=== PATIENT | female | born 1950 | race Caucasian/White ===

== ENCOUNTER 2022-12-24 08:56 | Outpatient (OUT) | payer MEDICARE, SELFPAY ==
--- NOTE | 2022-12-24 08:58 | US_ITS ---
[address] [address] Patient Name: MADAN COONEY MRN: [id number] date: 1950 Sex: F Assigned Patient Location: [place] Current Patient Location: [place] Accession/Order Number: [id number] Exam Date: 12/24/2022 09:15 Report Date: 12/24/2022 12:27 At the request of: FRITZ STONER Procedure: US pelvis transvaginal EXAMINATION: US pelvis transvaginal HISTORY: Adnexal mass N94.89 COMPARISON: No relevant comparison available. TECHNIQUE: Transabdominal and/or transvaginal sonographic examination was performed as indicated by examination type. FINDINGS: UTERUS: Multiple hyperechoic areas within peripheral margin of uterus, suspected to be dystrophic calcifications; largest is 0.4 cm. Uterus size: 6.2 x 3.7 x 1.9 cm ENDOMETRIUM: Trace amount of fluid within fundal endometrial cavity, 1 mm in thickness. Endometrial thickness: 2 mm RIGHT OVARY: Normal size and appearance. Duplex Doppler demonstrates normal waveform and flow; resistive index 0.6. Ovary size: 1.7 x 1.0 x 0.9 cm LEFT OVARY: Normal size and appearance. Duplex Doppler demonstrates normal waveform and flow; resistive index 0.9. Ovary size: 3.0 x 1.6 x 0.9 cm CUL-DE-SAC: Unremarkable. No significant free fluid. BLADDER: Unremarkable. OTHER: None. IMPRESSION: 1. No specific findings to account for patient's left adnexal mass. Consider CT abdomen pelvis with IV and oral contrast for further evaluation if clinically indicated. 2. Suspect dystrophic calcifications within periphery of uterus. No definable mass. Electronically authenticated by: TIFFANIE LEON Date: 12/24/2022 12:27
== END 2022-12-24 08:57 ==
LOC: US 08:56
PROVIDERS: PCP Family Medicine; Visit Provider Obstetrics & Gynecology
DX: E27.8 Other specified disorders of adrenal gland (principal); N94.89 Other specified conditions associated with female genital organs and menstrual cycle
CPT/HCPCS: 76830

== ENCOUNTER 2023-01-22 07:34 | Outpatient (OUT) | payer MEDICARE, SELFPAY ==
--- NOTE | 2023-01-22 08:10 | CA_ITS ---
Patient: MADAN COONEY Exam Date: 01/22/2023 : 1950 Gender:F Ordering : KATE BRODERICK Admission #: [id number] Family : Order #: [id number] CLICK HERE TO VIEW EXAM ECHOCARDIOGRAM REPORT PROCEDURE: CA ECHO DOPPLER COMPLETE INDICATIONS: Nonrheumatic mitral valve regurgitation, h/o atrial fibrillation, hypertension COMPARISON: None. DESCRIPTION: COMPLETE ECHOCARDIOGRAM Real-time transthoracic echocardiography with 2D, M-mode, spectral and color flow Doppler performed. QUALITY: Technical quality was good. LEFT VENTRICLE: Normal chamber size. Proximal septal hypertrophy (sigmoid septum). Normal systolic function. LV EF: Normal left ventricular ejection fraction, (>55%). DIASTOLIC: Diastolic function is indeterminate. ATRIAL SEPTUM: Visually appears intact. LEFT ATRIUM: Mildly dilated. RIGHT ATRIUM: Normal chamber size. RIGHT VENTRICLE: Mildly dilated. Normal right ventricular systolic function. TRICUSPID VALVE: Normal mobility and thickness. No stenosis with mild regurgitation. Doppler studies reveal moderately (45-60) elevated right sided pressures. RVSP 49 mmHg MITRAL VALVE: Normal mobility and thickness. No evidence of mitral valve stenosis. There is no mitral annular calcification. Trivial mitral regurgitation. AORTIC VALVE: Normal trileaflet appearance. No visible sclerosis. Normal leaflet mobility. No evidence of aortic valve stenosis. No aortic regurgitation. AORTIC ROOT: Normal diameter and appearance. PULMONIC VALVE: Normal thickness and mobility. No stenosis. Trivial regurgitation. PERICARDIUM: No evidence of pericardial effusion. IVC: Collapses with inspirations. PLEURA: CONCLUSION: 1. Normal left ventricular systolic function. LVEF is 55 to 60%. 2. Mildly dilated right ventricle with normal systolic function. 3. Mildly dilated right atrium. 4. Mild tricuspid regurgitation. 5. Moderately elevated right-sided pressures. RVSP is 49 mmHg. Adult Echocardiography Procedure Report Left Ventricle LVEDD (3.7 - 5.6 cm): 3.73 cm LVESD (2.2 - 4.0 cm): 2.45 cm LVIVS thickness (0.6 - 1.2 cm): 1.05 cm LVPW thickness (0.5 - 1.0 cm): 0.55 cm e': 0.10 m/s E - e': 5.83 LVOT Max Gradient: 3.61 mm[Hg] LVOT Area (cm2): 0.95 m/s Peak Velocity (LVOT): 0.95 m/s Mean Velocity (LVOT): 0.60 m/s LVOT Diameter 1.91 cm Left Atrium LA Volume Index (2D A2C): 26.92 ml/m2 Left Atrium Systolic Dimension: 3.59 cm Mitral Valve MV E to A Ratio: 0.80 Mitral Valve A-Wave Peak Velocity: 0.71 m/s Mitral Valve E-Wave Peak Velocity: 0.56 m/s Right Ventricle Aorta AO Root Diam: 2.84 cm Ascending Ao Diam: 2.57 cm Aortic Valve AoV Area (Peak Jimenez): 2.77 cm2, 2.77 cm2 AoV Area (VTI): 2.75 cm2, 2.75 cm2 Peak Velocity(Antegrade Flow): 0.98 m/s Peak Gradient(Antegrade Flow): 3.87 mm[Hg] Mean Velocity(Antegrade Flow): 0.70 m/s Mean Gradient(Antegrade Flow): 2.17 mm[Hg] Velocity Time Integral: 22.69 cm Tricuspid Valve Peak Velocity (Regurgitant Flow): 3.39 m/s Pulmonic Valve Mean Gradient: 1.89 mm[Hg] Mean Velocity: 0.65 m/s Peak Velocity: 0.93 m/s, 0.90 m/s Peak Gradient: 3.21 mm[Hg], 3.47 mm[Hg] Right Atrium Right Atrium Systolic Pressure: 24.71 ml, 24.71 ml Dictated by: Ryan Roberts M.D. on 01/27/2023 at 16:52 Approved by: Ryan Roberts M.D. on 01/27/2023 at 16:56
== END 2023-01-22 07:35 | disposition home or self-care (01) ==
LOC: CARD 07:34
PROVIDERS: PCP Family Medicine; Visit Provider Nurse Practitioner
DX: I34.0 Nonrheumatic mitral (valve) insufficiency (principal); I48.0 Paroxysmal atrial fibrillation
CPT/HCPCS: 93306

== ENCOUNTER 2023-02-10 10:47 | Outpatient (OUT) | payer MEDICARE, SELFPAY ==
--- NOTE | 2023-02-10 10:49 | MM_ITS ---
Patient: MADAN COONEY Exam Date: 02/10/2023 : 1950 Gender:F Ordering : DR Ron Peterson . Admission #: [id number] Family : Order #: [id number] CLICK HERE TO VIEW EXAM RADIOLOGY REPORT PROCEDURE: MM TOMOSYNTHESIS SCREENING BI COMPARISON: MG MAMM SCREEN 3D JASMEET CAD, 02/09/2022. MG MAMM SCREEN 3D JASMEET CAD, 02/03/2021. MG MAMM SCREEN JASMEET W CAD, 02/02/2020. MG MAMM SCREEN JASMEET W CAD, 01/21/2015. INDICATIONS: Screening Calculator Name NCI Breast Cancer Risk Assessment Tool 5 Year Breast Cancer Risk 1.70% Lifetime Breast Cancer Risk 4.90% Personal Breast Cancer No Personal Ovarian Cancer No Treatments None Family Cancers Father with prostate cancer at age 58. LOCATION: [facility] BREAST COMPOSITION: Heterogeneously dense,which may obscure small masses. FINDINGS: DIAGNOSTIC CATEGORY 1--NEGATIVE. RIGHT BREAST: No significant suspicious finding. No significant change has occurred. LEFT BREAST: No significant suspicious finding. No significant change has occurred. RECOMMENDATIONS: ROUTINE MAMMOGRAM AND CLINICAL EVALUATION IN 12 MONTHS. PLEASE NOTE: A NORMAL MAMMOGRAM DOES NOT EXCLUDE THE POSSIBILITY OF BREAST CANCER. A CLINICALLY SUSPICIOUS PALPABLE LUMP SHOULD BE BIOPSIED. Dictated by: Leander Donahue M.D. on 02/11/2023 at 14:12 Approved by: Leander Donahue M.D. on 02/11/2023 at 14:14
== END 2023-02-10 10:48 | disposition home or self-care (01) ==
LOC: MAMMO 10:47
PROVIDERS: PCP Family Medicine; Visit Provider Family Medicine
DX: Z12.31 Encounter for screening mammogram for malignant neoplasm of breast (principal); Z80.42 Family history of malignant neoplasm of prostate
CPT/HCPCS: 77063; 77067

== ENCOUNTER 2023-05-11 11:23 | Outpatient (REF) | payer MEDICARE, SELFPAY ==
[2023-05-11 15:41] LABS: Occult Blood Negative
== END 2023-05-11 11:24 | disposition home or self-care (01) ==
LOC: LAB 11:23
PROVIDERS: PCP Family Medicine; Visit Provider Family Medicine
DX: K92.1 Melena (principal)
CPT/HCPCS: G0328

== ENCOUNTER 2023-09-27 10:27 | Outpatient (OUT) | payer MEDICARE, SELFPAY ==
--- OUTSIDE RECORDS SUMMARY | 2023-09-27 10:32 | XMS_ITS | CCD ---
Author Organization [facility] Care Team Providers Care Pony Worker Name Role Phone DIONY ., DR DOBBS Primary Care Unavailable FREDY ., BRANDO Consulting Unavailable FREDY ., BRANDO Attending Unavailable FREDY ., BRANDO Admitting Unavailable DALI MYERS Consulting Unavailable EDWARD, DR TIFFANIE Ragland Consulting Unavailable CASSIE PERRY Attending Unavailable CASSIE PERRY Admitting Unavailable HOY ., DR DOBBS Primary Care Unavailable CASSIE PERRY Consulting Unavailable HOY ., DR DOBBS Admitting Unavailable HOY ., DR DOBBS Primary Care Unavailable HOY ., DR DOBBS Consulting Unavailable HOY ., DR DOBBS Attending Unavailable [place], DR RAFIQ Chi Consulting Unavailable LEAH SEALS Consulting Unavailable LEAH SEALS Attending Unavailable LEAH SEALS Admitting Unavailable HOY ., DR DOBBS Primary Care Unavailable LEAH SEALS Consulting Unavailable LEAH SEALS Attending Unavailable LEAH SEALS Admitting Unavailable HOY ., DR DOBBS Primary Care Unavailable HOY ., DR DOBBS Consulting Unavailable HOY ., DR DOBBS Attending Unavailable HOY ., DR RINUK Patricia Unavailable HOY ., DR DOBBS Primary Care Unavailable RAFIQ SEALS Unavailable MYRA LEUGN Attending Unavailable MYRA LEUNG Admitting Unavailable DIONY ., DR DOBBS Primary Care Unavailable MYRA LEUNG Consulting Unavailable Broderick Solomon Unavailable KATE BRODERICK Attending Unavailable KATE BRODERICK Attending Unavailable Allergies Allergy Classification Reported Allergen(s) Allergy Type Date of Onset Reaction(s) Facility (1 source) Sulfonamides (Antibiotic) Drug allergy (disorder) 09-01-19 21 [facility] Repository (1 source) Sulfamethoxazole / Trimethoprim Drug Allergy NAILS TURNED PURPLE [employer] (PTG) Other (1 source) Sulfonamides (Antibiotic); 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: [SULFA (SULFONAMIDE ANTIBIOTICS)] Propensity to adverse reactions to drug (disorder) 12-03-19 [facility] Repository Medications Current Medications Medication Drug Class(es) Dates Sig (Normalized) Sig (Original) apixaban 5 mg oral tablet (1 source) Factor Xa Inhibitor take 1 tablet by mouth every twelve hours Eliquis 5 MG 1 tablet Orally Twice a day Active azithromycin 250 mg oral tablet (1 source) Macrolide Antimicrobial Start: 04-22-2023 Azithromycin 250 MG 2 tablets on the first day, then 1 tablet daily for 4 days Orally Once a day for 5 day(s) Apr, Active biotin 10 mg oral tablet (1 source) Biotin 10 MG as directed Orally Active Calcium 600 + D 600-200 MG-UNIT (1 source) take 1 tablet by mouth twice daily at mealtime Calcium 600 + D 600-200 MG-UNIT 1 tablet with food Orally bid Active Centrum Silver Adult 50+ - (1 source) Centrum Silver Adult 50+ - as directed Orally Active cranberry preparation 250 mg oral capsule (1 source) Non-Standardized Food Allergenic Extract, Non-Standardized Plant Allergenic Extract Cranberry 250 MG as directed Orally Active hydroCHLOROthiazide / Lisinopril (1 source) Thiazide Diuretic, Angiotensin Converting Enzyme Inhibitor Lisinopril-hydro CHLOROthiazide Active Metoprolol (1 source) beta-Adrenergic Lucretia Metoprolol Succinate ER Active molnupiravir 200 MG Oral Capsule [Lagevrio] (1 source) Start: 04-22-2023 take 4 capsules by mouth every twelve hours Molnupiravir 200 MG 4 capsules Orally every 12 hrs for 5 day(s) Apr, Active potassium 99 mg extended release oral tablet (1 source) take 1 tablet by mouth once daily Potassium 99 MG 1 tablet Orally Once a day Active Simvastatin (1 source) HMG-CoA Reductase Inhibitor Simvastatin Active Vitamin D-3 1000 UNIT (1 source) take 2 tablets by mouth once daily Vitamin D-3 1000 UNIT 2 tablet Orally Once a day Active Completed/Discontinued Medications Medication Drug Class(es) Dates Sig (Normalized) Sig (Original) cyclobenzaprine hydrochloride 10 mg oral tablet (1 source) Muscle Relaxant Start: 1 take 1 tablet by mouth every eight hours Cyclobenzaprine HCl 10 MG 1 tablet as needed Orally Three times a day for 10 days Oct, Not-Taking methylPREDNISolone 4 mg oral tablet (1 source) Corticosteroid Start: 1 methylPREDNISolone 4 MG as directed Orally Once a day for 6 days Oct, Not-Taking Problems Active Problems Problem Classification Problem Date Documented Da te Episodic/Chronic Cardiac dysrhythmias (2 sources) Paroxysmal atrial fibrillation; 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: [Paroxysmal atrial fibrillation] Onset: 12-02-2022 Chronic Cardiac dysrhythmias (5 sources) Palpitations; 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: [PALPITATIONS] Onset: 08-16-2022 Episodic Essential hypertension (2 sources) Essential (primary) hypertension; 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: [Essential (primary) hypertension] Onset: 12-30-2022 Chronic Fluid and electrolyte disorders (1 source) Hypokalemia; 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: [HYPOKALEMIA] Onset: 08-18-2022 Episodic Heart valve disorders (2 sources) Nonrheumatic mitral (valve) insufficiency; 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: [Nonrheumatic mitral (valve) insufficiency] Onset: 12-30-2022 Chronic Mycoses (4 sources) Tinea unguium; 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: [TINEA UNGUIUM] Onset: 10-23-2022 Episodic Osteoporosis (4 sources) Age-related osteoporosis without current pathological fracture; 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: [AGE-REL OSTEOPOR W/O CURR PATH FX] Onset: 08-25-2022 Chronic Other aftercare (1 source) detention (current) use of anticoagulants; 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: [INTERMEDIATE CURRNT USE ANTICOAGULANTS] Onset: 08-18-2022 Episodic Other aftercare (1 source) Other roasterman (current) drug therapy; 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: [OTH TEACHER THEATER ARTS CURRENT DRUG THERAPY] Onset: 08-18-2022 Episodic Other bone disease and musculoskeletal deformities (1 source) Other specified disorders of bone density and structure, multiple sites; 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: [OTH D/O BONE DENSITY STRUCT MX SITE] Onset: 08-28-2022 Episodic Other nutritional; endocrine; and metabolic disorders (1 source) Hypomagnesemia; 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: [HYPOMAGNESEMIA] Onset: 08-18-2022 Chronic Other upper respiratory infections (4 sources) Chronic sinusitis, unspecified; 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: [CHRONIC SINUSITIS UNSPECIFIED] Onset: 03-30-2022 Chronic Other upper respiratory infections (1 source) Acute upper respiratory infection, unspecified Episodic Past or Other Problems Problem Classification Problem Date Documented Da te Episodic/Chronic Other circulatory disease (4 sources) Other specified symptoms and signs involving the circulatory and respiratory systems; 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: [OTH SPEC SX SIGNS INVLV CIRC RS] Onset: 03-12-2022 Episodic Other screening for suspected conditions (not mental disorders or infectious disease) (4 sources) Encounter for screening mammogram for malignant neoplasm of breast; 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: [ENC SCR MAMMO MALIG NEOPLASM BREAST] Onset: 02-09-2022 Episodic Residual codes; unclassified (1 source) Family history of malignant neoplasm of prostate; 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: [FAMILY HX MALIG NEOPLASM PROSTATE] Onset: 02-11-2022 Episodic Unclassified (1 source) Contact with and (suspected) exposure to covid-19 Z20.822 Viral infection (2 sources) COVID-19; 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: [COVID-19] Onset: 04-01-2022 Results Test Name Value Interpretation Reference Range Facility Office Visiton 06-04-2023 Follow-up visit [id number] Sharri Cooney 1950 F Date Provider Department Center 06/04/2023 KATE WHITTEN [facility] No family history on file Level of Service:04536 CO OFFICE/OUTPATIENT ESTABLISHED MOD MDM 30-39 MIN Normal [facility] COVID/FLU RT-PCRon 3 SARS-CoV-2 (COVID-19) RNA VERONICA+probe Ql (Unsp spec) Positive [employer] (PT[employer]) Other COVID/FLU RT-PCR Negative [employer] Other Office Visiton 12-30-2022 Follow-up visit [id number] Sharri Cooney 1950 F Date Provider Department Center [facility] No family history on file Level of Service:19793 CO OFFICE/OUTPATIENT ESTABLISHED MOD MDM 30-39 MIN Reason for Visit and Comments: Follow-up [391414] - Yearly visit- ER sodium mag and potassium low. Wasn't admitted just in ER. No issues since being out Normal [facility] SGOTon 10-23-2022 AST [Catalytic activity/Vol] 45 U/L Critically high 15-37 [facility] Comment on above: Performed By: #### A LT, AST #### [facility] Laboratory [address] [place] [address] Dr. Fred Jackson SGPTon 10-23-2022 ALT [Catalytic activity/Vol] 48 U/L Normal 14-59 [facility] Comment on above: Performed By: #### A LT, AST #### [facility] Laboratory [address] [place] [address] Dr. Fred Jackson SGOTon 09-10-2022 AST [Catalytic activity/Vol] 40 U/L Critically high 15-37 [facility] Comment on above: Performed By: #### A LT, AST #### [facility] Laboratory [address] [place] [address] Dr. Fred Jackson PTon 09-10-2022 ALT [Catalytic activity/Vol] 52 U/L Normal 14-59 [facility] Comment on above: Performed By: #### A LT, AST #### [facility] Laboratory [address] [place] [address] Dr. Fred Jackson XR DEXA BONE DENSITYon 08-25 XR DEXA BONE DENSITY DEXA Bone Density Study CLINICAL: Evaluate bone mineral density. Postmenopausal COMPARISON: FINDINGS: The bone density study was assessed by dual-energy x-ray absorptiometry with the NormOxys scanner. The test results are expressed in T-Score, which is used for diagnosis for osteoporosis, and reflects the standard deviations from the mean peak bone mineral density in young adults. Additional information regarding the Z-Score reflects the standard deviations from the mean peak bone mineral density for age- and gender- matched subject. Lumbar Spine (L1-L4): BMD (gm/cm2): 0.918 T-Score: -2.2 Left Hip: BMD (gm/cm2): 0.867 T-Score: -1.1 Left Femoral Neck: BMD (gm/cm2): O.821 T-Score: -1.6 Right Hip: BMD (gm/cm2): 0.856 T-Score: -1.2 Right Femoral Neck: BMD (gm/cm2): 0.821 T-Score: Get a 1.6 IMPRESSION: 1. Lumbar spine indicates osteopenia. 2. Both hips indicate osteopenia. REFERENCE: In children, postmenopausal women and males under age 50 not at increased risk for fractures, only Z-Scores, not T-Scores, are used to indicate fracture risk. A Z-Score above -2.0 is defined as within the expected range for age and Z-Score at or less than -2.0 is below the expected range for age. A Z-Score below the expected range for age in a patient with recent fractures and/or chronic corticosteroid treatment is consistent with a diagnosis of osteoporosis. In postmenopausal women and males over 50, comparison of the measured bone mineral density with the average value in young normal subjects (the T-Score) has been found to be useful in assessing fracture risk. Fracture risk approximately doubles for each 1.0 standard deviation (SD) that the individual's hip or spine bone mineral density is below the average value of young normal subjects. The World health Organization (WHO) has provided the following definitions: 1. Normal: T-Score within one standard deviation of young adult mean value (T-Score greater than -1.0). 2. Osteopenia (low bone mass): T-Score more than one standard deviation below the young adult mean but less than 2.5 standard deviations below the young adult mean (T-Score between -1.0 and -2.5). 3. Osteoporosis: T-Score more than 2.5 standard deviations below the young adult mean (T-Score less than -2.5). 4. Sever Osteoporosis (established osteoporosis): T-Score more than 2.5 standard deviations below young adult and one or more fragility fracture (T-Score less than -2.5 + fragility fractures). Electronically authenticated by: RAFIQ SEALS Date: 2022-08-25 09:50 Normal [facility] BNPon 08-16-2022 Natriuretic peptide B (Bld) [Mass/Vol] 87.0 pg/mL Normal <=900.0 [facility] Comment on above: Performed By: #### T SH, CMP, BNP, CMADM ####[facility] [address] [place], [place] [address]RjCaroline Fred Jackson CARDIAC JASSI ADMITon 023 CK [Catalytic activity/Vol] 152 U/L Normal 26-192 [facility] Comment on above: Performed By: #### T SH, CMP, BNP, CMADM ####[facility] [address] [place] [id number]. Fred Jackson CK.MB [Mass/Vol] 2.96 ng/mL Normal <=3.60 [facility] Comment on above: Performed By: #### T SH, CMP, BNP, CMADM ####[facility] [address] [place] [address]Dr. Fred Jackson HSTROP 6.1 pg/mL Normal 4.0-51.3 [facility] Comment on above: Result Comment: CUT- OFF POINTS HAVE BEEN ESTABLISHED BASED ON THE FOURTH UNIVERSAL DEFINITIONS OF MYOCARDIAL INFARCTION. THE UPPER REFERENCE LIMIT (URL) OF TROPONIN, DEFINED THE 99TH PERCENTILE OF cTnI DISTRIBUTION IN A REFERENCE POPULATION, HAS BEEN CONFIRMED THE DECISION THRESHOLD FOR WI DIAGNOSIS. Performed By: #### T SH, CMP, BNP, CMADM ####[facility] [address] [place] [address]Dr. Fred Jackson ANGELI 80 ng/mL Normal 9-82 [facility] Comment on above: Performed By: #### T SH, CMP, BNP, CMADM ####[facility] [address] [place] [address]Dr. Fred Jackson CBC AUTO DIFFon 08-16-2022 BASO # 0.1 103/ul Normal 0.0-0.1 [facility] Comment on above: Performed By: #### C BC #### [facility] Laboratory [address] [place] [address] Dr. Fred Jackson Basophils/100 WBC (Bld) 1.4 % Normal 0.2-2.0 [facility] Comment on above: Performed By: #### C BC #### [facility] Laboratory [address] [place] [address] [address] Fred Jackson EO # 0.3 103/ul Normal 0.0-0.7 [facility] Comment on above: Performed By: #### C BC #### [facility] Laboratory [address] [place] [address] Dr. Fred Jackson Eosinophils/100 WBC (Bld) 3.1 % Normal 0.9-7.0 [facility] Comment on above: Performed By: #### C BC #### [facility] [address] [place] [address] [address] Frde Jackson Erythrocyte distribution width (RBC) [Ratio] 12.0 % Normal 11.0-15.0 [facility] Comment on above: Performed By: #### C BC #### [facility] [address] [place] [address] [address] Fred Jackson Hematocrit (Bld) [Volume fraction] 40.5 % Normal 36.0-48.0 [facility] Comment on above: Performed By: #### C BC #### [facility] [address] [place] [address] [address] Fred Jackson Hemoglobin (Bld) [Mass/Vol] 13.8 g/dL Normal 12.0-16.0 [facility] Comment on above: Performed By: #### C BC #### [facility] [address] [place] [address] Dr. Fred Jackson IG # 0.06 10e3/ul Critically high 0.00-0.03 [facility] Comment on above: Performed By: #### C BC #### [facility] [address] [place] [address] [address] Fred Jackson IG % 0.6 % Critically high 0.0-0.5 [facility] Comment on above: Performed By: #### C BC #### [facility] [address] [place] [address] Dr. Fred Jackson LYMPH # 3.8 103/ul Normal 1.2-3.8 [facility] Comment on above: Performed By: #### C BC #### [facility] [address] [place] [address] Dr. Fred Jackson Lymphocytes/100 WBC (Bld) 36.6 % Normal 20.5-60.0 [facility] Comment on above: Performed By: #### C BC #### [facility] [address] [place] [address] [address] Fred Jackson MANUAL DIFF REQ NO Normal [facility] [place] [facility] Comment on above: Performed By: #### C BC #### [facility] [address] [place] [address] Dr. Fred Jackson MCH (RBC) [Entitic mass] 31.2 pg Normal 26.7-34.0 [facility] Comment on above: Performed By: #### C BC #### [facility] [address] [place] [address] Dr. Fred Jackson MCHC (RBC) [Mass/Vol] 34.1 g/dL Normal 29.9-35.2 [facility] Comment on above: Performed By: #### C BC #### [facility] [address] [place] [address] Dr. Fred Jackson MCV (RBC) [Entitic vol] 91.6 fL Normal 81.0-99.0 [facility] Comment on above: Performed By: #### C BC #### [facility] [address] [place] [address] Dr. Fred Jackson MONO # 1.2 103/ul Critically high 0.3-0.8 [facility] Comment on above: Performed By: #### C BC #### [facility] [address] [place] [address] Dr. Fred Jackson Monocytes/100 WBC (Bld) 11.3 % Normal 1.7-12.0 [facility] Comment on above: Performed By: #### C BC #### [facility] [address] [place] [address] Dr. Fred Jackson NEUT # 4.9 103/ul Normal 1.4-6.5 [facility] Comment on above: Performed By: #### C BC #### [facility] [address] [place] [address] Dr. Fred Jackson Neutrophils/100 WBC (Bld) 47.0 % Normal 43.0-75.0 [facility] Comment on above: Performed By: #### C BC #### [facility] [address] [place] [address] Dr. Fred Jackson Platelet mean volume (Bld) [Entitic vol] 8.9 fL Critically low 9.5-13.5 [facility] Comment on above: Performed By: #### C BC #### [facility] [address] [place] [address] [address] Fred Jackson PLT 404 103/ul Normal 150-450 [facility] Comment on above: Performed By: #### C BC #### [facility] [address] [place] [address] [address] Fred Jackson RBC 4.42 106/ul Normal 4.20-5.40 [facility] Comment on above: Performed By: #### C BC #### [facility] [address] [place] [address] [address] Fred Jackson WBC 10.3 103/ul Normal 4.0-11.0 [facility] Comment on above: Performed By: #### C BC #### [facility] [address] [place] [address] [address] Fred Jackson PROF 14(COMP METB)on 023 Albumin [Mass/Vol] 4.3 g/dL Normal 3.4-5.0 [facility] Comment on above: Performed By: #### T SH, CMP, BNP, CMADM ####[facility] [address] [place] [address]DrCaroline Jackson Albumin/Globulin [Mass ratio] 1.2 {ratio} Normal [facility] Comment on above: Performed By: #### T SH, CMP, BNP, CMADM ####[facility] [address] [place] [address]DrCaroline Jackson ALP [Catalytic activity/Vol] 96 U/L Normal 46-116 [facility] Comment on above: Performed By: #### T SH, CMP, BNP, CMADM ####[facility] [address] [place] [id number] Jackson ALT [Catalytic activity/Vol] 34 U/L Normal 14-59 [facility] Comment on above: Performed By: #### T SH, CMP, BNP, CMADM ####[facility] [address] [place] [address]DrCaroline Jackson Anion gap [Moles/Vol] 16.6 mmol/L Normal [facility] Comment on above: Performed By: #### T SH, CMP, BNP, CMADM ####[facility] [address] [place] [address]Dr. Fred Jackson AST [Catalytic activity/Vol] 39 U/L Critically high 15-37 [facility] Comment on above: Performed By: #### T SH, CMP, BNP, CMADM ####[facility] [address] [place] [address]Dr. Fred Jackson Bilirubin [Mass/Vol] 0.8 mg/dL Normal 0.2-1.0 [facility] Comment on above: Performed By: #### T SH, CMP, BNP, CMADM ####[facility] [address] [place], [place] [address]Dr. Fred Jackson Calcium [Mass/Vol] 10.1 mg/dL Normal 8.5-10.1 The [facility] Comment on above: Performed By: #### T SH, CMP, BNP, CMADM ####[facility] [address] [place], [place] [address]Dr. Fred Jackson Chloride [Moles/Vol] 91 mmol/L Critically low 98-107 [facility] Comment on above: Performed By: #### T SH, CMP, BNP, CMADM ####[facility] [address] [place], [place] [address]Dr. Fred Jackson CO2 [Moles/Vol] 25.5 mmol/L Normal 21.0-32.0 [facility] Comment on above: Performed By: #### T SH, CMP, BNP, CMADM ####[facility] [address] [place], [place] [address]Dr. Fred Jackson Creatinine [Mass/Vol] 0.95 mg/dL Normal 0.55-1.02 [facility] Comment on above: Performed By: #### T SH, CMP, BNP, CMADM ####[facility] [address] [place] [address]Dr. Fred Jackson EGFR-AF MOLDOVAN >60 Normal >=60 [facility] Comment on above: Performed By: #### T SH, CMP, BNP, CMADM ####[facility] [address] [place] [address]Dr. Fred Jackson EGFR-NON AF MOLDOVAN 58 mL/min/1.73m2 Critically low >=60 [facility] Comment on above: Performed By: #### T SH, CMP, BNP, CMADM ####[facility] [address] [place] [address]Dr. Fred Jackson Globulin (S) [Mass/Vol] 3.6 g/dL Normal [facility] Comment on above: Performed By: #### T SH, CMP, BNP, CMADM ####[facility] [address] [place] [address]Dr. Fred Jackson Glucose [Mass/Vol] 116 mg/dL Critically high 74-106 [facility] Comment on above: Performed By: #### T SH, CMP, BNP, CMADM ####[facility] [address] [place] [address]Dr. Fred Jackson Potassium [Moles/Vol] 3.1 mmol/L Critically low 3.5-5.1 [facility] Comment on above: Performed By: #### T SH, CMP, BNP, CMADM ####[facility] [address] [place] [address]Dr. Fred Jackson Protein [Mass/Vol] 7.9 g/dL Normal 6.4-8.2 [facility] Comment on above: Performed By: #### T SH, CMP, BNP, CMADM ####[facility] [address] [place] [address]Dr. Fred Jackson Sodium [Moles/Vol] 130 mmol/L Critically low 136-145 [facility] Comment on above: Performed By: #### T SH, CMP, BNP, CMADM ####[facility] [address] [place] [address]Dr. Fred Jackson Urea nitrogen [Mass/Vol] 17.0 mg/dL Normal 7.0-18.0 [facility] Comment on above: Performed By: #### T SH, CMP, BNP, CMADM ####[facility] [address] [place] [address]Dr. Fred Jackson Urea nitrogen/Creatinin e [Mass ratio] 17.9 mg/mg Normal [facility] Comment on above: Performed By: #### T SH, CMP, BNP, CMADM ####[facility] [address] [place] [id number]. Fred Jackson PROTIMEon 08-16-2022 INR Coag (PPP) [Relative time] 1.01 {INR} Normal [facility] Comment on above: Performed By: #### P TT, PT ####[facility] [address] [place] [address]Dr. Fred Jackson INR GUIDELINES SEE BELOW Normal [facility] [facility] Comment on above: Result Comment: DOTTY RED INR: 2.0 - 3.0 CONDITIONS NOT LISTED BELOW 2.5 - 3.5 FOR PROSTHETIC HEART VALVE REPLACEMENT 2.5 - 3.5 RECURRENT THROMBOSIS Performed By: #### P TT, PT ####[facility] [address] [place] [address]Dr. Fred Jackson PT Coag (PPP) [Time] 10.7 s Normal 9.0-11.6 [facility] Comment on above: Performed By: #### P TT, PT ####[facility] [address] [place] [address]Dr. Fred Jackson PTTon 08-16-2022 aPTT Coag (Bld) [Time] 33.9 s Normal 22.3-36.2 [facility] Comment on above: Performed By: #### P TT, PT ####[facility] [id number] [place] [address]Dr. Fred Jackson TROPONIN, HIGH SENSITIVITYon 08-16-2022 HSTROP 15.1 pg/mL Normal 4.0-51.3 The [facility] Comment on above: Result Comment: CUT- OFF POINTS HAVE BEEN ESTABLISHED BASED ON THE FOURTH UNIVERSAL DEFINITIONS OF MYOCARDIAL INFARCTION. THE UPPER REFERENCE LIMIT (URL) OF TROPONIN, DEFINED THE 99TH PERCENTILE OF cTnI DISTRIBUTION IN A REFERENCE POPULATION, HAS BEEN CONFIRMED THE DECISION THRESHOLD FOR WI DIAGNOSIS. Performed By: #### H STROPN #### [facility] Laboratory [address] [place], [place] [address] Dr. Fred Jackson TSHon 08-16-2022 TSH 4.364 uIU/mL Critically high 0.358-3.740 The [facility] Comment on above: Performed By: #### T SH, CMP, BNP, CMADM ####[facility] [address] [place], [place] [address]IwDr. Fred Jackson XR CHEST 1 Von 08-16-2022 XR CHEST 1 V EXAM: XR CHEST 1 V HISTORY: CHEST PAIN, UNSPECIFIED COMPARISON: 02/10/2021 TECHNIQUE: Chest single view. FINDINGS: Lines/tubes/devices: EKG leads overlie the chest. No indwelling lines are seen. Cardiomediastinum: Cardiac silhouette appears normal in size. Mildly tortuous aorta. Vasculature: No increased pulmonary vasculature. Lungs/pleura: No consolidation, sizeable effusion, or visible pneumothorax. Minimal linear scarring or subsegmental atelectasis towards the left lung base. Bones/soft tissues: Bony thorax appears grossly unchanged as seen. Mild chronic degenerative changes of the spine with slight apex right curvature. Regional soft tissues unremarkable. IMPRESSION: No acute cardiopulmonary findings. Electronically authenticated by: DALI MYERS Date: 2022-08-16 00:02 Normal [facility] Cov[facility]-19 PCR ([facility]on 03-06 SARS-CoV-2 (COVID-19) RNA VERONICA+probe Ql (Unsp spec) Detected Critically abnormal NOT DETECTED [facility] Comment on above: Result Comment: This test is not yet approved or cleared by the [place] FDA. When there are no FDA-approved or cleared tests available, and other criteria are met, FDA can make tests available under an emergency access mechanism called an Emergency Use Authorization (EUA). The EUA for this test is supported by the Strip Machine Operator of Health and Human Service's (HHS's) declaration that circumstances exist to justify the emergency use of in vitro diagnostics for the detection and/or diagnosis of the virus that causes COVID-19. This EUA will remain in effect (meaning this test can be used) for the duration of the COVID-19 declaration justifying emergency of IVDs, unless it is terminated or revoked by FDA (after which the test may no longer be used). Performed By: #### C VDTBH ####[id number] [place], [place] [address]Yf. Fred Jackson US CAROTID ART BILon 022 US CAROTID ART JASMEET EXAMINATION: US CAROTID ART JASMEET HISTORY: Cardiovascular symptoms COMPARISON: No relevant comparison available. TECHNIQUE: Duplex Doppler ultrasound analysis of carotid and vertebral arteries. . Bilateral carotid arterial duplex examination was performed using B-mode, color flow and spectral analysis. Carotid stenosis is reported according to validated velocity parameters, similar to NASCET criteria. FINDINGS: RIGHT CAROTID ARTERY: No visible stenosis or significant plaque. RIGHT VERTEBRAL: Antegrade flow. Subclavian: PSV: 127.6 cm/s EDV: 0.0 cm/s CCA: Prox: PSV: 95.0 cm/s EDV: 23.0 cm/s Mid: PSV: 90.5 cm/s EDV: 25.4 cm/s Distal: PSV: 96.4 cm/s EDV: 23.5 cm/s BULB: PSV: 54.8 cm/s EDV: 12.8 cm/s ICA: Prox: PSV: 72.5 cm/s EDV: 17.6 cm/s Mid: PSV: 75.8 cm/s EDV: 20.8 cm/s Distal: PSV: 91.9 cm/s EDV: 24.1 cm/s ECA: PSV: 91.9 cm/s EDV: 14.4 cm/s VERTEBRAL: PSV: 54.7 cm/s EDV: 12.8 cm/s ICA/CCA ratio: PSV: 1.0 EDV: 1.0 LEFT CAROTID ARTERY: No visible stenosis or significant plaque. LEFT VERTEBRAL: Antegrade flow. Subclavian: PSV: 175.3 cm/s EDV: 0.0 cm/s CCA: Prox: PSV: 90.5 cm/s EDV: 21.5 cm/s Mid: PSV: 78.6 cm/s EDV: 21.5 cm/s Distal: PSV: 78.6 cm/s EDV: 19.5 cm/s BULB: PSV: 58.9 cm/s EDV: 15.6 cm/s ICA: Prox: PSV: 66.8 cm/s EDV: 19.5 cm/s Mid: PSV: 110.1 cm/s EDV: 27.4 cm/s Distal: PSV: 80.5 cm/s EDV: 21.5 cm/s ECA: PSV: 118.3 cm/s EDV: 16.0 cm/s VERTEBRAL: PSV: 38.4 cm/s EDV: 7.6 cm/s ICA/CCA ratio: PSV: 1.4 EDV: 1.4 IMPRESSION: 1. 0-49% flow stenosis within the right and left carotid arteries. 2. No significant atherosclerotic disease. 3. Incidental note is made of several colloid cysts within thyroid gland. Electronically authenticated by: TIFFANIE LEON Date: 2022-03-12 14:51 Normal [facility] MAMM SCREEN 3D JASMEET CADon 02-09-2022 MAMM SCREEN 3D JASMEET CAD Patient: SHARRI COONEY Exam Date: 02/09/2022 : 1950 Gender:F Ordering : DR RINKU PETERSON . Admission #: [id number] Family : Order #: [id number] CLICK HERE TO VIEW EXAM RADIOLOGY REPORT PROCEDURE: MAMMOGRAM SCREENING 3D BILATERAL CAD COMPARISON: MAMM SCREEN JASMEET W CAD, 02/02/2020. MAMM SCREEN 3D JASMEET CAD, 02/03/2021. INDICATIONS: Screening mammography Calculator Name NCI Breast Cancer Risk Assessment Tool 5 Year Breast Cancer Risk 1.70% Lifetime Breast Cancer Risk 5.10% Personal Breast Cancer No Personal Ovarian Cancer No Treatments None Family Cancers Father with prostate cancer at age 58. LOCATION: [facility] BREAST COMPOSITION: Heterogeneously dense,which may obscure small masses. FINDINGS: DIAGNOSTIC CATEGORY 1--NEGATIVE. NO CHANGE FROM COMPARISON ASSESSMENT. Scattered benign-appearing calcifications are present. Scattered benign-appearing lymph nodes are present. RIGHT BREAST: No significant suspicious finding. LEFT BREAST: No significant suspicious finding. RECOMMENDATIONS: ROUTINE MAMMOGRAM AND CLINICAL EVALUATION IN 12 MONTHS. PLEASE NOTE: A NORMAL MAMMOGRAM DOES NOT EXCLUDE THE POSSIBILITY OF BREAST CANCER. A CLINICALLY SUSPICIOUS PALPABLE LUMP SHOULD BE BIOPSIED. Dictated by: Rafiq Zuñiga MD on 02/09/2022 at 09:48 Approved by: Rafiq Zuñiga MD on 02/09/2022 at 09:50 Normal [facility] Coding Summary.on 03-12-2021 Coding Summary. [id number] Gh0bWw+PGhlYWQ+PE1FV GBiR76kpHIhyD7HF0dNS O0PBJQUNCYDTQ0WEL7et AR2PWfyP0QudtJw SdjzqLWmJM91ZKm4PMF4 nAimJSjhhO4rdOHiB4a9 PpVyHM34uW55QJuzBKBb GiZ4RbFskzibbIRn X8uvQeWxuNZmFxq+PHRh YmxlIHdpZHRoPScxMDAl NaPcgVmqZV0kPe6cJJMy LWNvbGxhcHNlOiBj q4xaCCZpACtoDG4tmVqh X2BbdIE1ZXDmo2c8Xg68 dHI+NJNgUOD5uRpdAZxv h565QqRfq3kxPOV4 sEPqVTgfYDJ5S27co6X7 PLLaTEXeWDS3cVZ4cN0n vOjeiuyyC3NpiQRuSbB7 GOB4qDQrzM1jcMvf hwglyM6kXti+M55BTB3K LCRJEV0UNgz2T0CuIjud dHI+KD86TXAwAG60sPJi jCQml3konEn4RtMf LCLzJNY1vUknVVdfv6Ff ALAiA65ugRSzz7F7EDZu fYhjtWKuUeBuxDC8uD6w TIufaudkp7lovwiz Oinkl2bsso87lE56V87l TJyoSHFpXHF9FNOyUOHz kWrdzi1lxU7zKy3+IDxj p7zoc1wwuJc5EdEb BKPyfmYayZnsFAS7f2Gg Fj02T0TttUyzt4IdBux2 us22zYQhn0W6qDY6CIhc IZDtyG3dKWxrYoL0 XPGgRuJssO95gDUkZQfw Gb5jzOslbJxlYU5mQHZj ufjgTPItgK9zQHLxkVPr fAccZS2fKEFgpgas d479TaVdEBR3GNKwyEZf P4GklT6xHbMaMVHvEQPp Z7GjaXZiUFgqN600CPky PxW0AJKkycXrD5Qw COVueFprOyA9y4N8Xx4F i0DivuqjVHG5RBabUUX3 UvO8UhNwMjS0N1IrNif0 RJYxnHpoKF2zG2Ij AHVxgfydknaglGC7LHAt AXYpaF07rVFlATutAp0z d8S0s571ZQVyIHTvwG35 Bu0bdUbmMCUxdKBB mQ9kmwhzh4fnjpebCpBz HSLfGAh9EHi2YFCcpDke OiNxZLS5WfF9NJV5mULr xP5izGefoxbcvQ5d Oyc+K29luG2kYCM6CJY9 nisrUMSmpnEzVQ60AE72 Z8KxEtfahPUbqPM+PGRp jkLzzNcuUU1dNnHk w5jgq4KpLCjhI1ToDIWa OTbaFne6WGYtEHG6aLW2 uL2vUOKcDCtqi1Y2jZW8 X9PwznQwrb6og1hc LFGtRUbwS41qhKGmm7D5 OOSuwVI3SPNrfTggAtZn dB27Nid+QVWbnCiku2Yf Qsejz9jqp4jrnMd8 IjMwJSIgdmFsaWduPSJ0 w4XiTz04A52eDWqbNABo PNEfTVTpHDCqsWaalf3b eX1oKb1+PGNvbCB3 vGA7yK4dJEYiYpX6AWaj I161PtFozMEtYjygl7xr j8vpzEp8KkHfQLVhltFy fAdvNLQ3u3JsYf53 R03aCFssFJJiGPVyNZDj YVIhtSoyax4huY2eIo3+ MP7ir9pgqu80rR98fGV+ VFFfUOY7qKcjPIaq JDPaqJ0fCBgeDeR6BOLc RcBzmA51cPXuTVnmIz4d dKsohHduHY9tJBIfvuwn t539UqKdg8pbDPKt aUHwUZtzGDH5J44eg9M3 IFNyUQLnDZS4gFY6sE2x bGlnbjogbGVmdDsgdmVy jWamQTepIKvdT177 IHRvcDsnPlBhdGllbnQg HgTdWSi6G6LfAkp3QCEi yIvhVP0xgKFpNYfxXh9w hEvuzBdbNC3aKAVw lgvrg303GfTrl7lkHKIy yHYiNYohMIC1V94jw8C7 AGXsSZYnOPC5iSB9hT6n bGlnbjogbGVmdDsg ziZczMiuXTjaYMzqW506 IHRvcDsnPkJpcnRoIERh dWD3ZS86LY73ePQsl9C6 pPJ8I0NxWLIeerfw wsqdhEH9DHHfEFSvfB00 Ju9caGgpTz8yNBNsGJY5 EVHyaUFaB0SlkE0pBxEi SLWgXSSiC6WctKPo WNfzO146ZYxkNpC3ZEJu zlTzP1BbFMGpjZfvJfC3 h7E8Yi4KN6W7BG37OE88 mNQzd6E3aGE7K1Cj IUQarroccuyenNX8EGBy GMZobV40Sx0ttXkzKv2g UQVqUVH6KPDyfDJlB2Fh pI9yDcEoQOEhRAPw J5WmwFWtRHumU883YVoy BaL3FATqmuFsM4VxFEJa vWbmKvI3i9Y9Ig4GLLd2 WB85PX04yAAqe6A0 lRT1J1SlCKLmqifocccs nUX5CDPeUMRdlN28Qi0i xGfdCg3cGVZbIUB8XEEv wIFhV1QvrE5eBmCv GNEkIAWeI8HhwMAzOIxu I461NEswUkB7ZJYpuoOq D5KjJXJnnLsaRgM0u7Q1 Vv0DBCLnQD85OTL5 xQF5YM51PV72P3TlIjuo dGFibGU+PHRhYmxlIHdp ZHRoPScxMDAlJyBzdHls YT4pDo4mMLBtPGSr vLlowWAqCjMmn1rvWPCl GSdzEY7uyGfaD1FlpOV7 IAChp6w3Gc29P00zQ2Jb dXA+ZWXrqDW4mZL9 lU1jEdMqOeW8XRijN268 LkXpfFFbGhjma8mam4od uFk0GqG1CZGxawOdnEct FIX8q8SmVn92Q15h IHdpZHRoPSIxNSUiIHZh oBjxtp7btI7rEl8+PGNv hFP4uSV7nZ1mHuQnUiP9 IFrhK014JjQnmRCf Uhqff5jzj2lmpUr1SwOs RSFyeyIgoKfbUXT3r0Dx So41R6AcnTdei2JtEfy6 ie68yGRbt8Q9iMU6 P3BzCQDjnmjlcYOcrMob BA3cAGYrmyjaXBUudK5e ERNkT4h2EfLmCyO7IZas X7FlqcS8UCWvnRZs BJqgLUJ7F24ej3Z1ZQAn NKApOGQ9rGP4iY9jkBgt bjogbGVmdDsgdmVydGlj NKpxPHwsQ950APMp zNlsYWSadC9uTHZoiMOz jJyaNZ5uZWDhllnuBdEE UlJPTEwsIFNVWkFOTkU8 U5VzRyv0FROfhPul NB3yaJUpGCodSd4dlCvb oVtlKQ6oQIWduvlePSAx yK7fAPMslIEjgSadPI0i ZCBapjvxa538VpVp UQS3VXQpgJYsY7YtxX6w BnZyVCEdPYSuE0DvwJNv JUwuD268FBacPzA0PEGd gsLbU5PxNMTyqFlc VrG2j9I4Du3xPj3tJC0p SUCzXI81EO39hOXpq7T6 nBA4U7BuRRGdhrmnlmtx bCM5LUExWJGwnN09 pSYhYDdgLt6qa9V5c711 XXAkUXGczA33Rf7snGoy STShpEPXyH7scdonc6kq cjogIzAwMDAwMDt0 PXr7DUPzwMidUzGrQSL4 KsJ0FPC4uAIgwR1glYud edgjiI3tLjs+NjggWWVh uoV1X9UrHyk1MAOn iZbwUR3kwVGsSSmxOb5q gQxfiAhjAE1tXMQkowrx HWPhbR4kMUKivREquSal MD9qCMKiuxsgb048 PpOuZBK8SQQxwHAlM2Ap aR2dVzVjOUPkSGVrE7Ww oZRpRXulW436YYchIbA8 VXAtpyAkV7BsHRYt qEbaUfH9x9Q3Oy0WCE5i sSJ3T0SkBrw7QUJxoXgc TC5hmFWlXRscYt9tvUum wXpxVB7wQNVvgwdn TWMvhH2eNOBtiGDpzItj SQ5gVKQkfxfwa933VpFo YYO6RIMvjBRgX4RbpD1p EzYpCLWfQKAwT1Xz wDTeTJttB599EGuiFdO0 ONQhvlKgT6EhOMLszFbb KpO4s2W1Oj5KASWbNQBv rHAjXbJ0G9FrBoxv dHI+AQ52JPQgVH46yCYd gBGvc6lmsGq3DmAuXDGj WBM2lEkgMPemq2KjQLXb K85ixFEww2X8ICXh wItziAMjMtLodOD9rC6i DTurgxrjk0hlkhnoDihn d2zfuv76hY14Z50yQHnm ZHRoPSIzMCUiIHZh gSyadq5ehH0pMr6+PGNv cZE4vMY5wI9jNpHiXzU6 MIkpT487WgEmfXXxXlyl m9kkk8qamOb1SxBi IJCjkvLbzImuGXC5d5Xc Tb46S89nCDvzGZEaCZYn JBFlVNAfgJfpre7qpW2j Ii8+LT1qz4gyje14 hY85zFG+BIZmGEJ7vZrn CQimELFvrM3mZLnsBsP9 YYStCvIojX71uZUuPRgi Cv9ssYaaiPxwGS1o PGPgxpyvd068McVyq2qa UHFsyYFfMQnwKCC9T78w w3G5FEDrXDDuLRB7nFH3 bY3suEvydorqiUTi dDsgdmVydGljYWwtYWxp G543NXHqwPqwMcNjrPYf N3vsldGZTY9lWzpvmRS+ FUFfLFQ2kGqbHZzb MJFxeJ4gVSWkA0i6JeRg UoB2AUnxY4VekpI7JDAk gZNzICXygVROzF2stqrk c7akmzmxRiOfXYOy KLp4QYn7GWBavZsiMvFq UED6SuC9WNX1eLFrbW0f wViedsstaF5qWvj+RklO OjwvdGQ+PHRkIHN0 yAgeFNmoFHGrdO4vUEKo L2v8MlSwIcS2FMjlP5Ud qdE6ZOLqwZJaZGQihLTP kN1cyxvpc1iynfge PoJpRJEeJOp8KFb2REFl mBecUxUfEGM3QkQ5RWI1 gINszF6mhTfpoacurD0v Oyc+TVJOOjwvdGQ+ ULAnSUQ6mYpzKKnrJHMu lA3mYVLiS8i8WjFgUlU9 NEryE2NhjcK5UAEbwIBx PKNdsGVDbN5vrpkb m8jqymxwJvNhOIXfWLt8 TNt1LZUxtLvqUdZeBHY7 XqD3MQV8uAQgwL7dbGlo ohxpvJ5nMnw+UGF5 BOT0ZR26UG48F9DpZzqy dGFibGU+PHRhYmxlIHdp ZHRoPScxMDAlJyBzdHls CI4cHc2oVGTgJAUe bGxh (more content not included)... [facility] Physician Orderon 02-19-2021 Physician Order [id number]:127 [facility] Vital Signs Date Time Vital Sign Value Performing Clinician Facility 04-22-2023 12:20-0400 Body height 153.67 cm Broderick Solomon Other [facility] Other 04-22-2023 12:20-0400 Body mass index (BMI) [Ratio] 24.58 kg/m2 Broderick Solomon Other [facility] Other 04-22-2023 12:20-0400 Body temperature 98.3 [degF] Broderick Solomon Other [facility] Other 04-22-2023 12:20-0400 Body weight 58.06 kg Broderick Solomon Other [facility] [facility] Other 04-22-2023 12:20-0400 Respiratory rate 18 /min Broderick Solomon Other [facility] [facility] Other 04-22-2023 12:20-0400 SaO2% (BldA) [Mass fraction] 96 % Broderick Solomon Other [facility] [facility] Other Encounters Encounter Date Encounter Type Care Provider Facility Start: 06-04-2023 End: 06-04-2023 [facility] Start: 04-22-2023 End: 04-22-2023 ambulatory Broderick Solomon Other [facility] [facility] Other Start: 04-22-2023 Office outpatient vi sit 15 minutes Broderick Solomon [facility] Start: 12-30-2022 End: 12-30-[address] [facility] Start: 10-23-2022 End: 10-24-2022 ambulatory LEAH SEALS Facility:[facility] Start: 09-10-2022 End: 09-11-2022 ambulatory LEAH SEALS Facility:[facility] Start: 08-25-2022 End: 08-26-[address] RINKU PETERSON . Facility:[facility] Start: 08-16-2022 End: 08-16-[address] RINKU PETERSON . Facility:[facility] Start: 03-30-2022 End: 03-30-2022 ambulatory MYRA LEUNG Facility:[facility] Start: 03-12-2022 End: 03-13-[address] TIFFANIE LEON Facility:[facility] Start: 02-09-2022 End: 02-10-[address] RINKU PETERSON . Facility:[facility] Immunizations Immunization Date Immunization Notes Care Provider Henry greenberg 12-19-2016 tetanus toxoid, reduced diphtheria toxoid, and acellular pertussis vaccine, adsorbed Broderick Solomon Other [facility] [facility] Other Payers Date Payer Category Payer Medicare [id number] 1950 Unknown [id number] 2.16.84 [id number] 1950 Unknown [id number] 2.16.84 [id number] 1950 Unknown [id number] 2.16.84 [id number] 1950 Unknown [id number] 2.16.84 [id number] 1950 Unknown [id number] 2.16.84 [id number] 1950 Unknown [id number] 2.16.84 [id number] 1950 Unknown [id number] 2.16.84 [id number] Social History Date Type Detail Facility Unknown if ever smoked [facility] Other Sex Assigned At Sex Assigned At Bir th [facility] [facility] Other Progress note 06-04-2023 Note Date & Type Note Facility 06-04-2023 Note [facility] Consult Note Reason for visit: 6 month follow up, PAF/MR/HTN/HLD 06/04/23: She is here for 6-month follow-up she has been feeling well with no complaints of chest pain, shortness of breath, HERNANDEZ, LE edema she had TTE 01/2023 which showed mildly dilated LA, normal LVEF, trivial mitral regurgitation. and noted moderately elevated right-sided pressures. patient denies any symptoms of shortness of breath or HERNANDEZ. discussed with patient we will get a repeat echo on follow-up and she continues to have elevated right-sided pressures we may consider referral to pulmonary to evaluate for pulmonary hypertension 12/2022 HPI: Sharri Cooney is a 72 y.o. year old with past medical history of A-fib RVR and was on amiodarone but no longer has, hypertension, dyslipidemia, Mitral valve regurgitation was noted to be mild on echo 03/2021 Patient here for 6-month follow-up but was last seen 02/2022 She continues take metoprolol succinate 50 mg daily is not any concerns or palpitations for A-fib Loop monitor was discussed previously but patient continues to not be interested She continues to take Eliquis 5 mg twice daily and tolerating well with no concerns for bleeding symptoms or signs patient was recently seen in [place] [facility] 08/2022 for palpitations. She was found to be in sinus tach with PACs which resolved with metoprolol. Her electrolytes were off and she was dehydrated. She had a 7-day Holter monitor per Dr. Peterson which did not reveal evidence of A-fib or arrhythmia patient has not had any episodes since her ER visit she denies chest pain, shortness of breath, palpitations, lightness, dizziness, fatigue 08/[address] [facility]- appears to be sinus tach with PACs, although it is questionable 02/24/2021 shows sinus rhythm with normal intervals 02/23/2021 shows atrial fibrillation 02/24/2020 1 repeat 1 at 5:48 PM shows sinus rhythm Holter monitor that was performed from 02/24/2021 to 02/27/2021 revealed occasional PACs and PVCs but no evidence of atrial fibrillation. Past medical history: Hypertension, palpitations Social history: Drinks alcohol infrequently, no significant caffeine intake, no zvro-hds-qkrhtql decongestions Family history: Her mother of a brain aneurysm, no history of premature coronary artery disease, no history of arrhythmias Medications: Eliquis 5 mg p.o. twice daily, lisinopril 10/hydrochlorothiazide 12.5 mg daily, Toprol-XL 50 mg daily, Zocor 10 mg daily 03/03/[address] Mehdi estevez?c; Afib H?PI: 71-year-old woman with HTN was Dx with Afib with RVR in the past. She converted to SR and was placed on Amio. She has had no further palpitations since then. She was initially placed on Amio for a short while and then stopped. She is doing well and has no other issues. 02/24/2021 shows sinus rhythm with normal intervals 02/23/2021 shows atrial fibrillation 02/24/2020 1 repeat 1 at 5:48 PM shows sinus rhythm Holter monitor that was performed from 02/24/2021 to 02/27/2021 revealed occasional PACs and PVCs but no evidence of atrial fibrillation. Past medical history: Hypertension, palpitations Social history: Drinks alcohol infrequently, no significant caffeine intake, no yuwo-ayu-zskfqqq decongestions Family history: Her mother of a brain aneurysm, no history of premature coronary artery disease, no history of arrhythmias Medications: Eliquis 5 mg p.o. twice daily, lisinopril 10/hydrochlorothiazide 12.51 mg daily, Toprol-XL 50 mg daily, Zocor 10 mg daily Investigations: Pulmonary function test 06/03/2021: Normal spirometry, total lung capacity, and diffusion capacity. Clinical correlation required. Echocardiogram 03/12/2021: Global left ventricular systolic function is normal, ejection fraction 55 to 60%. Diastolic function is indeterminate. The right ventricle is normal in size and systolic function. Mild mitral regurgitation. PMH: No past medical history on file. PSH: No past surgical history on file. SH: Social Determinants of Health Tobacco Use: Low Risk (12/30/2022) Patient History Smoking Tobacco Use: Never Smokeless Tobacco Use: Never Passive Exposure: Not on file Alcohol Use: Not on file Financial Resource Strain: Not on file Food Insecurity: Not on file Transportation Needs: Not on file Physical Activity: Not on file Stress: Not on file Social Connections: Not on file Intimate Partner Violence: Not on file Depression: Not on file Housing Stability: Not on file Allergies: Allergies Allergen Reactions Sulfa (Sulfonamide Antibiotics) Weight: 58.5kg Visit Vitals Ht 1.524 m (5') Wt 58.5 kg (129 lb) BMI 25.19 kg/m??? Smoking Status Never BSA 1.57 m??? Meds: Current Outpatient Medications on File Prior to Visit Medication Sig Dispense Refill apixaban (Eliquis) 5 m (more content not included)... [facility] Progress note 06-04-2023 Note Date & Type Note Facility 06-04-2023 Note Patient here for 6 m o follow up PAF, mitral valve regurgitation, and hypertension. She had an echo in January 2023. Says her BP has been running around 150/90, as she is always high strung this time of year . Denies chest pain, SOB, palpitations, lightheadedness, and bleeding on Eliquis. Review of Systems All other systems reviewed and are negative. [facility] Evaluation note 04-22-2023 Note Date & Type Note Facility 04-22-2023 Evaluation note Encounter Date Diagnosis Assessment Notes Apr, Upper respiratory tract infection, unspecified type (ICD-10 - J06.9) Apr, COVID-19 virus infection (ICD-10 - U07.1) I feel the risk is not worth the benefit of taking the patient off her anticoagulant for paxlovid as she is well appearing, in no acute distress, not hypoxic, or tachycardic, and that she has been vaccinated 3 times for covid. Will instead prescribe molnupiravir. Dicussed the risks vs benefits of medicine, she agrees. Given return precautions. Pt has called multiple pharmacies and she states, nobody seems to have molnupiravir in stock. Will prescribe azithromycin instead. Apr, Contact with and (suspected) exposure to covid-19 (ICD-10 - Z20.822) Apr, Other Drink plenty of fluids and get plenty of rest. If symptoms worsen or do not improve in 3-5 days, return to urgent care if you can not get in to see your pcp. Take tylenol as needed. [employer] Other Progress note 12-30-2022 Note Date & Type Note Facility 12-30-2022 Note - history of mild re gurgitation from echo 2020 - we will repeat echocardiogram to assess valvular regurgitation and LA size [facility] Progress note 12-30-2022 Note Date & Type Note Facility 12-30-2022 Note - elevated today, sh e states this normally low - we will have her check her blood pressure 2-3 times a day for 1 week and send clinic the readings - continue Toprol-XL 50 mg daily, Zocor 10 mg daily, lisinopril-hydrochlorothiazide 10-12.5 mg daily [facility] Progress note 12-30-2022 Note Date & Type Note Facility 12-30-2022 Note -History of paroxysm al A-fib, recent ER visit does not look like she had A-fib - continue Eliquis 5 mg twice daily - [id number] at least 3 for age, gender, hypertension - continue metoprolol XL 50 mg daily - in the past she was on amiodarone for short-term, converted chemically and then amiodarone was discontinued - recent ER visit she had elevated TSH [facility] Progress note 12-30-2022 Note Date & Type Note Facility 12-30-2022 Note [facility] Consult Note Reason for visit: 10 month follow up HPI: Sharri Cooney is a 72 y.o. year old with past medical history of A-fib RVR and was on amiodarone but no longer has, hypertension, dyslipidemia, Mitral valve regurgitation was noted to be mild on echo 03/2021 Patient here for 6-month follow-up but was last seen 02/2022 She continues take metoprolol succinate 50 mg daily is not any concerns or palpitations for A-fib Loop monitor was discussed previously but patient continues to not be interested She continues to take Eliquis 5 mg twice daily and tolerating well with no concerns for bleeding symptoms or signs patient was recently seen in [place] [facility] 08/2022 for palpitations. She was found to be in sinus tach with PACs which resolved with metoprolol. Her electrolytes were off and she was dehydrated. She had a 7-day Holter monitor per Dr. Peterson which did not reveal evidence of A-fib or arrhythmia patient has not had any episodes since her ER visit she denies chest pain, shortness of breath, palpitations, lightness, dizziness, fatigue 08/2022 ECG by [place] [facility]- appears to be sinus tach with PACs, although it is questionable 02/24/2021 shows sinus rhythm with normal intervals 02/23/2021 shows atrial fibrillation 02/24/2020 1 repeat 1 at 5:48 PM shows sinus rhythm Holter monitor that was performed from 02/24/2021 to 02/27/2021 revealed occasional PACs and PVCs but no evidence of atrial fibrillation. Past medical history: Hypertension, palpitations Social history: Drinks alcohol infrequently, no significant caffeine intake, no [id number] decongestions Family history: Her mother of a brain aneurysm, no history of premature coronary artery disease, no history of arrhythmias Medications: Eliquis 5 mg p.o. twice daily, lisinopril 10/hydrochlorothiazide 12.5 mg daily, Toprol-XL 50 mg daily, Zocor 10 mg daily 03/03/2022 per dr. Mehdi estevez?herb; Afib H?PI: 71-year-old woman with HTN was Dx with Afib with RVR in the past. She converted to SR and was placed on Amio. She has had no further palpitations since then. She was initially placed on Amio for a short while and then stopped. She is doing well and has no other issues. 02/24/2021 shows sinus rhythm with normal intervals 02/23/2021 shows atrial fibrillation 02/24/2020 1 repeat 1 at 5:48 PM shows sinus rhythm Holter monitor that was performed from 02/24/2021 to 02/27/2021 revealed occasional PACs and PVCs but no evidence of atrial fibrillation. Past medical history: Hypertension, palpitations Social history: Drinks alcohol infrequently, no significant caffeine intake, no [id number] decongestions Family history: Her mother of a brain aneurysm, no history of premature coronary artery disease, no history of arrhythmias Medications: Eliquis 5 mg p.o. twice daily, lisinopril 10/hydrochlorothiazide 12.51 mg daily, Toprol-XL 50 mg daily, Zocor 10 mg daily Investigations: Pulmonary function test 06/03/2021: Normal spirometry, total lung capacity, and diffusion capacity. Clinical correlation required. Echocardiogram 03/12/2021: Global left ventricular systolic function is normal, ejection fraction 55 to 60%. Diastolic function is indeterminate. The right ventricle is normal in size and systolic function. Mild mitral regurgitation. PMH: History reviewed. No pertinent past medical history. PSH: History reviewed. No pertinent surgical history. SH: Social Determinants of Health Tobacco Use: Low Risk (12/30/2022) Patient History Smoking Tobacco Use: Never Smokeless Tobacco Use: Never Passive Exposure: Not on file Alcohol Use: Not on file Financial Resource Strain: Not on file Food Insecurity: Not on file Transportation Needs: Not on file Physical Activity: Not on file Stress: Not on file Social Connections: Not on file Intimate Partner Violence: Not on file Depression: Not on file Housing Stability: Not on file Allergies: Allergies Allergen Reactions Sulfa (Sulfonamide Antibiotics) Weight: 58.5kg Visit Vitals BP 141/82 (BP Location: Left arm, Patient Position: Sitting, BP Cuff Size: Adult) Pulse 71 Ht 1.524 m (5') Wt 58.5 kg (129 lb) SpO2 100% BMI 25.19 kg/m??? Smoking Status Never BSA 1.57 m??? Meds: Current Outpatient Medications on File Prior to Visit Medication Sig Dispense Refill apixaban (Eliquis) 5 mg tablet Take 1 tablet by mouth in the morning and at bedtime. calcium carbonate 600 mg calcium (1,500 mg) tablet every 12 (twelve) hours. cholecalciferol, vitamin D3, 50 mcg (2,000 unit) capsule Take 1 capsule by mouth in the morning. lisinopriL-hydrochlorothiazide 10-12.5 mg tablet Take 1 tablet by mouth once daily as directed. 90 tablet 1 metoprolol succinate XL (Toprol-XL) 50 mg 24 hr tablet Take 1 tablet by mouth in (more content not included)... [facility] Progress note 12-30-2022 Note Date & Type Note Facility 12-30-2022 Note Review of Systems All other systems reviewed and are negative. [facility] History general Narrative - Reported Note Date & Type Note Facility History general Narrative - Reported Type Medical History HTN Medical History HYPERLIPIDEMIA Medical History SHINGLES Medical History GUILLAIN-BARRE SYNDROME Medical History Afib Surgical History TUBALIGATION Surgical History EYE SURGERY Surgical History MACULAR HOLE Surgical History LUMP REMOVED FROM LEFT BREAST Surgical History bunionectomy Hospitalization History 3 CHILD BIRTHS Hospitalization History GUILLAIN-BARRE SYNDROME [employer] Other Summary Purpose Family History No Family History Records FoundNo Family History Records FoundNo Family History Records Found Advance Directives No Advanced Directives Records FoundNo Advanced Directives Records FoundNo Advanced Directives Records Found Additional Source Comments INFORMATION SOURCE (unrecogn ized section and content) DATE CREATED AUTHOR 03/13/2021 Vinny Christy [facility] DATE CREATED AUTHOR AUTHOR'S ORGANIZ ATION 10/30/2022 [facility] DATE CREATED AUTHOR AUTHOR'S ORGANIZ ATION 06/06/2023 [facility] REASON FOR VISIT (unrecogniz ed section and content) cough, throat hurts when cou gh, drainage FOR RECORDS PERTAINING TO PATIENTS WHO ARE OR HAVE BEEN ENROLLED IN A CHEMICAL DEPENDENCY/SUBSTANCEABUSE PROGRAM, SOME INFORMATION MAY BE OMITTED. This clinical summary was aggregated from multiple sources. Caution should be exercised in using it in the provision of clinical care. This summary normalizes information from multiple sources, and as a consequence, information in this document may materially change the coding, format and clinical context of patient data. In addition, data may be omitted in some cases. CLINICAL DECISIONS SHOULD BE BASED ON THE PRIMARY CLINICAL RECORDS. [facility]. provides no warranty or guarantee of the accuracy or completeness of information in this document.
[2023-09-27 13:14] LABS: Free T4 1.02 ng/dL (0.76-1.46)
[2023-09-27 13:20] LABS: Alanine Aminotransferase 35 U/L (14-59); Albumin Globulin Ratio 1.1; Alkaline Phosphatase 92 U/L (46-116); Anion Gap 14.4; Aspartate Amino Transferase 33 U/L (15-37); BUN Creatinine Ratio 16.5; Bilirubin Total 0.6 mg/dL (0.2-1.0); Calcium 9.6 mg/dL (8.5-10.1); Carbon Dioxide 29.3 mmol/L (21.0-32.0); Chloride 99 mmol/L (98-107); Chol HDL Ratio 2.4; Cholesterol 169 mg/dL (<=200); Estimated GFR (African America >60 (>=60); Estimated GFR (Non-African Ame >60 (>=60); Free T3 2.89 pg/mL (2.18-3.98); Globulin 3.8 g/dL; Glucose 87 mg/dL (74-106); HDL Cholesterol 71 mg/dL (40-60); Potassium 3.7 mmol/L (3.5-5.1); Sodium 139 mmol/L (136-145); Thyroid Stimulating Hormone 3.064 uIU/mL (0.358-3.740); Total Protein 7.8 g/dL (6.4-8.2); Triglycerides 87 mg/dL (<=150); VLDL CHOLESTEROL 17.4 mg/dL
[2023-09-27 13:22] LABS: Basophils Absolute Auto 0.1 10^3/uL (0.0-0.1); Basophils Percent Auto 1.8 % (0.2-2.0); Eosinophils Absolute Auto 0.2 10^3/uL (0.0-0.7); Eosinophils Percent Auto 3.6 % (0.9-7.0); Hematocrit 42.5 % (36.0-48.0); Hemoglobin 13.8 g/dL (12.0-16.0); Immature Granulocytes Abs Auto 0.02 10^3/uL (0.00-0.03); Immature Granulocytes Pct Auto 0.5 % (0.0-0.5); Lymphocytes Percent Auto 23.5 % (20.5-60.0); Mean Corpuscular HGB Conc 32.5 g/dL (29.9-35.2); Mean Corpuscular Hemoglobin 31.2 pg (26.7-34.0); Mean Corpuscular Volume 95.9 fL (81.0-99.0); Mean Platelet Volume 9.5 fL (9.5-13.5); Monocytes Absolute Auto 0.5 10^3/uL (0.3-0.8); Monocytes Percent Auto 10.6 % (1.7-12.0); Neutrophils Absolute Auto 2.7 10^3/uL (1.4-6.5); Platelet Count 296 10^3/uL (150-450); Red Blood Count 4.43 10^6/uL (4.20-5.40); Red Cell Distribution Width 12.2 % (11.0-15.0); White Blood Count 4.4 10^3/uL (4.0-11.0)
[2023-09-27 13:49] LABS: Estimated Average Glucose 97 mg/dL
== END 2023-09-27 10:28 | disposition home or self-care (01) ==
LOC: LAB 10:29
PROVIDERS: PCP Family Medicine; Visit Provider Family Medicine
DX: R53.83 Other fatigue (principal); E78.5 Hyperlipidemia, unspecified
CPT/HCPCS: 36415; 80053; 80061; 83036; 84439; 84443; 84481; 85025

== ENCOUNTER 2023-10-26 05:08 | Emergency (ER) | payer MEDICARE, SELFPAY ==
[2023-10-26] VITALS (21 sets, daily range): BP systolic 122–163; BP diastolic 69–93; PULSE 95–126; TEMP 37.3; O2SAT 93–98; BMI 25.4
--- NOTE | 2023-10-26 05:31 | XR_ITS ---
The [address] [address] Patient Name: MADAN COONEY MRN: [id number] date: 1950 Sex: F Assigned Patient Location: ER Current Patient Location: ER Accession/Order Number: [id number] Exam Date: 10/26/2023 05:45 Report Date: 10/26/2023 06:17 At the request of: DEAN VALENZUELA Procedure: XR chest 1V EXAM: XR chest 1V HISTORY: Palpitations COMPARISON: Chest radiograph dated 08/15/2022. TECHNIQUE: One view of the chest was obtained. FINDINGS: The cardiac silhouette is normal in size. The lungs are clear. There is no significant pneumothorax or pleural effusion. No acute osseous abnormality is seen. XR/XR chest 1V IMPRESSION: 1. No acute cardiopulmonary abnormality. Electronically authenticated by: Isael CUMMINS Date: 10/26/2023 06:17
--- NOTE | 2023-10-26 05:31 | ECG_ITS ---
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
--- NOTE | 2023-10-26 05:32 | ED.ARRPALP1 ---
HPI - Arrhythmia/Palpitations General Chief Complaint: Arrhythmia/Palpitations Stated Complaint: heart palpitations Time Seen by Provider: 10/26/23 05:27 Source: patient Mode of arrival: walk-in History of Present Illness HPI narrative: 73-year-old female presents for palpitations. She has been having this since midnight, about 5 and half hours ago. She feels like her heart is racing and irregular. She is not dizzy or lightheaded and has had no syncope. No fever or cough or shortness of breath. Related Data Home Medications ?Medication ?Instructions ?Recorded ?Confirmed apixaban 5 mg tablet (Eliquis) 5 mg PO BID 10/26/23 10/26/23 ascorbic acid (vitamin C) 500 mg 500 mg PO DAILY 10/26/23 10/26/23 tablet (Vitamin C) calcium carbonate 600 mg-vitamin 1 cap PO BID 10/26/23 10/26/23 D3 5 mcg (200 unit) capsule (Calcium 600 + D(3)) lisinopril 10 1 tab PO DAILY 10/26/23 10/26/23 mg-hydrochlorothiazide 12.5 mg tablet metoprolol succinate 50 mg 50 mg PO DAILY 10/26/23 10/26/23 tablet,extended release 24 hr potassium chloride 10 mEq 10 meq PO DAILY 10/26/23 10/26/23 tablet,extended release simvastatin 10 mg tablet 10 mg PO DAILY 10/26/23 10/26/23 Allergies Allergy/AdvReac Type Severity Reaction Status Date / Time Sulfa (Sulfonamide Allergy Flushing Verified 10/26/23 05:20 Antibiotics) Review of Systems ROS Narrative A ten point review of systems is negative except as noted above. Exam Narrative Exam Narrative: Nurses note and vital signs reviewed and patient is not hypoxic. General: The patient appears well and in no apparent distress. Patient is resting comfortably on cart. Skin: Warm, dry, no pallor noted. There is no rash noted. Head: Normocephalic, atraumatic Eye: Normal conjunctiva, no drainage Ears, Nose, Mouth, and Throat: oral mucosa is moist. Nares patent. Cardiovascular: Generally regular, occasional early beats Respiratory: Patient is in no distress, no accessory muscle use, lungs are clear to auscultation, no wheezing, rales or rhonchi Back: non-tender GI: Soft and nontender Musculoskeletal: The patient has no evidence of calf tenderness, no pitting edema, symmetrical pulses noted bilaterally Neurological: A&O, normal speech Psychiatric: Cooperative Constitutional Vital Signs, click to edit/add: Last Vital Signs Temp 99.1 F 10/26/23 05:12 Pulse 110 H 10/26/23 06:40 Resp 34 H 10/26/23 06:40 BP 122/93 H 10/26/23 06:31 Pulse Ox 96 10/26/23 06:40 O2 Del Method Room Air 10/26/23 05:12 Course Vital Signs Vital signs: Vital Signs Temperature 99.1 F 10/26/23 05:12 Pulse Rate 122 H 10/26/23 05:12 Respiratory Rate 18 10/26/23 05:12 Blood Pressure 163/83 H 10/26/23 05:12 Pulse Oximetry 97 10/26/23 05:12 Oxygen Delivery Method Room Air 10/26/23 05:12 Temperature 99.1 F 10/26/23 05:12 Pulse Rate 110 H 10/26/23 06:40 Respiratory Rate 34 H 10/26/23 06:40 Blood Pressure 122/93 H 10/26/23 06:31 Pulse Oximetry 96 10/26/23 06:40 Oxygen Delivery Method Room Air 10/26/23 05:12 MDM - Arrhythmia/Palpitations MDM Narrative Medical decision making narrative: The patient has palpitations as a symptom. She is in sinus rhythm with PACs. Initial troponin is negative. Repeat is ordered and pending and the patient is signed out to Dr. Osorio. Differential Diagnosis Differential diagnosis: Likely palpitations, artial fibrillation, artial flutter, ventricular premature beats and other (PACs) Lab Data Labs: Lab Results 10/26/23 Range/Units 05:25 WBC 8.3 (4.0-11.0) 10^3/uL RBC 4.47 (4.20-5.40) 10^6/uL Hgb 13.8 (12.0-16.0) g/dL Hct 41.5 (36.0-48.0) % MCV 92.8 (81.0-99.0) fL MCH 30.9 (26.7-34.0) pg MCHC 33.3 (29.9-35.2) g/dL RDW 12.6 (11.0-15.0) % Plt Count 302 (150-450) 10^3/uL MPV 9.1 L (9.5-13.5) fL Neut % (Auto) 69.0 (43.0-75.0) % Lymph % (Auto) 15.5 L (20.5-60.0) % [place] % (Auto) 13.3 H (1.7-12.0) % Eos % (Auto) 1.0 (0.9-7.0) % Baso % (Auto) 0.8 (0.2-2.0) % Neut # (Auto) 5.8 (1.4-6.5) 10^3/uL Lymph # (Auto) 1.3 (1.2-3.8) 10^3/uL [place] # (Auto) 1.1 H (0.3-0.8) 10^3/uL Eos # (Auto) 0.1 (0.0-0.7) 10^3/uL Baso # (Auto) 0.1 (0.0-0.1) 10^3/uL Abs Immat Gran (auto) 0.03 (0.00-0.03) 10^3/uL Imm/Tot Granulo (auto) 0.4 (0.0-0.5) % Sodium 135 L (136-145) mmol/L Potassium 3.4 L (3.5-5.1) mmol/L Chloride 97 L (98-107) mmol/L Carbon Dioxide 26.1 (21.0-32.0) mmol/L Anion Gap 15.3 BUN 13.0 (7.0-18.0) mg/dL Creatinine 0.89 (0.55-1.02) mg/dL Est GFR ( Amer) >60 (>=60) Est GFR (Non-Af Amer) >60 (>=60) BUN/Creatinine Ratio 14.6 Glucose 112 H (74-106) mg/dL Calcium 9.7 (8.5-10.1) mg/dL Magnesium 1.7 L (1.8-2.4) mg/dL Troponin I High Sens 5.2 (4.0-51.3) pg/mL ECG Data Attestation: I personally reviewed and interpreted this ECG as follows: (EKG on my interpretation shows sinus rhythm with PACs) Discharge Plan Discharge Patient Disposition: Still a Patient
--- OUTSIDE RECORDS SUMMARY | 2023-10-26 05:35 | XMS_ITS | CCD ---
Author Organization [employer] Care Team Providers Care Avionics Supervisor Name Role Phone DIONY ., DR DOBBS [...] Unavailable HOY ., DR DOBBS Attending Unavailable ROMBAUER, DR RAFIQ Chi Consulting Unavailable LEAH SEALS Consulting Unavailable LEAH SEALS Attending Unavailable LEAH SEALS Admitting Unavailable HOY ., DR DOBBS Primary Care Unavailable LEAH SEALS Consulting Unavailable LEAH SEALS Attending Unavailable LEAH SEALS Admitting Unavailable HOY ., DR DOBBS Primary Care Unavailable HOY ., DR DOBBS Consulting Unavailable HOY ., DR DOBBS Attending Unavailable HOY ., DR RINKU Patricia Unavailable HOY ., DR DOBBS Primary Care Unavailable RAFIQ SEALS Unavailable MYRA LEUNG Attending Unavailable MYRA LEUNG Admitting Unavailable DIONY ., DR DOBBS Primary Care Unavailable MYRA LEUNG Consulting Unavailable Broderick Solomon Unavailable AKTE BRODERICK Attending Unavailable KATE BRODERICK Attending Unavailable Allergies Allergy Classification Reported Allergen(s) Allergy Type Date of Onset Reaction(s) Facility (1 source) Sulfonamides (Antibiotic) Drug allergy (disorder) 09-01-19 21 [facility] Repository (1 source) Sulfamethoxazole / Trimethoprim Drug Allergy NAILS TURNED PURPLE [facility] Other (1 source) Sulfonamides (Antibiotic); 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: [SULFA (SULFONAMIDE ANTIBIOTICS)] Propensity to adverse reactions to drug (disorder) 12-03-19 [facility] Repository Medications Current Medications Medication Drug Class(es) [...] Onset: 08-25-2022 Chronic Other aftercare (1 source) senior living (current) use of anticoagulants; 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: [HALF-WAY CURRNT USE ANTICOAGULANTS] Onset: 08-18-2022 Episodic Other aftercare (1 source) 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; 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: [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 DRUG THERAPY] Onset: 08-18-2022 Episodic Other [...] Range Facility Office Visiton 06-04-2023 Follow-up visit [id number] Sharri Cooney 1950 F Date Provider Department Center 06/04/2023 KATE WHITTEN [facility] No family history on file Level of Service:29937 MD OFFICE/OUTPATIENT ESTABLISHED MOD MDM 30-39 MIN Normal [facility] COVID/FLU RT-PCRon 3 SARS-CoV-2 (COVID-19) RNA VERONICA+probe Ql (Unsp spec) Positive [facility] Other COVID/FLU RT-PCR Negative ipvive Other Office Visiton 12-30-2022 Follow-up visit [id number] Sharri Cooney 1950 F Date Provider Department Center 12/30/2022 [facility] family history on file Level of Service:83706 MD OFFICE/OUTPATIENT ESTABLISHED MOD MDM 30-39 MIN Reason for Visit and Comments: Follow-up [904050] - Yearly visit- ER sodium mag and potassium low. Wasn't admitted just in ER. No issues since being out Normal [facility] SGOTon 10-23-2022 AST [Catalytic activity/Vol] 45 U/L Critically high 15-37 [facility] Comment on above: Performed By: #### A LT, AST #### [facility] [address] [place] [address] Dr. Fred Jackson SGPTon 10-23-2022 ALT [Catalytic activity/Vol] 48 U/L Normal 14-59 [facility] Comment on above: Performed By: #### A LT, AST #### [facility] [address] [place] [address] Dr. Fred Jackson SGOTon 09-10-2022 AST [Catalytic activity/Vol] 40 U/L Critically high 15-37 [facility] Comment on above: Performed By: #### A LT, AST #### [facility] [address] [place] [address] Dr. Fred Jackson PTon 09-10-2022 ALT [Catalytic activity/Vol] 52 U/L Normal 14-59 [facility] Comment on above: Performed By: #### A LT, AST #### [facility] [address] [place] [address] Dr. Fred Jackson XR DEXA BONE DENSITYon 08-25 XR DEXA BONE DENSITY DEXA Bone Density Study CLINICAL: Evaluate bone mineral density. Postmenopausal COMPARISON: FINDINGS: The bone density study was assessed by dual-energy x-ray absorptiometry with the [employer] scanner. The test results are expressed in [...] RAFIQ SEALS Date: 2022-08-25 09:50 Normal [facility] BNPon 08-16-2022 Natriuretic peptide B (Bld) [Mass/Vol] 87.0 pg/mL Normal <=900.0 [facility] Comment on above: Performed By: #### T SH, CMP, BNP, CMADM ####[facility] [address] [place], [place] [address]MtCaroline Fred Jackson CARDIAC JASSI ADMITon 023 CK [Catalytic activity/Vol] 152 U/L Normal 26-192 [facility] Comment on above: Performed By: #### T SH, CMP, BNP, CMADM ####[facility] [address] [place] [id number]. Fred Jackson CK.MB [Mass/Vol] 2.96 ng/mL Normal <=3.60 [facility] Comment on above: Performed By: #### T SH, CMP, BNP, CMADM ####[facility] [address] [place] [address]Dr. Fred Jackson HSTROP 6.1 pg/mL Normal 4.0-51.3 [facility] Comment on above: Result Comment: CUT- OFF POINTS HAVE BEEN ESTABLISHED BASED ON THE FOURTH UNIVERSAL DEFINITIONS OF MYOCARDIAL INFARCTION. THE UPPER REFERENCE LIMIT (URL) OF TROPONIN, DEFINED THE 99TH PERCENTILE OF cTnI DISTRIBUTION IN A REFERENCE POPULATION, HAS BEEN CONFIRMED THE DECISION THRESHOLD FOR [place] DIAGNOSIS. Performed By: #### T SH, CMP, BNP, CMADM ####[facility] [address] [place] [address]Dr. Fred Jackson ANGELI 80 ng/mL Normal 9-82 [facility] Comment on above: Performed By: #### T SH, CMP, BNP, CMADM ####[facility] [address] [place] [address]Dr. Fred Jackson CBC AUTO DIFFon 08-16-2022 BASO # 0.1 103/ul Normal 0.0-0.1 [facility] Comment on above: Performed By: #### C BC #### [facility] [address] [place] [address] Dr. Fred Jackson Basophils/100 WBC (Bld) 1.4 % Normal 0.2-2.0 [facility] Comment on above: Performed By: #### C BC #### [facility] [address] [place] [address] [address] Fred Jackson EO # 0.3 103/ul Normal 0.0-0.7 [facility] Comment on above: Performed By: #### C BC #### [facility] [address] [place] [address] Dr. Fred Jackson Eosinophils/100 WBC (Bld) 3.1 % Normal 0.9-7.0 [facility] Comment on above: Performed By: #### C BC #### [facility] [address] [place] [address] [address] Fred Jackson Erythrocyte distribution width (RBC) [Ratio] 12.0 % Normal 11.0-15.0 [facility] Comment on above: Performed By: #### C BC #### [facility] [address] [place] [address] [address] Fred Jackson Hematocrit (Bld) [Volume fraction] 40.5 % Normal 36.0-48.0 [facility] Comment on above: Performed By: #### C BC #### [facility] [address] [place] [address] [address] Fred Jackson Hemoglobin (Bld) [Mass/Vol] 13.8 g/dL Normal 12.0-16.0 [facility] Comment on above: Performed By: #### C BC #### [facility] [address] [place] [address] Dr. Fred Jackson IG # 0.06 10e3/ul Critically high 0.00-0.03 [facility] Comment on above: Performed By: #### C BC #### [facility] [address] [place] [address] [address] Fred Jackson IG % 0.6 % Critically high 0.0-0.[address] [facility] Comment on above: Performed By: #### C BC #### [facility] [address] [place] [address] Dr. Fred Jackson LYMPH # 3.8 103/ul Normal 1.2-3.8 [facility] Comment on above: Performed By: #### C BC #### [facility] [address] [place] [address] Dr. Fred Jackson Lymphocytes/100 WBC (Bld) 36.6 % Normal 20.5-60.0 [facility] Comment on above: Performed By: #### C BC #### [facility] [address] [place] [address] [address] Fred Jackson MANUAL DIFF REQ NO Normal [facility] Comment on above: Performed By: #### C BC #### [facility] [address] [place] [address] Dr. Fred Jackson MCH (RBC) [Entitic mass] 31.2 pg Normal 26.7-34.0 [facility] Comment on above: Performed By: #### C BC #### [facility] [address] [place] [address] Dr. Fred Jackson MCHC (RBC) [Mass/Vol] 34.1 g/dL Normal 29.9-35.2 [facility] Comment on above: Performed By: #### C BC #### [facility] [address] [place] [address] Dr. Fred Jackson MCV (RBC) [Entitic vol] 91.6 fL Normal 81.0-99.0 [facility] Comment on above: Performed By: #### C BC #### [facility] [address] [place] [address] Dr. Fred Jackson MONO # 1.2 103/ul Critically high 0.3-0.[address] [facility] Comment on above: Performed By: #### C BC #### [facility] [address] [place] [address] Dr. Fred Jackson Monocytes/100 WBC (Bld) 11.3 % Normal 1.7-12.0 [facility] Comment on above: Performed By: #### C BC #### [facility] [address] [place] [address] Dr. Fred Jackson NEUT # 4.9 103/ul Normal 1.4-6.5 [facility] Comment on above: Performed By: #### C BC #### [facility] [address] [place] [address] Dr. Fred Jackson Neutrophils/100 WBC (Bld) 47.0 % Normal 43.0-75.0 [facility] Comment on above: Performed By: #### C BC #### [facility] [address] [place] [address] Dr. Fred Jackson Platelet mean volume (Bld) [Entitic vol] 8.9 fL Critically low 9.5-13.5 [facility] Comment on above: Performed By: #### C BC #### [facility] [address] [place] [address] [address] Fred Jackson PLT 404 103/ul Normal 150-450 [facility] Comment on above: Performed By: #### C BC #### [facility] [address] [place] [address] [address] Fred Jackson RBC 4.42 106/ul Normal 4.20-5.40 [facility] Comment on above: Performed By: #### C BC #### [facility] [address] [place] [address] [address] Fred Jackson WBC 10.3 103/ul Normal 4.0-11.0 [facility] Comment on above: Performed By: #### C BC #### [facility] [address] [place] [address] [address] Fred Jackson PROF 14(COMP METB)on 023 Albumin [Mass/Vol] 4.3 g/dL Normal 3.4-5.0 [facility] Comment on above: Performed By: #### T SH, CMP, BNP, CMADM ####[facility] [address] [place] [address]DrCaroline Jackson Albumin/Globulin [Mass ratio] 1.2 {ratio} Normal [facility] Comment on above: Performed By: #### T SH, CMP, BNP, CMADM ####[facility] [address] [place] [address]DrCaroline Jackson ALP [Catalytic activity/Vol] 96 U/L Normal 46-116 [facility] Comment on above: Performed By: #### T SH, CMP, BNP, CMADM ####[facility] [address] [place] [id number] Jackson ALT [Catalytic activity/Vol] 34 U/L Normal 14-59 [facility] Comment on above: Performed By: #### T SH, CMP, BNP, CMADM ####[facility] [address] [place] [address]DrCaroline Jackson Anion gap [Moles/Vol] 16.6 mmol/L Normal [facility] Comment on above: Performed By: #### T SH, CMP, BNP, CMADM ####[facility] [address] [place] [address]Dr. Fred Jackson AST [Catalytic activity/Vol] 39 U/L Critically high 15-37 [facility] Comment on above: Performed By: #### T SH, CMP, BNP, CMADM ####[facility] [address] [place] [address]Dr. Fred Jackson Bilirubin [Mass/Vol] 0.8 mg/dL Normal 0.2-1.0 [facility] Comment on above: Performed By: #### T SH, CMP, BNP, CMADM ####[facility] [address] [place], [place] [address]Dr. Fred Jackson Calcium [Mass/Vol] 10.1 mg/dL Normal 8.5-10.1 [facility] Comment on above: Performed By: #### T SH, CMP, BNP, CMADM ####[facility] [address] [place], [place] [address]Dr. Fred Jackson Chloride [Moles/Vol] 91 mmol/L Critically low 98-107 [facility] Comment on above: Performed By: #### T SH, CMP, BNP, CMADM ####[facility] [address] [place], [place] [address]Dr. Fred Jackson CO2 [Moles/Vol] 25.5 mmol/L Normal 21.0-32.0 [facility] Comment on above: Performed By: #### T SH, CMP, BNP, CMADM ####[facility] [address] [place], [place] [address]Dr. Fred Jackson Creatinine [Mass/Vol] 0.95 mg/dL Normal 0.55-1.02 [facility] Comment on above: Performed By: #### T SH, CMP, BNP, CMADM ####[facility] [address] [place] [address]Dr. Fred Jackson EGFR-AF INDIAN >60 Normal >=60 [facility] Comment on above: Performed By: #### T SH, CMP, BNP, CMADM ####[facility] [address] [place] [address]Dr. Fred Jackson EGFR-NON AF INDIAN 58 mL/min/1.73m2 Critically low >=60 [facility] Comment on above: Performed By: #### T SH, CMP, BNP, CMADM ####[facility] [address] [place] [address]Dr. Fred Jackson Globulin (S) [Mass/Vol] 3.6 g/dL Normal [facility] Comment on above: Performed By: #### T SH, CMP, BNP, CMADM ####[facility] [address] [place] [address]Dr. Fred Jackson Glucose [Mass/Vol] 116 mg/dL Critically high 74-106 [facility] Comment on above: Performed By: #### T SH, CMP, BNP, CMADM ####[facility] [address] [place] [address]Dr. Fred Jackson Potassium [Moles/Vol] 3.1 mmol/L Critically low 3.5-5.1 [facility] Comment on above: Performed By: #### T SH, CMP, BNP, CMADM ####[facility] [address] [place] [address]Dr. Fred Jackson Protein [Mass/Vol] 7.9 g/dL Normal 6.4-8.2 [facility] Comment on above: Performed By: #### T SH, CMP, BNP, CMADM ####[facility] [address] [place] [address]Dr. Frde Jackson Sodium [Moles/Vol] 130 mmol/L Critically low 136-145 [facility] Comment on above: Performed By: #### T SH, CMP, BNP, CMADM ####[facility] [address] [place] [address]Dr. Fred Jackson Urea nitrogen [Mass/Vol] 17.0 mg/dL Normal 7.0-18.0 [facility] Comment on above: Performed By: #### T SH, CMP, BNP, CMADM ####[facility] [address] [place] [address]Dr. Fred Jackson Urea nitrogen/Creatinin e [Mass ratio] 17.9 mg/mg Normal [facility] Comment on above: Performed By: #### T SH, CMP, BNP, CMADM ####[facility] [address] [place] [id number]. Fred Jackson PROTIMEon 08-16-2022 INR Coag (PPP) [Relative time] 1.01 {INR} Normal [facility] Comment on above: Performed By: #### P TT, PT ####[facility] [address] [place] [address]Dr. Fred Jackson INR GUIDELINES SEE BELOW Normal [facility] Comment on above: Result Comment: DOTTY RED INR: 2.0 - 3.0 CONDITIONS NOT LISTED BELOW 2.5 - 3.5 FOR PROSTHETIC HEART VALVE REPLACEMENT 2.5 - 3.5 RECURRENT THROMBOSIS Performed By: #### P TT, PT ####[facility] [address] [place] [address]Dr. Fred Jackson PT Coag (PPP) [Time] 10.7 s Normal 9.0-11.6 [facility] Comment on above: Performed By: #### P TT, PT ####[facility] [address] [place] [address]Dr. Fred Jackson PTTon 08-16-2022 aPTT Coag (Bld) [Time] 33.9 s Normal 22.3-36.2 [facility] Comment on above: Performed By: #### P TT, PT ####[facility] [address] [place] [address]Dr. Fred Jackson TROPONIN, HIGH SENSITIVITYon 08-16-2022 HSTROP 15.1 pg/mL Normal 4.0-51.3 [facility] Comment on above: Result Comment: CUT- OFF POINTS HAVE BEEN ESTABLISHED BASED ON THE FOURTH UNIVERSAL DEFINITIONS OF MYOCARDIAL INFARCTION. THE UPPER REFERENCE LIMIT (URL) OF TROPONIN, DEFINED THE 99TH PERCENTILE OF cTnI DISTRIBUTION IN A REFERENCE POPULATION, HAS BEEN CONFIRMED THE DECISION THRESHOLD FOR [place] DIAGNOSIS. Performed By: #### H STROPN #### [facility] [address] [place], [place] [address] Dr. Fred Jackson TSHon 08-16-2022 TSH 4.364 uIU/mL Critically high 0.358-3.740 [facility] Comment on above: Performed By: #### T SH, CMP, BNP, CMADM ####[facility] [address] [place], [place] [address]EwDr. Fred Jackson XR CHEST 1 Von 08-16-2022 [...] DALI MYERS Date: 2022-08-16 00:02 Normal [facility]06 SARS-CoV-2 (COVID-19) RNA VERONICA+probe Ql (Unsp spec) Detected Critically abnormal NOT DETECTED [facility] Comment on above: Result Comment: This test is not yet approved or cleared by the [place] FDA. When there are no FDA-approved or cleared tests available, and other criteria are met, FDA can make tests available under an emergency access mechanism called an Emergency Use Authorization (EUA). The EUA for this test is supported by the Shipping Receiving Clerk of Health and Human Service's (HHS's) declaration [...] Performed By: #### C VDTBH ####[address] [place], [place] [address]Ut. Fred Jackson US CAROTID ART BILon 022 [...] by: TIFFANIE LEON Date: 2022-03-12 14:51 Normal [facility] MAMM SCREEN 3D JASMEET CADon 02-09-2022 MAMM SCREEN 3D JASMEET CAD Patient: SHARRI COONEY Exam Date: 02/09/2022 : 1950 Gender:F Ordering : DR RINKU PETERSON . Admission #: [id number] Family : Order #: [id number] CLICK HERE TO VIEW EXAM RADIOLOGY REPORT [...] prostate cancer at age 60. LOCATION: [facility] BREAST COMPOSITION: Heterogeneously dense,which may obscure small [...] Zuñiga MD on 02/09/2022 at 09:50 Normal [facility] Coding Summary.on 03-12-2021 Coding Summary. CD:[id number] Gh0bWw+PGhlYWQ+PE1FV CSoU78uxNLleI4XN9vZW V0AYCWEVTSXAX8PPA6pu CJ1SLmpK5KiutRs LykboKBfJI71RDo7MOP3 xEgvILjnhN2lyOPrW3l0 YpAyEG97eY67CKmsSAKi KrY4PeVhmcnmzDIn X1duHtNtxQUnSta+PHRh YmxlIHdpZHRoPScxMDAl SjQrxZroMW0iOl4aSXTe LWNvbGxhcHNlOiBj t1wuOKWmWLwmNV9gkCxx J3RkvCS7SDShm5b8Ca79 dHI+OPAqOZD6kOvgQBvz y209DeJdc8rpCYP4 hIEwHPvdFYH8J63kd9I2 SYIzOADxWGB1mJJ6aG6g kRdfpllqL8LjuCYwNlD7 SQD6oIDjlX2hlCdv goacuN0vAen+Z89UPE4N TFKYBW9PFjw3N5CvRveh dHI+AN41YVSnBC00pSGv zLDfn4emyWh7DyMy DCSaMVQ3tQsmPHtxk0Ge PKQqK69qkXUnn5V3PTPr nXcklNTxCnIsbPO5bE1u SAcbbhpzz8qutpbz Cayjt1dhej48jG81J22m SQopFAPjFOJ4UKBdLSOk jSqdea9ftE0yJj9+IDxj c8gdx7uvwSs8ClAi PHPbqbUeuFoeJFW3q9Tu Xo44O5RewIvlm6TiRrm5 qw97zBVqm2N3cGH6QQmc SUIkaU8eZRmjQuP4 DFCnJfPzlZ97lVVfYVcc Kr1nyHmwcBrqHS7mRPNz jxmbBVIthF9cDCGnaGLi xCojCK7pFLHzehai c120AnAbRCJ2UULpuXCr S3MyuE6cZlHrCVDxURHm N8YrdWMwOTobY214GWhc EiQ3ELDxdzGoB7Zl DDKnxTwhXaH3e2E6Ob0K j7AqgawiNCX1CZjwWQO2 GbP6DoAqVpG3D2XoHag4 BOXvaSvbEB6kO6Sr LMHkxlslcstrrPB1TOKq IHXspL67gZRuQVfzEf4k k1L5y132ASNjBUHxtX30 Pt6tsJvaANTqzEUO lZ2wdzsnk0ifdprlVtEm APXoZQd0VNw6LTMviIla TqNuSIB4MeZ4PDU6xPMs cO4grDnlzjpqeD4j Oyc+S28hmK0zRSG6GSH5 maceDWWamrYtXX58OX71 F1WcWrnsjQQdiHR+PGRp jtTjrQwsCX8uPmDo g6qgm1EdYYigH3QjDZCl GScdNza1CQIuPJO7kHI6 sN1sGGTmZKsqk7K9pSB6 H8EyhjAmys8cn2nn WKTmMIkuC45qxUAcv0U6 GQYplWU7GKPivMuyFkWt dR65Qqe+TIAlkQazz0Cx Mxiej3uri8pcsIn7 IjMwJSIgdmFsaWduPSJ0 s8ZyLt84G00dXYusRBXh QJVlDWEqPRLemJnzfl4e kM5rUc8+PGNvbCB3 uUZ8kY4oRDPaBxF7KZoa R369NtLogOJoDjwxo7vp d7unmGh6MuSrIYJnjuVj bHhkFJW3o5AfLi71 O99bLAxlNGJeMOCnGXSp UCOgxYyxva5iqT2eYx4+ JE3jb0sozh20fZ88gPQ+ QNCxDYB2qGaaXBcq YXTinL1oYXgcCeJ8NMXs IpRtjQ69hHVzSQhdAy3g eJrbrUxkHP2qAFRczolw f778WhHbk7otNWDf xGKoIPliFUJ4P95lk1R7 QBOtUYWnIEK3jGC0sN8e bGlnbjogbGVmdDsgdmVy bZbpHRguAPxtK740 IHRvcDsnPlBhdGllbnQg KsWnNRs4C0ChHkn6ZABn nEzmZU2ukSXjYTmdRw7g oQtfjYirNL2bSBVy srsjm303XzLuu4hfXVQk xLJyHHxbWPZ9X61lv6L4 YUYjQURmICA3sAP1rT6t bGlnbjogbGVmdDsg uhKrzDejQYonCKydD249 IHRvcDsnPkJpcnRoIERh rUF3ZX35ZX85xZDdq2F2 vDS3A1LeZNGfhfqp zmfbwEA5ZOAzPJYwwB66 Zk9acQqhRk6bSLUuFHP7 DIZkaTKfT7GisR1nDgCo CIHpZJNqU0YldAEj CCckR534KRlhZiR5JRWz qqUwV5KuQAUsqOurIjC0 h2J5Dg7LU4M7FD27VJ53 dCAun4X3uLP7Q8Fr VLZvhugdvmpryYU0DQKg VHEjbA94Os2xdKstIn8f WZCcTIK5HGPpfMZtA9Zd wH8pSkUtYYBwGFAy L1MigLRqJTsrW782XOti RuD3GWEfftBrN7ZfMNRp oTdrNsN3y4A9Br4OCMk3 ZQ73KO78kDKjp2C9 xXP0T0IgPLWikvsumptn pWO6MHThTQXgbL44Hl3y dFhiJu8zBAXlWAL9SKOy aKHxC1PylW6uDwHy GKSrLRXuU5FuiEFjPKlq E118ZFzlZeH1SYIespTo N6RzAMLobUamDjM9q8Q2 Pa3PBDGwLN37TOQ2 rJY2MT82AF35R0QoYrsh dGFibGU+PHRhYmxlIHdp ZHRoPScxMDAlJyBzdHls VS7hDr6cXCDxYXLl iSsvsWPxGfXma1mfVVYu AVbeSX6lcDjkP6KvxXG5 XVUtn3j4Vo16U58pR5Wq dXA+JJByhPI8fHC2 lY6sCvHcIeB1DEypO748 QuNkhYPwHmfbo3zlj9do oFl2AuG6DZSeipMsxTce MFP2b3GvRe83U37o IHdpZHRoPSIxNSUiIHZh jHaagf7maX2fYg3+PGNv kJP9xMP9rL2sSdTcMcJ6 UEhjK761DqBoyKTf Amfee3jot5zewUm0LmDz SJNvrbLxaPsxHGK6j8Kk An33N1ApqLqpt3SxKsy5 hs89fDRbt1B6sBT5 S6IiXQHsvxzukCNxrPqe ZO3xUGArbvehIZSddY1m ZJDrN7w5NtQbOpL4ZYmu S1BopwB4SEAmgIYb MCpoGDN7P56po5P7GGQl FBKtDJQ1gHI9bW4heYfu bjogbGVmdDsgdmVydGlj QPaxVWlgV509EUZk qChyPQZhgI6oHQJfxKHk iOkvFV6xRSNyfeffBlLD UlJPTEwsIFNVWkFOTkU8 E3WmMbh8DCEoqSwy SR0neROyQMwgCh8doKqw sAyoHV9wQGTaxblbUPRj rV5gYUUqkKWtjVcuAE3v YPGevbttx639FkFh TRB8QFDpwSOsD9FscC4b QxCtKOVmNATjA8LotUZg DYgpL428KXurLaL9NONu slHdM3WgLARneZdb NnN1m3W5Jp4wDc7aSE3m VSJoDV96DT83wLUoq2C2 xCI0Y1LnZOHoqpviqknb jUH0WBFcEODvvC17 yWNhPJfrDp7zu7L5j681 ZBKwCDJdtH02Sm5sbIro CWPldHONsI0gklfiu2uw cjogIzAwMDAwMDt0 PRj3IHWejSnlJcJpQRR0 LiJ5YIE5pIAiqP9soAtx pqdnaR8iIyb+NjggWWVh irP5F5FlZsg7LNFc yWxjNR9tsQCxNVvyKx3f zMizfBlvBC5aMMTrdezk DROkcO5pVPFnpLWekSoq KE9rAIHqyqfdu899 SiInTWN6VHGknJBeN1Ms zO4oXcKyPPIbHDZgX3Ww yMLmKZxgW535MIoeXqO0 TEHifrScF8FsMXCd vMpxUnD2u3J0Zf2ZFH4m bLF6M5DuOjv4MQFdfBmf DC8vzEDgHIesDg8seBmn zTwiZH3vARNxntar RRGpkT9eKIFkrRAcoLrq UE3gSXGujrecv365JyIt FRT6NJPxyHYpK7SvqJ8b OfSoQZUkLBBxK0Up yTRiVLpcO102JNuaPuR5 IJHunqZhF5BoPWLtwFor NmZ5v7C1Mw2HSNQtHWGf zPTeXpM4N1YyZols dHI+ZU56DDBoDK03fHJt dYVvf1lamOm1ByUvWBHj ILJ6gZbhXEkyd9GaJPTu X44ecYYsm8U0IRWb cUxpqSRgJpVucKI4hX0t LIvxwgrjg3ussejyXbwz g4mwcf78bP53O90xSMrr ZHRoPSIzMCUiIHZh aZcdtn8baZ8eSy6+PGNv mQA3zHC7dX1wOeWtEqC1 PJfmS226EoEmbYJgPsmx n1kak1ksgHt0BxIt UUDqowWygVuiCCX1p9Sv Rq93O74eBZjnVDPoHFKk VSWyOHZjfWycvs3qgV9z Ii8+DJ8aa9bciw12 oG40yGE+PHPaJQR1rIvw VXxwVNCphE5rSHqnHvO0 MVVlJsGyqF27rRPrAGsg Yw2nzTdyoJmqHQ9b EDUexaalf956GnCsl5mh NPLjgTFsWQdtQWF1V34w b2H0ACGuLJNcDZO6yFP1 xP4ytZvsnywnoPTd dDsgdmVydGljYWwtYWxp H308ZGCbiNtpMzFayQNd P4sivmLLJP0vVmswcGS+ XRSlCPA7jYllRQbs ZCMoqG5qJMGnI2x9IaWs HkD3MVpgT9SyqyF4CWIw iQGaMXGllESTzK5zroyj l7sqhoytPkLiULKu KJh4FJf9CYMtePdkPqEs MDZ6XaJ7CSP5rGPruP6c kSurkmvleP9kTqy+RklO OjwvdGQ+PHRkIHN0 tBslZHvePGSqfM2mGWRd I0s8DbFcBdY7CIpaY6Hw afB4DAApzNFkSNMtaJNF rN8hrqeon1emrmpj HvQvQAXxHNg3YZd1AAJg sEwbZhTwWFE6HrG4PBY4 bAEyrG6xtYwvrplhcM8u Oyc+TVJOOjwvdGQ+ ZUZeLGV6sStdIImyVMOg aP5wQTKlD8j5BuSyIaK5 WFkeE0ReypL3YIRrgZHj XCByeMZAzV0wavtw u5ndkdsrKfOmURLxYKf5 YPq4OLAdqRnrHbAdXBU6 RiL1DYS5iLGrcW9syQoa foudeK2yLfp+UGF5 HZT9AN89YW60Z6GyNawy dGFibGU+PHRhYmxlIHdp ZHRoPScxMDAlJyBzdHls JG9nHy4eGSVsVIAk bGxh (more content not included)... [facility] Physician Orderon 02-19-2021 Physician Order [id number] [facility] Vital Signs Date Time Vital Sign Value Performing Clinician Facility 04-22-2023 12:20-0400 Body height 153.67 cm Broderick Solomon Other [facility] Other 04-22-2023 12:20-0400 Body mass index (BMI) [Ratio] 24.58 kg/m2 Broderick Solomon Other [facility] Other 04-22-2023 12:20-0400 Body temperature 98.3 [degF] [facility] [facility] Other 04-22-2023 12:20-0400 Body weight 58.06 kg Broderick Solomon Other [facility] Other 04-22-2023 12:20-0400 Respiratory rate 18 /min Broderick Solomon Other [facility] Other 04-22-2023 12:20-0400 SaO2% (BldA) [Mass fraction] 96 % Broderick Solomon Other [facility] Other Encounters Encounter Date Encounter Type Care Provider Facility Start: 06-04-2023 End: 06-04-2023 [facility] Start: 04-22-2023 End: 04-22-2023 ambulatory Broderick Solomon Other [facility] Other Start: 04-22-2023 Office outpatient vi sit 15 minutes Broderick Solomon [facility] Start: 12-30-2022 End: 12-30-2022 ambulatory K[facility] Start: 10-23-2022 End: 10-24-2022 ambulatory LEAH [...] acellular pertussis vaccine, adsorbed Broderick Solomon Other [facility] Other Payers Date Payer Category Payer Medicare [id number] 1950 Unknown [id number] 2.16.84 [id number] 1950 Unknown [id number] 2.16.84 [id number] 1950 Unknown [id number] 2.16.84 [id number] 1950 Unknown [id number] 2.16.84 [id number] 1950 Unknown [id number] 2.16.84 [id number] 1950 Unknown [id number] 2.16.84 [id number] 1950 Unknown [id number] 2.16.84 [id number] Social History Date Type Detail Facility Unknown if ever smoked [facility] Other Sex Assigned At Sex Assigned At Bir th [facility] Other Progress note 06-04-2023 Note Date & [...] or signs patient was recently seen in [facility] 08/2022 for palpitations. She was found [...] palpitations, lightness, dizziness, fatigue 08/2022 ECG by [facility] appears to be sinus tach with PACs, [...] alcohol infrequently, no significant caffeine intake, no xyog-duy-ahjicag decongestions Family history: Her mother of a [...] alcohol infrequently, no significant caffeine intake, no yptb-vpn-urfckep decongestions Family history: Her mother of a [...] (Eliquis) 5 m (more content not included)... [facility] Progress note 06-04-2023 Note Date & Type [...] All other systems reviewed and are negative. [facility] Evaluation note 04-22-2023 Note Date & Type [...] see your pcp. Take tylenol as needed. [facility] Other Progress note 12-30-2022 Note Date & Type Note Facility 12-30-2022 Note - history of mild re gurgitation from echo 2020 - we will repeat echocardiogram to assess valvular regurgitation and LA size [facility] Progress note 12-30-2022 Note Date & Type Note Facility 12-30-2022 Note - elevated today, sh e states this normally low - we will have her check her blood pressure 2-3 times a day for 1 week and send clinic the readings - continue Toprol-XL 50 mg daily, Zocor 10 mg daily, lisinopril-hydrochlorothiazide 10-12.5 mg daily [facility] Progress note 12-30-2022 Note Date & Type Note Facility 12-30-2022 Note -History of paroxysm al A-fib, recent ER visit does not look like she had A-fib - continue Eliquis 5 mg twice daily - [id number] at least 3 for age, gender, hypertension - continue metoprolol XL 50 mg daily - in the past she was on amiodarone for short-term, converted chemically and then amiodarone was discontinued - recent ER visit she had elevated TSH [facility] Progress note 12-30-2022 Note Date & Type Note Facility 12-30-2022 Note [place] Electrophysiology Consult Note Reason for visit: 10 [...] or signs patient was recently seen in [facility] 08/2022 for palpitations. She was found [...] palpitations, lightness, dizziness, fatigue 08/2022 ECG by [facility]- appears to be sinus tach with [...] alcohol infrequently, no significant caffeine intake, no xirm-htu-ucbvahs decongestions Family history: Her mother of a [...] alcohol infrequently, no significant caffeine intake, no vheu-glf-hclrgvb decongestions Family history: Her mother of a [...] by mouth in (more content not included)... [facility] Progress note 12-30-2022 Note Date & Type Note Facility 12-30-2022 Note Review of Systems All other systems reviewed and are negative. [facility] History general Narrative - Reported Note Date & Type Note Facility History general Narrative - Reported Type Medical History HTN Medical History HYPERLIPIDEMIA Medical History SHINGLES Medical History GUILLAIN-BARRE SYNDROME Medical History Afib Surgical History TUBALIGATION Surgical History EYE SURGERY Surgical History MACULAR HOLE Surgical History LUMP REMOVED FROM LEFT BREAST Surgical History bunionectomy Hospitalization History 3 CHILD BIRTHS Hospitalization History GUILLAIN-BARRE SYNDROME [facility] Other Summary Purpose Family History No Family History Records FoundNo Family History Records FoundNo Family History Records Found Advance Directives No Advanced Directives Records FoundNo Advanced Directives Records FoundNo Advanced Directives Records Found Additional Source Comments INFORMATION SOURCE (unrecogn ized section and content) DATE CREATED AUTHOR 03/13/2021 Vinny Christy [facility] DATE CREATED AUTHOR AUTHOR'S ORGANIZ ATION 10/30/2022 [facility] DATE CREATED AUTHOR AUTHOR'S ORGANIZ ATION 06/06/2023 [facility] REASON FOR VISIT (unrecogniz ed section [...] BE BASED ON THE PRIMARY CLINICAL RECORDS. [facility]. provides no warranty or guarantee of the accuracy or completeness of information in this document.
[2023-10-26 05:37] LABS: Basophils Absolute Auto 0.1 10^3/uL (0.0-0.1); Basophils Percent Auto 0.8 % (0.2-2.0); Eosinophils Absolute Auto 0.1 10^3/uL (0.0-0.7); Hematocrit 41.5 % (36.0-48.0); Hemoglobin 13.8 g/dL (12.0-16.0); Immature Granulocytes Abs Auto 0.03 10^3/uL (0.00-0.03); Immature Granulocytes Pct Auto 0.4 % (0.0-0.5); Lymphocytes Absolute Auto 1.3 10^3/uL (1.2-3.8); Lymphocytes Percent Auto 15.5 % (20.5-60.0); Mean Corpuscular HGB Conc 33.3 g/dL (29.9-35.2); Mean Corpuscular Hemoglobin 30.9 pg (26.7-34.0); Mean Corpuscular Volume 92.8 fL (81.0-99.0); Mean Platelet Volume 9.1 fL (9.5-13.5); Monocytes Absolute Auto 1.1 10^3/uL (0.3-0.8); Monocytes Percent Auto 13.3 % (1.7-12.0); Neutrophils Absolute Auto 5.8 10^3/uL (1.4-6.5); Platelet Count 302 10^3/uL (150-450); Red Blood Count 4.47 10^6/uL (4.20-5.40); Red Cell Distribution Width 12.6 % (11.0-15.0); White Blood Count 8.3 10^3/uL (4.0-11.0)
[2023-10-26 06:03] LABS: Anion Gap 15.3; BUN Creatinine Ratio 14.6; Calcium 9.7 mg/dL (8.5-10.1); Carbon Dioxide 26.1 mmol/L (21.0-32.0); Chloride 97 mmol/L (98-107); Estimated GFR (African America >60 (>=60); Estimated GFR (Non-African Ame >60 (>=60); Glucose 112 mg/dL (74-106); Magnesium 1.7 mg/dL (1.8-2.4); Potassium 3.4 mmol/L (3.5-5.1); Sodium 135 mmol/L (136-145); Troponin I High Sensitivity 5.2 pg/mL (4.0-51.3)
[2023-10-26 08:03] LABS: Troponin I High Sensitivity 6.4 pg/mL (4.0-51.3)
== END 2023-10-26 08:23 | disposition home or self-care (01) ==
PROVIDERS: Emergency Medicine; Emergency Provider Emergency Medicine; PCP Family Medicine
DX: R00.2 Palpitations (principal); I48.91 Unspecified atrial fibrillation; Z79.01 Long term (current) use of anticoagulants; Z79.899 Other long term (current) drug therapy
CPT/HCPCS: 36415; 71045; 80048; 83735; 84484; 85025; 93005; 99285

== ENCOUNTER 2023-11-02 17:37 | Emergency (ER) | payer MEDICARE, SELFPAY ==
[2023-11-02 17:42] VITALS: BP 145/95; PULSE 88; TEMP 36.9; O2SAT 98; BMI 25.4
--- OUTSIDE RECORDS SUMMARY | 2023-11-02 17:49 | XMS_ITS | CCD ---
Author Organization [employer] Care Team Providers Care Load Dispatcher Name Role Phone DIONY ., DR DOBBS Primary Care Unavailable FREDY ., BRANDO Consulting Unavailable FREDY ., BRANDO Attending Unavailable FREDY ., BRANDO Admitting Unavailable DALI MYRES Consulting Unavailable EDWARD, DR TIFFANIE Ragland Consulting Unavailable CASSIE PERRY Attending Unavailable CASSIE PERRY Admitting Unavailable HOY ., DR DOBBS Primary Care Unavailable CASSIE PERRY Consulting Unavailable HOY ., DR DOBBS Admitting Unavailable HOY ., DR DOBBS Primary Care Unavailable HOY ., DR DOBBS Consulting Unavailable HOY ., DR DOBBS Attending Unavailable BRADDOCK, DR RAFIQ Chi Consulting Unavailable LEAH SEALS Consulting Unavailable LEAH SEALS Attending Unavailable LEAH SEALS Admitting Unavailable HOY ., DR DOBBS Primary Care Unavailable LEAH SEALS Consulting Unavailable LEAH SEALS Attending Unavailable LEAH SEALS Admitting Unavailable HOY ., DR DOBBS Primary Care Unavailable HOY ., DR DOBBS Consulting Unavailable HOY ., DR DOBBS Attending Unavailable HOY ., DR DOBBS Admitting Unavailable HOY ., DR DOBBS Primary Care Unavailable RAFIQ SEALS Unavailable MYRA LEUNG Attending Unavailable MYRA LEUNG Admitting Unavailable DIONY ., DR DOBBS Primary Care Unavailable MYRA LEUNG Consulting Unavailable Broderick Solomon Unavailable KATE BRODERICK Attending Unavailable PRETTY ALEMAN Attending Unavailable KATE BRODERICK Attending Unavailable Allergies Allergy Classification Reported Allergen(s) Allergy Type Date of Onset Reaction(s) Facility (1 source) Sulfonamides (Antibiotic) Drug allergy (disorder) 09-01-19 [facility] Repository (1 source) Sulfamethoxazole / Trimethoprim Drug Allergy NAILS TURNED PURPLE [employer] Other (1 source) Sulfonamides (Antibiotic); 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: [SULFA (SULFONAMIDE ANTIBIOTICS)] Propensity to adverse reactions to drug (disorder) 12-03-19 [facility] Rep[facility] Medications Current Medications Medication Drug Class(es) [...] oral tablet (1 source) Muscle Relaxant Start: take 1 tablet by mouth every eight [...] Onset: 08-25-2022 Chronic Other aftercare (1 source) 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 Also started mag oxide. Please send stress to [facility]. Please call patient and schedule her an appt with Dr. Harding at his soonest available. He said if she really wants to get in [place] with him he can see her at [place] next week while he is on Med . Thanks! [facility] Telephoneon 10-29-2023 Telephone [id number] Sharri Cooney 1950 F Date Provider Department Center 10/29/2023 PRETTY GALLAGHER [facility]. No family history on file Normal [facility] Office Visiton 10-28-2023 Follow-up visit [id number] Sharri Cooney 1950 F Date Provider Department Center 10/28/2023 PRETTY GALLAGHER [facility] No family history on file Level of Service:29205 [place] OFFICE/OUTPATIENT ESTABLISHED MOD MDM 30 MIN Reason for Visit and Comments: Atrial Fibrillation [80] Palpitations [172231] Normal [facility] Office Visiton 06-04-2023 Follow-up visit [id number] Sharri Cooney 1950 F Date Provider Department Center 06/04/2023 [facility] No family history on file Level of Service:96395 [place] OFFICE/OUTPATIENT ESTABLISHED MOD MDM 30-39 MIN Normal [facility] COVID/FLU RT-PCRon 3 SARS-CoV-2 (COVID-19) RNA VERONICA+probe Ql (Unsp spec) Positive [employer] [facility] Other COVID/FLU RT-PCR Negative [facility] Other Office Visiton 12-30-2022 Follow-up visit [id number] Sharri Cooney Reji 1950 F Date Provider Department Center 12/30/2022 [facility] No family history on file Level of Service:48406 [place] OFFICE/OUTPATIENT ESTABLISHED MOD MDM 30-39 MIN Reason for Visit and Comments: Follow-up [455551] - Yearly visit- ER sodium mag and potassium low. Wasn't admitted just in ER. No issues since being out Normal [facility] SGOTon 10-23-2022 AST [Catalytic activity/Vol] 45 U/L Critically high 15-37 [facility] Comment on above: Performed By: #### A LT, AST #### [facility] [address] [place] [address] Dr. Fred Jackson [facility] 10-23-2022 ALT [Catalytic activity/Vol] 48 U/L Normal [facility] Comment on above: Performed By: #### A LT, AST #### [facility] [address] [place] [address] Dr. Fred Jackson [facility] 09-10-2022 AST [Catalytic activity/Vol] 40 U/L Critically high 15-37 [facility] Comment on above: Performed By: #### A LT, AST #### [facility] [address] [place] [address] Dr. Fred Jackson [facility] 09-10-2022 ALT [Catalytic activity/Vol] 52 U/L Normal [facility] Comment on above: Performed By: #### A LT, AST #### [facility] [address] [address] [address] Fred Jackson XR DEXA BONE DENSITYon 08-25 XR DEXA BONE DENSITY DEXA Bone Density Study CLINICAL: Evaluate bone mineral density. Postmenopausal COMPARISON: FINDINGS: The bone density study was assessed by dual-energy x-ray absorptiometry with the DGSE scanner. The test results are expressed in [...] RAFIQ SEALS Date: 2022-08-25 09:50 Normal [facility] BNPon 08-16-2022 Natriuretic peptide B (Bld) [Mass/Vol] 87.0 pg/mL Normal <=900.0 [facility] Comment on above: Performed By: #### T SH, CMP, BNP, CMADM ####[facility] [address] [address]Dr. Fred Jackson CARDIAC JASSI ADMITon 023 CK [Catalytic activity/Vol] 152 U/L Normal 26-192 [facility] Comment on above: Performed By: #### T SH, CMP, BNP, CMADM ####[facility] [address] [address]DrCaroline Jackson CK.MB [Mass/Vol] 2.96 ng/mL Normal <=3.60 [facility] Comment on above: Performed By: #### T SH, CMP, BNP, CMADM ####[facility] [address] [address]Dr. Fred Jackson HSTROP 6.1 pg/mL Normal 4.0-51.3 [facility] Comment on above: Result Comment: CUT- OFF POINTS HAVE BEEN ESTABLISHED BASED ON THE FOURTH UNIVERSAL DEFINITIONS OF MYOCARDIAL INFARCTION. THE UPPER REFERENCE LIMIT (URL) OF TROPONIN, DEFINED THE 99TH PERCENTILE OF cTnI DISTRIBUTION IN A REFERENCE POPULATION, HAS BEEN CONFIRMED THE DECISION THRESHOLD FOR [place] DIAGNOSIS. Performed By: #### T SH, CMP, BNP, CMADM ####[facility] [address] [address]DrCaroline Jackson ANGELI 80 ng/mL Normal 9-82 [facility] Comment on above: Performed By: #### T SH, CMP, BNP, CMADM ####[facility] [address] [id number]. Fred Jackson CBC AUTO DIFFon 08-16-2022 BASO # 0.1 103/ul Normal 0.0-0.1 [facility] Comment on above: Performed By: #### C BC #### [facility] [address] [address] [address] Fred Jackson Basophils/100 WBC (Bld) 1.4 % Normal 0.2-2.0 [facility] Comment on above: Performed By: #### C BC #### [facility] [address] [place] [address] Dr. Fred Jackson EO # 0.3 103/ul Normal 0.0-0.7 [facility] Comment on above: Performed By: #### C BC #### [facility] [address] [address] [address] Fred Jackson Eosinophils/100 WBC (Bld) 3.1 % Normal 0.9-7.0 [facility] Comment on above: Performed By: #### C BC #### [facility] [address] [place] [address] Dr. Fred Jackson Erythrocyte distribution width (RBC) [Ratio] 12.0 % Normal 11.0-15.0 [facility] Comment on above: Performed By: #### C BC #### [facility] [address] [place] [address] Dr. Fred Jackson Hematocrit (Bld) [Volume fraction] 40.5 % Normal 36.0-48.0 [facility] Comment on above: Performed By: #### C BC #### [facility] [address] [place] [address] Dr. Fred Jackson Hemoglobin (Bld) [Mass/Vol] 13.8 g/dL Normal 12.0-16.0 [facility] Comment on above: Performed By: #### C BC #### [facility] [address] [place] [address] Dr. Fred Jackson IG # 0.06 10e3/ul Critically high 0.00-0.03 [facility] Comment on above: Performed By: #### C BC #### [facility] [address] [place] [address] Dr. Fred Jackson IG % 0.6 % Critically high 0.0-0.5 [facility] Comment on above: Performed By: #### C BC #### [facility] [address] [place] [address] Dr. Fred Jackson LYMPH # 3.8 103/ul Normal 1.2-3.8 [facility] Comment on above: Performed By: #### C BC #### [facility] [address] [place] [address] Dr. Fred Jackson Lymphocytes/100 WBC (Bld) 36.6 % Normal 20.5-60.0 [facility] Comment on above: Performed By: #### C BC #### [facility] [address] [place] [address] Dr. Fred Jackson MANUAL DIFF REQ NO Normal [facility] Comment on above: Performed By: #### C BC #### [facility] [address] [place] [address] Dr. Fred Jackson MCH (RBC) [Entitic mass] 31.2 pg Normal 26.7-34.0 [facility] Comment on above: Performed By: #### C BC #### [facility] [address] [place] [address] Dr. Fred Jackson MCHC (RBC) [Mass/Vol] 34.1 g/dL Normal 29.9-35.2 [facility] Comment on above: Performed By: #### C BC #### [facility] [address] [place] [address] Dr. Fred Jackson MCV (RBC) [Entitic vol] 91.6 fL Normal 81.0-99.0 [facility] Comment on above: Performed By: #### C BC #### [facility] [address] [place] [address] Dr. Fred Jackson MONO # 1.2 103/ul Critically high 0.3-0.8 [facility] Comment on above: Performed By: #### C BC #### [facility] [address] [place] [address] Dr. Fred Jackson Monocytes/100 WBC (Bld) 11.3 % Normal 1.7-12.0 [facility] Comment on above: Performed By: #### C BC #### [facility] [address] [place] [address] Dr. Fred Jackson NEUT # 4.9 103/ul Normal 1.4-6.5 [facility] Comment on above: Performed By: #### C BC #### [facility] [address] [place] [address] Dr. Fred Jackson Neutrophils/100 WBC (Bld) 47.0 % Normal 43.0-75.0 [facility] Comment on above: Performed By: #### C BC #### [facility] [address] [place] [address] Dr. Fred Jackson Platelet mean volume (Bld) [Entitic vol] 8.9 fL Critically low 9.5-13.5 [facility] Comment on above: Performed By: #### C BC #### [facility] [address] [place] [address] Dr. Fred Jackson PLT 404 103/ul Normal 150-450 [facility] Comment on above: Performed By: #### C BC #### [facility] [address] [place] [address] Dr. Fred Jackson RBC 4.42 106/ul Normal 4.20-5.40 [facility] Comment on above: Performed By: #### C BC #### [facility] [address] [place] [address] Dr. Fred Jackson WBC 10.3 103/ul Normal 4.0-11.0 [facility] Comment on above: Performed By: #### C BC #### [facility] [address] [place] [address] Dr. Fred Jackson PROF 14(COMP METB)on 023 Albumin [Mass/Vol] 4.3 g/dL Normal 3.4-5.[address] [facility] Comment on above: Performed By: #### T SH, CMP, BNP, CMADM ####[facility] [address] [address]Dr. Fred Manuel Albumin/Globulin [Mass ratio] 1.2 {ratio} Normal [facility] Comment on above: Performed By: #### T SH, CMP, BNP, CMADM ####[facility] [address] [address]Dr. Fred Manuel ALP [Catalytic activity/Vol] 96 U/L Normal 46-116 [facility] Comment on above: Performed By: #### T SH, CMP, BNP, CMADM ####[facility] [address] [address]Dr. Fred Jackson ALT [Catalytic activity/Vol] 34 U/L Normal 14-59 [facility] Comment on above: Performed By: #### T SH, CMP, BNP, CMADM ####[facility] [address] [address]Dr. Fred Jackson Anion gap [Moles/Vol] 16.6 mmol/L Normal [facility] Comment on above: Performed By: #### T SH, CMP, BNP, CMADM ####[facility] [address] [address]Dr. Fred Jackson AST [Catalytic activity/Vol] 39 U/L Critically high 15-37 [facility] Comment on above: Performed By: #### T SH, CMP, BNP, CMADM ####[facility] [address] [address]Dr. Fred Jackson Bilirubin [Mass/Vol] 0.8 mg/dL Normal 0.2-1.0 [facility] Comment on above: Performed By: #### T SH, CMP, BNP, CMADM ####[facility] [address] [address]Dr. Fred Jackson Calcium [Mass/Vol] 10.1 mg/dL Normal 8.5-10.[address] [facility] Comment on above: Performed By: #### T SH, CMP, BNP, CMADM ####[facility] [address] [address]Dr. Fred Jackson Chloride [Moles/Vol] 91 mmol/L Critically low 98-107 [facility] Comment on above: Performed By: #### T SH, CMP, BNP, CMADM ####[facility] [address] [address]Dr. Fred Jackson CO2 [Moles/Vol] 25.5 mmol/L Normal 21.0-32.0 [facility] Comment on above: Performed By: #### T SH, CMP, BNP, CMADM ####[facility] [address] [address]Dr. Fred Jackson Creatinine [Mass/Vol] 0.95 mg/dL Normal 0.55-1.02 [facility] Comment on above: Performed By: #### T SH, CMP, BNP, CMADM ####[facility] [address] [place], [place] [address]Dr. Fred Jackson EGFR-AF SPANISH >60 Normal >=60 [facility] Comment on above: Performed By: #### T SH, CMP, BNP, CMADM ####[facility] [address] [place], [place] [address]Dr. Fred aJckson EGFR-NON AF SPANISH 58 mL/min/1.73m2 Critically low >=60 [facility] Comment on above: Performed By: #### T SH, CMP, BNP, CMADM ####[facility] [address] [place], [place] [address]Dr. Fred Jackson Globulin (S) [Mass/Vol] 3.6 g/dL Normal [facility] Comment on above: Performed By: #### T SH, CMP, BNP, CMADM ####[facility] [address] [place], [place] [address]Dr. Fred Jackson Glucose [Mass/Vol] 116 mg/dL Critically high 74-106 [facility] Comment on above: Performed By: #### T SH, CMP, BNP, CMADM ####[facility] [address] [place], [place] [address]Dr. Shivandana Jackson Potassium [Moles/Vol] 3.1 mmol/L Critically low 3.5-5.1 [facility] Comment on above: Performed By: #### T SH, CMP, BNP, CMADM ####[facility] [address] [address]Dr. Fred Jackson Protein [Mass/Vol] 7.9 g/dL Normal 6.4-8.2 [facility] Comment on above: Performed By: #### T SH, CMP, BNP, CMADM ####[facility] [address] [address]Dr. Fred Jackson Sodium [Moles/Vol] 130 mmol/L Critically low 136-145 [facility] Comment on above: Performed By: #### T SH, CMP, BNP, CMADM ####[facility] [address] [address]Dr. Fred Jackson Urea nitrogen [Mass/Vol] 17.0 mg/dL Normal 7.0-18.0 [facility] Comment on above: Performed By: #### T SH, CMP, BNP, CMADM ####[facility] [address] [address]Dr. Fred Jackson Urea nitrogen/Creatinin e [Mass ratio] 17.9 mg/mg Normal [facility] Comment on above: Performed By: #### T SH, CMP, BNP, CMADM ####[facility] [address] [address]Dr. Fred Jackson PROTIMEon 08-16-2022 INR Coag (PPP) [Relative time] 1.01 {INR} Normal [facility] Comment on above: Performed By: #### P TT, PT ####[facility] [address] [place], [place] [address]Dr. Fred Jackson INR GUIDELINES SEE BELOW Normal [facility] Comment on above: Result Comment: DOTTY RED INR: 2.0 - 3.0 CONDITIONS NOT LISTED BELOW 2.5 - 3.5 FOR PROSTHETIC HEART VALVE REPLACEMENT 2.5 - 3.5 RECURRENT THROMBOSIS Performed By: #### P TT, PT ####[facility] [address] [place], [place] [address]Fo. Fred Jackson PT Coag (PPP) [Time] 10.7 s Normal 9.0-11.6 [facility] Comment on above: Performed By: #### P TT, PT ####[facility] [address] [place], [place] [address]GtCaroline Jackson PTTon 08-16-2022 aPTT Coag (Bld) [Time] 33.9 s Normal 22.3-36.2 [facility] Comment on above: Performed By: #### P TT, PT ####[facility] [address] [id number] Jackson TROPONIN, HIGH SENSITIVITYon 08-16-2022 HSTROP 15.1 pg/mL Normal 4.0-51.3 [facility] Comment on above: Result Comment: CUT- OFF POINTS HAVE BEEN ESTABLISHED BASED ON THE FOURTH UNIVERSAL DEFINITIONS OF MYOCARDIAL INFARCTION. THE UPPER REFERENCE LIMIT (URL) OF TROPONIN, DEFINED THE 99TH PERCENTILE OF cTnI DISTRIBUTION IN A REFERENCE POPULATION, HAS BEEN CONFIRMED THE DECISION THRESHOLD FOR [place] DIAGNOSIS. Performed By: #### H STROPN #### [facility] [address] [place], [place] [address] Dr. Fred Jackson TSHon 08-16-2022 TSH 4.364 uIU/mL Critically high 0.358-3.740 [facility] Comment on above: Performed By: #### T SH, CMP, BNP, CMADM ####[facility] [address] [id number]. Fred Jackson XR CHEST 1 Von 08-16-2022 [...] DALI MYERS Date: 2022-08-16 00:02 Normal [facility] Covid-19 PCR (CVDTB)on 03-06 SARS-CoV-2 (COVID-19) RNA VERONICA+probe Ql (Unsp spec) Detected Critically abnormal NOT DETECTED [facility] Comment on above: Result Comment: This test is not yet approved or cleared by the [place] FDA. When there are no FDA-approved or cleared tests available, and other criteria are met, FDA can make tests available under an emergency access mechanism called an Emergency Use Authorization (EUA). The EUA for this test is supported by the [place] of Health and Human Service's (HHS's) declaration [...] longer be used). Performed By: #### C [facility] ####[facility] [address] [place], [place] [address]Pv. Fred Jackson US CAROTID ART BILon 022 [...] by: TIFFANIE LEON Date: 2022-03-12 14:51 Normal [facility] MG MAMM SCREEN 3D JASMEET CADon 02-09-2022 MG MAMM SCREEN 3D JASMEET CAD Patient: SHARRI COONEY Exam Date: 02/09/2022 : 1950 Gender:F Ordering : DR RINKU PETERSNO . Admission #: [id number] Family : Order #: [id number] CLICK HERE TO VIEW EXAM RADIOLOGY REPORT PROCEDURE: MAMMOGRAM SCREENING 3D BILATERAL CAD COMPARISON: MG MAMM SCREEN JASMEET W CAD, 02/02/2020. MG MAMM SCREEN 3D JASMEET CAD, 02/03/2021. INDICATIONS: Screening mammography Calculator Name NCI Breast Cancer Risk Assessment Tool 5 Year Breast Cancer Risk 1.70% Lifetime Breast Cancer Risk 5.10% Personal Breast Cancer No Personal Ovarian Cancer No Treatments None Family Cancers Father with prostate cancer at age 58. LOCATION: [facility] BREAST COMPOSITION: Heterogeneously dense,which may obscure [...] Zuñiga MD on 02/09/2022 at 09:50 Normal [facility] Coding Summary.on 03-12-2021 Coding Summary. CD:[id number] Gh0bWw+PGhlYWQ+PE1FV UQzF18aqRDwiL6DP4iLY P1JTQJXBPNUSJ0NEE1nq BH0ACzjV6DeosQw PorqbRZfML46KNe7SIZ4 hZatMUijhX2rnPTiG4d5 HrAbPQ62iZ02UBzzNCHr PcP2CpXlwhdhvMUy O3gdRuArnZYtOoz+PHRh YmxlIHdpZHRoPScxMDAl AnBcqPoiEN6jNg6pULQy LWNvbGxhcHNlOiBj n7ptKQMlFYwmCM6toNbg D8GchDO6LTFzs0z0Lo42 dHI+FBNbDZW3zAjeYAzz g935PjKgp5trYLP3 oSXuTVxgSDT7Q77ht3C7 WXJsBEXmZDT4iEM3vW4q lQwnkueiN6NvnCWmCxK2 OCN2sZQeyQ3tuRvo bzirhZ4tFnq+U29JUI0Y QFAJPO7ZCvw2X3RlEimg dHI+DF33LKBtQD87dMGs aJKfm9edfQn2WbEa TJAfUHU6nUcvVDikl8Qj NWTsI90dsXWsx1G8WWDu sPjmcOHkMxKgpBQ0hO5r BNogyufpz1dpaqfi Cipwu2iotw21uG41T99s YOusJMKlMQM8IEKcONFn dTswal1hfY9tZe9+IDxj v2hjh3yalPe4WmGn PDTshtFqkVimDXF8s1Hh Bk46A7MgnIaji1TzOvh3 jp99zIUqp5V4gTI1JHnw RMLkrF4aQMjkOsH3 CBKpEzIyfS55pTHgLAbq Nh6rhIkdsPfoWQ1oUZUb nhihIOVwoG3vSGAtgSMm qFgwHZ6mSKUxjhyd g290ItQxYWQ0WWGbmFSb V3ZoxW3qIlBxVEPsNGIi R6JkfAAjXLgeG766JBpu ZnJ7DJDvusZqN8Gy EMOtbQrvCoF5d6I5Ib6A k1EmrlebVME2KGskLJA5 IgE6EdXjPcG3J8BnIad8 YVKrjDkoZR0tX9Dm OHWgppavcayczWA2CEQe JHOyeG49xYOuWFtnQp4l s5H3s728KSJvGIUtmR89 Kd7nlVkjMTFznEIV kB5pluwre8kvunagCbOu YESoSNy4CKv2WOOtxYxk XdKiARX0EeT1XDS6tEGj sT8axAybyoxljG8t Oyc+H84ntB8yVII9VWD6 vcnuKLFomcPlLU99HQ49 A6FaNczouSDykSR+PGRp mzMoeVaoJM3bHyAq c0akf1JiZWhuG9QcBJNa JHauUia0DNGuBFR6oSI0 aH6sCYSoBVkmz8J0vAC9 W3DrenWzhf5nx1du XEPxZTszO28shOZuu4D4 HQIykQT9SQLzcWrhXzHl vF66Ayz+JCBizXdbs6Ai Yxtpf9aea6hjyDl5 IjMwJSIgdmFsaWduPSJ0 v2ChVn32V36eWBhrSRUn GQWvPDSbMIDeyXnips2o oV2xDn0+PGNvbCB3 zYU6zJ2iGZCvXxB1XXkb P659EpPscRTjLwnzp2nj q6rfsNm3HxFjTOHulsTy aGwlVYB0h1QxYx95 N95kGUmvZLWuSEZaPNKz ONJvsUsczb8iaU3gGx7+ XT0do8oznd28bC97mNI+ WSWnYPT1cZmcOUct ZVBofH0gZFjwZbF3BNTy NcPmtC39yKWvCYgoKu6g nLwifKpaWM7sMLRezocr n553CuCpt0lxATLg aJUjACjxQNV9V09em8K9 MXLeQJGpMBP6tBB4xS1j bGlnbjogbGVmdDsgdmVy uJuvEFzoSYckR860 IHRvcDsnPlBhdGllbnQg TxUcXJq2U8YeOst8LRRu cGrgWT3tfZJsEEdwVe0q tScqrAqwVQ5oPDJe ngtab539YqJqp3jkWQUm hLAkJWfpIJK7Z02xe4T0 QJQsITVjKCS1xBU6iQ0g bGlnbjogbGVmdDsg idKwpCxzEZwbQLscP098 IHRvcDsnPkJpcnRoIERh fZF2VG76AG01vMKdw9H3 wQW4U2FpLVYfglhf gpluhKQ7WBVfNXRdcC45 Yj8fmDuqNm5dDRTyDCE1 YWLsjVDfQ6QinU2tMmZy KUZqIUAoF0GjcJQi BBmyL715UEzlDpF9MBYl cyGtG0UgMCYykNdjHrP2 f0X6Ct0DN7Z9MA29CD81 vVEut2D2oDE7D2Fc IXViizsdfgnomXV6RJQq ACDfpM75Pe8ytMabCy0y MZQqALG6SFOawGVhT5An zB5pPzXlZDZeSUHf A2WgrQYdHGedZ374FAwm HoP3TEKljqNpP3DmOFOz nZsjTkN1a9E3Cx5XELm7 MK79PY07cTIgy9Y0 dYG2R4AbVXYqflxdcbgt cJS9YBXiXJSsyP43Uh8j qXboQr3bABLyCIC3GCAr xTKgA4BabO7cOgFi AOIoIQXvQ8OzdRFoUIhl S375FTleDxE0DBFilqWe L3BqGCGyaAwdKhQ6c6Q6 Zt3UQWTaYW07SZN6 oVL3ZF41YG26B5UfQsqc dGFibGU+PHRhYmxlIHdp ZHRoPScxMDAlJyBzdHls QF3kZm2kLJYbYHKq sVelpYUdZjFhv7vuVLCe UCoxVC8ivXmiI1KsxYG5 NFBab0n3Ow92N49xW4Yn dXA+ZKNqgYG3qVA8 eA0bNbFoXjB7MCejR968 LmAbrEEsDghvx3cvp4xe tGc2RyM5FYOzlcZvdLqs MSN7u5MmQv91E87u IHdpZHRoPSIxNSUiIHZh bEaczt8viE9yBh6+PGNv nDS7rTW6cX8jYgJbQnJ2 ZNjxW437VfVqdPOy Vlyzy5ygt4evuVa4LuSi ZDAhusVuwSsxNKU2y0Jg Gf87F3NdrEfpc2CyTlw7 yt68qRCek2K2oMD8 U8NnJXRtuffydBDnnBql YC9mVLZeaknqNIPlmA4m MXTsT5r4FsAhQoT2QGct M3TaywZ3DXIpiKXs IWhtCAA2H44tz2H3QLRn MRVaMHB5tLR7wE9ziBbi bjogbGVmdDsgdmVydGlj XYanPZfyH479WPCy pVuoURGnkN1nFBMabIQf kJaeUX5yTFIgzstzKkRY UlJPTEwsIFNVWkFOTkU8 X8NrUxu7AJMqsVpl WU0chQCoDDyjHi3glZjy pGhwSN2sMWShrzksWCUl dI0nPKPswAChkRjyGT6s PCWneeyld556AmYm PJC4EZUtwZUbT6JypU9l DeRjLKCzMPYaK9HgqLWa RTuoQ191CAjbYmV2QUQq pqNrP9TpCQLkaVsq RtX6g6I4Vm7eRj2cOC7a YURrPW51XS59yJXfl4J7 mGG2P8DsVVXwoewazwnk lJN7EAXoNVMolI74 jUBrMTlhTt5cp1M0b897 MAKmOACpiE43Hc2ojYfs LRUdgOHRoT6drkngw5ko cjogIzAwMDAwMDt0 MEv7HXKkvKeqEaWrZPA0 HvQ8SKL0rXVdrJ2vbUly zaostQ3wRwm+NjggWWVh icD4Y6XaRej2WLEd iMvtZM0anXKrICrsNg5b iLsgvIcqWP8dOAFroivh ZMYznM0yRORtrKVyqAsb JR3fTTAsuptek199 KyTmWFS9MVWtgMPtL9Lf gC6iTiZuMVYoWSJwV5Ue iIWmCPpnD223EZtoIpI9 KECrizBpN2QdDTLh eFcdLdH1b8B0Dt7DLU3t zES8W7YtXqp9RGHaeWkr FY3kgGCbWUzoCd4oxNag wOqgBV5wGVNkidig UVGglL1vVUGnuQYfvJtq OO7cXUQncqfiu479WnPl ICW9PWFlsSFcZ9JzkA1v MaXwNEVxQEXlS5Hx mLGwXOygF955OPfxKpG3 JVIrxaQbX1CaVRCeiZzz RzE9e8P7Sj8FUGZfBVIn gUEoNtO1C5PlFqyy dHI+SR15GSUeYX55xPGk dRIqg8kdiAh9WzGzOUTd IEO7eMhuHOhuo9TzJZFk A92seDQbw3B5OOCb fLfrePVyKjZerEO1lR6u RKuchwmkl5hbvbniDthf u9tiii85dG22K92jZRft ZHRoPSIzMCUiIHZh dNlavc2buF4jKa5+PGNv nHL4xBP3zJ8tVqFcKxY5 MTmlJ018RsHgoSYmAufk z9vak1jiyNy7DtRm JNSvcsXniIdpNZJ2j8Ae Ha38C12sRIhcMCSmQXPv JGDnOKLiqYlmwm3oyR5c Ii8+TS5mh6kfld40 eH54fOX+UMWtFGF7aRtg IVviFFOzkI5dDCocQpG2 PTGfTmAfwZ68qFWrXHcf Jf7qzAudwZhvLK6j IMThtkyue519SyXdg6sh GNRvaNEsOMlqJXV3O54s z7O7UBOwUXKhLDD4bTA6 qU0mgQawpobacQUk dDsgdmVydGljYWwtYWxp C352IEFbrFnaTzXefVOa S8uhcmQZVQ3cXemjzHN+ VINbTUF6aEqiZXwe VDMevM2dIYGlO3f5MjTk YxK6MXwdF9PypcA1CHHo aKAtEJFwuPHFxQ7jjszg w0hfqqylZkKmROBh FCr6GHr3ABIlhShbXaOi DVT5ThQ3OEZ7oCAfjP1r fAboxvyjvS3pUdm+RklO OjwvdGQ+PHRkIHN0 wBbbXPklWUKroZ7iTIGi E3s8XrAxXyD5FNaeP3Ck xuJ1LHHbeVYsTNJuoMQA jI2vvywot3xtpwda CfHfNCKyZSu0CXm6EDQn tEoiVsBaARN1VeM2PYW2 tFQvnP4oiOcngqqnhU5v Oyc+TVJOOjwvdGQ+ VANfZTK1oIlxTNuwSRBz jJ0sOJXiD0e9EzKrSlD8 DKkyA7VqrmV3PTEakUAv XVMuhVUCcT6razlo d4ttivrkQfCgXSHzUMd5 XPi6BKRtyUpsXxHqLLU5 BpU2HNB9sJAktP3lyScm ykopaP0pOdu+UGF5 YEM9VX90SU61F5BrZmrc dGFibGU+PHRhYmxlIHdp ZHRoPScxMDAlJyBzdHls RA9fHp2fLGSnSTFl bGxh (more content not included)... Normal [facility] Physician Orderon 02-19-2021 Physician Order [id number] 0#1.00CD:127 Normal [facility] Vital Signs Date Time Vital Sign Value Performing Clinician Facility 04-22-2023 12:20-0400 Body height 153.67 cm Broderick Solomon Other [facility] Other 04-22-2023 12:20-0400 Body mass index (BMI) [Ratio] 24.58 kg/m2 Broderick Solomon Other [facility] Other 04-22-2023 12:20-0400 Body temperature 98.3 [degF] Broderick Solomon Other [facility] Other 04-22-2023 12:20-0400 Body weight 58.06 kg Broderick Solomon Other [facility] Other 04-22-2023 12:20-0400 Respiratory rate 18 /min Broderick Solomon Other [facility] Other 04-22-2023 12:20-0400 SaO2% (BldA) [Mass fraction] 96 % Broderick Solomon Other [facility] Other Encounters Encounter Date Encounter Type Care Provider Facility Start: 10-28-2023 End: 10-28-2023 ambulatory [facility] Start: 06-04-2023 End: 06-04-2023 ambulatory [facility] Start: 04-22-2023 End: 04-22-2023 ambulatory Broderick Solomon Other [facility] Other Start: 04-22-2023 Office outpatient vi sit 15 minutes Broderick Solomon [facility] Start: 12-30-2022 End: 12-30-2022 ambulatory [facility] Start: 10-23-2022 End: 10-24-2022 ambulatory LEAH SEALS Facility:[facility] Start: 09-10-2022 End: 09-11-2022 ambulatory LEAH SEALS Facility:[facility] Start: 08-25-2022 End: 08-26-[address] RINKU PETERSON . Facility:[facility] Start: 08-16-2022 End: 08-16-[address] RNIKU PETERSON . Facility:[facility] Start: 03-30-2022 End: 03-30-2022 ambulatory MYRA LEUNG Facility:[facility] Start: 03-12-2022 End: 03-13-[address] TIFFANIE LEON Facility:[facility] Start: 02-09-2022 End: 02-10-[address] RINKU PETERSON . Facility:[facility] Immunizations Immunization Date Immunization Notes Care Provider Henry greenberg 12-19-2016 tetanus toxoid, reduced diphtheria toxoid, and acellular pertussis vaccine, adsorbed Broderick Perris Other [facility] Other Payers Date Payer Category Payer Medicare [id number] 1950 Unknown [id number] 2.16.84 [id number] 1950 Unknown [id number] 2.16.84 [id number] 1950 Unknown [id number] 2.16.84 [id number] 1950 Unknown [id number] 2.16.84 [id number] 1950 Unknown [id number] 2.16.84 [id number] 1950 Unknown [id number] 2.16.84 [id number] 1950 Unknown [id number] 2.16.84 [id number] Social History Date Type Detail Facility Unknown if ever smoked [facility] Other Sex Assigned At Sex Assigned At Bir th [facility] Other Clinical Notes 12-30-2022 to 10-28-2023 Note Date & Type Note Facility 10-28-2023 Note Patient here for fol low up [facility] ED for afib. Says she recently got back from a cruise and was very anxious the whole time about everything. Denies chest pain, SOB, lightheadedness/syncope, and bleeding on Eliquis. In the ED she was given RX for hydroxyzine for her anxiety. Lili Perry CNP advised that she not take this because it can possibly cause arrhythmias. But Lili was also under the impression that patient was on amiodarone, which she is not. She made Dr. Peterson's office aware that she was advised by cardiology to not take hydroxyzine, so he gave her RX for Xanax. She hasn't picked this up yet and wants to know if she should. Review of Systems Cardiovascular: Positive for palpitations. Psychiatric/Behavioral: The patient is nervous/anxious. All other systems reviewed and are negative. [facility] 10-28-2023 Note [facility]rophys[facility] Consult Note Reason for visit: PAF/MR/HTN/HLD 10/28/2023 She recently went on a cruise and she felt intermittent palpitations. She felt like she was back in a.fib a few days ago so she went to the ER. EKG showed she was in sinus with frequent PACs. She has felt like she has been in a.fib since noon today. Initial EKG showed she was in a.fib with RVR. During exam, she reverted to sinus tach with PACs. She gets SOB and feels anxious when she is in a.fib. 06/04/23: She is here for 6-month follow-up [...] hypertension 12/2022 HPI: Sharri Cooney is a 73 y.o. year old with past medical history [...] or signs patient was recently seen in [place] ED 08/2022 for palpitations. She was found [...] palpitations, lightness, dizziness, fatigue 08/2022 ECG by [facility]- appears to be sinus tach with [...] alcohol infrequently, no significant caffeine intake, no cela-pfn-leqcabq decongestions Family history: Her mother of a [...] alcohol infrequently, no significant caffeine intake, no fztg-rzj-iolyfsr decongestions Family history: Her mother of a [...] Determinants of Health Tobacco Use: Low Risk (06/04/2023) Patient History Smoking Tobacco Use: Never Smokeless Tobacco Use: Never Passive Exposure: Not on file Alcohol Use: Not on file Financial Resource Strain: Not on file Food Insecurity: Not on file Transportation Needs: Not on file Physical Activity: Not on file Stress: Not on file Social Connections: Not on file Intimate Partner Violence (more content not included)... [facility] 06-04-2023 Note Patient here for 6 m o follow up PAF, mitral valve regurgitation, and hypertension. She had an echo in January 2023. Says her BP has been running around 150/90, as she is always high strung this time of year . Denies chest pain, SOB, palpitations, lightheadedness, and bleeding on Eliquis. Review of Systems All other systems reviewed and are negative. [facility] 06-04-2023 Note [place] Electrophysiology Consult Note Reason for visit: 6 [...] or signs patient was recently seen in [place] ED 08/2022 for palpitations. She was found [...] palpitations, lightness, dizziness, fatigue 08/2022 ECG by [place] ED- appears to be sinus tach with [...] alcohol infrequently, no significant caffeine intake, no kvoq-jio-zqhqosy decongestions Family history: Her mother of a [...] alcohol infrequently, no significant caffeine intake, no olzf-xkr-hmsmrns decongestions Family history: Her mother of a [...] (Eliquis) 5 m (more content not included)... [facility] 04-22-2023 Evaluation note Encounter Date Diagnosis Assessment [...] see your pcp. Take tylenol as needed. [facility] Other [id number] Note- history of mild regurgitation from echo 2020 - we will repeat echocardiogram to assess valvular regurgitation and LA size [facility]06-28-2023 Note- elevated today, she states this normally low - we will have her check her blood pressure 2-3 times a day for 1 week and send clinic the readings - continue Toprol-XL 50 mg daily, Zocor 10 mg daily, lisinopril-hydrochlorothiazide 10-12.[facility]-History of paroxysmal A-fib, recent ER visit does not look like she had A-fib - continue Eliquis 5 mg twice daily - [id number] at least 3 for age, gender, hypertension - continue metoprolol XL 50 mg daily - in the past she was on amiodarone for short-term, converted chemically and then amiodarone was discontinued - recent ER visit she had elevated [facility] 12-30-2022 Note[place] Electrophysiology Consult Note Reason for visit: 10 [...] or signs patient was recently seen in [place] ED 08/2022 for palpitations. She was found [...] palpitations, lightness, dizziness, fatigue 08/2022 ECG by [place] ED- appears to be sinus tach with [...] alcohol infrequently, no significant caffeine intake, no ykgf-npl-gqcezac decongestions Family history: Her mother of a [...] alcohol infrequently, no significant caffeine intake, no ofde-bay-uljnhmw decongestions Family history: Her mother of a [...] tablet by mouth in (more content not included)...[facility]06-28-2023 NoteReview of Systems All other systems reviewed and are negative.[facility] History general Narrative - Reported* Type Description Date Medical History HTN Medical History HYPERLIPIDEMIA Medical History SHINGLES Medical History GUILLAIN-BARRE SYNDROME Medical History Afib Surgical History TUBALIGATION Surgical History EYE SURGERY Surgical History MACULAR HOLE Surgical History LUMP REMOVED FROM LEFT BREAST Surgical History bunionectomy Hospitalization History 3 CHILD BIRTHS Hospitalization History GUILLAIN-BARRE SYNDROME [facility] Other Summary Purpose Family History No Family History Records FoundNo Family History Records FoundNo Family History Records Found Advance Directives No Advanced Directives Records FoundNo Advanced Directives Records FoundNo Advanced Directives Records Found Additional Source Comments INFORMATION SOURCE (unrecogn ized section and content) DATE CREATED AUTHOR 03/13/2021 [facility] DATE CREATED AUTHOR AUTHOR'S ORGANIZ ATION 10/30/2022 [facility] DATE CREATED AUTHOR AUTHOR'S ORGANIZ ATION 10/30/2023 [facility] REASON FOR VISIT (unrecogniz ed section and [...] BE BASED ON THE PRIMARY CLINICAL RECORDS. [employer] provides no warranty or guarantee of the accuracy or completeness of information in this document.
--- NOTE | 2023-11-02 18:04 | XR_ITS ---
The [address] [address] Patient Name: MADAN COONEY MRN: [id number] date: 1950 Sex: F Assigned Patient Location: ED.MAIN Current Patient Location: ED.MAIN Accession/Order Number: [id number] Exam Date: 11/02/2023 18:52 Report Date: 11/02/2023 19:41 At the request of: NASREEN ALCANTAR Procedure: XR shoulder LT min 2V EXAM: XR shoulder LT min 2V HISTORY: The patient is a 73-year-old female with pain COMPARISON: None. FINDINGS: The left shoulder is radiographically negative with no evidence of fracture, dislocation, calcific tendonitis, or other osseous or articular abnormalities. The glenohumeral joint is maintained. The acromioclavicular joint is maintained. The subacromial space is maintained. Incidentally noted is an enthesopathic cyst within the humeral head, of no clinical significance. XR/XR shoulder LT min 2V IMPRESSION: Negative. Electronically authenticated by: DENNISE GALLAGHER Date: 11/02/2023 19:41
[2023-11-02 18:22] LABS: Basophils Absolute Auto 0.1 10^3/uL (0.0-0.1); Basophils Percent Auto 0.8 % (0.2-2.0); Eosinophils Absolute Auto 0.1 10^3/uL (0.0-0.7); Eosinophils Percent Auto 1.2 % (0.9-7.0); Hematocrit 39.3 % (36.0-48.0); Hemoglobin 13.1 g/dL (12.0-16.0); Immature Granulocytes Abs Auto 0.08 10^3/uL (0.00-0.03); Lymphocytes Absolute Auto 1.2 10^3/uL (1.2-3.8); Lymphocytes Percent Auto 14.2 % (20.5-60.0); Mean Corpuscular HGB Conc 33.3 g/dL (29.9-35.2); Mean Corpuscular Hemoglobin 30.4 pg (26.7-34.0); Mean Corpuscular Volume 91.2 fL (81.0-99.0); Mean Platelet Volume 8.6 fL (9.5-13.5); Monocytes Absolute Auto 0.9 10^3/uL (0.3-0.8); Monocytes Percent Auto 10.9 % (1.7-12.0); Neutrophils Percent Auto 71.9 % (43.0-75.0); Platelet Count 363 10^3/uL (150-450); Red Blood Count 4.31 10^6/uL (4.20-5.40); Red Cell Distribution Width 11.9 % (11.0-15.0); White Blood Count 8.4 10^3/uL (4.0-11.0)
[2023-11-02 18:38] LABS: Alanine Aminotransferase 31 U/L (14-59); Albumin Globulin Ratio 0.9; Albumin Level 3.6 g/dL (3.4-5.0); Alkaline Phosphatase 92 U/L (46-116); Aspartate Amino Transferase 28 U/L (15-37); BUN Creatinine Ratio 15.5; Bilirubin Total 0.5 mg/dL (0.2-1.0); Calcium 9.3 mg/dL (8.5-10.1); Carbon Dioxide 28.6 mmol/L (21.0-32.0); Chloride 94 mmol/L (98-107); Estimated GFR (African America >60 (>=60); Estimated GFR (Non-African Ame 53 (>=60); Globulin 3.9 g/dL; Glucose 116 mg/dL (74-106); Magnesium 2.1 mg/dL (1.8-2.4); Potassium 3.6 mmol/L (3.5-5.1); Sodium 131 mmol/L (136-145); Total Protein 7.5 g/dL (6.4-8.2)
--- NOTE | 2023-11-02 18:38 | ED.EXTPRO1 ---
HPI - Extremity Problem General Chief complaint: Extremity Problem, Nontraumatic Stated complaint: Allergic Reaction Time Seen by Provider: 11/02/23 17:48 Source: patient and family Mode of arrival: walk-in Limitations: no limitations History of Present Illness HPI Narrative: The patient presenting to us with a concern that she is having side effects from her levofloxacin that she was taking for the last 7 days. The patient was taken that for urine infection she mentioned that she had Guillain-Jarquin? reaction to ciprofloxacin almost more than 20 years ago. The patient is coming to the ER because she is concerned and she was reading the side effects she has been having some stiffness in her knees as well as left shoulder limitation of movement that she noticed over the last few days. Last dose of the antibiotic that she took was yesterday almost around the same time. She denies any other concerns Related Data Home Medications ?Medication ?Instructions ?Recorded ?Confirmed apixaban 5 mg tablet (Eliquis) 5 mg PO BID 10/26/23 11/02/23 ascorbic acid (vitamin C) 500 mg 500 mg PO DAILY 10/26/23 11/02/23 tablet (Vitamin C) calcium carbonate 600 mg-vitamin 1 cap PO BID 10/26/23 11/02/23 D3 5 mcg (200 unit) capsule (Calcium 600 + D(3)) lisinopril 10 1 tab PO DAILY 10/26/23 11/02/23 mg-hydrochlorothiazide 12.5 mg tablet metoprolol succinate 50 mg 100 mg PO DAILY 10/26/23 11/02/23 tablet,extended release 24 hr potassium chloride 10 mEq 20 meq PO DAILY 10/26/23 11/02/23 tablet,extended release simvastatin 10 mg tablet 10 mg PO DAILY 10/26/23 11/02/23 magnesium oxide 400 mg PO .once in morning 11/02/23 11/02/23 Allergies Allergy/AdvReac Type Severity Reaction Status Date / Time ciprofloxacin [From Cipro] Allergy Severe Verified 11/02/23 17:47 Sulfa (Sulfonamide Allergy Flushing Verified 11/02/23 17:47 Antibiotics) Review of Systems ROS Status of ROS 10 or more systems reviewed and unremarkable except as noted in history and below Exam Narrative Exam Narrative: Nurses notes and vital signs reviewed and patient is not hypoxic. General: Well-appearing and in no apparent distress. Skin: Warm, dry, no pallor noted. No rash. Head: Normocephalic, atraumatic. Neck: Supple, non-tender. Eye: Pupils are equal, round and EOMI. No scleral icterus. Ears, Nose, Mouth, and Throat: TM are clear, no nasal mucosal hypertrophy. Oral mucosa is moist, no posterior oropharynx erythema, uvula is mid-line Cardiovascular: Regular Rate and Rhythm without murmur, gallop or rub. Respiratory: No accessory muscle use or respiratory distress. Lungs are clear to auscultation, no wheezing, rales or rhonchi Chest Wall: no tenderness Back: No midline thoracic or lumbar vertebral tenderness. No CVA tenderness Musculoskeletal: normal ROM, no calf or popliteal tenderness, no lower extremity edema/swelling the patient had some limitation with abduction of the left shoulder above 90 degrees no tenderness on palpation GI: Abdomen is soft, non-distended. Normal bowel sounds. No masses appreciated. No tenderness to palpation. No rebound, guarding, or rigidity noted. Neurological: A&O x4. No cranial nerve dysfunction observed. No truncal ataxia. Moves all extremities. Sensation intact. Psychiatric: Cooperative and interactive. Normal mood and affect. Constitutional Vital Signs, click to edit/add: Last Vital Signs Temp 98.5 F 11/02/23 17:42 Pulse 88 11/02/23 17:42 Resp 18 11/02/23 17:42 BP 145/95 H 11/02/23 17:42 Pulse Ox 98 11/02/23 17:42 O2 Del Method Room Air 11/02/23 17:42 Course Vital Signs Vital signs: Vital Signs Temperature 98.5 F 11/02/23 17:42 Pulse Rate 88 11/02/23 17:42 Respiratory Rate 18 11/02/23 17:42 Blood Pressure 145/95 H 11/02/23 17:42 Pulse Oximetry 98 11/02/23 17:42 Oxygen Delivery Method Room Air 11/02/23 17:42 Temperature 98.5 F 11/02/23 17:42 Pulse Rate 88 11/02/23 17:42 Respiratory Rate 18 11/02/23 17:42 Blood Pressure 145/95 H 11/02/23 17:42 Pulse Oximetry 98 11/02/23 17:42 Oxygen Delivery Method Room Air 11/02/23 17:42 MDM - Extremity (Nontraumatic) MDM Narrative Medical decision making narrative: The patient is concerned about the side effect because she had already had a reaction to ciprofloxacin and right now her clinical examination did not show anything significant except for limitation of the shoulder abduction which could be secondary to osteoarthritis, But still the patient is worried about tendon inflammation and she does not have any pain She already stopped taking the antibiotic and I explained to her that she need to continue hydration Will obtain a just general blood workup to make sure the calcium magnesium and potassium are okay and she is to continue hydration follow-up with orthopedic as outpatient X-ray ordered and pending In case of no acute pathology and the X-ray of the shoulder the patient will be referred to orthopedic as outpatient pt care transferred to Dr Hunter Pending Xray result Lab Data Labs: Lab Results 11/02/23 Range/Units 18:11 WBC 8.4 (4.0-11.0) 10^3/uL RBC 4.31 (4.20-5.40) 10^6/uL Hgb 13.1 (12.0-16.0) g/dL Hct 39.3 (36.0-48.0) % MCV 91.2 (81.0-99.0) fL MCH 30.4 (26.7-34.0) pg MCHC 33.3 (29.9-35.2) g/dL RDW 11.9 (11.0-15.0) % Plt Count 363 (150-450) 10^3/uL MPV 8.6 L (9.5-13.5) fL Neut % (Auto) 71.9 (43.0-75.0) % Lymph % (Auto) 14.2 L (20.5-60.0) % [place] % (Auto) 10.9 (1.7-12.0) % Eos % (Auto) 1.2 (0.9-7.0) % Baso % (Auto) 0.8 (0.2-2.0) % Neut # (Auto) 6.0 (1.4-6.5) 10^3/uL Lymph # (Auto) 1.2 (1.2-3.8) 10^3/uL [place] # (Auto) 0.9 H (0.3-0.8) 10^3/uL Eos # (Auto) 0.1 (0.0-0.7) 10^3/uL Baso # (Auto) 0.1 (0.0-0.1) 10^3/uL Abs Immat Gran (auto) 0.08 H (0.00-0.03) 10^3/uL Imm/Tot Granulo (auto) 1.0 H (0.0-0.5) % Sodium 131 L (136-145) mmol/L Potassium 3.6 (3.5-5.1) mmol/L Chloride 94 L (98-107) mmol/L Carbon Dioxide 28.6 (21.0-32.0) mmol/L Anion Gap 12.0 BUN 16.0 (7.0-18.0) mg/dL Creatinine 1.03 H (0.55-1.02) mg/dL Est GFR ( Amer) >60 (>=60) Est GFR (Non-Af Amer) 53 L (>=60) BUN/Creatinine Ratio 15.5 Glucose 116 H (74-106) mg/dL Calcium 9.3 (8.5-10.1) mg/dL Magnesium 2.1 (1.8-2.4) mg/dL Total Bilirubin 0.5 (0.2-1.0) mg/dL AST 28 (15-37) U/L ALT 31 (14-59) U/L Alkaline Phosphatase 92 (46-116) U/L Troponin I High Sens 5.9 (4.0-51.3) pg/mL Total Protein 7.5 (6.4-8.2) g/dL Albumin 3.6 (3.4-5.0) g/dL Globulin 3.9 g/dL Albumin/Globulin Ratio 0.9 Discharge Plan Discharge Stand Alone Forms: Portal Instructions Chief Complaint: Extremity Problem, Nontraumatic Clinical Impression: At risk for allergic reaction to medication, Arthritis of left shoulder region Patient Disposition: Home, Self-Care Time of Disposition Decision: 18:41 Condition: Good Prescriptions / Home Meds: No Action metoprolol succinate 50 mg tablet extended release 24 hr 100 mg PO DAILY simvastatin 10 mg tablet 10 mg PO DAILY lisinopril-hydrochlorothiazide 10-12.5 mg tablet 1 tab PO DAILY Eliquis 5 mg tablet 5 mg PO BID potassium chloride 10 mEq tablet extended release 20 meq PO DAILY Calcium 600 + D(3) 600 mg-5 mcg (200 unit) capsule 1 cap PO BID ascorbic acid (vitamin C) [Vitamin C] 500 mg tablet 500 mg PO DAILY Hold Instructions: Doctor's Order magnesium oxide 400 mg magnesium capsule 400 mg PO .once in morning Print Language: Syrian Instructions: Osteoarthritis (ED), Allergies (ED) Referrals: Ron Peterson MD [Primary Care Provider] - 1 week Leander Aguiar MD [Physician] - 1 week
[2023-11-02 18:40] LABS: Troponin I High Sensitivity 5.9 pg/mL (4.0-51.3)
[2023-11-02 19:41] VITALS: BP 138/78; PULSE 74; O2SAT 95
== END 2023-11-02 20:04 | disposition home or self-care (01) ==
PROVIDERS: Emergency Medicine; Emergency Provider Emergency Medicine; PCP Family Medicine
DX: M19.012 Primary osteoarthritis, left shoulder (principal); Z79.899 Other long term (current) drug therapy; Z79.01 Long term (current) use of anticoagulants
CPT/HCPCS: 36415; 73030; 80053; 83735; 84484; 85025; 99284

== ENCOUNTER 2023-11-23 08:27 | Outpatient (OUT) | payer MEDICARE, SELFPAY ==
--- NOTE | 2023-11-23 | PCN_ITS ---
CARDIAC STRESS TEST Requesting Physician: < > Procedure Date: 11/23/2023 REASON FOR TEST: To consider starting class 1 agent for atrial fibrillation. The patient presented with an EKG that was revealing for sinus rhythm at rest. There was no evidence of any ischemia. Normal intervals were noted. Blood pressure was noted to be 160/94 mm/Hg. With exercise, the patient?s heart rate achieved a max of 150 beats per minute. She exercised for 7 minutes and 34 seconds, reaching stage 3, achieving 10 METS. Maximum blood pressure noted was 180/103 mm/Hg with 100% < > reaching maximum heart rate. With exercise, there was some degree of ST segment depression that was noted in the inferior leads noticed in stage 2, concerning for ischemia. There was significant baseline burst noted, which made it difficult to confirm this. During recovery, a single PVC was noted. Reason for termination is achievement of heart rate being achieved. The blood pressure was noted to be IMPRESSION: 1. The EKG portion of the stress test was concerning for some ST segment changes in the inferior leads, concerning for ischemia. 2. No evidence of chronotropic incompetence with no evidence of any arrhythmia noted. 3. Blood pressure response was noted to be normal with a good functional capacity, based on the METS achieved. 4. Almodovar treadmill score was medium. 5. Nuclear portion of the study to be dictated separately by Radiology. RECOMMENDATIONS: EKG portion concerning for a positive stress test. Will need further cardiac evaluation. MTDD
--- NOTE | 2023-11-23 08:15 | NM_ITS ---
Patient Name: MADAN COONEY MR#: [id number] : 1950 Exam Date: 11/23/2023 Ordering Doctor: PRETTY ALEMAN CNP RADIOLOGY REPORT PROCEDURE: NM ANGELI PERF SPECT REST STR COMPARISON: None. INDICATIONS: ATRIAL FIBRILLATION, ABNORMAL EKG TECHNIQUE: Exam Description: Stress/Rest one day protocol gated SPECT Rest Imagin.6 mCi Tc-99m Cardiolite IV on 11/23/2023 Stress Imaging 30.3 mCi Tc-99m Cardiolite IV on 11/23/2023 Exercise Protocol: Emmanuel Heart Rate (bpm): Rest: 66 Max: 150 PMHR: 100 Blood Pressure: Rest: 160/94 Max: 180/102 Exercise Time: Minutes: 7 Seconds: 24 Stage Reached: Stage: 3 Mets 10.1 Symptoms: Rest and peak stress ECG findings were pending and the exercise portion of the study was pending per attending physician Dr. PALACIOS . For more details please see separate cardiac stress test report. FINDINGS: QUALITY OF STUDY: Excellent. PERFUSION DEFECT: None. LOCATION: N/A SIZE: N/A. SEVERITY: N/A. TYPE: N/A. WALL MOTION: Normal. LV SIZE: Normal. 43 mL. TID / TCD: None; 0.6 LVEF: Normal. Calculated EF 89%. SUMMARY: Myocardial perfusion imaging study is NORMAL. CONCLUSION: 1. No reversible ischemia 2. Pending exercise test results Dictated by: Burton Zuñiga MD on 11/24/2023 at 15:30 Approved by: Burton Zuñiga MD on 11/24/2023 at 15:31
== END 2023-11-23 08:28 | disposition home or self-care (01) ==
LOC: NM 08:28
PROVIDERS: PCP Internal Medicine; Visit Provider Nurse Practitioner Family
DX: I48.0 Paroxysmal atrial fibrillation (principal); R94.31 Abnormal electrocardiogram [ECG] [EKG]
CPT/HCPCS: 78452; 93017; A9500

== ENCOUNTER 2023-12-06 14:32 | Outpatient (OUT) | payer MEDICARE, SELFPAY ==
--- OUTSIDE RECORDS SUMMARY | 2023-12-06 14:53 | XMS_ITS | CCD ---
Author Organization [facility] Care Team Providers Care Crude Tester Name Role Phone DIONY ., DR DOBBS [...] Unavailable HOY ., DR DOBBS Attending Unavailable RYE, DR RAFIQ [employer] Unavailable LEAH SEALS [...] DR DOBBS Primary Care Unavailable RAFIQ SEALS Consulting Unavailable MYRA LEUNG Attending Unavailable MYRA LEUNG Admitting Unavailable DIONY ., DR DOBBS Primary Care Unavailable MYRA LEUNG Consulting Unavailable Broderick Solomon Unavailable KATE BRODERICK Attending Unavailable KATE BRODERICK Attending Unavailable TURNER HARDING Admitting Unavailable TURNER HARDING Attending Unavailable TURNER HARDING Attending Unavailable PRETTY ALEMAN Attending Unavailable Allergies Allergy Classification Reported Allergen(s) Allergy Type Date of Onset Reaction(s) Facility (1 source) Sulfonamides (Antibiotic) Drug allergy (disorder) 09-01-19 21 [facility] Repository (1 source) Sulfamethoxazole / Trimethoprim Drug Allergy NAILS TURNED PURPLE [employer] Other (1 source) Ciprofloxacin; 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: [CIPROFLOXACIN] Drug Allergy 11-24-19 [facility] Repository (1 source) levoFLOXacin; 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: [LEVOFLOXACIN] Drug Allergy 11-24-19 [facility] Repository (1 source) Sulfonamides (Antibiotic); 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: [SULFA (SULFONAMIDE ANTIBIOTICS)] Propensity to adverse reactions to drug (disorder) 12-03-19 [facility] Repository Medications Current Medications Medication Drug Class(es) [...] atrial fibrillation; 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: [Paroxysmal atrial fibrillation] Onset: 11-05-2023 Chronic Cardiac dysrhythmias (5 sources) Palpitations; 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: [...] Onset: 08-25-2022 Chronic Other aftercare (1 source) [facility] (current) use of anticoagulants; 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: [CARE HOME CURRNT USE ANTICOAGULANTS] Onset: 08-18-2022 Episodic Other aftercare (1 source) Other assisted (current) drug therapy; 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: [OTH CARE HOME CURRENT DRUG THERAPY] Onset: 08-18-2022 Episodic Other [...] Test Name Value Interpretation Reference Range Facility Orders Onlyon 11-25-2023 Orders Only [id number] Sharri Cooney 1950 Date Provider Department Center 11/25/2023 [id number], HISTORICAL CARD [facility] No family history on file Normal [facility] NURSNOTEon 11-24-2023 NURSNOTE RN educated pt on d/c instructions. RN encouraged pt to voice any questions or concerns. Pt verbalizes no questions or concerns at this time. Pt was walked off of unit with all of belongings. Normal [facility] Office Visiton 11-03-2023 Follow-up visit [id number] Sharri Cooney 1950 Date Provider Department Center 11/03/2023 [facility] CARD [facility] No family history on file Level of Service:90443 [place] OFFICE/OUTPATIENT ESTABLISHED LOW MDM 20 MIN Reason for Visit and Comments: Follow-up [433452] Atrial Fibrillation [80] [facility] 36on 10-29-2023 36 I ordered a stress test for her along with increased metoprolol and Kcl. Also started mag oxide. Please send stress to [facility]. Please call patient and schedule her an appt with Dr. Harding at his soonest available. He said if she really wants to get in MALIK with him he can see her at [facility] next week while he is on Med . Thanks! [facility] Telephoneon 10-29-2023 Telephone [id number] Sharri Cooney 1950 F Date Provider Department Center 10/29/2023 PRETTY GALLAGHER Faby . No family history on file [facility] Office Visiton 10-28-2023 Follow-up visit [id number] Sharri Cooney 1950 Date Provider Department Center 10/28/2023 PRETTY GALLAGHER Pankaj [facility] No family history on file Level of Service:35455 [place] OFFICE/OUTPATIENT ESTABLISHED MOD MDM 30 MIN Reason for Visit and Comments: Atrial Fibrillation [80] Palpitations [113388] [facility] Office Visiton 06-04-2023 Follow-up visit [id number] Sharri Cooney 1950 Provider Department Center 06/04/2023 KATE WHITTEN No family history on file Level of Service:99248 [place] OFFICE/OUTPATIENT ESTABLISHED MOD MDM 30-39 MIN [facility] COVID/FLU RT-PCRon 3 SARS-CoV-2 (COVID-19) RNA VERONICA+probe Ql (Unsp spec) Positive [employer] Other COVID/FLU RT-PCR Negative [employer] Other Office Visiton 12-30-2022 Follow-up visit [id number] Sharri Cooney 1950 Date Provider Department Center 12/30/2022 KATE WHITTEN [facility] No family history on file Level of Service:84567 [place] OFFICE/OUTPATIENT ESTABLISHED MOD MDM 30-39 MIN Reason for Visit and Comments: Follow-up [641091] - Yearly visit- ER sodium mag and potassium low. Wasn't admitted just in ER. No issues since being out Normal [facility] SGOTon 10-23-2022 AST [Catalytic activity/Vol] 45 U/L Critically high 15-37 [facility] Comment on above: Performed By: #### A LT, AST #### [facility] [address] [place] [address] Dr. Fred Jackson [facility] 10-23-2022 ALT [Catalytic activity/Vol] 48 U/L Normal 14- [facility] Comment on above: Performed By: #### A LT, AST #### [facility] [address] [place] [address] Dr. Fred Jackson [facility] 09-10-2022 AST [Catalytic activity/Vol] 40 U/L Critically high - [facility] Comment on above: Performed By: #### A LT, AST #### [facility] [address] [place] [address] Dr. Fred Jackson [facility] 09-10-2022 ALT [Catalytic activity/Vol] 52 U/L Normal - [facility] Comment on above: Performed By: #### A LT, AST #### [facility] [address] [place] [address] Dr. Fred Jackson XR DEXA BONE DENSITYon 08-25 XR DEXA BONE DENSITY DEXA Bone Density Study CLINICAL: Evaluate bone mineral density. Postmenopausal COMPARISON: FINDINGS: The bone density study was assessed by dual-energy x-ray absorptiometry with the [employer] scanner. The test results are expressed in [...] by: RAFIQ SEALS Date: 2022-08-25 09:50 Normal [facility] BNPon 08-16-2022 Natriuretic peptide B (Bld) [Mass/Vol] 87.0 pg/mL Normal <=900.0 [facility] Comment on above: Performed By: #### T SH, CMP, BNP, CMADM ####[facility] [address] [id number]. Fred Jackson CARDIAC JASSI ADMITon 023 CK [Catalytic activity/Vol] 152 U/L Normal 26-192 [facility] Comment on above: Performed By: #### T SH, CMP, BNP, CMADM ####[facility] [address] [address]DrCaroline Jackson CK.MB [Mass/Vol] 2.96 ng/mL Normal <=3.60 [facility] Comment on above: Performed By: #### T SH, CMP, BNP, CMADM ####[facility] [address] [address]DrCaroline Jackson HSTROP 6.1 pg/mL Normal 4.0-51.3 [facility] Comment on above: Result Comment: CUT- OFF POINTS HAVE BEEN ESTABLISHED BASED ON THE FOURTH UNIVERSAL DEFINITIONS OF MYOCARDIAL INFARCTION. THE UPPER REFERENCE LIMIT (URL) OF TROPONIN, DEFINED THE 99TH PERCENTILE OF cTnI DISTRIBUTION IN A REFERENCE POPULATION, HAS BEEN CONFIRMED THE DECISION THRESHOLD FOR SD DIAGNOSIS. Performed By: #### T SH, CMP, BNP, CMADM ####[facility] [address] [address]Dr. Fred Jackson ANGELI 80 ng/mL Normal 9-82 [facility] Comment on above: Performed By: #### T SH, CMP, BNP, CMADM ####[facility] [address] [address]Dr. Fred Jackson CBC AUTO DIFFon 08-16-2022 BASO # 0.1 103/ul Normal 0.0-0.1 [facility] Comment on above: Performed By: #### C BC #### [facility] [address] [place] [address] Dr. Fred Jackson Basophils/100 WBC (Bld) 1.4 % Normal 0.2-2.0 [facility] Comment on above: Performed By: #### C BC #### [facility] [address] [place] [address] Dr. Fred Jackson EO # 0.3 103/ul Normal 0.0-0.7 [facility] Comment on above: Performed By: #### C BC #### [facility] [address] [place] [address] Dr. Fred Jackson Eosinophils/100 WBC (Bld) 3.1 % Normal 0.9-7.0 [facility] Comment on above: Performed By: #### C BC #### [facility] [address] [place] [address] Dr. Fred Jackson Erythrocyte distribution width (RBC) [Ratio] 12.0 % Normal 11.0-15.0 [facility] Comment on above: Performed By: #### C BC #### [facility] [address] [place] [address] Dr. Fred Jackson Hematocrit (Bld) [Volume fraction] 40.5 % Normal 36.0-48.0 [facility] Comment on above: Performed By: #### C BC #### [facility] [address] [place] [address] Dr. Fred Jackson Hemoglobin (Bld) [Mass/Vol] 13.8 g/dL Normal 12.0-16.0 [facility] Comment on above: Performed By: #### C BC #### [facility] [address] [place] [address] Dr. Fred Jackson IG # 0.06 10e3/ul Critically high 0.00-0.03 [facility] Comment on above: Performed By: #### C BC #### [facility] [address] [place] [address] Dr. Fred Jackson IG % 0.6 % Critically high 0.0-0.5 [facility] Comment on above: Performed By: #### C BC #### [facility] [address] [place] [address] Dr. Fred Jackson LYMPH # 3.8 103/ul Normal 1.2-3.8 [facility] Comment on above: Performed By: #### C BC #### [facility] [address] [place] [address] Dr. Fred Jackson Lymphocytes/100 WBC (Bld) 36.6 % Normal 20.5-60.0 [facility] Comment on above: Performed By: #### C BC #### [facility] [address] [place] [address] Dr. Fred Jackson MANUAL DIFF REQ NO Normal [facility] Comment on above: Performed By: #### C BC #### [facility] [address] [place] [address] Dr. Fred Jackson MCH (RBC) [Entitic mass] 31.2 pg Normal 26.7-34.0 [facility] Comment on above: Performed By: #### C BC #### [facility] [address] [place] [address] Dr. Fred Jackson MCHC (RBC) [Mass/Vol] 34.1 g/dL Normal 29.9-35.2 [facility] Comment on above: Performed By: #### C BC #### [facility] [address] [place] [address] Dr. Fred Jackson MCV (RBC) [Entitic vol] 91.6 fL Normal 81.0-99.0 [facility] Comment on above: Performed By: #### C BC #### [facility] [address] [place] [address] Dr. Fred Jackson MONO # 1.2 103/ul Critically high 0.3-0.8 [facility] Comment on above: Performed By: #### C BC #### [facility] [address] [place] [address] Dr. Fred Jackson Monocytes/100 WBC (Bld) 11.3 % Normal 1.7-12.0 [facility] Comment on above: Performed By: #### C BC #### [facility] [address] [place] [address] Dr. Fred Jackson NEUT # 4.9 103/ul Normal 1.4-6.5 [facility] Comment on above: Performed By: #### C BC #### [facility] [address] [place] [address] Dr. Fred Jackson Neutrophils/100 WBC (Bld) 47.0 % Normal 43.0-75.0 [facility] Comment on above: Performed By: #### C BC #### [facility] [address] [address] [address] Fred Jackson Platelet mean volume (Bld) [Entitic vol] 8.9 fL Critically low 9.5-13.5 [facility] Comment on above: Performed By: #### C BC #### [facility] [address] [address] [address] Fred Jackson PLT 404 103/ul Normal 150-450 [facility] Comment on above: Performed By: #### C BC #### [facility] [address] [address] [address] Fred Jackson RBC 4.42 106/ul Normal 4.20-5.40 [facility] Comment on above: Performed By: #### C BC #### [facility] [address] [address] [address] Fred Jackson WBC 10.3 103/ul Normal 4.0-11.0 [facility] Comment on above: Performed By: #### C BC #### [facility] [address] [address] [address] Fred Jackson PROF 14(COMP METB)on 023 Albumin [Mass/Vol] 4.3 g/dL Normal 3.4-5.0 [facility] Comment on above: Performed By: #### T SH, CMP, BNP, CMADM ####[facility] [address] [address]Dr. Fred Jackson Albumin/Globulin [Mass ratio] 1.2 {ratio} Normal [facility] Comment on above: Performed By: #### T SH, CMP, BNP, CMADM ####[facility] [address] [address]Dr. Fred Jackson ALP [Catalytic activity/Vol] 96 U/L Normal 46-116 [facility] Comment on above: Performed By: #### T SH, CMP, BNP, CMADM ####[facility] [address] [address]Dr. Fred Jackson ALT [Catalytic activity/Vol] 34 U/L Normal 14-59 [facility] Comment on above: Performed By: #### T SH, CMP, BNP, CMADM ####[facility] [address] [address]Dr. Fred Jackson Anion gap [Moles/Vol] 16.6 mmol/L Normal [facility] Comment on above: Performed By: #### T SH, CMP, BNP, CMADM ####[facility] [address] [address]Dr. Fred Jackson AST [Catalytic activity/Vol] 39 U/L Critically high 15-37 [facility] Comment on above: Performed By: #### T SH, CMP, BNP, CMADM ####[facility] [address] [address]Dr. Fred Jackson Bilirubin [Mass/Vol] 0.8 mg/dL Normal 0.2-1.0 [facility] Comment on above: Performed By: #### T SH, CMP, BNP, CMADM ####[facility] [address] [address]Dr. Fred Jackson Calcium [Mass/Vol] 10.1 mg/dL Normal 8.5-10.1 [facility] Comment on above: Performed By: #### T SH, CMP, BNP, CMADM ####[facility] [address] [address]Dr. Fred Jackson Chloride [Moles/Vol] 91 mmol/L Critically low 98-107 [facility] Comment on above: Performed By: #### T SH, CMP, BNP, CMADM ####[facility] [address] [address]Dr. Fred Jackson CO2 [Moles/Vol] 25.5 mmol/L Normal 21.0-32.0 [facility] Comment on above: Performed By: #### T SH, CMP, BNP, CMADM ####[facility] [address] [address]Dr. Fred Jackson Creatinine [Mass/Vol] 0.95 mg/dL Normal 0.55-1.02 [facility] Comment on above: Performed By: #### T SH, CMP, BNP, CMADM ####[facility] [address] [address]Dr. Fred Jackson EGFR-AF LATVIAN >60 Normal >=60 [facility] Comment on above: Performed By: #### T SH, CMP, BNP, CMADM ####[facility] [address] [address]Dr. Fred Jackson EGFR-NON AF LATVIAN 58 mL/min/1.73m2 Critically low >=60 [facility] Comment on above: Performed By: #### T SH, CMP, BNP, CMADM ####[facility] [address] [place], [place] [address]Dr. Fred Jackson Globulin (S) [Mass/Vol] 3.6 g/dL Normal [facility] Comment on above: Performed By: #### T SH, CMP, BNP, CMADM ####[facility] [address] [place], [place] [address]Dr. Fred Jackson Glucose [Mass/Vol] 116 mg/dL Critically high 74-106 [facility] Comment on above: Performed By: #### T SH, CMP, BNP, CMADM ####[facility] [address] [place] [address]Dr. Fred Jackson Potassium [Moles/Vol] 3.1 mmol/L Critically low 3.5-5.1 [facility] Comment on above: Performed By: #### T SH, CMP, BNP, CMADM ####[facility] [address] [place] [address]Dr. Fred Jackson Protein [Mass/Vol] 7.9 g/dL Normal 6.4-8.2 [facility] Comment on above: Performed By: #### T SH, CMP, BNP, CMADM ####[facility] [address] [place] [address]Dr. Fred Jackson Sodium [Moles/Vol] 130 mmol/L Critically low 136-145 [facility] Comment on above: Performed By: #### T SH, CMP, BNP, CMADM ####[facility] [address] [place] [address]Dr. Fred Jackson Urea nitrogen [Mass/Vol] 17.0 mg/dL Normal 7.0-18.0 [facility] Comment on above: Performed By: #### T SH, CMP, BNP, CMADM ####[facility] [address] [place], [place] [address]Dr. Fred Jackson Urea nitrogen/Creatinin e [Mass ratio] 17.9 mg/mg Normal [facility] Comment on above: Performed By: #### T SH, CMP, BNP, CMADM ####[facility] [address] [place], [place] [address]Dr. Fred Jackson PROTIMEon 08-16-2022 INR Coag (PPP) [Relative time] 1.01 {INR} Normal [facility] Comment on above: Performed By: #### P TT, PT ####[facility] [address] [place], [place] [address]Dr. Fred Jackson INR GUIDELINES SEE BELOW Normal [facility] Comment on above: Result Comment: DOTTY RED INR: 2.0 - 3.0 CONDITIONS NOT LISTED BELOW 2.5 - 3.5 FOR PROSTHETIC HEART VALVE REPLACEMENT 2.5 - 3.5 RECURRENT THROMBOSIS Performed By: #### P TT, PT ####[facility] [address] [place], [place] [address]Dr. Fred Jackson PT Coag (PPP) [Time] 10.7 s Normal 9.0-11.6 [facility] Comment on above: Performed By: #### P TT, PT ####[facility] [address] [place], [place] [address]Dr. Fred Jackson PTTon 08-16-2022 aPTT Coag (Bld) [Time] 33.9 s Normal 22.3-36.2 [facility] Comment on above: Performed By: #### P TT, PT ####[facility] [address] [place], [place] [address]Dr. Fred Jackson TROPONIN, HIGH SENSITIVITYon 08-16-2022 HSTROP 15.1 pg/mL Normal 4.0-51.3 [facility] Comment on above: Result Comment: CUT- OFF POINTS HAVE BEEN ESTABLISHED BASED ON THE FOURTH UNIVERSAL DEFINITIONS OF MYOCARDIAL INFARCTION. THE UPPER REFERENCE LIMIT (URL) OF TROPONIN, DEFINED THE 99TH PERCENTILE OF cTnI DISTRIBUTION IN A REFERENCE POPULATION, HAS BEEN CONFIRMED THE DECISION THRESHOLD FOR SD DIAGNOSIS. Performed By: #### H STROPN #### [facility] [address] [place], [place] [address] Dr. Fred Jackson TSHon 08-16-2022 TSH 4.364 uIU/mL Critically high 0.358-3.740 [facility] Comment on above: Performed By: #### T SH, CMP, BNP, CMADM ####[facility] [address] [place], [place] [address]GcDr. Fred Jackson XR CHEST 1 Von 08-16-2022 [...] DALI MYERS Date: 2022-08-16 00:02 Normal [facility] Covid-19 PCR (CVDTBH)on 03-06 SARS-CoV-2 (COVID-19) RNA VERONICA+probe Ql (Unsp spec) Detected Critically abnormal NOT DETECTED [facility] Comment on above: Result Comment: This test is not yet approved or cleared by the [place] FDA. When there are no FDA-approved or cleared tests available, and other criteria are met, FDA can make tests available under an emergency access mechanism called an Emergency Use Authorization (EUA). The EUA for this test is supported by the [place] of Health and Human Service's (HHS's) declaration [...] longer be used). Performed By: #### C [facility] ####[facility] [place], [place] [address]Zh. Fred Jackson US CAROTID ART BILon 022 [...] by: TIFFANIE LEON Date: 2022-03-12 14:51 Normal [facility] MAMM SCREEN 3D JASMEET CADon 02-09-2022 MG MAMM SCREEN 3D JASMEET CAD Patient: SHARRI COONEY Exam Date: 02/09/2022 : 1950 Gender:F Ordering : DR RINKU PETERSON . Admission #: [id number] Family : Order #: [id number] CLICK HERE TO VIEW EXAM RADIOLOGY REPORT [...] prostate cancer at age 60. LOCATION: [facility] BREAST COMPOSITION: Heterogeneously dense,which may [...] Zuñiga MD on 02/09/2022 at 09:50 Normal [facility] Coding Summary.on 03-12-2021 Coding Summary. CD:[id number] Gh0bWw+PGhlYWQ+PE1FV XRlF39deDRvcH7UY6aGJ D4IQYRPPOLWWQ7UZO1jn RV9EBczN0QiozFj RnyieCAsHU20NIr7CFL8 zAsxOPexbM0ruWZcJ9o3 SmJqIQ74aU66NNtfANCw ZwY0XyLlnmaqfOSe D1itKjDsmMXqDwj+PHRh YmxlIHdpZHRoPScxMDAl PsVzpDweDK1pHj7hQBDi LWNvbGxhcHNlOiBj e4ovDHMiQNwaSY7rnGrn K8OsnPI6THPdf9a4Bu62 dHI+ZHYyNRZ4rBuoNTbu k748FnKad2moDWD1 iFXtXSeoEKC5C85sn9M0 SORqCMYbXIF9oEO9nM5j jVhxcgarB0WbtICzZdV0 CVN9kSGlaM8dmBxq noimmY6cNbj+B39LDO8L ALUTCD0ISep6V0BwLcod dHI+UO61BSMbIZ75uDAp hFYtf5hnsQy2IwHc TQFiGZN8fEqjANvhp3Mw KOQpR88hmWVid1Y3NCTo bSieyCKcGiUxjZS7mT7i BVwprerch2hxcfrh Gvwog4wtia80xM04E83m CSzuPYMsIXI9SYYdCLUk xYjeaw7wqW5wLq5+IDxj x6emg0iuoCe2SsSx UUBfjbPoyFcsUVJ8j4Ve Lb23V9YtjHmes0JxMkg0 wf28vHHqv5C6mBM4CBas YWExrH9kIIvaVqW9 DZSfFjKxjV67hESuQNde Kv3jyOcezQllER6rETEo aqzrSRQvxU5sBTCicLDg gLboCN2xCHIitdio n162VqUiHJS4GVRadPEz Y4PyeL4jBeGzCWYyPMSc P6UvtPItQDaqB806JKlz OwG8WLWculXcO1Lo VWJwoTkpCbI0c7N3Jw5C i9QrylbhOHC4UMuoMPA7 CcM8VsIhXkO4P8VbZsw7 LICqgVuhQF8wQ1Qc PLTzwypkyhbxbTD0GAMb GVZeeP90uAKiSNvqKt1t f0X8y221EOExZVZpzE69 Cp3dgSspTLKstYNA aK7yqidbw4gyszcfDbPv RUPhISa9LGh8IFDqlEsg WjLsXEH3XcG6IZZ8lMVb qV3scLubrofvcA4v Oyc+F71wcO1aSHV5GZN5 kqcvRNLkioRxIL45KB57 D9GrBubcwIYjdLB+PGRp ojJchCxaAC0vBdCk n5ntd2CmULbvC3RcIZVu DFkhYve1FRMrPUY6nOM9 jE7yEDBwSWbmj3P3vDB9 I6ZjcuXlzg4ae7bm XNZhLDxbH14eoWTwu3D5 FNExbHK7WYQnlBwzHjJd lZ58Myz+TUEvrQbpm3El Jcssv4tpk1sorGn2 IjMwJSIgdmFsaWduPSJ0 z3JaSx50Z01fDMdtZGRv PEQuPXYiRYHzpJinuw9q lV0wYd7+PGNvbCB3 eCQ4cV2dSGPqZlZ7QYbr I452KdTdeJRoCjfvu5yu z0pepAi1RdIsMSRqcnRq bLjiRKL8f0WhGf00 N16zXWymQDBxLDPvULJw QIDzeAlvjz4fhM6nJx1+ AG8rn2uxyk11uH03dEN+ AAIvLLM7eEzrUQio JJFzoZ0fCJmsHhZ5QROs CsPpaS85eYXkSLezPc6x uVndmZhwOV7jFPTbqrnc w518EnXyc2zdRZOt uDLqTLrpFOZ9J51yo3W6 BWKbRTEeKUU2wXZ0pI1a bGlnbjogbGVmdDsgdmVy cRtaAIzcYWuaA399 IHRvcDsnPlBhdGllbnQg OzXwYMx0Y2UqPfq0MSBf zPldBK2zaNSgXWziXw1v bXeimQzxRR5vNWIu uegve808XcAkb7tdASGq kQMtIYjdUYO4K17ay3L9 FCVuPXLkQCD5pBZ8iB8j bGlnbjogbGVmdDsg xaXpdMwlSEkrIGiaA223 IHRvcDsnPkJpcnRoIERh tYJ0HL93SO93iRXvt3O2 nUR2J8ZjNRXcdzeu fatxpXB6RUOvYRXabF40 Nq5loXnoRt6lEJXvZMM9 LCDmrREiO6AgyJ2hSeGa UUFzBUIdT6VluJGz YLlhQ012IMjoSmV1ZJJv foDnE0JgSGIdxNuoSiA1 n5D3Wp3NO9J0OJ98AT92 uGBki3R3xTV3I3Zr WZQyzvrbpopvmKY2JNEt DZYzhY70Cq3dnKgzSt7j BTCqLVO6OFKzaZDmV8Ah sU0fLsOcZYUsLVIt Q6AyzPAdHChqE735YGkl QqW4WQEbhtYvF6DrJUAv cJmeYmP7t4Z6Md9NXZn1 HQ29ZX47iJOyh8Q6 qWJ7U7JrJWQmepivfgci vCN3OALyENVmlT15Ci8e zUznIa2xNSXhDIC7JXEq vLHeH2KusX4eIfNx INQgJPOkT6RlfKTyTWhd N768QLllCoB7WXBuqrGx I9BdTXElsZpjTjA3a9S1 Pq7VGIKkYE36ARQ2 fQA5VJ74CX69I6OqFvtl dGFibGU+PHRhYmxlIHdp ZHRoPScxMDAlJyBzdHls NL6rZu6pKRUeDOCu zKtsxYGcPvUre0czZOWd NQwrWP7rlFlqB8XvqQX3 YBWnv7y6Bn36M76sU5Cx dXA+CIKuiWF6aAV9 xE2jCjAaKdZ1LNliK817 IxTuyFNqGjagu9usp7wk nPq0UjE0WWEonySewQjn FDQ2h1RbZk93K05n IHdpZHRoPSIxNSUiIHZh uDgmfk5otI4tYj8+PGNv pWV6rIA3aI7yBrFcOsQ4 NYhdV584PmPciETl Hpprh0njx6ubeVu7ZvHs CPKlgwRkgHnuAZP3f4Xq Tl67S8ZjyRxjs0MsGhu3 oa38qBCgk0K0oTS7 Z8OsVMWhrquydWAsfOxd CD0wMLCcydlyVRGvuF5w XOGaM9c3OfHjVaG4SExr W1CyfgB0FSZmxZXa OWxpORD4Z17qx6U1ZSJx JXHgNQE4vYO3fZ6huJko bjogbGVmdDsgdmVydGlj JCkmEJxsI502WJIe uReqEDLlcN8nWWMkpQYf bRyhDY9kMQHtfefrHwZQ UlJPTEwsIFNVWkFOTkU8 M8LjLbt7KLXdoHuy DC7tyBDvYKipWr8vjBtc gYjmWI0lHSQnkpboSSDy nW8oWNKexAGusTcjIS9e TUKqgywom221NzYs KXL1ANGfoJUfQ2KizV4n RoSwFVLjAZBzN2PaqZZq NBikL658SKahNmP4TMQv vqIfA5DwGGZvkJjr XeV5d9L5Eu9hPe7nDE3j QZJqAB98PB51kXOex4W8 sJJ1F2AyZEXpnbudgcia iUR9ZEEsMJRakC35 fRSmONorEa1vz6N7y029 KRLsJGJemH59Ah2jaLhb ERAjfAVFvK6fkdccf5md cjogIzAwMDAwMDt0 PNr3LSJgnLtvCePlQRM5 WpP7CKJ9rUHcoA7hqRda rzzkiM1fUet+NjggWWVh skQ8X4PvJug4LYTp eKpyLZ0tbIUiJTzuXa3c qUojsYzmOJ6qVYBkzdpa EIUeyQ3rDVNorMWzbJxm DO7hMZOyplznr308 VbWeVEJ2GOJpxKSpH4Xp aG6fZuKgXUAnGIVwE8Yl lJBiSYtbH921OPfnMgE4 KIKevwPhH5FzMCVq zKhnFcJ3k5M3Pt6YMX4d wLH0Y6QwRxr9FFEifMmq PT0cdISjNArxBb5oqFki kIjfRD3cGEYwqvrd TLQbaI9cSONlxQLvdXmn MR5xMAGtueios987NyHh YON3LVDuzGYiG3BckG9x OyIuTBLuZVMpB0Fz rBFqLIjpR511IMspYqE1 BSVdvhMvM4GoWYWkrLlx AoH5o1O4Qg4JDWNaFMFy bGNjLwM0Y8ObJujz dHI+KE23RYTbFG76oWNh iEDec7xjgCf7UaVaXKZw IBB5iKebITmie9FlNWMg R77wiIIsz0P7SDUl jQqpaQLfWgTqbIZ5lK9i HMizjilcz5itrgjhHdcr n2zqkc06tO64L42aLPji ZHRoPSIzMCUiIHZh yKrsta5jdO9xSz5+PGNv rTU1dXD5aX3bIbSsRvL4 LKyhS578JoIliBWwMuxf i3rhw2wxcZk3IuUl MYIpuhCfmCiqTXK2o2Pk Uj95W35dLBrnSXTrHHYl NIXeHODjfXpsul0bqW9o Ii8+EC9mt8wdmo92 eO17jWE+COVsSHT9iBjn UVcoZCMwpV0cZTteAeF6 GEBhAwHxfO22wNSbFHsl Bt3ywFfnzTocUV4p ABFnblnst230UuPdl1oa LXUzbONxZZqdWNV0R10y r1D1NKQaFBGeHUU9eFH5 aJ8dpVkjncykaAMm dDsgdmVydGljYWwtYWxp W788MXDzoBrqRaQywGWs U1megiYHJA1qZxdvnHZ+ FUZgOVJ2yHbmYLwm VCUzqS0yCFSsW8r8TjHb OeB5UWjoG9FkneR5JIQz nNNqENKhoKNDiT3szjfa y4ajdcqrRoZtCDTw YOp5UYc6FXMbaJvgXpJi KQF5YvP5NBD8nYYhcQ9i cOjkdpxnrU9bSwd+RklO OjwvdGQ+PHRkIHN0 jBulAPbjKTZjxV6jXUAz U8u0YoJaVzD6ZNbmL8Nd joV9HKOrwBLrJTAckRUK gP3hhrhhe8luxhcc VsOeSIZdRDv8MNd9LZFb zDyqJnSrLUR0HpR1KXJ0 rVPhhI7dzWijccivtN5h Oyc+TVJOOjwvdGQ+ PNGwZVU3yKnkRXleDLEv lW0nPNDoI0x7BdApCiJ6 RUgcP0RpxeV9CTVgrTYo EDEudRGDyV9bnkqt d7duinviSjKnBUNeLTr8 RXw7LMElyHlgZsNiNRD1 WfF3GLF5kVOvhT6pbGia gwsocQ3lEdd+UGF5 VZX8HT10OG18L3HoUmpr dGFibGU+PHRhYmxlIHdp ZHRoPScxMDAlJyBzdHls HZ7oFm0dXCTwVZGo bGxh (more content not included)... Normal [facility] Physician Orderon 02-19-2021 Physician Order [id number] Normal [facility] Vital Signs Date Time Vital Sign Value Performing Clinician Facility 04-22-2023 12:20-0400 Body height 153.67 cm Broderick Solomon Other [facility] Other 04-22-2023 12:20-0400 Body mass index (BMI) [Ratio] 24.58 kg/m2 Broderick Solomon Other [facility] Other 04-22-2023 12:20-0400 Body temperature 98.3 [degF] Broderick Solomon Other [facility] Other 04-22-2023 12:20-0400 Body weight 58.06 kg Broderick Solomon Other [facility] Other 04-22-2023 12:20-0400 Respiratory rate 18 /min rBoderick Solomon Other [facility] Other 04-22-2023 12:20-0400 SaO2% (BldA) [Mass fraction] 96 % Broderick Solomon Other [facility] Other Encounters Encounter Date Encounter Type Care Provider Facility Start: 11-24-2023 End: 11-24-2023 ambulatory [facility] Start: 11-03-2023 ambulatory [facility] Start: 10-28-2023 End: 10-28-2023 ambulatory [facility] Start: 06-04-2023 End: 06-04-2023 ambulatory [facility] Start: 04-22-2023 End: 04-22-2023 ambulatory Broderick Solomon Other [facility] Other Start: 04-22-2023 Office outpatient vi sit 15 minutes Broderick Solomon [facility] Start: 12-30-2022 End: 12-30-2022 ambulatory [facility] Start: 10-23-2022 End: 10-24-2022 ambulatory LEAH [...] Immunizations Immunization Date Immunization Notes Care Provider Fa cilipankaj 12-19-2016 tetanus toxoid, reduced diphtheria toxoid, and acellular pertussis vaccine, adsorbed Broderick Solomon Other [facility] Other Payers Date Payer Category Payer Medicare [id number] 1950 Unknown [id number] 2.16.84 [id number] 1950 Unknown [id number] 2.16.84 [id number] 1950 Unknown [id number] 2.16.84 [id number] 1950 Unknown [id number] 2.16.84 [id number] 1950 Unknown [id number] 2.16.84 [id number] 1950 Unknown [id number] 2.16.84 [id number] 1950 Unknown [id number] 2.16.84 [id number] Social History Date Type Detail Facility Unknown if ever smoked [facility] Other Sex Assigned At Sex Assigned At Bir th [facility] Other Clinical Notes 12-30-2022 to 11-25-2023 Note Date & Type Note Facility 11-25-2023 Note EKG portion was posi tive for inferior ischemia. Nuc imaging was negative for ischemia. Her sx's are dyspnea. We are looking to start flecanide for her for her a.fib. Should we proceed with cath or coronary CTA? Thanks! [facility] 11-25-2023 Note Do we have the exerc ise portion results? [facility] 11-25-2023 Note FYI - I made patient aware that we will proceed with coronary angiogram. I placed the orders but EPIC is being EPIC and won't let me close the encounter so working with IT on this. Thx [facility] 11-24-2023 Note LOOP IMPLANT PROCEDU RE NOTE DATE OF PROCEDURE: 11/24/23 PERFORMING PHYSICIAN: Dr. Turner Harding GLOBAL SOURCING MANAGER: NA INDICATIONS FOR PROCEDURE: 1. SVT/AF surveillance CONSENT: Patient LOCATION: EP lab PROCEDURAL SEDATION: None FLUOROSCOPY TIME: 0min PREPARATION: Preoperative antibiotics was administered. EBL: 5cc SPECIMEN REMOVED: None PROCEDURES PERFORMED: 1. LOOP implant PROCEDURE NOTE: Patient was brought to the EP lab in the post absorptive state. A procedural pause was performed verifying the patient, the procedure. Sterile prep and drape were performed over the left precordium and anesthesia with 1% lidocaine was followed by a small incision was made in the 3rd intercostal space near the sternum on the left using the [employer] tool. The loop recorder was then injected subcutaneously and noted to have good sensing parameters. Technical details of the device as noted below. The skin was then closed with 3-0 absorbable monofilament suture and glue applied to hold the edges together. Tegaderm was applied to cover the wound. The patient appeared to tolerate the procedure well and was returned to the room in stable condition. No complications were immediately observed. Sensin.31 mV. IMPRESSION: Successful placement of LOOP implant with excellent sensing parameters. COMPLICATIONS: None RECOMMENDATIONS: 1. Occlusive dressing to be changed after 7 days. 2. Do not wet the incision. Turner Harding MD Cardiac Electrophysiology. [facility] 11-03-2023 Note [facility] Electrophys[facility] Consult Note Reason for visit: 6 month follow up, PAF/MR/HTN/HLD 11/03/23 Pt has been feeling palpitations and wants to proceed with LOOP. 06/04/23: She is here for 6-month follow-up she has been feeling well with no complaints of chest pain, shortness of breath, HERNANDEZ, LE edema. she had TTE 01/2023 which showed mildly [...] previously but patient continues to not be interested. She continues to take Eliquis 5 mg twice daily and tolerating well with no concerns for bleeding symptoms or signs patient was recently seen in [place] [facility] 08/2022 for palpitations. She was found to be in sinus tach with PACs which resolved with metoprolol. Her electrolytes were off and she was dehydrated. She had a 7-day Holter monitor per Dr. Peterson which did not reveal evidence of A-fib or arrhythmia. patient has not had any episodes since her ER visit she denies chest pain, shortness of breath, palpitations, lightness, dizziness, fatigue 08/2022 ECG by [facility]- appears to be sinus tach with [...] alcohol infrequently, no significant caffeine intake, no whqo-ekb-icqgran decongestions Family history: Her mother of a [...] alcohol infrequently, no significant caffeine intake, no fybz-las-xaijlob decongestions Family history: Her mother of a [...] Determinants of Health Tobacco Use: Low Risk (11/03/2023) Patient History Smoking Tobacco Use: Never Smokeless Tobacco Use: Never Passive Exposure: Not on file Alcohol Use: Not on file Financial Resource Strain: Not on file Food Insecurity: Not on file Transportation Needs: Not on file Physical Activity: Not on file Stress: Not on file Social Connections: Not on file Intimate Partner Violence: Unknown (08/26/2023) MD Safety & Environment Fear of Current or Ex-Partner: Not on file Emotionally Abused: Not on file Physically Abused: Not on file Sexually Abused: Not on file Physically or Sexually Abused: Not on file Depression: Not on file Housing Stability: Not on file U (more content not included)... [facility] 10-28-2023 Note MD Electrophysiology Consult Note Reason for visit: PAF/MR/HTN/HLD [...] or signs patient was recently seen in [place] [facility] 08/2022 for palpitations. She was found [...] palpitations, lightness, dizziness, fatigue 08/2022 ECG by [place]- appears to be sinus tach with [...] alcohol infrequently, no significant caffeine intake, no wixp-mzt-mugucho decongestions Family history: Her mother of a [...] alcohol infrequently, no significant caffeine intake, no usfq-cle-bvaqqej decongestions Family history: Her mother of a [...] Intimate Partner Violence (more content not included)... [facility] 10-28-2023 Note Patient here for [facility] ED for afib. Says she recently got [...] All other systems reviewed and are negative. [facility] 06-04-2023 Note MD Electrophysiology Consult Note Reason for visit: 6 [...] or signs patient was recently seen in [place] [facility] 08/2022 for palpitations. She was found [...] palpitations, lightness, dizziness, fatigue 08/2022 ECG by [place]- appears to be sinus tach with [...] alcohol infrequently, no significant caffeine intake, no fmgf-elx-fsjiagd decongestions Family history: Her mother of a [...] alcohol infrequently, no significant caffeine intake, no xqwm-big-gjvndya decongestions Family history: Her mother of a [...] PSH: No past surgical history on file. : Social Determinants of Health Tobacco Use: Low [...] (Eliquis) 5 m (more content not included)... [facility] 06-04-2023 Note Patient here for 6 m o follow up PAF, mitral valve regurgitation, and hypertension. She had an echo in January 2023. Says her BP has been running around 150/90, as she is always high strung this time of year . Denies chest pain, SOB, palpitations, lightheadedness, and bleeding on Eliquis. Review of Systems All other systems reviewed and are negative. [facility] 04-22-2023 Evaluation note Encounter Date Diagnosis Assessment [...] see your pcp. Take tylenol as needed. [facility] Other [id number] Note- history of mild regurgitation from echo 2020 - we will repeat echocardiogram to assess valvular regurgitation and LA size [facility]06-28-2023 Note- elevated today, she states this normally low - we will have her check her blood pressure 2-3 times a day for 1 week and send clinic the readings - continue Toprol-XL 50 mg daily, Zocor 10 mg daily, lisinopril-hydrochlorothiazide 10-12.5 mg dailyUnAs[facility]06[facility]-History of paroxysmal A-fib, recent ER visit does not look like she had A-fib - continue Eliquis 5 mg twice daily - [id number] at least 3 for age, gender, hypertension - continue metoprolol XL 50 mg daily - in the past she was on amiodarone for short-term, converted chemically and then amiodarone was discontinued - recent ER visit she had elevated [facility]UnAs[facility] 12-30-2022 NoteReview of Systems All other systems reviewed and are negative.[facility] 12-30-2022 NoteUT Electrophysiology Consult Note Reason for [...] or signs patient was recently seen in [place] [facility] 08/2022 for palpitations. She was found [...] palpitations, lightness, dizziness, fatigue 08/2022 ECG by [facility]- appears to be sinus tach with [...] alcohol infrequently, no significant caffeine intake, no xksj-vmk-cdaurmo decongestions Family history: Her mother of a [...] alcohol infrequently, no significant caffeine intake, no izmt-aro-wmalaho decongestions Family history: Her mother of a [...] tablet by mouth in (more content not included)...[facility] N[facility]ative - Reported* Type Description Date Medical History HTN Medical History HYPERLIPIDEMIA Medical History SHINGLES Medical History GUILLAIN-BARRE SYNDROME Medical History Afib Surgical History TUBALIGATION Surgical History EYE SURGERY Surgical History MACULAR HOLE Surgical History LUMP REMOVED FROM LEFT BREAST Surgical History bunionectomy Hospitalization History 3 CHILD BIRTHS Hospitalization History GUILLAIN-BARRE SYNDROME [facility] Other Summary Purpose Family History No Family History Records FoundNo Family History Records FoundNo Family History Records Found Advance Directives No Advanced Directives Records FoundNo Advanced Directives Records FoundNo Advanced Directives Records Found Additional Source Comments INFORMATION SOURCE (unrecogn ized section and content) DATE CREATED AUTHOR 03/13/[address] [facility] DATE CREATED AUTHOR AUTHOR'S ORGANIZ ATION [facility]/30/2022 [facility] DATE CREATED AUTHOR AUTHOR'S ORGANIZ ATION 12/02/2023 [facility] REASON FOR VISIT (unrecogniz ed section and [...] BE BASED ON THE PRIMARY CLINICAL RECORDS. [employer] provides no warranty or guarantee of the accuracy or completeness of information in this document.
[2023-12-06 15:01] LABS: Basophils Absolute Auto 0.1 10^3/uL (0.0-0.1); Basophils Percent Auto 1.3 % (0.2-2.0); Eosinophils Absolute Auto 0.1 10^3/uL (0.0-0.7); Eosinophils Percent Auto 2.2 % (0.9-7.0); Hematocrit 40.4 % (36.0-48.0); Hemoglobin 13.3 g/dL (12.0-16.0); Immature Granulocytes Abs Auto 0.03 10^3/uL (0.00-0.03); Immature Granulocytes Pct Auto 0.5 % (0.0-0.5); Lymphocytes Absolute Auto 1.1 10^3/uL (1.2-3.8); Mean Corpuscular HGB Conc 32.9 g/dL (29.9-35.2); Mean Corpuscular Hemoglobin 30.9 pg (26.7-34.0); Mean Platelet Volume 9.1 fL (9.5-13.5); Monocytes Absolute Auto 0.6 10^3/uL (0.3-0.8); Monocytes Percent Auto 10.2 % (1.7-12.0); Neutrophils Percent Auto 66.8 % (43.0-75.0); Platelet Count 328 10^3/uL (150-450); Red Cell Distribution Width 13.2 % (11.0-15.0)
[2023-12-06 19:28] LABS: Anion Gap 14.2; BUN Creatinine Ratio 18.7; Calcium 9.6 mg/dL (8.5-10.1); Carbon Dioxide 29.7 mmol/L (21.0-32.0); Chloride 100 mmol/L (98-107); Estimated GFR (African America >60 (>=60); Estimated GFR (Non-African Ame >60 (>=60); Glucose 90 mg/dL (74-106); Potassium 3.9 mmol/L (3.5-5.1); Sodium 140 mmol/L (136-145)
== END 2023-12-06 14:33 | disposition home or self-care (01) ==
LOC: LAB 14:34
PROVIDERS: PCP Internal Medicine; Visit Provider Nurse Practitioner Family
DX: R94.39 Abnormal result of other cardiovascular function study (principal)
CPT/HCPCS: 36415; 80048; 85025

== ENCOUNTER 2024-01-05 11:22 | Outpatient (OUT) | payer MEDICARE, SELFPAY ==
--- OUTSIDE RECORDS SUMMARY | 2024-01-05 11:28 | XMS_ITS ---
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 Name Role Phone DIONY ., DR DOBBS [...] Unavailable HOY ., DR DOBBS Attending Unavailable WINNETKA, DR RAFIQ [employer] Unavailable LEAH SEALS [...] MYRA LEUNG Consulting Unavailable Broderick Solomon Unavailable TITA SHELDON Attending Unavailable ALEXANDRU PELAYOAB Admitting Unavailable ALEXANDRU PELAYOAB Attending Unavailable TURNER HARDING Attending Unavailable PRETTY ALEMAN Attending Unavailable KATE BRODERICK Attending Unavailable KATE BRODERICK Attending Unavailable TURNER HARDING Admitting Unavailable TURNER HARDING Attending Unavailable Allergies Allergy Classification Reported Allergen(s) Allergy Type Date of Onset Reaction(s) Facility (1 source) Sulfonamides (Antibiotic) Drug allergy (disorder) 09-01-19 21 [facility] Repository (1 source) Sulfamethoxazole / Trimethoprim Drug Allergy NAILS TURNED PURPLE [employer] Other (1 source) Ciprofloxacin; 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: [CIPROFLOXACIN] Drug Allergy 11-24-19 [facility] Repository (1 source) levoFLOXacin; 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: [LEVOFLOXACIN] Drug Allergy 11-24-19 [facility] Repository (1 source) Sulfonamides (Antibiotic); 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: [SULFA (SULFONAMIDE ANTIBIOTICS)] Propensity to adverse reactions to drug (disorder) 12-03-19 [facility] Repository Encounters Encounter Date Encounter Type Care Provider Facility Start: 12-10-2023 End: 12-10-2023 ambulatory HOLLY [facility] Start: 12-06-2023 End: 12-06-2023 ambulatory TITA SHELDON Not Available Start: 11-24-2023 End: 11-24-2023 ambulatory [facility] Start: 11-03-2023 ambulatory [facility] Start: 10-28-2023 End: 10-28-2023 ambulatory PRETTY [facility] Start: 06-04-2023 End: 06-04-2023 ambulatory [facility] Start: 04-22-2023 End: 04-22-2023 ambulatory Broderick Solomon Other [employer] Other Start: 04-22-2023 Office outpatient vi sit 15 minutes Broderick [facility] Start: 12-30-2022 End: 12-30-2022 ambulatory [facility] Start: 10-23-2022 End: 10-24-2022 ambulatory LEAH SEALS Facility:[facility] Start: 09-10-2022 End: 09-11-2022 ambulatory LEAH SEALS Facility:[facility] Start: 08-25-2022 End: 08-26-[address] RINKU PETERSON . Facility:[facility] Start: 08-16-2022 End: 08-16-[address] RINKU PETERSON . Facility:[facility] Start: 03-30-2022 End: 03-30-2022 ambulatory MYRA LEUNG Facility:[facility] Start: 03-12-2022 End: 03-13-[address] TIFFANIE LEON Facility:[facility] Start: 02-09-2022 End: 02-10-[address] RINKU PETERSON . Facility: Immunizations Immunization Date Immunization Notes Care Provider Henry moralespankaj 12-19-2016 tetanus toxoid, reduced diphtheria toxoid, and acellular pertussis vaccine, adsorbed Broderick Solomon Other [employer] Other Medications Current Medications Medication Drug Class(es) Dates [...] a day for 6 days Oct, Not-Taking Payers Date Payer Category Payer Medicare [id number] 1950 Unknown [id number] 2.16.84 [id number] 1950 Unknown [id number] 2.16.84 [id number] 1950 Unknown [id number] 2.16.84 [id number] 1950 Unknown [id number] 2.16.84 [id number] 1950 Unknown [id number] 2.16.84 [id number] 1950 Unknown [id number] 2.16.84 [id number] 1950 Unknown [id number] 2.16.84 [id number] 1950 Unknown [id number] 2.16.84 [id number] Problems Active Problems Problem Classification Problem Date Documented Da te Episodic/Chronic Cardiac dysrhythmias (2 sources) Paroxysmal atrial fibrillation; 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: [Paroxysmal atrial fibrillation] Onset: 11-03-2023 Chronic Cardiac dysrhythmias (5 sources) Palpitations; 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: [...] Onset: 08-25-2022 Chronic Other aftercare (1 source) 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; 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: [SENIOR LIVING CURRNT USE ANTICOAGULANTS] Onset: 08-18-2022 Episodic Other aftercare (1 source) 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; 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: [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 CURRENT DRUG THERAPY] Onset: 08-18-2022 Episodic Other bone disease and musculoskeletal deformities (1 source) Other specified disorders of bone density and structure, multiple sites; 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: [OTH D/O BONE DENSITY STRUCT MX SITE] Onset: 08-28-2022 Episodic Other nutritional; endocrine; and metabolic disorders (1 source) Hypomagnesemia; 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: [HYPOMAGNESEMIA] Onset: 08-18-2022 Chronic Other screening for suspected conditions (not mental disorders or infectious disease) (6 sources) Encounter for screening mammogram for malignant neoplasm of breast; 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: [Abnormal result of other cardiovascular function study] Onset: 02-09-2022 Episodic Other upper respiratory infections (4 sources) Chronic [...] SIGNS INVLV CIRC RS] Onset: 03-12-2022 Episodic Residual codes; unclassified (1 source) Family history of malignant neoplasm of prostate; 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: [FAMILY HX STEPHAN NEOPLASM PROSTATE] Onset: 02-11-2022 Episodic Unclassified (1 source) Contact with and (suspected) exposure to covid-19 Z20.822 Viral infection (2 sources) COVID-19; 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: [COVID-19] Onset: 04-01-2022 Results Test Name Value Interpretation Reference Range Facility Orders Onlyon 12-14-2023 Orders Only [id number] Sharri Cooney 1950 F Date Provider Department Center 12/14/2023 166-PRETTY ALEMAN CARD [facility] No family history on file Normal [facility] Orders Onlyon 11-25-2023 Orders Only [id number] Sharri Cooney 1950 F Date Provider Department Center 11/25/2023 [id number], HISTORICAL CARD [facility] No family history on file Normal [facility] HPon 11-24-2023 [facility] Electrophysiology Consult Note Reason for visit: 6 [...] or signs patient was recently seen in [place] ED 08/2022 for palpitations. She was found [...] palpitations, lightness, dizziness, fatigue 08/2022 ECG by [facility]- appears to be sinus tach with [...] alcohol infrequently, no significant caffeine intake, no unoa-whv-vumzxvz decongestions Family history: Her mother of a brain aneurysm, no history of premature coronary artery disease, no history of arrhythmias Medications: Eliquis 5 mg p.o. twice daily, lisinopril 10/hydrochlorothiazid e 12.5 mg daily, Toprol-XL 50 mg daily, Zocor 10 mg daily ----- 03/03/[address] Mehdi estevez?c; Afib H?PI: [...] alcohol infrequently, no significant caffeine intake, no uwjk-vex-uyproxd decongestions Family history: Her mother of a brain aneurysm, no history of premature coronary artery disease, no history of arrhythmias Medications: Eliquis 5 mg p.o. twice daily, lisinopril 10/hydrochlorothiazid e 12.51 mg daily, Toprol-XL 50 mg daily, Zocor 10 mg daily Investigations: Pulmonary function test 06/03/2021: Normal spirometry, total lung capacity, and diffusion capacity. Clinical correlation required. Echocardiogram 03/12/2021: Global left ventricular systolic function is normal, ejection fraction 55 to 60%. Diastolic function is indeterminate. The right ventricle is normal in size and systolic function. Mild mitral regurgitation. - PMH: History reviewed. No pertinent past medical [...] on file Intimate Partner Violence: Unknown (08/26/2023) [place] Safety & Environment Fear of Current or Ex-Partner: Not on file Emotionally Abused: Not on file Physically Abused: Not on file Sexually Abused: Not on file Physically or Sexually Abused: Not on file Depression: Not on file Housing Stability: Not on file U (more content not included)... Normal [facility] NURSNOTEon 11-24-2023 NURSNOTE RN educated pt on d/ c instructions. RN encouraged pt to voice any questions or concerns. Pt verbalizes no questions or concerns at this time. Pt was walked off of unit with all of belongings. Normal [facility] Office Visiton 11-03-2023 Follow-up visit [id number] Linda Cooneycandida Mendoza 1950 Date Provider Department Center 11/03/2023 [facility] CARD [place] [facility] No family history on file Level of Service:41033 IN OFFICE/OUTPATIENT ESTABLISHED LOW MDM 20 MIN Reason for Visit and Comments: Follow-up [327877] Atrial Fibrillation [80] [facility] 36on 10-29-2023 36 I ordered a stress test for her along with increased metoprolol and Kcl. Also started mag oxide. [facility]. Please call patient and schedule her an appt with Dr. Harding at his soonest available. He said if she really wants to get in [place] with him he can see her at [place] next week while he is on Med . Thanks! [facility] Telephoneon 10-29-2023 Telephone [id number] RandolphSharri L 1950 Date Provider Department Center 10/29/2023 166PRETTY ACOSTA [facility]. No family history on file [facility] Office Visiton 10-28-2023 Follow-up visit [id number] RandolphSharri L 1950 Provider Department Center 10/28/2023 PRETTY GALLAGHER [facility] No family history on file Level of Service:38909 IN OFFICE/OUTPATIENT ESTABLISHED MOD MDM 30 MIN Reason for Visit and Comments: Atrial Fibrillation [80] Palpitations [288369] [facility] Office Visiton 06-04-2023 Follow-up visit [id number] CooneySharri L 1950 Date Provider Department Center 06/04/2023 KATE WHITTEN [facility] No family history on file Level of Service:78702 IN OFFICE/OUTPATIENT ESTABLISHED MOD MDM 30-39 MIN [facility] COVID/FLU RT-PCRon 3 SARS-CoV-2 (COVID-19) RNA VERONICA+probe Ql (Unsp spec) Positive [employer] Other COVID/FLU RT-PCR Negative [employer] Other Office Visiton 12-30-2022 Follow-up visit [id number] Sharri Cooney 1950 F Date Provider Department Center 12/30/2022 1596-KATE BRODERICK CARD [facility] No family history on file Level of Service:04914 IN OFFICE/OUTPATIENT ESTABLISHED MOD MDM 30-39 MIN Reason for Visit and Comments: Follow-up [698527] - Yearly visit- ER sodium mag and potassium low. Wasn't admitted just in ER. No issues since being out Normal [facility] 10-23-2022 AST [Catalytic activity/Vol] 45 U/L Critically high 15-37 [facility] Comment on above: Performed By: #### A LT, AST #### [facility] [address] [place] [address] Dr. Fred Jackson [facility] 10-23-2022 ALT [Catalytic activity/Vol] 48 U/L Normal 14-59 [facility] Comment on above: Performed By: #### A LT, AST #### [facility] [address] [place] [address] Dr. Fred Jackson [facility] 09-10-2022 AST [Catalytic activity/Vol] 40 U/L Critically high 15-37 [facility] Comment on above: Performed By: #### A LT, AST #### [facility] [address] [place] [address] Dr. Fred Jackson [facility] 09-10-2022 ALT [Catalytic activity/Vol] 52 U/L Normal 14-59 [facility] Comment on above: Performed By: #### A LT, AST #### [facility] [address] [place] [address] Dr. Fred Jackson XR DEXA BONE DENSITYon 08-25 XR DEXA BONE DENSITY DEXA Bone Density Study CLINICAL: Evaluate bone mineral density. Postmenopausal COMPARISON: FINDINGS: The bone density study was assessed by dual-energy x-ray absorptiometry with the [id number] scanner. The test results are expressed in [...] RAFIQ SEALS Date: 2022-08-25 09:50 Normal [facility] BNPon 08-16-2022 Natriuretic peptide B (Bld) [Mass/Vol] 87.0 pg/mL Normal <=900.0 [facility] Comment on above: Performed By: #### T SH, CMP, BNP, CMADM ####[facility] [address] [address]Dr. Fred Jackson CARDIAC JASSI ADMITon 023 CK [Catalytic activity/Vol] 152 U/L Normal 26-192 [facility] Comment on above: Performed By: #### T SH, CMP, BNP, CMADM ####[facility] [address] [place] [address]Dr. Fred Jackson CK.MB [Mass/Vol] 2.96 ng/mL Normal <=3.60 [facility] Comment on above: Performed By: #### T SH, CMP, BNP, CMADM ####[facility] [address] [place], [place] [address]Dr. Fred Jackson HSTROP 6.1 pg/mL Normal 4.0-51.3 [facility] Comment on above: Result Comment: CUT- OFF POINTS HAVE BEEN ESTABLISHED BASED ON THE FOURTH UNIVERSAL DEFINITIONS OF MYOCARDIAL INFARCTION. THE UPPER REFERENCE LIMIT (URL) OF TROPONIN, DEFINED THE 99TH PERCENTILE OF cTnI DISTRIBUTION IN A REFERENCE POPULATION, HAS BEEN CONFIRMED THE DECISION THRESHOLD FOR NM DIAGNOSIS. Performed By: #### T SH, CMP, BNP, CMADM ####[facility] [address] [place] [address]Dr. Fred Jackson ANGELI 80 ng/mL Normal 9-82 [facility] Comment on above: Performed By: #### T SH, CMP, BNP, CMADM ####[facility] [address] [place] [address]Dr. Fred Jackson CBC AUTO DIFFon 08-16-2022 BASO # 0.1 103/ul Normal 0.0-0.1 [facility] Comment on above: Performed By: #### C BC #### [facility] [address] [place] [address] Dr. Fred Jackson Basophils/100 WBC (Bld) 1.4 % Normal 0.2-2.0 [facility] Comment on above: Performed By: #### C BC #### [facility] [address] [place] [address] Dr. Fred Jackson EO # 0.3 103/ul Normal 0.0-0.7 [facility] Comment on above: Performed By: #### C BC #### [facility] [address] [place] [address] Dr. Fred Jackson Eosinophils/100 WBC (Bld) 3.1 % Normal 0.9-7.0 [facility] Comment on above: Performed By: #### C BC #### [facility] [address] [place] [address] Dr. Fred Jackson Erythrocyte distribution width (RBC) [Ratio] 12.0 % Normal 11.0-15.0 [facility] Comment on above: Performed By: #### C BC #### [facility] [address] [place] [address] Dr. Fred Jackson Hematocrit (Bld) [Volume fraction] 40.5 % Normal 36.0-48.0 [facility] Comment on above: Performed By: #### C BC #### [facility] [address] [place] [address] Dr. Fred Jackson Hemoglobin (Bld) [Mass/Vol] 13.8 g/dL Normal 12.0-16.0 [facility] Comment on above: Performed By: #### C BC #### [facility] [address] [place] [address] Dr. Fred Jackson IG # 0.06 10e3/ul Critically high 0.00-0.03 [facility] Comment on above: Performed By: #### C BC #### [facility] [address] [place] [address] Dr. Fred Jackson IG % 0.6 % Critically high 0.0-0.5 [facility] Comment on above: Performed By: #### C BC #### [facility] [address] [place] [address] Dr. Fred Jackson LYMPH # 3.8 103/ul Normal 1.2-3.8 [facility] Comment on above: Performed By: #### C BC #### [facility] [address] [place] [address] Dr. Fred Jackson Lymphocytes/100 WBC (Bld) 36.6 % Normal 20.5-60.0 [facility] Comment on above: Performed By: #### C BC #### [facility] [address] [place] [address] Dr. Fred Jackson MANUAL DIFF REQ NO Normal [facility] Comment on above: Performed By: #### C BC #### [facility] [address] [place] [address] Dr. Fred Jackson MCH (RBC) [Entitic mass] 31.2 pg Normal 26.7-34.0 [facility] Comment on above: Performed By: #### C BC #### [facility] [address] [place] [address] Dr. Fred Jackson MCHC (RBC) [Mass/Vol] 34.1 g/dL Normal 29.9-35.2 [facility] Comment on above: Performed By: #### C BC #### [facility] [address] [place] [address] Dr. Fred Jackson MCV (RBC) [Entitic vol] 91.6 fL Normal 81.0-99.0 [facility] Comment on above: Performed By: #### C BC #### [facility] [address] [place] [address] Dr. Fred Jackson MONO # 1.2 103/ul Critically high 0.3-0.8 [facility] Comment on above: Performed By: #### C BC #### [facility] [address] [place] [address] Dr. Fred Jackson Monocytes/100 WBC (Bld) 11.3 % Normal 1.7-12.0 [facility] Comment on above: Performed By: #### C BC #### [facility] [address] [address] [address] Fred Jackson NEUT # 4.9 103/ul Normal 1.4-6.5 [facility] Comment on above: Performed By: #### C BC #### [facility] [address] [address] [address] Fred Jackson Neutrophils/100 WBC (Bld) 47.0 % Normal 43.0-75.0 [facility] Comment on above: Performed By: #### C BC #### [facility] [address] [address] [address] Fred Jackson Platelet mean volume (Bld) [Entitic vol] 8.9 fL Critically low 9.5-13.5 [facility] Comment on above: Performed By: #### C BC #### [facility] [address] [address] [address] Fred Jackson PLT 404 103/ul Normal 150-450 [facility] Comment on above: Performed By: #### C BC #### [facility] [address] [address] [address] Fred Jackson RBC 4.42 106/ul Normal 4.20-5.40 [facility] Comment on above: Performed By: #### C BC #### [facility] [address] [address] [address] Fred Jackson WBC 10.3 103/ul Normal 4.0-11.0 [facility] Comment on above: Performed By: #### C BC #### [facility] [address] [address] [address] Fred Jackson PROF 14(COMP METB)on 023 Albumin [Mass/Vol] 4.3 g/dL Normal 3.4-5.0 [facility] Comment on above: Performed By: #### T SH, CMP, BNP, CMADM ####[facility] [address] [place] [address]Dr. Fred Jackson Albumin/Globulin [Mass ratio] 1.2 {ratio} Normal [facility] Comment on above: Performed By: #### T SH, CMP, BNP, CMADM ####[facility] [address] [place] [address]Dr. Fred Jackson ALP [Catalytic activity/Vol] 96 U/L Normal 46-116 [facility] Comment on above: Performed By: #### T SH, CMP, BNP, CMADM ####[facility] [address] [place] [address]Dr. Fred Jackson ALT [Catalytic activity/Vol] 34 U/L Normal 14-59 [facility] Comment on above: Performed By: #### T SH, CMP, BNP, CMADM ####[facility] [address] [place] [address]Dr. Fred Jackson Anion gap [Moles/Vol] 16.6 mmol/L Normal [facility] Comment on above: Performed By: #### T SH, CMP, BNP, CMADM ####[facility] [address] [place], [place] [address]Dr. Fred Jackson AST [Catalytic activity/Vol] 39 U/L Critically high 15-37 [facility] Comment on above: Performed By: #### T SH, CMP, BNP, CMADM ####[facility] [address] [place] [address]Dr. Fred Jackson Bilirubin [Mass/Vol] 0.8 mg/dL Normal 0.2-1.0 [facility] Comment on above: Performed By: #### T SH, CMP, BNP, CMADM ####[facility] [address] [place] [address]Dr. Fred Jackson Calcium [Mass/Vol] 10.1 mg/dL Normal 8.5-10.1 [facility] Comment on above: Performed By: #### T SH, CMP, BNP, CMADM ####[facility] [address] [place] [address]Dr. Fred Jackson Chloride [Moles/Vol] 91 mmol/L Critically low 98-107 [facility] Comment on above: Performed By: #### T SH, CMP, BNP, CMADM ####[facility] [address] [place] [address]Dr. Fred Jackson CO2 [Moles/Vol] 25.5 mmol/L Normal 21.0-32.0 [facility] Comment on above: Performed By: #### T SH, CMP, BNP, CMADM ####[facility] [address] [place] [address]Dr. Fred Jackson Creatinine [Mass/Vol] 0.95 mg/dL Normal 0.55-1.02 [facility] Comment on above: Performed By: #### T SH, CMP, BNP, CMADM ####[facility] [address] [place] [address]Dr. Fred Jackson EGFR-AF PAKISTANI >60 Normal >=60 [facility] Comment on above: Performed By: #### T SH, CMP, BNP, CMADM ####[facility] [address] [place] [address]Dr. Fred Jackson EGFR-NON AF PAKISTANI 58 mL/min/1.73m2 Critically low >=60 [facility] Comment on above: Performed By: #### T SH, CMP, BNP, CMADM ####[facility] [address] [place] [address]Dr. Fred Jackson Globulin (S) [Mass/Vol] 3.6 g/dL Normal [facility] Comment on above: Performed By: #### T SH, CMP, BNP, CMADM ####[facility] [address] [place] [address]Dr. Fred Jackson Glucose [Mass/Vol] 116 mg/dL Critically high 74-106 [facility] Comment on above: Performed By: #### T SH, CMP, BNP, CMADM ####[facility] [address] [place] [address]Dr. Fred Jackson Potassium [Moles/Vol] 3.1 mmol/L Critically low 3.5-5.1 [facility] Comment on above: Performed By: #### T SH, CMP, BNP, CMADM ####[facility] [address] [place], [place] [address]Dr. Fred Jackson Protein [Mass/Vol] 7.9 g/dL Normal 6.4-8.2 [facility] Comment on above: Performed By: #### T SH, CMP, BNP, CMADM ####[facility] [address] [place] [address]Dr. Fred Jackson Sodium [Moles/Vol] 130 mmol/L Critically low 136-145 [facility] Comment on above: Performed By: #### T SH, CMP, BNP, CMADM ####[facility] [address] [place], [place] [address]Dr. Fred Jackson Urea nitrogen [Mass/Vol] 17.0 mg/dL Normal 7.0-18.0 [facility] Comment on above: Performed By: #### T SH, CMP, BNP, CMADM ####[facility] [address] [place] [address]Dr. Fred Jackson Urea nitrogen/Creatini ne [Mass ratio] 17.9 mg/mg Normal [facility] Comment on above: Performed By: #### T SH, CMP, BNP, CMADM ####[facility] [address] [place] [address]Dr. Fred Jackson PROTIMEon 08-16-2022 INR Coag (PPP) [Relative time] 1.01 {INR} Normal [facility] Comment on above: Performed By: #### P TT, PT ####[facility] [address] [place], [place] [address]Dr. Fred Jackson INR GUIDELINES SEE BELOW Normal [facility] Comment on above: Result Comment: DOTTY RED INR: 2.0 - 3.0 CONDITIONS NOT LISTED BELOW 2.5 - 3.5 FOR PROSTHETIC HEART VALVE REPLACEMENT 2.5 - 3.5 RECURRENT THROMBOSIS Performed By: #### P TT, PT ####[facility] [address] [place], [place] [address]Dr. Fred Jackson PT Coag (PPP) [Time] 10.7 s Normal 9.0-11.6 [facility] Comment on above: Performed By: #### P TT, PT ####[facility] [address] [place], [place] [address]SyCaroline Shivandana Jackson PTTon 08-16-2022 aPTT Coag (Bld) [Time] 33.9 s Normal 22.3-36.2 [facility] Comment on above: Performed By: #### P TT, PT ####[facility] [address] [place], [place] [address]XjCaroline Jackson TROPONIN, HIGH SENSITIVITYon 08-16-2022 HSTROP 15.1 pg/mL Normal 4.0-51.3 [facility] Comment on above: Result Comment: CUT- OFF POINTS HAVE BEEN ESTABLISHED BASED ON THE FOURTH UNIVERSAL DEFINITIONS OF MYOCARDIAL INFARCTION. THE UPPER REFERENCE LIMIT (URL) OF TROPONIN, DEFINED THE 99TH PERCENTILE OF cTnI DISTRIBUTION IN A REFERENCE POPULATION, HAS BEEN CONFIRMED THE DECISION THRESHOLD FOR NM DIAGNOSIS. Performed By: #### H STROPN #### [facility] [address] [place], [place] [address] Dr. Fred Jackson TSHon 08-16-2022 TSH 4.364 uIU/mL Critically high 0.358-3.740 [facility] Comment on above: Performed By: #### T SH, CMP, BNP, CMADM ####[facility] [address] [place], [place] [address]OjCaroline Shivandana Jackson XR CHEST 1 Von 08-16-2022 XR [...] DALI MYERS Date: 2022-08-16 00:02 Normal [facility] Covid-19 PCR (CVDTBH)on 03-06 SARS-CoV-2 (COVID-19) RNA VERONICA+probe Ql (Unsp spec) Detected Critically abnormal NOT DETECTED [facility] Comment on above: Result Comment: This test is not yet approved or cleared by the [place] FDA. When there are no FDA-approved or cleared tests available, and other criteria are met, FDA can make tests available under an emergency access mechanism called an Emergency Use Authorization (EUA). The EUA for this test is supported by the [place] of Health and Human Service's (HHS's) declaration [...] longer be used). Performed By: #### C [facility] ####[facility] [address] [place], [place] [address]Co. Fred Jackson US CAROTID ART BILon 022 [...] by: TIFFANIE LEON Date: 2022-03-12 14:51 Normal [facility] MG MAMM SCREEN 3D JASMEET CADon 02-09-2022 MG MAMM SCREEN 3D JASMEET CAD Patient: SHARRI COONEY Exam Date: 02/09/2022 : 1950 Gender:F Ordering : DR RINKU PETERSON . Admission #: [id number] Family : Order #: [id number] CLICK HERE TO VIEW EXAM RADIOLOGY REPORT [...] prostate cancer at age 60. LOCATION: [facility] BREAST COMPOSITION: Heterogeneously dense,which may obscure [...] PALPABLE LUMP SHOULD BE BIOPSIED. Dictated by: Raifq Zuñiga MD on 02/09/2022 at 09:48 Approved by: Rafiq Zuñiga MD on 02/09/2022 at 09:50 Normal [facility] Coding Summary.on 03-12-2021 Coding Summary. CD:[id number] G h0bWw+PGhlYWQ+KB5DXJJ zX50mvSKrjT8BJ2gZPZ5Y URXMCQFZKL8SKE6ikSB1Y XshH1NivmCd QjhqmZQoJV58KGr2KLD3x JxjZLsdqG7udBZbB1l5Dr FbRT42gK81AOniQCFqNsH 3LjZpbjsgbWFy M5veScGwaTCxZwd+PHRhY mxlIHdpZHRoPScxMDAlJy IfkSnlUB5hQh8kBPNjMGR vbGxhcHNlOiBj i8dnJWPbGIcfUI2gzYdiF 9FomIX4XAUsy7y0Lq11xE I+OWRnXTF3vYrvMJhzk50 7QzBcp7geWUC9 fRFfAEudQMK3A25sy5D6G UNvVCZaACY8hON5vN5ynE evxwspK3QvvYMfSmV0PIZ 1uCMmzL2nsOiv cohlxJ1dSbv+A66ZXL8ZF VZSGU9FTul4G8DkItiebH I+EG84PSByIR34aFGldPM fg1sicZc0XuOy VFWhWAP2qUvyPYxzv2CpX MEmC66waMPqq1R4WNHqbX uxjJVtIiAmnDP8aS6xHTt tquvyb0fvmarx Dxatc6zcva22bG43O00dH UouUMQsCBU3NLIpFGRynY ycvp0tdL8qWi9+LUbga3j qs5cotWr9EtXr EGOmivSivCoqGDY0v1NgM h92D9QmiImaw4UwKlx5jj 05mWWya5E8hZH8HMksEDL ofN0vEHnwCaK8 KPUoYfHpsL24xNXcYGimW f1ndNznaDieYU5uFMGymi snTQBcxE1fZFOpbEQfvKu hZN4jFTQeteus w354UeDbGEB1XNQjnGBcH 4LwoO1aPuMlMAJrDWYxB7 KsuBKoMNxnJ127RMirMoK 5YSLnasVrK2Ld NDSopExoNdI1h2Q9Po8Fi 2PubdavBYT8JTpqJUT7Yx O4OoDwGmY9N1WkKmv4HIU puZygGP7pH2Mb LHIwjnoycwqkyRA7ZHIoM IFngL50nXVvPTqiNs5ge0 S1z181PXVdDGTjyC20Ny4 udDogMTBwdCBU yM9pgkahm4tzfrizEbBvN TPmDIb4OHi8SVBywMfsFm MjHWP7YnU0HYH0dGPtaO4 foOekqzqybE1q Oyc+N40enE5xNWD2IQL6i jjnOUQbrlBcDV65PT89C3 RyPjwvdGFibGU+PGRpdiB nmQqiVY2aNnMe b1gap0YnXKeiX3HfFTSkT GhyHzl1JTEiCMW8lBS1vM 9aCJYbNRgjm7G5yHG4M5J nglOltg6qp5yf FSTcTUbvL82fmRGef4L7H EDuhWM8OVVzqRzkDqSsbS 93Oyc+DJUheDtfc8GcJmk vw2rzm3qxvLi5 QhYiNUAwqtIsiIjnVOD8z 4PuPe87Y79bMZlbNHZaFL EaQRDbPLAzpCmwyl8whG1 wIi8+PGNvbCB3 yHB9zB4zIPLcKyF8NFbzB 695GiFjqBTtYcdbu6sjq4 mjlIh0OrFyLKDnpxJcsGc zSPM4w1PgSv64 P47bETmkOSQgOKLhTTLrB WAqqAbkbc9cqS6tIl3+PC 7qf0frrs63vD97sXB+PHR pEWT3tYybUDkv OPStoB8eFKlqXeO1RRTfA zHlcZ33bXTmFXayXl2sbJ yubDtvYP6iXIMktlibm13 7CnOkh2qsSNOp uTPvUJihPVI3A45gj5B2O NZsMTOtUMH0wDD7gJ5lcS lnbjogbGVmdDsgdmVydGl dKIkxVKbcO444 IHRvcDsnPlBhdGllbnQgT nIzBBk2K0DySce2IDMzaM imEH8cpLSnZRlhFl6owPf qaYqwFI9tSOIa lgrik236DjIfs7sxHSNdl ANsEOvhQLA4L39bf3M4JY SjBBEkGPH0aQU6yH8qfUf nbjogbGVmdDsg hxDmsArzXNycLPbqX999C HRvcDsnPkJpcnRoIERhdG L7OC75LL59bMYra3N9xIG 7L0WmSTKgdfha newgqEL2JQKoWLVtgX70F z3sdEufIx0rGSNuSYN2WK KixLMfA3QlnK8rLvDcFFY eKKBeP9RyrEMz RAaaC339RKdvEeC4OQPkv rWiS9PgJNSvhUwdTxP7z7 Q5Ry8ND9N1HA20YD43iZO je3T3jTX8U2Cq RHUibyjzxjqfeUA1JZHsE KIgaX50Ml9omCozFp7gIS AqFLJ2ZRSieNIoV7ZsyL6 yOiAjMDAwMDAw X7BaeESyDDztM582TDrnZ jF3GSOhmiCvW2AqRZShhY rvXsH4w8F1Zb2JKXx8ZL9 1HL43bMVnz8I3 sFT5P7XgIPMtvxkrhwmjr LJ3AQYvVJXgsK71Zc1avL xjCj9nJRFxGRK6SODgpQU hL0YtxU1mDtJt EIIjZEAwN8QvhLAmONgtL 921SXegMrZ1GWRozwJbD4 LrORErkUkvVkO7j1Z0Zd2 NVCKxNS50NJK6 eHV0RV09OK25U4YjPkkom GFibGU+PHRhYmxlIHdpZH RoPScxMDAlJyBzdHlsZT0 iUv3vCQBtQPFv uTktbDBcAoLsb2sbWFNrJ NnqPC5ayVjlL5QjoGC3KB Jot9d6Ku52C87mU4HllVO +IAWczLI6gVT0 uL9wPmDxSyD2PHufH548Z lUpjJMiWwkai4gak7ufkJ h9QdB3FJDuacUsnBzfAWA 1v4ZeOi97L50o IHdpZHRoPSIxNSUiIHZhb Velvr2jqG8hYg1+PGNvbC C8wKO4bH3yYmIcAdG1PEe cS785DeMokMWq Sidcb5mkj8wgkOo5AzZfM IRxqkCbqTszEFV9n6VhUo 13N6XasNgys0XyTub5hv5 7iEWku8C0nQH1 C1DkBVQzanbxcOTqiTjcC R5zZZGjsitkLMWbhK7kFH CwY6g3RqWhBrN7LOigD8P smeX1LGQdkIXx DVdcCNK8J33hs1S6KOSfM GFyKDY1uNU0aA6xzRjodi ogbGVmdDsgdmVydGljYWw vVSjvD230BIKk vRcoZZMobY9mVCNbnCVgg LsgAD1vDECdmgdpRaKCEb FUHGjuHZPXQpHRNzF1S7B mDpy3ULRvrDfv UI5euYPaOFyzQa5wgRryr JrgRN8gTFWiclkyZZFzvC 0jHKSseQZjhDfuTQ0tNYH lcawqt108LdIb NIN3VZNnlZZpJ5XonA6lS uVhFODwITTmD2IcnHIkVW qpG876GJxhIpW2YDCmygS wO8BzNGTvwBrx KwI7f8A2Qp3hIj2vUR6oR HWuTE78FN99uIYtc4K0jR F0M1TfDGDfhaiqwfziwAX 2OPJiJMCczF17 oNIzAQpwIy0mr8B5j494Q HWgEJFazN84Az6ynGawZA DyhWEOkZ8flqrah0qnpwe gIzAwMDAwMDt0 EPl2FAEilUesMsAcENR3P iF1UHC6aTNjuB5paLpzlo coiO2xRmr+NjggWWVhcnM 8Q1WqDaf7IMXi rWezYR6qeZBvOHvwNf8wh WsxuZbeVQ7oGMFfhcbpAG HkuZ9hLLSttXUixOrgYC7 nOGKghyecn638 JjNfGGQ7QHYauCQwR2Hev V2mFyLjPANsYJZtV2KvjR RpAErxO629ZFnuEoQ1MFE mpzWgR1JwCXHk uBnhEjB6c8X2He8STP0az IU9U0GsQat4TDGobDsmMP 8cwRKbHXacOm4vvGyitUn zKL4xLKXtmsgb ALTcmZ6nPSXmbDShfMujU G0lTRBlsoprh197GhPtFG D7WLSxiQWgE4HivN6lFvV yTPGoKQWaX8Jf eQKiWSebG047IFmcTlL3N RPmpzApO7ToCTKuxWtxKu H2n0Q5Kr1QRUYtMQDqlKH mHlY2E2CvKivk dHI+UK65GMYpJN86vNWdq XKok9czsPo5XeOzPKXfHE M9mDtpUJwtl1WdYVOwP54 wwQZnl7R3ECBu vIvjbFDjWgJjxUH1vJ3wP Jiyaacgn5mfzkudCobmi5 anoe11yK31I48sBNteBKF oPSIzMCUiIHZh aArbvs9apO1lTf1+PGNvb OX2wMC8zD9aGlErHgW2JO hvL814BpNjoVIsAxoyf3y ns6irfUd5AwQs NBBjpsLdpLczKWZ2d7SyB w47I54aEAxwLAClEJGmAM PzGEAjkHubwe5sfZ0kXs1 +OR1jl6gvgg70 hH33eUD+LRUtUDK4jRvfJ ZoeWNUcbJ8xVHtaXcZ0NJ RxGkXilT78kAHyODxaYg9 tlDvsbZpqOF3o QDCpawwzb110GoOss8pgB DPklRHrKDpfGCJ8P80ol3 Q6SLQgBRAwAJB3kLI7sY1 hbGlnbjogbGVm dDsgdmVydGljYWwtYWxpZ 277CKIliAhrTcKjeNHaQ0 yoypFLZX7oUxhhvSI+PHR wDLQ7bGplFNug TJUgwD7lEWCvX4v9ElXvO eM3WGbzE8FfrrO3SJUbaQ EiTZZpfNWObK0rvfltx7f vcjogIzAwMDAw YDq4NIf0NEOqwKesIpRbT TM3XtK7IPA0dSSiiQ7waZ tbndwamJ6cJmk+RklOOjw vdGQ+PHRkIHN0 eCugGKriQWOppY0jBHNbT 5m0TtNkFnY2ENrpN2Ewrl D0TUEkyROgWOTzgKSBkD7 ubfvym7kcoytq DxCtCFZaLTl9ACo4NQZdh LlbHyYpCMY5DoH6OFJ2tN EneH4tsNyrggrkpE6qHer +TVJOOjwvdGQ+ CKRlEJQ3oVsdQLwfGNCfu P4fBNVzA3x8RvNtVdF5AW zyZ7KwmvY5WPOpxIKqYAC dkLKSpM1gvgok j5yydsyaSlGiZTCuMBh1Z Gi3UXQlqFnuEdPxVIC2Jw E2YJK1lSFskV7kjLjtswd izE1mDpx+UGF5 JKU8SH67ZN38E8QaLdbpi GFibGU+PHRhYmxlIHdpZH RoPScxMDAlJyBzdHlsZT0 wEc1gNQGyMYTi bGxh (more content not included)... Normal [facility] Physician Orderon 02-19-2021 Physician Order [id number]# [id number]:127 [facility] Social History Date Type Detail Facility Unknown if ever smoked [employer] Other Sex Assigned At Sex Assigned At Bir th [employer] Other Vital Signs Date Time Vital Sign Value Performing Clinician Facility 04-22-2023 12:20-0400 Body height 153.67 cm Broderick Solomon Other [employer] Other 04-22-2023 12:20-0400 Body mass index (BMI) [Ratio] 24.58 kg/m2 Broderick Solomon Other [employer] Other 04-22-2023 12:20-0400 Body temperature 98.3 [degF] Broderick Solomon Other [employer] Other 04-22-2023 12:20-0400 Body weight 58.06 kg Broderick Solomon Other [employer] Other 04-22-2023 12:20-0400 Respiratory rate 18 /min Broderick Solomon Other [employer] Other 04-22-2023 12:20-0400 SaO2% (BldA) [Mass fraction] 96 % Broderick Solomon Other [employer] Other Clinical Notes 12-30-2022 to 12-14-2023 Note Date & Type Note Facility 12-14-2023 Note New order for cardiac cath [facility] 11-25-2023 Note EKG portion was posi tive for inferior ischemia. Nuc imaging was negative for ischemia. Her sx's are dyspnea. We are looking to start flecanide for her for her a.fib. Should we proceed with cath or coronary CTA? Thanks! [facility] 11-25-2023 Note Do we have the exerc ise portion results? [facility] 11-25-2023 Note FYI - I made patient aware that we will proceed with coronary angiogram. I placed the orders but [facility] is being EPIC and won't let me close the encounter so working with IT on this. Thx [facility] 11-24-2023 Note LOOP IMPLANT PROCEDU RE NOTE DATE OF PROCEDURE: 11/24/23 PERFORMING PHYSICIAN: Dr. Turner Harding RIB BUILDER: [employer] INDICATIONS FOR PROCEDURE: 1. SVT/AF surveillance CONSENT: [...] the sternum on the left using the [employer] tool. The loop recorder was then injected [...] the incision. Turner Harding MD Cardiac Electrophysiology. [facility] 11-03-2023 Note [place] Electrophysiology Consult Note Reason for visit: 6 [...] or signs patient was recently seen in [place] ED 08/2022 for palpitations. She was found [...] palpitations, lightness, dizziness, fatigue 08/2022 ECG by [facility]- appears to be sinus tach with [...] alcohol infrequently, no significant caffeine intake, no ithy-nlm-bjvmosl decongestions Family history: Her mother of a [...] alcohol infrequently, no significant caffeine intake, no lebj-dtx-byjtthl decongestions Family history: Her mother of a [...] on file Intimate Partner Violence: Unknown (08/26/2023) [place] Safety & Environment Fear of Current or Ex-Partner: Not on file Emotionally Abused: Not on file Physically Abused: Not on file Sexually Abused: Not on file Physically or Sexually Abused: Not on file Depression: Not on file Housing Stability: Not on file U (more content not included)... [facility] 10-28-2023 Note NM Electrophysiology Consult Note Reason for visit: PAF/MR/HTN/HLD [...] or signs patient was recently seen in [place] ED 08/2022 for palpitations. She was found [...] lightness, dizziness, fatigue 08/2022 ECG by [place] [facility]- appears to be sinus tach with [...] alcohol infrequently, no significant caffeine intake, no ddph-gus-damrppo decongestions Family history: Her mother of a [...] alcohol infrequently, no significant caffeine intake, no bebg-put-ppurwtf decongestions Family history: Her mother of a [...] Intimate Partner Violence (more content not included)... [facility] 10-28-2023 Note Patient here for [facility] ED for afib. Says she recently got back from a cruise and was very anxious the whole time about everything. Denies chest pain, SOB, lightheadedness/syncope, and bleeding on Eliquis. In the ED she was given RX for hydroxyzine for her anxiety. Lili HARJINDER Perry advised that she not take this because [...] All other systems reviewed and are negative. [facility] 06-04-2023 Note NM Electrophysiology Consult Note Reason for visit: 6 [...] or signs patient was recently seen in [place] ED 08/2022 for palpitations. She was found [...] lightness, dizziness, fatigue 08/2022 ECG by [place] [facility]- appears to be sinus tach with [...] alcohol infrequently, no significant caffeine intake, no teln-hck-cnwqyob decongestions Family history: Her mother of a [...] alcohol infrequently, no significant caffeine intake, no ltbv-rti-kcsnfqe decongestions Family history: Her mother of a [...] (Eliquis) 5 m (more content not included)... [facility] 06-04-2023 Note Patient here for 6 m o follow up PAF, mitral valve regurgitation, and hypertension. She had an echo in January 2023. Says her BP has been running around 150/90, as she is always high strung this time of year . Denies chest pain, SOB, palpitations, lightheadedness, and bleeding on Eliquis. Review of Systems All other systems reviewed and are negative. [facility] 04-22-2023 Evaluation note Encounter Date Diagnosis Assessment [...] see your pcp. Take tylenol as needed. [employer] Other 06-28-2023 Note- history of mild regurgitation from echo 2020 - we will repeat echocardiogram to assess valvular regurgitation and LA size [facility]06-28-[facility] Note- elevated today, she states this normally low - we will have her check her blood pressure 2-3 times a day for 1 week and send clinic the readings - continue Toprol-XL 50 mg daily, Zocor 10 mg daily, lisinopril-hydrochlorothiazide 10-12.5 mg [facility]-History of paroxysmal A-fib, recent ER visit does not look like she had A-fib - continue Eliquis 5 mg twice daily - [id number] at least 3 for age, gender, hypertension - continue metoprolol XL 50 mg daily - in the past she was on amiodarone for short-term, converted chemically and then amiodarone was discontinued - recent ER visit she had elevated [facility] 12-30-2022 NoteReview of Systems All other systems reviewed and are negative.[facility] 12-30-2022 NoteUT Electrophysiology Consult Note Reason for [...] or signs patient was recently seen in [place] ED 08/2022 for palpitations. She was found [...] lightness, dizziness, fatigue 08/2022 ECG by [place] [facility]- appears to be sinus tach with [...] alcohol infrequently, no significant caffeine intake, no hfig-lor-lizqptr decongestions Family history: Her mother of a [...] alcohol infrequently, no significant caffeine intake, no ygya-vau-rjudcbh decongestions Family history: Her mother of a [...] tablet by mouth in (more content not included)...[facility] - [facility]orted* Type Description Date Medical History HTN Medical History HYPERLIPIDEMIA Medical History SHINGLES Medical History [employer] Medical History Afib Surgical History TUBALIGATION Surgical History EYE SURGERY Surgical History MACULAR HOLE Surgical History LUMP REMOVED FROM LEFT BREAST Surgical History bunionectomy Hospitalization History 3 CHILD BIRTHS Hospitalization History [employer] Other Summary Purpose Family History No Family History Records FoundNo Family History Records FoundNo Family History Records FoundNo Family History Records Found Advance Directives No Advanced Directives Records FoundNo Advanced Directives Records FoundNo Advanced Directives Records FoundNo Advanced Directives Records Found Additional Source Comments INFORMATION SOURCE (unrecogn ized section and content) DATE CREATED AUTHOR 03/13/2021 [facility] DATE CREATED AUTHOR AUTHOR'S ORGANIZ ATION 10/30/2022 [facility] DATE CREATED AUTHOR AUTHOR'S ORGANIZ ATION 12/07/2023 [facility] EPIC DATE CREATED AUTHOR AUTHOR'S ORGANIZ ATION 12/25/2023 [facility] REASON FOR VISIT (unrecogniz ed section [...] BE BASED ON THE PRIMARY CLINICAL RECORDS. [employer] provides no warranty or guarantee of the accuracy or completeness of information in this document.
[2024-01-05 12:35] LABS: Basophils Absolute Auto 0.1 10^3/uL (0.0-0.1); Basophils Percent Auto 1.7 % (0.2-2.0); Eosinophils Absolute Auto 0.2 10^3/uL (0.0-0.7); Hematocrit 38.8 % (36.0-48.0); Hemoglobin 12.5 g/dL (12.0-16.0); Immature Granulocytes Abs Auto 0.03 10^3/uL (0.00-0.03); Immature Granulocytes Pct Auto 0.6 % (0.0-0.5); Lymphocytes Absolute Auto 1.2 10^3/uL (1.2-3.8); Lymphocytes Percent Auto 24.8 % (20.5-60.0); Mean Corpuscular HGB Conc 32.2 g/dL (29.9-35.2); Mean Corpuscular Hemoglobin 30.8 pg (26.7-34.0); Mean Corpuscular Volume 95.6 fL (81.0-99.0); Mean Platelet Volume 9.6 fL (9.5-13.5); Monocytes Absolute Auto 0.6 10^3/uL (0.3-0.8); Monocytes Percent Auto 11.7 % (1.7-12.0); Neutrophils Absolute Auto 2.8 10^3/uL (1.4-6.5); Neutrophils Percent Auto 57.2 % (43.0-75.0); Platelet Count 301 10^3/uL (150-450); Red Blood Count 4.06 10^6/uL (4.20-5.40); Red Cell Distribution Width 12.9 % (11.0-15.0); White Blood Count 4.8 10^3/uL (4.0-11.0)
[2024-01-05 12:43] LABS: Anion Gap 8.2; BUN Creatinine Ratio 14.9; Calcium 9.5 mg/dL (8.5-10.1); Carbon Dioxide 30.8 mmol/L (21.0-32.0); Chloride 101 mmol/L (98-107); Estimated GFR (African America >60 (>=60); Estimated GFR (Non-African Ame >60 (>=60); Glucose 94 mg/dL (74-106); Sodium 136 mmol/L (136-145)
== END 2024-01-05 11:23 | disposition home or self-care (01) ==
LOC: LAB 11:24
PROVIDERS: PCP Internal Medicine; Visit Provider Internal Medicine Interventional Cardiology
DX: Z01.818 Encounter for other preprocedural examination (principal)
CPT/HCPCS: 36415; 80048; 85025

== ENCOUNTER 2024-02-17 10:05 | Outpatient (OUT) | payer MEDICARE, SELFPAY ==
--- OUTSIDE RECORDS SUMMARY | 2024-02-17 10:08 | XMS_ITS | CCD ---
Author Organization [facility] CliniSynm Care Team Providers Care Skill Labor Name Role Phone DIONY ., DR DOBBS [...] Unavailable HOY ., DR DOBBS Attending Unavailable [place], DR RAFIQ [employer] Unavailable LEAH SEALS [...] LEUNG Attending Unavailable MYRA LEUNG Admitting Unavailable HOY ., DR DOBBS Primary Care Unavailable MYRA LEUNG Consulting Unavailable Broderick Solomon Unavailable TITA SHELDON Attending Unavailable TURNER HARDING Admitting Unavailable TURNER HARDING Attending Unavailable [place], EHAB Referring Unavailable TURNER HARDING Attending Unavailable PRETTY PLAZA Attending Unavailable PRETTY PLAZA Attending Unavailable KATE BRODERICK Attending Unavailable [place], EHAB Admitting Unavailable [place], EHAB Attending Unavailable [place], EHAB Admitting Unavailable [place], EHAB Attending Unavailable Allergies Allergy Classification Reported Allergen(s) Allergy Type Date of Onset Reaction(s) Facility (1 source) Sulfonamides (Antibiotic) Drug allergy (disorder) 09-01-19 21 [facility] Repository (1 source) Sulfamethoxazole / Trimethoprim Drug Allergy NAILS TURNED PURPLE [employer] Other (1 source) Ciprofloxacin; 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: [CIPROFLOXACIN] Drug Allergy 11-24-19 [facility] Repository (1 source) levoFLOXacin; 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: [LEVOFLOXACIN] Drug Allergy 11-24-19 [facility] Repository (1 source) Sulfonamides (Antibiotic); 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: [SULFA (SULFONAMIDE ANTIBIOTICS)] Propensity to adverse reactions to drug (disorder) 12-03-19 [facility] Repository Medications Current Medications Medication [...] sources) Palpitations; 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: [PALPITATIONS] Onset: 08-16-2022 Episodic Disorders of lipid metabolism (2 sources) Mixed hyperlipidemia; 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: [Mixed hyperlipidemia] Onset: 10-29-2023 Chronic Essential hypertension (2 sources) Essential (primary) hypertension; [...] Onset: 08-25-2022 Chronic Other aftercare (1 source) [facility] (current) use of anticoagulants; 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: [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] Onset: 08-18-2022 Episodic Other aftercare (1 source) 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; 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: [OT FDC CURRENT DRUG THERAPY] Onset: 08-18-2022 Episodic Other bone disease and musculoskeletal deformities (1 source) Other specified disorders of bone density and structure, multiple sites; 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: [OT D/O BONE DENSITY STRUCT MX SITE] Onset: [...] involving the circulatory and respiratory systems; 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: [OT SPEC SX SIGNS INVLV CIRC RS] Onset: 03-12-2022 Episodic Residual codes; unclassified (1 source) Family history of malignant neoplasm of prostate; 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: [FAMILY HX MALIG NEOPLASM PROSTATE] Onset: 02-11-2022 Episodic Unclassified (1 source) Contact with and (suspected) exposure to covid-19 Z20.822 Viral infection (2 sources) COVID-19; 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: [COVID-19] Onset: 04-01-2022 Results Test Name Value Interpretation Reference Range Facility Office Visiton 02-01-2024 Follow-up visit [id number] Sharri Cooney 1950 F Date Provider Department Center 02/01/2024 166-PRETTY PLAZA CARD [facility] No family history on file Level of Service:03823 MA OFFICE/OUTPATIENT ESTABLISHED MOD MDM 30 MIN Normal [facility] [place] 01-13-2024 ANES - Attestation signed by Cecilia Peter MD at 01/13/2024 8:28 AM Cecilia Peter MD, MPH, [facility], [facility], [facility], [facility] Interventional Cardiology Pager Email: [email or web address] Patient: Sharri Cooney Procedure Information Date/Time: 01/13/24 0830 Procedure: Coronary angiography; PC Approved (12/02-05/31) Location: [facility] STUDENT SERVICES REPRESENTATIVE 3 / [facility] VASCULAR [facility] (Cath) Providers: Cecilia Peter MD Clinical information reviewed: Tobacco Allergies Meds Med Hx Surg Hx OB Status Fam Hx Physical Exam Airway Mallampati: I TM distance: >3 FB Neck ROM: full Cardiovascular Rhythm: regular Rate: abnormal Dental Pulmonary Breath sounds clear to auscultation Abdominal Abdomen: soft Bowel sounds: normal Other findings: Bilateral radial artery pulses 2+. Anesthesia Plan ASA 3 other (Conscious sedation) Anesthetic plan and risks discussed with patient. Use of blood products discussed with patient who consented to blood products. Plan discussed with attending. Additional Equipment Requests Normal [facility] HPon 01-13-2024 - Attestation signed by Cecilia Peter MD at 01/13/2024 8:29 AM The patient is seeing electrophysiology; she may be started on new antiarrhythmic therapy. She had a stress test; this showed an abnormal EKG portion however the nuclear portion was normal with no evidence of ischemia, transient ischemic dilatation or other significant abnormalities. Risks, benefits, and alternatives for coronary angiography were discussed. She understands and wishes to proceed. Cecilia Peter MD, MPH, [facility], [facility], [facility], [facility] Interventional Cardiology Pager Email: [email or web address] H&P reviewed. The patient was examined and there are no changes to the H&P. Sharri Cooney is a 73 y.o. year old with past medical history of A-fib RVR, hypertension, dyslipidemia, and mild MR presents for ischemic work up for Afib. Patient will undergo coronary angiography. [facility] NURSNOTEjennifer 01-13-2024 ALECIANOTJosse RN educated pt on d/ c instructions. RN encouraged pt to voice any questions or concerns. Pt verbalizes no questions or concerns at this time. Pt was wheeled off of unit with all of belongings. [facility] HPon 12-14-2023 HP New order for cardia c cath [facility] Orders Onlyon 12-14-2023 Orders Only [id number] Sharri Cooney 1950 F Date Provider Department Center 12/14/2023 166-PRETTY PLAZA CARD [facility] No family history on file [facility] Telephoneon 12-10-2023 Telephone [id number] Reno 1950 F Date Provider Department Center 12/10/2023 BASSAM GAR [facility] No family history on file [facility] Orders Onlyon 11-25-2023 Orders Only [id number] Reno 1950 F Date Provider Department Center 11/25/2023 [id number], HISTORICAL CARD [facility] No family history on file Normal [facility] HPon 11-24-2023 [facility] Electrophysiology Consult Note Reason for visit: 6 [...] or signs patient was recently seen in [facility] 08/2022 for palpitations. She was found [...] palpitations, lightness, dizziness, fatigue 08/2022 ECG by [facility]- appears to be sinus tach with [...] alcohol infrequently, no significant caffeine intake, no fehq-eis-gxicvut decongestions Family history: Her mother of a brain aneurysm, no history of premature coronary artery disease, no history of arrhythmias Medications: Eliquis 5 mg p.o. twice daily, lisinopril 10/hydrochlorothiazid e 12.5 mg daily, Toprol-XL 50 mg daily, Zocor 10 mg daily ----- 03/03/[address] Mehdi estevez?herb; Afib H?PI: [...] alcohol infrequently, no significant caffeine intake, no qfsx-bta-opeique decongestions Family history: Her mother of a [...] on file Intimate Partner Violence: Unknown (08/26/2023) [place] Safety & Environment Fear of Current or Ex-Partner: Not on file Emotionally Abused: Not on file Physically Abused: Not on file Sexually Abused: Not on file Physically or Sexually Abused: Not on file Depression: Not on file Housing Stability: Not on file U (more content not included)... [facility] NURSNOTEon 11-24-2023 NURSNOTE RN educated pt on d/ c instructions. RN encouraged pt to voice any questions or concerns. Pt verbalizes no questions or concerns at this time. Pt was walked off of unit with all of belongings. [facility] Office Visiton 11-03-2023 Follow-up visit [id number] Sharri Cooney 1950 F Date Provider Department Center 11/03/2023 TURNER GAY [facility] CARD [facility] No family history on file Level of Service:37043 MA OFFICE/OUTPATIENT ESTABLISHED LOW MDM 20 MIN Reason for Visit and Comments: Follow-up [686761] Atrial Fibrillation [80] [facility] 36on 10-29-2023 36 I ordered a stress test for her along with increased metoprolol and Kcl. Also started mag oxide. Please send stress to [facility]. Please call patient and schedule her an appt with Dr. Harding at his soonest available. He said if she really wants to get in [place] with him he can see her at [place] next week while he is on Med . Thanks! Normal [facility] Telephoneon 10-29-2023 Telephone [id number] Sharri Cooney 1950 F Date Provider Department Center 10/29/[address] No family history on file Normal [facility] Office Visiton 10-28-2023 Follow-up visit [id number] Sharri Cooney 1950 F Date Provider Department Center 10/28/2023 PRETTY GALLAGHER CARD [facility] No family history on file Level of Service:25975 MA OFFICE/OUTPATIENT ESTABLISHED MOD MDM 30 MIN Reason for Visit and Comments: Atrial Fibrillation [80] Palpitations [130812] Normal [facility] Office Visiton 06-04-2023 Follow-up visit [id number] Sharri Cooney 1950 F Date Provider Department Center 06/04/2023 [facility] Pankaj [facility] No family history on file Level of Service:41074 MA OFFICE/OUTPATIENT ESTABLISHED MOD MDM 30-39 MIN Normal [facility] COVID/FLU RT-PCRon SARS-CoV-2 (COVID-19) RNA VERONICA+probe Ql (Unsp spec) Positive [employer] Other COVID/FLU RT-PCR Negative [employer] Other SGOTon 10-23-2022 AST [Catalytic activity/Vol] 45 U/L Critically high 15-37 [facility] Comment on above: Performed By: #### A LT, AST #### [facility] [address] [place] [address] Dr. Fred Treviño 10-23-2022 ALT [Catalytic activity/Vol] 48 U/L Normal 14-59 [facility] Comment on above: Performed By: #### A LT, AST #### [facility] [address] [address] [address] Fred Jackson SGOTon 09-10-2022 AST [Catalytic activity/Vol] 40 U/L Critically high 15-37 [facility] Comment on above: Performed By: #### A LT, AST #### [facility] [address] [address] [address] Fred Jackson SGPTon 09-10-2022 ALT [Catalytic activity/Vol] 52 U/L Normal 14-59 [facility] Comment on above: Performed By: #### A LT, AST #### [facility] [address] [address] [address] Fred Jackson XR DEXA BONE DENSITYon 08-25 XR DEXA BONE DENSITY DEXA Bone Density Study CLINICAL: Evaluate bone mineral density. Postmenopausal COMPARISON: FINDINGS: The bone density study was assessed by dual-energy x-ray absorptiometry with the Aer[employer] scanner. The test results are expressed in [...] RAFIQ SEALS Date: 2022-08-25 09:50 Normal [facility] BNPon 08-16-2022 Natriuretic peptide B (Bld) [Mass/Vol] 87.0 pg/mL Normal <=900.0 [facility] Comment on above: Performed By: #### T SH, CMP, BNP, CMADM ####[facility] [address] [address]Dr. Fred Jackson CARDIAC JASSI ADMITon 023 CK [Catalytic activity/Vol] 152 U/L Normal 26-192 [facility] Comment on above: Performed By: #### T SH, CMP, BNP, CMADM ####[facility] [address] [address]DrCaroline Jackson CK.MB [Mass/Vol] 2.96 ng/mL Normal <=3.60 [facility] Comment on above: Performed By: #### T SH, CMP, BNP, CMADM ####[facility] [address] [address]Dr. Fred Jackson HSTROP 6.1 pg/mL Normal 4.0-51.3 [facility] Comment on above: Result Comment: CUT- OFF POINTS HAVE BEEN ESTABLISHED BASED ON THE FOURTH UNIVERSAL DEFINITIONS OF MYOCARDIAL INFARCTION. THE UPPER REFERENCE LIMIT (URL) OF TROPONIN, DEFINED THE 99TH PERCENTILE OF cTnI DISTRIBUTION IN A REFERENCE POPULATION, HAS BEEN CONFIRMED THE DECISION THRESHOLD FOR VA DIAGNOSIS. Performed By: #### T SH, CMP, BNP, CMADM ####[facility] [address] [address]Dr. Fred Jackson ANGELI 80 ng/mL Normal 9-82 [facility] Comment on above: Performed By: #### T SH, CMP, BNP, CMADM ####[facility] [address] [address]Dr. Fred Jackson CBC AUTO DIFFon 08-16-2022 BASO # 0.1 103/ul Normal 0.0-0.1 [facility] Comment on above: Performed By: #### C BC #### [facility] [address] [address] [address] Fred Jackson Basophils/100 WBC (Bld) 1.4 % Normal 0.2-2.0 [facility] Comment on above: Performed By: #### C BC #### [facility] [address] [place] [address] Dr. Fred Jackson EO # 0.3 103/ul Normal 0.0-0.7 [facility] Comment on above: Performed By: #### C BC #### [facility] [address] [address] [address] Fred Jackson Eosinophils/100 WBC (Bld) 3.1 % Normal 0.9-7.0 [facility] Comment on above: Performed By: #### C BC #### [facility] [address] [place] [address] Dr. Fred Jackson Erythrocyte distribution width (RBC) [Ratio] 12.0 % Normal 11.0-15.0 [facility] Comment on above: Performed By: #### C BC #### [facility] [address] [place] [address] Dr. Fred Jackson Hematocrit (Bld) [Volume fraction] 40.5 % Normal 36.0-48.0 [facility] Comment on above: Performed By: #### C BC #### [facility] [address] [place] [address] Dr. Fred Jackson Hemoglobin (Bld) [Mass/Vol] 13.8 g/dL Normal 12.0-16.0 [facility] Comment on above: Performed By: #### C BC #### [facility] [address] [address] [address] Fred Jackson IG # 0.06 10e3/ul Critically high 0.00-0.03 [facility] Comment on above: Performed By: #### C BC #### [facility] [address] [place] [address] Dr. Fred Jackson IG % 0.6 % Critically high 0.0-0.5 [facility] Comment on above: Performed By: #### C BC #### [facility] [address] [place] [address] Dr. Fred Jackson LYMPH # 3.8 103/ul Normal 1.2-3.8 [facility] Comment on above: Performed By: #### C BC #### [facility] [address] [place] [address] Dr. Fred Jackson Lymphocytes/100 WBC (Bld) 36.6 % Normal 20.5-60.0 [facility] Comment on above: Performed By: #### C BC #### [facility] [address] [place] [address] Dr. Fred Jackson MANUAL DIFF REQ NO Normal [facility] Comment on above: Performed By: #### C BC #### [facility] [address] [address] [address] Fred Jackson MCH (RBC) [Entitic mass] 31.2 pg Normal 26.7-34.0 [facility] Comment on above: Performed By: #### C BC #### [facility] [address] [place] [address] Dr. Fred Jackson MCHC (RBC) [Mass/Vol] 34.1 g/dL Normal 29.9-35.2 [facility] Comment on above: Performed By: #### C BC #### [facility] [address] [place] [address] Dr. Fred Jackson MCV (RBC) [Entitic vol] 91.6 fL Normal 81.0-99.0 [facility] Comment on above: Performed By: #### C BC #### [facility] [address] [place] [address] Dr. Fred Jackson MONO # 1.2 103/ul Critically high 0.3-0.8 [facility] Comment on above: Performed By: #### C BC #### [facility] [address] [place] [address] Dr. Fred Jackson Monocytes/100 WBC (Bld) 11.3 % Normal 1.7-12.0 [facility] Comment on above: Performed By: #### C BC #### [facility] [address] [place] [address] Dr. Fred Jackson NEUT # 4.9 103/ul Normal 1.4-6.5 [facility] Comment on above: Performed By: #### C BC #### [facility] [address] [place] [address] Dr. Fred Jackson Neutrophils/100 WBC (Bld) 47.0 % Normal 43.0-75.0 [facility] Comment on above: Performed By: #### C BC #### [facility] [address] [place] [address] Dr. Fred Jackson Platelet mean volume (Bld) [Entitic vol] 8.9 fL Critically low 9.5-13.5 [facility] Comment on above: Performed By: #### C BC #### [facility] [address] [place] [address] Dr. Fred Jackson PLT 404 103/ul Normal 150-450 [facility] Comment on above: Performed By: #### C BC #### [facility] [address] [place] [address] Dr. Fred Jackson RBC 4.42 106/ul Normal 4.20-5.40 [facility] Comment on above: Performed By: #### C BC #### [facility] [address] [address] [address] Fred Jackson WBC 10.3 103/ul Normal 4.0-11.0 [facility] Comment on above: Performed By: #### C BC #### [facility] [address] [address] [address] Fred Jackson PROF 14(COMP METB)on 023 Albumin [Mass/Vol] 4.3 g/dL Normal 3.4-5.0 [facility] Comment on above: Performed By: #### T SH, CMP, BNP, CMADM ####[facility] [address] [address]Dr. Fred Jackson Albumin/Globulin [Mass ratio] 1.2 {ratio} Normal [facility] Comment on above: Performed By: #### T SH, CMP, BNP, CMADM ####[facility] [address] [address]Dr. Fred Jackson ALP [Catalytic activity/Vol] 96 U/L Normal 46-116 [facility] Comment on above: Performed By: #### T SH, CMP, BNP, CMADM ####[facility] [address] [address]Dr. Fred Jackson ALT [Catalytic activity/Vol] 34 U/L Normal 14-59 [facility] Comment on above: Performed By: #### T SH, CMP, BNP, CMADM ####[facility] [address] [address]Dr. Fred Jackson Anion gap [Moles/Vol] 16.6 mmol/L Normal [facility] Comment on above: Performed By: #### T SH, CMP, BNP, CMADM ####[facility] [address] [address]Dr. Fred Jackson AST [Catalytic activity/Vol] 39 U/L Critically high 15-37 [facility] Comment on above: Performed By: #### T SH, CMP, BNP, CMADM ####[facility] [address] [address]Dr. Fred Jackson Bilirubin [Mass/Vol] 0.8 mg/dL Normal 0.2-1.0 [facility] Comment on above: Performed By: #### T SH, CMP, BNP, CMADM ####[facility] [address] [address]Dr. Fred Jackson Calcium [Mass/Vol] 10.1 mg/dL Normal 8.5-10.1 [facility] Comment on above: Performed By: #### T SH, CMP, BNP, CMADM ####[facility] [address] [address]Dr. Fred Jackson Chloride [Moles/Vol] 91 mmol/L Critically low 98-107 [facility] Comment on above: Performed By: #### T SH, CMP, BNP, CMADM ####[facility] [address] [place], [place] [address]Dr. Fred Jackson CO2 [Moles/Vol] 25.5 mmol/L Normal 21.0-32.0 [facility] Comment on above: Performed By: #### T SH, CMP, BNP, CMADM ####[facility] [address] [place], [place] [address]Dr. Fred Jackson Creatinine [Mass/Vol] 0.95 mg/dL Normal 0.55-1.02 [facility] Comment on above: Performed By: #### T SH, CMP, BNP, CMADM ####[facility] [address] [place], [place] [address]Dr. Fred Jackson EGFR-AF DANISH >60 Normal >=60 [facility] Comment on above: Performed By: #### T SH, CMP, BNP, CMADM ####[facility] [address] [place], [place] [address]Dr. Fred Jackson EGFR-NON AF DANISH 58 mL/min/1.73m2 Critically low >=60 [facility] Comment on above: Performed By: #### T SH, CMP, BNP, CMADM ####[facility] [address] [place], [place] [address]Dr. Fred Jackson Globulin (S) [Mass/Vol] 3.6 g/dL Normal [facility] Comment on above: Performed By: #### T SH, CMP, BNP, CMADM ####[facility] [address] [address]Dr. Fred Jackson Glucose [Mass/Vol] 116 mg/dL Critically high 74-106 [facility] Comment on above: Performed By: #### T SH, CMP, BNP, CMADM ####[facility] [address] [address]Dr. Fred Jackson Potassium [Moles/Vol] 3.1 mmol/L Critically low 3.5-5.1 [facility] Comment on above: Performed By: #### T SH, CMP, BNP, CMADM ####[facility] [address] [place], [place] [address]Dr. Fred Jackson Protein [Mass/Vol] 7.9 g/dL Normal 6.4-8.2 [facility] Comment on above: Performed By: #### T SH, CMP, BNP, CMADM ####[facility] [address] [address]Dr. Fred Jackson Sodium [Moles/Vol] 130 mmol/L Critically low 136-145 [facility] Comment on above: Performed By: #### T SH, CMP, BNP, CMADM ####[facility] [address] [address]Dr. Fred Jackson Urea nitrogen [Mass/Vol] 17.0 mg/dL Normal 7.0-18.0 [facility] Comment on above: Performed By: #### T SH, CMP, BNP, CMADM ####[facility] [address] [address]Dr. Fred Jackson Urea nitrogen/Creatini ne [Mass ratio] 17.9 mg/mg Normal [facility] Comment on above: Performed By: #### T SH, CMP, BNP, CMADM ####[facility] [address] [address]Dr. Fred Jackson PROTIMEon 08-16-2022 INR Coag (PPP) [Relative time] 1.01 {INR} Normal [facility] Comment on above: Performed By: #### P TT, PT ####[facility] [address] [address]DrCaroline Jackson INR GUIDELINES SEE BELOW Normal [facility] Comment on above: Result Comment: DOTTY RED INR: 2.0 - 3.0 CONDITIONS NOT LISTED BELOW 2.5 - 3.5 FOR PROSTHETIC HEART VALVE REPLACEMENT 2.5 - 3.5 RECURRENT THROMBOSIS Performed By: #### P TT, PT ####[facility] [address] [id number] Jackson PT Coag (PPP) [Time] 10.7 s Normal 9.0-11.6 [facility] Comment on above: Performed By: #### P TT, PT ####[facility] [address] [address]DrCaroline Jackson PTTon 08-16-2022 aPTT Coag (Bld) [Time] 33.9 s Normal 22.3-36.2 [facility] Comment on above: Performed By: #### P TT, PT ####[facility] [address] [address]DrCaroline Jackson TROPONIN, HIGH SENSITIVITYon 08-16-2022 HSTROP 15.1 pg/mL Normal 4.0-51.3 [facility] Comment on above: Result Comment: CUT- OFF POINTS HAVE BEEN ESTABLISHED BASED ON THE FOURTH UNIVERSAL DEFINITIONS OF MYOCARDIAL INFARCTION. THE UPPER REFERENCE LIMIT (URL) OF TROPONIN, DEFINED THE 99TH PERCENTILE OF cTnI DISTRIBUTION IN A REFERENCE POPULATION, HAS BEEN CONFIRMED THE DECISION THRESHOLD FOR [facility] DIAGNOSIS. Performed By: #### H STROPN #### [facility] [address] [place], [place] [address] Dr. Fred Jackson TSHon 08-16-2022 TSH 4.364 uIU/mL Critically high 0.358-3.740 [facility] Comment on above: Performed By: #### T SH, CMP, BNP, CMADM ####[facility] [address] [address]Dr. Fred Jackson XR CHEST 1 Von 08-16-2022 [...] DALI MYERS Date: 2022-08-16 00:02 Normal [facility] Covid-19 PCR (CVDTBH)on 03-06 SARS-CoV-2 (COVID-19) RNA VERONICA+probe Ql (Unsp spec) Detected Critically abnormal NOT DETECTED [facility] Comment on above: Result Comment: This test is not yet approved or cleared by the [place] FDA. When there are no FDA-approved or cleared tests available, and other criteria are met, FDA can make tests available under an emergency access mechanism called an Emergency Use Authorization (EUA). The EUA for this test is supported by the [place] of Health and Human Service's (HHS's) declaration [...] longer be used). Performed By: #### [facility] ####[facility] [id number] [place], [place] [address]FyCaroline Fred Jackson US CAROTID ART BILon 022 [...] by: TIFFANIE LEON Date: 2022-03-12 14:51 Normal [facility] MAMM SCREEN 3D JASMEET CADon 02-09-2022 MG MAMM SCREEN 3D JASMEET CAD Patient: SHARRI COONEY Exam Date: 02/09/2022 : 1950 Gender:F Ordering : DR RINKU PETERSON . Admission #: [id number] Family : Order #: [id number] CLICK HERE TO VIEW EXAM RADIOLOGY REPORT [...] prostate cancer at age 60. LOCATION: [facility] BREAST COMPOSITION: Heterogeneously dense,which may obscure small [...] [facility] Coding Summary.on 03-12-2021 Coding Summary. [id number] G h0bWw+PGhlYWQ+AI0JPML gE81spULheH9VM2qFWV7J FLBNDYKFHG7CKG0leWD1A PyiO6EfzyYo FfcocPMqUO32BVu9XIX5y JclLEohbO3pyEJiY9v8Rp RqJG33mJ45CObzUIMdWiU 3LjZpbjsgbWFy C6dzCvJtnAJlIql+PHRhY mxlIHdpZHRoPScxMDAlJy VqnAczDW0qCx4lZDNzGTK vbGxhcHNlOiBj y6saHGSxMQyoLW8ayMecQ 6CjqBO9WGGee1x8Na21hP I+PZTtXMC6bOutICvqz66 9KpRnd4psZVU1 vGJjDQiwOOE2X19wl8A5F DElAXKnDYW0pEP0qS9kfW hdzpisY2EimTCqToF1GTB 9zVBkkQ0dhMyk yzdanV2sPgg+G08VVE0OT KESCS5UXjb0B4XmSyqinJ I+TL59AXJeAQ08hOQdwQE qz6xalZs4RzBk XBWtCHG1bEdfZEqgp8NmA QOdB42ulMHze8X7DKLdvJ lcdSZbJuOpyOC2lJ3kQEd anrvfi1tesvjm Hpnfi1frij74eQ94Z88iZ RrqHPEeTIQ7XWJqWLUseS kjxp4qxB9lUc9+XHvco0i nl5qvmWl9KsTy RVZjepDspXuhTSZ2b3TuX c99D7QxvFekp9LpBlq9cd 79jGMtn4O8uER7VCzmXCQ utB6sMZjyGpY5 EVPsHqDewV62dSSaOPfmS a6tqXrxtIfcEG1kHASepv ngXVHoaI1dMEUxyIEplYd pUR4cCYUzvusf m422KaVlQPX3VPXbfYEwB 2QpaE8yBqFjFGWoWGEwR8 HluQFlTWghY533XZtvQbR 6IYUnkkVzI4Ng UXSdeBrxIlO0q2C5Gb4Im 8BhlzsjNUG4ENmeLRV5Xm B7GnAvDaU7Y9SwDzc3YJL fqEczXT6aG3Bg AAQvlrwjgqirgEK8JULbX JLcuT47mJElRVjcBs5wm3 U2u015OHVmSAWlnG58Gx3 udDogMTBwdCBU xE2oumjcp6efohrwAyImA NHwIWl2FFk7EDHitZatRv KyTYQ1FgT5DBO9iJBwgI9 mwAszdrodsT1z Oyc+Q52ifX8kOSZ9RDI9j lioRUFkfsVzHS40SW83R7 RyPjwvdGFibGU+PGRpdiB ktYoqIL1xKtYe a9jpc7CyUSmwY0XpJGVvC FylVok4FHSeAQC6uBZ7cR 8wBTExSLdmu0S8dNC0X3T mgzVlyf1rk5jd JSXtPSkbN56geFMqk6M5N KLuvZJ8IIEltYivGwQboO 93Oyc+EGCrrZjks8ToDfv zi9upj0peqBt9 ArHuCSYagsEjiNrxLJJ4w 3SiKq59A76nBTbjMFTdVA YsWYOmIWGrrWsuzs8fbL8 wIi8+PGNvbCB3 qLX5xY5jOSXlSpK8OScoV 548RkKwzLEvJhssr6alo6 rjhLa4CeWoKECyefMhqEi aQPV2x4AwKt12 V23yOYpcWGFrIMEkXXSiT WEiiHgxfi3dbA9dLr2+PC 4hq7doij40tE43rLE+PHR wDQP6gLdbEAuu PWPegG0iDEmzYrN9NEWiQ aTknE13dKThLBqfDg2jyL gaiPqxFU1sJZPyzaqro20 6PnPrx2tiDQNr aIHsWOrjYHZ9M03ik0W3P XLuFMHvBBR3dHR5eM9ouY lnbjogbGVmdDsgdmVydGl jXMkiPWbuF095 IHRvcDsnPlBhdGllbnQgT mEvEZf8U7XpTva1BFLbcP chXQ6ozQDsAQkhBy3ppPd jpJkhXA1rRQNi gtgul476DsWbh4xdBRZqi JAtHOnbZKW6U18gn1U7JG PnEDXdSCA7nCS3gM4yeCz nbjogbGVmdDsg dpQfdNppQEnxLFizU330H HRvcDsnPkJpcnRoIERhdG G8MR42NV85kRFgu3K8eTX 9M7AzSEEncktf axrgbOY5RNCfSQZvoZ59A h5adIioHc2kRULmLTH3LC NgoXYjA8SzcE1kKyKbUXL nTFGzE1BdcWAn PQcsS811FEncQrG5GIPoz pYjO5NpJKFipYsgTjL7d0 L5Nj9JD1D8LT31UE08sCP yj0H1oUH2Y1Dg XATxnwopvbgjmMN6HDEcQ SPkeU42Eg4zeIwxMu3nCP CsEOD0UWHxwHZoO3BblU6 yOiAjMDAwMDAw P1WodLTdHPnyS222DMmgW cQ6JNVjywZeN6LaJTYorW ohTrU1b8C9Uh1BKDn1HD8 8TT27zEXuy3M9 xQQ1E1WvBBWmdilgyhlje PH4ULEzLXRuoB92Zu9kvQ goPu0tPSXtPRD8HAYcmWG mR2MkcV0gMiJh MIFlWJIoB2GroPYtBEkbG 261RHquKwW9KJEfvrZeB8 VrLKBhcYrgRhV2c2Q9Ct9 IVGFaRE17TRF5 bEX0UU57QY29C4VePpdbh GFibGU+PHRhYmxlIHdpZH RoPScxMDAlJyBzdHlsZT0 bWl2xDWMnMDCa qWqalOIiJiJkb0enVHFrB IhiDJ7siEdaH3VohRN0IB Tng4r1Am85J11vN4HayJT +BBMrnCB3eMO2 xM1yQnEdLzQ2WEctS924L iGxsYJsXhbuh2kpq7hihM m4AkT3EUWbduCsvFqvWTG 3o1JtUs26B58t IHdpZHRoPSIxNSUiIHZhb Dzzug7xdF0cGo1+PGNvbC S1nTF9jF6bZkQwRsQ4QQd oW219KxPpvSRt Aasgx6iss6cezJh3OyUnI XXdfmPydTzdTGB2j8EtIr 43X1WynEzit4ZgTmn4bp1 8sUFff2Q6qGE8 I5VoEZRodxbthOTigUgmH A1sXDRcqmuiQCDsjN6ePR EiP9m5GsQkSdL1PMkqE6H efzE4WTFojJOi OWczIZF7D71go6Y0IPYpS FGxVHT5dPA9zI5weSkqtu ogbGVmdDsgdmVydGljYWw fLMbxM720HZEu yHriQPZrbL8eGMYtaCNdx VeyPP8jRYDgqxlpEcDEEx AJQVofAXALGvPZXeD1A2L cWab3HFHnrSjw UD6fqGAtJMukOp3dnKlza OrdGA1hAXDqyzgdROGmsP 8gZKPrwEFdcFpjOV9zKZS jgzasj948VwUm PHA4DEKpsHElJ8DasO8lL fEnJTEsYFBzT1QftIOnZJ dcR515SJdbDuM2IVGyllA qE2RfPRWveKeu PhZ7r6V4Ms4fOv0rAJ6mW WWdPT91HA35uKTfl9B6rA G8N2ZfCFVxfrssnvjofSL 2PQZpXOYhjD77 xQEfVXgrCl9wf1X7k754Z FWuZKFblO60Ds1lgGapPH CcsLGUmE4qlyzuq3hfqtu gIzAwMDAwMDt0 IFh8IVSzkLwsFdNqWKK5G nW3JXI1rYXnmA0fyTzoiw rvjT0mGqq+NjggWWVhcnM 5Q1CkGnt5QCQe gJomKX7kbYItXAhgNp3ig DqkaLzbYP4rZYTnyyrvAX CceW2fEYTqbFByjQzjFA8 kDBTjnfrxd301 RuMdGJI4LUQaiEQxX7Isr W6eAfQkKRTmTSWsS2EbpT VfAXqvA473HNylYwE1NIB ubkSbK8VoKXRj sFwfJqI6k6X2Ac6KUQ9xg MF9G2GzTqu5ZZYwtUgxUC 3huEVcDOctCx9wtEhfsBq lWS1iNDVgreax VGDfoY4oBVQffSYzrUujX R9oDSDwmngiw057MhHhAA U3ISStsYYkH9VrvN8cLiJ cCOSbOOZzB6Cu vQFfAWfkT063NCyuFwC7B MTwluNjI6UdKUJrrQbpIl G8g5X6Iz3FURByQQDbeYZ eJoI2F7OuBezm dHI+KN11FGNfAF19gJYeh PJpo3pkjEa0PiOsEUChHD I4gSukDZalk9RdBYGsH33 dpWTdl7V3RDRw iRfokSEzSsHriHM8vG6pB Mtitpywj8tpqoppBslsp8 hoga60gF42F25aHBxmFGN oPSIzMCUiIHZh rQrovx1xwR9xDk6+PGNvb JP3iAR3uO7qAnZbZjD1TY zdT515DaMlsZZmVfqwu0z rh1ufsWl4QqIo ANUwxjKdnBlqSBN3l6QaG s55D39yJJcrKVVyEOErOM TsGIQpuCiwmg6dpQ1lZc7 +BV9uf5sydg61 mP74tYB+CLQuVKR2eBqkS ShiOKRmfK8nNCsmQhV8DK NaAbOzaA07kRLjZDnlJr1 smCcwyMhwBC6q FNZbqfyop647NhDns8iuG GArfJXyWCkgFMN5L44za0 R9UTJcOLHbIEB0lAB0xM1 hbGlnbjogbGVm dDsgdmVydGljYWwtYWxpZ 506ZOVvzHkeJvDbnZFoR3 myxvNZVD0kTfrceTO+PHR jLLG8gVdwHFom AQBjiQ2mQPNsF4l0ArAsO jA8HPizJ0HwoaD6AIRgbX AxYVLqbBTIgX3oaypkh0d vcjogIzAwMDAw FYk4WGr7NORlgTvbGlOmM ZQ7GwM5WKW1oJTskS7wtZ gqlbfpmY7mSyk+RklOOjw vdGQ+PHRkIHN0 jSlpATjjGMZezQ7wRLHhX 6p4UoJrDpX4EYqkY6Rvrd L4XPMenQZgRAJmzLNXzP5 mlnzpy9zdbtys EiChAPMfCNx5YXr6WCUpb DnjTmWjEJX1HoG6FWE4sT QorG9swMbjcmvgyT5hHll +TVJOOjwvdGQ+ RVUlKME9oOjiEXrqIQGqk B7cVYPbX6v3UcCsSxO6JM kfK8GjfaH6UPFitCVlBVM sxRWOhT4enfxy m7kffchfShNjKZGlYNh2W Gl5PGJedOswSpErJSE7Si K1UFK1dWTalN8gxPhommo qiI8aQdy+UGF5 BCE4EQ31RH73D1YePxrwj GFibGU+PHRhYmxlIHdpZH RoPScxMDAlJyBzdHlsZT0 zVl4gEXBbZMTu bGxh (more content not included)... [facility] Physician Orderon 02-19-2021 Physician Order [id number]# [id number]:127 Normal [facility] Vital Signs Date Time Vital Sign Value Performing Clinician Facility 04-22-2023 12:20-0400 Body height 153.67 cm Broderick Solomon Other [facility] Other 04-22-2023 12:20-0400 Body mass index (BMI) [Ratio] 24.58 kg/m2 Broderick Solomon Other [facility] Other 04-22-2023 12:20-0400 Body temperature 98.3 [degF] Broderick Solomon Other [facility] Other 04-22-2023 12:20-0400 Body weight 58.06 kg Broderick Solomon Other [facility] Other 04-22-2023 12:20-0400 Respiratory rate 18 /min Broderick Solomon Other [facility] Other 04-22-2023 12:20-0400 SaO2% (BldA) [Mass fraction] 96 % Broderick Solomon Other [facility] Other Encounters Encounter Date Encounter Type Care Provider Facility Start: 02-01-2024 End: 02-01-2024 ambulatory [facility] Start: 01-13-2024 End: 01-13-2024 ambulatory [facility] Start: 12-10-2023 End: 12-10-2023 ambulatory [facility] Start: 12-06-2023 End: 12-06-2023 ambulatory TITA SHELDON Not Available Start: 11-24-2023 End: 11-24-[address] [facility] Start: 11-03-2023 ambulatory TURNER HARDING [facility] Start: 10-28-2023 End: 10-28-2023 ambulatory PRETTY PLA[facility] Start: 06-04-2023 End: 06-04-2023 ambulatory KATE BRODERICK [facility] Start: 04-22-2023 End: 04-22-2023 ambulatory Broderick Solomon Other [facility] Other Start: 04-22-2023 Office outpatient vi sit 15 minutes Broderick Solomon [facility] Start: 10-23-2022 End: 10-24-2022 ambulatory LEAH SEALS [...] acellular pertussis vaccine, adsorbed Broderick Solomon Other [facility] Other Payers Date Payer Category Payer Medicare [id number] 1950 Unknown [id number] 2.16.84 [id number] 1950 Unknown [id number] 2.16.84 [id number] 1950 Unknown [id number] 2.16.84 [id number] 1950 Unknown [id number] 2.16.84 [id number] 1950 Unknown [id number] 2.16.84 [id number] 1950 Unknown [id number] 2.16.84 [id number] 1950 Unknown [id number] 2.16.84 [id number] 1950 Unknown [id number] 2.16.84 [id number] Social History Date Type Detail Facility Unknown if ever smoked [facility] Other Sex Assigned At Sex Assigned At Bir th [facility] Other Clinical Notes 04-22-2023 to 02-01-2024 Note Date & Type Note Facility 02-01-2024 Note [facility] Consult Note Reason for visit: PAF/MR/HTN/HLD 02/01/2024 Since last seen she has been doing well. We reviewed her heart cath findings. Her BP is elevated in clinic. At home her BP runs 90-110s/60-70s. Denies c/o CP, dyspnea, orthopnea, PND, LE edema, dizziness/LH, palpitations, syncope. 10/28/2023 She recently went on a cruise [...] or signs patient was recently seen in [facility] 08/2022 for palpitations. She was found [...] palpitations, lightness, dizziness, fatigue 08/2022 ECG by [facility]- appears to be sinus tach with [...] alcohol infrequently, no significant caffeine intake, no mmok-bnk-kpqtgji decongestions Family history: Her mother of a brain aneurysm, no history of premature coronary artery disease, no history of arrhythmias Medications: Eliquis 5 mg p.o. twice daily, lisinopril 10/hydrochlorothiazide 12.5 mg daily, Toprol-XL 50 mg daily, Zocor 10 mg daily 03/03/[address] Mehdi barreto; Afib H?PI: 71-year-old woman with HTN was [...] alcohol infrequently, no significant caffeine intake, no mivw-tph-lymopbm decongestions Family history: Her mother of a [...] Determinants of Health Tobacco Use: Low Risk (01/04/2024) Patient History Smoking Tobacco Use: Never Smokeless Tobacco Use: Never Passive Exposure: Not on file (more content not included)... [facility] 02-01-2024 Note Patient here for fol low up heart cath with Dr. Peter on 01/13/2024. Says she's been feeling good. Denies chest pain, SOB, palpitations, lightheadedness/syncope, and bleeding on Eliquis. BP's from home are low at times. Review of Systems All other systems reviewed and are negative. [facility] 01-13-2024 Note Cardiovascular Labor atory Report FINAL IMPRESSIONS: Angiographically nonobstructive coronary arteries Normal global left ventricular systolic function by noninvasive imaging RECOMMENDATIONS: Aggressive cardiovascular risk factor modification Optimal medical therapy for mild coronary disease should include aspirin, moderate intensity statin therapy, plus or minus an angiotensin-converting enzyme inhibitor/receptor lucretia She is to follow-up with Dr. Turner Harding and [place] CNP in the next 2 to 4 weeks Follow-up with Dr. Peter as scheduled PROCEDURES: Ultrasound-guided access to the left radial artery, bilateral selective coronary angiography via a left radial approach METHODS: After risks, benefits, and alternatives were explained, written informed consent was obtained. The patient was prepped and draped in usual sterile fashion over the left wrist. Local infiltration anesthesia was achieved of the left wrist. Using a micropuncture kit, access to the left radial artery was obtained. A 6 Nigerien glide sheath was inserted without difficulty. Difficulty advancing the [place] wire was encountered; therefore the wire was removed. Angiography was performed via the JR catheter. This revealed tortuosity. A soft angled Glidewire was used to traverse the tortuosity. Bilateral selective coronary angiography was performed using JR 4.0 and JL 4.0 catheters. After reviewing the images, it was elected to conclude the procedure. The catheters were removed. The radial sheath was removed with application of a TR band per protocol to achieve optimal hemostasis. FINDINGS: Hemodynamics: AO 114/65 [94] LEFT VENTRICULOGRAPHY: This was not performed. Ejection fraction is normal by noninvasive stress test. CORONARY ARTERIES: Left main coronary artery: This arises from the left coronary cusp and bifurcates into the left anterior descending and left circumflex coronary arteries. It is free of significant stenoses. Left anterior descending coronary artery: This shows luminal irregularities throughout. No high-grade stenosis is seen. Left circumflex coronary artery: This is angiographically nonobstructive. Right coronary artery: This is a dominant vessel arising from the right coronary cusp and giving rise to the posterior descending and posterolateral branches. It is angiographically nonobstructive. INDICATIONS: Abnormal stress test [facility] 12-14-2023 Note [facility] FYI - I made patient aware that we will proceed with coronary angiogram. I placed the orders but EPIC is being EPIC and won't let me close the encounter so working with IT on this. Thx [facility] 11-25-2023 Note EKG portion was posi tive for inferior ischemia. Nuc imaging was negative for ischemia. Her sx's are dyspnea. We are looking to start flecanide for her for her a.fib. Should we proceed with cath or coronary CTA? Thanks! [facility] 11-25-2023 Note Do we have the exerc ise portion results? [facility] 11-24-2023 Note LOOP IMPLANT PROCEDU RE NOTE DATE OF PROCEDURE: 11/24/23 PERFORMING PHYSICIAN: Dr. Turner Harding BUSINESS APPLICATIONS ANALYST: NA INDICATIONS FOR PROCEDURE: 1. SVT/AF surveillance [...] the sternum on the left using the [employer] tool. The loop recorder was then injected [...] the incision. Turner Harding MD Cardiac Electrophysiology. [facility] 11-03-2023 Note [facility] Consult Note Reason [...] or signs patient was recently seen in [facility] 08/2022 for palpitations. She was found [...] palpitations, lightness, dizziness, fatigue 08/2022 ECG by [facility]- appears to be sinus tach with [...] alcohol infrequently, no significant caffeine intake, no urcv-xww-pmliiwm decongestions Family history: Her mother of a [...] alcohol infrequently, no significant caffeine intake, no mqln-qee-saqnwgj decongestions Family history: Her mother of a [...] on file Intimate Partner Violence: Unknown (08/26/2023) [place] Safety [employer] [place] Fear of Current or Ex-Partner: Not on file Emotionally Abused: Not on file Physically Abused: Not on file Sexually Abused: Not on file Physically or Sexually Abused: Not on file Depression: Not on file Housing Stability: Not on file U (more content not included)... [facility] 10-28-2023 Note [facility] Consult Note Reason [...] or signs patient was recently seen in [facility] 08/2022 for palpitations. She was found [...] palpitations, lightness, dizziness, fatigue 08/2022 ECG by [facility]- appears to be sinus tach with [...] alcohol infrequently, no significant caffeine intake, no mopi-dhx-osqqhqj decongestions Family history: Her mother of a [...] alcohol infrequently, no significant caffeine intake, no pvgz-mij-efmvqty decongestions Family history: Her mother of a [...] Intimate Partner Violence (more content not included)... [facility] 10-28-2023 Note Patient here for [facility] ED for afib. Says she recently [...] All other systems reviewed and are negative. [facility] 06-04-2023 Note [place] [facility] Consult Note Reason for visit: 6 [...] or signs patient was recently seen in [facility] 08/2022 for palpitations. She was found [...] palpitations, lightness, dizziness, fatigue 08/2022 ECG by [facility]- appears to be sinus tach with [...] alcohol infrequently, no significant caffeine intake, no xswn-aej-tqrxuld decongestions Family history: Her mother of a [...] alcohol infrequently, no significant caffeine intake, no fktg-inf-nkvggkx decongestions Family history: Her mother of a [...] (Eliquis) 5 m (more content not included)... [facility] 06-04-2023 Note Patient here for [...] All other systems reviewed and are negative. [facility] 04-22-2023 Evaluation note Encounter Date [...] see your pcp. Take tylenol as needed. [facility] Other History general Narrative - Reported* Type Description Date Medical History HTN Medical History HYPERLIPIDEMIA Medical History SHINGLES Medical History GUILLAIN-BARRE SYNDROME Medical History Afib Surgical History TUBALIGATION Surgical History EYE SURGERY Surgical History MACULAR HOLE Surgical History LUMP REMOVED FROM LEFT BREAST Surgical History bunionectomy Hospitalization History 3 CHILD BIRTHS Hospitalization History GUILLAIN-BARRE SYNDROME [facility] Other Summary Purpose Family History No Family History Records FoundNo Family History Records FoundNo Family History Records FoundNo Family History Records Found Advance Directives No Advanced Directives Records FoundNo Advanced Directives Records FoundNo Advanced Directives Records FoundNo Advanced Directives Records Found Additional Source Comments INFORMATION SOURCE (unrecogn ized section and content) DATE CREATED AUTHOR [facility]/13/2021 [facility] DATE CREATED AUTHOR AUTHOR'S ORGANIZ ATION 10/30/2022 [facility] DATE CREATED AUTHOR AUTHOR'S ORGANIZ ATION 12/07/2023 [facility] DATE CREATED AUTHOR AUTHOR'S ORGANIZ ATION 02/03/2024 [facility] REASON FOR VISIT (unrecogniz ed [...] BE BASED ON THE PRIMARY CLINICAL RECORDS. [facility]. provides no warranty or guarantee of the accuracy or completeness of information in this document.
--- NOTE | 2024-02-17 10:09 | MM_ITS ---
Patient Name: MADAN COONEY MR#: [id number] : 1950 Exam Date: 02/17/2024 Ordering Doctor: DR Theo Ley . RADIOLOGY REPORT PROCEDURE: MM TOMOSYNTHESIS SCREENING BI COMPARISON: MM TOMOSYNTHESIS SCREENING BI, 02/10/2023. MG MAMM SCREEN 3D JASMEET CAD, 02/09/2022. MG MAMM SCREEN 3D JASMEET CAD, 02/03/2021. MG MAMM SCREEN JASMEET W CAD, 01/21/2015. INDICATIONS: Screening Calculator Name NCI Breast Cancer Risk Assessment Tool 5 Year Breast Cancer Risk 1.70% Lifetime Breast Cancer Risk 4.70% Personal Breast Cancer No Personal Ovarian Cancer No Treatments None Family Cancers Father with prostate cancer at age 58. LOCATION: [facility] BREAST COMPOSITION: The breasts are heterogeneously dense,which may obscure small masses. FINDINGS: DIAGNOSTIC CATEGORY 1--NEGATIVE. RIGHT BREAST: No significant suspicious finding. No significant change has occurred. LEFT BREAST: No significant suspicious finding. No significant change has occurred. RECOMMENDATIONS: ROUTINE MAMMOGRAM AND CLINICAL EVALUATION IN 12 MONTHS. PLEASE NOTE: A NORMAL MAMMOGRAM DOES NOT EXCLUDE THE POSSIBILITY OF BREAST CANCER. A CLINICALLY SUSPICIOUS PALPABLE LUMP SHOULD BE BIOPSIED. Dictated by: Leander Donahue M.D. on 02/18/2024 at 09:55 Approved by: Leander Donahue M.D. on 02/18/2024 at 09:56
== END 2024-02-17 10:06 | disposition home or self-care (01) ==
LOC: MAMMO 10:05
PROVIDERS: PCP Internal Medicine; Visit Provider Obstetrics & Gynecology
DX: Z12.31 Encounter for screening mammogram for malignant neoplasm of breast (principal); Z80.42 Family history of malignant neoplasm of prostate
CPT/HCPCS: 77063; 77067

== ENCOUNTER 2024-03-09 08:53 | Outpatient (OUT) | payer MEDICARE, SELFPAY ==
--- OUTSIDE RECORDS SUMMARY | 2024-03-09 09:02 | XMS_ITS | CCD ---
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 Name Role Phone DIONY ., DR DOBBS [...] Unavailable HOY ., DR DOBBS Attending Unavailable ATHENS, DR RAFIQ Chi Consulting Unavailable LEAH SEALS Consulting Unavailable LEAH SEALS Attending Unavailable LEAH SEALS Admitting Unavailable HOY ., DR DOBBS Primary Care Unavailable LEAH SEALS Consulting Unavailable LEAH SEALS Attending Unavailable LEAH SEALS Admitting Unavailable HOY ., DR DOBBS Primary Care Unavailable HOY ., DR DOBBS Consulting Unavailable HOY ., DR DOBBS Attending Unavailable HOY ., DR DOBBS Admpop Unavailable HODeborah ., DR DOBBS Primary Care Unavailable RAFIQ SEALS Consulting Unavailable MYRA LEUNG Attending Unavailable MYRA LEUNG Admitting Unavailable HOY ., DR DOBBS Primary Care Unavailable MYRA LEUNG Consulting Unavailable Broderick Solomon Unavailable TITA SHELDON Attending Unavailable ELTAHAWY, EHAB Attending Unavailable ELTAHAWY, EHAB Admitting Unavailable ELTAHAWY, EHAB Attending Unavailable ELTAHAWY, EHAB Admitting Unavailable KATE BRODERICK Attending Unavailable PRETTY PLAZA Attending Unavailable PRETTY PLAZA Attending Unavailable TURNER HARDING Attending Unavailable ELTABING, EHAB Referring Unavailable TURNER HARDING Attending Unavailable TURNER HARDING Admitting Unavailable Allergies Allergy Classification Reported Allergen(s) Allergy Type Date of Onset Reaction(s) Facility (1 source) Sulfonamides (Antibiotic) Drug allergy (disorder) 09-01-19 21 [facility] Repository (1 source) Sulfamethoxazole / Trimethoprim Drug Allergy NAILS TURNED PURPLE Infrafone Other (1 source) Ciprofloxacin; 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: [CIPROFLOXACIN] Drug Allergy 11-24-19 [facility] Repository (1 source) levoFLOXacin; 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: [LEVOFLOXACIN] Drug Allergy 11-24-19 [facility] Repository (1 source) Sulfonamides (Antibiotic); 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: [SULFA (SULFONAMIDE ANTIBIOTICS)] Propensity to adverse reactions to drug (disorder) 12-03-19 [facility] Repository Medications Current Medications Medication Drug Class(es) [...] Onset: 08-25-2022 Chronic Other aftercare (1 source) 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; 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: [HALF-WAY CURRNT USE ANTICOAGULANTS] Onset: 08-18-2022 Episodic Other aftercare (1 source) Other [facility] (current) drug therapy; 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: [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, [facility], [facility] Interventional Cardiology Pager Email: [email or web address] Patient: Sharri Cooney Procedure Information Date/Time: 01/13/24 0830 Procedure: Coronary angiography; PC Approved (12/02-05/31) Location: [facility] ASSISTANT ACCOUNT MANAGER 3 / [facility] VASCULAR LAB (Cath) Providers: Cecilia Peter [...] discussed with attending. Additional Equipment Requests Normal [facility] HPon 01-13-2024 - Attestation signed by Cecilia [...] wishes to proceed. Cecilia Peter MD, MPH, [facility], [facility], [facility] Interventional Cardiology Pager Email: [email or web address] H&P reviewed. The patient was examined and there are no changes to the H&P. Sharri Cooney is a 73 y.o. year old with past medical history of A-fib RVR, hypertension, dyslipidemia, and mild MR presents for ischemic work up for Afib. Patient will undergo coronary angiography. [facility] NURSNOTEjennifer 01-13-2024 ALECIANOTJosse RN educated pt on d/ c instructions. RN encouraged pt to voice any questions or concerns. Pt verbalizes no questions or concerns at this time. Pt was wheeled off of unit with all of belongings. [facility] HPon 12-14-2023 HP New order for cardia c cath [facility] Orders Onlyon 12-14-2023 Orders Only [id number] Sharri Cooney 1950 F Date Provider Department Center 12/14/2023 [facility] No family history on file [facility] Telephoneon 12-10-2023 Telephone [id number] Reno 1950 F Date Provider Department Center 12/10/2023 [facility] No family history on file [facility] Orders Onlyon 11-25-2023 Orders Only [id number] Reno 1950 F Date Provider Department Center 11/25/2023 [id number], HISTORICAL CARD [facility] No family history on file Normal [facility] HPon 11-24-2023 [facility] Electrophysiology Consult Note Reason for visit: [...] or signs patient was recently seen in [facility] 08/2022 for palpitations. She was found [...] palpitations, lightness, dizziness, fatigue 08/2022 ECG by [facility]- appears to be sinus tach with [...] alcohol infrequently, no significant caffeine intake, no labb-skx-fwpqzdu decongestions Family history: Her mother of a [...] alcohol infrequently, no significant caffeine intake, no ttxq-vrb-iwsytlb decongestions Family history: Her mother of a [...] on file Intimate Partner Violence: Unknown (08/26/2023) [place] Safety & Environment Fear of Current or Ex-Partner: Not on file Emotionally Abused: Not on file Physically Abused: Not on file Sexually Abused: Not on file Physically or Sexually Abused: Not on file Depression: Not on file Housing Stability: Not on file U (more content not included)... [facility] NURSNOTEon 11-24-2023 NURSNOTE RN educated pt on d/ c instructions. RN encouraged pt to voice any questions or concerns. Pt verbalizes no questions or concerns at this time. Pt was walked off of unit with all of belongings. [facility] Office Visiton 11-03-2023 Follow-up visit [id number] Sharri Cooney 1950 F Date Provider Department Center 11/03/2023 [facility] C[facility] No family history on file Level of Service:97077 [place] OFFICE/OUTPATIENT ESTABLISHED LOW MDM 20 MIN Reason for Visit and Comments: Follow-up [783111] Atrial Fibrillation [80] [facility] 36on 10-29-2023 36 I ordered a stress test for her along with increased metoprolol and Kcl. Also started mag oxide. Please send stress to [facility]. Please call patient and schedule her an appt with Dr. Harding at his soonest available. He said if she really wants to get in [place] with him he can see her at [place] next week while he is on Med . Thanks! Normal [facility] Telephoneon 10-29-2023 Telephone [id number] Sharri Cooney 1950 F Date Provider Department Center 10/29/[address] No family history on file Normal [facility] Office Visiton 10-28-2023 Follow-up visit [id number] Sharri Cooney 1950 F Date Provider Department Center 10/28/2023 PRETTY GALLAGHER CARD [facility] No family history on file Level of Service:93432 [place] OFFICE/OUTPATIENT ESTABLISHED MOD MDM 30 MIN Reason for Visit and Comments: Atrial Fibrillation [80] Palpitations [597604] Normal [facility] Office Visiton 06-04-2023 Follow-up visit [id number] Sharri Cooney 1950 F Date Provider Department Center 06/04/2023 [facility] No family history on file Level of Service:81115 [place] OFFICE/OUTPATIENT ESTABLISHED MOD MDM 30-39 MIN Normal [facility] COVID/FLU RT-PCRon SARS-CoV-2 (COVID-19) RNA VERONICA+probe Ql (Unsp spec) Positive In[employer] Other COVID/FLU RT-PCR Negative [address] [employer] Other SGOTon 10-23-2022 AST [Catalytic activity/Vol] 45 U/L Critically high 15-37 [facility] Comment on above: Performed By: #### A LT, AST #### [facility] [address] [place] [address] Dr. Fred Treviño 10-23-2022 ALT [Catalytic activity/Vol] 48 U/L Normal 14-59 [facility] Comment on above: Performed By: #### A LT, AST #### [facility] [address] [address] [address] Fred Jackson SGOTon 09-10-2022 AST [Catalytic activity/Vol] 40 U/L Critically high 15-37 [facility] Comment on above: Performed By: #### A LT, AST #### [facility] [address] [address] [address] Fred Jackson SGPTon 09-10-2022 ALT [Catalytic activity/Vol] 52 U/L Normal 14-59 [facility] Comment on above: Performed By: #### A LT, AST #### [facility] [address] [address] [address] Fred Jackson XR DEXA BONE DENSITYon 08-25 XR DEXA BONE DENSITY DEXA Bone Density Study CLINICAL: Evaluate bone mineral density. Postmenopausal COMPARISON: FINDINGS: The bone density study was assessed by dual-energy x-ray absorptiometry with the [employer] scanner. The test results are expressed in [...] RAFIQ SEALS Date: 2022-08-25 09:50 Normal [facility] BNPon 08-16-2022 Natriuretic peptide B (Bld) [Mass/Vol] 87.0 pg/mL Normal <=900.0 [facility] Comment on above: Performed By: #### T SH, CMP, BNP, CMADM ####[facility] [address] [address]Dr. Fred Jackson CARDIAC JASSI ADMITon 023 CK [Catalytic activity/Vol] 152 U/L Normal 26-192 [facility] Comment on above: Performed By: #### T SH, CMP, BNP, CMADM ####[facility] [address] [address]DrCaroline Jackson CK.MB [Mass/Vol] 2.96 ng/mL Normal <=3.60 [facility] Comment on above: Performed By: #### T SH, CMP, BNP, CMADM ####[facility] [address] [address]Dr. Fred Jackson HSTROP 6.1 pg/mL Normal 4.0-51.3 [facility] Comment on above: Result Comment: CUT- OFF POINTS HAVE BEEN ESTABLISHED BASED ON THE FOURTH UNIVERSAL DEFINITIONS OF MYOCARDIAL INFARCTION. THE UPPER REFERENCE LIMIT (URL) OF TROPONIN, DEFINED THE 99TH PERCENTILE OF cTnI DISTRIBUTION IN A REFERENCE POPULATION, HAS BEEN CONFIRMED THE DECISION THRESHOLD FOR [place] DIAGNOSIS. Performed By: #### T SH, CMP, BNP, CMADM ####[facility] [address] [address]Dr. Fred Jackson ANGELI 80 ng/mL Normal 9-82 [facility] Comment on above: Performed By: #### T SH, CMP, BNP, CMADM ####[facility] [address] [address]Dr. Fred Jackson CBC AUTO DIFFon 08-16-2022 BASO # 0.1 103/ul Normal 0.0-0.1 [facility] Comment on above: Performed By: #### C BC #### [facility] [address] [address] [address] Fred Jackson Basophils/100 WBC (Bld) 1.4 % Normal 0.2-2.0 [facility] Comment on above: Performed By: #### C BC #### [facility] [address] [place] [address] Dr. Fred Jackson EO # 0.3 103/ul Normal 0.0-0.7 [facility] Comment on above: Performed By: #### C BC #### [facility] [address] [address] [address] Fred Jackson Eosinophils/100 WBC (Bld) 3.1 % Normal 0.9-7.0 [facility] Comment on above: Performed By: #### C BC #### [facility] [address] [place] [address] Dr. Fred Jackson Erythrocyte distribution width (RBC) [Ratio] 12.0 % Normal 11.0-15.0 [facility] Comment on above: Performed By: #### C BC #### [facility] [address] [place] [address] Dr. Fred Jackson Hematocrit (Bld) [Volume fraction] 40.5 % Normal 36.0-48.0 [facility] Comment on above: Performed By: #### C BC #### [facility] [address] [place] [address] Dr. Fred Jackson Hemoglobin (Bld) [Mass/Vol] 13.8 g/dL Normal 12.0-16.0 [facility] Comment on above: Performed By: #### C BC #### [facility] [address] [address] [address] Fred Jackson IG # 0.06 10e3/ul Critically high 0.00-0.03 [facility] Comment on above: Performed By: #### C BC #### [facility] [address] [place] [address] Dr. Fred Jackson IG % 0.6 % Critically high 0.0-0.5 [facility] Comment on above: Performed By: #### C BC #### [facility] [address] [place] [address] Dr. Fred Jackson LYMPH # 3.8 103/ul Normal 1.2-3.8 [facility] Comment on above: Performed By: #### C BC #### [facility] [address] [place] [address] Dr. Fred Jackson Lymphocytes/100 WBC (Bld) 36.6 % Normal 20.5-60.0 [facility] Comment on above: Performed By: #### C BC #### [facility] [address] [place] [address] Dr. Fred Jackson MANUAL DIFF REQ NO Normal [facility] Comment on above: Performed By: #### C BC #### [facility] [address] [address] [address] Fred Jackson MCH (RBC) [Entitic mass] 31.2 pg Normal 26.7-34.0 [facility] Comment on above: Performed By: #### C BC #### [facility] [address] [place] [address] Dr. Fred Jackson MCHC (RBC) [Mass/Vol] 34.1 g/dL Normal 29.9-35.2 [facility] Comment on above: Performed By: #### C BC #### [facility] [address] [place] [address] Dr. Fred Jackson MCV (RBC) [Entitic vol] 91.6 fL Normal 81.0-99.0 [facility] Comment on above: Performed By: #### C BC #### [facility] [address] [place] [address] Dr. Fred Jackson MONO # 1.2 103/ul Critically high 0.3-0.8 [facility] Comment on above: Performed By: #### C BC #### [facility] [address] [place] [address] Dr. Fred Jackson Monocytes/100 WBC (Bld) 11.3 % Normal 1.7-12.0 [facility] Comment on above: Performed By: #### C BC #### [facility] [address] [place] [address] Dr. Fred Jackson NEUT # 4.9 103/ul Normal 1.4-6.5 [facility] Comment on above: Performed By: #### C BC #### [facility] [address] [place] [address] Dr. Fred Jackson Neutrophils/100 WBC (Bld) 47.0 % Normal 43.0-75.0 [facility] Comment on above: Performed By: #### C BC #### [facility] [address] [place] [address] Dr. Fred Jackson Platelet mean volume (Bld) [Entitic vol] 8.9 fL Critically low 9.5-13.5 [facility] Comment on above: Performed By: #### C BC #### [facility] [address] [place] [address] Dr. Fred Jackson PLT 404 103/ul Normal 150-450 [facility] Comment on above: Performed By: #### C BC #### [facility] [address] [place] [address] Dr. Fred Jackson RBC 4.42 106/ul Normal 4.20-5.40 [facility] Comment on above: Performed By: #### C BC #### [facility] [address] [address] [address] Fred Jackson WBC 10.3 103/ul Normal 4.0-11.0 [facility] Comment on above: Performed By: #### C BC #### [facility] [address] [address] [address] Fred Jackson PROF 14(COMP METB)on 023 Albumin [Mass/Vol] 4.3 g/dL Normal 3.4-5.0 [facility] Comment on above: Performed By: #### T SH, CMP, BNP, CMADM ####[facility] [address] [address]Dr. Fred Jackson Albumin/Globulin [Mass ratio] 1.2 {ratio} Normal [facility] Comment on above: Performed By: #### T SH, CMP, BNP, CMADM ####[facility] [address] [address]Dr. Fred Jackson ALP [Catalytic activity/Vol] 96 U/L Normal 46-116 [facility] Comment on above: Performed By: #### T SH, CMP, BNP, CMADM ####[facility] [address] [address]Dr. Fred Jackson ALT [Catalytic activity/Vol] 34 U/L Normal 14-59 [facility] Comment on above: Performed By: #### T SH, CMP, BNP, CMADM ####[facility] [address] [address]Dr. Fred Jackson Anion gap [Moles/Vol] 16.6 mmol/L Normal [facility] Comment on above: Performed By: #### T SH, CMP, BNP, CMADM ####[facility] [address] [address]Dr. Fred Jackson AST [Catalytic activity/Vol] 39 U/L Critically high 15-37 [facility] Comment on above: Performed By: #### T SH, CMP, BNP, CMADM ####[facility] [address] [address]Dr. Fred Jackson Bilirubin [Mass/Vol] 0.8 mg/dL Normal 0.2-1.0 [facility] Comment on above: Performed By: #### T SH, CMP, BNP, CMADM ####[facility] [address] [address]Dr. Fred Jackson Calcium [Mass/Vol] 10.1 mg/dL Normal 8.5-10.1 [facility] Comment on above: Performed By: #### T SH, CMP, BNP, CMADM ####[facility] [address] [address]Dr. Fred Jackson Chloride [Moles/Vol] 91 mmol/L Critically low 98-107 [facility] Comment on above: Performed By: #### T SH, CMP, BNP, CMADM ####[facility] [address] [place], [place] [address]Dr. Fred Jackson CO2 [Moles/Vol] 25.5 mmol/L Normal 21.0-32.0 [facility] Comment on above: Performed By: #### T SH, CMP, BNP, CMADM ####[facility] [address] [place], [place] [address]Dr. Fred Jackson Creatinine [Mass/Vol] 0.95 mg/dL Normal 0.55-1.02 [facility] Comment on above: Performed By: #### T SH, CMP, BNP, CMADM ####[facility] [address] [place], [place] [address]Dr. Fred Jackson EGFR-AF [place]LANDER >60 Normal >=60 [facility] Comment on above: Performed By: #### T SH, CMP, BNP, CMADM ####[facility] [address] [place], [place] [address]Dr. Fred Jackson EGFR-NON AF [place]ER 58 mL/min/1.73m2 Critically low >=60 [facility] Comment on above: Performed By: #### T SH, CMP, BNP, CMADM ####[facility] [address] [place], [place] [address]Dr. Fred Jackson Globulin (S) [Mass/Vol] 3.6 g/dL Normal [facility] Comment on above: Performed By: #### T SH, CMP, BNP, CMADM ####[facility] [address] [address]Dr. Fred Jackson Glucose [Mass/Vol] 116 mg/dL Critically high 74-106 [facility] Comment on above: Performed By: #### T SH, CMP, BNP, CMADM ####[facility] [address] [address]Dr. Fred Jackson Potassium [Moles/Vol] 3.1 mmol/L Critically low 3.5-5.1 [facility] Comment on above: Performed By: #### T SH, CMP, BNP, CMADM ####[facility] [address] [place], [place] [address]Dr. Fred Jackson Protein [Mass/Vol] 7.9 g/dL Normal 6.4-8.2 [facility] Comment on above: Performed By: #### T SH, CMP, BNP, CMADM ####[facility] [address] [address]Dr. Fred Jackson Sodium [Moles/Vol] 130 mmol/L Critically low 136-145 [facility] Comment on above: Performed By: #### T SH, CMP, BNP, CMADM ####[facility] [address] [address]Dr. Fred Jackson Urea nitrogen [Mass/Vol] 17.0 mg/dL Normal 7.0-18.0 [facility] Comment on above: Performed By: #### T SH, CMP, BNP, CMADM ####[facility] [address] [address]Dr. Fred Jackson Urea nitrogen/Creatini ne [Mass ratio] 17.9 mg/mg Normal [facility] Comment on above: Performed By: #### T SH, CMP, BNP, CMADM ####[facility] [address] [address]Dr. Fred Jackson PROTIMEon 08-16-2022 INR Coag (PPP) [Relative time] 1.01 {INR} Normal [facility] Comment on above: Performed By: #### P TT, PT ####[facility] [address] [address]DrCaroline Jackson INR GUIDELINES SEE BELOW Normal [facility] Comment on above: Result Comment: DOTTY RED INR: 2.0 - 3.0 CONDITIONS NOT LISTED BELOW 2.5 - 3.5 FOR PROSTHETIC HEART VALVE REPLACEMENT 2.5 - 3.5 RECURRENT THROMBOSIS Performed By: #### P TT, PT ####[facility] [address] [address]DrCaroline Jackson PT Coag (PPP) [Time] 10.7 s Normal 9.0-11.6 [facility] Comment on above: Performed By: #### P TT, PT ####[facility] [address] [address]DrCaroline Jackson PTTon 08-16-2022 aPTT Coag (Bld) [Time] 33.9 s Normal 22.3-36.2 [facility] Comment on above: Performed By: #### P TT, PT ####[facility] [address] [address]DrCaroline Jackson TROPONIN, HIGH SENSITIVITYon 08-16-2022 HSTROP 15.1 pg/mL Normal 4.0-51.3 [facility] Comment on above: Result Comment: CUT- OFF POINTS HAVE BEEN ESTABLISHED BASED ON THE FOURTH UNIVERSAL DEFINITIONS OF MYOCARDIAL INFARCTION. THE UPPER REFERENCE LIMIT (URL) OF TROPONIN, DEFINED THE 99TH PERCENTILE OF cTnI DISTRIBUTION IN A REFERENCE POPULATION, HAS BEEN CONFIRMED THE DECISION THRESHOLD FOR [place] DIAGNOSIS. Performed By: #### H STROPN #### [facility] [address] [place], [place] [address] Dr. Fred Jackson TSHon 08-16-2022 TSH 4.364 uIU/mL Critically high 0.358-3.740 [facility] Comment on above: Performed By: #### T SH, CMP, BNP, CMADM ####[facility] [address] [address]Dr. Fred Jackson XR CHEST 1 Von 08-16-2022 [...] DALI MYERS Date: 2022-08-16 00:02 Normal [facility] Covid-19 PCR (CVDTBH)on 03-06 SARS-CoV-2 (COVID-19) RNA VERONICA+probe Ql (Unsp spec) Detected Critically abnormal NOT DETECTED [facility] Comment on above: Result Comment: This test is not yet approved or cleared by the [place] FDA. When there are no FDA-approved or cleared tests available, and other criteria are met, FDA can make tests available under an emergency access mechanism called an Emergency Use Authorization (EUA). The EUA for this test is supported by the [place] of Health and Human Service's (HHS's) declaration [...] used). Performed By: #### C [facility] ####[facility] [address] [place], [place] [address]KyCaroline Fred Jackson US CAROTID ART BILon 022 [...] by: TIFFANIE LEON Date: 2022-03-12 14:51 Normal [facility] MAMM SCREEN 3D JASMEET CADon 02-09-2022 MG MAMM SCREEN 3D JASMEET CAD Patient: SHARRI COONEY Exam Date: 02/09/2022 : 1950 Gender:F Ordering : DR RINKU PETERSON . Admission #: [id number] Family : Order #: [id number] CLICK HERE TO VIEW EXAM RADIOLOGY REPORT [...] prostate cancer at age 60. LOCATION: [facility] BREAST COMPOSITION: Heterogeneously dense,which may obscure [...] Zuñiga MD on 02/09/2022 at 09:50 Normal [facility] Coding Summary.on 03-12-2021 Coding Summary. CD:[id number] G h0bWw+PGhlYWQ+HV2PIEO mR98foYXaoA3CC4wKMI6T UCVEPOSAFW0FHV8iqTN2R LknL2IqvuOn NyxfnEWoHU46GVv1OZA6s SinUEbdkK2cvVBkS0t4Io YmWU53uQ63QNxsWLBhEhK 3LjZpbjsgbWFy I8saPxKfzUVjKra+PHRhY mxlIHdpZHRoPScxMDAlJy AguVlxAV9hGw1mOKLmTAW vbGxhcHNlOiBj p2liBBGlUJyjQE0qrRtkV 8MzsYK4VOGbd0t9Qh75mW I+YLSnANJ8sGjtUSazj36 0NsKud8ozNRK3 rFAbLIzwTQK0D23lt5Y5R UCoQZKlWJT0cVV6hT7yhH wstsjwL9CrgAFtZqK5UGG 8hBBryH5jgZlb pvegbI2qWev+A76JZR7MV UANBL5IFyd3X6FjDdgrcC I+OZ70CRVkWC93zRIdyXK an1gitMt0AkBu TTDgANR8oBnvDJzfd8YdP CIpA30lzLMyn9J1OCUjqM febMReIoDfuLJ3zD0pADz ucrejj8brnetp Pmrml0dntj01rT25Y96sX EvvBMAfFEN1LETmXIJaqF vqbc2clL1nKp1+LZmuy2h sw0gmxBv7LmAw KZIypwChpZftEVI4j4KoG x44G8BrpLklw2ZsUae6iq 43oXKmy7C1dEA9ZTswVDM cmH2jDBnnMaN1 VRUoXuGplG35oGTiSNivO p2uaBcwfIwrOX5hRCMwvr maHSAbyI6cRTYjyNHjvFx pBC6cEWEzyoyi p928QzWyKCA3PQBtyFHgQ 5RdpZ2zXvYdBOPdTXPmS6 QwnRNuTIftR103POptEpJ 4HJWvgdQpB8Vl ULHywUjqSyC3t9Z9Sf2Pt 3CvsbxkHHU1ZFonIDO9Zu M1VpAkJzW5W5BgYwl7LKY asUviYY6fA5Xn MLMgikzeglveaIG4GILrE IFhyL44rRVpEVxpIb8fp2 X5s484FOTjVXDihU29Bf3 udDogMTBwdCBU dN3ahabtb3mjbteaNsQxM DZsFJb4YRb1ONOivMvzWq YaECH2QsX5PST6vNWpyH0 eeSyhhfblrB1v Oyc+L94svK0dJRO9UGF6i zjpVXRjjkHfKF08DZ60K3 RyPjwvdGFibGU+PGRpdiB geWpiEP4sKhGs a1lsm2UfJOgqT4MhQWZeG BfcIlw9LYGoJJG4kXN8tT 6zMLFnLDlte5L8lUW7B4Z pieWiqt4nr7ns OYHzSKxnL84yaVNfm0R7T HZsvFX5XBFhmDixSoXtdV 93Oyc+VYDksAfod2UnQan nf8rcc1pdcSb3 QmItBYGdktKliFudYIU9y 0RkGx65B54iWNheSONfMY OsIFEvVBBnnXabni2xaR2 wIi8+PGNvbCB3 zCW1vW5wOQYdIlV3IDtdY 840RhAvrAGgHjrtm5ohn1 iuyZx8OoMsONDfbtMhuEk lQAG0k4RwNv08 U68bMZleMUKwEBVfBWYtX EMikQzaed6lvG1wMz5+PC 3ym3bymn28zW73nPQ+PHR dKPE7sRcqEAgp WTIjxP7vZXagFhY0VOLmT iNhyF99wQBvNUauTu1gpR ejiOakXC0vODYmvaosd95 1BrOss5ghNLUo mSLoKWuhLZY0N23iw1O6K YOrWQLrEWW5eBG6uR7cnU lnbjogbGVmdDsgdmVydGl qGPniPWhoS754 IHRvcDsnPlBhdGllbnQgT kLzIIr7O9XmWmd3EBKgtG fcPG9wtNFeSAiyFm7qeJu gaNmyFB2xOZSv torsj965SmClk1wrOLDme YVfAMofVCV6C58sh1C4FB MxLDAwZMI9tDN2zY7xsSj nbjogbGVmdDsg leYboBhrPWpjYAxfA659L HRvcDsnPkJpcnRoIERhdG J9OX61IR11lZZdh6N4bIY 8B2HjFDFznlmr blpcdII4GYNfDFXlpJ56Z w8gaFmwRs1bEUSoVJN0HM FnqEZlA7YrmA3qWuGySLB vNMGlX1SesKMn ANwiM129UVgbDxH9ORXsf vAxM3VhAYPndYkuJfQ6p7 E0Nx1LA5U8KG01KK36sRK hu4A9cHX4L5Ic CAMgsxhsgbjnhBM4LLRiB EWqaO56Mq3kiYzpJj2nDS PaMNX5PNVetBVnX3VlgF2 yOiAjMDAwMDAw H3GrfABhFByfO045MHlgT pH8QYTjrxYjJ5CzIXWckU joFtV8t4E7Cd2ZSUt4IZ0 6VO76dPZcw9V6 lBN9D0QzTHIaslyeexdrm HX2XUIsABLabB00Qo4hdF jeKv2zWDCbTTE1EWSznLQ nL9IswW1uKwEc XVAlEZLvJ6YxdCItLOhmO 336OWknUfT9YALetyDyO8 WxSBNvbKztQkQ9b8V5Tw1 DGYDxUX19PRP2 kXI7SQ97VO03W8YpLvuyt GFibGU+PHRhYmxlIHdpZH RoPScxMDAlJyBzdHlsZT0 xGr2wPYNuPYOr fYwzwXArRmPau9ctMAFkT ZcrNN9lqResM5GmtLR3GP Aad1h3Hy62H33jZ5HjgKT +CEWypQP6rAE7 cN8cBqKzAaS5THgiV108U jKmlRFaRodpv9adj3kzjS b8QaM3FOImukTodZgkCNS 0g6VlRc41X75v IHdpZHRoPSIxNSUiIHZhb Aqayd5akE5bRr4+PGNvbC O3gOH2vG6uGdPhEfK2OJn tQ605JoCwtTWf Cigpr7lau0osuYr6CaQhX DWzxoXdyOfbJKG9z0VrNu 97W7KdrUpkh4GrIvb0ya2 4cLNvz6V7sOP9 J3AnWWVrrbjwqTMixRkdH U4lZVAesjfxVVAwoZ4rND IkF3v2JlTtLqF0FTkbJ6A cbtI2ZFMadXGg WBzhDCX1U79dx5P4PKDxF AMsRMJ7yUA5sW6ryGtxsr ogbGVmdDsgdmVydGljYWw tQFziS184BYAy xPcpOAOysA3wIVEhgQOur FwkED8qRMClocogIfSNWy ZNJGqaRWBGUqBUWcM1R4U hFlh9YOSikQyo HO7apTOwRAieAa2xtNtry IxdRT9pSAZpoarsYEKttT 7kSSMktZCkeUjcIC0nDWZ mrlbrd591OxQr FWZ3KVAngPVpH2UhfB5dH wGcJGIhIXWjA5ZalPKjFG wuL781QNjbMaM2IAJahuS sO1VdSUNmkYli IsY3h6G5Ag7wWw0lYF1cM YUfGG08BH14iGXpn1T7xH B2A7YgKAJqdntamdetiJO 5HYRwADVufF42 jOQyEJwmWf6bg1R7f795H UNhXZDbcV60Io1nlXnrAV WrtAHYlC0llapxk7czxet gIzAwMDAwMDt0 KZn8VHNjiHzrGaJzUOZ6D eX5ACC9fSCeyW2sdRahul wvjR2nPdg+NjggWWVhcnM 2U9GxOdo3UOKk wXgdMI5ztBHtGFyeMm1yr AomgRjcOR0aMARllyyyMO DzaR8kWIQwqUZreKbkXV7 lXNErdiwhi055 FiSyPQI5JVQjhYJmP0Ylv O5kAcNfTCRyHYMnJ0LgpZ KoRGcvM735LBwmMqZ0LKY qcvMaM1MaUEIq cQggOdT7k3B7Qj7HYU3br ZU2W0XsXhk5PJAkjJosEX 7pxOQyARbcBl4eeXygbAa kFN9pMSLhetvk SCBpxJ2zGSYtfVPptLxdW U6cGCKwuwpes448WrKtJF Z6YSVlkNVeH1KlqY0lKyF oZMOnDRInR1Za qPGzSQfjA995WPdmOvU1J MTmhxVjH5PaGAXupCmvFh I0t4V3Rm9RFKIfWSCvcGP xOuJ0E3YkQjpj dHI+FF63FCSkHG09cODwj SJva5gxyCp9AeRuMPBzXX W7wIwjHLdmo4ZwQXHlR97 ewPPkv6V0PCMn eKhijCWoUwEvbZW4gX5sT Ddgmjewp3ymoosjIfnqo4 tfgg81lB26W06zRWkaVJR oPSIzMCUiIHZh lIofdm6jtY3lRa1+PGNvb BM9tSQ2bB3xJdKsWwW7BW whF715KvArlHRhXfaxu9w fb1tjzMw2RwBv CNHdnlUixQeiFEQ6m6ZqD g53L62oEMdlBGUrWXTvMJ VgJEWsoSrmjm1ynA9xYm6 +EA5df7chcj34 zC45qBH+XJQoACZ3yPajG RmsFXKbgJ2fKOmvLxM0TO GmXpQcrP35pKNpRUpyYn5 hdEuzgEcoEZ0l ABMwoqblg821KvXer6nmX BWffQYlHLhiYUQ8D13fe6 D0KWSmSOViVSO9rHX2pB3 hbGlnbjogbGVm dDsgdmVydGljYWwtYWxpZ 967DNPpfDxmAnBbzVPcX5 hxtvKXTQ7oNbbyuRM+PHR rMZI9rCmpRXty QTXbpY3eATExO9l3JjItO vS5CKsiE0ZlhmX3OEPlhO JpKYOczYILuJ4ozgyxp8b vcjogIzAwMDAw AJi7TRi6NTInbFcdEfHvG CW6AuD0PEI6zKKlsR5fgP mevipcbN3aDzp+RklOOjw vdGQ+PHRkIHN0 wZckJJozGHPylB8tHROzD 1c4GuCiTrY9IFmoU2Fdfe R4YWUqvOEoWKKpbFFJzO3 oehnqx5hsjubl JmMxJFXsIQw6GKn4ILHiy ZccKfAaRUI5GwL4ACW5mV ZlhI6tqMbqblgmeH2kRmy +TVJOOjwvdGQ+ JHImPEO6jLblXMhqDBLdy D7dMFYlN7f5PbBjQmR4PH goT7RynaF7IDYknNOtWVW scWDImO3uxbol a7vakxodEkNrQJXnBVr2U Rq2ZDPilYjwDiPoKHY4Wu I1IBO8cSEyoH7prQuxxwv liD4kAhg+UGF5 IDB1UH30LR22Z8XiMyezv GFibGU+PHRhYmxlIHdpZH RoPScxMDAlJyBzdHlsZT0 uNr3qKONnEZLx bGxh (more content not included)... [facility] Physician Orderon 02-19-2021 Physician Order [id number]# 1.00CD:127 Normal [facility] Vital Signs Date Time Vital Sign Value Performing Clinician Facility 04-22-2023 12:20-0400 Body height 153.67 cm Broderick Solomon Other [facility] Other 04-22-2023 12:20-0400 Body mass index (BMI) [Ratio] 24.58 kg/m2 Broder[facility] Solomon Other [facility] Other 04-22-2023 12:20-0400 Body temperature 98.3 [degF] Broderick Solomon Other [facility] Other 04-22-2023 12:20-0400 Body weight 58.06 kg Broderick Solomon Other [facility] Other 04-22-2023 12:20-0400 Respiratory rate 18 /min Broderick Solomon Other [facility] Other 04-22-2023 12:20-0400 SaO2% (BldA) [Mass fraction] 96 % Broderick Solomon Other [facility] Other Encounters Encounter Date Encounter Type Care Provider Facility Start: 02-01-2024 End: 02-01-2024 ambulatory [facility] Start: 01-13-2024 End: 01-13-2024 ambulatory [facility] Start: 12-10-2023 End: 12-10-2023 ambulatory [facility] Start: 12-06-2023 End: 12-06-2023 ambulatory TITA SHELDON Not Available Start: 11-24-2023 End: 11-24-2023 ambulatory [facility] Start: 11-03-2023 ambulatory TURNER HARDING [facility] Start: 10-28-2023 End: 10-28-2023 ambulatory PRETTY [place] Start: 06-04-2023 End: 06-04-2023 ambulatory KATE BRODERICK [facility] Start: 04-22-2023 End: 04-22-2023 ambulatory Broderick Solomon Other [facility] Other Start: 04-22-2023 Office outpatient vi sit [...] acellular pertussis vaccine, adsorbed Broderick Solomon Other [facility] Other Payers Date Payer Category Payer Medicare [id number] 1950 Unknown [id number] 2.16.84 [id number] 1950 Unknown [id number] 2.16.84 [id number] 1950 Unknown [id number] 2.16.84 [id number] 1950 Unknown [id number] 2.16.84 [id number] 1950 Unknown [id number] 2.16.84 [id number] 1950 Unknown [id number] 2.16.84 [id number] 1950 Unknown [id number] 2.16.84 [id number] 1950 Unknown [id number] 2.16.84 [id number] Social History Date Type Detail Facility Unknown if ever smoked [facility] Other Sex Assigned At Sex Assigned At Bir th [facility] Other Clinical Notes 04-22-2023 to 02-01-2024 Note [...] or signs patient was recently seen in [facility] 08/2022 for palpitations. She was found [...] palpitations, lightness, dizziness, fatigue 08/2022 ECG by [facility]- appears to be sinus tach with [...] alcohol infrequently, no significant caffeine intake, no fuek-bmr-asnsjxz decongestions Family history: Her mother of a [...] alcohol infrequently, no significant caffeine intake, no gkfs-yyn-dgchxsr decongestions Family history: Her mother of a [...] Not on file (more content not included)... [facility] 02-01-2024 Note Patient here for fol low up heart cath with Dr. Peter on 01/13/2024. Says she's been feeling good. Denies chest pain, SOB, palpitations, lightheadedness/syncope, and bleeding on Eliquis. BP's from home are low at times. Review of Systems All other systems reviewed and are negative. [facility] 01-13-2024 Note Cardiovascular Labor atory Report FINAL [...] left radial artery was obtained. A 6 Upper Sorbian glide sheath was inserted without difficulty. Difficulty [...] is angiographically nonobstructive. INDICATIONS: Abnormal stress test [facility] 12-14-2023 Note [facility] 11-25-2023 Note Do we have the exerc ise portion results? [facility] 11-25-2023 Note FYI - I made patient aware that we will proceed with coronary angiogram. I placed the orders but EPIC is being EPIC and won't let me close the encounter so working with IT on this. Thx [facility] 11-25-2023 Note EKG portion was posi tive for inferior ischemia. Nuc imaging was negative for ischemia. Her sx's are dyspnea. We are looking to start flecanide for her for her a.fib. Should we proceed with cath or coronary CTA? Thanks! [facility] 11-24-2023 Note LOOP IMPLANT PROCEDU RE NOTE DATE OF PROCEDURE: 11/24/23 PERFORMING PHYSICIAN: Dr. Turner Harding FAMILY PRESERVATION WORKER: NA INDICATIONS FOR PROCEDURE: 1. SVT/AF surveillance [...] the sternum on the left using the TheTake tool. The loop recorder was then injected [...] the incision. Turner Harding MD Cardiac Electrophysiology. [facility] 11-03-2023 Note [facility] Consult Note Reason [...] or signs patient was recently seen in [facility] 08/2022 for palpitations. She was found [...] palpitations, lightness, dizziness, fatigue 08/2022 ECG by [facility]- appears to be sinus tach with [...] alcohol infrequently, no significant caffeine intake, no myvt-nve-lqgoprc decongestions Family history: Her mother of a [...] alcohol infrequently, no significant caffeine intake, no wsux-jrr-tsbdvuh decongestions Family history: Her mother of a [...] on file Intimate Partner Violence: Unknown (08/26/2023) [place] Safety & Environment Fear of Current or Ex-Partner: Not on file Emotionally Abused: Not on file Physically Abused: Not on file Sexually Abused: Not on file Physically or Sexually Abused: Not on file Depression: Not on file Housing Stability: Not on file U (more content not included)... [facility] 10-28-2023 Note [facility] Consult Note Reason [...] or signs patient was recently seen in [facility] 08/2022 for palpitations. She was found [...] palpitations, lightness, dizziness, fatigue 08/2022 ECG by [facility]- appears to be sinus tach with [...] alcohol infrequently, no significant caffeine intake, no gasd-fvc-rogvnvd decongestions Family history: Her mother of a [...] alcohol infrequently, no significant caffeine intake, no heqw-zfj-qjztdxu decongestions Family history: Her mother of a [...] Intimate Partner Violence (more content not included)... [facility] 10-28-2023 Note Patient here for [facility] ED for afib. Says she recently [...] All other systems reviewed and are negative. [facility] 06-04-2023 Note Patient here for 6 m o follow up PAF, mitral valve regurgitation, and hypertension. She had an echo in January 2023. Says her BP has been running around 150/90, as she is always high strung this time of year . Denies chest pain, SOB, palpitations, lightheadedness, and bleeding on Eliquis. Review of Systems All other systems reviewed and are negative. [facility] 06-04-2023 Note [place] Electrophysiology Consult Note Reason for visit: 6 [...] or signs patient was recently seen in [facility] 08/2022 for palpitations. She was found [...] palpitations, lightness, dizziness, fatigue 08/2022 ECG by [facility]- appears to be sinus tach with [...] alcohol infrequently, no significant caffeine intake, no qgqp-soq-fjefuce decongestions Family history: Her mother of a brain aneurysm, no history of premature coronary artery disease, no history of arrhythmias Medications: Eliquis 5 mg p.o. twice daily, lisinopril 10/hydrochlorothiazide 12.5 mg daily, Toprol-XL 50 mg daily, Zocor 10 mg daily 03/03/[address] Mehdi estevez?c; Eugenio H?PI: 71-year-old woman with HTN was Dx [...] alcohol infrequently, no significant caffeine intake, no hvzp-pxl-fmdgmec decongestions Family history: Her mother of a [...] (Eliquis) 5 m (more content not included)... [facility] 04-22-2023 Evaluation note Encounter Date Diagnosis Assessment [...] see your pcp. Take tylenol as needed. [facility] Other History general Narrative - Reported* Type Description Date Medical History HTN Medical History HYPERLIPIDEMIA Medical History SHINGLES Medical History GUILLAIN-BARRE SYNDROME Medical History Afib Surgical History TUBALIGATION Surgical History EYE SURGERY Surgical History MACULAR HOLE Surgical History LUMP REMOVED FROM LEFT BREAST Surgical History bunionectomy Hospitalization History 3 CHILD BIRTHS Hospitalization History GUILLAIN-BARRE SYNDROME [facility] Other Summary Purpose Family History No Family History Records FoundNo Family History Records FoundNo Family History Records FoundNo Family History Records Found Advance Directives No Advanced Directives Records FoundNo Advanced Directives Records FoundNo Advanced Directives Records FoundNo Advanced Directives Records Found Additional Source Comments INFORMATION SOURCE (unrecogn ized section and content) DATE CREATED AUTHOR 03/13/2021 [facility] DATE CREATED AUTHOR AUTHOR'S ORGANIZ ATION 10/30/2022 [facility] DATE CREATED AUTHOR AUTHOR'S ORGANIZ ATION 12/07/2023 [facility] DATE CREATED AUTHOR AUTHOR'S ORGANIZ ATION 03/06/2024 [facility] REASON FOR VISIT (unrecogniz ed [...] BE BASED ON THE PRIMARY CLINICAL RECORDS. [employer] provides no warranty or guarantee of the accuracy or completeness of information in this document.
[2024-03-09 09:48] LABS: Chol HDL Ratio 2.4; Cholesterol 154 mg/dL (<=200); HDL Cholesterol 63 mg/dL (40-60); Triglycerides 52 mg/dL (<=150); VLDL CHOLESTEROL 10.4 mg/dL
== END 2024-03-09 08:54 | disposition home or self-care (01) ==
LOC: LAB 08:55
PROVIDERS: PCP Internal Medicine; Visit Provider Internal Medicine
DX: E78.2 Mixed hyperlipidemia (principal)
CPT/HCPCS: 36415; 80061

== ENCOUNTER 2024-03-24 11:49 | Emergency (ER) | payer MEDICARE, SELFPAY ==
[2024-03-24 11:54] VITALS: BP 170/96; PULSE 75; TEMP 36.8; O2SAT 96; BMI 26.3
[2024-03-24 12:03] VITALS: PULSE 87
--- NOTE | 2024-03-24 12:04 | XR_ITS ---
The [address] [address] Patient Name: MADAN COONEY MRN: [id number] date: 1950 Sex: F Assigned Patient Location: ER Current Patient Location: ER Accession/Order Number: [id number] Exam Date: 03/24/2024 12:15 Report Date: 03/24/2024 12:46 At the request of: DEAN VALENZUELA Procedure: XR wrist LT min 3V PROCEDURE: XR wrist LT min 3V COMPARISON: None. HISTORY: fall FINDINGS: BONES:Acute complex intra-articular distal radius fracture with no significant angulation or distraction. Moderate degenerative changes with joint space narrowing and marginal osteophyte formation. Subchondral cystic changes of the capitate SOFT TISSUES:Extensive soft tissue swelling EFFUSION:None visible. OTHER: Negative. XR/XR wrist LT min 3V IMPRESSION: Complex intra-articular distal radius fracture Electronically authenticated by: RAFIQ HAMMOND Date: 03/24/2024 12:46
--- NOTE | 2024-03-24 12:05 | ED.UPPEXIN1 ---
HPI HPI - Extremity Injury (Upper) General Chief Complaint: Extremity Injury, Upper Stated Complaint: UPPER LEFT EXTREMITY INJURY/FALL Time Seen by Provider: 03/24/24 12:01 Mode of arrival: walk-in History of Present Illness HPI narrative: 73-year-old female presents for left wrist pain. She was standing on a chair in her kitchen and she fell and hurt her wrist. She sustained a superficial abrasion in her left elbow as well but that does not hurt at all and she sustained no other injuries otherwise. She is left-handed. The pain is mild. She is on Eliquis and her wrist has become swollen. Related Data Home Medications ?Medication ?Instructions ?Recorded ?Confirmed apixaban 5 mg tablet (Eliquis) 5 mg PO BID 10/26/23 03/24/24 ascorbic acid (vitamin C) 500 mg 500 mg PO DAILY 10/26/23 03/24/24 tablet (Vitamin C) calcium carbonate 600 mg-vitamin 1 cap PO BID 10/26/23 03/24/24 D3 5 mcg (200 unit) capsule (Calcium 600 + D(3)) lisinopril 10 1 tab PO DAILY 10/26/23 03/24/24 mg-hydrochlorothiazide 12.5 mg tablet potassium chloride 10 mEq 20 meq PO DAILY 10/26/23 03/24/24 tablet,extended release simvastatin 10 mg tablet 10 mg PO DAILY 10/26/23 03/24/24 metoprolol succinate 100 mg 100 mg PO DAILY 03/24/24 03/24/24 tablet,extended release 24 hr sertraline 50 mg tablet 50 mg PO DAILY 03/24/24 03/24/24 Allergies Allergy/AdvReac Type Severity Reaction Status Date / Time ciprofloxacin [From Cipro] Allergy Severe Unknown Verified 03/24/24 12:01 levofloxacin [From Levaquin] Allergy Severe Joint Pain Verified 03/24/24 12:01 Sulfa (Sulfonamide Allergy Flushing Verified 11/02/23 17:47 Antibiotics) Opioid HPI Opioid Management Most Recent Pain and Opioid Data: Last Pain Scale 5 03/24/24 12:03 Review of Systems ROS Narrative A ten point review of systems is negative except as noted above. PFSH PFSH Social History Little interest or pleasure in doing things: not at all Feeling down, depressed, or hopeless: not at all Exam Narrative Exam Narrative: Nurses note and vital signs reviewed and patient is not hypoxic. General: The patient appears well and in no apparent distress. Patient is resting comfortably on cart. Skin: Warm, dry, no pallor noted. There is no rash noted. Head: Normocephalic, atraumatic Eye: Normal conjunctiva, no drainage Ears, Nose, Mouth, and Throat: oral mucosa is moist. Nares patent. Cardiovascular: Not tachycardic Respiratory: Patient is in no distress, no accessory muscle use, lungs are clear to auscultation, no wheezing, rales or rhonchi Back: non-tender GI: Soft and nontender Musculoskeletal: Superficial abrasion of the left elbow which has full range of motion. There is some swelling of the dorsum of her left wrist but the wrist has good range of motion. Skin intact. Fingers have full range of motion. Neurological: Awake and alert Psychiatric: Cooperative Constitutional Vital Signs, click to edit/add: Last Vital Signs Temp 98.2 F 03/24/24 11:54 Pulse 87 03/24/24 12:03 Resp 18 03/24/24 11:54 BP 170/96 H 03/24/24 11:54 Pulse Ox 96 03/24/24 11:54 O2 Del Method Room Air 03/24/24 11:54 Course Vital Signs Vital signs: Vital Signs Temperature 98.2 F 03/24/24 11:54 Pulse Rate 75 03/24/24 11:54 Respiratory Rate 18 03/24/24 11:54 Blood Pressure 170/96 H 03/24/24 11:54 Pulse Oximetry 96 03/24/24 11:54 Oxygen Delivery Method Room Air 03/24/24 11:54 Temperature 98.2 F 03/24/24 11:54 Pulse Rate 87 03/24/24 12:03 Respiratory Rate 18 03/24/24 11:54 Blood Pressure 170/96 H 03/24/24 11:54 Pulse Oximetry 96 03/24/24 11:54 Oxygen Delivery Method Room Air 03/24/24 11:54 MDM - Extremity Injury (Upper) MDM Narrative Medical decision making narrative: Left distal radius intra-articular fracture is identified. Short arm splint and sling applied by me, application checked and found to be appropriate, she is neurovascular intact. I spoke to Dr. Aguiar and follow-up is arranged for March 27 at 9:30 AM. Treatment diagnosis and follow-up were discussed with the patient. Imaging Data Wrist x-ray: Radiologist's impression: ITS Impressions Wrist X-Ray 03/24/24 12:04 IMPRESSION: Complex intra-articular distal radius fracture Electronically authenticated by: RAFIQ HAMMOND Date: 03/24/2024 12:46 Discharge Plan Discharge Chief Complaint: Extremity Injury, Upper Clinical Impression: Closed fracture of left wrist Patient Disposition: Home, Self-Care Time of Disposition Decision: 13:23 Condition: Good Mode of Transportation: Private Vehicle Prescriptions / Home Meds: No Action metoprolol succinate 100 mg tablet extended release 24 hr 100 mg PO DAILY sertraline 50 mg tablet 50 mg PO DAILY simvastatin 10 mg tablet 10 mg PO DAILY lisinopril-hydrochlorothiazide 10-12.5 mg tablet 1 tab PO DAILY Eliquis 5 mg tablet 5 mg PO BID potassium chloride 10 mEq tablet extended release 20 meq PO DAILY Calcium 600 + D(3) 600 mg-5 mcg (200 unit) capsule 1 cap PO BID ascorbic acid (vitamin C) [Vitamin C] 500 mg tablet 500 mg PO DAILY Hold Instructions: Doctor's Order Print Language: Tamazight Instructions: Wrist Fracture in Adults (ED) Additional Instructions: Leave splint on and do not get it wet. Referrals: TITA SHELDON [Primary Care Provider] - 1 week Leander Aguiar MD [Physician] - 03/27/24 9:30 am
--- OUTSIDE RECORDS SUMMARY | 2024-03-24 12:21 | XMS_ITS | CCD ---
Author Organization [facility] Care Team Providers Care Gis Developer Name Role Phone DIONY ., DR DOBBS Primary Care Unavailable FREDY ., BRANDO Consulting Unavailable FREDY Velazquez, BRANDO Attending Unavailable FREDY ., BRANDO Admitting Unavailable DALI MYERS Consulting Unavailable EDWARD, DR TIFFANIE Ragland Consulting Unavailable CASSIE PERRY Attending Unavailable CASSIE PERRY Admitting Unavailable HOY ., DR DOBBS Primary Care Unavailable CASSIE PERRY Consulting Unavailable HOY ., DR DOBBS Admitting Unavailable HOY ., DR DOBBS Primary Care Unavailable HOY ., DR DOBBS Consulting Unavailable HOY ., DR DOBBS Attending Unavailable WHEELING, DR RAFIQ Chi Consulting Unavailable LEAH SEALS Consulting Unavailable LEAH SEALS Attending Unavailable LEAH SEALS Admitting Unavailable HOY ., DR DOBBS Primary Care Unavailable LEAH SEALS Consulting Unavailable LEAH SEALS Attending Unavailable LEAH SEALS Admitting Unavailable HOY ., DR DOBBS Primary Care Unavailable HOY ., DR DOBBS Consulting Unavailable HOY ., DR DOBBS Attending Unavailable HOY ., DR DOBBS Admitting Unavailable HODeborah ., DR DOBBS Primary Care Unavailable RAFIQ SEALS Consulting Unavailable MYRA LEUNG Attending Unavailable MYRA LEUNG Admitting Unavailable DIONY ., DR DOBBS Primary Care Unavailable MYRA LUENG Consulting Unavailable Broderick Solomon Unavailable ELTAHAWY, EHAB Attending Unavailable ELTAHAWY, EHAB Admitting Unavailable ELTAHAWY, EHAB Attending Unavailable ELTAHAWY, EHAB Admitting Unavailable KATE BRODERICK Attending Unavailable PRETTY PLAZA Attending Unavailable PRETTY PLAZA Attending Unavailable TURNER HARDING Attending Unavailable ELTAHAWY, EHAB Referring Unavailable TURNER HARDING Attending Unavailable TURNER HARDING Admitting Unavailable TITA SHELDON Attending Unavailable TITA SHELDON Attending Unavailable Allergies Allergy Classification Reported Allergen(s) Allergy Type Date of Onset Reaction(s) Facility (1 source) Sulfonamides (Antibiotic) Drug allergy (disorder) 09-01-19 [facility] Repository (1 source) Sulfamethoxazole / Trimethoprim Drug Allergy NAILS TURNED PURPLE ASOCS Other (1 source) Ciprofloxacin; 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: [CIPROFLOXACIN] Drug Allergy 11-24-19 [facility] Repository (1 source) levoFLOXacin; 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: [LEVOFLOXACIN] Drug Allergy 11-24-19 [facility] Repository (1 source) Sulfonamides (Antibiotic); 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: [SULFA (SULFONAMIDE ANTIBIOTICS)] Propensity to adverse reactions to drug (disorder) 12-03-19 [facility] Repository Medications Current Medications [...] 08-25-2022 Chronic Other aftercare (1 source) senior care (current) use of anticoagulants; 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: [ASSISTED CURRNT USE ANTICOAGULANTS] Onset: 08-18-2022 Episodic Other aftercare (1 source) Other terminal block assembler (current) drug therapy; 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: [OT PLY BANDER CURRENT DRUG THERAPY] Onset: 08-18-2022 Episodic Other [...] Range Facility Office Visiton 02-01-2024 Follow-up visit [id number] Sharri Cooney 1950 F Date Provider Department Center 02/01/2024 Key-PRETTY PLAZA CARD [facility] No family history on file Level of Service:69957 SD OFFICE/OUTPATIENT ESTABLISHED MOD MDM 30 MIN Normal [facility] [place] 01-13-2024 ANES - Attestation signed by Cecilia Peter MD at 01/13/2024 8:28 AM Cecilia Peter MD, MPH, [facility], [facility], [facility] Interventional Cardiology Pager Email: [email or web address] Patient: Sharri Cooney Procedure Information Date/Time: 01/13/24 0830 Procedure: Coronary angiography; PC Approved (12/02-05/31) Location: [facility] EMERGING [facility]UT[facility] EXECUTIVE 3 / [facility] VASCULAR LAB (Cath) Providers: Cecilia Peter [...] discussed with attending. Additional Equipment Requests Normal [facility] HPon 01-13-2024 - Attestation signed [...] wishes to proceed. Cecilia Peter MD, MPH, [facility], [facility], [facility] Interventional Cardiology Pager Email: [email or web address] H&P reviewed. The patient was examined and there are no changes to the H&P. Sharri Cooney is a 73 y.o. year old with past medical history of A-fib RVR, hypertension, dyslipidemia, and mild MR presents for ischemic work up for Afib. Patient will undergo coronary angiography. [facility] Jaime 01-13-2024 NURSNOTJosse RN educated pt on d/ c instructions. RN encouraged pt to voice any questions or concerns. Pt verbalizes no questions or concerns at this time. Pt was wheeled off of unit with all of belongings. [facility] HPon 12-14-2023 HP New order for cardia c cath [facility] Orders Onlyon 12-14-2023 Orders Only [id number] Sharri Cooney 1950 F Date Provider Department Center 12/14/2023 166-PRETTY PLAZA CARD [facility] No family history on file [facility] Telephoneon 12-10-2023 Telephone [id number] Reno 1950 F Date Provider Department Center 12/10/2023 BASSAM GAR [facility] [place] [facility] No family history on file [facility] Orders Onlyon 11-25-2023 Orders Only [id number] Sharri Cooney 1950 F Date Provider Department Center 11/25/2023 [id number], HISTORICAL BH CARD [facility] No family history on file Normal [facility] HPon 11-24-2023 [facility] Electrophysiology Consult Note Reason for visit: [...] or signs patient was recently seen in [place] [facility] 08/2022 for palpitations. She was found [...] palpitations, lightness, dizziness, fatigue 08/2022 ECG by [place] [facility]- appears to be sinus tach with [...] alcohol infrequently, no significant caffeine intake, no kxes-bzs-zkimfny decongestions Family history: Her mother of a [...] alcohol infrequently, no significant caffeine intake, no mylq-eph-iqpiwic decongestions Family history: Her mother of a [...] on file U (more content not included)... [facility] NURSNOTEon 11-24-2023 NURSNOTE RN educated pt on d/ c instructions. RN encouraged pt to voice any questions or concerns. Pt verbalizes no questions or concerns at this time. Pt was walked off of unit with all of belongings. [facility] Office Visiton 11-03-2023 Follow-up visit [id number] Sharri Cooney 1950 F Date Provider Department Center 11/03/2023 TURNER GAY [facility] CARD [facility] No family history on file Level of Service:86601 SD OFFICE/OUTPATIENT ESTABLISHED LOW MDM 20 MIN Reason for Visit and Comments: Follow-up [308204] Atrial Fibrillation [80] [facility] 36on 10-29-2023 36 I ordered a stress test for her along with increased metoprolol and Kcl. Also started mag oxide. [facility] send [facility]. Please call patient and schedule her an appt with Dr. Harding at his soonest available. He said if she really wants to get in [place] with him he can see her at [place] next week while he is on Med . Thanks! Normal [facility] Telephoneon 10-29-2023 Telephone [id number] Sharri Cooney 1950 F Date Provider Department Center 10/29/[address] [facility] No family history on file Normal [facility] Office Visiton 10-28-2023 Follow-up visit [id number] Sharri Cooney 1950 F Date Provider Department Center 10/28/2023 PRETTY GALLAGHER [facility] No family history on file Level of Service:90383 SD OFFICE/OUTPATIENT ESTABLISHED MOD MDM 30 MIN Reason for Visit and Comments: Atrial Fibrillation [80] Palpitations [613781] Normal [facility] Office Visiton 06-04-2023 Follow-up visit [id number] Sharri Cooney 1950 F Date Provider Department Center 06/04/2023 KATE WHITTEN [facility] No family history on file Level of Service:12748 SD OFFICE/OUTPATIENT ESTABLISHED MOD MDM 30-39 MIN Normal [facility] COVID/FLU RT-PCRon 3 SARS-CoV-2 (COVID-19) RNA VERONICA+probe Ql (Unsp spec) Positive ASOCS Other COVID/FLU RT-PCR Negative [employer] Other SGOTo 10-23-2022 AST [Catalytic activity/Vol] 45 U/L Critically high 15-37 [facility] Comment on above: Performed By: #### A LT, AST #### [facility] [address] [place] [address] Dr. Fred Treviño 10-23-2022 ALT [Catalytic activity/Vol] 48 U/L Normal 14-59 [facility] Comment on above: Performed By: #### A LT, AST #### [facility] [address] [address] [address] Fred Jackson SGOTon 09-10-2022 AST [Catalytic activity/Vol] 40 U/L Critically high 15-37 [facility] Comment on above: Performed By: #### A LT, AST #### [facility] [address] [address] [address] Fred Jackson SGPTon 09-10-2022 ALT [Catalytic activity/Vol] 52 U/L Normal 14-59 [facility] Comment on above: Performed By: #### A LT, AST #### [facility] [address] [address] [address] Fred Jackson XR DEXA BONE DENSITYon 08-25 XR DEXA BONE DENSITY DEXA Bone Density Study CLINICAL: Evaluate bone mineral density. Postmenopausal COMPARISON: FINDINGS: The bone density study was assessed by dual-energy x-ray absorptiometry with the Shoulder Tap scanner. The test results are expressed in [...] RAFIQ SEALS Date: 2022-08-25 09:50 Normal [facility] BNPon 08-16-2022 Natriuretic peptide B (Bld) [Mass/Vol] 87.0 pg/mL Normal <=900.0 [facility] Comment on above: Performed By: #### T SH, CMP, BNP, CMADM ####[facility] [address] [address]Dr. Fred Jackson CARDIAC JASSI ADMITon 023 CK [Catalytic activity/Vol] 152 U/L Normal 26-192 [facility] Comment on above: Performed By: #### T SH, CMP, BNP, CMADM ####[facility] [address] [address]Dr. Fred Jackson CK.MB [Mass/Vol] 2.96 ng/mL Normal <=3.60 [facility] Comment on above: Performed By: #### T SH, CMP, BNP, CMADM ####[facility] [address] [address]Dr. Fred Jackson HSTROP 6.1 pg/mL Normal 4.0-51.3 [facility] Comment on above: Result Comment: CUT- OFF POINTS HAVE BEEN ESTABLISHED BASED ON THE FOURTH UNIVERSAL DEFINITIONS OF MYOCARDIAL INFARCTION. THE UPPER REFERENCE LIMIT (URL) OF TROPONIN, DEFINED THE 99TH PERCENTILE OF cTnI DISTRIBUTION IN A REFERENCE POPULATION, HAS BEEN CONFIRMED THE DECISION THRESHOLD FOR NC DIAGNOSIS. Performed By: #### T SH, CMP, BNP, CMADM ####[facility] [address] [address]Dr. Fred Jackson ANGELI 80 ng/mL Normal 9-82 [facility] Comment on above: Performed By: #### T SH, CMP, BNP, CMADM ####[facility] [address] [address]Dr. Fred Jackson CBC AUTO DIFFon 08-16-2022 BASO # 0.1 103/ul Normal 0.0-0.1 [facility] Comment on above: Performed By: #### C BC #### [facility] [address] [place] [address] Dr. Fred Jackson Basophils/100 WBC (Bld) 1.4 % Normal 0.2-2.0 [facility] Comment on above: Performed By: #### C BC #### [facility] [address] [place] [address] Dr. Fred Jackson EO # 0.3 103/ul Normal 0.0-0.7 [facility] Comment on above: Performed By: #### C BC #### [facility] [address] [address] [address] Fred Jackson Eosinophils/100 WBC (Bld) 3.1 % Normal 0.9-7.0 [facility] Comment on above: Performed By: #### C BC #### [facility] [address] [place] [address] Dr. Fred Jackson Erythrocyte distribution width (RBC) [Ratio] 12.0 % Normal 11.0-15.0 [facility] Comment on above: Performed By: #### C BC #### [facility] [address] [place] [address] Dr. Fred Jackson Hematocrit (Bld) [Volume fraction] 40.5 % Normal 36.0-48.0 [facility] Comment on above: Performed By: #### C BC #### [facility] [address] [place] [address] Dr. Fred Jackson Hemoglobin (Bld) [Mass/Vol] 13.8 g/dL Normal 12.0-16.0 [facility] Comment on above: Performed By: #### C BC #### [facility] [address] [place] [address] Dr. Fred Jackson IG # 0.06 10e3/ul Critically high 0.00-0.03 [facility] Comment on above: Performed By: #### C BC #### [facility] [address] [place] [address] Dr. Fred Jackson IG % 0.6 % Critically high 0.0-0.5 [facility] Comment on above: Performed By: #### C BC #### [facility] [address] [place] [address] Dr. Fred Jackson LYMPH # 3.8 103/ul Normal 1.2-3.8 [facility] Comment on above: Performed By: #### C BC #### [facility] [address] [place] [address] Dr. Fred Jackson Lymphocytes/100 WBC (Bld) 36.6 % Normal 20.5-60.0 [facility] Comment on above: Performed By: #### C BC #### [facility] [address] [place] [address] Dr. Fred Jackson MANUAL DIFF REQ NO Normal [facility] Comment on above: Performed By: #### C BC #### [facility] [address] [place] [address] Dr. Fred Jackson MCH (RBC) [Entitic mass] 31.2 pg Normal 26.7-34.0 [facility] Comment on above: Performed By: #### C BC #### [facility] [address] [place] [address] Dr. Fred Jackson MCHC (RBC) [Mass/Vol] 34.1 g/dL Normal 29.9-35.2 [facility] Comment on above: Performed By: #### C BC #### [facility] [address] [place] [address] Dr. Fred Jackson MCV (RBC) [Entitic vol] 91.6 fL Normal 81.0-99.0 [facility] Comment on above: Performed By: #### C BC #### [facility] [address] [place] [address] Dr. Fred Jackson MONO # 1.2 103/ul Critically high 0.3-0.8 [facility] Comment on above: Performed By: #### C BC #### [facility] [address] [place] [address] Dr. Fred Jackson Monocytes/100 WBC (Bld) 11.3 % Normal 1.7-12.0 [facility] Comment on above: Performed By: #### C BC #### [facility] [address] [place] [address] Dr. Fred Jackson NEUT # 4.9 103/ul Normal 1.4-6.5 [facility] Comment on above: Performed By: #### C BC #### [facility] [address] [place] [address] Dr. Fred Jackson Neutrophils/100 WBC (Bld) 47.0 % Normal 43.0-75.0 [facility] Comment on above: Performed By: #### C BC #### [facility] [address] [place] [address] Dr. Fred Jackson Platelet mean volume (Bld) [Entitic vol] 8.9 fL Critically low 9.5-13.5 [facility] Comment on above: Performed By: #### C BC #### [facility] [address] [place] [address] Dr. Fred Jackson PLT 404 103/ul Normal 150-450 [facility] Comment on above: Performed By: #### C BC #### [facility] [address] [place] [address] Dr. Fred Jackson RBC 4.42 106/ul Normal 4.20-5.40 [facility] Comment on above: Performed By: #### C BC #### [facility] [address] [address] [address] Fred Jackson WBC 10.3 103/ul Normal 4.0-11.0 [facility] Comment on above: Performed By: #### C BC #### [facility] [address] [address] [address] Fred Jackson PROF 14(COMP METB)on 023 Albumin [Mass/Vol] 4.3 g/dL Normal 3.4-5.0 [facility] Comment on above: Performed By: #### T SH, CMP, BNP, CMADM ####[facility] [address] [address]Dr. Fred Jackson Albumin/Globulin [Mass ratio] 1.2 {ratio} Normal [facility] Comment on above: Performed By: #### T SH, CMP, BNP, CMADM ####[facility] [address] [address]Dr. Fred Jacksno ALP [Catalytic activity/Vol] 96 U/L Normal 46-116 [facility] Comment on above: Performed By: #### T SH, CMP, BNP, CMADM ####[facility] [address] [address]Dr. Fred Jackson ALT [Catalytic activity/Vol] 34 U/L Normal 14-59 [facility] Comment on above: Performed By: #### T SH, CMP, BNP, CMADM ####[facility] [address] [address]Dr. Fred Jackson Anion gap [Moles/Vol] 16.6 mmol/L Normal [facility] Comment on above: Performed By: #### T SH, CMP, BNP, CMADM ####[facility] [address] [address]Dr. Fred Jackson AST [Catalytic activity/Vol] 39 U/L Critically high 15-37 [facility] Comment on above: Performed By: #### T SH, CMP, BNP, CMADM ####[facility] [address] [address]Dr. Fred Jackson Bilirubin [Mass/Vol] 0.8 mg/dL Normal 0.2-1.0 [facility] Comment on above: Performed By: #### T SH, CMP, BNP, CMADM ####[facility] [address] [address]Dr. Fred Jackson Calcium [Mass/Vol] 10.1 mg/dL Normal 8.5-10.1 [facility] Comment on above: Performed By: #### T SH, CMP, BNP, CMADM ####[facility] [address] [address]Dr. Fred Jackson Chloride [Moles/Vol] 91 mmol/L Critically low 98-107 [facility] Comment on above: Performed By: #### T SH, CMP, BNP, CMADM ####[facility] [address] [address]Dr. Fred Jackson CO2 [Moles/Vol] 25.5 mmol/L Normal 21.0-32.0 [facility] Comment on above: Performed By: #### T SH, CMP, BNP, CMADM ####[facility] [address] [place], [place] [address]Dr. Fred Jackson Creatinine [Mass/Vol] 0.95 mg/dL Normal 0.55-1.02 [facility] Comment on above: Performed By: #### T SH, CMP, BNP, CMADM ####[facility] [address] [place], [place] [address]Dr. Fred Jackson EGFR-AF [facility] >60 Normal >=60 [facility] Comment on above: Performed By: #### T SH, CMP, BNP, CMADM ####[facility] [address] [address]Dr. Fred Jackson EGFR-NON AF [facility] 58 mL/min/1.73m2 Critically low >=60 [facility] Comment on above: Performed By: #### T SH, CMP, BNP, CMADM ####[facility] [address] [address]Dr. Fred Jackson Globulin (S) [Mass/Vol] 3.6 g/dL Normal [facility] Comment on above: Performed By: #### T SH, CMP, BNP, CMADM ####[facility] [address] [address]Dr. Fred Jackson Glucose [Mass/Vol] 116 mg/dL Critically high 74-106 [facility] Comment on above: Performed By: #### T SH, CMP, BNP, CMADM ####[facility] [address] [address]Dr. Fred Jackson Potassium [Moles/Vol] 3.1 mmol/L Critically low 3.5-5.1 [facility] Comment on above: Performed By: #### T SH, CMP, BNP, CMADM ####[facility] [address] [address]Dr. Fred Jackson Protein [Mass/Vol] 7.9 g/dL Normal 6.4-8.2 [facility] Comment on above: Performed By: #### T SH, CMP, BNP, CMADM ####[facility] [address] [place], [place] [address]Dr. Fred Jackson Sodium [Moles/Vol] 130 mmol/L Critically low 136-145 [facility] Comment on above: Performed By: #### T SH, CMP, BNP, CMADM ####[facility] [address] [address]Dr. Fred Jackson Urea nitrogen [Mass/Vol] 17.0 mg/dL Normal 7.0-18.0 [facility] Comment on above: Performed By: #### T SH, CMP, BNP, CMADM ####[facility] [address] [address]Dr. Fred Jackson Urea nitrogen/Creatini ne [Mass ratio] 17.9 mg/mg Normal [facility] Comment on above: Performed By: #### T SH, CMP, BNP, CMADM ####[facility] [address] [address]Dr. Fred Jackson PROTIMEon 08-16-2022 INR Coag (PPP) [Relative time] 1.01 {INR} Normal [facility] Comment on above: Performed By: #### P TT, PT ####[facility] [address] [address]DrCaroline Jackson INR GUIDELINES SEE BELOW Normal [facility] Comment on above: Result Comment: DOTTY RED INR: 2.0 - 3.0 CONDITIONS NOT LISTED BELOW 2.5 - 3.5 FOR PROSTHETIC HEART VALVE REPLACEMENT 2.5 - 3.5 RECURRENT THROMBOSIS Performed By: #### P TT, PT ####[facility] [address] [address]DrCaroline Jackson PT Coag (PPP) [Time] 10.7 s Normal 9.0-11.6 [facility] Comment on above: Performed By: #### P TT, PT ####[facility] [address] [address]Dr. Fred Jackson PTTon 08-16-2022 aPTT Coag (Bld) [Time] 33.9 s Normal 22.3-36.2 [facility] Comment on above: Performed By: #### P TT, PT ####[facility] [address] [address]Dr. Fred Jackson TROPONIN, HIGH SENSITIVITYon 08-16-2022 HSTROP 15.1 pg/mL Normal 4.0-51.3 [facility] Comment on above: Result Comment: CUT- OFF POINTS HAVE BEEN ESTABLISHED BASED ON THE FOURTH UNIVERSAL DEFINITIONS OF MYOCARDIAL INFARCTION. THE UPPER REFERENCE LIMIT (URL) OF TROPONIN, DEFINED THE 99TH PERCENTILE OF cTnI DISTRIBUTION IN A REFERENCE POPULATION, HAS BEEN CONFIRMED THE DECISION THRESHOLD FOR NC DIAGNOSIS. Performed By: #### H STROPN #### [facility] [address] [address] [address] Fred Jackson TSHon 08-16-2022 TSH 4.364 uIU/mL Critically high 0.358-3.740 [facility] Comment on above: Performed By: #### T SH, CMP, BNP, CMADM ####[facility] [address] [address]Dr. Fred Jackson XR CHEST 1 Von 08-16-2022 [...] DALI MYERS Date: 2022-08-16 00:02 Normal [facility] Covid-19 PCR (CVDTB)on 03-06 SARS-CoV-2 (COVID-19) RNA VERONICA+probe Ql (Unsp spec) Detected Critically abnormal NOT DETECTED [facility] Comment on above: Result Comment: This test is not yet approved or cleared by the [place] FDA. When there are no FDA-approved or cleared tests available, and other criteria are met, FDA can make tests available under an emergency access mechanism called an Emergency Use Authorization (EUA). The EUA for this test is supported by the [place] of Health and Human Service's (HHS's) declaration [...] longer be used). Performed By: #### C [facility] ####[facility] [address] [place], [place] [address]CmCaroline Jackson US CAROTID ART BILon 022 US [...] by: TIFFANIE LEON Date: 2022-03-12 14:51 Normal [facility] MAMM SCREEN 3D JASMEET CADon 02-09-2022 MG MAMM SCREEN 3D JASMEET CAD Patient: SHARRI COONEY Exam Date: 02/09/2022 : 1950 Gender:F Ordering : DR RINKU PETERSON . Admission #: [id number] Family : Order #: [id number] CLICK HERE TO VIEW EXAM RADIOLOGY REPORT [...] prostate cancer at age 60. LOCATION: [facility] BREAST COMPOSITION: Heterogeneously dense,which may obscure [...] Zuñiga MD on 02/09/2022 at 09:50 Normal [facility] Coding Summary.on 03-12-2021 Coding Summary. CD:[id number] G h0bWw+PGhlYWQ+WX4UFTO vS40cyFIyrB8FB1bGYG0H ENSGVTKTUF6EQG7umKD1C TqnV2DdrgYv YzfdmHRgUO91FFg7JMB2q IapSJmvvL4skTGxJ6q0Oq WrWN43pA90CFxzWDLbZcY 3LjZpbjsgbWFy C7ppJdZluTWoWid+PHRhY mxlIHdpZHRoPScxMDAlJy OvvZghOF1oXs4zVLCpDWM vbGxhcHNlOiBj o6irPVPpPWyrYV2mpMiaU 9VljOT3MZDmj2n6Zh65xM I+XVVbZUS6nJiqDYmcm77 3XjJta3qyMEQ4 wMBtFEetDOA1A84nq5A7O OOpNBDzPII5xDY8lZ8msS wwlgbmD3XlxADhLnX0NTJ 6nOSidX4odXwh fyqajA9rGhr+A79QGD2VE SNZNN3LCwx0T9NnLpkmsT I+XJ63SUWjBN95uJUqiVP nq0htzBl4NgIu UQQkYWZ4uYdyWRiub7MxH TLyC87fzHNpz0B6DAZhrY detHOwJbMtjVI1iL0oVAh vkyewo9eemioh Anytk3xaaq73sF26N33cI YqbCAJjDGQ6LJIaKSBkeT wbxh4rgC2sHm4+XRixn0i ms4rtlGc0OfXr FZCsheYptNbiBCA7y4DzN x86V2LibVwjo1KuImr7ba 19qEMoo4T3oTA7YLgjUNK gvA3sHGswUtD8 AAYqSnGlmO41gLWkYSkjH c0oeAkimImxHK3jDCDwpb ldFTZlpM8kATFngVGctGv zYW7kGFYkazkk e257PpTfYRF7BVNqdILmI 7AxuE9rWrWyMLIdXWGqM1 AbyOMwIDysU284MHexAwQ 0JNJrhdHlM4Xn MPImnBwnGzY9t8B6Zr8Hh 8AgpityQPK3HHnvXBW5Qr S7CfVfDrM7R8DiFll0XCH biMcyNB7rT9Xb JOFapawhwbchrWS8SBIyV KGadC69xULhWYwoJg0us7 Q9q523FADgHEJrpS62Ko5 udDogMTBwdCBU dT3anjfsk8ucjaqaNgBbL OPgTCn1PLe7XLGmfZxwKc TiPEH3CgA5JGP8yUDltX9 vrCfzidbswD1d Oyc+P09nnX7uZZN3XQY0o roaYKOkquXmIX95PQ47C3 RyPjwvdGFibGU+PGRpdiB ppYzhPP5rVgRw c6isy1NcZDnyZ1RrPOHgI ZmhVlg1FKSnONJ9iHR1jK 3vVSRpWZusg1U8mCO2I9K eipRhpz0so2df MVDbCSbiP02spDGcd8G8O MVutWU5QBTooZbdWiHioA 93Oyc+OOIbwXseu7GrQdh vs5khd5frmPw0 SjIvNUObhdVhnXynAJP4j 7WoNw39M88uNQrpUNXeUO KmSHLsCYTawNhlxh9rsM6 wIi8+PGNvbCB3 mDK0mT9xAVUvJgX6XWplA 963BdOgbLCzWubul9sqc6 cmySr9XjNjMZGgfhPueIj rIAH9p2DqJy83 K63fAArmIGZxMXBdCOFgP TIkqTycbz1swJ3vOa0+PC 7fg9ovwe13kQ72jQM+PHR sIJC5pPgzSPyz QHAsqF7rQNaiCmE2ZWUtA jOqqD83hJJxJFpdWv9wmI iacAahPL2fSKSqvpwlq40 3CrLca6elJUTt tFMzCEcmYUU5M28rj0N5J PCoGKIfHVB1jJM6pV7buD lnbjogbGVmdDsgdmVydGl oYBwuHAogX837 IHRvcDsnPlBhdGllbnQgT tShBHr9B7ZwQsj5ZAOzzY dlIU8fbOQwGWazEs8dlQu alTqiEL4qGPSy umngk164IlXyk3ecARJin EByXCujHLQ7P71qw8U8DD PhVMRlDDH7bSS7jU7kqUo nbjogbGVmdDsg kyBnoJljDBqaDKveU538E HRvcDsnPkJpcnRoIERhdG L9SN58JY71kOBce9J2sUN 7G8MmLDVgpewu qhkimZG8HOMwDQNggM64Q a7etYltLx2bRACpTVY5PE UiwVQiK8CuyF9tWpZmUZT eYWGhS1YpoNMv QTvhD756OWyuOnB3CFLbs wCpO6HjNODawZmsGxJ6h0 R7Cf4YL3Y8MR21EB41vOJ tn2P9pII4I7Uv VQBeptzodnphkHK5OIQiF UDjcK17Vt8jbFwyTs2rFU NeUKM0TTSbhVIaO3XlaZ8 yOiAjMDAwMDAw C8FedORiIUwbI878HDpoQ wZ0ZLKpciDhM0UoWVRjjM vsSdN2p6L8Oy4XUTm5BS8 9NF32lIXoa1V1 rXN7Y1GrRBCuoffvhkrbc ZF4WVAbIDYokZ10Ac8wnC pnWk3vIBRcVOL8LRJdfQD lC6DkrH8wYoEj NEEnKHIlM7WgeCKwFWbrA 641HJvmEvV0UNCkdmJdI4 LcYNQusJlsSeT9s5W7Vk2 WCJUpQL63LIP1 gHE9DD16XH76M5LfTwybn GFibGU+PHRhYmxlIHdpZH RoPScxMDAlJyBzdHlsZT0 dKh4fFPKlJNGl hWwswEIjReThi1enYCSbU QddVP9uaSgrV9XjeBZ4DV Pak6c0Ci21C85aX1MuuUM +EXDpjJJ8aMT1 lV9dRgYuMlT1VFmlG242V xPuhWLhGksxe1mhu0wvdF s8NqN5LSNxkkGqlStoOHS 8u4MtRl41Z27z IHdpZHRoPSIxNSUiIHZhb Wmdua8dgU1fCc7+PGNvbC G1vBA6dE5uWqNcWqA8PKb nE110VdFurDBd Zhoiv6vzp6wxkEn7ExUwZ ZByeiMpsBmpDRF1g6IeDi 32N5JzuWtko7PtPih7rw6 3dMWgv4K3aTZ7 Z7YbRYCxrhkzaPTeaMlnL F3bEDMatdfvMMQvcA3uDF SnM6v1EtSoMgW9TKjtV1G qzmD2JRFphZCc ZFgiYFR2M08lj7H4WTLoQ JJkCWD7jYL4fQ7dlFydng ogbGVmdDsgdmVydGljYWw cZParW944ZQHa oAlqLVFanR2xPPRxlIBgz QtbOQ3lRGFgadtaJbPASm EQSXguNUMIItDKPiW5E1O oRkz6LKHulAbz WY7raRJnVFdnUh3nhHivp AquIB0oGIOhfehnLXQmqW 6lHVXxjMGznTmtBQ0dRFA amcjnh472YrQc WNA3PNHsmGVcM2YocX6dI oDgNEBiCABtY7SjbRWlAD eqA129LEwoIaF0UMTvlvS iK7EiATYwsAek HzR5u8X0Br1fXf7gIS5cS RRpSS89RH24kKZyw1I7tM P2E3WwGZYorezscwxcaCQ 5VIAiDDEvzN23 oVKeLKzpTe4oj4Z4s328B DEnDZLhiQ01Bw8vzFzeUI TnqHLWaL0crpocf3fkrcb gIzAwMDAwMDt0 YQs5QIXbbWxnFcHpHFR7A iS9XYS7mPKgvB6qyXftwv daxE4aJbj+NjggWWVhcnM 2K4BoBih8XYKf nOvtQV5cwWGpGEdbMg9gb IrbyDsoSX2wMTXcsfxeLS KhjI8kTNZomNHwoFinSW3 jPZTquckei776 ZyKnPDP2IIYbmYMvV8Yum E4pJfBeUSEdHUJoS0CszR EnUTkiP631DNbyAlB3GME rjqAmV9HjUYRi sOxqVqE1d1Y6Tt5ZGC5yf VO8X4XuPgq0NSPyhElsAL 2xfKPlBGzpDy1ipOllrYq nTB1hQRSfpads ILJxkB3yMXFlfHJbbIboG S9yJJIucnkqb436WeZmHQ K9ANVlfHHqS8LqcG3iVuP sYIVlWZVeA7Rb oRXxVHnyQ522CEoaRrR0O XHlpeOeZ5SyQBAwbPipGl Z4g5V3Yj2OIVVoWCTnvYM qUtE2Q4XhRdhh dHI+VF81CMGjBZ95ePEdw IKrg8kyjNi4VtUpAGJdCM A9jMoyHWszr3MnQCUwA09 efYCcp5L2LQSm hBeafHCbFcPewOV1bS2hC Bqdakblj4kcwptaTzvxy6 onyj78uN53G04fYUepNQI oPSIzMCUiIHZh sJlsmh8uhA4uZg7+PGNvb ZI4gBE4wT1hQpIdDtQ4DH xyG983UqLzrQImHdmzz8b tw8exaAr8TjNe JWNciaRuiUbhFQF4f4JeR s03J39pNCiiABEjVALgIB YqUHYhiJwhzy1pvP9iVw7 +EC8ku3qqls55 sH22zEN+ZJCgBCH3gUxyJ LvjCCDhjB1aWSnkApX3NS CnJvDtcV27wGPrYIqgTz4 ieJupqLygOG6z HMLiuiikj238EqYyk3tjA BUdwZCuYRamDAZ9K03qu3 J2GYNqPQMcNRX3dQL1wS5 hbGlnbjogbGVm dDsgdmVydGljYWwtYWxpZ 492ISVkiTvuOcOpnKZqL6 xuyqJDPY5iUgyqhBS+PHR xXLX5kGeqYGon JXMysZ7wONLpA8m8QhKfR wS8OQnsH1MlgkU2LUSbuQ DrIGGeoFAVvK4wwevjc1f vcjogIzAwMDAw KYg4SOe8EIGbeCgxLmVcS IU3IlP3DKQ5nDZjrS7seY ltuyxpfI1aBkf+RklOOjw vdGQ+PHRkIHN0 hLqdTSqeKKUujI8mLCVqP 7r0JzYtHmE2RCksD3Qemb S3LYFypJCvPWHkdXNHiT4 shcffc0fdmqxw HlFtRUQnEZg8VAb2MFVpb SkzXaIgGTF1TyQ8JTP7aA OjxK5wnNulatybgN5yNsi +TVJOOjwvdGQ+ CXZeLHW2aDalCDjzDCJki D0kPLBmR5a5OeBgVjZ9BT ckL2JxzrY4BMBbwDTtVSE gjOTUtJ4rjszx o7dbsnopRwEcCNZgNLu5W Rf2WBCcyUnxFnYcQNM3Nk U9DDV2yNLowK8wiGizoga zyK6jUkc+UGF5 SZA5WP53JV71Z9FzZpimj GFibGU+PHRhYmxlIHdpZH RoPScxMDAlJyBzdHlsZT0 bJq9eCXCaGSWh bGxh (more content not included)... Normal [facility] Physician Orderon 02-19-2021 Physician Order [id number]# 1.00CD:[address] [facility] Vital Signs Date Time Vital Sign Value Performing Clinician Facility 04-22-2023 12:20-0400 Body height 153.67 cm Bro[facility] Other [facility] Other 04-22-2023 12:20-0400 Body mass index (BMI) [Ratio] 24.58 kg/m2 [facility] Other [facility] Other 04-22-2023 12:20-0400 Body temperature 98.3 [degF] [facility] Other [facility] Other 04-22-2023 12:20-0400 Body weight 58.06 kg [facility] Solomon Other [facility] Other 04-22-2023 12:20-0400 Respiratory rate 18 /min [facility] Other [facility] Other 04-22-2023 12:20-0400 SaO2% (BldA) [Mass fraction] 96 % [facility] Other [facility] Other Encounters Encounter Date Encounter Type Care Provider Facility Start: 03-08-2024 End: 03-08-2024 ambulatory TITA SHELDON Not Available Start: 02-01-2024 End: 02-01-2024 ambulatory PRE[facility] Start: 01-13-2024 End: 01-13-2024 ambulatory [facility] Start: 12-10-2023 End: 12-10-2023 ambulatory [facility] Start: 12-06-2023 End: 12-06-2023 ambulatory TITA SHELDON Not Available Start: 11-24-2023 End: 11-24-2023 ambulatory [facility] Start: 11-03-2023 ambulatory [facility] Start: 10-28-2023 End: 10-28-2023 ambulatory PRETTY [facility] Start: 06-04-2023 End: 06-04-2023 ambulatory KATE MARIAWIJonh [facility] Start: 04-22-2023 End: 04-22-2023 ambulatory [facility] Other [facility] Other Start: 04-22-2023 Office outpatient vi sit [...] acellular pertussis vaccine, adsorbed [facility] Solomon Other [facility] Other Payers Date Payer Category Payer Medicare [id number] 1950 Unknown [id number] 2.16.84 [id number] 1950 Unknown [id number] 2.16.84 [id number] 1950 Unknown [id number] 2.16.84 [id number] 1950 Unknown [id number] 2.16.84 [id number] 1950 Unknown [id number] 2.16.84 [id number] 1950 Unknown [id number] 2.16.84 [id number] 1950 Unknown [id number] 2.16.84 [id number] 1950 Unknown [id number] 2.16.84 [id number] 1950 Unknown [id number] 2.16.84 [id number] Social History Date Type Detail Facility Unknown if ever smoked [facility] Other Sex Assigned At Sex Assigned At Bir th [facility] Other Clinical Notes 04-22-2023 to 02-01-2024 Note [...] feels anxious when she is in a.fib. 12/1/23: She is here for 6-month follow-up she [...] or signs patient was recently seen in [place] [facility] 08/2022 for palpitations. She was found [...] palpitations, lightness, dizziness, fatigue 08/2022 ECG by [place] [facility]- appears to be sinus tach with [...] alcohol infrequently, no significant caffeine intake, no pzmb-keg-fbticgj decongestions Family history: Her mother of a [...] alcohol infrequently, no significant caffeine intake, no ogva-mec-yzrqwqc decongestions Family history: Her mother of a [...] Not on file (more content not included)... [facility] 02-01-2024 Note Patient here for fol low up heart cath with Dr. Peter on 01/13/2024. Says she's been feeling good. Denies chest pain, SOB, palpitations, lightheadedness/syncope, and bleeding on Eliquis. BP's from home are low at times. Review of Systems All other systems reviewed and are negative. [facility] 01-13-2024 Note Cardiovascular Labor atory [...] left radial artery was obtained. A 6 Yoruba glide sheath was inserted without difficulty. Difficulty [...] is angiographically nonobstructive. INDICATIONS: Abnormal stress test [facility] 12-14-2023 [facility] 11-25-2023 Note Do we have the exerc ise portion results? [facility] 11-25-2023 Note FYI - I made patient aware that we will proceed with coronary angiogram. I placed the orders but EPIC is being EPIC and won't let me close the encounter so working with IT on this. Thx [facility] 11-25-2023 Note EKG portion was posi tive for inferior ischemia. Nuc imaging was negative for ischemia. Her sx's are dyspnea. We are looking to start flecanide for her for her a.fib. Should we proceed with cath or coronary CTA? Thanks! [facility] 11-24-2023 Note LOOP IMPLANT PROCEDU RE NOTE DATE OF PROCEDURE: 11/24/23 PERFORMING PHYSICIAN: Dr. Turner Harding ATHLETE MARKETING AGENT: NA INDICATIONS FOR PROCEDURE: 1. SVT/AF surveillance [...] the sternum on the left using the [employer] tool. The loop recorder was then injected [...] the incision. Turner Harding MD Cardiac Electrophysiology. [facility] 11-03-2023 Note [place] Electrophysiology Consult [...] or signs patient was recently seen in [place] [facility] 08/2022 for palpitations. She was found [...] palpitations, lightness, dizziness, fatigue 08/2022 ECG by [facility]- appears to be sinus tach [...] alcohol infrequently, no significant caffeine intake, no wgcy-hnc-ctdsfih decongestions Family history: Her mother of a [...] alcohol infrequently, no significant caffeine intake, no pjls-vxj-qfyrele decongestions Family history: Her mother of a [...] on file U (more content not included)... [facility] 10-28-2023 Note [place] Electrophysiology Consult [...] or signs patient was recently seen in [place] [facility] 08/2022 for palpitations. She was found [...] palpitations, lightness, dizziness, fatigue 08/2022 ECG by [place] [facility]- appears to be sinus tach with [...] alcohol infrequently, no significant caffeine intake, no tdze-nmj-vfcqycw decongestions Family history: Her mother of a [...] alcohol infrequently, no significant caffeine intake, no wqzu-ruq-sfkkkoc decongestions Family history: Her mother of a [...] Intimate Partner Violence (more content not included)... [facility] 10-28-2023 Note Patient here for [facility] ED for afib. Says she recently got back from a cruise and was very anxious the whole time about everything. Denies chest pain, SOB, lightheadedness/syncope, and bleeding on Eliquis. In the ED she was given RX for hydroxyzine for her anxiety. Lili Michael OFFICE MACHINE PUNCH OPERATOR advised that she not take this because [...] All other systems reviewed and are negative. [facility] 06-04-2023 Note Patient here for [...] All other systems reviewed and are negative. [facility] 06-04-2023 Note [place] Electrophysiology Consult Note Reason [...] or signs patient was recently seen in [place] [facility] 08/2022 for palpitations. She was found [...] palpitations, lightness, dizziness, fatigue 08/2022 ECG by [place] [facility]- appears to be sinus tach with [...] alcohol infrequently, no significant caffeine intake, no avov-yct-qzvaxxr decongestions Family history: Her mother of a [...] alcohol infrequently, no significant caffeine intake, no dtap-bbm-dclmrkk decongestions Family history: Her mother of a [...] (Eliquis) 5 m (more content not included)... [facility] 04-22-2023 Evaluation note Encounter Date [...] see your pcp. Take tylenol as needed. [facility] Other History general Narrative - Reported* Type Description Date Medical History HTN Medical History HYPERLIPIDEMIA Medical History SHINGLES Medical History GUILLAIN-BARRE SYNDROME Medical History Afib Surgical History TUBALIGATION Surgical History EYE SURGERY Surgical History MACULAR HOLE Surgical History LUMP REMOVED FROM LEFT BREAST Surgical History bunionectomy Hospitalization History 3 CHILD BIRTHS Hospitalization History GUILLAIN-BARRE SYNDROME [facility] Other Summary Purpose Family History No Family History Records FoundNo Family History Records FoundNo Family History Records FoundNo Family History Records Found Advance Directives No Advanced Directives Records FoundNo Advanced Directives Records FoundNo Advanced Directives Records FoundNo Advanced Directives Records Found Additional Source Comments INFORMATION SOURCE (unrecogn ized section and content) DATE CREATED AUTHOR 03/13/2021 Vinny Christy [facility] DATE CREATED AUTHOR AUTHOR'S ORGANIZ ATION 10/30/[address] [facility] Pankaj [facility] DATE CREATED AUTHOR AUTHOR'S ORGANIZ ATION 03/06/2024 [facility] DATE CREATED AUTHOR AUTHOR'S ORGANIZ ATION 03/09/2024 [facility] EPIC REASON FOR VISIT (unrecogniz ed section and [...] BE BASED ON THE PRIMARY CLINICAL RECORDS. [employer] [facility]. provides no warranty or guarantee of the accuracy or completeness of information in this document.
== END 2024-03-24 13:47 | disposition home or self-care (01) ==
PROVIDERS: Emergency Provider Emergency Medicine; PCP Internal Medicine
DX: S52.572A Other intraarticular fracture of lower end of left radius, initial encounter for closed fracture (principal); W07.XXXA Fall from chair, initial encounter; Z79.01 Long term (current) use of anticoagulants
CPT/HCPCS: 29125; 73110; 99283

== ENCOUNTER 2024-04-03 09:54 | Outpatient (OUT) | payer MEDICARE, SELFPAY ==
--- NOTE | 2024-04-03 | XR_ITS ---
The [address] [address] Patient Name: MADAN COONEY MRN: [id number] date: 1950 Sex: F Assigned Patient Location: Current Patient Location: Accession/Order Number: [id number] Exam Date: 04/03/2024 09:54 Report Date: 04/04/2024 05:44 At the request of: TIFFANIE VILLANUEVA Procedure: XR wrist LT min 3V PROCEDURE: XR wrist LT min 3V HISTORY: LEFT WRIST PAIN COMPARISON: XR wrist left 03/24/2024 FINDINGS: BONES:Stable alignment of slightly complex and likely impacted fracture of the distal radial metaphysis with intra-articular extension. 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 SOFT TISSUES:Soft tissue swelling. EFFUSION:None visible. OTHER: Negative. XR/XR wrist LT min 3V IMPRESSION: 1. Images were obtained to cast material which slightly limits evaluation. 2. Stable alignment and slight impaction of distal radius fracture. Electronically authenticated by: TIFFANIE LEON Date: 04/04/2024 05:44
--- OUTSIDE RECORDS SUMMARY | 2024-04-03 10:02 | XMS_ITS | CCD ---
Author Organization [facility] CliniSysd Care Team Providers Care Cosmetician Name Role Phone DIONY ., DR DOBBS [...] Unavailable HOY ., DR DOBBS Attending Unavailable MONTGOMERY, DR RAFIQ [employer] Unavailable LEAH SEALS [...] Broderick Solomon Unavailable TITA SHELDON Attending Unavailable TITA SHELDON Attending Unavailable PRETTY PLAZA Attending Unavailable PRETTY PLAZA Attending Unavailable KATE BRODERICK Attending Unavailable ELTAHAWY, EH Attending Unavailable ELTAHAWY, EHAB Admitting Unavailable TURNER HARDING Attending Unavailable TURNER HARDING Admitting Unavailable ELTAHAWY, EHAB Attending Unavailable [place]TAHAWY, EHAB Admitting Unavailable ELTAHAWY, EHAB Referring Unavailable TURNER HARDING Attending Unavailable TURNER HARDING Referring Unavailable Allergies Allergy Classification Reported Allergen(s) Allergy Type Date of Onset Reaction(s) Facility (1 source) Sulfonamides (Antibiotic) Drug allergy (disorder) 09-01-19 [facility] Repository (1 source) Sulfamethoxazole / Trimethoprim Drug Allergy NAILS TURNED PURPLE [employer] Other (1 source) Ciprofloxacin; 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: [CIPROFLOXACIN] Drug Allergy 11-24-19 [facility] Repository (1 source) levoFLOXacin; 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: [LEVOFLOXACIN] Drug Allergy 11-24-19 [facility] Repository (1 source) Sulfonamides (Antibiotic); 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: [SULFA (SULFONAMIDE ANTIBIOTICS)] Propensity to adverse reactions to drug (disorder) 12-03-19 [facility] Repository Medications Current Medications [...] atrial fibrillation] Onset: 11-05-2023 Chronic Cardiac dysrhythmias (7 sources) Palpitations; 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: [PALPITATIONS] Onset: 08-16-2022 Episodic [...] 08-25-2022 Chronic Other aftercare (1 source) 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) use of anticoagulants; 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: [HALF-WAY CURRNT USE ANTICOAGULANTS] Onset: 08-18-2022 Episodic Other aftercare (1 source) Other chcf (current) drug therapy; 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: [OTH RECYCLING COLLECTIONS DRIVER CURRENT DRUG THERAPY] Onset: 08-18-2022 Episodic Other [...] Range Facility Office Visiton 02-01-2024 Follow-up visit [id number] Sharri Cooney 1950 F Date Provider Department Center 02/01/2024 [facility] No family history on file Level of Service:00201 CO OFFICE/OUTPATIENT ESTABLISHED MOD MDM 30 MIN Normal [facility] ANEДмитрий 01-13-2024 ANES - Attestation signed by Cecilia Peter MD at 01/13/2024 8:28 AM Cecilia Peter MD, MPH, [facility], [facility], [facility] Interventional Cardiology Pager Email: [email or web address] Patient: Sharri Cooney Procedure Information Date/Time: 01/13/24 0830 Procedure: Coronary angiography; PC Approved (12/02-05/31) Location: [facility] BSA/AML COMPLIANCE OFFICER 3 / [facility] VASCULAR [facility] (Cath) Providers: Cecilia Peter MD [...] discussed with attending. Additional Equipment Requests Normal [facility] HPon 01-13-2024 HP - Attestation signed by Cecilia Peter MD [...] wishes to proceed. Cecilia Peter MD, MPH, [facility], [facility], [facility] Interventional Cardiology Pager Email: [email or web address] H&P reviewed. The patient was examined and there are no changes to the H&P. Sharri Cooney is a 73 y.o. year old with past medical history of A-fib RVR, hypertension, dyslipidemia, and mild MR presents for ischemic work up for Afib. Patient will undergo coronary angiography. [facility] Jaime 01-13-2024 ALECIANOTJosse RN educated pt on d/ c instructions. RN encouraged pt to voice any questions or concerns. Pt verbalizes no questions or concerns at this time. Pt was wheeled off of unit with all of belongings. [facility] HPon 12-14-2023 HP New order for cardia c cath [facility] Orders Onlyon 12-14-2023 Orders Only [id number] Sharri Cooney 1950 F Date Provider Department Center 12/14/2023 [facility] C[facility] No family history on file [facility] Telephoneon 12-10-2023 Telephone [id number] Reno 1950 F Date Provider Department Center 12/10/2023 BASSAM GAR [facility] No family history on file [facility] Telephoneon 12-01-2023 Telephone [id number] Reno 1950 F Date Provider Department Center 12/01/2023 [facility] CARD [facility] No family history on file Normal [facility] Orders Onlyon 11-25-2023 Orders Only [id number] Sharri Cooney 1950 F Date Provider Department Center 11/25/2023 [id number], HISTORICAL CARD [facility] No family history on file Normal [facility] HPon 11-24-2023 [facility] Electrophysiology Consult Note Reason for [...] or signs patient was recently seen in [place] ED 08/2022 for palpitations. She was found [...] alcohol infrequently, no significant caffeine intake, no uhgg-lhv-nhdbbhq decongestions Family history: Her mother of a [...] alcohol infrequently, no significant caffeine intake, no lhpa-lnu-flfztkr decongestions Family history: Her mother of a [...] on file Intimate Partner Violence: Unknown (08/26/2023) [place] Safety & Environment Fear of Current or Ex-Partner: Not on file Emotionally Abused: Not on file Physically Abused: Not on file Sexually Abused: Not on file Physically or Sexually Abused: Not on file Depression: Not on file Housing Stability: Not on file U (more content not included)... Normal [facility] NURSNOTEon 11-24-2023 NURSNOTE RN educated pt on d/ c instructions. RN encouraged pt to voice any questions or concerns. Pt verbalizes no questions or concerns at this time. Pt was walked off of unit with all of belongings. Normal [facility] Office Visiton 11-03-2023 Follow-up visit [id number] Sharri Cooney 1950 F Date Provider Department Center 11/03/2023 TURNER GAY [facility] CARD [facility] No family history on file Level of Service:72300 CO OFFICE/OUTPATIENT ESTABLISHED LOW MDM 20 MIN Reason for Visit and Comments: Follow-up [666795] Atrial Fibrillation [80] Normal [facility] 36on 10-29-2023 36 I ordered a stress test for her along with increased metoprolol and Kcl. Also started mag oxide. Please send stress to [facility]. Please call patient and schedule her an appt with Dr. Harding at his soonest available. He said if she really wants to get in [place] with him he can see her at [place] next week while he is on Med . Thanks! Normal [facility] Telephoneon 10-29-2023 Telephone [id number] Linda Cooneyjosse Mendoza 1950 F Date Provider Department Center 10/29/2023 PRETTY GALLAGHER Faby . No family history on file [facility] Office Visiton 10-28-2023 Follow-up visit [id number] Linda Cooneyjosse Mendoza 1950 F Date Provider Department Center 10/28/2023 PRETTY GALLAGHER DALE [facility] No family history on file Level of Service:93537 CO OFFICE/OUTPATIENT ESTABLISHED MOD MDM 30 MIN Reason for Visit and Comments: Atrial Fibrillation [80] Palpitations [866432] [facility] Office Visiton 06-04-2023 Follow-up visit [id number] Sharri Cooney Reji 1950 F Date Provider Department Center 06/04/2023 KATE WHITTEN DALE [place] [facility] No family history on file Level of Service:10954 CO OFFICE/OUTPATIENT ESTABLISHED MOD MDM 30-39 MIN [facility] COVID/FLU RT-PCRon 3 SARS-CoV-2 (COVID-19) RNA VERONICA+probe Ql (Unsp spec) Positive [employer] Other COVID/FLU RT-PCR Negative [employer] Other SGOTon 10-23-2022 AST [Catalytic activity/Vol] 45 U/L Critically high 15-37 [facility] Comment on above: Performed By: #### A LT, AST #### [facility] [address] [place] [address] Dr. Fred Jackson SGPTon 10-23-2022 ALT [Catalytic activity/Vol] 48 U/L Normal 14-59 [facility] Comment on above: Performed By: #### A LT, AST #### [facility] [address] [place] [address] Dr. Fred Jackson SGOTon 09-10-2022 AST [Catalytic activity/Vol] 40 U/L Critically high 15-37 [facility] Comment on above: Performed By: #### A LT, AST #### [facility] [address] [place] [address] Dr. Fred Jackson SGPTon 09-10-2022 ALT [Catalytic activity/Vol] 52 U/L Normal 14-59 [facility] Comment on above: Performed By: #### A LT, AST #### [facility] [address] [place] [address] Dr. Fred Jackson XR DEXA BONE DENSITYon 08-25 XR DEXA BONE DENSITY DEXA Bone Density Study CLINICAL: Evaluate bone mineral density. Postmenopausal COMPARISON: FINDINGS: The bone density study was assessed by dual-energy x-ray absorptiometry with the [employer] scanner. The test results are expressed in [...] RAFIQ SEALS Date: 2022-08-25 09:50 Normal [facility] BNPon 08-16-2022 Natriuretic peptide B (Bld) [Mass/Vol] 87.0 pg/mL Normal <=900.0 [facility] Comment on above: Performed By: #### T SH, CMP, BNP, CMADM ####[facility] [address] [place] [id number] Jackson CARDIAC JASSI ADMITon 023 CK [Catalytic activity/Vol] 152 U/L Normal 26-192 [facility] Comment on above: Performed By: #### T SH, CMP, BNP, CMADM ####[facility] [address] [place] [id number]. Fred Jackson CK.MB [Mass/Vol] 2.96 ng/mL Normal <=3.60 [facility] Comment on above: Performed By: #### T SH, CMP, BNP, CMADM ####[facility] [address] [place] [address]DrCaroline Jackson HSTROP 6.1 pg/mL Normal 4.0-51.3 [facility] Comment on above: Result Comment: CUT- OFF POINTS HAVE BEEN ESTABLISHED BASED ON THE FOURTH UNIVERSAL DEFINITIONS OF MYOCARDIAL INFARCTION. THE UPPER REFERENCE LIMIT (URL) OF TROPONIN, DEFINED THE 99TH PERCENTILE OF cTnI DISTRIBUTION IN A REFERENCE POPULATION, HAS BEEN CONFIRMED THE DECISION THRESHOLD FOR [place] DIAGNOSIS. Performed By: #### T SH, CMP, BNP, CMADM ####[facility] [address] [place] [address]DrCaroline Jackson ANGELI 80 ng/mL Normal 9-82 [facility] Comment on above: Performed By: #### T SH, CMP, BNP, CMADM ####[facility] [address] [place] [address]DrCaroline Jackson CBC AUTO DIFFon 08-16-2022 BASO # 0.1 103/ul Normal 0.0-0.1 [facility] Comment on above: Performed By: #### C BC #### [facility] [address] [address] [address] Fred Jackson Basophils/100 WBC (Bld) 1.4 % Normal 0.2-2.0 [facility] Comment on above: Performed By: #### C BC #### [facility] [address] [address] [address] Fred Jackson EO # 0.3 103/ul Normal 0.0-0.7 [facility] Comment on above: Performed By: #### C BC #### [facility] [address] [address] [address] Fred Jackson Eosinophils/100 WBC (Bld) 3.1 % Normal 0.9-7.0 [facility] Comment on above: Performed By: #### C BC #### [facility] [address] [place] [address] Dr. Fred Jackson Erythrocyte distribution width (RBC) [Ratio] 12.0 % Normal 11.0-15.0 [facility] Comment on above: Performed By: #### C BC #### [facility] [address] [place] [address] Dr. Fred Jackson Hematocrit (Bld) [Volume fraction] 40.5 % Normal 36.0-48.0 [facility] Comment on above: Performed By: #### C BC #### [facility] [address] [place] [address] Dr. Fred Jackson Hemoglobin (Bld) [Mass/Vol] 13.8 g/dL Normal 12.0-16.0 [facility] Comment on above: Performed By: #### C BC #### [facility] [address] [place] [address] Dr. Fred Jackson IG # 0.06 10e3/ul Critically high 0.00-0.03 [facility] Comment on above: Performed By: #### C BC #### [facility] [address] [place] [address] Dr. Fred Jackson IG % 0.6 % Critically high 0.0-0.5 [facility] Comment on above: Performed By: #### C BC #### [facility] [address] [place] [address] Dr. Fred Jackson LYMPH # 3.8 103/ul Normal 1.2-3.8 [facility] Comment on above: Performed By: #### C BC #### [facility] [address] [place] [address] Dr. Fred Jackson Lymphocytes/100 WBC (Bld) 36.6 % Normal 20.5-60.0 [facility] Comment on above: Performed By: #### C BC #### [facility] [address] [place] [address] Dr. Fred Jackson MANUAL DIFF REQ NO Normal [facility] Comment on above: Performed By: #### C BC #### [facility] [address] [place] [address] Dr. Fred Jackson MCH (RBC) [Entitic mass] 31.2 pg Normal 26.7-34.0 [facility] Comment on above: Performed By: #### C BC #### [facility] [address] [place] [address] Dr. Fred Jackson MCHC (RBC) [Mass/Vol] 34.1 g/dL Normal 29.9-35.2 [facility] Comment on above: Performed By: #### C BC #### [facility] [address] [place] [address] Dr. Fred Jackson MCV (RBC) [Entitic vol] 91.6 fL Normal 81.0-99.0 [facility] Comment on above: Performed By: #### C BC #### [facility] [address] [place] [address] Dr. Fred Jackson MONO # 1.2 103/ul Critically high 0.3-0.8 [facility] Comment on above: Performed By: #### C BC #### [facility] [address] [place] [address] Dr. Fred Jackson Monocytes/100 WBC (Bld) 11.3 % Normal 1.7-12.0 [facility] Comment on above: Performed By: #### C BC #### [facility] [address] [place] [address] Dr. Fred Jackson NEUT # 4.9 103/ul Normal 1.4-6.5 [facility] Comment on above: Performed By: #### C BC #### [facility] [address] [place] [address] Dr. Fred Jackson Neutrophils/100 WBC (Bld) 47.0 % Normal 43.0-75.0 [facility] Comment on above: Performed By: #### C BC #### [facility] [address] [place] [address] Dr. Fred Jackson Platelet mean volume (Bld) [Entitic vol] 8.9 fL Critically low 9.5-13.5 [facility] Comment on above: Performed By: #### C BC #### [facility] [address] [address] [address] Fred Jackson PLT 404 103/ul Normal 150-450 [facility] Comment on above: Performed By: #### C BC #### [facility] [address] [address] [address] Fred Jackson RBC 4.42 106/ul Normal 4.20-5.40 [facility] Comment on above: Performed By: #### C BC #### [facility] [address] [address] [address] Fred Jackson WBC 10.3 103/ul Normal 4.0-11.0 [facility] Comment on above: Performed By: #### C BC #### [facility] [address] [address] [address] Fred Jackson PROF 14(COMP METB)on 023 Albumin [Mass/Vol] 4.3 g/dL Normal 3.4-5.0 [facility] Comment on above: Performed By: #### T SH, CMP, BNP, CMADM ####[facility] [address] [place] [address]DrCaroline Jackson Albumin/Globulin [Mass ratio] 1.2 {ratio} Normal [facility] Comment on above: Performed By: #### T SH, CMP, BNP, CMADM ####[facility] [address] [place] [address]DrCaroline Jackson ALP [Catalytic activity/Vol] 96 U/L Normal 46-116 [facility] Comment on above: Performed By: #### T SH, CMP, BNP, CMADM ####[facility] [address] [place] [id number] Jackson ALT [Catalytic activity/Vol] 34 U/L Normal 14-59 [facility] Comment on above: Performed By: #### T SH, CMP, BNP, CMADM ####[facility] [address] [place] [address]DrCaroline Jackson Anion gap [Moles/Vol] 16.6 mmol/L Normal [facility] Comment on above: Performed By: #### T SH, CMP, BNP, CMADM ####[facility] [address] [place] [address]Dr. Fred Jackson AST [Catalytic activity/Vol] 39 U/L Critically high 15-37 [facility] Comment on above: Performed By: #### T SH, CMP, BNP, CMADM ####[facility] [address] [place] [address]Dr. Fred Jackson Bilirubin [Mass/Vol] 0.8 mg/dL Normal 0.2-1.0 [facility] Comment on above: Performed By: #### T SH, CMP, BNP, CMADM ####[facility] [address] [place] [address]Dr. Fred Jackson Calcium [Mass/Vol] 10.1 mg/dL Normal 8.5-10.1 [facility] Comment on above: Performed By: #### T SH, CMP, BNP, CMADM ####[facility] [address] [place] [address]Dr. Fred Jackson Chloride [Moles/Vol] 91 mmol/L Critically low 98-107 [facility] Comment on above: Performed By: #### T SH, CMP, BNP, CMADM ####[facility] [address] [place] [address]Dr. Fred Jackson CO2 [Moles/Vol] 25.5 mmol/L Normal 21.0-32.0 [facility] Comment on above: Performed By: #### T SH, CMP, BNP, CMADM ####[facility] [address] [place] [address]Dr. Fred Jackson Creatinine [Mass/Vol] 0.95 mg/dL Normal 0.55-1.02 [facility] Comment on above: Performed By: #### T SH, CMP, BNP, CMADM ####[facility] [address] [place] [address]Dr. Fred Jackson EGFR-AF PUERTO RICAN >60 Normal >=60 [facility] Comment on above: Performed By: #### T SH, CMP, BNP, CMADM ####[facility] [address] [place] [address]Dr. Fred Jackson EGFR-NON AF PUERTO RICAN 58 mL/min/1.73m2 Critically low >=60 [facility] Comment on above: Performed By: #### T SH, CMP, BNP, CMADM ####[facility] [address] [place] [address]Dr. Fred Jackson Globulin (S) [Mass/Vol] 3.6 g/dL Normal [facility] Comment on above: Performed By: #### T SH, CMP, BNP, CMADM ####[facility] [address] [place] [address]Dr. Fred Jackson Glucose [Mass/Vol] 116 mg/dL Critically high 74-106 [facility] Comment on above: Performed By: #### T SH, CMP, BNP, CMADM ####[facility] [address] [place] [address]Dr. Fred Jackson Potassium [Moles/Vol] 3.1 mmol/L Critically low 3.5-5.1 [facility] Comment on above: Performed By: #### T SH, CMP, BNP, CMADM ####[facility] [address] [place] [address]Dr. Fred Jackson Protein [Mass/Vol] 7.9 g/dL Normal 6.4-8.2 [facility] Comment on above: Performed By: #### T SH, CMP, BNP, CMADM ####[facility] [address] [place] [address]Dr. Fred Jackson Sodium [Moles/Vol] 130 mmol/L Critically low 136-145 [facility] Comment on above: Performed By: #### T SH, CMP, BNP, CMADM ####[facility] [address] [place] [address]Dr. Fred Jackson Urea nitrogen [Mass/Vol] 17.0 mg/dL Normal 7.0-18.0 [facility] Comment on above: Performed By: #### T SH, CMP, BNP, CMADM ####[facility] [address] [place] [address]Dr. Fred Jackson Urea nitrogen/Creatini ne [Mass ratio] 17.9 mg/mg Normal [facility] Comment on above: Performed By: #### T SH, CMP, BNP, CMADM ####[facility] [address] [place] [address]Dr. Fred Jackson PROTIMEon 08-16-2022 INR Coag (PPP) [Relative time] 1.01 {INR} Normal [facility] Comment on above: Performed By: #### P TT, PT ####[facility] [address] [place] [address]DrCaroline Jackson INR GUIDELINES SEE BELOW Normal [facility] Comment on above: Result Comment: DOTTY RED INR: 2.0 - 3.0 CONDITIONS NOT LISTED BELOW 2.5 - 3.5 FOR PROSTHETIC HEART VALVE REPLACEMENT 2.5 - 3.5 RECURRENT THROMBOSIS Performed By: #### P TT, PT ####[facility] [address] [place] [address]DrCaroline Jackson PT Coag (PPP) [Time] 10.7 s Normal 9.0-11.6 [facility] Comment on above: Performed By: #### P TT, PT ####[facility] [address] [place] [address]Dr. Fred Jackson PTTon 08-16-2022 aPTT Coag (Bld) [Time] 33.9 s Normal 22.3-36.2 [facility] Comment on above: Performed By: #### P TT, PT ####[facility] [address] [place], [place] [address]DrCaroline Shivandana Jackson TROPONIN, HIGH SENSITIVITYon 08-16-2022 HSTROP 15.1 pg/mL Normal 4.0-51.3 [facility] Comment on above: Result Comment: CUT- OFF POINTS HAVE BEEN ESTABLISHED BASED ON THE FOURTH UNIVERSAL DEFINITIONS OF MYOCARDIAL INFARCTION. THE UPPER REFERENCE LIMIT (URL) OF TROPONIN, DEFINED THE 99TH PERCENTILE OF cTnI DISTRIBUTION IN A REFERENCE POPULATION, HAS BEEN CONFIRMED THE DECISION THRESHOLD FOR [place] DIAGNOSIS. Performed By: #### H STROPN #### [facility] [address] [address] [address] Fred Jackson TSHon 08-16-2022 TSH 4.364 uIU/mL Critically high 0.358-3.740 [facility] Comment on above: Performed By: #### T SH, CMP, BNP, CMADM ####[facility] [address] [place], [place] [address]Eg. Fred Jackson XR CHEST 1 Von 08-16-2022 [...] DALI MYERS Date: 2022-08-16 00:02 Normal [facility] Covid-19 PCR (CVDTB)on 03-06 SARS-CoV-2 (COVID-19) RNA VERONICA+probe Ql (Unsp spec) Detected Critically abnormal NOT DETECTED [facility] Comment on above: Result Comment: This test is not yet approved or cleared by the [place] FDA. When there are no FDA-approved or cleared tests available, and other criteria are met, FDA can make tests available under an emergency access mechanism called an Emergency Use Authorization (EUA). The EUA for this test is supported by the [place] of Health and Human Service's (HHS's) declaration [...] be used). Performed By: #### C VDTBH ####[id number] [place], [place] [address]Xe. Fred Jackson US CAROTID ART BILon 022 [...] by: TIFFANIE LEON Date: 2022-03-12 14:51 Normal [facility] MAMM SCREEN 3D JASMEET CADon 02-09-2022 MG MAMM SCREEN 3D JASMEET CAD Patient: SHARRI COONEY Exam Date: 02/09/2022 : 1950 Gender:F Ordering : DR RINKU PETERSON . Admission #: [id number] Family : Order #: [id number] CLICK HERE TO VIEW EXAM RADIOLOGY REPORT [...] prostate cancer at age 60. LOCATION: [facility] BREAST COMPOSITION: Heterogeneously dense,which may obscure [...] Zuñiga MD on 02/09/2022 at 09:50 Normal [facility] Coding Summary.on 03-12-2021 Coding Summary. CD:[id number] G h0bWw+PGhlYWQ+JT0BCTW hR13woLRpxE6ST3gVJD7A BRTSCKAYEA6DLP0tlNH2G BfkZ9MbdvYu FukduMIeJC01HHx9LSC5t ZsgAWgooT7clEPhS1b9Oz DkQX84cG35VDgbGUMtPiS 3LjZpbjsgbWFy R0xfWyIhtFZdNzl+PHRhY mxlIHdpZHRoPScxMDAlJy QkgGdjFU8wJk1qFPMeMUL vbGxhcHNlOiBj g4ewJXBlIZurDF8adJrqL 9EfoBL2KUQkh5c1He55jR I+RWKiHWH5qPrjMCgah35 0LmUbn1bgLLV5 aEPfJRmbALG7U92bm9I4D JEuNIKkNCJ7zYU1uQ7jqU rtqagnR5YxdOSfPsV2WQU 2eNHdpR1gxBvk hevvtC0uYsc+S59IDO2TT KXTTI5LWju2X5ZvQjodpW I+EK08YNUkGG78xFBagYB fn7dzeLl9RxXi DAAuHOR1gNbuOKwoy2IgK ODbG35nxVStz9L4BTWyuC dgmWRaXtYmmMU2zQ1iGFk cfivsy0pouquk Eimko1cluj71tC48O97eE QokZZNlPVA9SRWxPPHgpY ytxj2kbG9dLx5+MClxz6s fx5rnfTj8SkEw BMOyosCkeMaxJAY8d1OzZ b54C8IcnYcmc1NfOwa0mf 36qKNti8C5yGB1IOlwJTD qcE5aZOrbLiO8 MLGvPuXzpC15rGJfVGetE y8bzTdywVitKZ9sEQVxzu wlDFFlrR0wEOOnqGXldRs jVA2wQDEnfzka w676EpDvSCN7TMCzoQIqZ 6YdcQ3gBdZlKAXuJQVrH3 CviNIeSYunQ387JJyfOaT 4RXDoqlCjL8Oc UBEhuJigIaK7x2V8Is3Uy 0PucqvwPDG2PTxhEAC2Id Z1CvNkNyZ9M4WvLkm2OKL abAbhBV3gL1Fw XCCkzqudjqcurYE8WCUnA CBjeA66iLUcOVwkVv4up2 S5t323WFRlCHVujD86Pm3 udDogMTBwdCBU uO5jizeqa9mnazfzJmLaP HTiSJr9IMe2ZZOzlFooEd EmHTP3CqH9WHP3tXJqkS3 rjZxvadatvA0f Oyc+V08olX1sOCO8BAR4f rwkDCBhfoDnLJ69WT17U9 RyPjwvdGFibGU+PGRpdiB xfHfqZN7wLpLk j0aww7SoJVqqX3GaVNHsR XceZhw4MIJaGMR3vCQ9lX 6fUPCeCZbdt3T9bZG2B4W esxYzkh1lm5zb OTNhXPydZ31udUFti1Y8F ROlrXB0DEXkjTvgQsDhpM 93Oyc+XPHrtFfgx5CcNly fz2wtj4gutLt4 ScFeIHZdfsLvzLqwYMA3r 3UbBk66V65gYNyuAKKkWY PvRQEzFXSqqDzfbi6erZ5 wIi8+PGNvbCB3 tSO1bQ6rIGRnHkW8NSgvA 240RcWqeTXgGefdf6hin3 tmzIm4JdYuSJJdbcHcjXw yUQZ9m2PhFq54 T67aSSurPYOsSUVxSMIlZ YAztIhrfc2xlM7vWr6+PC 9qz2rlkh75cC28fXC+PHR cHXU4jZmpHSvi WYKrtX2lOXyoHeT6EIGrN aRbtP68kDErTQexFg4bwH yxdNsiBC2wXQXcxeqmj92 1JwXzl2cwBVCi jWRnYIlbAPS0F48zo8N2X ZMmGPUkKWE9nDM0tK9isG lnbjogbGVmdDsgdmVydGl oHQywIRlaY471 IHRvcDsnPlBhdGllbnQgT pFsZNc7E5CpNoj0AUNzpY rkZU9zdUWzOMvwLf9iqGo geCeuCV1wACVj lmyjf690EqNnl3jpKTQgc DBaZJfcSGU6Z20gx7L9NH JjAZUdWYW1hKU8zQ5jpGt nbjogbGVmdDsg kzTmaKjvVHjyXPhfT917M HRvcDsnPkJpcnRoIERhdG N5IK21HF60dOEkg3D3rEV 4E5JuUSJhdyxn qnunoZY6MPHoQSXncI93P t1wyVmxXi6rAOIzWAT5NX QptXLhU6BwfQ7vQqEzBOE fBGGyE1KyvRXh TBlbO559HMigCtF5UKPtd yNjI0PrPSXqfVmuKgV5y4 F9Sp4UV6F8CJ32BX36wJE zm9T3kQY6J6Wl GXUvwxteadotaGG3KGDgG JWrtP27Jv7gfBvbJm2rHJ IcLDA9ECDrbPTzD9VlsQ8 yOiAjMDAwMDAw O0TuuJCsYZbaU297KUttW pX9KTPbmhNkR1IbWATjrF shVoI7j7O6Nx6TLCu6UL5 3BR68iCMrc4G1 iAI1D3AzBCGndjscpuvrs DY5KFLbVFIwcV80Eb8toP uaEp0eOBTrEDH3ZATzaXW jV3EqwD6qHySf HZLsRTZjJ2YwkAIsTVigD 760KIsyGhX2OTSchfQiB7 MqRJIueYmiGoL9f9R8Pp7 KOPJaAS19PRO7 eFF1QP45VO95U3VfHfxta GFibGU+PHRhYmxlIHdpZH RoPScxMDAlJyBzdHlsZT0 iBs5mAYKbWMNi xXgbxQHvYjUkj0fbATIeZ SreOO4ihThsV4OsjRH3OX Bsk3g2Zh75U80iQ1JusAN +EPNyvMJ2bJQ8 bT4iLePwLaX3TVmpQ434W tXggVJxTijiq9zns9gbsR u8JzS4NAZnaaKhdJccKMB 9l7EfGj24B06j IHdpZHRoPSIxNSUiIHZhb Ugwrg6cfG1cPk6+PGNvbC H1uJU8aT8gTdHjRoK2NNq eD559DuEcgRMs Lgzcm9mkx9gxdAu9YjSmO XMykxLrxHfpCQC6t3YcPl 48M3VvvUnfj2NqGsv9oo0 0nVKhv8D3iAP1 X0QdZGZmrgkauZSekYkiT W5bUPXzpsdmHEDocH9gFA RgI2l7YzMpFzB0VOoxF0Q azsA9QVAijLRt UEdmALG7F02un7M5AVRzY IRaNEG0fOM5pV1wqWyulw ogbGVmdDsgdmVydGljYWw yRZxdY683NJEr pAuqOPSmcR9mFBGklNXja YemLE5sSUUwzkqmNuNIXc ABECgvQNHCOjWEOiM3K1Z mVqh9SSQdnSxa BG1gnODgCAnrIq8jaNgnp PdmJJ4wACPdsthnNVBxwX 4ePHKgrPZasCqpOY3eWKL imxclk580HyXh PIB4ROXxwAGwO5WpsS4jT jDrKPQtJTAuD4GiwAOhQB myR177OGtfWeG4MFPcloH iJ3WuVWRkqSrm OwP9w5V1Kn7bRy1nIF2iZ VAqJQ21PC36gTQdl8H8bU M4D5PlVKNnlnwgwtltbXP 5VTFzGZObeX40 hDXyVCwbNz2li0Z9s909L DNnTTPljE12Ui5yrHppHA BavCNJfL8mvnidm5jxwzs gIzAwMDAwMDt0 PTq3OOOytWmuCcMcEEQ6I uZ1SIC1cKVbyW6eyItomx aaaN8oCsc+NjggWWVhcnM 5Z3AgZlq4QUZw cNdaKA7heUFfDDetPu1ow PljnQqrRQ7bFHGdnsfpOH SqkB9hTQLeqRDrvKmqGG7 qXZKztwppz470 MrXxXGV6KHNypXNlQ7Pxi V1fGjQuMGHaPELiH4QopK NhYRgpA847MXhoWxF2PED ljgJsX0IlPFQe fXesYgZ8g1Z3Qj1HLO4av EQ0M8RwBvp6CUYqwKurLK 4dySHlFUkdLe8erJiamLl gIU5aSLOoiauv VQJpmE4kBNJxnQIzfJkqO C3sDDUntgzbv881UbTlXS G3RRLtgIUgG4OsmL0vLgF lBFKdJOQzL1Od aJKfBLcsF404DYnfKqO6S UOzytVcP6FeURXywHiwNc K6c2W7Mo7RTLTbENUhuJW rTyX5E4RtHqcd dHI+PS79SQIdGP15eTLtf RHcq2scmVv8MzHdNCYfCV H4tEeoECaym1ImZSKnH92 dbEGvr5I1NALr uXlhmGWeQqBehNT1fS0uM Fpfzkukd6advujgPkpxm3 mfia26fA77B32iUGfcMWV oPSIzMCUiIHZh zZutee1niA7aHk6+PGNvb OO8wND1rP6mJuMiVsP6JG ulP878LgDqmZKpUxgoc3o qq3txbWs2LbTr LJYbzcUvrLurEZJ8j5WyB n32Z20eZTjzMCHiNNKrEA EmXBFojQnpwr4vgM0oFs5 +AV4fp8ijgm60 rX25iDX+ZIElJOW3lRlkA UfiNOVjeX3sGWzwRbH2TC MhKwBpmC72jJFeFTviDk4 wkPgcdEbgII3v VUQrfrjhd320TkFbd3uxY VDbnQRpGTrlWLD0U88kl1 H5ATPjBKXcGLH3xFG3vZ7 hbGlnbjogbGVm dDsgdmVydGljYWwtYWxpZ 339IKBxeTerWsPukYRuH1 bykeJEYF7lLdchdUX+PHR cBRJ8jHksOPyj GRHshW9pJHJwP3m1CdFgA wK9LFvnT4MuhnL6CKVreA HkDWPzsEKEfK6xnbenc5y vcjogIzAwMDAw GAh9LFv0ZOEvbTkcZoTvO OX3MzQ6KEE0fXPccP1bfK erxetuiR1zTof+RklOOjw vdGQ+PHRkIHN0 xVmuARxnULGaaE0eJRPsW 0s0BeDfBjZ6MEvpI6Mppl G9EVWrhLZvCRQitQDNsP2 orntyi2tjiwiy YrLtABGkCPu1QAf9KKWts HjtCjDcHVQ9YsW4CTZ6vO EmqE0ptOlnyfwdwZ5hGfe +TVJOOjwvdGQ+ NZRyFDB2mRleVAwcDFWil X1cJOHiG1z6MaReTzA6JP woO1BkpkQ2OLXvcUKdTTM ecMIPvW3cdics q6vavwhjVzYfTYMcKHu1U Gs3LHZfsAwwYxDoGFB9Nv V9TRF0xDOpdY8ciPbtpua ekK5wFlx+UGF5 SVR0LJ22SK45C6WdQimlj GFibGU+PHRhYmxlIHdpZH RoPScxMDAlJyBzdHlsZT0 uZo1fVFZvWEOg bGxh (more content not included)... [facility] Physician Orderon 02-19-2021 Physician Order [id number]# 1.00CD:127 [facility] Vital Signs Date Time Vital Sign Value Performing Clinician Facility 04-22-2023 12:20-0400 Body height 153.67 cm Broderick Solomon Other [facility] 04-22-2023 12:20-0400 Body mass index (BMI) [Ratio] 24.58 kg/m2 Broder[facility] Solomon Other [facility] Other 04-22-2023 12:20-0400 Body temperature 98.3 [degF] Broder[facility] Solomon Other [facility] Other 04-22-2023 12:20-0400 Body weight 58.06 kg Broderick Solomon Other [facility] Other 04-22-2023 12:20-0400 Respiratory rate 18 /min Broderick Solomon Other [facility] Other 04-22-2023 12:20-0400 SaO2% (BldA) [Mass fraction] 96 % Broderick Solomon Other [facility] Other Encounters Encounter Date Encounter Type Care Provider Facility Start: 03-31-2024 ambulatory TURNER HARDING [facility] Start: 03-08-2024 End: 03-08-2024 ambulatory TITA SHELDON Not Available Start: 02-01-2024 End: 02-01-2024 ambulatory [facility] Start: 01-13-2024 End: 01-13-2024 ambulatory [facility] Start: 12-10-2023 End: 12-10-2023 ambulatory [facility] Start: 12-06-2023 End: 12-06-2023 ambulatory TITA SHELDON Not Available Start: 11-24-2023 End: 11-24-2023 ambulatory [facility] Start: 11-03-2023 ambulatory [facility] Start: 10-28-2023 End: 10-28-2023 ambulatory [facility] Start: 06-04-2023 End: 06-04-2023 ambulatory KATE [facility] Start: 04-22-2023 End: 04-22-2023 ambulatory Broderick Solomon Other [facility] Other Start: 04-22-2023 Office outpatient vi sit [...] Immunization Date Immunization Notes Care Provider Fa cili 12-19-2016 tetanus toxoid, reduced diphtheria toxoid, and acellular pertussis vaccine, adsorbed Broderick Solomon Other [facility] Other Payers Date Payer Category Payer Medicare [id number] 1950 Unknown [id number] 2.16.84 [id number] 1950 Unknown [id number] 2.16.84 [id number] 1950 Unknown [id number] 2.16.84 [id number] 1950 Unknown [id number] 2.16.84 [id number] 1950 Unknown [id number] 2.16.84 [id number] 1950 Unknown [id number] 2.16.84 [id number] 1950 Unknown [id number] 2.16.84 [id number] 1950 Unknown [id number] 2.16.84 [id number] 1950 Unknown [id number] 2.16.84 [id number] Social History Date Type Detail Facility Unknown if ever smoked [facility] Other Sex Assigned At Sex Assigned At Bir th [facility] Other Clinical Notes 04-22-2023 to 02-01-2024 Note [...] or signs patient was recently seen in [place] [facility] 08/2022 for palpitations. She was found [...] palpitations, lightness, dizziness, fatigue 08/2022 ECG by [place] [facility]- appears to be sinus tach with [...] alcohol infrequently, no significant caffeine intake, no cetg-klp-latysfw decongestions Family history: Her mother of a [...] alcohol infrequently, no significant caffeine intake, no oqpr-ljy-wndfldo decongestions Family history: Her mother of a [...] Not on file (more content not included)... [facility] 02-01-2024 Note Patient here for fol low up heart cath with Dr. Peter on 01/13/2024. Says she's been feeling good. Denies chest pain, SOB, palpitations, lightheadedness/syncope, and bleeding on Eliquis. BP's from home are low at times. Review of Systems All other systems reviewed and are negative. [facility] 01-13-2024 Note Cardiovascular Labor [...] left radial artery was obtained. A 6 [place] glide sheath was inserted without difficulty. Difficulty [...] is angiographically nonobstructive. INDICATIONS: Abnormal stress test [facility] 12-14-2023 Note [facility] This report has been cancelled. [facility] 12-01-2023 Note Error [facility] 11-25-2023 Note FYI - I made patient aware that we will proceed with coronary angiogram. I placed the orders but EPIC is being EPIC and won't let me close the encounter so working with IT on this. Thx [facility] 11-25-2023 Note EKG portion was posi tive for inferior ischemia. Nuc imaging was negative for ischemia. Her sx's are dyspnea. We are looking to start flecanide for her for her a.fib. Should we proceed with cath or coronary CTA? Thanks! [facility] 11-25-2023 Note Do we have the exerc ise portion results? [facility] 11-24-2023 Note LOOP IMPLANT PROCEDU RE NOTE DATE OF PROCEDURE: 11/24/23 PERFORMING PHYSICIAN: Dr. Turner Harding SHOP TECHNICIAN: NA INDICATIONS FOR PROCEDURE: 1. SVT/AF surveillance [...] the sternum on the left using the [employer] tool. The loop recorder was then [...] the incision. Turner Harding MD Cardiac Electrophysiology. [facility] 11-03-2023 Note [place] Electrophysiology Consult Note Reason for visit: 6 [...] or signs patient was recently seen in [place] [facility] 08/2022 for palpitations. She was found [...] palpitations, lightness, dizziness, fatigue 08/2022 ECG by [place] [facility]- appears to be sinus tach with [...] alcohol infrequently, no significant caffeine intake, no stvo-hcd-ftkowwe decongestions Family history: Her mother of a [...] alcohol infrequently, no significant caffeine intake, no ajmr-nfx-ojppvwj decongestions Family history: Her mother of a [...] on file Intimate Partner Violence: Unknown (08/26/2023) [place] Safety & Environment Fear of Current or Ex-Partner: Not on file Emotionally Abused: Not on file Physically Abused: Not on file Sexually Abused: Not on file Physically or Sexually Abused: Not on file Depression: Not on file Housing Stability: Not on file U (more content not included)... [facility] 10-28-2023 Note [place] Electrophysiology [...] or signs patient was recently seen in [place] [facility] 08/2022 for palpitations. She was found [...] palpitations, lightness, dizziness, fatigue 08/2022 ECG by [place] [facility]- appears to be sinus tach with [...] alcohol infrequently, no significant caffeine intake, no azmj-zdr-jgbwkog decongestions Family history: Her mother of a [...] alcohol infrequently, no significant caffeine intake, no snkc-zbf-xlskhem decongestions Family history: Her mother of a [...] Intimate Partner Violence (more content not included)... [facility] 10-28-2023 Note Patient here for [facility] for afib. Says she recently got [...] All other systems reviewed and are negative. [facility] 06-04-2023 Note [place] Electrophysiology Consult Note Reason for visit: 6 [...] or signs patient was recently seen in [place] [facility] 08/2022 for palpitations. She was found [...] palpitations, lightness, dizziness, fatigue 08/2022 ECG by [place] [facility]- appears to be sinus tach with [...] alcohol infrequently, no significant caffeine intake, no vscv-meo-odwjtew decongestions Family history: Her mother of a [...] alcohol infrequently, no significant caffeine intake, no ohkj-zcy-pckiung decongestions Family history: Her mother of a [...] (Eliquis) 5 m (more content not included)... [facility] 06-04-2023 Note Patient here [...] All other systems reviewed and are negative. [facility] 04-22-2023 Evaluation note Encounter [...] see your pcp. Take tylenol as needed. [facility] Other History general Narrative - Reported* Type Description Date Medical History HTN Medical History HYPERLIPIDEMIA Medical History SHINGLES Medical History GUILLAIN-BARRE SYNDROME Medical History Afib Surgical History TUBALIGATION Surgical History EYE SURGERY Surgical History MACULAR HOLE Surgical History LUMP REMOVED FROM LEFT BREAST Surgical History bunionectomy Hospitalization History 3 CHILD BIRTHS Hospitalization History GUILLAIN-BARRE SYNDROME [facility] Other Summary Purpose Family History No Family History Records FoundNo Family History Records FoundNo Family History Records FoundNo Family History Records Found Advance Directives No Advanced Directives Records FoundNo Advanced Directives Records FoundNo Advanced Directives Records FoundNo Advanced Directives Records Found Additional Source Comments INFORMATION SOURCE (unrecogn ized section and content) DATE CREATED AUTHOR 03/13/2021 [place] [facility] DATE CREATED AUTHOR AUTHOR'S ORGANIZ ATION 10/30/2022 [facility] [place] [facility] DATE CREATED AUTHOR AUTHOR'S ORGANIZ ATION 03/09/[address] [facility] EPIC DATE CREATED AUTHOR AUTHOR'S ORGANIZ ATION 04/02/2024 [facility] REASON FOR VISIT (unrecogniz ed section [...] BE BASED ON THE PRIMARY CLINICAL RECORDS. [employer] provides no warranty or guarantee of the accuracy or completeness of information in this document.
== END 2024-04-03 09:55 | disposition home or self-care (01) ==
LOC: EC 09:54
PROVIDERS: PCP Internal Medicine; Visit Provider Orthopaedic Surgery
DX: S52.592D Other fractures of lower end of left radius, subsequent encounter for closed fracture with routine healing (principal)
CPT/HCPCS: 73110

== ENCOUNTER 2024-04-10 07:28 | Outpatient (OUT) | payer MEDICARE, SELFPAY ==
--- NOTE | 2024-04-10 | XR_ITS ---
The [address] [address] Patient Name: MADAN COONEY MRN: [id number] date: 1950 Sex: F Assigned Patient Location: Current Patient Location: Accession/Order Number: [id number] Exam Date: 04/10/2024 07:35 Report Date: 04/10/2024 13:58 At the request of: TIFFANIE VILLANUEVA Procedure: XR wrist LT min 3V PROCEDURE: XR wrist LT min 3V COMPARISON: 04/03/2024 HISTORY: LEFT WRIST PAIN FINDINGS: BONES:Stable healing complex intra-articular distal radius fracture with interval increase in sclerosis. Moderate degenerative changes with joint space narrowing most significant along the medial carpus SOFT TISSUES:Negative. No visible soft tissue swelling. EFFUSION:None visible. OTHER: Bone details obscured by a fiberglass cast XR/XR wrist LT min 3V IMPRESSION: Stable healing complex intra-articular distal radius fracture Electronically authenticated by: RAFIQ HAMMOND Date: 04/10/2024 13:58
--- OUTSIDE RECORDS SUMMARY | 2024-04-10 07:35 | XMS_ITS | CCD ---
Author Organization [facility] Care Team Providers Care Strings Teacher Name Role Phone DIONY ., DR DOBBS [...] Unavailable HOY ., DR DOBBS Attending Unavailable [place], DR RAFIQ [employer] Unavailable LEAH SEALS [...] Sulfonamides (Antibiotic) Drug allergy (disorder) 09-01-19 [facility] Repository (1 source) Sulfamethoxazole / Trimethoprim Drug Allergy NAILS TURNED PURPLE [employer] Other (1 source) Ciprofloxacin; 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: [CIPROFLOXACIN] Drug Allergy 11-24-19 [facility] Repository (1 source) levoFLOXacin; 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: [LEVOFLOXACIN] Drug Allergy 11-24-19 [facility] Repository (1 source) Sulfonamides (Antibiotic); 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: [SULFA (SULFONAMIDE ANTIBIOTICS)] Propensity to adverse reactions to drug (disorder) 12-03-19 [facility] Repository Medications Current Medications Medication Drug Class(es) [...] Onset: 08-25-2022 Chronic Other aftercare (1 source) meterman (current) use of anticoagulants; 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: [FILTER BED PLACER CURRNT USE ANTICOAGULANTS] Onset: 08-18-2022 Episodic Other aftercare (1 source) Other terminal superintendent (current) drug therapy; 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: [OTH FILTER BED PLACER CURRENT DRUG THERAPY] Onset: 08-18-2022 Episodic Other [...] Range Facility Office Visiton 02-01-2024 Follow-up visit [id number] Sharri Cooney 1950 F Date Provider Department Center 02/01/2024 [facility] No family history on file Level of Service:94551 [place] OFFICE/OUTPATIENT ESTABLISHED MOD MDM 30 MIN Normal [facility] ANEДмитрий 01-13-2024 ANES - Attestation signed by Cecilia Peter MD at 01/13/2024 8:28 AM Cecilia Peter MD, MPH, [facility], [facility], [facility] Interventional Cardiology Pager Email: [email or web address] Patient: Sharri Cooney Procedure Information Date/Time: 01/13/24 0830 Procedure: Coronary angiography; PC Approved (12/02-05/31) Location: [facility] 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 Additional Equipment Requests Normal [facility] HPon 01-13-2024 HP - Attestation signed by [...] wishes to proceed. Cecilia Peter MD, MPH, [facility], [facility], [facility] Interventional Cardiology Pager Email: [email or web address] H&P reviewed. The patient was examined and there are no changes to the H&P. Sharri Cooney is a 73 y.o. year old with past medical history of A-fib RVR, hypertension, dyslipidemia, and mild MR presents for ischemic work up for Afib. Patient will undergo coronary angiography. [facility] Jaime 01-13-2024 ALECIANOTJosse RN educated pt on d/ c instructions. RN encouraged pt to voice any questions or concerns. Pt verbalizes no questions or concerns at this time. Pt was wheeled off of unit with all of belongings. [facility] HPon 12-14-2023 HP New order for cardia c cath [facility] Orders Onlyon 12-14-2023 Orders Only [id number] Sharri Cooney 1950 F Date Provider Department Center 12/14/2023 [facility] No family history on file [facility] Telephoneon 12-10-2023 Telephone [id number] Reno 1950 F Date Provider Department Center 12/10/2023 [facility] [facility] No family history on file [facility] Telephoneon 12-01-2023 Telephone [id number] Reno 1950 F Date Provider Department Center 12/01/2023 [facility] No family history on file Normal [facility] Orders Onlyon 11-25-2023 Orders Only [id number] Sharri Cooney 1950 F Date Provider Department Center 11/25/2023 [id number], HISTORICAL CARD [facility] No family history on file Normal [facility] HPon 11-24-2023 [facility] Electrophysiology Consult Note Reason for visit: [...] or signs patient was recently seen in [place] ED 08/2022 for palpitations. She was found [...] alcohol infrequently, no significant caffeine intake, no jlya-loj-leizaqx decongestions Family history: Her mother of a [...] alcohol infrequently, no significant caffeine intake, no kulx-pqn-kcwpmpt decongestions Family history: Her mother of a [...] on file Intimate Partner Violence: Unknown (08/26/2023) [place] Safety & Environment Fear of Current or Ex-Partner: Not on file Emotionally Abused: Not on file Physically Abused: Not on file Sexually Abused: Not on file Physically or Sexually Abused: Not on file Depression: Not on file Housing Stability: Not on file U (more content not included)... Normal [facility] NURSNOTEon 11-24-2023 NURSNOTE RN educated pt on d/ c instructions. RN encouraged pt to voice any questions or concerns. Pt verbalizes no questions or concerns at this time. Pt was walked off of unit with all of belongings. Normal [facility] Office Visiton 11-03-2023 Follow-up visit [id number] Sharri Cooney 1950 F Date Provider Department Center 11/03/2023 [facility] [facility] CARD [facility] No family history on file Level of Service:19959 [place] OFFICE/OUTPATIENT ESTABLISHED LOW MDM 20 MIN Reason for Visit and Comments: Follow-up [571375] Atrial Fibrillation [80] Normal [facility] 36on 10-29-2023 36 I ordered a stress test for her along with increased metoprolol and Kcl. Also started mag oxide. [facility] Please call patient and schedule her an appt with Dr. Harding at his soonest available. He said if she really wants to get in [place] with him he can see her at [place] next week while he is on Med . Thanks! Normal [facility] Telephoneon 10-29-2023 Telephone [id number] Linda Cooneyjosse Mendoza 1950 F Date Provider Department Center 10/29/2023 PRETTY GALLAGHER Faby . No family history on file [facility] Office Visiton 10-28-2023 Follow-up visit [id number] Linda Cooneyjosse Mendoza 1950 F Date Provider Department Center 10/28/2023 PRETTY GALLAGHER DALE [facility] No family history on file Level of Service:50848 [place] OFFICE/OUTPATIENT ESTABLISHED MOD MDM 30 MIN Reason for Visit and Comments: Atrial Fibrillation [80] Palpitations [296592] [facility] Office Visiton 06-04-2023 Follow-up visit [id number] Sharri Cooney Reji 1950 F Date Provider Department Center 06/04/2023 KTAE WHITT[place] DALE [facility] No family history on file Level of Service:95898 [place] OFFICE/OUTPATIENT ESTABLISHED MOD MDM 30-39 MIN [facility] COVID/FLU RT-PCRon 3 SARS-CoV-2 (COVID-19) RNA VERONICA+probe Ql (Unsp spec) Positive [employer] Other COVID/FLU RT-PCR Negative [facility] Other SGOTon 10-23-2022 AST [Catalytic activity/Vol] 45 U/L Critically high 15-37 [facility] Comment on above: Performed By: #### A LT, AST #### [facility] [address] [place] [address] Dr. Fred Jackson SGPTon 10-23-2022 ALT [Catalytic activity/Vol] 48 U/L Normal 14-59 [facility] Comment on above: Performed By: #### A LT, AST #### [facility] [address] [place] [address] Dr. Fred Jackson SGOTon 09-10-2022 AST [Catalytic activity/Vol] 40 U/L Critically high 15-37 [facility] Comment on above: Performed By: #### A LT, AST #### [facility] [address] [place] [address] Dr. Fred Jackson SGPTon 09-10-2022 ALT [Catalytic activity/Vol] 52 U/L Normal 14-59 [facility] Comment on above: Performed By: #### A LT, AST #### [facility] [address] [place] [address] Dr. Fred Jackson XR DEXA BONE DENSITYon 08-25 XR DEXA BONE DENSITY DEXA Bone Density Study CLINICAL: Evaluate bone mineral density. Postmenopausal COMPARISON: FINDINGS: The bone density study was assessed by dual-energy x-ray absorptiometry with the Compass Engine scanner. The test results are expressed in [...] RAFIQ SEALS Date: 2022-08-25 09:50 Normal [facility] BNPon 08-16-2022 Natriuretic peptide B (Bld) [Mass/Vol] 87.0 pg/mL Normal <=900.0 [facility] Comment on above: Performed By: #### T SH, CMP, BNP, CMADM ####[facility] [address] [place] [id number] Jackson CARDIAC JASSI ADMITon 023 CK [Catalytic activity/Vol] 152 U/L Normal 26-192 [facility] Comment on above: Performed By: #### T SH, CMP, BNP, CMADM ####[facility] [address] [place] [id number]. Fred Jackson CK.MB [Mass/Vol] 2.96 ng/mL Normal <=3.60 [facility] Comment on above: Performed By: #### T SH, CMP, BNP, CMADM ####[facility] [address] [place] [address]DrCaroline Jackson HSTROP 6.1 pg/mL Normal 4.0-51.3 [facility] Comment on above: Result Comment: CUT- OFF POINTS HAVE BEEN ESTABLISHED BASED ON THE FOURTH UNIVERSAL DEFINITIONS OF MYOCARDIAL INFARCTION. THE UPPER REFERENCE LIMIT (URL) OF TROPONIN, DEFINED THE 99TH PERCENTILE OF cTnI DISTRIBUTION IN A REFERENCE POPULATION, HAS BEEN CONFIRMED THE DECISION THRESHOLD FOR [place] DIAGNOSIS. Performed By: #### T SH, CMP, BNP, CMADM ####[facility] [address] [place] [address]DrCaroline Jacksno ANGELI 80 ng/mL Normal 9-82 [facility] Comment on above: Performed By: #### T SH, CMP, BNP, CMADM ####[facility] [address] [place] [address]DrCaroline Jackson CBC AUTO DIFFon 08-16-2022 BASO # 0.1 103/ul Normal 0.0-0.1 [facility] Comment on above: Performed By: #### C BC #### [facility] [address] [address] [address] Fred Jackson Basophils/100 WBC (Bld) 1.4 % Normal 0.2-2.0 [facility] Comment on above: Performed By: #### C BC #### [facility] [address] [address] [address] Fred Jackson EO # 0.3 103/ul Normal 0.0-0.7 [facility] Comment on above: Performed By: #### C BC #### [facility] [address] [address] [address] Fred Jackson Eosinophils/100 WBC (Bld) 3.1 % Normal 0.9-7.0 [facility] Comment on above: Performed By: #### C BC #### [facility] [address] [place] [address] Dr. Fred Jackson Erythrocyte distribution width (RBC) [Ratio] 12.0 % Normal 11.0-15.0 [facility] Comment on above: Performed By: #### C BC #### [facility] [address] [place] [address] Dr. Fred Jackson Hematocrit (Bld) [Volume fraction] 40.5 % Normal 36.0-48.0 [facility] Comment on above: Performed By: #### C BC #### [facility] [address] [place] [address] Dr. Fred Jackson Hemoglobin (Bld) [Mass/Vol] 13.8 g/dL Normal 12.0-16.0 [facility] Comment on above: Performed By: #### C BC #### [facility] [address] [place] [address] Dr. Fred Jackson IG # 0.06 10e3/ul Critically high 0.00-0.03 [facility] Comment on above: Performed By: #### C BC #### [facility] [address] [place] [address] Dr. Fred Jackson IG % 0.6 % Critically high 0.0-0.5 [facility] Comment on above: Performed By: #### C BC #### [facility] [address] [place] [address] Dr. Fred Jackson LYMPH # 3.8 103/ul Normal 1.2-3.8 [facility] Comment on above: Performed By: #### C BC #### [facility] [address] [place] [address] Dr. Fred Jackson Lymphocytes/100 WBC (Bld) 36.6 % Normal 20.5-60.0 [facility] Comment on above: Performed By: #### C BC #### [facility] [address] [place] [address] Dr. Fred Jackson MANUAL DIFF REQ NO Normal [facility] Comment on above: Performed By: #### C BC #### [facility] [address] [place] [address] Dr. Fred Jackson MCH (RBC) [Entitic mass] 31.2 pg Normal 26.7-34.0 [facility] Comment on above: Performed By: #### C BC #### [facility] [address] [place] [address] Dr. Fred Jackson MCHC (RBC) [Mass/Vol] 34.1 g/dL Normal 29.9-35.2 [facility] Comment on above: Performed By: #### C BC #### [facility] [address] [place] [address] Dr. Fred Jackson MCV (RBC) [Entitic vol] 91.6 fL Normal 81.0-99.0 [facility] Comment on above: Performed By: #### C BC #### [facility] [address] [place] [address] Dr. Fred Jackson MONO # 1.2 103/ul Critically high 0.3-0.8 [facility] Comment on above: Performed By: #### C BC #### [facility] [address] [place] [address] Dr. Fred Jackson Monocytes/100 WBC (Bld) 11.3 % Normal 1.7-12.0 [facility] Comment on above: Performed By: #### C BC #### [facility] [address] [place] [address] Dr. Fred Jackson NEUT # 4.9 103/ul Normal 1.4-6.5 [facility] Comment on above: Performed By: #### C BC #### [facility] [address] [place] [address] Dr. Fred Jackson Neutrophils/100 WBC (Bld) 47.0 % Normal 43.0-75.0 [facility] Comment on above: Performed By: #### C BC #### [facility] [address] [place] [address] Dr. Fred Jackson Platelet mean volume (Bld) [Entitic vol] 8.9 fL Critically low 9.5-13.5 [facility] Comment on above: Performed By: #### C BC #### [facility] [address] [address] [address] Fred Jackson PLT 404 103/ul Normal 150-450 [facility] Comment on above: Performed By: #### C BC #### [facility] [address] [address] [address] Fred Jackson RBC 4.42 106/ul Normal 4.20-5.40 [facility] Comment on above: Performed By: #### C BC #### [facility] [address] [address] [address] Fred Jackson WBC 10.3 103/ul Normal 4.0-11.0 [facility] Comment on above: Performed By: #### C BC #### [facility] [address] [address] [address] Fred Jackson PROF 14(COMP METB)on 023 Albumin [Mass/Vol] 4.3 g/dL Normal 3.4-5.0 [facility] Comment on above: Performed By: #### T SH, CMP, BNP, CMADM ####[facility] [address] [place] [address]DrCaroline Jackson Albumin/Globulin [Mass ratio] 1.2 {ratio} Normal [facility] Comment on above: Performed By: #### T SH, CMP, BNP, CMADM ####[facility] [address] [place] [address]DrCaroline Jackson ALP [Catalytic activity/Vol] 96 U/L Normal 46-116 [facility] Comment on above: Performed By: #### T SH, CMP, BNP, CMADM ####[facility] [address] [place] [id number] Jackson ALT [Catalytic activity/Vol] 34 U/L Normal 14-59 [facility] Comment on above: Performed By: #### T SH, CMP, BNP, CMADM ####[facility] [address] [place] [address]DrCaroline Jackson Anion gap [Moles/Vol] 16.6 mmol/L Normal [facility] Comment on above: Performed By: #### T SH, CMP, BNP, CMADM ####[facility] [address] [place] [address]Dr. Fred Jackson AST [Catalytic activity/Vol] 39 U/L Critically high 15-37 [facility] Comment on above: Performed By: #### T SH, CMP, BNP, CMADM ####[facility] [address] [place] [address]Dr. Fred Jackson Bilirubin [Mass/Vol] 0.8 mg/dL Normal 0.2-1.0 [facility] Comment on above: Performed By: #### T SH, CMP, BNP, CMADM ####[facility] [address] [place] [address]Dr. Fred Jackson Calcium [Mass/Vol] 10.1 mg/dL Normal 8.5-10.1 [facility] Comment on above: Performed By: #### T SH, CMP, BNP, CMADM ####[facility] [address] [place] [address]Dr. Fred Jackson Chloride [Moles/Vol] 91 mmol/L Critically low 98-107 [facility] Comment on above: Performed By: #### T SH, CMP, BNP, CMADM ####[facility] [address] [place] [address]Dr. Fred Jackson CO2 [Moles/Vol] 25.5 mmol/L Normal 21.0-32.0 [facility] Comment on above: Performed By: #### T SH, CMP, BNP, CMADM ####[facility] [address] [place] [address]Dr. Fred Jackson Creatinine [Mass/Vol] 0.95 mg/dL Normal 0.55-1.02 [facility] Comment on above: Performed By: #### T SH, CMP, BNP, CMADM ####[facility] [address] [place] [address]Dr. Fred Jackson EGFR-AF MICRONESIAN >60 Normal >=60 [facility] Comment on above: Performed By: #### T SH, CMP, BNP, CMADM ####[facility] [address] [place] [address]Dr. Fred Jackson EGFR-NON AF MICRONESIAN 58 mL/min/1.73m2 Critically low >=60 [facility] Comment on above: Performed By: #### T SH, CMP, BNP, CMADM ####[facility] [address] [place] [address]Dr. Fred Jackson Globulin (S) [Mass/Vol] 3.6 g/dL Normal [facility] Comment on above: Performed By: #### T SH, CMP, BNP, CMADM ####[facility] [address] [place] [address]Dr. Fred Jackson Glucose [Mass/Vol] 116 mg/dL Critically high 74-106 [facility] Comment on above: Performed By: #### T SH, CMP, BNP, CMADM ####[facility] [address] [place] [address]Dr. Fred Jackson Potassium [Moles/Vol] 3.1 mmol/L Critically low 3.5-5.1 [facility] Comment on above: Performed By: #### T SH, CMP, BNP, CMADM ####[facility] [address] [place] [address]Dr. Fred Jackson Protein [Mass/Vol] 7.9 g/dL Normal 6.4-8.2 [facility] Comment on above: Performed By: #### T SH, CMP, BNP, CMADM ####[facility] [address] [place] [address]Dr. Fred Jackson Sodium [Moles/Vol] 130 mmol/L Critically low 136-145 [facility] Comment on above: Performed By: #### T SH, CMP, BNP, CMADM ####[facility] [address] [place] [address]Dr. Fred Jackson Urea nitrogen [Mass/Vol] 17.0 mg/dL Normal 7.0-18.0 [facility] Comment on above: Performed By: #### T SH, CMP, BNP, CMADM ####[facility] [address] [place] [address]Dr. Fred Jackson Urea nitrogen/Creatini ne [Mass ratio] 17.9 mg/mg Normal [facility] Comment on above: Performed By: #### T SH, CMP, BNP, CMADM ####[facility] [address] [place] [address]Dr. Fred Jackson PROTIMEon 08-16-2022 INR Coag (PPP) [Relative time] 1.01 {INR} Normal [facility] Comment on above: Performed By: #### P TT, PT ####[facility] [address] [place] [address]DrCaroline Jackson INR GUIDELINES SEE BELOW Normal [facility] Comment on above: Result Comment: DOTTY RED INR: 2.0 - 3.0 CONDITIONS NOT LISTED BELOW 2.5 - 3.5 FOR PROSTHETIC HEART VALVE REPLACEMENT 2.5 - 3.5 RECURRENT THROMBOSIS Performed By: #### P TT, PT ####[facility] [address] [place] [address]DrCaroline Jackson PT Coag (PPP) [Time] 10.7 s Normal 9.0-11.6 [facility] Comment on above: Performed By: #### P TT, PT ####[facility] [address] [place] [address]Dr. Fred Jackson PTTon 08-16-2022 aPTT Coag (Bld) [Time] 33.9 s Normal 22.3-36.2 [facility] Comment on above: Performed By: #### P TT, PT ####[facility] [address] [place], [place] [address]DrCaroline Shivandana Jackson TROPONIN, HIGH SENSITIVITYon 08-16-2022 HSTROP 15.1 pg/mL Normal 4.0-51.3 [facility] Comment on above: Result Comment: CUT- OFF POINTS HAVE BEEN ESTABLISHED BASED ON THE FOURTH UNIVERSAL DEFINITIONS OF MYOCARDIAL INFARCTION. THE UPPER REFERENCE LIMIT (URL) OF TROPONIN, DEFINED THE 99TH PERCENTILE OF cTnI DISTRIBUTION IN A REFERENCE POPULATION, HAS BEEN CONFIRMED THE DECISION THRESHOLD FOR [place] DIAGNOSIS. Performed By: #### H STROPN #### [facility] [address] [address] [address] Fred Jackson TSHon 08-16-2022 TSH 4.364 uIU/mL Critically high 0.358-3.740 [facility] Comment on above: Performed By: #### T SH, CMP, BNP, CMADM ####[facility] [address] [place], [place] [address]Sr. Fred Jackson XR CHEST 1 Von 08-16-2022 [...] DALI MYERS Date: 2022-08-16 00:02 Normal [facility] Covid-19 PCR (CVDTB)on 03-06 SARS-CoV-2 (COVID-19) RNA VERONICA+probe Ql (Unsp spec) Detected Critically abnormal NOT DETECTED [facility] Comment on above: Result Comment: This test is not yet approved or cleared by the [place] FDA. When there are no FDA-approved or cleared tests available, and other criteria are met, FDA can make tests available under an emergency access mechanism called an Emergency Use Authorization (EUA). The EUA for this test is supported by the Printing Agent of Health and Human Service's (HHS's) declaration [...] be used). Performed By: #### C VDTBH ####[address] [place], [place] [address]Ne. Fred Jackson US CAROTID ART BILon 022 [...] by: TIFFANIE LEON Date: 2022-03-12 14:51 Normal [facility] MAMM SCREEN 3D JASMEET CADon 02-09-2022 MG MAMM SCREEN 3D JASMEET CAD Patient: SHARRI COONEY Exam Date: 02/09/2022 : 1950 Gender:F Ordering : DR RINKU PETERSON . Admission #: [id number] Family : Order #: [id number] CLICK HERE TO VIEW EXAM RADIOLOGY REPORT [...] prostate cancer at age 60. LOCATION: [facility] BREAST COMPOSITION: Heterogeneously dense,which may obscure [...] [facility] Coding Summary.on 03-12-2021 Coding Summary. CD:[id number] G h0bWw+PGhlYWQ+FG3CJRM xT64inRKzyA6WP0vYXC4O TTJNFSMVAC6EXI1yqES7S GtiI9NmobGz PkovrJIvIC50UXj5EPE2m ZjjRHcjkO7pmWCeP3j1Jq KhYN78lR79FRghNHUzCbT 3LjZpbjsgbWFy V2dpHlPcmMKpDee+PHRhY mxlIHdpZHRoPScxMDAlJy AsxWefTM3vPs3gHEPmCGW vbGxhcHNlOiBj l5urCQLrXMvbIQ1gtFbzN 9UieZM5IVNte9r5Yd71zN I+TPCjQLC7iPhpYLdkn29 6MvYtv7enQKM4 iTAeHUmdTXK7H19pg1F2U OTzAHNaAYB7gCW2vU9rlR qiyuvaH1NwkLXtFaM6LCY 0kLCaxZ7ooBtj pjcqzR5eWzf+K90DKI9FO UOHKL1XKme5U5UvRhtngP I+DT64NPBfPV86hWGpoHO ia8cvlLj7OxHd WKKsBSC9zIirCBbps5HxY DFyN77zcFHig5M3KDYmoR itfZBjOkNnuHP8xW5hFLt imrexy1cjdhtj Opmvj3ylwt90qJ47B29bP OabHYJmPIA2VYTbSBIrkJ mtah2drU9kKv6+WPbwe7m mq8swvTa2SxVs SDCuypFvrMhgFME3a2LiZ x47P0BehJtyq6KiOvm5iq 87sCPjo8D5zSY3MCqtKRW lrT1eFPzaRtQ8 DVNgJiFxcC41hBZkYUgoJ r3okNbcwOhkQN2uVKCpbz wfXWAyrW5iDKJxaCXhsZm vXM9xEDMznwmj x717LxNwTWX8XXBmbAJsC 9VbnX2tJnTzNUKfDSVaC2 RrfYGnEThqD021PAdrCbS 9WFXmuwZiS3Pk ODSzuObaPoK0i1E2Ba9Hf 4VlazfyTQC5EQckGPX8Ug Z9NbFsBmG2O2RxGuj5NRW hoPimUE4tK7Pt OUEqldbjhsguhSZ2IOGzG LJihU33fOSnRZshGy8me3 H6h208VRUeAPOhzN64Vg7 udDogMTBwdCBU wH3tslmym8camxkuGgQhD EKfLQs0KWf9EBDvxRsnBg LkHQV3EjV0COX3pENphL7 omEduneqbzK4n Oyc+G13rfD5gOXO2SNG3l zizEMUlndVpMJ06DC56N0 RyPjwvdGFibGU+PGRpdiB ssAvoVA2gCnHc e4dky3DiYAptS6ZpWIZzP BsuZda1MMPcSLM1mFO2qZ 3oZTPcHPkxv0J8fBF3U9M bvzXado5qb0ex QCLeLSfjU26viUNvn9B9Q QNotFV0YSWprYoqMpFheI 93Oyc+EMBxsHsjy3ZwWos yu4syr7tovWc3 QoDtYQBcltTwvRewDDP0n 4EwQd71Y85oVWpgATVsOK DeEQKlROVwdVurea5khY7 wIi8+PGNvbCB3 bVY7iH9yKLYvYjE2EEdwX 814XrFtlOBiOuyut1rwt5 fjoBj8DcAfFVSjqlRwsIj jZMB3r3VbXu93 W69hFVppUOTpQDJfOBYwY YWhwVlypg9ojJ8gPg6+PC 5bi7rttv14mI46jNQ+PHR jOBV1tWpjCPcy UDKjxL2fICnuLwU2ZGXwW zNceF73cLDcQQtqYg7wnN ewtIxyVU6zJPNclizie46 4DqWjb4qcTFQj cVNtYPquPIP0B47qk5J1A RRvYNHxROF1sWS1mC3ruC lnbjogbGVmdDsgdmVydGl yQFnqVLnfQ891 IHRvcDsnPlBhdGllbnQgT oRxTEy8A4UqWul0GGFluR fjIV7arQSjSAmgZt7inAq uiHjvTM2lRISa oyfxm046SbHap9cbOGTkv PTrAJrvHML1M22ij6K1IS SjUENpVQA2jQV5cF5fiLj nbjogbGVmdDsg lfItmAwjUUgbAIwwF566F HRvcDsnPkJpcnRoIERhdG S0LO26WU14qGTqg0Y5pXP 7P2ZaXFItfhyq wuklxTC4UFDoPSOlnO11H o6bhFaiGj2jMIViKFR8HN XxnYYsJ0GisJ2pOtMpNPI iHQOvB6GfaMSw TUwcY014RMixLhM8LZVpc tRdL2MgMFFfrXyzWnP2b9 H9Iv5BW8Q2XW79AL36hRF rh7Q1jAA0D8Wu QQPvwfoaghanlVR5EHIhK SMihP69Ur8liXbjFe7iWG DhSGM8OSRqrONjT5ZaeW7 yOiAjMDAwMDAw E0TwuEWtFDhdS836IIpmX fL7EECbpoBeR5MnIJOzsU chXoZ6m4B1Iu8FEKi1PT6 8DG01oMHta2V5 zGA9Z1AeNWTzqebslpvnx XY4PZHiGDFmnA71Cu5wkY akFh0yYZVoTEC2QDMqbIP xN3YzqV3qOmEc YRZgQEZqA3NivKNvNBwgY 097CXglUhH4NXAhmfLuO2 OdRKZxmKhnGmV7b9Z2Dt3 QSADpAP23WAH5 sEZ0ID33QI52L7TdXfakj GFibGU+PHRhYmxlIHdpZH RoPScxMDAlJyBzdHlsZT0 oCm5oHLCxFNIm tWjfoHGeZrHwl7xqWDZzL RarPY0taSebI9FruZF7QJ Rxs7y4No13Q34oI8MltPS +IUKinED1mRL7 qX1kBmJaAwA5MLgvR904D qTgwNZsDvjlw4urt0gnjR d6ImP0OCMjwgTkqSaxQIJ 6h4IcCp84P89s IHdpZHRoPSIxNSUiIHZhb Abfkc2foZ6kIa2+PGNvbC L5oHR3tI7tRqSxYvM0BLd uJ681HvVvxQQo Onucj7ckd7ukqRj9GeTdX KImpqQtiRejWTR6h4QaTi 32V0KisJyet8KhTvt0zl0 1mEXpb0C9qWM3 E0QrCIIvbbwjzRJqgYwpJ U3iBGOrtpcgNRClpB5dZU LaG0g8BqXiVsV7OGqoV7S qjnS8GWCvcFVo HZycILH9U69nb9J5TYFlA IApSRF0yZA8vZ4duObbwp ogbGVmdDsgdmVydGljYWw xYQwcG527UNQe aWkbDKLdeD8mSLHqyXWqo FsjND4dQDWlvpkjYkHTWp PSAUceJYCHHdNDPkM2P5N kVzn3YZNmuRjt OT0nqZEmWSifGf6cgIczk AxlBX0gJXLhfsvdALLwdF 8rYKVhtNDimIbwUZ9dJAV whzxed857AlYo RWZ1KHFidNIdW2RrwX8wY bUgMPLaSANnP6NoiGLgFO jiC456FOkcJfQ4YSUumkH sH6AmBIXzhWxq ByZ8b1M7Dv9qPh4qTO1gM MQbXJ55RV48gSYxu3I9fC I2S7SvIJLjkciimjlhyFB 8GGHfPSYqpY21 uBPeUDeyTf6hc1H1a883W ETlCGSqgE48Xb8kxSbnRU JxwIQWxX3nwfqzi2uondo gIzAwMDAwMDt0 MCh2WUPigWdlPtMtYRM2O jS6UVH7vKHiyD8ikLzzxm kzhS9vLbq+NjggWWVhcnM 8V4CpTyb1KURb sFmuGW6hcDKpEXmvIw7yl JhnwDrsRZ5tDLOqlrebIJ ZorC0qHSHbbQWuyVblOD3 hEBNznomnu839 HoIsJYN5EESopSVdE0Lto V9rTwYkJWVnJPJvX7IllO SdKOzoU805PCqgXrM4FZK zzjJzD4NnBQOe hJayXbK9b3M3Pd9UUP3xe HZ0P4RlWgx2DIHvoAggIX 0ksRAfNGvcFt5ngJqzeRd cFT5hMQGoaruv KMUxlW0uEIMqdDRvaEzqM L3nVIThpcffq635JwLeXP V2KTKnzIMxR3YutD0tNbS bXFEdLNJrJ5Af zZDnXGswN451QAetYaG9P ZIcsaLtR0UlEWVqlRukMp K0r9S2Bj4MWMOiWKYosVW xUjU9K4ApPwkq dHI+KS85CKWrAB08jWGth CVoo2xybAf4RhZtSZFdMJ U7mSjjGEhxh3HoJAKoX13 kiCWci3N3HOFg iFgtlZFaKkOtfKQ0fW3qX Jgqxwuyb4pdpppgFaeay4 zwyi12wT22U55hLCgiXFS oPSIzMCUiIHZh oRidzc2fpB4vVc4+PGNvb PK4mHG3nK9vTdQjXiJ7II wnV600FkEmiEBxWahjy0e nf1bdgNr2DkHj EUQewtCxuHvbABN9o1CnY u07U96gDLftANNiMDGqRJ HwTPJdtBwibj9gyO0xWw2 +HX0cz7ysjb90 zH40gFY+OBGzPEV0xSkgE YfjBXWyqO0gXZifMwL1FK BbVwQbxD69mDUfXTarDn5 ksWyxtXgnKU3l KUHjxpabc548HtEgd3rzD ZPxoIXcYNysONN6P52qp9 R3FVQoRFLjWUV1yIM7tD1 hbGlnbjogbGVm dDsgdmVydGljYWwtYWxpZ 963FHNvxFhbHwSttIWuB8 fxodKFKU9uYiyafCE+PHR dULE5lEsdNKoe PUUtsD4qAHSsU9s9DjRvO yO7DSouS5XfbdH6OKSbcL NlFXQlyNNYsA9eabbug0d vcjogIzAwMDAw RQv8TQr0SSJzsFefSjLaW TQ8GgK5FTM2cVKppQ0ktG fbdhqnmU9sXpg+RklOOjw vdGQ+PHRkIHN0 fZhhOHesCEHxxS9mDVNfS 2v0HtFwWmA5PBtaW5Lque P9ELIfrPAbEJBtnURWiP7 yvnafu8jlwwhz CtCkEQMdOBd8ASa6PJWec IfnUoHlYWK8MnZ1VAS4uT XwiC4ybOnkyylyyO9gNib +TVJOOjwvdGQ+ YRPpFYP9aHuxFBedBXYsv X3yTIKdP5j9EtOoArG6FB yuR0ZahxZ6KOQckTBnRDU amAEOkK3rxouh c3nsymcgEuJbHKUaEBp0M Kn4MOBikFxvYjDlKJQ2Eo R5PUO8lMJfjH0zxVyacmn ooH3vMzp+UGF5 HLR2HY54CA04K9ZgDvrfy GFibGU+PHRhYmxlIHdpZH RoPScxMDAlJyBzdHlsZT0 yCc1sTPZwYIQv bGxh (more content not included)... [facility] Physician Orderon 02-19-2021 Physician Order [id number]# 1.00CD:127 [facility] Vital Signs Date Time Vital Sign Value Performing Clinician Facility 04-22-2023 12:20-0400 Body height 153.67 cm [facility] Other [facility] Other 04-22-2023 12:20-0400 Body mass index (BMI) [Ratio] 24.58 kg/m2 [facility] Other [facility] Other 04-22-2023 12:20-0400 Body temperature 98.3 [degF] [facility] Other [facility] Other 04-22-2023 12:20-0400 Body weight 58.06 kg [facility] Other [facility] Other 04-22-2023 12:20-0400 Respiratory rate 18 /min [facility] Other [facility] Other 04-22-2023 12:20-0400 SaO2% (BldA) [Mass fraction] 96 % [facility] Other [facility] Other Encounters Encounter Date Encounter Type Care Provider Facility Start: 03-31-2024 ambulatory TURNER H[facility] Start: 03-08-2024 End: 03-08-2024 ambulatory TITA SHELDON Not Available Start: 02-01-2024 End: 02-01-2024 ambulatory [facility] Start: 01-13-2024 End: 01-13-2024 ambulatory [facility] Start: 12-10-2023 End: 12-10-2023 ambulatory [facility] Start: 12-06-2023 End: 12-06-2023 ambulatory TITA SHELDON Not Available Start: 11-24-2023 End: 11-24-2023 ambulatory [facility] Start: 11-03-2023 ambulatory [facility] Start: 10-28-2023 End: 10-28-2023 ambulatory [facility] Start: 06-04-2023 End: 06-04-2023 ambulatory [facility] Start: 04-22-2023 End: 04-22-2023 ambulatory [facility] Other [facility] Other Start: 04-22-2023 Office outpatient vi sit [...] acellular pertussis vaccine, adsorbed [facility] Other [facility] Other Payers Date Payer Category Payer Medicare [id number] 1950 Unknown [id number] 2.16.84 [id number] 1950 Unknown [id number] 2.16.84 [id number] 1950 Unknown [id number] 2.16.84 [id number] 1950 Unknown [id number] 2.16.84 [id number] 1950 Unknown [id number] 2.16.84 [id number] 1950 Unknown [id number] 2.16.84 [id number] 1950 Unknown [id number] 2.16.84 [id number] 1950 Unknown [id number] 2.16.84 [id number] 1950 Unknown [id number] 2.16.84 [id number] Social History Date Type Detail Facility Unknown if ever smoked [facility] Other Sex Assigned At Sex Assigned At Bir th [facility] Other Clinical Notes 04-22-2023 to 02-01-2024 Note [...] or signs patient was recently seen in [place] [facility] 08/2022 for palpitations. She was found [...] palpitations, lightness, dizziness, fatigue 08/2022 ECG by [place]- appears to be sinus tach with [...] alcohol infrequently, no significant caffeine intake, no fxsy-ree-tbiocgj decongestions Family history: Her mother of a [...] alcohol infrequently, no significant caffeine intake, no lhab-day-btfxfih decongestions Family history: Her mother of a [...] Not on file (more content not included)... [facility] 02-01-2024 Note Patient here for fol low up heart cath with Dr. Peter on 01/13/2024. Says she's been feeling good. Denies chest pain, SOB, palpitations, lightheadedness/syncope, and bleeding on Eliquis. BP's from home are low at times. Review of Systems All other systems reviewed and are negative. [facility] 01-13-2024 Note Cardiovascular Labor atory Report FINAL [...] left radial artery was obtained. A 6 [place] glide sheath was inserted without difficulty. Difficulty [...] is angiographically nonobstructive. INDICATIONS: Abnormal stress test [facility] 12-14-2023 Note [facility] This report has been cancelled. [facility] 12-01-2023 Note Error [facility] 11-25-2023 Note FYI - I made patient aware that we will proceed with coronary angiogram. I placed the orders but EPIC is being EPIC and won't let me close the encounter so working with IT on this. Thx [facility] 11-25-2023 Note EKG portion was posi tive for inferior ischemia. Nuc imaging was negative for ischemia. Her sx's are dyspnea. We are looking to start flecanide for her for her a.fib. Should we proceed with cath or coronary CTA? Thanks! [facility] 11-25-2023 Note Do we have the exerc ise portion results? [facility] 11-24-2023 Note LOOP IMPLANT PROCEDU RE NOTE DATE OF PROCEDURE: 11/24/23 PERFORMING PHYSICIAN: Dr. Turner Harding ROLLER SKATER: NA INDICATIONS FOR PROCEDURE: 1. SVT/AF surveillance [...] the sternum on the left using the [employer] tool. The loop recorder was then [...] the incision. Turner Harding MD Cardiac Electrophysiology. [facility] 11-03-2023 Note [place] [facility] Consult Note Reason for visit: 6 [...] or signs patient was recently seen in [place] [facility] 08/2022 for palpitations. She was found [...] palpitations, lightness, dizziness, fatigue 08/2022 ECG by [place]- appears to be sinus tach with [...] alcohol infrequently, no significant caffeine intake, no qwkj-xra-dnfswrb decongestions Family history: Her mother of a [...] alcohol infrequently, no significant caffeine intake, no usol-uxe-zsntfdb decongestions Family history: Her mother of a [...] on file Intimate Partner Violence: Unknown (08/26/2023) [place] Safety & Environment Fear of Current or Ex-Partner: Not on file Emotionally Abused: Not on file Physically Abused: Not on file Sexually Abused: Not on file Physically or Sexually Abused: Not on file Depression: Not on file Housing Stability: Not on file U (more content not included)... [facility] 10-28-2023 Note [place] [facility]rophys[facility] Consult Note Reason [...] or signs patient was recently seen in [place] [facility] 08/2022 for palpitations. She was found [...] palpitations, lightness, dizziness, fatigue 08/2022 ECG by [facility]- appears to be sinus tach with [...] alcohol infrequently, no significant caffeine intake, no veuh-kvm-eafppxg decongestions Family history: Her mother of a [...] alcohol infrequently, no significant caffeine intake, no svix-ubg-jaozhve decongestions Family history: Her mother of a [...] Intimate Partner Violence (more content not included)... [facility] 10-28-2023 Note Patient here for [facility] ED for afib. Says [...] All other systems reviewed and are negative. [facility] 06-04-2023 Note [place] Electrophysiology Consult Note Reason for visit: 6 [...] or signs patient was recently seen in [place] [facility] 08/2022 for palpitations. She was found [...] palpitations, lightness, dizziness, fatigue 08/2022 ECG by [facility]- appears to be sinus tach with [...] alcohol infrequently, no significant caffeine intake, no zevw-fjj-tcfbuaq decongestions Family history: Her mother of a [...] alcohol infrequently, no significant caffeine intake, no magz-mmf-ffidgwv decongestions Family history: Her mother of a [...] (Eliquis) 5 m (more content not included)... [facility] 06-04-2023 Note Patient here for 6 m o follow up PAF, mitral valve regurgitation, and hypertension. She had an echo in January 2023. Says her BP has been running around 150/90, as she is always high strung this time of year . Denies chest pain, SOB, palpitations, lightheadedness, and bleeding on Eliquis. Review of Systems All other systems reviewed and are negative. [facility] 04-22-2023 Evaluation note Encounter Date Diagnosis Assessment [...] see your pcp. Take tylenol as needed. [facility] Other History general Narrative - Reported* Type Description Date Medical History HTN Medical History HYPERLIPIDEMIA Medical History SHINGLES Medical History GUILLAIN-BARRE SYNDROME Medical History Afib Surgical History TUBALIGATION Surgical History EYE SURGERY Surgical History MACULAR HOLE Surgical History LUMP REMOVED FROM LEFT BREAST Surgical History bunionectomy Hospitalization History 3 CHILD BIRTHS Hospitalization History GUILLAIN-BARRE SYNDROME [facility] Other Summary Purpose Family History No Family History Records FoundNo Family History Records FoundNo Family History Records FoundNo Family History Records Found Advance Directives No Advanced Directives Records FoundNo Advanced Directives Records FoundNo Advanced Directives Records FoundNo Advanced Directives Records Found Additional Source Comments INFORMATION SOURCE (unrecogn ized section and content) DATE CREATED AUTHOR 03/13/2021 [facility] DATE CREATED AUTHOR AUTHOR'S ORGANIZ ATION 10/30/2022 [facility] DATE CREATED AUTHOR AUTHOR'S ORGANIZ ATION 03/09/2024 [facility] DATE CREATED AUTHOR AUTHOR'S ORGANIZ ATION 04/02/2024 [facility] REASON FOR VISIT (unrecogniz ed section and [...] BE BASED ON THE PRIMARY CLINICAL RECORDS. [employer] provides no warranty or guarantee of the accuracy or completeness of information in this document.
== END 2024-04-10 07:29 | disposition home or self-care (01) ==
LOC: EC 07:28
PROVIDERS: PCP Internal Medicine; Visit Provider Orthopaedic Surgery
DX: S52.592D Other fractures of lower end of left radius, subsequent encounter for closed fracture with routine healing (principal)
CPT/HCPCS: 73110

== ENCOUNTER 2024-05-08 07:45 | Outpatient (OUT) | payer MEDICARE, SELFPAY ==
--- NOTE | 2024-05-08 | XR_ITS ---
The [address] [address] Patient Name: MADAN COONEY MRN: [id number] date: 1950 Sex: F Assigned Patient Location: Current Patient Location: Accession/Order Number: [id number] Exam Date: 05/08/2024 07:55 Report Date: 05/09/2024 10:13 At the request of: TIFFANIE VILLANUEVA Procedure: XR wrist LT min 3V PROCEDURE: XR wrist LT min 3V COMPARISON: 04/10/2024 HISTORY: LEFT WRIST PAIN FINDINGS: BONES:Stable healing complex intra-articular distal radius fracture with interval increase in overall sclerosis. No change in angulation or distraction. Moderate degenerative changes with joint space narrowing. SOFT TISSUES:Negative. No visible soft tissue swelling. EFFUSION:None visible. OTHER: Negative. XR/XR wrist LT min 3V IMPRESSION: Stable healing complex distal intra-articular radius fracture Electronically authenticated by: RAFIQ HAMMOND Date: 05/09/2024 10:13
== END 2024-05-08 07:46 | disposition home or self-care (01) ==
LOC: EC 07:45
PROVIDERS: PCP Internal Medicine; Visit Provider Orthopaedic Surgery
DX: S52.572D Other intraarticular fracture of lower end of left radius, subsequent encounter for closed fracture with routine healing (principal)
CPT/HCPCS: 73110

== ENCOUNTER 2024-06-05 08:03 | Outpatient (OUT) | payer MEDICARE, SELFPAY ==
--- NOTE | 2024-06-05 | XR_ITS ---
The [address] [address] Patient Name: MADAN COONEY MRN: [id number] date: 1950 Sex: F Assigned Patient Location: Current Patient Location: Accession/Order Number: [id number] Exam Date: 06/05/2024 08:05 Report Date: 06/06/2024 06:22 At the request of: TIFFANIE VILLANUEVA Procedure: XR wrist LT min 3V PROCEDURE: XR wrist LT min 3V HISTORY: LEFT WRIST PAIN COMPARISON: XR wrist left 05/08/2024 FINDINGS: BONES:Stable alignment and decrease in density of prior distal radius fracture. Stable degenerative changes of the carpal joints and radiocarpal joint. SOFT TISSUES:Soft tissue swelling surrounding the wrist. EFFUSION:None visible. OTHER: Negative. XR/XR wrist LT min 3V IMPRESSION: 1. Stable alignment and ongoing bone healing of distal radius fracture. Electronically authenticated by: TIFFANIE LEON Date: 06/06/2024 06:22
== END 2024-06-05 08:04 | disposition home or self-care (01) ==
LOC: EC 08:03
PROVIDERS: PCP Internal Medicine; Visit Provider Orthopaedic Surgery
DX: S52.572D Other intraarticular fracture of lower end of left radius, subsequent encounter for closed fracture with routine healing (principal)
CPT/HCPCS: 73110

== ENCOUNTER 2024-06-05 20:35 | Outpatient (REF) | payer MEDICARE, SELFPAY ==
--- OUTSIDE RECORDS SUMMARY | 2024-06-05 20:38 | XMS_ITS | CCD ---
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 Name Role Phone DIONY Velazquez, DR DOBBS Primary Care Unavailable FREDY ., BRANDO Consulting Unavailable FREDY ., BRANDO Attending Unavailable FREDY Velazquez, BRANDO Admitting Unavailable DALI MYERS Consulting Unavailable EDWARD, DR TIFFANIE Ragland Consulting Unavailable CASSIE PERRY Attending Unavailable CASSIE PERRY Admitting Unavailable HOY ., DR DOBBS Primary Care Unavailable CASSIE PERRY Consulting Unavailable HOY ., DR DOBBS Admitting Unavailable HOY ., DR DOBBS Primary Care Unavailable HOY ., DR DOBBS Consulting Unavailable HOY ., DR DOBBS Attending Unavailable WEST, DR RAFIQ Chi Consulting Unavailable LEAH SEALS [...] MYRA LEUNG Consulting Unavailable Broderick Solomon Unavailable Rinku Peterson MD Primary Care Provider Ryan Ruiz MD Unavailable TURNER HARDING Referring Unavailable TURNER HARDING Referring Unavailable TURNER HARDING Referring Unavailable PRETTY PLAZA Attending Unavailable PRETTY PLAZA Attending Unavailable KATE BRODERICK Attending Unavailable CECILIA PETER Referring Unavailable TURNER HARDING Attending Unavailable TURNER HARDING Referring Unavailable ELTAHAWY, EHAB Admitting Unavailable ELTAHAWY, EHAB Attending Unavailable ELTAHAWY, EHAB Admitting Unavailable ELTAHAWY, EHAB Attending Unavailable TURNER HARDING Admitting Unavailable TURNER HARDING Attending Unavailable RYAN RUIZ Attending Unavailable RYAN RUIZ Attending Unavailable JORGE, AMBERLY Attending Unavailable VILLANUEVA, TIFFANIE C Referring Unavailable BLACKSTON, AMBERLY Attending Unavailable VILLANUEVA, TIFFANIE C Referring Unavailable BLACKSTON, AMBERLY Attending Unavailable VILLANUEVA, TIFFANIE C Referring Unavailable BLACKSTON, AMBERLY Attending Unavailable VILLANUEVA, TIFFANIE C Referring Unavailable BLACKSTON, AMBERLY Attending Unavailable VILLANUEVA, TIFFANIE C Referring Unavailable BLACKSTON, AMBERLY Attending Unavailable VILLANUEVA, TIFFANIE C Referring Unavailable Allergies Allergy Classification Reported Allergen(s) Allergy Type Date of Onset Reaction(s) Facility (1 source) Sulfonamides (Antibiotic) Drug allergy (disorder) 09-01-[address] [facility] Repository (1 source) Sulfamethoxazole / Trimethoprim Drug Allergy NAILS TURNED PURPLE [employer] Other (14 sources) Ciprofloxacin; 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: [CIPROFLOXACIN] Drug Allergy 11-24-19 24 [facility] (14 sources) levoFLOXacin; 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: [LEVOFLOXACIN] Drug Allergy 11-24-19 24 [facility] (13 sources) Sulfacetamide Drug Allergy 01-01-20 23 Hives [facility] (13 sources) Sulfonamides (Antibiotic) Drug Allergy 07-06-19 14 Unknown [facility] (1 source) Sulfonamides (Antibiotic); 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: [SULFA (SULFONAMIDE ANTIBIOTICS)] Propensity to adverse reactions to drug (disorder) 12-03-19 23 [facility] Repository Medications Current Medications Medication Drug Class(es) Dates Sig (Normalized) Sig (Original) apixaban 5 mg oral tablet (14 sources) Factor Xa Inhibitor take 1 tablet by mouth in the morning apixaban (Eliquis) 5 MG tablet Take 1 tablet by mouth in the morning and 1 tablet before bedtime. Active azithromycin 250 mg oral tablet (1 [...] 1 tablet with food Orally bid Active Calcium 600-5 MG-MCG tablet (13 sources) Calcium 600-5 MG -MCG tablet Take by mouth Active Centrum Silver Adult 50+ - (1 source) Centrum Silver A dult 50+ - as directed Orally Active cholecalciferol 0.01 mg/ml oral solution (13 sources) Vitamin D Cholecalciferol (Vitamin D) 10 MCG/ML liquid Take by mouth Active cranberry preparation 500 mg oral capsule (14 sources) Non-Standardized Food Allergenic Extract, Non-Standardized Plant Allergenic Extract Cranberry 500 MG capsule Take by mouth Active Cranberry 250 MG as directed Orally Active hydroCHLOROthiazide 12.5 mg / lisinopril 10 mg oral tablet (14 sources) Thiazide Diuretic, Angiotensin Converting Enzyme Inhibitor Start: 12-09-2022 lisinopril-hydroCHLOROthiazi de 10-12.5 MG tablet Take 1 tablet by mouth Daily 1/2 tablet as directed 12/09/2022 Active Start: 12-09-2022 take 1 tablet by angie th in the morning lisinopril-hydroCHLOROthiazide 10-12.5 M G tablet Take 1 tablet by mouth in the morning. as directed. 12/09/2022 Active Lisinopril-hydro CHLOROthiazide Active magnesium oxide 400 mg oral capsule (13 sources) Start: 12-01-2023 Magnesium Oxid e -Mg Supplement 400 MG capsule 12/01/2023 Active 24 hr metoprolol succinate 50 mg extended release oral tablet (14 sources) beta-Adrenergic Jimy Start: 12-02-2022 take 1 tablet by mouth every twenty-four hours in the morning metoprolol succinate XL (Toprol-XL) 50 MG 24 hr tablet Take 50 mg by mouth in the morning. 12/02/2022 Active Metoprolol Succi vicente ER Active molnupiravir 200 MG Oral Capsule [Lagevrio] (1 source) Start: 04-22-2023 take 4 capsules by mouth every twelve hours Molnupiravir 200 MG 4 capsules Orally every 12 hrs for 5 day(s) Apr, Active potassium 99 mg extended release oral tablet (1 source) take 1 tablet by mouth once daily Potassium 99 MG 1 tablet Orally Once a day Active potassium chloride 10 meq extended release oral tablet (13 sources) Start: 12-02-2022 take 1 tablet by mouth in the morning potassium chloride CR (Klor-Con) 10 MEQ ER tablet Take 10 mEq by mouth in the morning. 12/02/2022 Active sertraline 50 mg oral tablet (13 sources) Serotonin Reuptake Inhibitor Start: 11-30-2023 take 1 tablet by mouth once daily sertraline (Zoloft) 50 MG tablet Take 50 mg by mouth Daily 11/30/2023 Active simvastatin 10 mg oral tablet (14 sources) HMG-CoA Reductase Inhibitor Start: 12-02-2022 take 1 tablet by mouth in the morning simvastatin (Zocor) 10 MG tablet Take 10 mg by mouth in the morning. 12/02/2022 Active Simvastatin Acti ve Vitamin D-3 1000 UNIT (1 source) take 2 tablets by mo uth once daily Vitamin D-3 1000 UNIT 2 [...] Active Problems Problem Classification Problem Date Documented Date Episodic/Chronic Anxiety disorders (13 sources) Anxiety disorder; 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: [Anxiety disorder, unspecified] Onset: 10-28-2023 12-03-2023 Chronic Cardiac dysrhythmias (15 sources) Atrial fibrillation; 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: [Unspecified atrial fibrillation] Onset: 02-24-2021 12-03-2023 Chronic Cardiac dysrhythmias (7 sources) Palpitations; 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: [PALPITATIONS] Onset: 08-16-2022 Episodic Coronary atherosclerosis and other heart disease (13 sources) Non-obstructive atherosclerosis of coronary artery; 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: [Atherosclerotic heart disease of [place] coronary artery without angina pectoris] Onset: 03-08-2024 03-08-2024 Chronic Disorders of lipid metabolism (15 sources) Mixed hyperlipidemia; 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: [Mixed hyperlipidemia] Onset: 10-29-2023 12-03-2023 Chronic Essential hypertension (15 sources) Essential hypertension; 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: [Essential (primary) hypertension] Onset: 12-30-2022 12-03-2023 Chronic Fracture of upper limb (19 sources) Closed fracture of distal end of radius; 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: [Other intraarticular fracture of lower end of left radius, initial encounter for closed fracture] Onset: 05-09-2024 05-09-2024 Episodic Heart valve disorders (15 sources) Non-rheumatic mitral regurgitation ; 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: [Nonrheumatic mitral (valve) insufficiency] Onset: 12-30-2022 12-03-2023 Chronic Hypertension with complications and secondary hypertension (13 sources) Benign hypertensive heart disease without congestive heart failure; 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: [Hypertensive heart disease without heart failure] Onset: 10-29-2023 12-03-2023 Chronic Mycoses (4 sources) Tinea unguium; 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: [TINEA UNGUIUM] Onset: 10-23-2022 Episodic Osteoporosis (4 sources) Age-related osteoporosis without current pathological fracture; 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: [AGE-REL OSTEOPOR W/O CURR PATH FX] Onset: 08-25-2022 Chronic Other aftercare (1 source) 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; 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: [LONGTERM CURRNT USE ANTICOAGULANTS] Onset: 08-18-2022 Episodic Other aftercare (1 source) Other fpc (current) drug therapy; 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: [OTH LONGTERM CURRENT DRUG THERAPY] Onset: 08-18-2022 Episodic Other bone disease and musculoskeletal deformities (1 source) Other specified disorders of bone density and structure, multiple sites; 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: [OTH D/O BONE DENSITY STRUCT MX SITE] Onset: 08-28-2022 Episodic Other endocrine disorders (13 sources) Mass of left adrenal gland; 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: [Other specified disorders of adrenal gland] Onset: 12-30-2022 12-03-2023 Chronic Other non-traumatic joint disorders (19 sources) Pain of left wrist; 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: [Pain in left wrist] Onset: 05-09-2024 05-09-2024 Episodic Other nutritional; endocrine; and metabolic disorders (1 source) Hypomagnesemia; 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: [HYPOMAGNESEMIA] Onset: 08-18-2022 Chronic Other nutritional; endocrine; and metabolic disorders (13 sources) Hypomagnesemia; 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: [Hypomagnesemia] Onset: 10-29-2023 12-03-2023 Chronic Other screening for suspected conditions (not mental disorders or infectious disease) (8 sources) Encounter for screening mammogram for malignant neoplasm of breast; 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: [Abnormal result of other cardiovascular function study] Onset: 02-09-2022 Episodic Other upper respiratory infections (4 sources) Chronic sinusitis, unspecified; 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: [CHRONIC SINUSITIS UNSPECIFIED] Onset: 03-30-2022 Chronic Other upper respiratory infections (1 source) Acute upper respiratory infection, unspecified Episodic Pulmonary heart disease (13 sources) Pulmonary hypertension; 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: [Pulmonary hypertension, unspecified] Onset: 12-06-2023 12-06-2023 Chronic Residual codes; unclassified (2 sources) Postmenopausal state; 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: [Asymptomatic menopausal state] 06-05-2024 Episodic Past or Other Problems Problem Classification Problem Date Documented Da te Episodic/Chronic Fluid and electrolyte disorders (14 sources) Hypokalemia; 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: [Hypokalemia] Onset: 08-18-2022 12-03-2023 Episodic Other bone disease and musculoskeletal deformities (13 sources) Osteopenia; 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: [Other specified disorders of bone density and structure, multiple sites] Onset: 12-06-2023 12-06-2023 Episodic Other circulatory disease (4 sources) Other specified [...] Range Facility Office Visiton 02-01-2024 Follow-up visit [id number] Sharri Cooney 1950 F Date Provider Department Center 02/01/2024 PRETTY GALLAGHER CARD [facility] No family history on file Level of Service:62628 [place] OFFICE/OUTPATIENT ESTABLISHED MOD MDM 30 MIN Normal [facility] ANESon 01-13-2024 ANES - Attestation signed by Cecilia Peter MD at 01/13/2024 8:28 AM Cecilia Peter MD, MPH, [facility], [facility] Interventional Cardiology Pager Email: [email or web address] Patient: Sharri Cooney Procedure Information Date/Time: 01/13/24 0830 Procedure: Coronary angiography; PC Approved (12/02-05/31) Location: [facility] 3 / [facility] (Cath) Providers: Cecilia Peter MD [...] discussed with attending. Additional Equipment Requests Normal [facility] HPon 01-13-2024 HP - Attestation signed [...] wishes to proceed. Cecilia Peter MD, MPH, [facility], [facility], [facility] Interventional Cardiology Pager Email: [email or web address] H&P reviewed. The patient was examined and there are no changes to the H&P. Sharri Cooney is a 73 y.o. year old with past medical history of A-fib RVR, hypertension, dyslipidemia, and mild MR presents for ischemic work up for Afib. Patient will undergo coronary angiography. [facility] NURSNOTEon 01-13-2024 JAIME RN educated pt on d/ c instructions. RN encouraged pt to voice any questions or concerns. Pt verbalizes no questions or concerns at this time. Pt was wheeled off of unit with all of belongings. [facility] HPon 12-14-2023 HP New order for cardia c cath [facility] Orders Onlyon 12-14-2023 Orders Only [id number] Sharri Cooney 1950 Date Provider Department Center 12/14/2023 166-PRETTY PLAZA CARD [facility] No family history on file [facility] Telephoneon 12-10-2023 Telephone [id number] Sharri Cooney 1950 F Date Provider Department Center 12/10/2023 Gerald-BASSAM GOMEZ [facility] [place] [facility] No family history on file Normal [facility] Telephoneon 12-01-2023 Telephone [id number] Sharri Cooney 1950 F Date Provider Department [place] 12/01/2023 166-PRETTY PLAZA MC CARD [facility] No family history on file Normal [facility] Orders Onlyon 11-25-2023 Orders Only [id number] Sharri Cooney 1950 F Date Provider Department Center 11/25/2023 [id number], HISTORICAL CARD [facility] No family history on file [facility] HPon 11-24-2023 [facility] Electrophysiology [...] or signs patient was recently seen in [place] [facility] 08/2022 for palpitations. She was found [...] palpitations, lightness, dizziness, fatigue 08/2022 [facility] appears to be sinus tach with [...] alcohol infrequently, no significant caffeine intake, no yjql-[id number] decongestions Family history: Her mother of a [...] alcohol infrequently, no significant caffeine intake, no [id number]-[id number] decongestions Family history: Her mother of a [...] on file Intimate Partner Violence: Unknown (08/26/2023) [place] Safety & [place] Fear of Current or Ex-Partner: Not on file Emotionally Abused: Not on file Physically Abused: Not on file Sexually Abused: Not on file Physically or Sexually Abused: Not on file Depression: Not on file Housing Stability: Not on file U (more content not included)... [facility] NURSNOTEon 11-24-2023 NURSNOTE RN educated pt on d/ c instructions. RN encouraged pt to voice any questions or concerns. Pt verbalizes no questions or concerns at this time. Pt was walked off of unit with all of belongings. [facility] Office Visiton 11-03-2023 Follow-up visit [id number] Sharri Cooney 1950 F Date Provider Department Center 11/03/2023 GarethTURNER HARRIS [facility] CARD [place] [facility] No family history on file Level of Service:92445 [place] OFFICE/OUTPATIENT ESTABLISHED LOW MDM 20 MIN Reason for Visit and Comments: Follow-up [446975] Atrial Fibrillation [80] Normal [facility] 36on 10-29-2023 36 I ordered a stress test for her along with increased metoprolol and Kcl. Also started mag oxide. Please send stress to [facility] Please call patient and schedule her an appt with Dr. Harding at his soonest available. He said if she really wants to get in [place] with him he can see her at [place] next week while he is on Med . Thanks! Normal [facility] Telephoneon 10-29-2023 Telephone [id number] Sharri Cooney Reji 1950 F Date Provider Department Center 10/29/2023 166PRETTY ACOSTA DALE [facility] No family history on file Normal [facility] Office Visiton 10-28-2023 Follow-up visit [id number] Sharri Cooney Reji 1950 F Date Provider Department Center 10/28/2023 PRETTY GALLAGHER [facility] No family history on file Level of Service:09181 [place] OFFICE/OUTPATIENT ESTABLISHED MOD MDM 30 MIN Reason for Visit and Comments: Atrial Fibrillation [80] Palpitations [227346] Normal [facility] Office Visiton 06-04-2023 Follow-up visit [id number] Reno Reji 1950 F Date Provider Department Center 06/04/2023 KATE WHITTEN [facility] No family history on file Level of Service:00808 [place] OFFICE/OUTPATIENT ESTABLISHED MOD MDM 30-39 MIN Normal [facility] COVID/FLU RT-PCRon 3 SARS-CoV-2 (COVID-19) RNA VERONICA+probe Ql (Unsp spec) Positive [employer] Other COVID/FLU RT-PCR Negative [employer] Other [facility] 10-23-2022 AST [Catalytic activity/Vol] 45 U/L Critically high 15-37 [facility] Comment on above: Performed By: #### A LT, AST #### [facility] [address] [place] [address] Dr. [facility]-2022 ALT [Catalytic activity/Vol] 48 U/L Normal 14-59 [facility] Comment on above: Performed By: #### A LT, AST #### [facility] [address] [place] [address] Dr. Fred Jackson [facility] 09-10-2022 AST [Catalytic activity/Vol] 40 U/L Critically high 15-37 [facility] Comment on above: Performed By: #### A LT, AST #### [facility] [address] [place] [address] Dr. Fred Jackson [facility] 09-10-2022 ALT [Catalytic activity/Vol] 52 U/L Normal 14-59 [facility] Comment on above: Performed By: #### A LT, AST #### [facility] [address] [place] [address] Dr. Fred Jackson XR DEXA BONE DENSITYon 08-25 XR DEXA BONE DENSITY DEXA Bone Density Study CLINICAL: Evaluate bone mineral density. Postmenopausal COMPARISON: FINDINGS: The bone density study was assessed by dual-energy x-ray absorptiometry with the [employer] scanner. The test results are expressed in [...] Date: 2022-08-25 09:50 Normal [facility] BNPon 08-16-2022 Natriuretic peptide B (Bld) [Mass/Vol] 87.0 pg/mL Normal <=900.[address] [facility] Comment on above: Performed By: #### T SH, CMP, BNP, CMADM ####[facility] [id number] [place], [place] [address]Vq. Shivandana Manuel CARDIAC JASSI ADMITon 023 CK [Catalytic activity/Vol] 152 U/L Normal 26-[address] [facility] Comment on above: Performed By: #### T SH, CMP, BNP, CMADM ####[facility] [id number] [place] [address]Dr. Fred Jackson CK.MB [Mass/Vol] 2.96 ng/mL Normal <=3.60 [facility] [place] [facility] Comment on above: Performed By: #### T SH, CMP, BNP, CMADM ####[facility] [id number] [place] [address]Dr. Fred Jackson HSTROP 6.1 pg/mL Normal 4.0-51.[address] [facility] Comment on above: Result Comment: CUT- OFF POINTS HAVE BEEN ESTABLISHED BASED ON THE FOURTH UNIVERSAL DEFINITIONS OF MYOCARDIAL INFARCTION. THE UPPER REFERENCE LIMIT (URL) OF TROPONIN, DEFINED THE 99TH PERCENTILE OF cTnI DISTRIBUTION IN A REFERENCE POPULATION, HAS BEEN CONFIRMED THE DECISION THRESHOLD FOR [place] DIAGNOSIS. Performed By: #### T SH, CMP, BNP, CMADM ####[facility] [id number] [place] [address]DrCaroline Jackson ANGELI 80 ng/mL Normal 9-[address] [facility] Comment on above: Performed By: #### T SH, CMP, BNP, CMADM ####[facility] [id number] [place] [address]DrCaroline Jackson CBC AUTO DIFFon 08-16-2022 BASO # 0.1 103/ul Normal 0.0-0.[address] [facility] Comment on above: Performed By: #### C BC #### [facility] [address] [place] [address] Dr. Fred Jackson Basophils/100 WBC (Bld) 1.4 % Normal 0.2-2.[address] [facility] Comment on above: Performed By: #### C BC #### [facility] [address] [place] [address] Dr. Fred Jackson EO # 0.3 103/ul Normal 0.0-0.[address] [facility] Comment on above: Performed By: #### C BC #### [facility] [address] [place] [address] Dr. Fred Jackson Eosinophils/100 WBC (Bld) 3.1 % Normal 0.9-7.0 [facility] Comment on above: Performed By: #### C BC #### [facility] [address] [place] [address] Dr. Fred Jackson Erythrocyte distribution width (RBC) [Ratio] 12.0 % Normal 11.0-15.0 [facility] Comment on above: Performed By: #### C BC #### [facility] [address] [place] [address] Dr. Fred Jackson Hematocrit (Bld) [Volume fraction] 40.5 % Normal 36.0-48.0 [facility] Comment on above: Performed By: #### C BC #### [facility] [address] [place] [address] Dr. Fred Jackson Hemoglobin (Bld) [Mass/Vol] 13.8 g/dL Normal 12.0-16.0 [facility] Comment on above: Performed By: #### C BC #### [facility] [address] [place] [address] Dr. Fred Jackson IG # 0.06 10e3/ul Critically high 0.00-0.03 [facility] Comment on above: Performed By: #### C BC #### [facility] [address] [place] [address] Dr. Fred Jackson IG % 0.6 % Critically high 0.0-0.5 [facility] Comment on above: Performed By: #### C BC #### [facility] [address] [place] [address] Dr. Fred Jackson LYMPH # 3.8 103/ul Normal 1.2-3.[address] [facility] Comment on above: Performed By: #### C BC #### [facility] [address] [place] [address] Dr. Fred Jackson Lymphocytes/100 WBC (Bld) 36.6 % Normal 20.5-60.0 [facility] Comment on above: Performed By: #### C BC #### [facility] [address] [place] [address] Dr. Fred Jackson MANUAL DIFF REQ NO Normal [facility] Comment on above: Performed By: #### C BC #### [facility] [address] [place] [address] Dr. Fred Jackson MCH (RBC) [Entitic mass] 31.2 pg Normal 26.7-34.0 [facility] Comment on above: Performed By: #### C BC #### [facility] [address] [place] [address] Dr. Fred Jackson MCHC (RBC) [Mass/Vol] 34.1 g/dL Normal 29.9-35.[address] [facility] Comment on above: Performed By: #### C BC #### [facility] [address] [place] [address] Dr. Fred Jackson MCV (RBC) [Entitic vol] 91.6 fL Normal 81.0-99.0 [facility] Comment on above: Performed By: #### C BC #### [facility] [address] [place] [address] Dr. Fred Jackson MONO # 1.2 103/ul Critically high 0.3-0.8 [facility] Comment on above: Performed By: #### C BC #### [facility] [address] [place] [address] Dr. Fred Jackson Monocytes/100 WBC (Bld) 11.3 % Normal 1.7-12.0 [facility] Comment on above: Performed By: #### C BC #### [facility] [address] [place] [address] Dr. Fred Jackson NEUT # 4.9 103/ul Normal 1.4-6.[address] [facility] Comment on above: Performed By: #### C BC #### [facility] [address] [place] [address] Dr. Fred Jackson Neutrophils/100 WBC (Bld) 47.0 % Normal 43.0-75.[address] [facility] Comment on above: Performed By: #### C BC #### [facility] [address] [place] [address] Dr. Fred Jackson Platelet mean volume (Bld) [Entitic vol] 8.9 fL Critically low 9.5-13.[address] [facility] Comment on above: Performed By: #### C BC #### [facility] [address] [address] [address] Fred Jackson PLT 404 103/ul Normal 150-[address] [facility] Comment on above: Performed By: #### C BC #### [facility] [facility] [address] [address] [address] Fred Jackson RBC 4.42 106/ul Normal 4.20-5.[address] [facility] Comment on above: Performed By: #### C BC #### [facility] [address] [place] [address] Dr. Fred Jackson WBC 10.3 103/ul Normal 4.0-11.[address] [facility] Comment on above: Performed By: #### C BC #### [facility] [address] [place] [address] Dr. Fred Jackson PROF 14(COMP METB)on 023 Albumin [Mass/Vol] 4.3 g/dL Normal 3.4-5.0 [facility] Comment on above: Performed By: #### T SH, CMP, BNP, CMADM ####[facility] [address] [address]Dr. Fred Jackson Albumin/Globulin [Mass ratio] 1.2 {ratio} Normal [facility] Comment on above: Performed By: #### T SH, CMP, BNP, CMADM ####[facility] [address] [address]DrCaroline Jackson ALP [Catalytic activity/Vol] 96 U/L Normal 46-[address] [facility] Comment on above: Performed By: #### T SH, CMP, BNP, CMADM ####[facility] [address] [address]DrCaroline Jackson ALT [Catalytic activity/Vol] 34 U/L Normal 14-[address] [facility] Comment on above: Performed By: #### T SH, CMP, BNP, CMADM ####[facility] [address] [address]Dr. Fred Jackson Anion gap [Moles/Vol] 16.6 mmol/L Normal [facility] Comment on above: Performed By: #### T SH, CMP, BNP, CMADM ####[facility] [address] [address]Dr. Fred Jackson AST [Catalytic activity/Vol] 39 U/L Critically high 15-[address] [facility] Comment on above: Performed By: #### T SH, CMP, BNP, CMADM ####[facility] [address] [address]Dr. Fred Jackson Bilirubin [Mass/Vol] 0.8 mg/dL Normal 0.2-1.[address] [facility] Comment on above: Performed By: #### T SH, CMP, BNP, CMADM ####[facility] [address] [address]Dr. Fred Jackson Calcium [Mass/Vol] 10.1 mg/dL Normal 8.5-10.[address] [facility] Comment on above: Performed By: #### T SH, CMP, BNP, CMADM ####[facility] [address] [address]Dr. Fred Jackson Chloride [Moles/Vol] 91 mmol/L Critically low 98-[address] [facility] Comment on above: Performed By: #### T SH, CMP, BNP, CMADM ####[facility] [address] [address]Dr. Fred Jackson CO2 [Moles/Vol] 25.5 mmol/L Normal 21.0-32.0 [facility] [place] [facility] Comment on above: Performed By: #### T SH, CMP, BNP, CMADM ####[facility] [address] [address]Dr. Fred Jackson Creatinine [Mass/Vol] 0.95 mg/dL Normal 0.55-1.[address] [facility] Comment on above: Performed By: #### T SH, CMP, BNP, CMADM ####[facility] [address] [place], [place] [address]Dr. Fred Jackson EGFR-AF MALAYSIAN >60 Normal >=60 [facility] [place] [facility] Comment on above: Performed By: #### T SH, CMP, BNP, CMADM ####[facility] [address] [address]Dr. Fred Jackson EGFR-NON AF MALAYSIAN 58 mL/min/1.73m2 Critically low >=[address] [facility] Comment on above: Performed By: #### T SH, CMP, BNP, CMADM ####[facility] [address] [address]Dr. Fred Jackson Globulin (S) [Mass/Vol] 3.6 g/dL Normal [facility] Comment on above: Performed By: #### T SH, CMP, BNP, CMADM ####[facility] [address] [address]Dr. Fred Jackson Glucose [Mass/Vol] 116 mg/dL Critically high 74-[address] [facility] Comment on above: Performed By: #### T SH, CMP, BNP, CMADM ####[facility] [address] [place], [place] [address]Dr. Fred Jackson Potassium [Moles/Vol] 3.1 mmol/L Critically low 3.5-5.[address] [facility] Comment on above: Performed By: #### T SH, CMP, BNP, CMADM ####[facility] [address] [address]Dr. Fred Jackson Protein [Mass/Vol] 7.9 g/dL Normal 6.4-8.[address] [facility] Comment on above: Performed By: #### T SH, CMP, BNP, CMADM ####[facility] [address] [address]Dr. Fred Jackson Sodium [Moles/Vol] 130 mmol/L Critically low 136-[address] [facility] Comment on above: Performed By: #### T SH, CMP, BNP, CMADM ####[facility] [address] [address]Dr. Fred Jackson Urea nitrogen [Mass/Vol] 17.0 mg/dL Normal 7.0-18.[address] [facility] Comment on above: Performed By: #### T SH, CMP, BNP, CMADM ####[facility] [address] [address]Dr. Fred Jackson Urea nitrogen/Creatini ne [Mass ratio] 17.9 mg/mg Normal [facility] Comment on above: Performed By: #### T SH, CMP, BNP, CMADM ####[facility] [address] [address]Dr. Shivandana Jackson PROTIMEon 08-16-2022 INR Coag (PPP) [Relative time] 1.01 {INR} Normal [facility] Comment on above: Performed By: #### P TT, PT ####[facility] [address] [place], [place] [address]Dr. Shivandana Jackson INR GUIDELINES SEE BELOW Normal [facility] Comment on above: Result Comment: DOTTY RED INR: 2.0 - 3.0 CONDITIONS NOT LISTED BELOW 2.5 - 3.5 FOR PROSTHETIC HEART VALVE REPLACEMENT 2.5 - 3.5 RECURRENT THROMBOSIS Performed By: #### P TT, PT ####[facility] [address] [place], [place] [address]Dr. Fred Jackson PT Coag (PPP) [Time] 10.7 s Normal 9.0-11.[address] [facility] Comment on above: Performed By: #### P TT, PT ####[facility] [address] [place], [place] [address]Dr. Shivandana Jackson PTTon 08-16-2022 aPTT Coag (Bld) [Time] 33.9 s Normal 22.3-36.[address] [facility] Comment on above: Performed By: #### P TT, PT ####[facility] [address] [place], [place] [address]Dr. Fred Jackson TROPONIN, HIGH SENSITIVITYon 08-16-2022 HSTROP 15.1 pg/mL Normal 4.0-51.[address] [facility] Comment on above: Result Comment: CUT- OFF POINTS HAVE BEEN ESTABLISHED BASED ON THE FOURTH UNIVERSAL DEFINITIONS OF MYOCARDIAL INFARCTION. THE UPPER REFERENCE LIMIT (URL) OF TROPONIN, DEFINED THE 99TH PERCENTILE OF cTnI DISTRIBUTION IN A REFERENCE POPULATION, HAS BEEN CONFIRMED THE DECISION THRESHOLD FOR [place] DIAGNOSIS. Performed By: #### H STROPN #### [facility] [address] [place], [place] [address] Dr. Fred Jackson TSHon 08-16-2022 TSH 4.364 uIU/mL Critically high 0.358-3.740 [facility] Comment on above: Performed By: #### T SH, CMP, BNP, CMADM ####[facility] [address] [place], [place] [address]PwDr. Fred Jackson XR CHEST 1 Von 08-16-2022 [...] Date: 2022-08-16 00:02 Normal [facility] Covid-19 PCR (CVDTBH)on 03-06 SARS-CoV-2 (COVID-19) RNA VERONICA+probe Ql (Unsp spec) Detected Critically abnormal NOT DETECTED [facility] Comment on above: Result Comment: This test is not yet approved or cleared by the [place] FDA. When there are no FDA-approved or cleared tests available, and other criteria are met, FDA can make tests available under an emergency access mechanism called an Emergency Use Authorization (EUA). The EUA for this test is supported by the [employer] of Health and Human Service's (HHS's) declaration [...] longer be used). Performed By: #### C [facility] ####[id number] [place], [place] [address]OpCaroline Jackson US CAROTID ART BILon 022 US [...] TIFFANIE LEON Date: 2022-03-12 14:51 Normal [facility] MAMM SCREEN 3D JASMEET CADon 02-09-2022 MG MAMM SCREEN 3D JASMEET CAD Patient: SHARRI COONEY Exam Date: 02/09/2022 : 1950 Gender:F Ordering : DR RINKU PETERSON . Admission #: [id number] Family : Order #: [id number] CLICK HERE TO VIEW EXAM RADIOLOGY REPORT PROCEDURE: MAMMOGRAM SCREENING 3D BILATERAL CAD COMPARISON: MG MAMM SCREEN JASMEET W CAD, 02/02/2020. MAMM SCREEN 3D JASMEET CAD, 02/03/2021. INDICATIONS: Screening mammography Calculator Name NCI Breast Cancer Risk Assessment Tool 5 Year Breast Cancer Risk 1.70% Lifetime Breast Cancer Risk 5.10% Personal Breast Cancer No Personal Ovarian Cancer No Treatments None Family Cancers Father with prostate cancer at age 58. LOCATION: [facility] BREAST COMPOSITION: Heterogeneously dense,which may [...] 02/09/2022 at 09:50 Normal [facility] Coding Summary.on 03-12-2021 Coding Summary. [id number] G h0bWw+PGhlYWQ+MM5PLWK dH98zeQBboP6ZM1mQTQ0P QHFPTSVEZS1RHQ1cfVN3K UhlE8LsxoDk MylzbBJuUA91SEh4OUO4r DkqDIrnsO1fsRScH5n7Mk CeKM37nC03KEonKSZgVjD 3LjZpbjsgbWFy P8sdAbVrlPJkUcw+PHRhY mxlIHdpZHRoPScxMDAlJy DfwKnfJY7fWe2gWUFzOKQ vbGxhcHNlOiBj r1caUKZbKSjbHI5mwCvgZ 7GjuPZ4EIJfe5u7Uc43uP I+DEBhYJJ9mMeiJYuoc53 6GrEiu0gcSRI0 zRWtCKkyQJS3W36mk0J2X TGoJRPxKPB4pVP9iY6uuM txsxigJ3LncSQrAmN7VTJ 3fTYlsK6gaYsr rjohtZ4lTgb+E98BVM7EL HTMJO1ZOre3A1EbDnysfN I+HL47JXOeLJ11gHVhjMR yw4yjaRi8OfRl QXTvJZZ4gFrkHZgdj9CqY UHpY05kkNXbl8O4XLVstH tctPHvUhYavQV7bG9rVTy uwlqth3bfswiu Dbqwn4pghg34sF47W22zX GxwCHVkLFV2OUXvQKNjiO zxpf2jwF2oTj7+OScwh0q hw4shvAc8GrWw HTPvnsMaaTdwYXF1i4ZvF m92X8UnqZrpa6RyFwg0hc 47qWUvu4T9nNS7LCsbGKR jjG1vVSrpOiQ7 YCPbXbQfyN00qDDyQUyxN g8hxBqscMllRS5uAQXccz rcZPLauL5oTWKecZYlnTc sSX9sEUWvxicx y594HvFnLBX0YQCghVQcO 5EfxG1jEjSmTJJsHIGwT9 LlzGKmNIpwO907IKxsMdS 1MXMhbeJkU8Cd EGUmpNpsZmW4p6C3Ai5Gj 0XsaystIJB1YQtaUFX2Cv F3TpErTrW1M2EbAiz9LPX haXwkVP6fT8Au JTSwbjeaqvmauNP1NNXzN LSdcG19kDOaRXjoLj0um8 U7b107EJNyWHCenL33Ou7 udDogMTBwdCBU tQ2ndtcwh0dbxdnnScFrF XOxCBx4PNz0JCPrwUdiIg DnUBM0RhN1OAA1cBYikZ1 swUjumucbsA5f Oyc+G45thM8lCCB1UMP8r kqzONEjpxPeWU44LS93F2 RyPjwvdGFibGU+PGRpdiB peEtyRU1mAdRj j1npz3IvWUsjC1PaBRAqS PhrXnz1WQRaHOO1zZK2rZ 9vLBAqHPzjv1I7vUL1S9L cccWmwf4ml2oj JWNxXHlcG94pfKRls1X2G ARenWI2BFMroVsbOfTkkR 93Oyc+LXLtkAphy6StAbg vr0gsd6vjmNk8 PnRnMBIydfBksFriWQM8p 9HvTy09V05vTNhvEIJdKE DhWADmTJUjbLdehw3ktM1 wIi8+PGNvbCB3 hGJ4wN9fGXYgNaK7GXjvI 780UaDahERwEbeeu6foy5 dyfDh5OqVqJNAdzeUduIq fUMO6h4TqRx44 A15oTGrhUAKoCOYgJBOpK JNleQgcfr1bbD5wMh8+PC 3gm9motq45wY95pYF+PHR dAGB5fUwlXTeu BQQlmU2aQNzmPiW8VMUjN tWyaD00aUSdDDtaQe4gyT iwnYfeEI6wFECvpfuve01 2XuJyh8jwKGIt bGDzAPnsBJO3W76dg7E8W EXoMHDsLPC2nFZ9zO3jcD lnbjogbGVmdDsgdmVydGl sGJuuVYsnP293 IHRvcDsnPlBhdGllbnQgT gZsXHi7U1TeVbv4TJTtrU izOF8awOAeVSowGj5tsQo cqPzmPY7gPJHb harmc279XnKnk9wzKFTst UFqWFmtJTA6E69bp2E8YV UpHQRyLVB8tUH0qO4waEr nbjogbGVmdDsg zqUhzSwhFFqxNSvxJ717B HRvcDsnPkJpcnRoIERhdG Z3QF54JI53eMBvf0H2lIO 5Q1ArDABktjpt fctsnMB5YQDcIGTamH05I b4zwZvsHi6uWMFtLSW3MS XklDUfR2XwfD5wPxTrHDA uTYGrT9AcvARx SJatW050MCmbIeQ7HDIdv kIxS2AtDWZimUirUoO7y1 G2Sx2KC8S7UP95VV04sQO vh6S3zPN5V6Ul WREjbbbddbtupHI3KBQxG SZgiR61Ka1xtHclGe5wAN GdJGW0QYHwmQMeZ1CtmW0 yOiAjMDAwMDAw K8UnlHKxYCblM663JEibS lU2EUCdhqXpG8BfGJBzgR dqIkX0i7M5Xu5SEBx2PA8 9DU45uTZhm4M0 yZT8E8TmRHCdehkskufkp PS2JTIiHYGupJ89Nm8olH mgCv8dCSRsGHG9BGXaiCK eQ0XcjF7gTtQn FMXtOUHzU1ZugFHzLUfcJ 477QBbuGoP7CTEsxqXqQ4 IvOKTqnTcaLtH8k8O7Tk2 ZBDGiNM46RHA5 lSM0LZ45XW31J6DqFishu GFibGU+PHRhYmxlIHdpZH RoPScxMDAlJyBzdHlsZT0 gBg1gHSCjPVPe kXydlZVvYsZvf7hnDWKbQ TigLW1juAibT7CwnLN8JA Wwp5r4Ex60T31lJ5DavZE +PAErvUF3mTZ6 mH6zXaWtMtE0YXcoI898U vUeaUQxAkbpx9qgg3dseE m7TmF8TQQbzaLkiNyxITJ 3k5MzUd74K25f IHdpZHRoPSIxNSUiIHZhb Jtmak7jfR4aKx7+PGNvbC A4sHB7tH8lZvBuUzP8SBl kE168FqHmhFZe Ceshv5erf2tpoLv2VrZzS PLdteDeeQspNHI3j5UvTi 89F6VxbVnpt2AtHts1ok2 8yHTnf3P9hVZ9 O8HrBGCfpctvuOTkeEdkX S8tWTXwsalzKPNooX5vIV CbO3m2VsNgSgD4XAxhM5M nxcF1OFWnhCWs OZlrATO2S20ol7R3LCBzN AOjMWA1zGL3mI2csWykkc ogbGVmdDsgdmVydGljYWw cMMcaN871ITGd tSmrXRHtcC1dLFDrrACrv HcpPJ2aGAYpqrkbVyPVIk CDUZnqLVMRCdHGZcT9Y2L jMlt0BBSqzLyz XP6uuOPlCIhxNj3oqLoeg NqhLF7yTHXhmtxwSFOqhJ 7dRMUxmHKjrYtjLS6rDKH tvwlaw225YpUk MCY7CRFhiXZvK8WmvN2xY aPvNPAyFGHwO8GxmXEpFC zvU214XVsfSwM2ECTepaP iS4AkHKTfiQsp FlU1v7U2Gq9cUb7sUZ0sR UTnCM55OM53cAIpn7Q5yR H9F5AqSYRejiylrbhodKI 4RKWkWUMxoU65 lZVpCVrfFh5pt5X7q634H CJtWPHrsV47Jy1rxBtyTO GjcLAKsH2ewtcpb0hqaao gIzAwMDAwMDt0 BLx4DUCmiAhnQnRwAPT9Z uC0CQF0vATbtQ6lgDjtlc zvbS9bOrl+NjggWWVhcnM 9I3LsLfd8FRTl nDkkNC8hnLVxDGtuOl4xm VapyIgpZH0mEFUiyjubDM FezN6iRHSejVWfcCmpJV2 lLHZnecsxc623 LlMoQOW5DWXnvEJhK5Xhe V8jJsQyDSFgSGHkD6XwwT YkAWhtI087GDprMfN4XCF hmmXyY1PgIMTh zJxwIaZ3u8T2Li7MBQ8hl FG3L3LjSif1EKQwyVinST 8ilJKqLSqdUb2rmHllaXs sGD2rGZNsompw TSAhhP5kDDGjnJFspLtnD R6kTJUssspba568CuNnLC S3YWXbpDMyV2SwyA3vNiX aIXJzNSHbO0An oIWnIIbcH456JBbnSeU6O XToaiAcN8NhJILrbDodIn Q5o6F3Yp6RKSLrFAWmjXX sEvS7E4RwKmqw dHI+LR46TKQbSY75zZOck ELqk4hlnHu1AkIiELKqPO L1aRwyHJhlj8GtQHYeG33 sgHHob1E7ZWNu pOnguLEtEnKnmJB5aA9pW Ltvlroyr8mjnvkxCsacx6 zmve82vN11P37xOEeyIFU oPSIzMCUiIHZh xWpakm1rwL2nZu1+PGNvb CH7eKA2oH4wAcSjTrH7XG ziI501MzEjfZZvYbklp3s cw7snqZa3FuWk LOQoixTxqBarCOG4j0HfA l28U21mHBheWFHoDHHaJX OoGSVhiMeslu6tbC4pGl2 +FO4fm9wbov23 tQ74gTG+IYQkIXD2cFnpY PzsWYIfrI5vIWjuEoH3XI NgRxTadL91dOYoBCgkCv6 wnWzfbFtgUX7x QXVryhpwn845MbKhi1wjO ZUpyFOaSDoxBCO9E56ok6 T0YIXgGXPhGQS1gTN7lK6 hbGlnbjogbGVm dDsgdmVydGljYWwtYWxpZ 006TAOggCrpRbKbzLYlD9 hlsjSIHF5uVkbapGY+PHR nCEA9yDpdWKwi NLCgsP2sRTVtT9h4FfWyG sN3AAprK6MpcbN5LLToeU TaPSInvRIZfQ9kgomtm3e vcjogIzAwMDAw MEk4XQc6QWJqbCmcTlGlJ ET3WwF9WYR3tUSfhV5whC tennoehX9eTep+RklOOjw vdGQ+PHRkIHN0 hMlhNGjgZFUyvN0nHQPxR 3g7KwLcSjC4NElcO6Lwwz B3DQNubWArFMRftLFTrM2 vwxbey2pkzqzv WuJgAPVuCVo7GBq7RFFcz HfwEnYkUFO7QcN6IBR2sU FdtP4hhJeryjkixJ1wBfw +TVJOOjwvdGQ+ QWNoEYW6pZfoYGfyXKWqi C3nIVRgI9l4OwZtWiK4NJ jmP7RbkcL7EZGdlQHjAHA jvYZHoP5xkjka w3secdfrDmHgUJGmGWt3I Hw4JWDhkKvqGrShWUQ0Do M7DAO7zKZojL6gbOfpdww esV4rCvt+UGF5 SIL3UU17TZ93S8SbDhszm GFibGU+PHRhYmxlIHdpZH RoPScxMDAlJyBzdHlsZT0 jVu9lOKLdZOSe bGxh (more content not included)... Normal [facility] Physician Orderon 02-19-2021 Physician Order [id number]# 1.00CD:127 [facility] Vital Signs Date Time Vital Sign Value Performing Clinician Facility 06-05-2024 11:30-0500 Body mass index (BMI) [Ratio] 26.25 kg/m2 [facility] Work Phone: [facility] 06-05-2024 11:30-0500 Body weight 60.96 kg [facility] Work Phone: [facility] 06-05-2024 11:30-0500 Diastolic blood pressure 80 mm[Hg] [facility] 06-05-2024 11:30-0500 Systolic blood pressure 130 mm[Hg] [facility] Work Phone: [facility] 04-22-2023 12:20-0400 Body height 153.67 cm Broderick Salamancaaker Other [facility] Other 04-22-2023 12:20-0400 Body mass index (BMI) [Ratio] 24.58 kg/m2 Broderick Solomon Other [facility] Other 04-22-2023 12:20-0400 Body temperature 98.3 [degF] Broderick Solomon Other [facility] Other 04-22-2023 12:20-0400 Body weight 58.06 kg Broderick Solomon Other [facility] Other 04-22-2023 12:20-0400 Respiratory rate 18 /min Broderick Solomon Other [facility] Other 04-22-2023 12:20-0400 SaO2% (BldA) [Mass fraction] 96 % Broderick Solomon Other [facility] Other Encounters Encounter Date Encounter Type Care Provider Facility Start: 06-05-2024 End: 06-05-2024 Bamboo flowsheet Theo Jil DO Work Phone: [facility] Start: 06-05-2024 End: 06-05-2024 Bamboo flowsheet Theo Jil DO Work Phone: [facility] Start: 06-05-2024 End: 06-05-2024 Patient encounter procedure Theo Jil DO Work Phone: [facility] Work Phone: Start: 06-05-2024 End: 06-05-2024 Periodic preventive med est patient 65yrs& older Theo Jil DO Work Phone: [facility] Comment on above: Well woman exam with routine gynecological exam; Breast cancer screening by mammogram; Postmenopausal state Start: 05-30-2024 End: 05-30-2024 Bamboo flowsheet Amberly Galvin OT Work Phone: [facility] Start: 05-30-2024 End: 05-30-2024 Bamboo flowsheet Amberly Galvin OT Work Phone: [facility] Start: 05-30-2024 End: 05-30-2024 ambulatory Amberly Galvin OT Work Phone: [facility] Comment on above: Left wrist pain (Erica jerardo Dx); Oth intartic fracture of lower end of left radius, init Start: 05-26-2024 End: 05-26-2024 Bamboo ricardo Galvin OT Work Phone: [facility] Start: 05-26-2024 End: 05-26-2024 Bamboo ricardo Galvin OT Work Phone: [facility] Start: 05-26-2024 End: 05-26-2024 ambulatory Amberly Galvin OT Work Phone: [facility] Comment on above: Left wrist pain (Erica jerardo Dx); Oth intartic fracture of lower end of left radius, init Start: 05-24-2024 ambulatory [facility] Start: 05-23-2024 End: 05-23-2024 Bamboo ricardo Galvin OT Work Phone: [facility] Start: 05-23-2024 End: 05-23-2024 Bamboo ricardo Galvin OT Work Phone: [facility] Start: 05-23-2024 End: 05-23-2024 ambulatory Amberly Galvin OT Work Phone: [facility] Comment on above: Left wrist pain (Erica jerardo Dx); Oth intartic fracture of lower end of left radius, init Start: 05-19-2024 End: 05-19-2024 Bamboo ricardo Galvin OT Work Phone: [facility] Start: 05-19-2024 End: 05-19-2024 Bamboo ricardo Galvin OT Work Phone: [facility] Start: 05-19-2024 End: 05-19-2024 ambulatory Amberly Galvin OT Work Phone: [facility] Comment on above: Left wrist pain (Erica jerardo Dx); Oth intartic fracture of lower end of left radius, init Start: 05-16-2024 End: 05-16-2024 ambulatory Amberly Galvin OT Work Phone: [facility] Comment on above: Left wrist pain (Erica jerardo Dx); Oth intartic fracture of lower end of left radius, init Start: 05-09-2024 End: 05-09-2024 ambulatory Amberly Galvin OT Work Phone: [facility] Comment on above: 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, init (Primary Dx); Left wrist pain Start: 05-08-2024 ambulatory [facility] Start: 04-26-2024 ambulatory [facility] Start: 03-31-2024 ambulatory [facility] Start: 03-08-2024 End: 03-08-2024 ambulatory RYAN RUIZ Not Available Start: 02-01-2024 End: 02-01-2024 ambulatory [facility] Start: 01-13-2024 End: 01-13-2024 ambulatory [facility] Start: 12-10-2023 End: 12-10-2023 ambulatory [facility] Start: 12-06-2023 End: 12-06-2023 ambulatory RYAN RUIZ Not Available Start: 11-24-2023 End: 11-24-2023 ambulatory [facility] Start: 11-03-2023 ambulatory [facility] Start: 10-28-2023 End: 10-28-2023 ambulatory [facility] Start: 06-04-2023 End: 06-04-2023 ambulatory [facility] Start: 04-22-2023 End: 04-22-2023 ambulatory Broderick Solomon Other [facility] Other Start: 04-22-2023 Office outpatient vi sit 15 minutes Broderick Solomon [facility] Start: 10-23-2022 End: 10-24-2022 [...] 02-10-[address] RINKU PETERSON . Facility:[facility] Procedures Date Procedure Procedure Detail Performing Clinician Start: 02-18-2024 Mammography Amberly zimmerman OT Work Phone: Plan of Treatment Date Care Activity Detail Author Start: 06-07-2025 End: 06-07-2025 Patient encounter procedure 06/07/2025 9:00 AM EST Office Visit [facility] [address] [id number] Laura Jones PA [address] [place] [address] [facility] Start: 06-05-2025 Medicare Annual Wellness (AWV) Medicare Annual Wellness (AWV) [facility] Start: 02-17-2025 Screening for malign ant neoplasm of breast Mammogram [facility] Start: 09-06-2024 End: 09-06-2024 Patient encounter procedure 09/06/2024 8:30 AM EST Office Visit [facility] [address] [facility] [address] [place] [address] Ryan Ruiz MD [address] [facility] [address] [place] [address] [facility] Start: 06-05-2024 End: 06-05-2025 DXA Skeletal system Views for bone density DEXA bone density Imaging Routine Postmenopausal state Expected: 06/05/2024 (Approximate), Expires: 06/05/2025 [facility] Comment on above: Expected: 06/05/2024 (Approximate), Expires: 06/05/2025 Start: 06-05-2024 End: 08-06-2025 MG Breast - bilateral Screening Bilateral screening mammogram Imaging Routine Breast cancer screening by mammogram Expected: 06/05/2024, Expires: 08/06/2025 [facility] Work Phone: Comment on above: Expected: 06/05/2024 , Expires: 08/06/2025 Start: 06-05-2024 End: 06-05-2024 Patient encounter procedure [facility] Comment on above: Arrived Start: 06-01-2024 Medicare Annual Wellness (AWV) Medicare Annual Wellness (AWV) [facility] Start: 05-30-2024 End: 05-30-2024 ambulatory 05/30/2024 11:00 AM EST Treatment [facility] [address] [place] [address] Amberly Galvin, OT [address] [place] [address] [facility] Start: 05-26-2024 End: 05-26-2024 ambulatory [facility] Comment on above: Arrived Start: 05-23-2024 End: 05-23-2024 ambulatory 05/23/2024 11:00 AM EST Treatment [facility] [address] [place] [address] Amberly Galvin, OT [address] [place] [address] [facility] Start: 05-19-2024 End: 05-19-2024 ambulatory 05/19/2024 11:00 AM EST Treatment [facility] [address] [place] [address] Shannan Galvinney, OT [address] [place] [address] [facility] Start: 05-16-2024 End: 05-16-2024 ambulatory 05/16/2024 2:00 PM EST Treatment [facility] [address] [facility] [address] [place] [address] Amberly Galvin, OT [address] [place] [address] [facility] Start: 03-05-2024 Influenza vaccination Influenza Vacc ine (#1) [facility] Start: 2017 Pneumococcal Vaccine : 65+ Years (1 of 1 - PCV) Pneumococcal Vaccine: 65+ Years (1 of 1 - PCV) [facility] Start: 1958 Pneumococcal Vaccine : 65+ Years (1 of 2 - PCV) Pneumococcal Vaccine: 65+ Years (1 of 2 - PCV) [facility] Start: 1952 Screening for malign ant neoplasm of colon [facility] THIN PREP TIS PAP AN D HR HPV DNA THIN PREP TIS PAP AND HR HPV DNA Pathology and Cytology Routine Well woman exam with routine gynecological exam Ordered: 06/05/2024 [facility] Comment on above: Ordered: 06/05/2024 Immunizations Immunization Date Immunization Notes Care Provider Henry greenberg 12-19-2016 tetanus toxoid, reduced diphtheria toxoid, and acellular pertussis vaccine, adsorbed Broderick Solomon Other [employer] Other Payers Date Payer Category Payer Medicaid [employer] MED[employer]ARE A DVANTAGE [id number] 1957 Medicare [id number] 1952 Unknown [id number] 2.16.840.1.585700.3.579.2.593 1952 Unknown [id number] 2.16.840.1.031727.3.579.2.593 1952 Unknown [id number] 2.16.840.1.297358.3.579.2.593 1952 Unknown [id number] 2.16.840.1.968748.3.579.2.593 1952 Unknown [id number] 2.16.840.1.679058.3.579.2.593 1952 Unknown [id number] 2.16.840.1.431615.3.579.2.593 1952 Unknown [id number] 2.16.840.1.459877.3.579.2.593 1952 Unknown [id number] 2.16.840.1.340090.3.579.2.1259 1952 Unknown [id number] 2.16.840.1.651472.3.579.2.1259 1952 Unknown [id number] 2.16.840.1.194802.3.579.2.1259 1952 Unknown [id number] 2.16.840.1.388237.3.579.2.1259 1952 Unknown [id number] 2.16.840.1.754411.3.579.2.1259 1952 Unknown [id number] 2.16.840.1.240338.3.579.2.1259 1952 Unknown [id number] 1950 Unknown [id number] Social History Date Type Detail Facility Unknown if ever smoked [facility] Other Start: 03-08-2024 Sex Assigned At [facility] Other Start: 12-31-2022 Tobacco smoking status NHIS Never smoked tobacco [facility] Start: 12-31-2022 Tobacco use and exposure Smokeless tobacco non-user [facility] Start: 03-08-2024 End: 06-05-2024 Alcoholic beverage intake Lifetime non-drinker (finding) [facility] Start: 03-08-2024 History of Social function [facility] Start: 1950 Sex assigned at Female [facility] Start: 12-25-2023 Gender identity Identifies as female gender (finding) [facility] NEGATED: Highlighted rowStart: LETHA History of tobacco use Passive smoker [facility] Clinical Notes 04-22-2023 to 06-05-2024 Laura Jones PA - 06/05/2024 11:00 AM Navjot Galvin, OT - 05/30/2024 11:00 AM Navjot Galvin, OT - 05/26/2024 11:00 AM Navjot Galvin, OT - 05/23/2024 11:00 AM EST Note Date & Type Note Facility 06-05-2024 History of Present illness Narrative Reason for Appointment: Patient ID: Sharri Cooney is a 73 y.o. female who presents for Well Women Visit Patient presents today for Annual Exam. MEDICATIONS Current Outpatient Medications Medication Instructions apixaban (Eliquis) 5 MG tablet 1 tablet, 2 times daily Calcium 600-5 MG-MCG tablet Take by mouth Cholecalciferol (Vitamin D) 10 MCG/ML liquid Take by mouth Cranberry 500 MG capsule Take by mouth lisinopril-hydroCHLOROthiazide 10-12.5 MG tablet 1 tablet, Daily Magnesium Oxide -Mg Supplement 400 MG capsule metoprolol succinate XL (TOPROL-XL) 50 mg, Daily potassium chloride CR (Klor-Con) 10 MEQ ER tablet 10 mEq, Daily sertraline (ZOLOFT) 50 mg, Daily simvastatin (ZOCOR) 10 mg, Daily ALLERGIES Allergies Allergen Reactions Sulfa Antibiotics Unknown Other Reaction(s): Not available CYANOSIS Ciprofloxacin Other Reaction(s): Other Patient states 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 Sulfacetamide Hives PROBLEMS Active Ambulatory Problems Diagnosis Date Noted Anxiety disorder, unspecified 10/28/2023 Atrial fibrillation (CMS/HCC) 02/24/2021 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/HCC) 10/29/2023 Essential hypertension (CMS/HCC) 12/30/2022 Hypokalemia 10/29/2023 Hypomagnesemia 10/29/2023 Mass of left adrenal gland (CMS/HCC) 12/30/2022 Mixed hyperlipidemia (CMS/HCC) 10/29/2023 Nonrheumatic mitral valve regurgitation 12/30/2022 Pulmonary hypertension (CMS/HCC) 12/06/2023 Osteopenia of multiple sites 12/06/2023 Nonobstructive atherosclerosis of coronary artery ([facility]/HCC) 03/08/2024 Oth intartic fracture of lower end of left radius, init 05/09/2024 Left wrist pain 05/09/2024 Resolved Ambulatory Problems Diagnosis Date Noted No Resolved Ambulatory Problems Past Medical History: Diagnosis Date Guillain Jarquin syndrome (CMS/HCC) Hypertension (CMS/HCC) HISTORY PAST MEDICAL HISTORY SOCIAL HISTORY Past Medical History: Diagnosis Date Guillain Jarquin syndrome (CMS/HCC) Hypertension (CMS/HCC) Social History Tobacco Use Smoking status: Never Passive exposure: Never Smokeless tobacco: Never Substance Use Topics Alcohol use: Never Drug use: Never FAMILY HISTORY Family History Problem Relation Name Age of Onset Aneurysm Mother Hypertension Mother Cancer Father SURGICAL HISTORY Past Surgical History: Procedure Laterality Date BREAST SURGERY Left cyst removal BUNIONECTOMY EYE SURGERY LOOP RECORDER IMPLANT Left 11/25/2023 TUBAL LIGATION REVIEW OF SYSTEMS Review of Systems: Review of Systems All other systems reviewed and are negative. OBJECTIVE Objective: Physical Exam Constitutional: Appearance: Normal appearance. She is well-developed. Genitourinary: Vulva normal. Breasts: Right: Normal. Left: Normal. Cardiovascular: Rate and Rhythm: Normal rate and regular rhythm. Pulmonary: Effort: Pulmonary effort is normal. Breath sounds: Normal breath sounds. Abdominal: General: Bowel sounds are normal. There is no distension. Palpations: Abdomen is soft. Tenderness: There is no abdominal tenderness. There is no guarding or rebound. Musculoskeletal: General: No swelling. Normal range of motion. Right lower leg: No edema. Left lower leg: No edema. Neurological: Mental Status: She is alert and oriented to person, place, and time. Skin: General: Skin is warm and dry. Psychiatric: Mood and Affect: Mood normal. Behavior: Behavior normal. Vitals and nursing note reviewed. Exam conducted with a applications consultant present. Vitals: Estimated body mass index is 26.25 kg/m as calculated from the following: Height as of 03/08/24: 5'. Weight as of this encounter: 134 lb 6.4 oz. BP: 130/80 No LMP recorded. ASSESSMENT & PLAN ICD-10-CM 1. Well woman exam with routine gynecological exam Z01.419 THIN PREP TIS PAP AND HR HPV DNA 2. Breast cancer screening by mammogram Z12.31 Bilateral screening mammogram Bilateral screening mammogram 3. Postmenopausal state Z78.0 DEXA bone density Annual Exam: Patient presents today for an annual exam. Patient states she is doing well and has no complaints. Pap was obtained without difficulty. Orders Placed This Encounter Procedures Bilateral screening mammogram DEXA bone density Follow Up: Patient is to return in one year for annual unless needed otherwise. Documented by DONNA Good on behalf of: Theo Ley DO documented in this encounter [facility] 05-30-2024 History of Present illness Narrative Occupational Therapy Occupational Therapy Treatment Visit Patient Name: Sharri Cooney Today's Date: 05/30/2024 Linked Episodes Type: Episode: Status: Noted: Resolved: Last update: Updated by: Occupational Therapy L wrist fx Active 05/09/2024 05/30/2024 1:40 PM Amberly Galvin OT Comments: Visit number: 12/14 Timed Code Treatment minutes: 57 Total Treatment Time: 57 Subjective Pain: 2/10. No pain. Still a little uncomfortable when I turn it the wrong way but I can do everything I need to Overall progress:improving Objective: 30' - extended MT complete to wrist/forearm for pain management. Gentle stretching for finger and wrist flexion/extension. Intrinsic stretch x5 to each digit. LLPS increased to 3# handweight flex/extension x2 minutes. light manual resistance for wrist flex/extension 1x20 with good toleration. 30' Fluido complete x10 minutes for tissue preconditioning/ supervised KAI. AAROM x20 to all wrist and thumb planes. AROM for sup/pro/flex/extension and UD/RD. Weight added 2# 1x20 fatigue evident. MRE for AB/ADD x25 of each for intrinsic strengthening. Therabar for wrist strengthening red in 4 positions.UD/RD complete increased to 3# handweight complete. T-putty for added mica laminating machine feeder strengthening complete with good toleration. Encouraged ice/ biofreeze for soreness at night. Pt verbalized understanding of all education. Treatment: Manual: STM/ DTM along the L wrist Therapeutic Exercise: light strengthening of the wrist/forearm. Therapeutic Activity: Modalities: Neuro Re-Ed: Assessment/Plan Pt tolerated session well. Fatigue with all exercises with added resistance. Able to increase to 3# for PRE's. OT remains necessary to continue to increase wrist/ forearm strength in order to complete all I/ADL tasks pain free at discharge. P : Continue with POC, progress per toleration. documented in this encounter [facility] 05-26-2024 History of Present illness Narrative Occupational Therapy Occupational Therapy Treatment Visit Patient Name: Sharri Cooney Today's Date: 05/26/2024 Linked Episodes Type: Episode: Status: Noted: Resolved: Last update: Updated by: Occupational Therapy L wrist fx Active 05/09/2024 05/26/2024 11:02 AM Amberly Galvin OT Comments: Visit number: 11/13 Timed Code Treatment minutes: 60 Total Treatment Time: 60 Subjective Pain: 2/10. It is feeling good today. 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 Overall progress:improving Objective: 30' - extended MT complete to wrist/forearm for pain management. Gentle stretching for finger and wrist flexion/extension. Intrinsic stretch x5 to each digit. LLPS with 2# handweight flex/extension x2 minutes. light manual resistance for wrist flex/extension 1x20 with good toleration. 30' Fluido complete x10 minutes for tissue preconditioning/ supervised KAI. AAROM x20 to all wrist and thumb planes. AROM for sup/pro/flex/extension and UD/RD. Weight added 2# 1x20 fatigue evident. MRE for AB/ADD x25 of each for intrinsic strengthening. Therabar for wrist strengthening red in 4 positions.UD/RD complete increased to 2# handweight complete. T-putty for added mica laminating machine feeder strengthening complete with good toleration. Encouraged ice/ biofreeze for soreness at night. Pt verbalized understanding of all education. Treatment: Manual: STM/ DTM along the L wrist Therapeutic Exercise: light strengthening of the wrist/forearm. Therapeutic Activity: Modalities: Neuro Re-Ed: Assessment/Plan Pt tolerated session well. Fatigue with all exercises with added resistance. OT remains necessary to continue to increase wrist/ forearm strength in order to complete all I/ADL tasks pain free at discharge. P : Continue with POC, progress per toleration. documented in this encounter [facility] 05-23-2024 History of Present illness Narrative Occupational Therapy Occupational Therapy Treatment Visit Patient Name: Sharri Cooney Today's Date: 05/23/2024 Linked Episodes Type: Episode: Status: Noted: Resolved: Last update: Updated by: Occupational Therapy L wrist fx Active 05/09/2024 05/23/2024 12:54 PM Amberly Galvin OT Comments: Visit number: 10/14 Timed Code Treatment minutes: 60 Total Treatment Time: 60 Subjective Pain: 10. I carried all my [place] totes up and was surprised I could do it. It felt fine. I did wear my brace though Overall progress:improving Objective: 30' - extended MT complete to wrist/forearm for pain management. Gentle stretching for finger and wrist flexion/extension. Intrinsic stretch x5 to each digit. LLPS with 2# handweight flex/extension x2 minutes. light manual resistance for wrist flex/extension 1x20 with good toleration. 30' Fluido complete x10 minutes for tissue preconditioning/ supervised KAI. AAROM x20 to all wrist and thumb planes. AROM for sup/pro/flex/extension and UD/RD. Weight added 2# 1x20 fatigue evident. MRE for AB/ADD x25 of each for intrinsic strengthening. Therabar for wrist strengthening red in 4 positions.UD/RD complete increased to 2# handweight complete. T-putty for added mica laminating machine feeder strengthening complete with good toleration. Trialed weightbearing to L wrist with good toleration at end of session. Encouraged ice/ biofreeze for soreness at night. Pt verbalized understanding of all education. Treatment: Manual: STM/ DTM along the L wrist Therapeutic Exercise: light strengthening of the wrist/forearm. Therapeutic Activity: Modalities: Neuro Re-Ed: Assessment/Plan Pt tolerated session well. Fatigue with all exercises with added resistance. OT remains necessary to continue to increase wrist/ forearm strength in order to complete all I/ADL tasks pain free at discharge. P : Continue with POC, progress per toleration. documented in this encounter [facility] 05-19-2024 History of Present illness Narrative Occupational Therapy Occupational Therapy Treatment Visit Patient Name: Sharri Cooney Today's Date: 05/19/2024 Linked Episodes Type: Episode: Status: Noted: Resolved: Last update: Updated by: Occupational Therapy L wrist fx Active 05/09/2024 05/19/2024 11:21 AM Amberly Galvin OT Comments: Visit number: 09/13 Timed Code Treatment minutes: 60 Total Treatment Time: 60 Subjective Pain: 10. I have been able to do more stuff. Able to button my pants today and pull open door. Still having difficulty with the cracking and popping in my wrist. I peeled 4 potatoes yesterday but had my brace on. It gets sore on the other side of my wrist Reports majority of pain to the ulnar side of wrist. Overall progress:improving Objective: 30' - extended MT complete to wrist/forearm for pain management. Gentle stretching for finger and wrist flexion/extension. Intrinsic stretch x5 to each digit. LLPS with 2# handweight flex/extension x2 minutes. light manual resistance for wrist flex/extension 1x20 with good toleration. 30' Fluido complete x10 minutes for tissue preconditioning/ supervised KAI. AAROM x20 to all wrist and thumb planes. AROM for sup/pro/flex/extension and UD/RD. Weight added 2# 1x20 fatigue evident. MRE for AB/ADD x25 of each for intrinsic strengthening. Therabar for wrist strengthening red in 4 positions.UD/RD complete increased to 2# handweight complete. T-putty for added mica laminating machine feeder strengthening complete with good toleration. Trialed weightbearing to L wrist with good toleration at end of session. Encouraged ice/ biofreeze for soreness at night. Pt verbalized understanding of all education. Treatment: Manual: STM/ DTM along the L wrist Therapeutic Exercise: light strengthening of the wrist/forearm. Therapeutic Activity: Modalities: Neuro Re-Ed: Assessment/Plan Pt tolerated session well. Fatigue with all exercises with added resistance. OT remains necessary to continue to increase wrist/ forearm strength in order to complete all I/ADL tasks pain free at discharge. P : Continue with POC, progress per toleration. documented in this encounter [facility] 05-16-2024 History of Present illness Narrative Occupational Therapy Occupational Therapy Treatment Visit Patient Name: Sharri Cooney Today's Date: 05/16/2024 Linked Episodes Type: Episode: Status: Noted: Resolved: Last update: Updated by: Occupational Therapy L wrist fx Active 05/09/2024 05/16/2024 1:54 PM Amberly Galvin OT Comments: Visit number: 08/16 Timed Code Treatment minutes: 60 Total Treatment Time: 60 Subjective Pain: 2/10. It hurts on the opposite side of my hand when I do stuff. Not bad just sore Overall progress:improving Objective: 30' - extended MT complete to wrist/forearm for pain management. Gentle stretching for finger and wrist flexion/extension. Intrinsic stretch x5 to each digit. LLPS with 2# handweight flex/extension x2 minutes. light manual resistance for wrist flex/extension 1x20 with good toleration. 30' Fluido complete x10 minutes for tissue preconditioning/ supervised KAI. AAROM x20 to all wrist and thumb planes. AROM for sup/pro/flex/extension and UD/RD. Weight added 2# 1x20 fatigue evident. MRE for AB/ADD x25 of each for intrinsic strengthening. Therabar for wrist strengthening red in 4 positions.UD/RD complete increased to 2# handweight complete. T-putty for added mica laminating machine feeder strengthening complete with good toleration. Trialed weightbearing to L wrist with good toleration at end of session. Encouraged ice/ biofreeze for soreness at night. Pt verbalized understanding of all education. Treatment: Manual: STM/ DTM along the L wrist Therapeutic Exercise: light strengthening of the wrist/forearm. Therapeutic Activity: Modalities: Neuro Re-Ed: Assessment/Plan Pt tolerated session well. Fatigue with all exercises with added resistance. OT remains necessary to continue to increase wrist/ forearm strength in order to complete all I/ADL tasks pain free at discharge. P : Continue with POC, progress per toleration. documented in this encounter [facility] 05-09-2024 History of Present illness Narrative Occupational Therapy Occupational Therapy Evaluation Visit Patient Name: Sharri Cooney Today's Date: 05/09/2024 Linked Episodes Type: Episode: Status: Noted: Resolved: Last update: Updated by: Occupational Therapy L wrist fx Active 05/09/2024 05/09/2024 3:52 PM Amberly Galvin OT Comments: Visit number: 07/12 Subjective Interim History: 73 y/o female presents status post fall resulting in a left radius fracture. No surgery required. Cast was removed yesterday 05/08/24. Was given soft removable cast to wear if doing repetitive activity. States I have really been moving it as much as I possibly can in/out of cast . Extension is main deficit at this time. Pain: Pain up to a 4/10 at worst and 0/10 at rest. Is no longer taking anything for pain. Imaging: Stable healing complex intra-articular distal radius fracture with interval increase in overall sclerosis. No change in angulation or distraction. Moderate degenerative changes with joint space narrowing. SOFT TISSUES:Negative. No visible soft tissue swelling. EFFUSION:None visible. OTHER: Negative. Prior Level of Function:I with all self-care and functional mobility. Precautions: 6 weeks s/p distal radius fx. Objective PRWHE Pain Score: 13/50 PRWHE Functional Score: 7/100 Hand/Wrist Musculoskeletal Exam Inspection Right Erythema: none Ecchymosis: none Edema: none Deformity: none Palpation Right Wrist tenderness to palpation: radial carpal joint Range of Motion Right Wrist Active extension: 45. Active flexion: 52. Active Radial Deviation: 15 Active Ulnar Deviation: 30 Range of motion additional comments: L wrist ROTHMAN: 71% Strength Right Wrist Extension: 4-/5. Flexion: 4/5. Radial deviation: 4/5. Ulnar deviation: 4/5. Pronation: 4/5. Supination: 4/5. L mica laminating machine feeder strength: 6# LP: 2# R mica laminating machine feeder strength: 35# LP: 9# Treatment: Education: HEP education with demonstration, Educated on Eval Findings and POC Manual Therapy: Passive ROM, Joint mobilization, Soft Tissue Mobilization, Myofascial Release, Neural Mobilization, Myofascial Cupping, Dry Needling, and IASTM Therapeutic Exercise: Strength, Endurance, Flexibility, ROM, HEP, and Power Therapeutic Activity: Exercises to improve dynamic activities, functional tasks, functional mobility to return to prior activity level Neuromuscular re-education: Muscle Facilitation and Dynamic Stability Modalities: Heat, Ice, Electrical Stimulation, Ultrasound, Iontophoresis, and Fluidotherapy Today: Fluido x10 minutes for supervised KAI and tissue preconditioning. STM. DTM along the wrist, hand, and forearm with stretching complete in all wrist planes x1 minute holds. HEP established to maximize ROM. Written handout provided. Pt verbalizing understanding and is agreement to POC. Assessment/Plan Short Term Goals: Pt will be independent with home exercise program for light strengthening and ROM at discharge. [employer] Work[employer] Goals: PRWHE Pain Score < 5/50 ( IE: 13/50) PRWHE Functional Score <3/100 ( IE: 7/100 ) Increase wrist ROTHMAN to at least 90% pain free at discharge. (IE: 71%) Pt to increase mica laminating machine feeder strength by 10# and LP by 2# pain free at discharge. ( L hand 6# LP: 2# ) Pt will be able to use ;eft UE in light daily activities. Pt will benefit from skilled OT to address the above impairments for 2x/week for 4 weeks. I hereby deem this POC medically necessary. Please sign below. Date: documented in this encounter [facility] 02-01-2024 Note Patient here for [facility] low up heart cath with Dr. Peter on 01/13/2024. Says she's been feeling good. Denies chest pain, SOB, palpitations, lightheadedness/syncope, and bleeding on Eliquis. BP's from home are low at times. Review of Systems All other systems reviewed and are negative. [facility] 02-01-2024 Note [place] Electrophysiology Consult Note Reason for visit: PAF/MR/HTN/HLD [...] or signs patient was recently seen in [place] ED 08/2022 for palpitations. She was found [...] palpitations, lightness, dizziness, fatigue 08/20[facility]- appears to be sinus tach with [...] alcohol infrequently, no significant caffeine intake, no ltfc-[id number] decongestions Family history: Her mother of a brain aneurysm, no history of premature coronary artery disease, no history of arrhythmias Medications: Eliquis 5 mg p.o. twice daily, lisinopril 10/hydrochlorothiazide 12.5 mg daily, Toprol-XL 50 mg daily, Zocor 10 mg daily -- 03/03/[address] Mehdi estevez?herb; Afib H?PI: [...] alcohol infrequently, no significant caffeine intake, no qgxl-cfr-mebrjva decongestions Family history: Her mother of a [...] Not on file (more content not included)... [facility] 01-13-2024 Note Cardiovascular Labor atory Report FINAL IMPRESSIONS: Angiographically nonobstructive coronary arteries Normal global left ventricular systolic function by noninvasive imaging RECOMMENDATIONS: Aggressive cardiovascular risk factor modification Optimal medical therapy for mild coronary disease should include aspirin, moderate intensity statin therapy, plus or minus an angiotensin-converting enzyme inhibitor/receptor jimy She is to follow-up with Dr. Turner [...] left radial artery was obtained. A 6 Japanese glide sheath was inserted without difficulty. Difficulty [...] is angiographically nonobstructive. INDICATIONS: Abnormal stress test [facility] 12-14-2023 Note New order for cardiac cath [facility] 12-01-2023 Note This report has been cancelled. [facility] 12-01-2023 Note Error [facility] 11-25-2023 Note FYI - I made patient aware that we will proceed with coronary angiogram. I placed the orders but EPIC is being EPIC and won't let me close the encounter so working with IT on this. Thx [facility] 11-25-2023 Note EKG portion was posi tive for inferior ischemia. Nuc imaging was negative for ischemia. Her sx's are dyspnea. We are looking to start flecanide for her for her a.fib. Should we proceed with cath or coronary CTA? Thanks! [facility] 11-25-2023 Note Do we have the exerc ise portion results? [facility] 11-24-2023 Note LOOP IMPLANT PROCEDU RE NOTE DATE OF PROCEDURE: 11/24/23 PERFORMING PHYSICIAN: Dr. Turner Harding PASTRY SOUS CHEF: SAMIA INDICATIONS FOR PROCEDURE: 1. SVT/AF surveillance [...] the sternum on the left using the LUVHAN tool. The loop recorder was then injected [...] the incision. Turner Harding MD Cardiac Electrophysiology. [facility] 11-03-2023 Note [place] Electrophysiology Consult Note Reason [...] or signs patient was recently seen in [place] ED 08/2022 for palpitations. She was found [...] palpitations, lightness, dizziness, fatigue 08/2022 ECG by [place] [facility]- appears to be sinus tach with [...] alcohol infrequently, no significant caffeine intake, no hwor-ejp-[id number] decongestions Family history: Her mother of a brain aneurysm, no history of premature coronary artery disease, no history of arrhythmias Medications: Eliquis 5 mg p.o. twice daily, lisinopril 10/hydrochlorothiazide 12.5 mg daily, Toprol-XL 50 mg daily, Zocor 10 mg daily -- 03/03/[address] Mehdi estevez?c; Afib H?PI: [...] alcohol infrequently, no significant caffeine intake, no fcxs-[id number]-vanzhwp decongestions Family history: Her mother of a [...] on file Intimate Partner Violence: Unknown (08/26/2023) [place] Safety & [place] Fear of Current or Ex-Partner: Not on file Emotionally Abused: Not on file Physically Abused: Not on file Sexually Abused: Not on file Physically or Sexually Abused: Not on file Depression: Not on file Housing Stability: Not on file U (more content not included)... [facility] 10-28-2023 Note [place] Electrophysiology Consult Note Reason for visit: PAF/MR/HTN/HLD [...] or signs patient was recently seen in [place] ED 08/2022 for palpitations. She was found [...] palpitations, lightness, dizziness, fatigue 08/2022 [facility]- appears to be sinus tach with [...] alcohol infrequently, no significant caffeine intake, no oqtp-opn-qcriwek decongestions Family history: Her mother of a brain aneurysm, no history of premature coronary artery disease, no history of arrhythmias Medications: Eliquis 5 mg p.o. twice daily, lisinopril 10/hydrochlorothiazide 12.5 mg daily, Toprol-XL 50 mg daily, Zocor 10 mg daily -- 03/03/[address] Mehdi estevez?c; Afib H?PI: [...] alcohol infrequently, no significant caffeine intake, no [id number] decongestions Family history: Her mother of a [...] Intimate Partner Violence (more content not included)... [facility] 10-28-2023 Note Patient here for [facility] ED for afib. Says she [...] All other systems reviewed and are negative. [facility] 06-04-2023 Note [place] Electrophysiology Consult Note Reason for visit: 6 [...] or signs patient was recently seen in [place] ED 08/2022 for palpitations. She was found [...] palpitations, lightness, dizziness, fatigue 08/2022 ECG by [place] [facility]- appears to be sinus tach with [...] alcohol infrequently, no significant caffeine intake, no ogwo-twb-jswvcth decongestions Family history: Her mother of a brain aneurysm, no history of premature coronary artery disease, no history of arrhythmias Medications: Eliquis 5 mg p.o. twice daily, lisinopril 10/hydrochlorothiazide 12.5 mg daily, Toprol-XL 50 mg daily, Zocor 10 mg daily -- 03/03/[address] Mehdi estevez?herb; Afib H?PI: [...] alcohol infrequently, no significant caffeine intake, no ujcw-tst-tnuores decongestions Family history: Her mother of a [...] (Eliquis) 5 m (more content not included)... [facility] 06-04-2023 Note Patient here for 6 m o follow up PAF, mitral valve regurgitation, and hypertension. She had an echo in January 2023. Says her BP has been running around 150/90, as she is always high strung this time of year . Denies chest pain, SOB, palpitations, lightheadedness, and bleeding on Eliquis. Review of Systems All other systems reviewed and are negative. [facility] 04-22-2023 Evaluation note Encounter Date Diagnosis [...] see your pcp. Take tylenol as needed. [employer] Other Evaluation note* Diagnosis Oth intartic fracture of lower end of left radius, init- Primary Left wrist pain Pain in joint, forearm [facility] Diagnosis Left wrist pain- Primary Pain in joint, forearm Oth intartic fracture of lower end of left radius, init [facility] Diagnosis Left wrist pain- Primary Pain in joint, forearm Oth intartic fracture of lower end of left radius, init [facility] Diagnosis Left wrist pain- Primary Pain in joint, forearm Oth intartic fracture of lower end of left radius, init [facility] Diagnosis Well woman exam with routine gynecological exam Routine gynecological examination Breast cancer screening by mammogram Postmenopausal state Asymptomatic postmenopausal status (age-related) (natural) [facility] - Reported* Type Description Date Medical History HTN Medical History HYPERLIPIDEMIA Medical History SHINGLES Medical History GUILLAIN-BARRE SYNDROME Medical History Afib Surgical History TUBALIGATION Surgical History EYE SURGERY Surgical History MACULAR HOLE Surgical History LUMP REMOVED FROM LEFT BREAST Surgical History bunionectomy Hospitalization History 3 CHILD BIRTHS Hospitalization History GUILLAIN-BARRE SYNDROME [employer] Other Reason for visit Narrative* Rehabilitation - Outpatient (Routine) - Authorized Specialty Diagnoses / Procedures Referred By Nemesio t Referred To Contact Occupational Therapy / Physical Therapy Diagnoses Other intraarticular fracture of lower end of left radius, subsequent encounter for closed fracture with routine healing PO L Wrist Procedures [place] OCCUPATIONAL THERAPY EVALUATION EVALUATION Tiffanie Villanueva MD [address] [place], [place] [id number] Phone: tel: fax: Amberly Galvin, OT [address] [place] [address] Phone: tel:[phone] fax:[phone] Referral ID Status Reason Start Date Expiration Date V isits Requested Visits Authorized [id number] Authorized 05/09/2024 11/05/2024 99 99 [facility] Summary Purpose Family History No Family History Records FoundNo Family History Records FoundNo Family History Records FoundNo Family History Records Found Advance Directives No Advanced Directives Records FoundNo Advanced Directives Records FoundNo Advanced Directives Records FoundNo Advanced Directives Records Found Additional Source Comments INFORMATION SOURCE (unrecogn ized section and content) DATE CREATED AUTHOR 03/13/2021 [facility] DATE CREATED AUTHOR AUTHOR'S ORGANIZ ATION 10/30/2022 [facility] DATE CREATED AUTHOR AUTHOR'S ORGANIZ ATION 05/27/2024 [facility] DATE CREATED AUTHOR AUTHOR'S ORGANIZ ATION 06/02/2024 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 Start Date End Date Rinku Peterson MD [address] [place] [address] PCP - General Family Medicine 12/31/22 Ryan Ruiz MD [address] [facility] [address] [place] [address] PCP - [employer] 05/05/24 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 Start Date End Date Rinku Peterson MD [address] [place] [address] PCP - General Family Medicine 12/31/22 Ryan Ruiz MD [address] [address] PCP - [employer] 05/05/24 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 Start Date End Date Rinku Peterson MD [address] [place] [address] PCP - General Family Medicine 12/31/22 Ryan Ruiz MD [address] [address] PCP - [employer] 05/05/24 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 Start Date End Date Rinku Peterson MD [address] [place] [address] PCP - General Family Medicine 12/31/22 Ryan Ruiz MD [address] [address] PCP - [employer] 05/05/24 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 [facility] [email or web address] [facility]. provides no warranty or guarantee of the accuracy or completeness of information in this document.
== END 2024-06-05 20:36 | disposition home or self-care (01) ==
LOC: LAB 20:35
PROVIDERS: PCP Internal Medicine; Visit Provider Obstetrics & Gynecology
DX: Z01.419 Encounter for gynecological examination (general) (routine) without abnormal findings (principal)
CPT/HCPCS: 87624; 88175

== ENCOUNTER 2024-07-31 08:40 | Outpatient (OUT) | payer MEDICARE, SELFPAY ==
--- NOTE | 2024-07-31 08:42 | CA_ITS ---
Patient Name: MADAN COONEY MR#: [id number] : 1950 Exam Date: 07/31/2024 Ordering Doctor: DR HOLLY PELAYO M.D. ECHOCARDIOGRAM REPORT PROCEDURE: CA ECHO DOPPLER COMPLETE INDICATIONS: Atrial fibrillation/flutter, Abnormal EKG COMPARISON: None. DESCRIPTION: COMPLETE ECHOCARDIOGRAM Real-time transthoracic echocardiography with 2D, M-mode, spectral and color flow Doppler performed. QUALITY: Technical quality was good. LEFT VENTRICLE: Normal chamber size. Normal left ventricular wall thickness. Global left ventricular systolic function is normal. LV EF: Estimated left ventricular ejection fraction is 55-60%. DIASTOLIC: Normal diastolic function. ATRIAL SEPTUM: LEFT ATRIUM: Moderate dilatation. RIGHT ATRIUM: Mild dilatation. RIGHT VENTRICLE: Normal chamber size. Normal right ventricular systolic function. TRICUSPID VALVE: Normal mobility and thickness. No stenosis with trivial regurgitation. No evidence of pulmonary hypertension. RVSP 31 mmHg MITRAL VALVE: Normal mobility and thickness. No evidence of mitral valve stenosis. There is no mitral annular calcification. Mild mitral regurgitation. AORTIC VALVE: Normal trileaflet appearance. No visible sclerosis. Normal leaflet mobility. No evidence of aortic valve stenosis. Trivial aortic regurgitation. AORTIC ROOT: Normal diameter and appearance, measuring 2.8 cm. Normal size ascending aorta measuring 2.4 cm. PULMONIC VALVE: Normal thickness and mobility. No stenosis. Trivial regurgitation. PERICARDIUM: No evidence of pericardial effusion. IVC: Collapses with inspirations. Normal size. PLEURA: CONCLUSION: 1. Normal left ventricular size and systolic function. Estimated LVEF is 55 to 60%. 2. Normal right ventricular size and systolic function. 3. Normal diastolic function. 4. Mild to moderate biatrial dilatation. 5. Mild mitral regurgitation. 6. Normal right-sided pressures. Adult Echocardiography Procedure Report Left Ventricle LVEDD (3.7 - 5.6 cm): 4.36 cm LVESD (2.2 - 4.0 cm): 3.09 cm LVIVS thickness (0.6 - 1.2 cm): 0.85 cm LVPW thickness (0.5 - 1.0 cm): 0.76 cm e': 0.10 m/s E - e': 8.57 LVOT Max Gradient: 3.92 mm[Hg] LVOT Area (cm2): 0.99 m/s Peak Velocity (LVOT): 0.99 m/s Mean Velocity (LVOT): 0.65 m/s LVOT Diameter 1.77 cm Left Ventricular Ejection Fraction: 55-60 % Left Atrium LA Volume Index (2D A2C): 35.11 ml/m2 Left Atrium Systolic Dimension: 3.51 cm Mitral Valve MV E to A Ratio: 1.05 Mitral Valve A-Wave Peak Velocity: 0.81 m/s Mitral Valve E-Wave Peak Velocity: 0.85 m/s Right Ventricle RV Internal Diastolic Dimension: 3.20 cm Aorta AO Root Diam: 2.81 cm Ascending Ao Diam: 2.44 cm Aortic Valve AoV Area (Peak Jimenez): 2.02 cm2, 2.02 cm2 AoV Area (VTI): 1.91 cm2, 1.91 cm2 Peak Velocity(Antegrade Flow): 1.20 m/s Peak Gradient(Antegrade Flow): 5.78 mm[Hg] Mean Velocity(Antegrade Flow): 0.83 m/s Mean Gradient(Antegrade Flow): 3.18 mm[Hg] Velocity Time Integral: 31.65 cm Tricuspid Valve Peak Velocity (Regurgitant Flow): 2.60 m/s, 2.24 m/s, 2.65 m/s Pulmonic Valve Mean Gradient: 2.15 mm[Hg], 2.32 mm[Hg] Mean Velocity: 0.69 m/s, 0.72 m/s Peak Velocity: 0.99 m/s Peak Gradient: 3.90 mm[Hg], 3.90 mm[Hg] Right Atrium Right Atrium Systolic Pressure: 41.00 ml, 41.00 ml Dictated by: Ryan Roberts M.D. on 07/31/2024 at 10:37 Approved by: Ryan Roberts M.D. on 07/31/2024 at 10:41
--- OUTSIDE RECORDS SUMMARY | 2024-07-31 08:55 | XMS_ITS | CCD ---
Author Organization [facility] Care Team Providers Care Grill Chef Name Role Phone DIONY ., DR DOBBS Primary Care Unavailable FREDY Velazquez, BRANDO Consulting Unavailable FREDY Velazquez, BRANDO Attending Unavailable FREDY Velazquez, BRANDO Admitting Unavailable DALI MYERS Consulting Unavailable EDWARD, DR TIFFANIE Ragland Consulting Unavailable CASSIE PERRY Attending Unavailable CASSIE PERRY Admitting Unavailable HOY ., DR DOBBS Primary Care Unavailable CASSIE PERRY Consulting Unavailable DIONY ., DR DOBBS Admitting Unavailable HOY ., DR DOBBS Primary Care Unavailable HOY ., DR DOBBS Consulting Unavailable HOY ., DR DOBBS Attending Unavailable STEPHANY, DR RAFIQ Chi Consulting Unavailable LEAH SEALS Consulting Unavailable LEAH SEALS Attending Unavailable LEAH SEALS Admitting Unavailable DIONY ., DR DOBBS Primary Care Unavailable LEAH [...] Primary Care Provider Ryan Ruiz MD Unavailable RYAN RUIZ Attending Unavailable RYAN RUIZ Attending Unavailable AMBERLY GALVIN Attending Unavailable TIFFANIE VILLANUEVA Referring Unavailable AMBERLY GALVIN Attending Unavailable TIFFANIE VILLANUEVA Referring Unavailable AMBERLY GALVIN Attending Unavailable TIFFANIE VILLANUEVA Referring Unavailable VINOD GALVINNEY Attending Unavailable VILLANUEVA, TIFFANIE Estevez Referring Unavailable BLACKSTON, AMBERLY Attending Unavailable VILLANUEVA, TIFFANIE Estevez Referring Unavailable BLACKSTON, AMBERLY Attending Unavailable VILLANUEVA, TIFFANIE C Referring Unavailable THEO LEY Attending Unavailable JEFFERY DOE Attending Unavailable VILLANUEVA, TIFFANIE Estevez Referring Unavailable BLACKSTON, AMBERLY Attending Unavailable VILLANUEVA, TIFFANIE C Referring Unavailable ELTAHAWY, EHAB Admitting Unavailable ELTAHAWY, EHAB Attending Unavailable ASHPRETTY Attending Unavailable STEPHANIE, TURNER Referring Unavailable STEPHANIE, TURNER Attending Unavailable STEPHANIE, TURNER Referring Unavailable STEPHANIE, TURNER Referring Unavailable STEPHANIE, TURNER Referring Unavailable STEPHANIE, TURNER Referring Unavailable STEPHANIE, TURNER Referring Unavailable ELTAHAWY, EHAB Referring Unavailable ELTAHAWY, EHAB Attending Unavailable ASH, PRETTY Attending Unavailable ELTAHAWY, EHAB Admitting Unavailable ELTAHAWY, EHAB Attending Unavailable STEPHANIE, TURNER Admitting Unavailable STEPHANIE, TURNER Attending Unavailable Allergies Allergy Classification Reported Allergen(s) Allergy Type Date of Onset Reaction(s) Facility (1 source) Sulfonamides (Antibiotic) Drug allergy (disorder) 09-01-19 21 [facility] Repository (1 source) Sulfamethoxazole / Trimethoprim Drug Allergy NAILS TURNED PURPLE Violet Grey Other (20 sources) Ciprofloxacin; 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: [CIPROFLOXACIN] Drug Allergy 11-24-19 24 [facility] (20 sources) levoFLOXacin; 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: [LEVOFLOXACIN] Drug Allergy 11-24-19 24 [facility] (20 sources) Sulfacetamide Drug Allergy 01-01-20 23 Hives [facility] (20 sources) Sulfonamides (Antibiotic) Drug Allergy 07-06-19 14 Unknown [facility] (1 source) Sulfonamides (Antibiotic); 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: [SULFA (SULFONAMIDE ANTIBIOTICS)] Propensity to adverse reactions to drug (disorder) 12-03-19 23 [facility] Repository Medications Current Medications Medication Drug Class(es) Dates Sig (Normalized) Sig (Original) apixaban 5 mg oral tablet (20 sources) Factor Xa Inhibitor take 1 tablet [...] Orally bid Active Calcium 600-5 MG-MCG tablet (20 sources) Calcium 600-5 MG -MCG tablet Take by mouth Active Centrum Silver Adult 50+ - (1 source) Centrum Silver A dult 50+ - as directed Orally Active cholecalciferol 0.01 mg/ml oral solution (20 sources) Vitamin D Cholecalciferol (Vitamin D) 10 MCG/ML liquid Take by mouth Active cranberry preparation 500 mg oral capsule (20 sources) Non-Standardized Food Allergenic Extract, Non-Standardized Plant Allergenic Extract Cranberry 500 MG capsule Take by mouth Active Cranberry 250 MG as directed Orally Active hydroCHLOROthiazide 12.5 mg / lisinopril 10 mg oral tablet (20 sources) Thiazide Diuretic, Angiotensin Converting Enzyme Inhibitor Start: 12-09-2022 lisinopril-hydroCHLOROthiazi de 10-12.5 MG tablet Take 1 tablet by mouth Daily 1/2 tablet as directed 12/09/2022 Active Start: 12-09-2022 take 1 tablet by angie th in the morning lisinopril-hydroCHLOROthiazide 10-12.5 M G tablet Take 1 tablet by mouth in the morning. as directed. 12/09/2022 Active Lisinopril-hydro CHLOROthiazide Active magnesium oxide 400 mg oral capsule (20 sources) Start: 12-01-2023 Magnesium Oxid e -Mg Supplement 400 MG capsule 12/01/2023 Active 24 hr metoprolol succinate 50 mg extended release oral tablet (20 sources) beta-Adrenergic Jimy Start: 12-02-2022 take 1 [...] chloride 10 meq extended release oral tablet (20 sources) Start: 12-02-2022 take 1 tablet by mouth in the morning potassium chloride CR (Klor-Con) 10 MEQ ER tablet Take 10 mEq by mouth in the morning. 12/02/2022 Active sertraline 50 mg oral tablet (20 sources) Serotonin Reuptake Inhibitor Start: 11-30-2023 take 1 tablet by mouth once daily sertraline (Zoloft) 50 MG tablet Take 50 mg by mouth Daily 11/30/2023 Active simvastatin 10 mg oral tablet (20 sources) HMG-CoA Reductase Inhibitor Start: 12-02-2022 take 1 tablet by mouth in the morning simvastatin (Zocor) 10 MG tablet Take 10 mg by mouth in the morning. 12/02/2022 Active Simvastatin Acti ve Vitamin D-3 1000 UNIT (1 source) take 2 tablets by mo ut once daily Vitamin D-3 1000 UNIT 2 [...] Problem Date Documented Date Episodic/Chronic Anxiety disorders (20 sources) Anxiety disorder; 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: [Anxiety disorder, unspecified] Onset: 10-28-2023 12-03-2023 Chronic Cardiac dysrhythmias (20 sources) Atrial fibrillation; 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: [Unspecified atrial fibrillation] Onset: 02-24-2021 12-03-2023 Chronic Cardiac dysrhythmias (7 sources) Palpitations; 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: [PALPITATIONS] Onset: 02-12-2023 Episodic Coagulation and hemorrhagic disorders (2 sources) Thrombophilia; 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: [Other thrombophilia] 03-08-2024 Chronic Conduction disorders (2 sources) Presence of automatic (implantable) cardiac defibrillator; 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: [Presence of automatic (implantable) cardiac defibrillator] Onset: 07-25-2024 Chronic Coronary atherosclerosis and other heart disease (20 sources) Non-obstructive atherosclerosis of coronary artery; 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: [Atherosclerotic heart disease of [place] coronary artery without angina pectoris] Onset: 03-08-2024 03-08-2024 Chronic Disorders of lipid metabolism (20 sources) Mixed hyperlipidemia; 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: [Mixed hyperlipidemia] Onset: 10-29-2023 12-03-2023 Chronic Essential hypertension (20 sources) Essential hypertension; 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: [Essential (primary) hypertension] Onset: 12-30-2022 12-03-2023 Chronic Fracture of upper limb (20 sources) Closed fracture of distal end of radius; 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: [Other intraarticular fracture of lower end of left radius, initial encounter for closed fracture] Onset: 05-09-2024 05-09-2024 Episodic Heart valve disorders (20 sources) Non-rheumatic mitral regurgitation ; 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: [Nonrheumatic mitral (valve) insufficiency] Onset: 12-30-2022 12-03-2023 Chronic Hypertension with complications and secondary hypertension (20 sources) Benign hypertensive heart disease without congestive heart failure; 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: [Hypertensive heart disease without heart failure] Onset: 10-29-2023 12-03-2023 Chronic Mycoses (4 sources) Tinea unguium; 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: [TINEA UNGUIUM] Onset: 10-23-2022 Episodic Osteoporosis (4 sources) Age-related osteoporosis without current pathological fracture; 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: [AGE-REL OSTEOPOR W/O CURR PATH FX] Onset: 08-25-2022 Chronic Other aftercare (1 source) skilled nursing (current) use of anticoagulants; 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: [POT FIREMAN CURRNT USE ANTICOAGULANTS] Onset: 08-18-2022 Episodic Other aftercare (1 source) 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; 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: [OTH RESIDENTIAL CURRENT DRUG THERAPY] Onset: 08-18-2022 Episodic Other bone disease and musculoskeletal deformities (1 source) Other specified disorders of bone density and structure, multiple sites; 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: [OTH D/O BONE DENSITY STRUCT MX SITE] Onset: 08-28-2022 Episodic Other endocrine disorders (20 sources) Mass of left adrenal gland; 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: [Other specified disorders of adrenal gland] Onset: 12-30-2022 12-03-2023 Chronic Other non-traumatic joint disorders (20 sources) Pain of left wrist; 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: [Pain in left wrist] Onset: 05-09-2024 05-09-2024 Episodic Other nutritional; endocrine; and metabolic disorders (1 source) Hypomagnesemia; 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: [HYPOMAGNESEMIA] Onset: 08-18-2022 Chronic Other nutritional; endocrine; and metabolic disorders (20 sources) Hypomagnesemia; 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: [Hypomagnesemia] Onset: 10-29-2023 12-03-2023 Chronic Other upper respiratory infections (4 sources) Chronic sinusitis, unspecified; 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: [CHRONIC SINUSITIS UNSPECIFIED] Onset: 03-30-2022 Chronic Other upper respiratory infections (1 source) Acute upper respiratory infection, unspecified Episodic Pulmonary heart disease (20 sources) Pulmonary hypertension; 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: [Pulmonary hypertension, unspecified] Onset: 12-06-2023 12-06-2023 Chronic Residual codes; unclassified (2 sources) Postmenopausal state; 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: [Asymptomatic menopausal state] 06-05-2024 Episodic Past or Other Problems Problem Classification Problem Date Documented Da te Episodic/Chronic Fluid and electrolyte disorders (20 sources) Hypokalemia; 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: [Hypokalemia] Onset: 08-18-2022 12-03-2023 Episodic Other bone disease and musculoskeletal deformities (20 sources) Osteopenia; 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: [Other specified disorders of [...] mammogram for malignant neoplasm of breast; 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: [Patient encounter status] Onset: 02-09-2022 Episodic Residual codes; unclassified (1 source) Family history of malignant neoplasm of prostate; 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: [FAMILY HX MALIG NEOPLASM PROSTATE] Onset: 02-11-2022 Episodic Unclassified (1 source) Contact with and (suspected) exposure to covid-19 Z20.822 Viral infection (2 sources) COVID-19; 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: [COVID-19] Onset: 04-01-2022 Results Test Name Value Interpretation Reference Range Facility Office Visiton 07-27-2024 Follow-up visit [id number] Sharri Cooney 1950 F Date Provider Department Center 07/27/2024 [id number], ALEXANDRUAB CARD [facility] No family history on file Level of Service:04075 [place] OFFICE/OUTPATIENT ESTABLISHED MOD MDM 30 MIN Normal [facility] IGP,APTIMA HPV,AGE GDLNon AGE GDLN ACOG TESTING Note . [facility] Comment on above: TESTS RESULT FLAG U NITS REF RANGE LAB Clinician Provided Cytology Information Source.............Cervix;Endocervix No. of containers..01 ThinPrep Vial Age Algo ACOG Rayna... Note 01 <21 or >65 or no age provided FLAG LEGEND: L-Low Normal,H-High Normal,LL-Alert Low,HH-Alert High <-Panic Low,>-Panic High,A-Abnormal,AA-Critical Abnormal Performed at: 01 =G [facility] [place] [place] [address] Prabha Vizcarra MD, PAP IG (IMAGE GUIDED) Note . [facility] Comment on above: TESTS RESULT FLAG UN ITS REF RANGE LAB DIAGNOSIS: 02 NEGATIVE FOR INTRAEPITHELIAL LESION OR MALIGNANCY. REACTIVE CELLULAR CHANGES AND/OR REPAIR ARE PRESENT. CELLULAR CHANGES ASSOCIATED WITH ATROPHY ARE PRESENT. Specimen adequacy: 02 Satisfactory for evaluation. Endocervical component may not be distinguished in cases of atrophy. Performed by: Will Aaron, Technical Assistant (ASCP) Electronically si... Monique Loyd MD, Pathologist . 02 Note: Note 02 The Pap smear is a screening test designed to aid in the detection of premalignant and malignant conditions of the uterine cervix. It is not a diagnostic procedure and should not be used as the sole means of detecting cervical cancer. Both false-positive and false-negative reports do occur. Test Methodology: Note 02 This liquid based ThinPrep(R) pap test was screened with the use of an image guided system. FLAG LEGEND: L-Low Normal,H-High Normal,LL-Alert Low,HH-Alert High <-Panic Low,>-Panic High,A-Abnormal,AA-Critical Abnormal Performed at: [address] [place] [address] Prabha Vizcarra MD, Performed at: = - [facility] [id number] Piston Maker: Prabha Vizcarra MD, Phone: [phone] Performed at: [place] [address] [address] [place] [id number] Piston Maker: Prabha Vizcarra MD, Phone: [phone] BRUSH-SPATULA CERVIX ENDOCERVIX [facility] ALL LIPID PROFILE (FASTING)o n 03-09-2024 CHOL HDL RATIO 2.4 [facility] Comment on above: 3.3 - 4.4 LOW RISK 4.4 - 7.1 AVERAGE RISK 7.1 - 11.0 MODERATE RISK >11.0 HIGH RISK Cholesterol [Mass/Vol] 154 mg/dL NINF - 200 mg/dL [facility] Cholesterol in HDL [Mass/Vol] 63 mg/dL High 40 - 60 mg/dL [facility] Comment on above: > or =60 mg/dl - LOW CARDIOVASCULAR RISK <40 mg/dl - HIGH CARDIOVASCULAR RISK Interpretation and review of laboratory results Abnormal [facility] Magnesium [Mass/Vol] 81.0 mg/dL [facility] Comment on above: <100 mg/dl OPTIMAL 100-129 mg/dl NEAR OR ABOVE OPTIMAL 130-159 mg/dl BORDERLINE HIGH 160-189 mg/dl HIGH >190 mg/dl VERY HIGH Magnesium [Mass/Vol] 10.4 mg/dL [facility] Triglyceride [Mass/Vol] 52 mg/dL NINF - 150 mg/dL [facility] Office Visiton 02-01-2024 Follow-up visit [id number] Sharri Cooney 1950 F Date Provider Department Center 02/01/2024 Key-PRETTY PLAZA CARD [facility] No family history on file Level of Service:05821 [place] OFFICE/OUTPATIENT ESTABLISHED MOD MDM 30 MIN Normal [facility] Kennedy 01-13-2024 ANES - Attestation signed by Cecilia Peter MD at 01/13/2024 8:28 AM Cecilia Peter MD, MPH, FACC, [facility], [facility] Interventional Cardiology Pager Email: [email or web address] Patient: Sharri Cooney Procedure Information Date/Time: 01/13/24 0830 Procedure: Coronary angiography; PC Approved (12/02-05/31) Location: [facility] OUT PATIENT THERAPIST 3 / [facility]ULAR [facility] (Cath) Providers: Cecilia Peter [...] discussed with attending. Additional Equipment Requests Normal [facility] HPon 01-13-2024 - Attestation signed by Cecilia [...] wishes to proceed. Cecilia Peter MD, MPH, [facility] Interventional Cardiology Pager Email: [email or web address] H&P reviewed. The patient was examined and there are no changes to the H&P. Sharri Cooney is a 73 y.o. year old with past medical history of A-fib RVR, hypertension, dyslipidemia, and mild MR presents for ischemic work up for Afib. Patient will undergo coronary angiography. [facility] NURSNOTEjennifer 01-13-2024 JAIME RN educated pt on d/ c instructions. RN encouraged pt to voice any questions or concerns. Pt verbalizes no questions or concerns at this time. Pt was wheeled off of unit with all of belongings. [facility] HPon 12-14-2023 HP New order for cardia c cath [facility] Orders Onlyon 12-14-2023 Orders Only [id number] Sharri Cooney 1950 F Date Provider Department Center 12/14/2023 PRETTY GALLAGHER [facility] No family history on file [facility] Telephoneon 12-10-2023 Telephone [id number] Reno 1950 F Date Provider Department Center 12/10/2023 [facility] No family history on file [facility] Telephoneon 12-01-2023 Telephone [id number] Sharri Cooney 1950 F Date Provider Department Center 12/01/[address] No family history on file [facility] Orders Onlyon 11-25-2023 Orders Only [id number] Sharri Cooney 1950 F Date Provider Department Center 11/25/2023 [id number], HISTORICAL BH CARD [facility] No family history on file Normal [facility] HPon 11-24-2023 [facility] Electrophysiology Consult Note Reason for [...] or signs patient was recently seen in [facility] 08/2022 for palpitations. She was found [...] palpitations, lightness, dizziness, fatigue 08/2022 ECG by [facility]- appears to be sinus tach with [...] alcohol infrequently, no significant caffeine intake, no rzao-fes-hjahesj decongestions Family history: Her mother of a brain aneurysm, no history of premature coronary artery disease, no history of arrhythmias Medications: Eliquis 5 mg p.o. twice daily, lisinopril 10/hydrochlorothiazid e 12.5 mg daily, Toprol-XL 50 mg daily, Zocor 10 mg daily ----- 03/03/[address] Stephanie estevez?c; Afib H?PI: 71-year-old woman with HTN [...] alcohol infrequently, no significant caffeine intake, no lvav-fxb-whdjcik decongestions Family history: Her mother of a [...] on file Intimate Partner Violence: Unknown (08/26/2023) [place] Safety & Environment Fear of Current or Ex-Partner: Not on file Emotionally Abused: Not on file Physically Abused: Not on file Sexually Abused: Not on file Physically or Sexually Abused: Not on file Depression: Not on file Housing Stability: Not on file U (more content not included)... [facility] NURSNOTEon 11-24-2023 NURSNOTE RN educated pt on d/ c instructions. RN encouraged pt to voice any questions or concerns. Pt verbalizes no questions or concerns at this time. Pt was walked off of unit with all of belongings. [facility] Office Visiton 11-03-2023 Follow-up visit [id number] Sharri Cooney 1950 F Date Provider Department Center 11/03/2023 [facility] No family history on file Level of Service:02464 [place] OFFICE/OUTPATIENT ESTABLISHED LOW MDM 20 MIN Reason for Visit and Comments: Follow-up [240187] Atrial Fibrillation [80] [facility] 36on 10-29-2023 36 I ordered a stress test for her along with increased metoprolol and Kcl. Also started mag oxide. Please send stress to [facility]. Please call patient and schedule her an appt with Dr. Harding at his soonest available. He said if she really wants to get in [place] with him he can see her at [place] next week while he is on Med . Thanks! Normal [facility] Telephoneon 10-29-2023 Telephone [id number] Sharri Cooney 1950 F Date Provider Department Center 10/29/[address] No family history on file Normal [facility] Office Visiton 10-28-2023 Follow-up visit [id number] Sharri Cooney 1950 F Date Provider Department Center 10/28/2023 PRETTY GALLAGHER DALE [facility] No family history on file Level of Service:23388 [place] OFFICE/OUTPATIENT ESTABLISHED MOD MDM 30 MIN Reason for Visit and Comments: Atrial Fibrillation [80] Palpitations [737248] Normal [facility] COVID/FLU RT-PCRon SARS-CoV-2 (COVID-19) RNA VERONICA+probe Ql (Unsp spec) Positive Violet Grey Other COVID/FLU RT-PCR Negative [facility]OG[facility] Other SGOTon 10-23-2022 AST [Catalytic activity/Vol] 45 U/L Critically high 15-37 [facility] Comment on above: Performed By: #### A LT, AST #### [facility] [address] [place] [address] Dr. Fred Treviño 10-23-2022 ALT [Catalytic activity/Vol] 48 U/L Normal 14-59 [facility] Comment on above: Performed By: #### A LT, AST #### [facility] [address] [place] [address] [address] Fred Bates 09-10-2022 AST [Catalytic activity/Vol] 40 U/L Critically high 15-37 [facility] Comment on above: Performed By: #### A LT, AST #### [facility] [address] [place] [address] Dr. Fred Treviño 09-10-2022 ALT [Catalytic activity/Vol] 52 U/L Normal 14-59 [facility] Comment on above: Performed By: #### A LT, AST #### [facility] [address] [place] [address] Dr. Fred Jackson XR DEXA BONE DENSITYon 08-25 XR DEXA BONE DENSITY DEXA Bone Density Study CLINICAL: Evaluate bone mineral density. Postmenopausal COMPARISON: FINDINGS: The bone density study was assessed by dual-energy x-ray absorptiometry with the HEMINGWAY scanner. The test results are expressed in [...] RAFIQ SEALS Date: 2022-08-25 09:50 Normal [facility] BNPon 08-16-2022 Natriuretic peptide B (Bld) [Mass/Vol] 87.0 pg/mL Normal <=900.0 [facility] Comment on above: Performed By: #### T SH, CMP, BNP, CMADM ####[facility] [id number] [place] [address]Dr. Fred Jakcson CARDIAC JASSI ADMITon 023 CK [Catalytic activity/Vol] 152 U/L Normal 26-192 [facility] Comment on above: Performed By: #### T SH, CMP, BNP, CMADM ####[facility] [id number] [place] [address]Dr. Fred Jackson CK.MB [Mass/Vol] 2.96 ng/mL Normal <=3.60 [facility] Comment on above: Performed By: #### T SH, CMP, BNP, CMADM ####[facility] [id number] [place] [address]Dr. Fred Jackson HSTROP 6.1 pg/mL Normal 4.0-51.3 [facility] Comment on above: Result Comment: CUT- OFF POINTS HAVE BEEN ESTABLISHED BASED ON THE FOURTH UNIVERSAL DEFINITIONS OF MYOCARDIAL INFARCTION. THE UPPER REFERENCE LIMIT (URL) OF TROPONIN, DEFINED THE 99TH PERCENTILE OF cTnI DISTRIBUTION IN A REFERENCE POPULATION, HAS BEEN CONFIRMED THE DECISION THRESHOLD FOR [place] DIAGNOSIS. Performed By: #### T SH, CMP, BNP, CMADM ####[facility] [address] [place], [place] [address]ViDr. Fred Jackson ANGELI 80 ng/mL Normal 9-82 [facility] Comment on above: Performed By: #### T SH, CMP, BNP, CMADM ####[facility] [address] [place], [place] [address]XkDr. Fred Jackson CBC AUTO DIFFon 08-16-2022 BASO # 0.1 103/ul Normal 0.0-0.1 [facility] Comment on above: Performed By: #### C BC #### [facility] [address] [address] [address] Fred Jackson Basophils/100 WBC (Bld) 1.4 % Normal 0.2-2.0 [facility] Comment on above: Performed By: #### C BC #### [facility] [address] [address] [address] Fred Jackson EO # 0.3 103/ul Normal 0.0-0.7 [facility] Comment on above: Performed By: #### C BC #### [facility] [address] [address] [address] Fred Jackson Eosinophils/100 WBC (Bld) 3.1 % Normal 0.9-7.0 [facility] Comment on above: Performed By: #### C BC #### [facility] [address] [address] [address] Fred Jackson Erythrocyte distribution width (RBC) [Ratio] 12.0 % Normal 11.0-15.0 [facility] Comment on above: Performed By: #### C BC #### [facility] [address] [address] [address] Fred Jackson Hematocrit (Bld) [Volume fraction] 40.5 % Normal 36.0-48.0 [facility] Comment on above: Performed By: #### C BC #### [facility] [address] [address] [address] Fred Jackson Hemoglobin (Bld) [Mass/Vol] 13.8 g/dL Normal 12.0-16.0 [facility] Comment on above: Performed By: #### C BC #### [facility] [address] [address] [address] Fred Jackson IG # 0.06 10e3/ul Critically high 0.00-0.03 [facility] Comment on above: Performed By: #### C BC #### [facility] [address] [address] [address] Fred Jackson IG % 0.6 % Critically high 0.0-0.5 [facility] Comment on above: Performed By: #### C BC #### [facility] [address] [place] [address] Dr. Fred Jackson LYMPH # 3.8 103/ul Normal 1.2-3.8 [facility] Comment on above: Performed By: #### C BC #### [facility] [address] [place] [address] Dr. Fred Jackson Lymphocytes/100 WBC (Bld) 36.6 % Normal 20.5-60.0 [facility] Comment on above: Performed By: #### C BC #### [facility] [address] [place] [address] Dr. Fred Jackson MANUAL DIFF REQ NO Normal [facility] Comment on above: Performed By: #### C BC #### [facility] [address] [place] [address] Dr. Fred Jackson MCH (RBC) [Entitic mass] 31.2 pg Normal 26.7-34.0 [facility] Comment on above: Performed By: #### C BC #### [facility] [address] [place] [address] Dr. Fred Jackson MCHC (RBC) [Mass/Vol] 34.1 g/dL Normal 29.9-35.2 [facility] Comment on above: Performed By: #### C BC #### [facility] [address] [place] [address] Dr. Fred Jackson MCV (RBC) [Entitic vol] 91.6 fL Normal 81.0-99.0 [facility] Comment on above: Performed By: #### C BC #### [facility] [address] [address] [address] Fred Jackson MONO # 1.2 103/ul Critically high 0.3-0.8 [facility] Comment on above: Performed By: #### C BC #### [facility] [address] [address] [address] Fred Jackson Monocytes/100 WBC (Bld) 11.3 % Normal 1.7-12.0 [facility] Comment on above: Performed By: #### C BC #### [facility] [address] [place] [address] Dr. Fred Jackson NEUT # 4.9 103/ul Normal 1.4-6.5 [facility] Comment on above: Performed By: #### C BC #### [facility] [address] [place] [address] Dr. Fred Jackson Neutrophils/100 WBC (Bld) 47.0 % Normal 43.0-75.0 [facility] Comment on above: Performed By: #### C BC #### [facility] [address] [place] [address] Dr. Fred Jackson Platelet mean volume (Bld) [Entitic vol] 8.9 fL Critically low 9.5-13.5 [facility] Comment on above: Performed By: #### C BC #### [facility] [address] [place] [address] Dr. Fred Jackson PLT 404 103/ul Normal 150-450 [facility] Comment on above: Performed By: #### C BC #### [facility] [address] [place] [address] Dr. Fred Jackson RBC 4.42 106/ul Normal 4.20-5.40 [facility] Comment on above: Performed By: #### C BC #### [facility] [address] [place] [address] Dr. Fred Jackson WBC 10.3 103/ul Normal 4.0-11.0 [facility] Comment on above: Performed By: #### C BC #### [facility] [address] [address] [address] Fred Jackson PROF 14(COMP METB)on 023 Albumin [Mass/Vol] 4.3 g/dL Normal 3.4-5.0 [facility] Comment on above: Performed By: #### T SH, CMP, BNP, CMADM ####[facility] [address] [address]Dr. Fred Jackson Albumin/Globulin [Mass ratio] 1.2 {ratio} Normal [facility] Comment on above: Performed By: #### T SH, CMP, BNP, CMADM ####[facility] [address] [address]Dr. Fred Jackson ALP [Catalytic activity/Vol] 96 U/L Normal 46-116 [facility] Comment on above: Performed By: #### T SH, CMP, BNP, CMADM ####[facility] [address] [address]Dr. Fred Jackson ALT [Catalytic activity/Vol] 34 U/L Normal 14-59 [facility] Comment on above: Performed By: #### T SH, CMP, BNP, CMADM ####[facility] [address] [address]Dr. Fred Jackson Anion gap [Moles/Vol] 16.6 mmol/L Normal [facility] Comment on above: Performed By: #### T SH, CMP, BNP, CMADM ####[facility] [address] [address]Dr. Fred Jackson AST [Catalytic activity/Vol] 39 U/L Critically high 15-37 [facility] Comment on above: Performed By: #### T SH, CMP, BNP, CMADM ####[facility] [address] [address]Dr. Fred Jackson Bilirubin [Mass/Vol] 0.8 mg/dL Normal 0.2-1.0 [facility] Comment on above: Performed By: #### T SH, CMP, BNP, CMADM ####[facility] [address] [place], [place] [address]Dr. Fred Jackson Calcium [Mass/Vol] 10.1 mg/dL Normal 8.5-10.1 [facility] Comment on above: Performed By: #### T SH, CMP, BNP, CMADM ####[facility] [address] [address]Dr. Fred Jackson Chloride [Moles/Vol] 91 mmol/L Critically low 98-107 [facility] Comment on above: Performed By: #### T SH, CMP, BNP, CMADM ####[facility] [address] [address]Dr. Fred Jackson CO2 [Moles/Vol] 25.5 mmol/L Normal 21.0-32.0 [facility] Comment on above: Performed By: #### T SH, CMP, BNP, CMADM ####[facility] [address] [address]Dr. Fred Jackson Creatinine [Mass/Vol] 0.95 mg/dL Normal 0.55-1.02 [facility] Comment on above: Performed By: #### T SH, CMP, BNP, CMADM ####[facility] [address] [place], [place] [address]Dr. Fred Jackson EGFR-AF BELGIAN >60 Normal >=60 [facility] Comment on above: Performed By: #### T SH, CMP, BNP, CMADM ####[facility] [address] [address]Dr. Fred Jackson EGFR-NON AF BELGIAN 58 mL/min/1.73m2 Critically low >=60 [facility] Comment on above: Performed By: #### T SH, CMP, BNP, CMADM ####[facility] [address] [address]Dr. Fred Jackson Globulin (S) [Mass/Vol] 3.6 g/dL Normal [facility] Comment on above: Performed By: #### T SH, CMP, BNP, CMADM ####[facility] [address] [address]Dr. Fred Jackson Glucose [Mass/Vol] 116 mg/dL Critically high 74-106 [facility] Comment on above: Performed By: #### T SH, CMP, BNP, CMADM ####[facility] [address] [address]Dr. Fred Jackson Potassium [Moles/Vol] 3.1 mmol/L Critically low 3.5-5.1 [facility] Comment on above: Performed By: #### T SH, CMP, BNP, CMADM ####[facility] [address] [address]Dr. Fred Jackson Protein [Mass/Vol] 7.9 g/dL Normal 6.4-8.2 [facility] Comment on above: Performed By: #### T SH, CMP, BNP, CMADM ####[facility] [address] [place], [place] [address]Dr. Shivandana Jackson Sodium [Moles/Vol] 130 mmol/L Critically low 136-145 [facility] Comment on above: Performed By: #### T SH, CMP, BNP, CMADM ####[facility] [address] [place], [place] [address]Dr. Shivandana Jackson Urea nitrogen [Mass/Vol] 17.0 mg/dL Normal 7.0-18.0 [facility] Comment on above: Performed By: #### T SH, CMP, BNP, CMADM ####[facility] [address] [place], [place] [address]Dr. Shivandana Jackson Urea nitrogen/Creatinin e [Mass ratio] 17.9 mg/mg Normal [facility] Comment on above: Performed By: #### T SH, CMP, BNP, CMADM ####[facility] [address] [place], [place] [address]Dr. Fred Jackson PROTIMEon 08-16-2022 INR Coag (PPP) [Relative time] 1.01 {INR} Normal [facility] Comment on above: Performed By: #### P TT, PT ####[facility] [address] [place], [place] [address]Dr. Fred Jackson INR GUIDELINES SEE BELOW Normal [facility] Comment on above: Result Comment: DOTTY RED INR: 2.0 - 3.0 CONDITIONS NOT LISTED BELOW 2.5 - 3.5 FOR PROSTHETIC HEART VALVE REPLACEMENT 2.5 - 3.5 RECURRENT THROMBOSIS Performed By: #### P TT, PT ####[facility] [address] [id number] Jackson PT Coag (PPP) [Time] 10.7 s Normal 9.0-11.6 [facility] Comment on above: Performed By: #### P TT, PT ####[facility] [address] [place], [place] [address]Dr. Fred Jackson PTTon 08-16-2022 aPTT Coag (Bld) [Time] 33.9 s Normal 22.3-36.2 [facility] Comment on above: Performed By: #### P TT, PT ####[facility] [address] [address]DrCaroline Jackson TROPONIN, HIGH SENSITIVITYon 08-16-2022 HSTROP 15.1 pg/mL Normal 4.0-51.3 [facility] Comment on above: Result Comment: CUT- OFF POINTS HAVE BEEN ESTABLISHED BASED ON THE FOURTH UNIVERSAL DEFINITIONS OF MYOCARDIAL INFARCTION. THE UPPER REFERENCE LIMIT (URL) OF TROPONIN, DEFINED THE 99TH PERCENTILE OF cTnI DISTRIBUTION IN A REFERENCE POPULATION, HAS BEEN CONFIRMED THE DECISION THRESHOLD FOR [place] DIAGNOSIS. Performed By: #### H STROPN #### [facility] [address], [place] [address] Dr. Fred Jackson TSHon 08-16-2022 TSH 4.364 uIU/mL Critically high 0.358-3.740 [facility] Comment on above: Performed By: #### T SH, CMP, BNP, CMADM ####[facility] [address] [id number] Jackson XR CHEST 1 Von 08-16-2022 XR [...] DALI MYERS Date: 2022-08-16 00:02 Normal [facility] Covid-19 PCR (CVDTBH)on 03-06 SARS-CoV-2 (COVID-19) RNA VERONICA+probe Ql (Unsp spec) Detected Critically abnormal NOT DETECTED [facility] Comment on above: Result Comment: This test is not yet approved or cleared by the [place] FDA. When there are no FDA-approved or cleared tests available, and other criteria are met, FDA can make tests available under an emergency access mechanism called an Emergency Use Authorization (EUA). The EUA for this test is supported by the Endoscopy Support Specialist of Health and Human Service's (HHS's) declaration [...] longer be used). Performed By: #### C [facility] ####[facility] [address] [place], [place] [address]NyCaroline Jackson CAROTID ART BILon 022 US CAROTID ART [...] TIFFANIE LEON Date: 2022-03-12 14:51 Normal [facility] MG MAMM SCREEN 3D JASMEET CADon 02-09-2022 MG MAMM SCREEN 3D JASMEET CAD Patient: SHARRI COONEY Exam Date: 02/09/2022 : 1950 Gender:F Ordering : DR RINKU PETERSON . Admission #: [id number] Family : Order #: [id number] CLICK HERE TO VIEW EXAM RADIOLOGY REPORT [...] prostate cancer at age 60. LOCATION: [facility] BREAST COMPOSITION: Heterogeneously dense,which may [...] MD on 02/09/2022 at 09:50 Normal [facility] Coding Summary.on 03-12-2021 Coding Summary. CD:[id number] G h0bWw+PGhlYWQ+XI6DTPX dW57ehXFygV6UZ4sEWN3U RIOBNSDBUC0TCE2kjDB3P MlaJ8NiwzJf HigmnIAdVZ48YOv7PEF1u QvxRNzmeG6cfGAjC7b0Jn FqSA49rI20OTgyUFWjYiI 3LjZpbjsgbWFy A6gpWyGcaQMdMcp+PHRhY mxlIHdpZHRoPScxMDAlJy JisShiJD6qSh2wOKFzNHM vbGxhcHNlOiBj w6kyTWAeWDuyJG8gqLecL 3FpzGW0WORav9b5Cj32aS I+JEWgYAQ2rYnmVHbqe18 1TdUkz5dzZQX2 vSXbCCuhOJS2T24gu5L3V UBwAVFeMKI7pHK4fE3huQ icrqrqW4RinGJnTwA5RMY 5eIDtzX3zhQmy kvohvN8zAnf+T03RXQ9PW RTWEC3WUfc5G8QkXpqcyK I+LL13VNFqDQ33qIIdiHL ku7hugSs3TcQq EILhXJU4cDoxCRunr9SmI TZyA94ylIGbd1N2RECdlC fhjIXbKoLvkYZ9nZ6uOXj hzpjxj9hmgzas Oykuy8txje98kU47V31nR ApkOMTbNZT5OXXfVWHwpE qggo5tqQ9lEm0+JUpop0q um2rlcRi5WbAy UNZjmmQjqYfzWYM1m6RhH m36W3NheAqck4ExVwe8qp 20qNTdm2A0wIE4YXlfDCT buQ8oNPmaPkJ8 VAJnJlTstX36mHDcTAlsI h4tgRfxqKojFF0lSFDnni hzIDSatG9bFVWoyFXzxYr yBS2vDYOmkvio b492RjVjTEB4QCXgoRRbB 7PqgS6wTlYfGGPwSTBvD0 VzkBOwYZpjO277RBicFbD 0JIPnuuTcT5Gv CZHqsOolOpA1m4R7No8Jh 3IncnvbQVA7PNghBUL3Vi X1ZjFsUlU3F7VfSzy1KMF yzKgeQV6eM5Ae JCXlqlyqituvjYU6FBThZ RSklY84aNAeRPurOj9ov1 M6r429PTVzJLOglX97Uz5 udDogMTBwdCBU nK1zcinfg4bjawokDvXcJ XIjIRp1VXf0GUBoiDdrAy XhUKQ8CeW2BCA4cMYgyS0 ofMfvjjfwcB8j Oyc+S17jlP4vIII8QLL3e wqhFOCzanXmSQ24YH35B0 RyPjwvdGFibGU+PGRpdiB xsHdcFC2jYiWv w8mqp1NsVJtcE4QzUWHlC FqhJsn5VALhMPS0uBI2dA 8sMDDwFGxbu5F6bWS3E5H akvZaiv8qm3yw ZIAsONlxI96uiNRdi7M4D CRrpTB4MQHcuMqyGhSfhN 93Oyc+YJIyvNdjj6TsAav hn2slu8gcxSt9 PdNgFEYlaiQgfJymEJN6y 2HgCz81B95zBYxtPOOtVH HcBBPzMMFklMhnih0hlB5 wIi8+PGNvbCB3 kSW2pH3tSPXwVjC8TPwiP 084KxYkzIHbQxplf2dwj2 lupZh1BvOgUDEfyxTsnMl yNNA4b0KpSq42 S51dENsaHTCfBLXmPZFcD LOlpWffhw5ayH3rWm8+PC 7gq6qhzb22dV91iHN+PHR ySQB7tPwnZGcd RYJgeM5uIBmlMhS6DKLdV kNucV17zCDfFJcsJm1yiO jqgIveOT5cQFKzjtmen13 1MvJsq9anGSTp oNUxQZdmVLX1C79py8C0D OCrSAKnEJZ0vSL2xS7mmV lnbjogbGVmdDsgdmVydGl aVFgrPMqbJ955 IHRvcDsnPlBhdGllbnQgT dOyPAp8E5AwXmo2PQDuzP cnXN0wjURrCHhoGx8bqBi gfFxqPD9eCWSb cgogj566UxMkx9jvRZQsd KTlZDgbAEL1X84zg9Q8LQ BsMMMpNBP6tCC8zU3crEp nbjogbGVmdDsg vsWyaIosBOdhMUuhP357C HRvcDsnPkJpcnRoIERhdG Y1GS10TU07sTYdp4A6xRH 7X3JrCVTmabgd fgbuaEW4UIJuTJUnlK90Y y7zkXpdGi0sWOMyITO6HY ZgfHAaJ2UkuZ4bEzKnIKC hKJSfD1WunARl TRvnH959TUqxFxU1XAHcu qVnQ5RcDVRotJvbEvP9t0 I0Au5QE9V9UF71XQ11wZP mz2W4aCV6D6Zi IWMafpiaznhcuCF8IENxZ DEtpY95Zk4ijLatPh1tPK DmVZO5KZIuhQTuP4GxuI7 yOiAjMDAwMDAw U6ZeuMBqIRkjF894ICxpV aJ1DGQufmQpU2CeKNQyoH grAwV7n9F8Zj4EZRn8GE7 8HM75fPTlj8X9 zWL1W2IxEQMeiwcqbxqte HF5IFJfJQCoeA76Vj5saX oiRf4sATNmGHT8REIxoBZ dU6HpbF4nFzJn OFKySGBqE7IzlVSaWNalR 338MHclLtV4DBXqhsWjW4 EbTZOevGdfIrF2n2K8Er1 JJGUtHC45YJE6 kPG5TD94IJ38E4BwRwrpz GFibGU+PHRhYmxlIHdpZH RoPScxMDAlJyBzdHlsZT0 dAh6iVKHwYAEq lBxirRFuTxKim0wtDZBdR CecJS4qpPliN9JrvGU6SH Nlo1t8Rh68H46iP7DajUI +MYWtnVE7jXZ3 sR9hNmMfYbZ1SYguL830Q uDzdWCbQjhuf9vro5vpwV o6CgA7LFRczeLhnXixHZM 2w8SbRa14D02u IHdpZHRoPSIxNSUiIHZhb Wpxhm1enU2sEn7+PGNvbC Q4kOX7kE2rNcBdHuE4JVi lZ072VuVeqWDh Bccgv7gfq2unqUa8JmMqF UEcvgKhdLlpWPV9l4PnHz 49J7KenDhdd8FcXzl2wo7 7sOWdg7N8eWZ9 M0IqDCWzhmbrsHAeuNflV P0uELNtjouwYHFzmA3oEP GtB5s4VzYhGyI5RKbaN3A xxzH6SBFzoUFj PVrkPAU4L36lx9U9JJKoB TKgLVV1lVW7qG9gfTwenq ogbGVmdDsgdmVydGljYWw bQCzfZ257IPAf eQpeOLJjsV9iSNCheHJfd WgmAJ4vJOItfxgzVtGPCq BSPWkuKTBWFwZGQwU5R5K vWlh1TBKprBjs HX5txHMaAIiuRq4igJjem GzqRO9aMVQjtdpnSIHraJ 4wIUCfyMLyoTurXQ5kUJJ mejnzc171TcQg MHA5WFDcuXZjJ7XioX1sO jNmJLCdODPqQ2ZcfKVkQK ruM807LSwdKqL0LSTfxsO tJ9BmSKFwcJfy UzD5s8R0Ot1uJa8jZB5dQ NOuSC20JD27tXCew1U3vV E6I9FyLBQfvkyksvemhMS 3LGGiLRDwzZ92 zQNvTFmyRj4ja4L8l233K QSrGEZzxE71Kb3xpYjfCM CcnXRNnE2pdgkfz2pzhzw gIzAwMDAwMDt0 HMh8OXUyrUtzCwRmQZJ7S gY3YAI5kTOaiP4baAtsnj cmwN0fPnq+NjggWWVhcnM 4W3YcClg2WEJu oXyfEW1nsPFlWIcvJa5nv TcvrOocPQ1pNXZpooruPS IegP8wPWIoeKRvnBhbZO2 nPQLdgxbdo337 YvXrPYH7WOXgbBZfL0Snf S0mFqVxHSWlOWGaU6HsgQ MkZVkhO358FAkgQgY1GOD tkxJbG5RgXWYg sVhjBzC3c7S9Cs1SOP4rc IF0V5JlGma1MSQitZugAO 2emVYqLVefUt6znPpxxKw fLQ2pQVQsmceb LLAmqS1pKYAsvADdzJzeG V8sSSNaorwsq245KeKmUY R7HCCtnHZtQ6NrqQ6cLkC dULQbIPWbJ5Lx zEQzGGseI571JBcdSeS4Z ICqpxNwN9PnSHRrlYrhGq P7e8L7Rs7ZXEUwSGHqoPU oUgL6E5AhPzng dHI+HK16WBXeGL33sPZse SRvb6aczRa1JsTuHPLfOP J7gBuqVJioh9XqWJWgG97 gdAJhr9M4AEBl gMvzoJNoDcTqaSI9dZ6oD Zjlgjasy3gvetjdLgyif4 etgf79bB01M22zMGkxOHY oPSIzMCUiIHZh aJlxig9zbG4xEp6+PGNvb KH7jAO9tT9fZwYcOdI4GY aaW120GbNqxWEaYrjrd1k yw6eitZf4WzNv WFFkqmSupFxbNCP2z8EnW g32B72dGOcvEKFyCFJoES IgHNTfrPkiiv3vxP0uNc1 +PM4fg3suxi67 qH80sXR+LEIhJKQ7mFhzN IxkSQEiwC8gVUwvPjF6AX HjUuQdzQ93oQVeTLqfMd7 kjKaqlKhyDQ6a LIRopqxgd428ObWvz2isZ XPdhXEqQCspYHR3Y76la0 A7MLPvXSEnKLH5dCK1fS7 hbGlnbjogbGVm dDsgdmVydGljYWwtYWxpZ 740RQHnlPvrHjZmkPIzU0 ivohDVXI0tYrhyeED+PHR vJWY7oRfoYPmq TYUlqQ7fCVMiI9s2ImOtT zR6GMzhC6PgkoX3GTIgvO CgIIBibWEUeW2rldhmm7z vcjogIzAwMDAw PNu2ADe2GQCvzQmnTpAvA MY7CiY8WJU7xRKntP3xvQ psdqigyD5rUbx+RklOOjw vdGQ+PHRkIHN0 gYpnPSbnUPGdpU1nWGUhJ 9y4OqEwRaP4HBweG1Wbjv P9ECXtoWHmVURzqZMCqZ4 feljkz6xusbgg KzNrEJMaLTa9KVn8JTUgx PfcXpVtHQJ0NmE0ZBU0zR PoaH6gtShnevthoZ4dLxr +TVJOOjwvdGQ+ PIRhJUB1wZlkHVrkYJVvv Y6pRGEwB9d0TiIaMrC5DX swK0NeamH6GQYfwDFaCFE qtFWImV3dsikg l4wochoqRjFuOWVzHCn7X Vy9WWQubFvwCcPbZUT2Xh H1LDD4zTEgbV7tnDxivyy gaS5dExn+UGF5 WUY2MQ83SU56K1BuJtxxp GFibGU+PHRhYmxlIHdpZH RoPScxMDAlJyBzdHlsZT0 vFb2fKHVlNVIg bGxh (more content not included)... Normal [facility] Physician Orderon 02-19-2021 Physician Order [id number]# 1.00CD:127 Normal [facility] Vital Signs Date Time Vital Sign Value Performing Clinician Facility 06-05-2024 11:30-0500 Body mass index (BMI) [Ratio] 26.25 kg/m2 Theo Ley DO Work Phone: [facility] 06-05-2024 11:30-0500 Body weight 60.96 kg Theo Jil DO Work Phone: [facility] 06-05-2024 11:30-0500 Diastolic blood pressure 80 mm[Hg] Theo Jil DO Work Phone: [facility] 06-05-2024 11:30-0500 Systolic blood pressure 130 mm[Hg] Theo Jil DO Work Phone: [facility] 03-08-2024 08:25-0400 Body height 152.4 cm Ryan Ruiz MD Work Phone: [facility] 03-08-2024 08:25-0400 Body mass index (BMI) [Ratio] 25.58 kg/m2 Ryan Ruiz MD Work Phone: [facility] 03-08-2024 08:25-0400 Body weight 59.42 kg Ryan Ruiz MD Work Phone: [facility] 03-08-2024 08:25-0400 Diastolic blood pressure 80 mm[Hg] Ryan Ruiz MD Work Phone: [facility] 03-08-2024 08:25-0400 Heart rate 62 /min Ryan Ruiz MD Work Phone: [facility] 03-08-2024 08:25-0400 SaO2% (BldA) [Mass fraction] 98 % Ryan Ruiz MD Work Phone: [facility] 03-08-2024 08:25-0400 Systolic blood pressure 130 mm[Hg] Ryan Ruiz MD Work Phone: [facility] 04-22-2023 12:20-0400 Body height 153.67 cm Broderick Solomon Other [facility] Other 04-22-2023 12:20-0400 Body mass index (BMI) [Ratio] 24.58 kg/m2 Broderick Solomon Other [facility] Other 04-22-2023 12:20-0400 Body temperature 98.3 [degF] Broderick Solomon Other [facility] Other 04-22-2023 12:20-0400 Body weight 58.06 kg Broderick Solomon Other [facility] Other 04-22-2023 12:20-0400 Respiratory rate 18 /min Broderick Solomon Other [facility] Other 04-22-2023 12:20-0400 SaO2% (BldA) [Mass fraction] 96 % Broderick Solomon Other [facility] Other Encounters Encounter Date Encounter Type Care Provider Facility Start: 07-27-2024 End: 07-27-2024 ambulatory [facility] Start: 07-25-2024 ambulatory [facility] Start: 07-25-2024 Encounter for preprocedural cardiovascular examination [facility] Start: 06-13-2024 End: 06-13-2024 [employer]irma Galvin OT Work Phone: [facility] Start: 06-13-2024 End: 06-13-2024 [employer] Amberly Galvin OT Work Phone: [facility] Start: 06-13-2024 End: 06-13-2024 ambulatory Amberly Galvin OT Work Phone: [facility] Comment on above: 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, init (Primary Dx); Left wrist pain Start: 06-12-2024 ambulatory [facility] Start: 06-09-2024 End: 06-09-2024 ambulatory Jeffery Doe OT Work Phone: [facility] Comment on above: 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, init (Primary Dx) Start: 06-05-2024 End: 06-05-2024 [employer] Theo Jil DO Work Phone: [facility] Start: 06-05-2024 End: 06-14-2024 Bamboo flowsheet Theo Jil DO Work Phone: [facility] Start: 06-05-2024 End: 06-14-2024 Clinisync Result Encounter Theo Jil DO Work Phone: [facility] Department Unsolicited Start: 06-05-2024 End: 06-05-2024 Patient encounter procedure Theo Jil DO Work Phone: [facility] Work Phone: Start: 06-05-2024 End: 06-05-2024 Periodic preventive med est patient 65yrs& older Theo Jil DO Work Phone: [facility] Comment on above: Well woman exam with routine gynecological exam; Breast cancer screening by mammogram; Postmenopausal state Start: 06-05-2024 End: 06-05-2024 ambulatory THEODeborah SUNO Not Available Start: 05-30-2024 End: 05-30-2024 Bamboo WatchGuardheet Amberly Galvin OT Work Phone: [facility] Start: 05-30-2024 End: 05-30-2024 Bamboo WatchGuardheet Amberly Galvin OT Work Phone: [facility] Start: 05-30-2024 End: 05-30-2024 ambulatory Amberly Galvin OT Work Phone: [facility] Comment on above: Left wrist pain (Erica jerardo Dx); Oth intartic fracture of lower end of left radius, init Start: 05-26-2024 End: 05-26-2024 Bamboo flowsheet Amberly Galvin OT Work Phone: [facility] Start: 05-26-2024 End: 05-26-2024 Bamboo flowsgirma Galvin OT Work Phone: [facility] Start: 05-26-2024 End: 05-26-2024 ambulatory Amberly Galvin OT Work Phone: [facility] Comment on above: Left wrist pain (Erica jerardo Dx); Oth intartic fracture of lower end of left radius, init Start: 05-24-2024 ambulatory [facility] Start: 05-23-2024 End: 05-23-2024 Bamboo flowsgirma Galvin OT Work Phone: [facility] Start: 05-23-2024 End: 05-23-2024 Bamboo flowsgirma Galvin OT Work Phone: [facility] [...] Dx); Left wrist pain Start: 05-08-2024 ambulatory [facility] Start: 04-26-2024 ambulatory [facility] Start: 03-31-2024 ambulatory [facility] Start: 03-09-2024 End: 03-09-2024 Clinisync Result Encounter Ryan Ruiz MD Work Phone: [facility] Department Unsolicited Start: 03-09-2024 End: 03-09-2024 Clinisync Result Encounter Ryan Ruiz MD Work Phone: [facility] Unsolicited Start: 03-08-2024 End: 03-08-2024 Bamboo flowsheet Ryan Ruiz MD Work Phone: [facility] Start: 03-08-2024 End: 03-08-2024 Bamboo flowsheet Ryan Ruiz MD Work Phone: [facility] Start: 03-08-2024 End: 03-08-2024 Office outpatient visit 25 minutes Ryan Ruiz MD Work Phone: [facility] Comment on above: Paroxysmal atrial fi brillation (CMS/HCC) (Primary Dx); Mixed hyperlipidemia (CMS/HCC); Essential hypertension (CMS/HCC); Other thrombophilia (CMS/HCC); Pulmonary hypertension, unspecified (CMS/HCC); Nonobstructive atherosclerosis of coronary artery (CMS/HCC) Start: 03-08-2024 End: 03-08-2024 ambulatory RYAN RUIZ Not Available Start: 02-01-2024 End: 02-01-2024 ambulatory [facility] Start: 01-13-2024 End: 01-13-2024 ambulatory [facility] Start: 12-10-2023 End: 12-10-2023 ambulatory [facility] Start: 12-06-2023 End: 12-06-2023 ambulatory RYAN RUIZ Not Available Start: 11-24-2023 End: 11-24-2023 ambulatory [facility] Start: 11-03-2023 ambulatory [facility] Start: 10-28-2023 End: 10-28-2023 ambulatory [facility] Start: 04-22-2023 End: 04-22-2023 ambulatory Broderick Solomon Other [facility] Other Start: 04-22-2023 Office outpatient vi sit [...] 02-10-[address] RINKU PETERSON . Facility: Procedures Date Procedure Procedure Detail Performing Clinician Start: 06-05-2024 IGP,APTIMA HPV,AGE GDLN Generic External Data Provider Start: 03-09-2024 ALL LIPID PROFILE (FASTING) Ryan Ruzi MD Work Phone: Start: 02-18-2024 Mammography Ryan corona MD Work Phone: Plan of Treatment Date Care Activity Detail Author Start: 06-07-2025 End: 06-07-2025 Patient encounter procedure 06/07/2025 9:00 AM EST Office Visit [facility] [address] [place] [address] Laura Jones PA [address] [place] [address] [place] [address] [facility] Start: 06-05-2025 Medicare Annual Wellness (AWV) Medicare Annual Wellness (AWV) [facility] Start: 02-17-2025 Screening for malign ant neoplasm of breast Mammogram [facility] Start: 09-06-2024 End: 09-06-2024 Patient encounter procedure 09/06/2024 8:30 AM EST Office Visit [facility] [address] [facility] [address] [place] [address] Ryan Ruiz MD [address] [facility] [place] [address] [place] [address] [facility] Start: 06-20-2024 End: 06-20-2024 ambulatory 06/20/2024 9:00 AM EST Treatment [facility] [address] [facility] [address] [place] [address] ArmenAmberly head, OT [address] [facility] [place] [address] [place] [address] [facility] Start: 06-16-2024 End: 06-16-2024 ambulatory 06/16/2024 1:00 PM EST Treatment [facility] [address] [facility] [address] [place] [address] Jeffery Doe, OT [address] [place] [address] [facility] Start: 06-13-2024 End: 06-13-2024 ambulatory [facility] Comment on above: Arrived Start: 06-05-2024 End: 06-05-2025 DXA Skeletal system [...] [address] [place] [address] [place] [address] Amberly Galvin, OT [address] [facility] [address] [place] [address] [facility] Start: 05-26-2024 End: 05-26-2024 ambulatory [facility] Comment on above: Arrived Start: 05-23-2024 End: 05-23-2024 ambulatory 05/23/2024 11:00 AM EST Treatment [facility] [address] [facility] [address] [place] [address] Amberly Galvin, OT [address] [facility] [address] [place] [address] [facility] Start: 05-19-2024 End: 05-19-2024 ambulatory 05/19/2024 11:00 AM EST Treatment [facility] [address] [facility] [address] [place] [address] Amberly Galvin, OT [address] [place] [address] [place] [address] [facility] Start: 05-16-2024 End: 05-16-2024 ambulatory 05/16/2024 2:00 PM EST Treatment [facility] [address] [facility] [address] [place] [address] Amberly Galvin, OT [address] [place] [address] [place] [address] [facility] Start: 03-08-2024 End: 03-08-2025 Lipid 1996 panel - Serum or Plasma Lipid panel Lab Routine Mixed hyperlipidemia (CMS/HCC) Expected: 03/08/2024 (Approximate), Expires: 03/08/2025 [facility] Work Phone: Comment on above: Expected: 03/08/2024 (Approximate), Expires: 03/08/2025 Start: 03-08-2024 End: 03-08-2024 Patient encounter procedure 03/08/2024 8:30 AM EDT Office Visit [facility] [address] [facility] [address] [place] [id number] Ryan Ruiz MD [address] [facility] [address] [place], [place] [id number] Arrived [facility] Comment on above: Arrived Start: 03-05-2024 Influenza vaccination Influenza Vacc ine (#1) [facility] Start: 2017 Pneumococcal Vaccine : 65+ Years (1 of 1 - PCV) Pneumococcal Vaccine: 65+ Years (1 of 1 - PCV) [facility] Start: 1958 Pneumococcal Vaccine : 65+ Years (1 of 2 - PCV) Pneumococcal Vaccine: 65+ Years (1 of 2 - PCV) [facility] Start: 1952 Screening for malign ant neoplasm of colon [facility] THIN PREP TIS PAP AN D HR HPV DNA THIN PREP TIS PAP AND HR HPV DNA Pathology and Cytology Routine Well woman exam with routine gynecological exam Ordered: 06/05/2024 [facility] Comment on above: Ordered: 06/05/2024 Immunizations Immunization Date Immunization Notes Care Provider Henry greenberg 12-19-2016 tetanus toxoid, reduced diphtheria toxoid, and acellular pertussis vaccine, adsorbed Broderick [place] Other [facility] Other Payers Date Payer Category Payer Medicaid [employer] MEDICARE A DVANTAGE [id number] 2021 Medicare A[employer]NA MEDICARE A DVANTAGE AETNA MEDICARE REPLACEMENT [id number] 2021-Present [address] [place] [address] [id number] 1959 Medicare [id number] 1952 Unknown [id number] 1952 Unknown [id number] [id number]3 1952 Unknown [id number] 2.16.840.1.313937.3.579.2.593 1952 Unknown [id number] 2.16.840.1.836797.3.579.2.593 1952 Unknown [id number] 2.16.840.1.972619.3.579.2.593 1952 Unknown [id number] 2.16.840.1.334389.3.579.2.593 1952 Unknown [id number] 2.16.840.1.406413.3.579.2.593 1952 Unknown [id number] 2.16.840.1.368760.3.579.2.1259 1952 Unknown [id number] 2.16.840.1.026767.3.579.2.9 1952 Unknown [id number] 2.16.840.1.068952.3.579.2.9 1952 Unknown [id number] 2.16.840.1.442869.3.579.2.1258 1952 Unknown [id number] 2.16.840.1.453109.3.579.2.9 1952 Unknown [id number] 2.16.840.1.825319.3.579.2.1258 1952 Unknown [id number] 2.16.840.1.287208.3.579.2.1258 1952 Unknown [id number] 2.16.840.1.934015.3.579.2.1258 1952 Unknown [id number] 2.16.840.1.044259.3.579.2.1258 1952 Unknown [id number] 2.16.840.1.392047.3.579.2.1258 1952 Unknown [id number] 2.16.840.1.520347.3.579.2.9 Social History Date Type Detail Facility Unknown if ever smoked [facility] Other Start: 12-06-2023 End: 03-08-2024 Sex Assigned At [facility] Start: 12-31-2022 Tobacco smoking status NHIS Never smoked tobacco [facility] Start: 12-31-2022 Tobacco use and exposure Smokeless tobacco non-user [facility] Start: 12-06-2023 End: 03-08-2024 Alcoholic beverage intake Lifetime non-drinker (finding) [facility] Start: 12-06-2023 End: 03-08-2024 History of Social function [facility] Start: 1950 Sex assigned at Female [facility] Start: 12-25-2023 Gender identity Identifies as female gender (finding) [facility] NEGATED: Highlighted rowStart: BARBARAF History of tobacco use Passive smoker [facility] Clinical Notes 04-22-2023 to 07-27-2024 Amberly Galvin, OT - 06/13/2024 1:00 PM Jose Miguel Doe, OT - 06/09/2024 9:30 AM Dorys Jones, PA - 06/05/2024 11:00 AM Shmueleliza Galvin, OT - 05/30/2024 11:00 AM EST Note Date & Type Note Facility 07-27-2024 Note [facility] Consult Note Reason for visit: Patient here for 6 mo follow up CAD, PAF, hypertension, and hyperlipidemia. Had lipid panel in Mar 2024. She's been doing very well. Denies chest pain, SOB, palpitations, lightheadedness/syncope, and bleeding on Eliquis. She thinks Dr. Ruiz reduced her lisinopril-hydrochlorothiazide at some point since last visit due to hypotension. 07/27/2023 Doing very well 02/01/2024 Since last seen she has been [...] or signs patient was recently seen in [facility] 08/2022 for palpitations. She was found [...] palpitations, lightness, dizziness, fatigue 08/2022 ECG by [facility]- appears to be sinus tach with [...] alcohol infrequently, no significant caffeine intake, no sfnh-xea-vegphac decongestions Family history: Her mother of a brain aneurysm, no history of premature coronary artery disease, no history of arrhythmias Medications: Eliquis 5 mg p.o. twice daily, lisinopril 10/hydrochlorothiazide 12.5 mg daily, Toprol-XL 50 mg daily, Zocor 10 mg daily -- 03/03/[address] Harding c?c; Afib H?PI: 71-year-old woman with HTN was [...] alcohol infrequently, no significant caffeine intake, no rqrk-usj-iivkvug decongestions Family history: Her mother of a [...] ventricle is normal in size and systolic functio (more content not included)... [facility] 06-13-2024 History of Present illness Narrative Occupational Therapy Occupational Therapy Discharge Visit Patient Name: Sharri Cooney Today's Date: 06/13/2024 Linked Episodes Type: Episode: Status: Noted: Resolved: Last update: Updated by: Occupational Therapy Reji campoverde fx Active 05/09/2024 06/13/2024 3:13 PM Amberly Galvin OT Comments: Visit number: 01/13 Timed Code Treatment minutes: 60 Total Treatment Time: 60 Subjective Pain: 0/10 I have been doing everything and really had no pain. I saw the doctor and he didn't say much other than it was up to me the wrist looks great Overall progress:improving Objective: 30' Reviewed all goals. See assessment for updates. - extended MT complete to wrist/forearm for [...] to 3# handweight complete. T-putty for added category specialist strengthening complete with good toleration. Encouraged ice/ biofreeze for soreness at night. Pt verbalized understanding of all education. Treatment: Manual: STM/ DTM along the L wrist Therapeutic Exercise: light strengthening of the wrist/forearm. Therapeutic Activity: Modalities: Neuro Re-Ed: Assessment/Plan Short Term Goals: Pt will be independent with home exercise program for light strengthening and ROM at discharge. GOAL MET Penitentiary Goals: PRWHE Pain Score < 5/50 ( IE: 13/50) GOAL MET 3/50 PRWHE Functional Score <3/100 ( IE: 7/100 ) GOAL MET 3/100 Increase wrist ROTHMAN to at least 90% pain free at discharge. (IE: 71%) GOAL NOT MET 86.5% - progressing with HEP. Pt to increase category specialist strength by 10# and LP by 2# pain free at discharge. ( L hand 6# LP: 2# ) GOAL MET L category specialist 20# LP: 5#) Pt will be able to use Left UE in light daily activities.GOAL MET Pt tolerated session well and has met all goals with the exception of range of motion of the wrist at 86.5%. This will continue to improve with established HEP. Pt confident of HEP. Will reach out to us should any issues arise. P : discharge after 30 days. documented in this encounter [facility] 06-09-2024 History of Present illness Narrative Occupational Therapy Occupational Therapy Evaluation Visit Patient Name: Sharri Cooney Today's Date: 06/09/2024 Linked Episodes Type: Episode: Status: Noted: Resolved: Last update: Updated by: Occupational Therapy L wrist fx Active 05/09/2024 06/09/2024 9:31 AM Amberly Galvin OT Comments: Occupational Therapy Occupational Therapy Treatment Visit Patient Name: Sharri Cooney Today's Date: 06/09/2024 Linked Episodes Type: Episode: Status: Noted: Resolved: Last update: Updated by: Occupational Therapy L wrist fx Active 05/09/2024 06/09/2024 9:31 AM Amberly Galvin OT Comments: Occupational Therapy Occupational Therapy Treatment Visit Patient Name: Sharri Cooney Today's Date: 06/09/2024 Linked Episodes Type: Episode: Status: Noted: Resolved: Last update: Updated by: Occupational Therapy L wrist fx Active 05/09/2024 06/09/2024 9:31 AM Amberly Galvin OT Comments: Visit number: 01/13 Timed Code Treatment minutes: 54 Total Treatment Time: 54 Subjective Pain: 0/10. No pain unless I try to use it then its 5/10 Overall progress:improving Objective: 30' - extended MT [...] to 3# handweight complete. T-putty for added category specialist strengthening complete with good toleration. Encouraged ice/ [...] progress per toleration. documented in this encounter [facility] 06-05-2024 History of Present illness Narrative Reason for Appointment: Patient ID: Sharri Cooney is a 73 y.o. female who presents for [facility] Visit Patient presents today for Annual [...] Noted Anxiety disorder, unspecified 10/28/2023 Atrial fibrillation ([facility]) 02/24/2021 Benign hypertensive heart disease without congestive heart failure ([facility]) 10/29/2023 Essential hypertension ([facility]) 12/30/2022 Hypokalemia 10/29/2023 Hypomagnesemia 10/29/2023 Mass of left adrenal gland ([facility]) 12/30/2022 Mixed hyperlipidemia ([facility]) 10/29/2023 Nonrheumatic mitral valve regurgitation 12/30/2022 Pulmonary hypertension ([facility]) 12/06/2023 Osteopenia of multiple sites 12/06/2023 Nonobstructive atherosclerosis of coronary artery (CMS/HCC) 03/08/2024 Oth intartic fracture of lower end [...] nursing note reviewed. Exam conducted with a wheel and caster repairer present. Vitals: Estimated body mass index is 26.25 kg/m as calculated from the following: Height as of 24: 5'. Weight as of this encounter: 134 [...] Theo Ley DO documented in this encounter [facility] 05-30-2024 History of Present illness Narrative Occupational [...] to 3# handweight complete. T-putty for added category specialist strengthening complete with good toleration. Encouraged ice/ [...] progress per toleration. documented in this encounter [facility] 05-26-2024 History of Present illness Narrative Occupational Therapy Occupational Therapy Treatment Visit Patient Name: Sharri Cooney Today's Date: 05/26/2024 Linked Episodes Type: Episode: Status: Noted: Resolved: Last update: Updated by: Occupational Therapy L wrist fx Active 05/09/2024 05/26/2024 11:02 AM Amberly Galvin OT Comments: Visit number: 11/13 Timed Code Treatment minutes: 60 Total Treatment Time: 60 Subjective Pain: 210. It is feeling good today. 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 T-putty for added category specialist strengthening complete with good toleration. Encouraged ice/ [...] progress per toleration. documented in this encounter [facility] 05-23-2024 History of Present illness Narrative Occupational Therapy Occupational Therapy Treatment Visit Patient Name: Sharri Cooney Today's Date: 05/23/2024 Linked Episodes Type: Episode: Status: Noted: Resolved: Last update: Updated by: Occupational Therapy L wrist fx Active 05/09/2024 05/23/2024 12:54 PM Amberly Galvin OT Comments: Visit number: 10/14 Timed Code Treatment minutes: 60 Total Treatment Time: 60 Subjective Pain: 08/14. I carried all my [place] totes up and was surprised I could [...] to 2# handweight complete. T-putty for added category specialist strengthening complete with good toleration. Trialed weightbearing [...] progress per toleration. documented in this encounter [facility] 05-19-2024 History of Present illness Narrative Occupational Therapy Occupational Therapy Treatment Visit Patient Name: Sharri Cooney Today's Date: 05/19/2024 Linked Episodes Type: Episode: Status: Noted: Resolved: Last update: Updated by: Occupational Therapy L wrist fx Active 05/09/2024 05/19/2024 11:21 AM Amberly Galvin OT Comments: Visit number: 09/13 Timed Code Treatment minutes: 60 Total Treatment Time: 60 Subjective Pain: 08/14. I have been able to do more [...] to 2# handweight complete. T-putty for added category specialist strengthening complete with good toleration. Trialed weightbearing [...] progress per toleration. documented in this encounter [facility] 05-16-2024 History of Present illness Narrative Occupational Therapy Occupational Therapy Treatment Visit Patient Name: Sharri Cooney Today's Date: 05/16/2024 Linked Episodes Type: Episode: Status: Noted: Resolved: Last update: Updated by: Occupational Therapy L wrist fx Active 05/09/2024 05/16/2024 1:54 PM Amberly Galvin OT Comments: Visit number: 08/16 Timed Code Treatment minutes: 60 Total Treatment Time: 60 Subjective Pain: 08/14. It hurts on the opposite side of [...] to 2# handweight complete. T-putty for added category specialist strengthening complete with good toleration. Trialed weightbearing [...] progress per toleration. documented in this encounter [facility] 05-09-2024 History of Present illness Narrative Occupational [...] deviation: 4/5. Pronation: 4/5. Supination: 4/5. L category specialist strength: 6# LP: 2# R category specialist strength: 35# LP: 9# Treatment: Education: HEP [...] for light strengthening and ROM at discharge. Penitentiary Goals: PRWHE Pain Score < 5/50 ( IE: 13/50) PRWHE Functional Score <3/100 ( IE: 7/100 ) Increase wrist ROTHMAN to at least 90% pain free at discharge. (IE: 71%) Pt to increase category specialist strength by 10# and LP by 2# pain free at discharge. ( L hand 6# LP: 2# ) Pt will be able to use ;eft UE in light daily activities. Pt will benefit from skilled OT to address the above impairments for 2x/week for 4 weeks. I hereby deem this POC medically necessary. Please sign below. Date: documented in this encounter [facility] 03-08-2024 History of Present illness Narrative Subjective Patient ID: Sharri Cooney is a 73 y.o. female who presents for Hypertension. Hypertension Patient is here for follow-up of elevated blood pressure. Blood pressure is well controlled at home. Cardiac symptoms: none. Patient denies chest pain, chest pressure/discomfort, claudication, irregular heart beat, lower extremity edema, near-syncope, orthopnea, palpitations, paroxysmal nocturnal dyspnea, syncope, and tachypnea. Cardiovascular risk factors: advanced age (older than 55 for men, 65 for women). Hypertension Pertinent negatives include no chest pain, palpitations or shortness of breath. Current Outpatient Medications on File Prior to Visit Medication Sig Dispense Refill apixaban (Eliquis) 5 MG tablet Take 1 tablet by mouth in the morning and 1 tablet before bedtime. Calcium 600-5 MG-MCG tablet Take by mouth Cholecalciferol (Vitamin D) 10 MCG/ML liquid Take by mouth Cranberry 500 MG capsule Take by mouth lisinopril-hydroCHLOROthiazide 10-12.5 MG tablet Take 1 tablet by mouth in the morning. as directed. Magnesium Oxide -Mg Supplement 400 MG capsule metoprolol succinate XL (Toprol-XL) 50 MG 24 hr tablet Take 50 mg by mouth in the morning. potassium chloride CR (Klor-Con) 10 MEQ ER tablet Take 10 mEq by mouth in the morning. sertraline (Zoloft) 50 MG tablet Take 50 mg by mouth Daily simvastatin (Zocor) 10 MG tablet Take 10 mg by mouth in the morning. No current facility-administered medications on file prior to visit. I have reviewed and reconciled the history and medication list with the patient today. 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 Sulfacetamide Hives Social History Tobacco Use Smoking status: Never Passive exposure: Never Smokeless tobacco: Never Substance Use Topics Alcohol use: Never Drug use: Never Family History Problem Relation Name Age of Onset Aneurysm Mother Hypertension Mother Cancer Father Past Medical History: Diagnosis Date Guillain Jarquin syndrome (CMS/HCC) Hypertension (CMS/HCC) Past Surgical History: Procedure Laterality Date BREAST SURGERY Left cyst removal BUNIONECTOMY EYE SURGERY LOOP RECORDER IMPLANT Left 11/25/2023 TUBAL LIGATION Visit Vitals BP 130/80 Pulse 62 Ht 5' Wt 131 lb SpO2 98% BMI 25.58 kg/m Smoking Status Never BSA 1.59 m Review of Systems Constitutional: Negative for chills, fatigue and fever. Respiratory: Negative for cough, shortness of breath and wheezing. Cardiovascular: Negative for chest pain, palpitations and leg swelling. Gastrointestinal: Negative for abdominal pain, constipation, diarrhea, nausea and vomiting. Skin: Negative for rash. Objective Physical Exam Constitutional: General: She is not in acute distress. Appearance: Normal appearance. She is well-developed. HENT: Head: Normocephalic and atraumatic. Eyes: General: No scleral icterus. Conjunctiva/sclera: Conjunctivae normal. Cardiovascular: Rate and Rhythm: Normal rate and regular rhythm. Heart sounds: Normal heart sounds. No murmur heard. Pulmonary: Effort: Pulmonary effort is normal. No respiratory distress. Breath sounds: Normal breath sounds. No wheezing, rhonchi or rales. Skin: General: Skin is warm and dry. Neurological: General: No focal deficit present. Mental Status: She is alert and oriented to person, place, and time. Psychiatric: Mood and Affect: Mood normal. Behavior: Behavior normal. Assessment/Plan Diagnoses and all orders for this visit: Paroxysmal atrial fibrillation (CMS/HCC) - Currently in NSR, on Metoprolol and OAC. Mixed hyperlipidemia (CMS/HCC) - Lipid panel; Future Essential hypertension (CMS/HCC) - BP is low at times. Cut Lisinopril tablets in half, take 1/2 tab daily. Other thrombophilia (CMS/HCC) Pulmonary hypertension, unspecified (CMS/HCC) Nonobstructive atherosclerosis of coronary artery (CMS/HCC) - By recent heart cath, reviewed. Follow up in about 6 months (around 09/05/2024) for Routine F/U. documented in this encounter [facility] 02-01-2024 Note [facility] Consult Note Reason [...] complaints of chest pain, shortness of breath, HERANNDEZ, LE edema she had TTE 01/2023 which [...] to evaluate for pulmonary hypertension 12/2022 HPI: hSarri Cooney is a 73 y.o. year old [...] or signs patient was recently seen in [facility] 08/2022 for palpitations. She was found [...] palpitations, lightness, dizziness, fatigue 08/2022 ECG by [facility]- appears to be sinus tach with [...] alcohol infrequently, no significant caffeine intake, no omag-dok-sxsjehx decongestions Family history: Her mother of a brain aneurysm, no history of premature coronary artery disease, no history of arrhythmias Medications: Eliquis 5 mg p.o. twice daily, lisinopril 10/hydrochlorothiazide 12.5 mg daily, Toprol-XL 50 mg daily, Zocor 10 mg daily -- 03/03/[address] Stephanie estevez?c; Afib H?PI: 71-year-old woman with HTN [...] alcohol infrequently, no significant caffeine intake, no ztfp-edv-pgwsjxs decongestions Family history: Her mother of a [...] Not on file (more content not included)... [facility] 02-01-2024 Note Patient here for fol low up heart cath with Dr. Peter on 01/13/2024. Says she's been feeling good. Denies chest pain, SOB, palpitations, lightheadedness/syncope, and bleeding on Eliquis. BP's from home are low at times. Review of Systems All other systems reviewed and are negative. [facility] 01-13-2024 Note Cardiovascular Labor atory Report FINAL [...] left radial artery was obtained. A 6 Divehi glide sheath was inserted without difficulty. Difficulty [...] is angiographically nonobstructive. INDICATIONS: Abnormal stress test [facility] 12-14-2023 [facility] This report has been cancelled. [facility] 12-01-2023 Note Error [facility] 11-25-2023 Note FYI - I made patient aware that we will proceed with coronary angiogram. I placed the orders but EPIC is being EPIC and won't let me close the encounter so working with IT on this. Thx [facility] 11-25-2023 Note EKG portion was posi tive for inferior ischemia. Nuc imaging was negative for ischemia. Her sx's are dyspnea. We are looking to start flecanide for her for her a.fib. Should we proceed with cath or coronary CTA? Thanks! [facility] 11-25-2023 Note Do we have the exerc ise portion results? [facility] 11-24-2023 Note LOOP IMPLANT PROCEDU RE NOTE DATE OF PROCEDURE: 11/24/23 PERFORMING PHYSICIAN: Dr. Turner Harding ZYGLO TECHNICIAN: NA INDICATIONS FOR PROCEDURE: 1. SVT/AF [...] the sternum on the left using the GetBulb tool. The loop recorder was then injected [...] Turner Harding MD Cardiac Electrophysiology. [facility] 11-03-2023 Note [facility] Consult Note Reason for visit: 6 [...] or signs patient was recently seen in [facility] 08/2022 for palpitations. She was found [...] palpitations, lightness, dizziness, fatigue 08/2022 ECG by [facility]- appears to be sinus tach [...] alcohol infrequently, no significant caffeine intake, no mklj-xch-preiloz decongestions Family history: Her mother of a brain aneurysm, no history of premature coronary artery disease, no history of arrhythmias Medications: Eliquis 5 mg p.o. twice daily, lisinopril 10/hydrochlorothiazide 12.5 mg daily, Toprol-XL 50 mg daily, Zocor 10 mg daily -- 03/03/[address] Stephanie estevez?c; Afib H?PI: 71-year-old woman with HTN [...] alcohol infrequently, no significant caffeine intake, no zobp-fgm-aiknbkb decongestions Family history: Her mother of a [...] on file Intimate Partner Violence: Unknown (08/26/2023) [place] Safety & Environment Fear of Current or Ex-Partner: Not on file Emotionally Abused: Not on file Physically Abused: Not on file Sexually Abused: Not on file Physically or Sexually Abused: Not on file Depression: Not on file Housing Stability: Not on file U (more content not included)... [facility] 10-28-2023 Note [place] Electrophysiology Consult Note Reason [...] or signs patient was recently seen in [facility] 08/2022 for palpitations. She was found [...] palpitations, lightness, dizziness, fatigue 08/2022 ECG by [facility]- appears to be sinus tach with [...] alcohol infrequently, no significant caffeine intake, no kdgk-djt-occfrdu decongestions Family history: Her mother of a brain aneurysm, no history of premature coronary artery disease, no history of arrhythmias Medications: Eliquis 5 mg p.o. twice daily, lisinopril 10/hydrochlorothiazide 12.5 mg daily, Toprol-XL 50 mg daily, Zocor 10 mg daily -- 03/03/[address] Stephanie estevez?c; Afib H?PI: 71-year-old woman with HTN [...] alcohol infrequently, no significant caffeine intake, no xuuv-nrq-ujcgnps decongestions Family history: Her mother of a [...] Violence (more content not included)... [facility] 10-28-2023 Note Patient here for [facility] for afib. Says she recently [...] systems reviewed and are negative. [facility] 04-22-2023 Evaluation note Encounter Date Diagnosis Assessment [...] see your pcp. Take tylenol as needed. Violet Grey Other Evaluation note* Diagnosis Oth intartic fracture [...] (age-related) (natural) [facility] Diagnosis Oth intartic fracture of lower end of left radius, init- Primary documented [facility]* Diagnosis Oth intartic fracture of lower end of left radius, init- Primary Left wrist pain Pain in joint, forearm documented [facility]* Diagnosis Paroxysmal atrial fibrillation (CMS/HCC)- Primary Atrial fibrillation Mixed hyperlipidemia (CMS/HCC) Mixed hyperlipidemia Essential hypertension (CMS/HCC) Unspecified essential hypertension Other thrombophilia (CMS/HCC) Pulmonary hypertension, unspecified (CMS/HCC) Nonobstructive atherosclerosis of coronary artery (CMS/HCC) documented [facility] this encounter [facility] Narrative - Reported* Type Description Date Medical History HTN Medical History HYPERLIPIDEMIA Medical History SHINGLES Medical History GUILLAIN-BARRE SYNDROME Medical History Afib Surgical History TUBALIGATION Surgical History EYE SURGERY Surgical History MACULAR HOLE Surgical History LUMP REMOVED FROM LEFT BREAST Surgical History bunionectomy Hospitalization History 3 CHILD BIRTHS Hospitalization History GUILLAIN-BARRE SYNDROME Violet Grey Other Reason for visit Narrative* Rehabilitation - Outpatient (Routine) - Authorized Specialty Diagnoses / Procedures Referred By Contac t Referred To Contact Occupational Therapy / Physical Therapy Diagnoses Other intraarticular fracture of lower end of left radius, subsequent encounter for closed fracture with routine healing PO L Wrist Procedures FL OCCUPATIONAL THERAPY EVALUATION EVALUATION Tiffanie Villanueva MD [address] [id number] Phone: tel: fax: Amberly Galvin, OT [address] [place] [address] Phone: tel:[phone] fax:[phone] Referral ID Status Reason Start Date Expiration Date V isits Requested Visits Authorized [id number] Authorized 05/09/2024 11/05/2024 99 99 [facility] N[facility]* Rehabilitation - Outpatient (Routine) - Closed Specialty Diagnoses / Procedures Referred By Nemesio t Referred To Contact Occupational Therapy / Physical Therapy Diagnoses Other intraarticular fracture of lower end of left radius, subsequent encounter for closed fracture with routine healing PO L Wrist Procedures [place] OCCUPATIONAL THERAPY EVALUATION EVALUATION Tiffanie Villanueva MD [address] [place], [place] [address] Phone: tel: fax: Amberly Galvin, OT [address] [place] [id number] Phone: tel:[phone] fax:[phone] Referral ID Status Reason Start Date Expiration Date Visits Re quested Visits Authorized [id number] Closed 05/09/2024 11/05/2024 99 99 [facility] Summary Purpose Family History No Family History Records FoundNo Family History Records FoundNo Family History Records FoundNo Family History Records Found Advance Directives No Advanced Directives Records FoundNo Advanced Directives Records FoundNo Advanced Directives Records FoundNo Advanced Directives Records Found Additional Source Comments INFORMATION SOURCE (unrecogn ized section and content) DATE CREATED AUTHOR 03/13/2021 Vinny Christy [facility] DATE CREATED AUTHOR AUTHOR'S ORGANIZ ATION 10/30/2022 [facility] DATE CREATED AUTHOR AUTHOR'S ORGANIZ ATION 06/16/2024 [facility] DATE CREATED AUTHOR AUTHOR'S ORGANIZ ATION 07/29/2024 [facility] REASON FOR VISIT (unrecogniz ed section and content) Reason Comments Well Women Visit Reason Comments Hypertension Care Teams (unrecognized sec tion and content) 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 Relationship Specialty Start Date End Date Rinku Peterson MD [address] [place] [address] PCP - General Family Medicine 12/31/22 Grill Chef Relationship Specialty Start Date End Date Rinku Peterson MD [address] [place] [address] PCP - General Family Medicine 12/31/22 Ryan Ruiz MD [address] [address] PCP - [employer] 05/05/24 Grill Chef Relationship Specialty Start Date End Date Rinku Peterson MD [address] [place] [address] PCP - General Family Medicine 12/31/22 Ryan Ruiz MD [address] [place] [address] PCP - [employer] 05/05/24 Grill Chef Relationship Specialty Start Date End Date Rinku Peterson MD [address] [place] [address] PCP - General Family Medicine 12/31/22 Ryan Ruiz MD [address] [facility] [address] [place] [address] PCP - [employer] 05/05/24 Grill Chef Relationship Specialty Start Date End Date Rinku Peterson MD [address] [place] [address] PCP - General Family Medicine 12/31/22 Ryan Ruiz MD [address] [address] PCP - [employer] 05/05/24 Grill Chef Relationship Specialty Start Date End Date Rinku Peterson MD [address] [place] [address] PCP - General Family Medicine 12/31/22 Ryan Ruiz MD [address] [address] PCP - [employer] 05/05/24 Grill Chef Relationship Specialty Start Date End Date Rinku Peterson MD [facility] [place] [address] PCP - General Family Medicine 12/31/22 Ryan Ruiz MD [address] [address] PCP - [employer] 05/05/24 Grill Chef Relationship Specialty Start Date End Date Rinku Peterson MD [address] [place] [address] PCP - General Family Medicine 12/31/22 Ryan Ruiz MD [address] [address] PCP - [employer] 05/05/24 Grill Chef Relationship Specialty Start Date End Date Rinku Peterson MD [address] [place] [address] PCP - General Family Medicine 12/31/22 Grill Chef Relationship Specialty Start Date End Date Rinku Peterson MD [address] [place] [address] [phone] PCP - General Family Medicine 12/31/22 Grill Chef Relationship Specialty Start Date End Date Rinku Peterson MD [address] [facility] [place] [address] [phone] PCP - General Family Medicine 12/31/22 FOR RECORDS PERTAINING TO PATIENTS WHO ARE [...] BE BASED ON THE PRIMARY CLINICAL RECORDS. [employer] [facility]. provides no warranty or guarantee of the accuracy or completeness of information in this document.
== END 2024-07-31 08:41 | disposition home or self-care (01) ==
LOC: CARD 08:40
PROVIDERS: PCP Internal Medicine; Visit Provider Internal Medicine Interventional Cardiology
DX: R94.31 Abnormal electrocardiogram [ECG] [EKG] (principal); I48.91 Unspecified atrial fibrillation
CPT/HCPCS: 93306

== ENCOUNTER 2025-01-03 20:40 | Emergency (ER) | payer MEDICARE, SELFPAY ==
--- OUTSIDE RECORDS SUMMARY | 2021-02-04 09:50 | XMS_ITS | Continuity of Care Document ---
Author Organization [facility] Address [address] [place] [address] Phone Care Team Providers Care Pot Fluxer Name Role Phone Mike Callaway MD Unavailable Unavailable Allergies, Adverse Reactions, Alerts Substance Reaction Status Criticality Sulfa (Sulfonamide Antibiotics) lips and nails turned purple(severe) Active No Information Medications Medication Instructions Dosage Effective Dates (start - stop) Status Comments CALCIUM 600-VIT D3 (unknown strength) bid Not Available - Active Vitamin D3 400 unit tablet qd - Active metoprolol succinate ER 50 mg tablet,extended release 24 hr take 1 tablet by oral route every day 50 MG - Active lisinopril 10 mg-hydrochlorothiaz eli 12.5 mg tablet take 1 tablet by oral route every day 1.00 tablet - Active simvastatin 10 mg tablet take 1 (10MG) by oral route every day in the evening - Active Procedures Procedure Date Ophthal DX Image Post Retina I And R Uni Or Bi Eye Exam Established Patient Comprehensi ve 1 Or More Visits Ophthal DX Image Post Retina I And R Uni Or Bi Eye Exam Established Patient Comprehensi ve 1 Or More Visits Ophthal DX Image Post Retina I And R Uni Or Bi Eye Exam Established Patient Comprehensi ve 1 Or More Visits Ophthal DX Image Post Retina I And R Uni Or Bi Eye Exam Established Patient Comprehensi ve 1 Or More Visits OCT Medical Eye Exam, Est With Tx 8 OCT Medical Eye Exam, Est With Tx 8 OCT Medical Eye Exam, Est With Tx 8 OCT Medical Eye Exam, Est With Tx 7 OCT Medical Eye Exam, Est With Tx 7 OCT Medical Eye Exam, Established With Tx Ap r--2016 OCT Medical Eye Exam, Established With Tx De c OCT Medical Eye Exam, Established With Tx Se p Fluorescein Angiography Fluorescein Angiography Fundus Photos Medical Eye Exam, Established With Tx Ju l--2015 OCT Medical Eye Exam, Established With Tx Ma r--2015 OCT Medical Eye Exam, Established With Tx No OCT Medical Eye Exam, Established With Tx Ju Fluorescein Angiography Fluorescein Angiography Fundus Photos Medical Eye Exam, Established With Tx Ap r--2014 OCT Medical Eye Exam, Established With Tx Oc OCT Medical Eye Exam, Established With Tx Ap r--2013 OCT POSTOP FOLLOW-UP VISIT POSTOP FOLLOW-UP VISIT Fluorscein Angiography Fluorscein Angiography Fundus Photos Office Consultation, High Advance Directives Directive Yes / No Effective Date File Name No Information Encounters Encounter Description Practice Location Reason(s) For Visit Diagnoses Date Provider Providers Copied on Encounter [facility], [address] [place], [address], [place] tel:[phone] [facility] [place] ERM (chief complaint)st able vision (chief complaint) Puckering of macula, right eyeMacular cyst, hole, or pseudohole, bilateralPresence of intraocular lensBenign neoplasm of left choroidEssential (primary) hypertension 1 Nilton Vega [address], [address], [place], [place], [id number] , [place]. tel:[phone] Referring Provider: Coral John, [address] [place], [address]. [phone] [facility], [address] [place], [address], [place] tel: [phone] [facility] [place] Puckering of macula (chief complaint)st able vision (chief complaint) Puckering of macula, right eyeMacular cyst, hole, or pseudohole, left eyePresence of intraocular lensBenign neoplasm of left choroid 0 Nilton Mckeon. [address], [address], [place], [place], [id number] , [place]. tel: [phone] Referring Provider: Mike Kirkland, [address], [place], [address]. tel:[phone] [facility], [address] [place], [address], [place] tel:[phone] [facility] [place] macular pucker (chief complaint)no vision changes (chief complaint) Puckering of macula, bilateralMacular cyst, hole, or pseudohole, bilateralBenign neoplasm of left choroidPresence of intraocular lens 0 Orgel Vanessa. [address], [place], [place], [id number] , [place]. tel:[phone] Referring Provider: Vanessa Kirkland, [address], [place], [address]. tel:[phone] [facility], [address] [place], [address], [place] tel: [phone] [facility] [place] macular hole (chief complaint)st able vision (chief complaint) Puckering of macula, bilateralMacular cyst, hole, or pseudohole, bilateralBenign neoplasm of left choroidPresence of intraocular lens 9 Orgel Vanessa. [address], [address], [place], [place], [id number] , [place]. tel:[phone] Referring Provider: Coral Duvall, [address] [place], [address]. [phone] [facility], [address] [place], [address], [place] tel:[phone] [facility] [place] macular pucker (chief complaint)st able vision (chief complaint) Puckering of macula, bilateralMacular cyst, hole, or pseudohole, bilateralBenign neoplasm of left choroidPresence of intraocular lens 8 Orgel Vanessa. [address], [address], [place], [place], [id number] , [place]. tel:[phone] Referring Provider: Coral Duvall, [address] [place], [address]. [phone] [facility], [address] [place], [address], [place] tel:[phone] [facility] [place] macular pucker (chief complaint)fl oater (chief complaint)re ports no visual changes (chief complaint) Puckering of macula, bilateralMacular cyst, hole, or pseudohole, bilateralBenign neoplasm of left choroidPresence of intraocular lens 8 Orgel Vanessa. [address], [address], [place], [place], [id number] , [place]. tel:[phone] Referring Provider: Ana Mendez[address], [place], [address]. tel:[phone] [facility], [address] [place], [address], [place] tel: [phone] [facility] [place] macular pucker (chief complaint)bl urry vision (chief complaint)re ports no visual changes (chief complaint) Puckering of macula, bilateralMacular cyst, hole, or pseudohole, bilateralBenign neoplasm of left choroidPresence of intraocular lens Oct-0 8 Orgel Vanessa. [address], [address], [place], [place], [id number] , [place]. tel:[phone] Referring Provider: Vanessa Orgel K, [address], [place], [address]. tel:[phone] [facility], [address] [place], [address], [place] [phone] [facility] [place] macular pucker (chief complaint)fl oater (chief complaint)bl urry vision (chief complaint) Puckering of macula, bilateralMacular cyst, hole, or pseudohole, bilateralDrusen (degenerative) of macula, bilateralPresence of intraocular lensBenign neoplasm of left choroid Orgel Vanessa. [address], [address], [place], [place], [id number] , [place]. tel:[phone] Referring Provider: Vanessa Kirkland, [address], [place], [address]. tel:[phone] [facility], [address] [place], [address], [place] tel:[phone] [facility] [place] macular pucker (chief complaint)im provement in floaters (chief complaint)re ports no visual changes (chief complaint) Puckering of macula, bilateralMacular cyst, hole, or pseudohole, bilateralDrusen (degenerative) of macula, bilateralPresence of intraocular lensBenign neoplasm of left choroid Orgel Vanessa. [address], [address], [place], [place], [id number] , [place]. [phone] Referring Provider: Vanessa Kirkland, [address], [place], [address]. tel:[phone] [facility], [address] [place], [address], [place] tel:[phone] [facility] [place] macular hole (chief complaint)Ad ditional Information (chief complaint)no change in vision (chief complaint) Puckering of macula, bilateralMacular cyst, hole, or pseudohole, bilateralDrusen (degenerative) of macula, bilateralPresence of intraocular lensBenign neoplasm of left choroid 7 Orgel Vanessa. [address], [place], [place], [id number] , [place]. [phone] Referring Provider: Vanessa Kirkland, [address], [place], [address]. [phone] [facility], [address] [place], [address], [place] tel:[phone] R[facility] [place] macular hole (chief complaint)im proving vision (chief complaint)Ad ditional Information (chief complaint) Puckering of macula, bilateralMacular cyst, hole, or pseudohole, bilateralDrusen (degenerative) of macula, bilateralPresence of intraocular lensBenign neoplasm of left choroid 6 Orgel Vanessa. [address], [address], [place], [place], [id number] , [place]. tel:[phone] Referring Provider: Vanessa Kirkland, [address], [place], [address]. [phone] [facility], [address] [place], [place], [facility], [address], [place] tel:[phone] [facility] [place] macular hole OU (chief complaint)no noticeable change in vision (chief complaint)Ad ditional Information (chief complaint) Macular cyst, hole, or pseudohole, bilateralPuckering of macula, bilateralDrusen (degenerative) of macula, bilateralPresence of intraocular lens 6 Orgel Vanessa. [address], [address], [place], [place], [id number] , [place]. tel:[phone] Referring Provider: Vanessa Kirkland [address] [facility], [place], [address]. tel:[phone] [facility], [address] [place], [address], [place] [phone] [facility] [place] mac hole (chief complaint)th ings are brighter (chief complaint)st able vision (chief complaint) Macular cyst, hole, or pseudohole, bilateralPuckering of macula, bilateralDrusen (degenerative) of macula, bilateralPresence of intraocular lens Jan- 6 Orgel Vanessa. [address], [address], [place], [place], [id number] , [place]. tel: [phone] Referring Provider: Vanessa Kirkland, [address], [place], [address]. tel:[phone] [facility], [address] [place], [address], [place] tel: [phone] [facility] [place] macular pucker / hole (chief complaint)de crease vision (chief complaint)hi story of macular hole (chief complaint) Macular cyst, hole, or pseudohole, bilateralPuckering of macula, bilateralDrusen (degenerative) of macula, bilateralAge-relat ed nuclear cataract, right eyePresence of intraocular lens Sep- 6 Orgel Vanessa. [address], [address] , [place], [place], [id number] , [place]. tel: [phone] Referring Provider: Coral Duvall, [address] [place] [address], [address]. tel:[phone] [facility], [address] [place], [address], [place] tel: [phone] [facility] [place] decrease in vision (chief complaint)Bl ood pressure reading (chief complaint) Macular cyst, hole, or pseudohole, bilateralPuckering of macula, bilateralDrusen (degenerative) of macula, bilateralAge-relat ed nuclear cataract, right eyePresence of intraocular lens May-0 5 Orgel Vanessa. [address], [address], [place], [place], [id number] , [place]. tel: [phone] Referring Provider: Vanessa Kirkland, [address], [place], [address]. tel:[phone] [facility], [address] [place], [address], [place] tel: [phone] LIANET Glover Macular cyst, hole (chief complaint)de nies vision changes (chief complaint)BP 142/77 (chief complaint) Macular cyst, hole, or pseudohole of retinaMacular puckering of retinaDrusen (degenerative) of retinaSenile nuclear sclerosisLens replaced by other means Jan-2 5 Orgel Vanessa. [address], [address], [place], [place], [id number] , [place]. tel:[phone] Referring Provider: Vanessa Kirkland, [address], [place], [address]. [phone] [facility], [address] [place], [address], [place] tel:[phone] LIANET Glover referred by Dr. Tobin for a mac hole (chief complaint)di stortion in vision (chief complaint)Bl ood pressure reading (chief complaint) Macular cyst, hole, or pseudohole of retinaMacular puckering of retinaDrusen (degenerative) of retinaSenile nuclear sclerosisLens replaced by other means Oct-2 0 5 Orgel Vanessa. [address], [address] , [place], [place], [id number] , [place]. tel:[phone] Referring Provider: Vanessa Kirkland, [address], [place], [address]. [phone] [facility], [address] [place], [address], [place] tel:[phone] RVA [place] macular hole (chief complaint)bl urry vision (chief complaint) Macular cyst, hole, or pseudohole of retinaSenile nuclear sclerosisBenign neoplasm of choroidHypertensio n, Unspecified Oct-2 4 Polo Kumari. [address], [address] , [place], [address], [place]. tel:[phone] Referring Provider: Quoc Santos, [address] , [place], [address]. tel:[phone] [facility], [address] [place], [address], [place] tel: [phone] [facility] [place] macular hole (chief complaint)in creased vision (chief complaint) Macular cyst, hole, or pseudohole of retinaSenile nuclear sclerosisBenign neoplasm of choroidHypertensio n, Unspecified 4 Polo Kumari. [address], [place], [address], [place]. tel: [phone] Specialist: Kina Tobin, [address] [place], [address]. tel:[phone] ring Provider: Kina Tobin L, [address] [facility] [address], [address]. tel:[phone] [facility], [address] [place], [address], [place] tel: [phone] RVA [place] Macular cyst, hole, or pseudohole of retinaBenign neoplasm of choroidHypertensio n, UnspecifiedSenile nuclear sclerosis 4 Polo Kumari. [address], [address], [place], [address], [place]. tel: [phone] Specialist: Kina Tobin, [address] [place], [address]. tel:[phone] ring Provider: Quoc Santos, [address], [place], [address]. tel:[phone] [facility], [address] [place], [address], [place] tel:[phone] [facility] [place] Macular cyst, hole, or pseudohole of retinaScotoma involving central areaSenile nuclear sclerosisBenign neoplasm of choroidHypertensio n, Unspecified 4 Polo Kumari. [address], [address], [place], [address], [place]. tel:[phone] Referring Provider: Quoc Santos, [address], [place], [address]. [phone] [facility], [address], [place], [address], [place] tel: [phone] [facility] [place] Hypertension, UnspecifiedBenign neoplasm of choroidScotoma involving central areaMacular cyst, hole, or pseudohole of retinaSenile nuclear sclerosis 4 Polo Kumari. [address], [address], [place], [address], [place]. tel: [phone] Office Consultation , High [facility], [address], [place], [address], [place] tel: [phone] R[facility] [place] Hypertension, UnspecifiedSenile nuclear sclerosisMacular cyst, hole, or pseudohole of retinaScotoma involving central areaBenign neoplasm of choroid 3 Polo Kumari. [address], [address], [place], [address], [place]. tel:[phone] Referring Provider: Kina Mendoza, [address] [facility] [address], [place], [address]. [phone] Family History Family Member Type Diagnosis Age At Onset Problem (finding) Family history of HBP Problem (finding) Family history of malignant neoplasm of bone Problem (finding) Family history of hyper tension Payers Payer name Insurance type Covered republican ID Authoriza tion(s) No Information Social History Type Description Quantity Date Captured Comments Alcohol Use Details No Caffeine Use Details No Tobacco Use Status Current non-smoker Smoking Status Never smoker Non-Smoking Tobacco Use Details : No Details Available : No Details Available Sex Female Vital Signs Date / Time: Height Weight BMI Pulse Rate Blood Pressure Temperature Respiratory Rate Body Surface Area Head Circumference Head Circ. Percentile Wt./Patricio. Percentile BMI percentile Pulse Ox Inhaled Ox 1:50 PM 133/70 mm[Hg] Chief Complaint And Reason For Visit From encounter dated '02/04/2021 13:50'. ERM (chief complaint). Description: The 70 year old female presents for evaluation of ERM in the right eye. stable vision (chief complaint). Description: The patient reports stable vision in the right and left eyes. It started about 1 year(s) ago. It occurs constantly. It affects both near and distance vision. Reason For Referral Reason For Referral No Information Plan Of Treatment Date Type Action Status Patient Education Health Information for You: MedlinePl~ completed History Of Present Illness Encounter Date Complaint History Of Prese nt Illness ERM The 70 year old female presents for evaluation of ERM in the right eye. stable vision The patient repo rts stable vision in the right and left eyes. It started about 1 year(s) ago. It occurs constantly. It affects both near and distance vision. Puckering of macula The 69 year old female presents for puckering of macula in both eyes. stable vision The patient repo rts stable vision in both eyes since last visit about 6 month(s) ago. It occurs constantly. It affects both near and distance vision. In addition, the condition is associated with daily activities and chores. Patient reports intermittent floaters not affecting the vision. Patient denies flashes. no vision changes The patient re ports no vision changes in either eye since last visit about 6 month(s) ago. It affects both near and distance vision. The symptom is all of the time. The condition is unchanged. In addition, the condition is associated with daily activities and chores. macular pucker The 68 year old female presents for evaluation of macular pucker in both eyes. stable vision The patient repo rts stable vision in both eyes since her last visit approx 7 months ago. She reports she has no issues with reading, daytime driving or watching TV; she does not drive at night. Denies any flashes, will have an occasional floater but she blinks and it goes away. macular hole The 68 year old female presents for evaluation of macular hole in the right eye. stable vision The patient repo rts stable vision in both eyes since her last visit 4 months ago. It occurs all the time. It affects distance vision. The symptom is constant. In addition, the condition is associated with daily activity and chores. Patient denies flashes and floaters. macular pucker The 67 year old female presents for evaluation of macular pucker in both eyes. reports no visual changes The pa negra reports no visual changes in the right eye since her last visit 4 months ago. It affects both near and far vision. The symptom is constant. The condition is stable. In addition, the condition is associated with daily activity and chores. The patient denies flashes and floaters. floater The patient repo rts a floater in the left eye for years. The onset was sudden. Vision is not affected. The symptom is intermittent. The condition is mild. In addition,the condition is associated with daily activity and chores. The patient denies flashes. macular pucker The 67 year old female presents for evaluation of macular pucker in the right eye and left eye. reports no visual changes The pa negra reports no visual changes in the left eye since her last visit 4 months ago. It affects both near and far vision. The symptom is constant. The condition is stable. In addition, the condition is associated with daily activity and chores. The patient denies flashes and floaters. blurry vision The patient repo rts blurry vision in the right eye. It started about 5 years ago . The onset was gradual. It affects distance vision. The symptom is constant. The condition is moderate. In addition, the condition is associated with daily activity and chores. The patient denies floaters, flashes. macular pucker The 67 year old female presents for evaluation of macular pucker in the right eye and left eye. blurry vision The patient repo rts blurry vision in the right eye. It started about 1 year ago. The onset was gradual. It affects distance vision. The symptom is constant. The condition is severe and stable. In addition, the condition is associated with daily activity and chores. The patient denies flashes and floaters. floater The patient repo rts a floater in the left eye. It started about 1 year ago . The onset was gradual. Vision is not affected. The symptom is infrequent. The condition is mild. In addition, the condition is associated with daily activity and chores. The patient denies flashes. macular pucker The 66 year old female presents for evaluation of macular pucker in the right eye and left eye. reports no visual changes The pa negra reports no visual changes in the right eye since her last visit 4 months ago. It affects both near and far vision. The symptom is constant. The condition is stable. In addition, the condition is associated with daily activity and chores. The patient denies flashes and floaters. improvement in floaters The matheus ent reports improvement in floaters in the left eye. It started about 4 months ago . The onset was gradual. Vision is not affected. The symptom is intermittent. The condition is improving. In addition, the condition is associated with daily activity and chores. The patient denies flashes. macular pucker The 66 year old female presents for evaluation of macular pucker in the right eye and left eye. Additional Information Patient's blood pressure is 124/78. no change in vision Patient kashif es any significant changes in vision of either eye since the last exam. macular hole The 66 year old female presents for evaluation of macular hole in the right > left. Additional Information Patients blood pressure today was 115/88. improving vision The patient rep orts improving vision in the left eye, since her YAG laser with Dr. Inman. Vision in her right eye has stayed stable since her last exam. The patient denies flashes, floaters. macular hole The 65 year old female presents for evaluation of macular hole in both eyes. no noticeable change in vision T he patient reports no noticeable change in vision in the right eye and left eye. It started about 8 weeks ago. It affects both near and far vision. The symptom is constant. It occurs all the time. In addition, the condition is associated with daily activity and chores. The patient denies decreased vision. Additional Information BP 127/77 macular hole OU The 65 year old female presents for evaluation of macular hole OU stable vision Patient states t he vision has been stable in the left eye since her last visit 3 months ago that is constant in all activities. Patient denies flashes and floaters. things are brighter The patient reports things are brighter in the right eye since her cataract surgery about a month. The onset was gradual. It affects near vision. The symptom is constant. The condition is improving. In addition, the condition is associated with daily activity and chores. The patient denies flashes and floaters. mac hole The 65 year old female presents for an evaluation of mac hole in both eyes. history of macular hole The matheus ent reports history of macular hole in the left eye sp Vitrectomy 2013. decrease vision The patient comp lains of decrease vision in the right eye 4 months ago . The onset was gradual. It affects both near and far vision. The symptom is constant. It occurs all the time. The condition is significant. macular pucker / hole The 65 yea r old female presents for evaluation of macular pucker / hole in the right eye. Blood pressure reading Blood pre ssure reading was 138/77. decrease in vision The patient c omplains of a decrease in vision in the right eye. It started about 1 month ago . The onset was gradual. It affects both near and far vision. The symptom is constant. The condition is mild. In addition, the condition is associated with daily activity and chores. The patient denies floaters and flashes. BP 142/77 The patient BP 1 42/77 denies vision changes The patien t denies vision changes in the right eye and left eye. It started about 3 months ago . It affects both near and far vision. The symptom is constant. It occurs when focusing. The condition is stable. Macular cyst, hole The 64 year o ld female presents for evaluation of Macular cyst, hole in the right eye and left eye. Blood pressure reading Blood pre ssure reading was 143/79. distortion in vision The patient complains of a distortion in vision in the right eye. It started about 1 week ago . The onset was gradual. It affects distance vision. The symptom is constant. The condition is mild. In addition, the condition is associated with all activity. Patient states she did have surgery on the left eye for a mac hole in July 07, 2013 and had noticed a distortion prior for about 3 months. She did state she still has a distortion in the left eye even though it is healed. referred by Dr. Alejo bess for a mac hole The 64 Yyear old female referred by Dr. Tobin for a possible mac hole in the right eye. blurry vision The patient comp lains of blurry vision in the left eye. It started about 6 months ago. The onset was gradual. It affects both near and far vision. The symptom is constant. macular hole The 63 year old female presents for evaluation of s/p macular hole in the left eye. increased vision The patient sta farnk increased vision in the left eye. It started about 2 week(s) ago . The onset was gradual. It affects distance vision. She states that her vision in her right eye seems to have gotten worse, or that her vision in her left eye is now much better in her left eye. She is unsure. macular hole The 63 years old female presents for evaluation of macular hole in the left eye- s/p PPV. 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, right eye Impression/Plan 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 Impression/Plan Related to Prese nce of intraocular lens Impression/Plan Related to Macul ar cyst, hole, or pseudohole, left eye Impression/Plan Related to Prese nce of intraocular lens Impression/Plan 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 Impression/Plan Related to Macul ar cyst, hole, or pseudohole, bilateral Impression/Plan Related to Pucke ring of macula, bilateral Impression/Plan Related to Prese nce of intraocular lens Impression/Plan 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 Surgical intervention was rediscussed with the patient and is not indicated at this time. Will continue to monitor for progression. The patient was advised to call with vision changes. Related to Macular cyst, hole, or pseudohole, bilateral Impression/Plan - Ma cular Pucker was again noted on examination today and explained to the patient. Surgical intervention was rediscussed and patient is still not interested at this point. Recommended that we follow closely and only consider surgery if vision worsens or would interfere with the patient's activities. The patient was advised to call with vision changes. Related to Puckering of macula, bilateral Follow up - Return i n [address] Gage for follow up exam and OCT. Impression/Plan - We ll positioned intraocular lens implants were noted on examination today. I advised the patient of the importance of regular follow up appointments with the patients referring physician for all comprehensive needs. Related to Presence of intraocular lens Impression/Plan - Re stanley flat and unchanged. Discussed importance of periodic monitoring and reassessment to identify any potential signs of malignant transformation. 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 Gage for follow up exam and OCT. Impression/Plan - We ll positioned intraocular lens implants were noted on examination today. I advised the patient of the importance of regular follow up appointments with the patients referring physician for all comprehensive needs. Related to Presence of intraocular lens Impression/Plan - A lamellar was again noted on examination today and explained to the patient. Surgical intervention was rediscussed with the patient and is not indicated at this time. Will continue to monitor for progression. The patient was advised to call with vision changes. Related to Macular cyst, hole, or pseudohole, bilateral Impression/Plan - Ma cular Pucker was again noted on examination today and explained to the patient. Surgical intervention was rediscussed and patient is not interested at this point. Recommended that we follow closely and only consider surgery if vision worsens or would interfere with the patient's activities. The patient was advised to call with vision changes. Related to Puckering of macula, bilateral Impression/Plan - Re stanley flat and unchanged. Discussed importance of periodic monitoring and reassessment to identify any potential signs of malignant transformation. 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 I advised the patient of the importance of regular follow up appointments with the patients referring physician for all comprehensive needs. Related to Presence of intraocular lens Impression/Plan - We will continue to monitor. 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 Surgical intervention was rediscussed with the patient and is not indicated at this time. Will continue to monitor for progression. The patient was advised to call with vision changes. Related to Macular cyst, hole, or pseudohole, bilateral Follow up - Return i n [address] Gage for follow up exam and OCT. Impression/Plan - Ma cular Pucker was again noted on examination today and explained to the patient. Surgical intervention was rediscussed and patient is not interested at this point. Recommended that we follow closely and only consider surgery if vision worsens or would interfere with the patient's activities. The patient was advised to call with vision changes. Related to Puckering of macula, bilateral Follow up - Return i n [address] Gage for follow up exam and OCT. Impression/Plan - We will continue to monitor. 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 Surgical intervention was rediscussed with the patient and is not indicated at this time. Will continue to monitor for progression. The patient was advised to call with vision changes. Related to Macular cyst, hole, or pseudohole, bilateral Impression/Plan - Ma cular Pucker was again noted on examination today and explained to the patient. Surgical intervention was rediscussed and patient is not interested at this point. Recommended that we follow closely and only consider surgery if vision worsens or would interfere with the patient's activities. The patient was advised to call with vision changes. Related to Puckering of macula, bilateral Impression/Plan - Di scussed importance of periodic monitoring and reassessment to identify any potential signs of malignant transformation. 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 I advised the patient of the importance of regular follow up appointments with the patients referring physician for all comprehensive needs. Related to Presence of intraocular lens Impression/Plan - A lamellar was again noted on examination today and explained to the patient. Surgical intervention was rediscussed with the patient and is not indicated at this time. Will continue to monitor for progression. The patient was advised to call with vision changes. Related to Macular cyst, hole, or pseudohole, bilateral Impression/Plan - We will continue to monitor. 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 Gage for follow up exam and OCT. Impression/Plan - Di scussed importance of periodic monitoring and reassessment to identify any potential signs of malignant transformation. 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 I advised the patient of the importance of regular follow up appointments with the patients referring physician for all comprehensive needs. Related to Presence of intraocular lens Impression/Plan - Ma cular Pucker was again noted on examination today and explained to the patient. Surgical intervention is not indicated at this time. Recommended that we follow closely and only consider surgery if vision worsens or would interfere with the patient's activities. The patient was advised to call with vision changes. Related to Puckering of macula, bilateral Follow up - Return i n 3-[address] Gage for follow up exam and OCT. Impression/Plan - Di scussed importance of periodic monitoring and reassessment to identify any potential signs of malignant transformation. 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 I advised the patient of the importance of regular follow up appointments with the patients referring physician for all comprehensive needs. Related to Presence of intraocular lens Impression/Plan - We will continue to monitor. 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 Surgical intervention is not indicated at this time. Will continue to monitor for progression. The patient was advised to call with vision changes. Related to Macular cyst, hole, or pseudohole, bilateral Impression/Plan - Ma cular Pucker was again noted on examination today and explained to the patient. Surgical intervention is not indicated at this time. Recommended that we follow closely and only consider surgery if vision worsens or would interfere with the patient's activities. The patient was advised to call with vision changes. Related to Puckering of macula, bilateral Follow up - Return i n 3-[address] Gage for follow up exam and OCT. Impression/Plan - We ll positioned intraocular lens implants were again noted on examination today. I advised the patient of the importance of regular follow up appointments with the patients referring physician for all comprehensive needs. Related to Presence of intraocular lens Impression/Plan - We will continue to monitor. 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 Surgical intervention is not indicated at this time. Recommended that we follow closely and only consider surgery if vision worsens or would interfere with the patient's activities. The patient was advised to call with vision changes. Related to Puckering of macula, bilateral Impression/Plan - A pseudohole was again noted on examination today and explained to the patient. Surgical intervention is not indicated at this time. Will continue to monitor for progression. The patient was advised to call with vision changes. Related to Macular cyst, hole, or pseudohole, bilateral - Macular Pucker was noted on examination today and explained to the patient. Surgical intervention is not indicated at this time. Recommended that the patient return to get an update on her glasses. If glasses will help I will not consider surgery. If glasses do not help, then I will discuss surgery with the patient. Will continue to monitor for progression. The patient was advised to call with vision changes. Related to Puckering of macula, bilateral - Macular hole was n oted on examination today and explained to the patient. Surgical intervention is not indicated at this time. Will continue to monitor for progression. The patient was advised to call with vision changes. Related to Macular cyst, hole, or pseudohole, bilateral - Well positioned in traocular lens implants were noted on examination today. I advised the patient of the importance of regular follow up appointments with the patients referring physician for all comprehensive needs. Related to Presence of intraocular lens - We will continue to monitor. R elated to Drusen (degenerative) of macula, bilateral - Return in 6-[address] Gage for follow up exam with OCT. Return to see her primary eye care doctor in 1-2 months for a glasses recheck. Related to Macular cyst, hole, or pseudohole, bilateral - Return in 6-[address] Gage for follow up exam with OCT/FA. Related to Macular cyst, hole, or pseudohole, bilateral - Referral for surgi rodrigo intervention may be needed at this time. I recommended patient go see her primary eye care doctor for a recheck on her cataracts within the next couple of weeks and possibly be re-referred to Dr. Bartlett for cataract removal. If vision does not improve after the removal of the cataracts, we will consider vitrectomy surgery for the ERM. Related to Age-related nuclear cataract, right eye - We will continue to monitor. R elated to Drusen (degenerative) of macula, bilateral - Macular Pucker was noted on examination today and explained to the patient. Surgical intervention is not indicated at this time. Will continue to monitor for progression. The patient was advised to call with vision changes. Related to Puckering of macula, bilateral - Macular hole was n oted on examination today and explained to the patient. Surgical intervention is not indicated at this time. Will continue to monitor for progression. The patient was advised to call with vision changes. Related to Macular cyst, hole, or pseudohole, bilateral - Well positioned in traocular lens implants were noted on examination today. I advised the patient of the importance of regular follow up appointments with the patients referring physician for all comprehensive needs. Related to Presence of intraocular lens - Well positioned in traocular lens implants were noted on examination today. I advised the patient of the importance of regular follow up appointments with the patients referring physician for all comprehensive needs. Related to Presence of intraocular lens - Regular follow up appointments with the patient's comprehensive eye doctor was again recommended, to monitor the patients cataract for progression. Referral for surgical intervention is not indicated at this time. I recommended patient go see her primary eye care doctor for a recheck on her contacts. Related to Age-related nuclear cataract, right eye - We will continue to monitor. R elated to Drusen (degenerative) of macula, bilateral - Macular Pucker was noted on examination today and explained to the patient. Surgical intervention is not indicated at this time. Will continue to monitor for progression. The patient was advised to call with vision changes. Related to Puckering of macula, bilateral - Macular pseudo hol e was noted on examination today and explained to the patient. Surgical intervention is not indicated at this time. Will continue to monitor for progression. The patient was advised to call with vision changes. Related to Macular cyst, hole, or pseudohole, bilateral - Return in [address] Gage for follow up and OCT Related to Macular cyst, hole, or pseudohole, bilateral - Well positioned in traocular lens implants were noted on examination today. I advised the patient of the importance of regular follow up appointments with the patients referring physician for all comprehensive needs. Related to Lens replaced by other means - Regular follow up appointments with the patient's comprehensive eye doctor was again recommended, to monitor the patients cataract for progression. Referral for surgical intervention is not indicated at this time. Related to Senile nuclear sclerosis - We will continue to monitor. R elated to Drusen (degenerative) of retina - Macular Pucker was noted on examination today and explained to the patient. Surgical intervention is not indicated at this time. Will continue to monitor for progression. The patient was advised to call with vision changes. Related to Macular puckering of retina - Macular pseudo hol e was noted on examination today and explained to the patient. Surgical intervention is not indicated at this time. Will continue to monitor for progression. The patient was advised to call with vision changes. Related to Macular cyst, hole, or pseudohole of retina - Return in 4-[address] Gage for follow up exam with OCT. Related to Macular cyst, hole, or pseudohole of retina - Well positioned in traocular lens implants were noted on examination today. I advised the patient of the importance of regular follow up appointments with the patients referring physician for all comprehensive needs. Related to Lens replaced by other means - Regular follow up appointments with the patient's comprehensive eye doctor was again recommended, to monitor the patients cataract for progression. Referral for surgical intervention is not indicated at this time. Related to Senile nuclear sclerosis - We will continue to monitor. R elated to Drusen (degenerative) of retina - Macular Pucker was noted on examination today and explained to the patient. Surgical intervention is not indicated at this time. Will continue to monitor for progression. The patient was advised to call with vision changes. Related to Macular puckering of retina - Macular pseudo hol e was noted on examination today and explained to the patient. Surgical intervention is not indicated at this time. Will continue to monitor for progression. The patient was advised to call with vision changes. Related to Macular cyst, hole, or pseudohole of retina - Return in 3-[address] Gage for follow up exam with OCT. Related to Macular cyst, hole, or pseudohole of retina - LEFT EYE: s/p PPV on 07/07/13. The patient continues to do well following surgery. Related to Macular cyst, hole, or pseudohole of retina - Follow up with Dr. Tobin regarding cataract surgery referral and return to [facility] as needed. Related to Macular cyst, hole, or pseudohole of retina - Emphasized the imp ortance of careful ongoing medical care of hypertension Related to Hypertension, Unspecified - Discussed importan ce of continued periodic monitoring and reassessment to identify any potential signs of malignant transformation. Related to Benign neoplasm of choroid - The findings and p athogenesis of cataract were discussed. There is no retinal contraindication to proceeding with cataract surgery. The patient understands that macular function may limit the best corrected postoperative visual acuity. Related to Senile nuclear sclerosis - The findings of ca taract and the expectation of cataract progression following vitreoretinal surgery was reviewed. Cataract surgery will be needed following vitreoretinal surgery of the left eye, probably within 3-12 months. Related to Senile nuclear sclerosis - LEFT EYE: s/p PPV on 07/07/13. The patient continues to do well following surgery. Discussed following up with Dr. Tobin for an updated glasses/contact prescription. Related to Macular cyst, hole, or pseudohole of retina - Return in [address] Cuellar for follow up exam , OCT Related to Macular cyst, hole, or pseudohole of retina - Emphasized the imp ortance of careful ongoing medical care of hypertension Related to Hypertension, Unspecified - Discussed importan ce of continued periodic monitoring and reassessment to identify any potential signs of malignant transformation. Related to Benign neoplasm of choroid Hypertension, Unspec ified Condition: established, stable. - I reaffirmed the importance of careful ongoing medical care of hypertension. 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 - Discussed importance of periodic monitoring and reassessment to identify any potential signs of malignant transformation. 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 - The findings of cataract and the expectation of cataract progression following vitreoretinal surgery was reviewed. Cataract surgery will be needed following vitreoretinal surgery of the left eye, probably within 3-12 months. Related to Senile nuclear sclerosis Macular cyst, hole, or pseudohole of retina OS Condition: resolved s/p Vitrectomy. - LEFT EYE: The patient is doing well following surgery. Instructions regarding medication use (Taper Pred, continue Brim. BID until gone, and D/C Atropine) positioning, and activity limitations were discussed. The patient should avoid air travel (or any change in altitude) until any intravitreal gas bubble resorbs completely. Call MALIK if any problems or questions. Related to Macular cyst, hole, or pseudohole of retina - Return in [address] Cuellar for follow up exam. 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 - Discussed importance of periodic monitoring and reassessment to identify any potential signs of malignant transformation. 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 - The findings of cataract and the expectation of cataract progression following vitreoretinal surgery was reviewed. Cataract surgery will be needed following vitreoretinal surgery of the left eye, probably within 3-12 months. 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 - LEFT EYE: The patient is doing well following surgery. Instructions regarding medication use (Taper Pred, continue Brim. BID until gone, and D/C Atropine) positioning, and activity limitations were discussed. The patient should avoid air travel (or any change in altitude) until any intravitreal gas bubble resorbs completely. Call MALIK if any problems or questions. Related to Macular cyst, hole, or pseudohole of retina - Return in [address] Cuellar for follow up exam. Related to Macular cyst, hole, or pseudohole of retina Hypertension, Unspec ified Condition: established, stable. - I reaffirmed the importance of careful ongoing medical care of hypertension. Related to Hypertension, Unspecified - Return in 1-[address] Cuellar for follow up exam. Related to Macular cyst, hole, or pseudohole of retina Hypertension, Unspec ified Condition: established, stable. - I reaffirmed the importance of careful ongoing medical care of hypertension. Related to Hypertension, Unspecified Benign neoplasm of c horoid OS Condition: new. - Discussed importance of periodic monitoring and reassessment to identify any potential signs of malignant transformation. Baseline finding photos were obtained to facilitate future comparison. 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 - The findings of cataract and the expectation of cataract progression following vitreoretinal surgery was reviewed. Cataract surgery will be needed following vitreoretinal surgery of the left eye, probably within 3-12 months. 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 - LEFT EYE: Post-Op Day 1: The patient is doing well following surgery. Instructions regarding medication use, positioning, and activity limitations were discussed. The patient should avoid air travel (or any change in altitude) until any intravitreal gas bubble resorbs completely. Call MALIK if any problems or questions. Related to Macular cyst, hole, or pseudohole of retina - Schedule PPV at [facility] on July 07 for the LEFT EYE. Related to Macular cyst, hole, or pseudohole of retina Hypertension, Unspec ified Condition: established, stable. - I reaffirmed the importance of careful ongoing medical care of hypertension. Related to Hypertension, Unspecified Benign neoplasm of c horoid OS Condition: new. - Discussed importance of periodic monitoring and reassessment to identify any potential signs of malignant transformation. Baseline finding photos were obtained to facilitate future comparison. 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 - The findings of cataract and the expectation of cataract progression following vitreoretinal surgery was reviewed. Cataract surgery will be needed following vitreoretinal surgery of the left eye, probably within 3-12 months. 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 - Secondary to macular hole. 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 - LEFT EYE: I discussed the findings and pathogenesis of macular hole with the patient. I reviewed treatment options which include no treatment (observation only) with expectations of permanent central vision loss, use of intravitreal ocriplasmin, or vitrectomy surgery in an effort to achieve macular hole closure and stabilize or perhaps improve central vision. Surgical risks were reviewed. Informational literature on macular holes and vitreous surgery was provided and all of the patient's questions were answered. Vitreous surgery is performed on an outpatient basis with a local, monitored anesthesia. At the patient's request we will schedule vitrectomy at [facility] on July 07, 2013 for the LEFT EYE. Educational materials provided:Vitrectomy. Related to Macular cyst, hole, or pseudohole of retina Assessments Type Assessment Date assessment Puckering of macula, right eye A impression Puckering of macula, right eye: H35.371. OD Condition: moderate, chronic, stable assessment Macular cyst, hole, or pseudohol e, bilateral impression Macular cyst, hole, or pseudohole, bilateral: H35.343. OU Condition: chronic pseudohole OD, resolved FTMH OS s/p Vitrectomy assessment Presence of intraocular lens Feb impression Diagnosis: Presence of intraocular lens. Code: Z96.1. Side: OU. 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 OS. Condition: established, stable assessment Essential (primary) hypertension impression Essential (primary) hypertension : I10 Patient Care Teams Name Effective Dates (start - stop) Status Members No Information
[2025-01-03 20:43] VITALS: PULSE 89; TEMP 36.7; O2SAT 94; BMI 25.4
--- OUTSIDE RECORDS SUMMARY | 2025-01-03 20:54 | XMS_ITS | Clinical Summary ---
Author Organization Darren Hennessy [facility] Address [address] [place] [address] Care Team Providers Care Emergency Department Director Name Role Phone Ron Peterson MD Primary Care Provider [phone] Allergies Active Allergy Reactions Criticality Noted Date Comments Sulfa Antibiotics Other (See Comments) Medium 07/06/19 14 CYANOSIS Medications lisinopril-hydr ochlorothiazide (PRINZIDE;ZESTO RETIC) 20-25 MG per tablet Take 0.5 tablets by mouth daily. Active metoprolol (LOPRESSOR) 25 MG tablet Take 25 mg by mouth 2 times daily. Active simvastatin (ZOCOR) 10 MG tablet Take 10 mg by mouth nightly. Active Cholecalciferol (VITAMIN D) 2000 UNITS CAPS capsule Take 1 capsule by mouth daily. Active Calcium Carb-Cholecalci ferol (CALCIUM + D3 PO) Take 600 mg by mouth 2 times daily. Active brimonidine (ALPHAGAN) 0.2 % ophthalmic solution One drop to operative eye twice daily. 1 Bottle 0 4 Active atropine 1 % ophthalmic solution One drop to operative eye daily 1 Bottle 0 4 Active tobramycin-dexa methasone (TOBRADEX) ophthalmic ointment apply to operative eye three times daily as needed for comfort 1 Tube 0 4 Active gentamicin-pred nisoLONE (PRED-G) 0.3-1 % ophthalmic drops Apply one drop to operative eye 4 times daily 1 Bottle 0 4 Active Active Problems Problem Noted Date Diagnosed Date Macular cyst, hole, or pseudohole of retina 09/2013 Social History Tobacco Use Types Packs/Day Years Used Date Smoking Tobacco: Never Alcohol Use Standard Drinks/Week Comments No 0 (1 standard drink = 0.6 oz pur e alcohol) Comments No Sex and Gender Information Value Date Recorded Sex Assigned at Not on file Legal Sex Female 11:57 AM EST Gender Identity Not on file Sexual Orientation Not on file Last Filed Vital Signs Vital Sign Reading Time Taken Comments Blood Pressure 119/64 07/07/2013 12:00 PM EST Pulse 72 07/07/2013 12:00 PM EST Temperature 36.2 C (97.2 F) 07/07/2013 11:45 AM EST Respiratory Rate 16 07/07/2013 12:00 PM EST Oxygen Saturation 99% 07/07/2013 12:00 PM EST Inhaled Oxygen Concentration - - Weight 59 kg (130 lb) 07/06/2013 2:41 PM EST Height 154.9 cm (5' 1 ) 07/06/2013 2:41 PM EST Body Mass Index 24.56 07/06/2013 2:41 PM EST Plan of Treatment Not on file Care Teams Emergency Department Director Relationship Specialty Start Date End Date Ron Peterson MD [address] [place] [address] PCP - General 07/06/13
--- OUTSIDE RECORDS SUMMARY | 2025-01-03 20:54 | XMS_ITS | Encounter Summary ---
Author Organization [facility] Address [address] [facility] [place] [address] Care Team Providers Care Termite Control Service Representative Name Role Phone Ron Peterson MD Primary Care Provider [phone] Ryan Ruiz MD Unavailable [phone] Encounter Details Date Type Department Care Team (Late Contact Info) Description 12/31/2022 Abstract [facility] 112 [facility] [address] [place] [phone] Quoc Bartlett, DPEloina [address] [facility] 5 [place] [address] Social History Tobacco Use Types Packs/Day Years Used Date Smoking Tobacco: Never Passive Smoke Exposure: Never Smokeless Tobacco: Never Tobacco Cessation:Counseling Given: Not Answered Alcohol Use Standard Drinks/Week Comments Never 0 (1 standard drink = 0.6 oz pur e alcohol) Comments Unknown Sex and Gender Information Value Date Recorded Sex Assigned at Female 12/25/2023 11:22 AM EDT Legal Sex Female 11:18 PM EDT Gender Identity Female 12/25/2023 11:22 AM EDT Sexual Orientation Not on file documented as of this encounter Plan of Treatment Upcoming Encounters Date Type Department Care Team (Late st Contact Info) Description 06/07/2025 9:00 AM EST Office Visit [facility] [address] [facility] [place] [address] Laura Jones PA [address] [facility] [address] [place], [place] [address] documented as of this encounter Visit Diagnoses Not on filedocumented in this encounter Care Teams Termite Control Service Representative Relationship Specialty Start Date End Date Ron Peterson MD PCP - General Family Medicine 12/31/22 Ryan Ruiz MD 112 [facility] [address] [place] [address] PCP - [employer] 05/05/24 documented as of this encounter
--- OUTSIDE RECORDS SUMMARY | 2025-01-03 20:54 | XMS_ITS | Encounter Summary ---
Author Organization [facility] Address [address] [facility] [place] [address] Care Team Providers Care Supervisor Pile Driving Name Role Phone Ron Peterson MD Primary Care Provider [phone] Tita Ruiz MD Unavailable [phone] Encounter Details Date Type Department Care Team (Late Contact Info) Description 11/24/2023 Clinisync Result Encounter [facility] External Department Unsolicited Provider, Generic External Data Social History Tobacco Use Types Packs/Day Years Used Date Smoking Tobacco: Never Passive Smoke Exposure: Never Smokeless Tobacco: Never Alcohol Use Standard Drinks/Week Comments Never 0 [...] EST Office Visit [facility] [address] [facility] [place] [address] Laura Jones PA [address] [facility] [address] [place], [place] [address] documented as of this encounter Procedures Procedure Name Priority Date/Time Associated Diagnosis Comments NM ANGELI PERF SPECT REST STR 11/24/2023 3:31 PM EDT documented in this encounter Results * NM ANGELI PERF SPECT REST STR (11/24/2023 3:31 PM EDT) Anatomical Region Laterality Modality Other 11/24/2023 3:31 PM EDT Narrative 11/24/2023 3:32 PM EDT [address] [address] Nuclear Medicine Report Signed Patient: MADAN COONEY MR#: [id number] : 1950 Acct:[id number] Age/Sex: 73 / F ADM Date: 11/23/23 Loc: [place] Attending Dr: PRETTY ALEMAN APRN Ordering Physician: PRETTY ALEMAN APRN Date of Service: 11/23/23 Procedure(s): NM angeli perf SPECT rest str Accession Number(s): [id number] cc: TITA RUIZ ; PRETTY ALEMAN APRN Patient Name: MADAN COONEY MR#: [id number] : 1950 Exam Date: 11/23/2023 Ordering Doctor: PRETTY ALEMAN CONSTRUCTION MANAGEMENT INSTRUCTOR RADIOLOGY REPORT PROCEDURE: NM ANGELI PERF SPECT REST STR COMPARISON: None. INDICATIONS: ATRIAL FIBRILLATION, ABNORMAL EKG TECHNIQUE: Exam Description: Stress/Rest one day protocol gated SPECT Rest Imagin.6 mCi Tc-99m Cardiolite IV on 11/23/2023 Stress Imaging 30.3 mCi Tc-99m Cardiolite IV on 11/23/2023 Exercise Protocol: Emmanuel Heart Rate (bpm): Rest: 66 Max: 150 PMHR: 100 Blood Pressure: Rest: 160/94 Max: 180/102 Exercise Time: Minutes: 7 Seconds: 24 Stage Reached: Stage: 3 Mets 10.1 Symptoms: Rest and peak stress ECG findings were pending and the exercise portion of the study was pending per attending physician Dr. PALACIOS . For more details please see separate cardiac stress test report. FINDINGS: QUALITY OF STUDY: Excellent. PERFUSION DEFECT: None. LOCATION: N/A SIZE: N/A. SEVERITY: N/A. TYPE: N/A. WALL MOTION: Normal. LV SIZE: Normal. 43 mL. TID / TCD: None; 0.6 LVEF: Normal. Calculated EF 89%. SUMMARY: Myocardial perfusion imaging study is NORMAL. CONCLUSION: 1. No reversible ischemia 2. Pending exercise test results Dictated by: Burton Zuñiga MD on 11/24/2023 at 15:30 Approved by: Burton Zuñiga MD on 11/24/2023 at 15:31 Dictated By: Burton Zuñiga M.D. Signed By: 11/24/23 1532 DD/ 1531 TD/TT: Transcription Typist: Procedure Note Radiology, Radiologist, MD - 11/24/2023 [place] [address] Nuclear Medicine Report Signed Patient: MADAN COONEY LMR#: [id number] : 1950cct:[id number] Age/Sex: 73 / FADM Date: 11/23/23 Loc: [place] Attending Dr: PRETTY ALEMAN APRN Ordering Physician: PRETTY ALEMAN APRN Date of Service: 11/23/23 Procedure(s): NM angeli perf SPECT rest str Accession Number(s): [id number] cc: TITA RUIZ ; PRETTY ALEMAN APRN Patient Name: MADAN COONEY MR#: [id number] : 1950 Exam Date: 11/23/2023 Ordering Doctor: PRETTY ALEMAN CNP RADIOLOGY REPORT PROCEDURE: NM ANGELI PERF SPECT REST STR COMPARISON: None. INDICATIONS: ATRIAL FIBRILLATION, ABNORMAL EKG TECHNIQUE: Exam Description: Stress/Rest one day protocol gated SPECT Rest Imagin.6 mCi Tc-99m Cardiolite IV on 11/23/2023 Stress Imaging 30.3 mCi Tc-99m Cardiolite IV on 11/23/2023 Exercise Protocol: Emmanuel Heart Rate (bpm): Rest: 66 Max: 150 PMHR: 100 Blood Pressure: Rest: 160/94 Max: 180/102 Exercise Time: Minutes: 7 Seconds: 24 Stage Reached: Stage: 3 Mets 10.1 Symptoms: Rest and peak stress ECG findings were pending and the exercise portion ofthe study was pending per attending physician Dr. PALACIOS . For more detailsplease see separate cardiac stress test report. FINDINGS: QUALITY OF STUDY: Excellent. PERFUSION DEFECT: None. LOCATION: N/A SIZE: N/A. SEVERITY: N/A. TYPE: N/A. WALL MOTION: Normal. LV SIZE: Normal. 43 mL. TID / TCD: None; 0.6 LVEF: Normal. Calculated EF 89%. SUMMARY: Myocardial perfusion imaging study is NORMAL. CONCLUSION: 1. No reversible ischemia 2. Pending exercise test results Dictated by: Burton Zuñiga MD on 11/24/2023 at 15:30 Approved by: Burton Zuñiga MD on 11/24/2023 at 15:31 Dictated By: Burton Zuñiga M.D. Signed By:11/24/23 1532 DD/ 1531 TD/TT: Transcription Typist: us Generic External Data Provider [facility] Final Result documented in this encounter Visit Diagnoses Not on filedocumented in this encounter Care Teams Supervisor Pile Driving Relationship Specialty Start Date End Date Ron Peterson MD PCP - General Family Medicine 12/31/22 Tita Ruiz MD [address] [place] [address] PCP - [employer] 05/05/24 documented as of this encounter
--- OUTSIDE RECORDS SUMMARY | 2025-01-03 20:54 | XMS_ITS | Encounter Summary ---
Author Organization [facility] Address [address] [facility] [place] [address] Care Team Providers Care Oil Heaterman Name Role Phone Ron Peterson MD Primary Care Provider [phone] Ryan Ruiz MD Unavailable [phone] Encounter Details Date Type Department Care Team ([facility] Contact Info) Description 12/09/2023 Abstract [facility] FM 112 [facility] [address] [place] [address] Ryan Ruiz MD 112 [facility] 110 [place] [address] Social History Tobacco Use Types Packs/Day Years [...] Encounters Date Type Department Care Team (Late Contact Info) Description 06/07/2025 9:00 AM EST Office Visit [facility] OB [address] [facility] [place] [address] Laura Jones PA [address] [facility] [place] [address] documented as of this encounter Visit Diagnoses Not on filedocumented in this encounter Care Teams Oil Heaterman Relationship Specialty Start Date End Date Ron Peterson MD PCP - General Family Medicine 12/31/22 Ryan Ruiz MD [address] [place] [address] PCP - [employer] 05/05/24 documented as of this encounter
--- OUTSIDE RECORDS SUMMARY | 2025-01-03 20:54 | XMS_ITS | Encounter Summary ---
Author Organization [facility] Address [address] [place] [address] Care Team Providers Care Catholic Priest Name Role Phone Ron Peterson MD Primary Care Provider [phone] Tita Ruiz MD Unavailable [phone] Encounter Details Date Type Department Care Team (Late st Contact Info) Description 04/10/2024 Clinisync Result Encounter [facility] External Department Unsolicited [...] EST Office Visit [facility] OB [address] [facility] [place] [address] Laura Jones PA [address] [facility] [place] [address] documented as of this encounter Procedures Procedure Name Priority Date/Time Associated Diagnosis Comments XR WRIST LT MIN 3 V 04/10/2024 1 :58 PM EDT documented in this encounter Results * XR WRIST LT MIN 3 V (04/10/2024 1:58 PM EDT) Anatomical Region Laterality Modality Radiographic Jacquelin ging 04/10/2024 1:58 PM EDT Narrative 04/10/2024 2:01 PM EDT [address] [address] XRay Report Signed Patient: MADAN COONEY MR#: [id number] : 1950 Acct:[id number] Age/Sex: 73 / F ADM Date: 04/10/24 Loc: EC Attending Dr: Tiffanie Villanueva M.D. Ordering Physician: Tiffanie Villanueva M.D. Date of Service: 04/10/24 Procedure(s): XR wrist LT min 3V Accession Number(s): [id number] cc: TITA RUIZ ; Tiffanie Villanueva M.D. The [address] [address] Patient Name: MADAN COONEY MRN: [facility]:[id number] date: 1950 Sex: F Assigned Patient Location: Current Patient Location: Accession/Order Number: [id number] Exam Date: 04/10/2024 07:35 Report Date: 04/10/2024 13:58 At the request of: TIFFANIE VILLANUEVA Procedure: XR wrist LT min 3V PROCEDURE: XR wrist LT min 3V COMPARISON: 04/03/2024 HISTORY: LEFT WRIST PAIN FINDINGS: BONES:Stable healing complex intra-articular distal radius fracture with interval increase in sclerosis. Moderate degenerative changes with joint space narrowing most significant along the medial carpus SOFT TISSUES:Negative. No visible soft tissue swelling. EFFUSION:None visible. OTHER: Bone details obscured by a fiberglass cast XR/XR wrist LT min 3V IMPRESSION: Stable healing complex intra-articular distal radius fracture Electronically authenticated by: RAFIQ HAMMOND Date: 04/10/2024 13:58 Dictated By: Rafiq Hammond M.D. Signed By: 04/10/24 1401 DD/ 1358 TD/TT: Assembler Engine: Procedure Note Radiology, Radiologist, MD - 04/10/[address] [address] XRay Report Signed Patient: MADAN COONEY LMR#: [id number] : 1950cct:[id number] Age/Sex: 73 / FADM Date: 04/10/24 Loc: EC Attending Dr: Tiffanie Villanueva M.D. Ordering Physician: Tiffanie Villanueva M.D. Date of Service: 04/10/24 Procedure(s): XR wrist LT min 3V Accession Number(s): [id number] cc: TITA RUIZ ; Tiffanie Villanueva M.D. The [address] [address] Patient Name: MADAN COONEY MRN: [facility]:[id number] date: 1950 Sex: F Assigned Patient Location: Current Patient Location: Accession/Order Number: [id number] Exam Date: 04/10/2024 07:35 Report Date: 04/10/2024 13:58 At the request of: TIFFANIE VILLANUEVA Procedure: XR wrist LT min 3V PROCEDURE: XR wrist LT min 3V COMPARISON: 04/03/2024 HISTORY: LEFT WRIST PAIN FINDINGS: BONES:Stable healing complex intra-articular distal radius fracture with interval increase in sclerosis. Moderate degenerative changes with jointspace narrowing most significant along the medial carpus SOFT TISSUES:Negative. No visible soft tissue swelling. EFFUSION:None visible. OTHER: Bone details obscured by a fiberglass cast XR/XR wrist LT min 3V IMPRESSION: Stable healing complex intra-articular distal radius fracture Electronically authenticated by: RAFIQ HAMMOND Date: 04/10/2024 13:58 Dictated By: Rafiq Hammond M.D. Signed By:04/10/24 1406 DD/ 1358 TD/TT: Assembler Engine: us Generic External Data Provider IMG XR PROCEDURES Final Result documented in this encounter Visit Diagnoses Not on filedocumented in this encounter Care Teams Catholic Priest Relationship Specialty Start Date End Date Ron Peterson MD PCP - General Family Medicine 12/31/22 Tita Ruiz MD [address] [place] [address] PCP - [employer] 05/05/24 documented as of this encounter
--- OUTSIDE RECORDS SUMMARY | 2025-01-03 20:54 | XMS_ITS | Encounter Summary ---
Author Organization [facility] Address [address] [facility] [place] [address] Care Team Providers Care Beauty Therapist Name Role Phone Ron Peterson MD Primary Care Provider [phone] Tita Ruiz MD Unavailable [phone] Encounter Details Date Type Department Care Team (Late st Contact Info) Description 04/04/2024 Clinisync Result Encounter [facility] External Department Unsolicited [...] [address] [facility] [place] [address] Laura Jones PA [address] [facility] [place] [address] documented as of this encounter Procedures Procedure Name Priority Date/Time Associated Diagnosis Comments XR WRIST LT MIN 3 V 04/04/2024 5 :44 AM EDT documented in this encounter Results * XR WRIST LT MIN 3 V (04/04/2024 5:44 AM EDT) Anatomical Region Laterality Modality Radiographic Jacquelin ging 04/04/2024 5:44 AM EDT Narrative 04/04/2024 5:46 AM EDT [address] [address] XRay Report Signed Patient: MADAN COONEY MR#: [id number] : 1950 Acct:[id number] Age/Sex: 73 / F ADM Date: 04/03/24 Loc: EC Attending Dr: Tiffanie Villanueva M.D. Ordering Physician: Tiffanie Villanueva M.D. Date of Service: 04/03/24 Procedure(s): XR wrist LT min 3V Accession Number(s): [id number] cc: TITA RUIZ ; Tiffanie Villanueva M.D. [address] [address] Patient Name: MADAN COONEY MRN: [facility]:[id number] date: 1950 Sex: F Assigned Patient Location: Current Patient Location: Accession/Order Number: [id number] Exam Date: 04/03/2024 09:54 Report Date: 04/04/2024 05:44 At the request of: TIFFANIE VILLANUEVA Procedure: XR wrist LT min 3V PROCEDURE: XR wrist LT min 3V HISTORY: LEFT WRIST PAIN COMPARISON: XR wrist left 03/24/2024 FINDINGS: BONES:Stable alignment of slightly complex and likely impacted fracture of the distal radial metaphysis with intra-articular extension. 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 SOFT TISSUES:Soft tissue swelling. EFFUSION:None visible. OTHER: Negative. XR/XR wrist LT min 3V IMPRESSION: 1. Images were obtained to cast material which slightly limits evaluation. 2. Stable alignment and slight impaction of distal radius fracture. Electronically authenticated by: TIFFANIE DONAHUE Date: 04/04/2024 05:44 Dictated By: Tiffanie Donahue M.D. Signed By: 04/04/2446 DD/ 3 TD/TT: Property Underwriter: Procedure Note Radiology, Radiologist, MD - 04/04/[address] [address] XRay Report Signed Patient: MADAN COONEY LMR#: [id number] : 1950cct:[id number] Age/Sex: 73 / FADM Date: 04/03/24 Loc: EC Attending Dr: Tiffanie Villanueva M.D. Ordering Physician: Tiffanie Villanueva M.D. Date of Service: 04/03/24 Procedure(s): XR wrist LT min 3V Accession Number(s): [id number] cc: TITA RUIZ ; Tiffanie Villanueva M.D. The [place] [id number] Patient Name: MADAN COONEY MRN: [facility]:[id number] date: 1950 Sex: F Assigned Patient Location: Current Patient Location: Accession/Order Number: [id number] Exam Date: 04/03/2024 09:54 Report Date: 04/04/2024 05:44 At the request of: TIFFANIE VILLANUEVA Procedure: XR wrist LT min 3V PROCEDURE: XR wrist LT min 3V HISTORY: LEFT WRIST PAIN COMPARISON: XR wrist left 03/24/2024 FINDINGS: BONES:Stable alignment of slightly complex and likely impacted fracture ofthe distal radial metaphysis with intra-articular extension. Stabledegenerative joint disease of the wrist. SOFT TISSUES:Soft tissue swelling. EFFUSION:None visible. OTHER: Negative. XR/XR wrist LT min 3V IMPRESSION: 1. Images were obtained to cast material which slightly limits evaluation. 2. Stable alignment and slight impaction of distal radius fracture. Electronically authenticated by: TIFFANIE DONAHUE Date: 04/04/2024 05:44 Dictated By: Tiffanie Donahue M.D. Signed By:04/04/2446 DD/ 3 TD/TT: Property Underwriter: us Generic External Data Provider IMG XR PROCEDURES Final Result documented in this encounter Visit Diagnoses Not on filedocumented in this encounter Care Teams Beauty Therapist Relationship Specialty Start Date End Date Ron Peterson MD PCP - General Family Medicine 12/31/22 Tita uRiz MD [address] [place] [address] PCP - [employer] 05/05/24 documented as of this encounter
--- OUTSIDE RECORDS SUMMARY | 2025-01-03 20:54 | XMS_ITS | Encounter Summary ---
Author Organization [facility] Address [address] [place] [address] Care Team Providers Care Research Quality Assurance Analyst Name Role Phone Ron Peterson MD Primary Care Provider [phone] Ryan Ruiz MD Unavailable [phone] Encounter Details Date Type Department Care Team ([facility] Contact Info) Description 12/09/2023 Abstract [facility] CI FM [address] [facility] 110 [place] [address] Ryan Ruiz MD 112 [facility] 110 [place] [address] Social History Tobacco Use Types Packs/Day Years [...] Office Visit [facility] BCP OB [address] [facility] [place] [address] Laura Jones PA [address] [facility] [place] [place] [address] documented as of this encounter Visit Diagnoses Not on filedocumented in this encounter Care Teams Research Quality Assurance Analyst Relationship Specialty Start Date End Date Ron Peterson MD PCP - General Family Medicine 12/31/22 Ryan Ruiz MD [address] [place] [address] PCP - [employer] 05/05/24 documented as of this encounter
--- OUTSIDE RECORDS SUMMARY | 2025-01-03 20:54 | XMS_ITS | Encounter Summary ---
Author Organization [facility] Address [address] [facility] [place] [address] Care Team Providers Care Radioisotope Production Operator Name Role Phone Ron Peterson MD Primary Care Provider [phone] Ryan Ruiz MD Unavailable [phone] Encounter Details Date Type Department Care Team (Late Contact Info) Description 03/08/2024 Abstract [facility] CI FM 112 [facility] 110 [place] [address] Ron Peterson MD [address] [place] [address] Social History Tobacco Use Types Packs/Day Years [...] EST Office Visit [facility] BCP OB [address] [facility] [place] [address] Laura Jones PA [address] [facility] [place] [address] documented as of this encounter Visit Diagnoses Not on filedocumented in this encounter Care Teams Radioisotope Production Operator Relationship Specialty Start Date End Date Ron Peterson MD PCP - General Family Medicine 12/31/22 Ryan Ruiz MD [address] [place] [address] PCP - [employer] 05/05/24 documented as of this encounter
--- OUTSIDE RECORDS SUMMARY | 2025-01-03 20:54 | XMS_ITS | Encounter Summary ---
Author Organization [facility] Address [address] [place] [address] Care Team Providers Care Application Security Developer Name Role Phone Ron Peterson MD Primary Care Provider [phone] Encounter Details Date Type Department Care Team (Late st Contact Info) Description 07/06/2013 PAT Telephone STV Pre-Admit Testing [address] [place], [place] [id number] Bandar Chamberlain, DEVEN Social History Tobacco Use Types Packs/Day Years Used Date Smoking Tobacco: Never Alcohol Use Standard Drinks/Week Comments No 0 (1 standard drink = 0.6 oz pur e alcohol) Comments No Sex and Gender Information Value Date Recorded Sex Assigned at Not on file Legal Sex Female 11:57 AM EST Gender Identity Not on file Sexual Orientation Not on file documented as of this encounter Last Filed Vital Signs Vital Sign Reading Time Taken Comments Blood Pressure - - Pulse - - Temperature - - Respiratory Rate - - Oxygen Saturation - - Inhaled Oxygen Concentration - - Weight 59 kg (130 lb) 07/06/2013 2:41 PM EST Height 154.9 cm (5' 1 ) 07/06/2013 2:41 PM EST Body Mass Index 24.56 07/06/2013 2:41 PM EST documented in this encounter Plan of Treatment Not on file documented as of this encounter Visit Diagnoses Not on filedocumented in this encounter Care Teams Application Security Developer Relationship Specialty Start Date End Date Ron Peterson MD [address] [place] [address] PCP - General 07/06/13 documented as of this encounter
--- OUTSIDE RECORDS SUMMARY | 2025-01-03 20:54 | XMS_ITS | Encounter Summary ---
Author Organization [facility] Address [address] [facility] [place] [address] Care Team Providers Care It Quality Analyst Name Role Phone Ron Peterson MD Primary Care Provider [phone] Ryan Ruiz MD Unavailable [phone] Encounter Details Date Type Department Care Team ([facility] Contact Info) Description 12/09/2023 Abstract [facility] CI FM 112 [facility] 110 [place] [address] Ryan Ruiz MD 112 [facility] 110 [place] [address] Social History Tobacco Use Types Packs/Day Years [...] Visit [facility] BCP OB [address] [facility] [place] [address] Laura Jones PA [address] [facility] [place] [address] documented as of this encounter Visit Diagnoses Not on filedocumented in this encounter Care Teams It Quality Analyst Relationship Specialty Start Date End Date Ron Peterson MD PCP - General Family Medicine 12/31/22 Ryan Ruiz MD [address] [place] [address] PCP - [employer] 05/05/24 documented as of this encounter
--- OUTSIDE RECORDS SUMMARY | 2025-01-03 20:54 | XMS_ITS | Encounter Summary ---
Author Organization [facility] Address [address] [facility] [place] [address] Care Team Providers Care Cutch Cleaner Name Role Phone Ron Peterson MD Primary Care Provider [phone] Tita Ruiz MD Unavailable [phone] Encounter Details Date Type Department Care Team (Late Contact Info) Description 02/18/2024 Clinisync Result Encounter NOMS External Department Unsolicited [...] EST Office Visit [facility] BCP OB [address] [facility] [place] [address] Laura Jones PA [address] [facility] [address] [place], [place] [address] documented as of this encounter Procedures Procedure Name Priority Date/Time Associated Diagnosis Comments MM TOMOSYNTHESIS SCREENING BI 02/18/2024 9:56 AM EDT documented in this encounter Results * MM TOMOSYNTHESIS SCREENING BI (02/18/2024 9:56 AM EDT) Anatomical Region Laterality Modality Other 02/18/2024 9:56 AM EDT Narrative 02/18/2024 9:57 AM EDT The [address] [address] Mammography Report Signed Patient: MADAN COONEY MR#: [id number] : 1950 Acct:[id number] Age/Sex: 73 / F ADM Date: 02/17/24 Loc: MAMMO Attending Dr: Theo Ley D.O. Ordering Physician: Theo Ley D.O. Results: Date of Service: 02/17/24 Follow Up: Procedure(s): MM tomosynthesis screening BI Accession Number(s): [id number] cc: TITA RUIZ ; Theo Ley D.O. Patient Name: MADAN COONEY MR#: [id number] : 1950 Exam Date: 02/17/2024 Ordering Doctor: DR Theo Ley . RADIOLOGY REPORT PROCEDURE: MM TOMOSYNTHESIS SCREENING BI COMPARISON: MM TOMOSYNTHESIS SCREENING BI, 02/10/2023. MG MAMM SCREEN 3D JASMEET CAD, 02/09/2022. MG MAMM SCREEN 3D JASMEET CAD, 02/03/2021. MG MAMM SCREEN JASMEET W CAD, 01/21/2015. INDICATIONS: Screening Calculator Name NCI Breast Cancer Risk Assessment Tool 5 Year Breast Cancer Risk 1.70% Lifetime Breast Cancer Risk 4.70% Personal Breast Cancer No Personal Ovarian Cancer No Treatments None Family Cancers Father with prostate cancer at age 58. LOCATION: [facility] BREAST COMPOSITION: The breasts are heterogeneously dense,which may obscure small masses. FINDINGS: DIAGNOSTIC CATEGORY 1--NEGATIVE. RIGHT BREAST: No significant suspicious finding. No significant change has occurred. LEFT BREAST: No significant suspicious finding. No significant change has occurred. RECOMMENDATIONS: ROUTINE MAMMOGRAM AND CLINICAL EVALUATION IN 12 MONTHS. PLEASE NOTE: A NORMAL MAMMOGRAM DOES NOT EXCLUDE THE POSSIBILITY OF BREAST CANCER. A CLINICALLY SUSPICIOUS PALPABLE LUMP SHOULD BE BIOPSIED. Dictated by: Leander Donahue M.D. on 02/18/2024 at 09:55 Approved by: Leander Donahue M.D. on 02/18/2024 at 09:56 Dictated By: Leander Donahue M.D. Signed By: 02/18/24 0957 DD/ TD/TT: Lokie Engineer: Procedure Note Radiology, Radiologist, MD - 02/18/2024 [place] [address] Mammography Report Signed Patient: MADAN COONEY LMR#: [id number] : 1950cct:[id number] Age/Sex: 73 / FADM Date: 02/17/24 Loc: MAMMO Attending Dr: Theo Ley D.O. Ordering Physician: Theo Ley D.O.Results: Date of Service: 02/17/24Follow Up: Procedure(s): MM tomosynthesis screening BI Accession Number(s): [id number] cc: TITA RUIZ ; Theo Ley D.O. Patient Name: MADAN COONEY MR#: [id number] : 1950 Exam Date: 02/17/2024 Ordering Doctor: DR Theo Ley . RADIOLOGY REPORT PROCEDURE: MM TOMOSYNTHESIS SCREENING BI COMPARISON: MM TOMOSYNTHESIS SCREENING BI, 02/10/2023. MG MAMM MZAMQT4L JASMEET CAD, 02/09/2022. MG MAMM SCREEN 3D JASMEET CAD, 02/03/2021. MG MAMM SCREENBIL W CAD, 01/21/2015. INDICATIONS: Screening Calculator Name NCI Breast Cancer Risk Assessment Tool 5 Year Breast Cancer Risk 1.70% Lifetime Breast Cancer Risk 4.70% Personal Breast Cancer No Personal Ovarian Cancer No Treatments None Family Cancers Father with prostate cancer at age 58. LOCATION: [facility] BREAST COMPOSITION: The breasts are heterogeneously dense,which may obscure small masses. FINDINGS: DIAGNOSTIC CATEGORY 1--NEGATIVE. RIGHT BREAST: No significant suspicious finding. No significant changehas occurred. LEFT BREAST: No significant suspicious finding. No significant changehas occurred. RECOMMENDATIONS: ROUTINE MAMMOGRAM AND CLINICAL EVALUATION IN 12 MONTHS. PLEASE NOTE: A NORMAL MAMMOGRAM DOES NOT EXCLUDE THE POSSIBILITY OFBREAST CANCER. A CLINICALLY SUSPICIOUS PALPABLE LUMP SHOULD BE BIOPSIED. Dictated by: Leander Donahue M.D. on 02/18/2024 at 09:55 Approved by: Leander Donahue M.D. on 02/18/2024 at 09:56 Dictated By: Leander Donahue M.D. Signed By:02/18/2457 DD/ 5 TD/TT: Lokie Engineer: Generic External Data Provider [facility] Final Result documented in this encounter Visit Diagnoses Not on filedocumented in this encounter Care Teams Cutch Cleaner Relationship Specialty Start Date End Date Ron Peterson MD PCP - General Family Medicine 12/31/22 Tita Ruiz MD 112 [facility] 110 [place] [address] PCP - [employer] 05/05/24 documented as of this encounter
--- OUTSIDE RECORDS SUMMARY | 2025-01-03 20:54 | XMS_ITS | Patient Health Record ---
Author Organization [facility] Address [address] [place] [address] Care Team Providers Care Deep Fryer Assembler Name Role Phone PROVIDER, UNKNOWN Primary Care Provider Unavaila teresa Leander Aguiar Unavailable [phone] xxZohaibLayla bergeronle Unavailable Allergies Allergen (clinical drug ingredient) Drug/Non Drug Allergy documented on EMR Reaction Allergy Type Onset Date Status SULFA (uncoded) Unknown Allergy Acti ve ciprofloxacin ciprofloxacin Unknown Drug Allergy Active levofloxacin levoFLOXacin Unknown Drug Allergy A ctive Results Component Value Reference Range Notes SCC- OT EVAL AND TREAT 3X/WE EK FOR 6 WEEKS Reviewed date:05/18/2024 10:59:30 AM Interpretation: Performing Lab: Notes/Report: SCC- WRIST 3 VIEW LEFT [address] Reviewed date:07/11/2024 04:05:23 PM Interpretation: Performing Lab: Notes/Report: SCC- WRIST 3 VIEW LEFT [id number] Reviewed date:05/18/2024 10:59:38 AM Interpretation: Performing Lab: Notes/Report: Reason For Referral No Information Medications Medication SIG (Take, Route, Fr equency, Duration) Notes Start Date End Date Status hydroCHLOROthiazide Active simvastatin Active metoprolol Active potassium chloride A ctive Calcium 500+D Active magnesium citrate Ac tive sertraline Active apixaban Active lisinopril Active Social History Tobacco Use: Social History Observation Description Date Details (start date - stop date) Never Smoker NA - NA AUDIT-C (Standard) Question Answer Notes Did you have a drink containing alcohol in the p ast year? No Points 0 Interpretation Negative Tobacco Control (Standard) Question Answer Notes Tobacco use: Nonsmoker Problems Problem Type SNOMED Code ICD Code Onset Dates Problem Status W/U Status Risk Notes Problem [id number] Other intraarticular fracture of lower end of left radius, subsequent encounter for closed fracture with routine healing (S52.572D) Active confirmed Vital Signs Height 5'0 in 06/05/2024 Weight 135 lbs 06/05/2024 BMI 26.36 06/05/2024 Encounters Encounter Location Date Provider Diagnosis [facility] [address] [facility] [place] [address] [place] [address] 03/27/2024 Luz Stoner Other intraarticular fracture of lower end of right radius, initial encounter for closed fracture S52.571A [facility] [address] [facility] [place] [address] [place] [address] 04/03/2024 Luz Stoner Other intraarticular fracture of lower end of left radius, subsequent encounter for closed fracture with routine healing S52.572D [facility] [facility] [place] [address] [place] [address] 04/10/2024 Luz Stoner Other closed fracture of distal end of left radius, [facility] encounter S52.592A [facility] [address] [place] [address] [facility] [place] [address] [place] [address] 05/08/2024 Leander Aguiar Other intraarticular fracture of lower end of left radius, subsequent encounter for closed fracture with routine healing S52.572D [facility] [address] [facility] [place] [address] [place] [address] 06/05/2024 Leander Aguiar Other intraarticular fracture of lower end of left radius, subsequent encounter for closed fracture with routine healing S52.572D Assessments Encounter Date Diagnosis (ICD Code) Assessment Notes Treatment Notes Treatment Clinical Notes Section Notes 03/27/2024 Other intraarticular fracture of lower end of right radius, initial encounter for closed fracture (ICD-10 - S52.571A) 04/03/2024 Other intraarticular fracture of lower end of left radius, subsequent encounter for closed fracture with routine healing (ICD-10 - S52.572D) 04/10/2024 Other closed fracture of distal end of left radius, initial encounter (ICD-10 - S52.592A) 05/08/2024 Other intraarticular fracture of lower end of left radius, subsequent encounter for closed fracture with routine healing (ICD-10 - S52.572D) 06/05/2024 Other intraarticular fracture of lower end of left radius, subsequent encounter for closed fracture with routine healing (ICD-10 - S52.572D) 03/27/2024 Other Given the patient's swelling in her wrist secondary to her distal radius fracture I will keep her in the volar splint for another week and we will plan to have her return to the office for casting. 04/03/[address] patient in a short arm cast today as her swelling has greatly reduced since her last visit. I will have her return to the office in 1 week to repeat x-rays in her cast. 04/10/2024 Other Patient doing well in a short arm cast and is pain-free. We will see her back in a month to remove cast and repeat x-rays. 05/08/2024 Other We will get her into a removable Velcro splint. She will avoid lifting more than 5 to 10 pounds. We will get her into therapy to work on restoring motion. She will follow-up in 4 weeks to repeat x-rays and reassess her progress. Import medication 06/05/2024 Other Patient is doing well. She will continue to progress with therapy. She will increase activities of daily living as she can tolerate. She will follow-up on an as-needed basis. Import medication Plan Of Treatment Pending Test Test Name Order Date SCC- WRIST 3 VIEW LEFT [address] 04/03/2024 SCC- WRIST 3 VIEW LEFT [address] 04/10/2024 Insurance Providers Payer Name Payer Address Payer Phone Subscriber Number Group Number Insured Name Patient Relationship to Insured Coverage Start Date Coverage End Date Medicare Aet[employer] [address] [place] [address] [id number] MADAN COONEY Self - patient is the insured Medical (General) History Medical History History ICD Code Heart problems: High Blood Pressure Drug Allergies
--- OUTSIDE RECORDS SUMMARY | 2025-01-03 20:54 | XMS_ITS | Encounter Summary ---
Author Organization [facility] Address [address] [facility] [place] [address] Care Team Providers Care Office Messenger Name Role Phone Ron Peterson MD Primary Care Provider [phone] Ryan Ruiz MD Unavailable [phone] Encounter Details Date Type Department Care Team ([facility] Contact Info) Description 12/09/2023 Abstract [facility] CI FM 112 [facility] 110 [place] [address] Ryan Ruiz MD 112 [facility] 110 [place] [address] Social History Tobacco Use Types Packs/Day Years [...] EST Office Visit [facility] BCP OB [address] [place] [address] Laura Jones PA [address] [facility] [place] [address] documented as of this encounter Visit Diagnoses Not on filedocumented in this encounter Care Teams Office Messenger Relationship Specialty Start Date End Date Ron Peterson MD PCP - General Family Medicine 12/31/22 Ryan Ruiz MD [address] [place] [address] PCP - [employer] 05/05/24 documented as of this encounter
--- OUTSIDE RECORDS SUMMARY | 2025-01-03 20:54 | XMS_ITS | Encounter Summary ---
Author Organization [facility] Address [address] [facility] [place] [address] Care Team Providers Care Flame Channeler Name Role Phone Ron Peterson MD Primary Care Provider [phone] Ryan Ruiz MD Unavailable [phone] Encounter Details Date Type Department Care Team ([facility] Contact Info) Description 12/09/2023 Abstract [facility] CI FM 112 [facility] 110 [place] [address] Ryan Ruiz MD 112 [facility] 110 [place] [address] Social History Tobacco Use Types Packs/Day Years [...] EST Office Visit [facility] BCP OB [address] [facility] [place] [address] Laura Jones PA [address] [facility] [place] [address] documented as of this encounter Visit Diagnoses Not on filedocumented in this encounter Care Teams Flame Channeler Relationship Specialty Start Date End Date Ron Peterson MD PCP - General Family Medicine 12/31/22 Ryan Ruiz MD [address] [place] [address] PCP - [employer] 05/05/24 documented as of this encounter
--- OUTSIDE RECORDS SUMMARY | 2025-01-03 20:54 | XMS_ITS | Encounter Summary ---
Author Organization [facility] Address [address] [facility] [place] [address] Care Team Providers Care Aging Department Supervisor Name Role Phone Ron Peterson MD Primary Care Provider [phone] Ryan Ruiz MD Unavailable [phone] Encounter Details Date Type Department Care Team ([facility] Contact Info) Description 12/09/2023 Abstract [facility] CI FM 112 [facility] 110 [place] [address] Ryan Ruiz MD 112 [facility] 110 [place] [address] Social History Tobacco Use Types Packs/Day Years [...] EST Office Visit [facility] BCP OB [address] [facility] [place] [address] Laura Jones PA [address] [facility] [place] [address] documented as of this encounter Visit Diagnoses Not on filedocumented in this encounter Care Teams Aging Department Supervisor Relationship Specialty Start Date End Date Ron Peterson MD PCP - General Family Medicine 12/31/22 Ryan Riuz MD [address] [place] [address] PCP - [employer] 05/05/24 documented as of this encounter
--- OUTSIDE RECORDS SUMMARY | 2025-01-03 20:55 | XMS_ITS | Clinical Summary ---
Author Organization 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 Sulfa (Sulfonamide Antibiotics) 12/02/2022 Medications calcium carbonate 600 mg calcium (1,500 mg) tablet Take 600 mg by mouth every 12 (twelve) hours. Active cholecalciferol, vitamin D3, 50 mcg (2,000 unit) capsule Take 2,000 Units by mouth in the morning. Active sertraline (Zoloft) 50 mg tablet Take 50 mg by mouth in the morning. Active apixaban (Eliquis) 5 mg tabletIndications: Paroxysmal atrial fibrillation (CMS/HCC) Take 1 tablet (5 mg) by mouth in the morning and at bedtime. Do not start before December 01, 2023. 60 tablet 12/01/19 24 Active Additional Information Patient taking differently:5 mg oral2 times daily, Reported on 02/01/2024 simvastatin (Zocor) 10 mg tabletIndications: Hyperlipidemia, unspecified hyperlipidemia type Take 1 tablet (10 mg) by mouth at bedtime. 90 tablet 3 02/18/20 24 Active lisinopriL-hydroch lorothiazide 10-12.5 mg tabletIndications: Benign hypertensive heart disease without congestive heart failure Take 1 tablet by mouth once daily as directed. 90 tablet 3 06/14/20 24 Active Additional Information Patient taking differently: 0.5 tabletoral Once Daily, Reported on 07/27/2024 potassium chloride CR (Klor-Con) 10 mEq ER tabletIndications: Benign hypertensive heart disease without congestive heart failure TAKE 2 TABLETS BY MOUTH IN THE MORNING 180 tablet 3 08/25/19 25 Active metoprolol succinate XL (Toprol-XL) 100 mg 24 hr tabletIndications: Benign hypertensive heart disease without congestive heart failure TAKE 1 TABLET BY MOUTH ONCE DAILY DIRECTED 90 tablet 3 08/25/19 25 Active Active Problems Patient Care Coordination No te Formatting of this note migh t be different from the original. Patient notified of abnormal stress test. Recommend coronary angiogram for further ischemic evaluation. Discussed risks vs benefits. Patient is agreeable to proceed. Problem Noted Date Diagnosed Date Left wrist pain 05/09/2024 Oth intartic fracture of lower end of left radiu s, init 05/09/2024 Nonobstructive atherosclerosis of coronary arter y 03/08/2024 Abnormal stress ECG 12/14/2023 Osteopenia of multiple sites 12/06/2023 Pulmonary hypertension 12/06/2023 Abnormal stress test 12/01/2023 Benign hypertensive heart di sease without congestive heart failure 10/29/2023 Hypokalemia 10/29/2023 Hypomagnesemia 10/29/2023 Mixed hyperlipidemia 10/29/2023 Anxiety disorder, unspecified 10/28/2023 Atrophic vaginitis 12/30/2022 12/30/2022 Mass of left adrenal gland 12/30/202212/30 Pain in female genitalia on intercourse 12/31/19 23 12/30/2022 Essential hypertension 12/30/2022 Assessment & Plan (12/30/2022 10:04 AM EDT): - elevated today, she states this normally low - we will have her check her blood pressure 2-3 times a day for 1 week and send clinic the readings - continue Toprol-XL 50 mg daily, Zocor 10 mg daily, lisinopril- hydrochlorothiazide 10-12.5 mg daily Nonrheumatic mitral valve regurgitation 12/31/19 Assessment & Plan (12/30/2022 10:05 AM EDT): - history of mild regurgitation from echo 2020 - we will repeat echocardiogram to assess valvular regurgitation and LA size Atrial fibrillation 02/24/2021 Assessment & Plan (12/30/2022 10:04 AM EDT): -History of paroxysmal A-fib, recent ER visit does not look like she had A-fib - continue Eliquis 5 mg twice daily - [id number] at least 3 for age, gender, hypertension - continue metoprolol XL 50 mg daily - in the past she was on amiodarone for short-term, converted chemically and then amiodarone was discontinued - recent ER visit she had elevated TSH Macular cyst, hole, or pseudohole of retina 09/201312/30/2022 Encounters Date Type Department Care Team Description 11/19/2024 Orders Only [facility] [address] [place] [address] Turner Harding MD 11/09/2024 4:20 PM EDT Ancillary Procedure [facility] [address] [place] [address] Awareness of heartbeats from Last 3 Months Immunizations Immunization Administration Dates Next Due Covid (Pfizer) Bivalent Ethan ter =>12 YRS 05/14/2022 Tdap 12/19/2016 Unspecified Sars-Cov-2 Vaccination 10/14,04/14/2021,09/24/2020,2020 Social History Tobacco Use Types Packs/Day Years Used Date Smoking Tobacco: Never Smokeless Tobacco: Never Tobacco Cessation:Counseling Given: Not Answered Alcohol Use Standard Drinks/Week Comments Not Currently 0 (1 standard drink = 0.6 oz pur e alcohol) [place] Safety & Environment Answer Date Rec orded Fear of Current or Ex-Partner Not on file Emotionally Abused Not on file 08/26/2023 Physically Abused Not on file 08/26/2023 Sexually Abused Not on file 08/26/2023 Physically or Sexually Abused Not on file Comments No Sex and Gender Information Value Date Recorded Sex Assigned at Not on file Legal Sex Female 12:39 AM EDT Gender Identity Not on file Sexual Orientation Not on file Last Filed Vital Signs Vital Sign Reading Time Taken Comments Blood Pressure 138/78 07/27/2024 1:29 PM EST Pulse 69 07/27/2024 1:29 PM EST Temperature 36.9 C (98.4 F) 11/03/2023 1:16 PM EDT Respiratory Rate 22 01/13/2024 10:45 AM EDT Oxygen Saturation 95% 07/27/2024 1:29 PM EST Inhaled Oxygen Concentration - - Weight 61.2 kg (135 lb) 07/27/2024 1:29 PM EST Height 152.4 cm (5') 07/27/2024 1:29 PM EST Body Mass Index 26.37 07/27/2024 1:29 PM EST Plan of Treatment Health Maintenance Due Date Last Done Comments CT Colonography 1950 Colonoscopy 1950 FIT-DNA 1950 FOBT 1950 Medicare Annual Wellness (AWV) 1950 Sigmoidoscopy 1950 Depression Screening 1964 Pneumococcal Vaccine: 50+ Years (1 of 2 - PCV) 09/03/1971 Zoster Vaccines (1 of 2) 2002 Fall Risk Screening 2017 Mammogram 01/08/2019 01/08/2017 COVID-19 Vaccine ( season) 2024 08/19/2023, 05/14/2022, 10/14/2021, Additional history exists Influenza Vaccine (#1) 2025 Colorectal Cancer Screening 09/26/2025 FIT 09/26/2025 09/26/2024 Adult Tetanus 12/19/2026 12/19/2016 HIB Vaccines Aged Out No longer eligi ble based on patient's age to complete this topic HPV Vaccines Aged Out No longer eligi ble based on patient's age to complete this topic IPV Vaccines Aged Out No longer eligi ble based on patient's age to complete this topic Meningococcal B Vaccine Aged Out No l onger eligible based on patient's age to complete this topic Meningococcal Vaccine Aged Out No emiliano ewelina eligible based on patient's age to complete this topic Rotavirus Vaccines Aged Out No longer eligible based on patient's age to complete this topic Medical Devices Implanted Type Area Splitter Tender Device Identifier Shelf Expiration Date Model / Serial / Lot Monitor,Cardi ac,Lux,Dxii+I - [id number] - [id number] Implanted:Qty : 1 on 11/24/2023 by Turner Harding MD at [facility] Implantable Loop Recorder Left: Chest [employer] 03/29/2025 [id number] / [id number] / Procedures Procedure Name Priority Date/Time Associated Diagnosis Comments CARDIAC DEVICE CHECK CHECK - REMOTE Routine 11/20/2024 9:57 AM EDT Awareness of heartbeats CARDIAC DEVICE CHECK - REMOTE - LOOP RECORDER (ILR) Routine 11/19/2024 12:00 AM EDT from Last 3 Months Results * CARDIAC DEVICE CHECK - REMOTE - LOOP RECORDER (ILR) (11/20/2024 9:57 AM EDT) us Turner Harding MD CV IMPLANTABLE CARDIAC DEVICE NM OCEDURES Final Result CPACS * Cardiac device check - Remote loop recorder (ILR) (11/19/2024 12:00 AM EDT) Anatomical Region Laterality Modality Other 11/19/2024 Turner Harding MD CV IMPLANTABLE CARDIAC DEVICE NM OCEDURES Final Result from Last 3 Months Insurance [employer] MEDICARE ADVANTAGE Advance Directives * Full Code (Latest Code Status on File) Date Activated Date Inactivated Comments 01/13/2024 9:10 AM 01/13/2024 2:55 PM Care Teams Residential Real Estate Assistant Relationship Specialty Start Date End Date Ryan Ruiz MD PCP - General Internal Medicine 01/05/24
--- OUTSIDE RECORDS SUMMARY | 2025-01-03 20:55 | XMS_ITS | Encounter Summary ---
Author Organization [facility] Address [address] [place] [address] Care Team Providers Care Medical Laboratory Technologist Name Role Phone Ron Peterson MD Primary Care Provider [phone] Ryan Ruiz MD Unavailable [phone] Encounter Details Date Type Department Care Team (Late st Contact Info) Description 09/14/2024 Abstract [facility] [address] [place] [address] Unallocated, [facility] Provider, [address] [place] [address] Social History Tobacco Use Types Packs/Day Years Used Date Smoking Tobacco: Never Passive Smoke Exposure: Never Smokeless Tobacco: Never Alcohol Use Standard Drinks/Week Comments Never 0 (1 standard drink = 0.6 oz pur e alcohol) PHQ-2 Answer Date Recorded Patient Health Questionnaire-2 Score 0 09/14/2024 Comments Unknown Sex and Gender Information Value Date Recorded Sex Assigned at Female 12/25/2023 11:22 AM EDT Legal Sex Female 11:18 PM EDT Gender Identity Female 12/25/2023 11:22 AM EDT Sexual Orientation Not on file documented as of this encounter Functional Status * Over the past 2 weeks, how often have you been bothered by any of the following problems? Question Answer Date of Assessment Author Little interest or pleasure in doing things Not at all 09/14/2024 10:00 AM EDT Nayeli Davison L PN Feeling down, depressed, or hopeless Not at all 09/14/2024 10:00 AM EDT Nayeli Davison L PN Patient Health Questionnaire -2 Score 0 09/14/2024 10:00 AM EDT Nayeli Davison L PN documented as of this encounter Plan of Treatment Upcoming Encounters Date Type Department Care Team (Late st Contact Info) Description 06/07/2025 9:00 AM EST Office Visit [facility] [address] [address] Laura Jones PA [address] [place] [address] documented as of this encounter Visit Diagnoses Not on filedocumented in this encounter Care Teams Medical Laboratory Technologist Relationship Specialty Start Date End Date Ron Peterson MD PCP - General Family Medicine 12/31/22 Ryan Ruiz MD [address] [facility] [address] [place] [address] PCP - [employer] 05/05/24 documented as of this encounter
--- OUTSIDE RECORDS SUMMARY | 2025-01-03 20:55 | XMS_ITS | Encounter Summary ---
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 Name Role Phone Ron Peterson MD Primary Care Provider [phone] Tita Ruiz MD Unavailable [phone] Encounter Details Date Type Department Care Team (Late Contact Info) Description 07/31/2024 Clinisync Result Encounter [facility] External Department Unsolicited [...] EST Office Visit [facility] [address] [place] [address] Laura Jones PA [address] [place], [place] [id number] documented as of this encounter Procedures Procedure Name Priority Date/Time Associated Diagnosis Comments CA ECHO DOPPLER COMPLETE 07/31/2024 10:41 AM EST documented in this encounter Results * CA ECHO DOPPLER COMPLETE (07/31/2024 10:41 AM EST) Anatomical Region Laterality Modality Other 07/31/2024 10:4 1 AM EST Narrative 07/31/2024 10:42 [place] [address] Cardiology Report Signed Patient: MADAN COONEY MR#: [id number] : 1950 Acct:[id number] Age/Sex: 73 / F ADM Date: 07/31/24 Loc: CARD Attending Dr: Holly Pelayo M.D. Ordering Physician: Holly Pelayo M.D. Date of Service: 07/31/24 Procedure(s): CA echo doppler complete Accession Number(s): [id number] cc: TITA RUIZ ; Holly Pelayo M.D. Patient Name: MADAN COONEY MR#: [id number] : 1950 Exam Date: 07/31/2024 Ordering Doctor: DR HOLLY PELAYO M.D. ECHOCARDIOGRAM REPORT PROCEDURE: CA ECHO DOPPLER COMPLETE INDICATIONS: Atrial fibrillation/flutter, Abnormal EKG COMPARISON: None. DESCRIPTION: COMPLETE ECHOCARDIOGRAM Real-time transthoracic echocardiography with 2D, M-mode, spectral and color flow Doppler performed. QUALITY: Technical quality was good. LEFT VENTRICLE: Normal chamber size. Normal left ventricular wall thickness. Global left ventricular systolic function is normal. LV EF: Estimated left ventricular ejection fraction is 55-60%. DIASTOLIC: Normal diastolic function. ATRIAL SEPTUM: LEFT ATRIUM: Moderate dilatation. RIGHT ATRIUM: Mild dilatation. RIGHT VENTRICLE: Normal chamber size. Normal right ventricular systolic function. TRICUSPID VALVE: Normal mobility and thickness. No stenosis with trivial regurgitation. No evidence of pulmonary hypertension. RVSP 31 mmHg MITRAL VALVE: Normal mobility and thickness. No evidence of mitral valve stenosis. There is no mitral annular calcification. Mild mitral regurgitation. AORTIC VALVE: Normal trileaflet appearance. No visible sclerosis. Normal leaflet mobility. No evidence of aortic valve stenosis. Trivial aortic regurgitation. AORTIC ROOT: Normal diameter and appearance, measuring 2.8 cm. Normal size ascending aorta measuring 2.4 cm. PULMONIC VALVE: Normal thickness and mobility. No stenosis. Trivial regurgitation. PERICARDIUM: No evidence of pericardial effusion. IVC: Collapses with inspirations. Normal size. PLEURA: CONCLUSION: 1. Normal left ventricular size and systolic function. Estimated LVEF is 55 to 60%. 2. Normal right ventricular size and systolic function. 3. Normal diastolic function. 4. Mild to moderate biatrial dilatation. 5. Mild mitral regurgitation. 6. Normal right-sided pressures. Adult Echocardiography Procedure Report Left Ventricle LVEDD (3.7 - 5.6 cm): 4.36 cm LVESD (2.2 - 4.0 cm): 3.09 cm LVIVS thickness (0.6 - 1.2 cm): 0.85 cm LVPW thickness (0.5 - 1.0 cm): 0.76 cm e': 0.10 m/s E - e': 8.57 LVOT Max Gradient: 3.92 mm[Hg] LVOT Area (cm2): 0.99 m/s Peak Velocity (LVOT): 0.99 m/s Mean Velocity (LVOT): 0.65 m/s LVOT Diameter 1.77 cm Left Ventricular Ejection Fraction: 55-60 % Left Atrium LA Volume Index (2D A2C): 35.11 ml/m2 Left Atrium Systolic Dimension: 3.51 cm Mitral Valve MV E to A Ratio: 1.05 Mitral Valve A-Wave Peak Velocity: 0.81 m/s Mitral Valve E-Wave Peak Velocity: 0.85 m/s Right Ventricle RV Internal Diastolic Dimension: 3.20 cm Aorta AO Root Diam: 2.81 cm Ascending Ao Diam: 2.44 cm Aortic Valve AoV Area (Peak Jimenez): 2.02 cm2, 2.02 cm2 AoV Area (VTI): 1.91 cm2, 1.91 cm2 Peak Velocity(Antegrade Flow): 1.20 m/s Peak Gradient(Antegrade Flow): 5.78 mm[Hg] Mean Velocity(Antegrade Flow): 0.83 m/s Mean Gradient(Antegrade Flow): 3.18 mm[Hg] Velocity Time Integral: 31.65 cm Tricuspid Valve Peak Velocity (Regurgitant Flow): 2.60 m/s, 2.24 m/s, 2.65 m/s Pulmonic Valve Mean Gradient: 2.15 mm[Hg], 2.32 mm[Hg] Mean Velocity: 0.69 m/s, 0.72 m/s Peak Velocity: 0.99 m/s Peak Gradient: 3.90 mm[Hg], 3.90 mm[Hg] Right Atrium Right Atrium Systolic Pressure: 41.00 ml, 41.00 ml Dictated by: Ryan Roberts M.D. on 07/31/2024 at 10:37 Approved by: Ryan Roberts M.D. on 07/31/2024 at 10:41 Dictated By: RYAN ROBERTS Signed By: 07/31/24 1042 DD/ 1041 TD/TT: Resident Caregiver: Procedure Note Radiology, Radiologist, MD - 07/31/2024 [place] [address] Cardiology Report Signed Patient: MADAN COONEY LMR#: [id number] : 1950cct:[id number] Age/Sex: 73 / FADM Date: 07/31/24 Loc: CARD Attending Dr: Holly Pelayo M.D. Ordering Physician: Holly Pelayo M.D. Date of Service: 07/31/24 Procedure(s): CA echo doppler complete Accession Number(s): [id number] cc: TITA RUIZ ; Holly Pelayo M.D. Patient Name: MADAN COONEY MR#: [id number] : 1950 Exam Date: 07/31/2024 Ordering Doctor: DR HOLLY PELAOY M.D. ECHOCARDIOGRAM REPORT PROCEDURE: CA ECHO DOPPLER COMPLETE INDICATIONS: Atrial fibrillation/flutter, Abnormal EKG COMPARISON: None. DESCRIPTION: COMPLETE ECHOCARDIOGRAM Real-time transthoracic echocardiography with 2D, M-mode, spectral and color flow Dopplerperformed. QUALITY: Technical quality was good. LEFT VENTRICLE: Normal chamber size. Normal left ventricular wall thickness. Global left ventricular systolic function is normal. LV EF: Estimated left ventricular ejection fraction is 55-60%. DIASTOLIC: Normal diastolic function. ATRIAL SEPTUM: LEFT ATRIUM: Moderate dilatation. RIGHT ATRIUM: Mild dilatation. RIGHT VENTRICLE: Normal chamber size. Normal right ventricularsystolic function. TRICUSPID VALVE: Normal mobility and thickness. No stenosis withtrivial regurgitation. No evidence of pulmonary hypertension. RVSP 31 mmHg MITRAL VALVE: Normal mobility and thickness. No evidence of mitralvalve stenosis. There is no mitral annular calcification. Mild mitral regurgitation. AORTIC VALVE: Normal trileaflet appearance. No visible sclerosis. Normal leaflet mobility. No evidence of aortic valve stenosis. Trivial aortic regurgitation. AORTIC ROOT: Normal diameter and appearance, measuring 2.8 cm. Normal size ascending aorta measuring 2.4 cm. PULMONIC VALVE: Normal thickness and mobility. No stenosis. Trivial regurgitation. PERICARDIUM: No evidence of pericardial effusion. IVC: Collapses with inspirations. Normal size. PLEURA: CONCLUSION: 1. Normal left ventricular size and systolic function. Estimated LVEF is55 to 60%. 2. Normal right ventricular size and systolic function. 3. Normal diastolic function. 4. Mild to moderate biatrial dilatation. 5. Mild mitral regurgitation. 6. Normal right-sided pressures. Adult Echocardiography Procedure Report Left Ventricle LVEDD (3.7 - 5.6 cm): 4.36 cm LVESD (2.2 - 4.0 cm): 3.09 cm LVIVS thickness (0.6 - 1.2 cm): 0.85 cm LVPW thickness (0.5 - 1.0 cm): 0.76 cm e': 0.10 m/s E - e': 8.57 LVOT Max Gradient: 3.92 mm[Hg] LVOT Area (cm2): 0.99 m/s Peak Velocity (LVOT): 0.99 m/s Mean Velocity (LVOT): 0.65 m/s LVOT Diameter 1.77 cm Left Ventricular Ejection Fraction: 55-60 % Left Atrium LA Volume Index (2D A2C): 35.11 ml/m2 Left Atrium Systolic Dimension: 3.51 cm Mitral Valve MV E to A Ratio: 1.05 Mitral Valve A-Wave Peak Velocity: 0.81 m/s Mitral Valve E-Wave Peak Velocity: 0.85 m/s Right Ventricle RV Internal Diastolic Dimension: 3.20 cm Aorta AO Root Diam: 2.81 cm Ascending Ao Diam: 2.44 cm Aortic Valve AoV Area (Peak Jimenez): 2.02 cm2, 2.02 cm2 AoV Area (VTI): 1.91 cm2, 1.91 cm2 Peak Velocity(Antegrade Flow): 1.20 m/s Peak Gradient(Antegrade Flow): 5.78 mm[Hg] Mean Velocity(Antegrade Flow): 0.83 m/s Mean Gradient(Antegrade Flow): 3.18 mm[Hg] Velocity Time Integral: 31.65 cm Tricuspid Valve Peak Velocity (Regurgitant Flow): 2.60 m/s, 2.24 m/s, 2.65 m/s Pulmonic Valve Mean Gradient: 2.15 mm[Hg], 2.32 mm[Hg] Mean Velocity: 0.69 m/s, 0.72 m/s Peak Velocity: 0.99 m/s Peak Gradient: 3.90 mm[Hg], 3.90 mm[Hg] Right Atrium Right Atrium Systolic Pressure: 41.00 ml, 41.00 ml Dictated by: Ryan Roberts M.D. on 07/31/2024 at 10:37 Approved by: Ryan Roberts M.D. on 07/31/2024 at 10:41 Dictated By: RYAN ROBERTS Signed By:07/31/24 1042 DD/ 1041 TD/TT: Resident Caregiver: Generic External Data Provider [facility] Final Result documented in this encounter Visit Diagnoses Not on filedocumented in this encounter Care Teams Metal Sander Relationship Specialty Start Date End Date Ron Peterson MD PCP - General Family Medicine 12/31/22 Tita Ruiz MD [address] [address] PCP - [employer] 05/05/24 documented as of this encounter
--- OUTSIDE RECORDS SUMMARY | 2025-01-03 20:55 | XMS_ITS | CCD ---
Author Organization [facility] CliniSymd Care Team Providers Care [place] Worker Name Role Phone DIONY Velazquez, DR DOBBS Primary Care Unavailable FREDY Velazquez, BRANDO Consulting Unavailable FREDY ., BRANDO Attending Unavailable FREDY Velazquez, BRANDO Admitting Unavailable DALI MYERS Consulting Unavailable EDWARD, DR TIFFANIE Ragland Consulting Unavailable CASSIE PERRY Attending Unavailable CASSIE PERRY Admitting Unavailable HOY ., DR DOBBS Primary Care Unavailable CASSIE PERRY Consulting Unavailable ANDREAY ., DR DOBBS Admitting Unavailable HOY ., DR DOBBS Primary Care Unavailable HOY ., DR DOBBS Consulting Unavailable ANDREAY ., DR DOBBS Attending Unavailable STEPHANY, DR [...] Primary Care Provider Ryan Ruiz MD Unavailable DWAYNE GLASGOW Attending Unavailable RYAN RUIZ Attending Unavailable RYAN RUIZ Attending Unavailable AMBERLY GALVIN Attending Unavailable TIFFANIE VILLANUEVA Referring Unavailable AMBERLY GALVIN Attending Unavailable TIFFANIE VILLANUEVA Referring Unavailable AMBERLY GALVIN Attending Unavailable TIFFANIE VILLANUEVA Referring Unavailable AMBERLY GALVIN Attending Unavailable TIFFANIE VILLANUEVA Referring Unavailable AMBERLY GALVIN Attending Unavailable TIFFANIE VILLANUEVA Referring Unavailable AMBERLY GALVIN Attending Unavailable TIFFANIE VILLANUEVA Referring Unavailable THEO LEY Attending Unavailable JEFEFRY DOE Attending Unavailable VILLANUEVA, TIFFANIE Estevez Referring Unavailable AMBERLY GALVIN Attending Unavailable TIFFANIE VILLANUEVA Referring Unavailable STEPHANIE, TURNER Referring Unavailable ELTAHAWY, EHAB Attending Unavailable ELTAHAWY, EHAB Referring Unavailable STEPHANIE, TURNER Referring Unavailable STEPHANIE, TURNER Referring Unavailable STEPHANIE, TURNER Referring Unavailable STEPHANIE, TURNER Referring Unavailable STEPHANIE, TURNER Referring Unavailable STEPHANIE, TURNER Referring Unavailable STEPHANIE, TURNER Referring Unavailable ELTAHAWY, EHAB Admitting Unavailable ELTAHAWY, EHAB Attending Unavailable ELTAHAWY, EHAB Admitting Unavailable ELTAHAWY, EHAB Attending Unavailable PRETTY PLAZA Attending Unavailable Allergies Allergy Classification Reported Allergen(s) Allergy Type Date of Onset Reaction(s) Facility (1 source) Sulfonamides (Antibiotic) Drug allergy (disorder) 09-01-19 21 [facility] Repository (1 source) Sulfamethoxazole / Trimethoprim Drug Allergy NAILS TURNED PURPLE [facility] Other (20 sources) Ciprofloxacin; 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: [CIPROFLOXACIN] Drug Allergy 11-24-19 24 [facility] (20 sources) levoFLOXacin; 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: [LEVOFLOXACIN] Drug Allergy 11-24-19 24 [facility] (20 sources) Sulfacetamide Drug Allergy 01-01-20 23 Hives [facility] (20 sources) Sulfonamides (Antibiotic) Drug Allergy 07-06-19 14 Unknown [facility] (1 source) Sulfonamides (Antibiotic); 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: [SULFA (SULFONAMIDE ANTIBIOTICS)] Propensity to adverse reactions to drug (disorder) 12-03-19 23 [facility] Repository Medications Current Medications Medication [...] capsule 12/01/2023 Active 24 hr metoprolol succinate 100 mg extended release oral tablet (20 sources) beta-Adrenergic Jimy Start: 08-25-2024 take 1 tablet by mouth once daily metoprolol succinate XL (Toprol-XL) 100 MG 24 hr tablet Take 100 mg by mouth Daily 08/25/2024 Active Start: 12-02-2022 End: 09-14-2024 take 1 tablet by mouth every twenty-four hours in the morning metoprolol succinate XL (Toprol-XL) 50 MG 24 hr tablet Take 50 mg by mouth in the morning. 12/02/2022 09/14/2024 Discontinued (Dose adjustment) Metoprolol Succi vicente ER Active molnupiravir 200 [...] Problem Classification Problem Date Documented Date Episodic/Chronic Administrative/social admission (2 sources) Patient encounter status; 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: [Other specified counseling] 09-14-2024 Episodic Anxiety disorders (20 sources) Anxiety disorder; 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: [Anxiety disorder, unspecified] Onset: 10-28-2023 12-03-2023 Chronic Cardiac dysrhythmias (20 sources) Atrial fibrillation; 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: [Unspecified atrial fibrillation] Onset: 02-24-2021 12-03-2023 Chronic Coagulation and hemorrhagic disorders (2 sources) Thrombophilia; 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: [Other thrombophilia] 03-08-2024 Chronic Conduction disorders (2 sources) Presence of automatic (implantable) cardiac defibrillator; 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: [Presence of automatic (implantable) cardiac defibrillator] Onset: 07-25-2024 Chronic Coronary atherosclerosis and other heart disease (20 sources) Non-obstructive atherosclerosis of coronary artery; 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: [Atherosclerotic heart disease of [place] coronary artery without angina pectoris] Onset: 03-08-2024 03-08-2024 Chronic Disorders of lipid metabolism (20 sources) Mixed hyperlipidemia; 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: [Mixed hyperlipidemia] Onset: 10-29-2023 12-03-2023 Chronic Essential hypertension (20 sources) Essential hypertension; 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: [Essential (primary) hypertension] Onset: 12-30-2022 12-03-2023 Chronic Heart valve disorders (20 sources) Non-rheumatic mitral [...] Onset: 08-25-2022 Chronic Other aftercare (1 source) longterm (current) use of anticoagulants; 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: [JIG BUILDER CURRNT USE ANTICOAGULANTS] Onset: 08-18-2022 Episodic Other aftercare (1 source) 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; 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: [OTH JIG BUILDER CURRENT DRUG THERAPY] Onset: 08-18-2022 Episodic Other bone disease and musculoskeletal deformities (1 source) Other specified disorders of bone density and structure, multiple sites; 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: [OTH D/O BONE DENSITY STRUCT MX SITE] Onset: 08-28-2022 Episodic Other bone disease and musculoskeletal deformities (20 sources) Osteopenia; 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: [Other specified disorders of bone density and structure, multiple sites] Onset: 12-06-2023 12-06-2023 Episodic Other endocrine disorders (20 sources) Mass of left adrenal gland; 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: [Other specified disorders of adrenal gland] Onset: 12-30-2022 12-03-2023 Chronic Other nutritional; endocrine; and metabolic disorders (1 [...] Other Problems Problem Classification Problem Date Documented Date Episodic/Chronic Cardiac dysrhythmias (7 sources) Palpitations; 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: [PALPITATIONS] Onset: 08-16-2022 Episodic Fluid and electrolyte disorders (20 sources) Hypokalemia; 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: [Hypokalemia] Onset: 08-18-2022 12-03-2023 Episodic Fracture of upper limb (20 sources) Closed fracture of distal end of radius; 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: [Other intraarticular fracture of lower end of left radius, initial encounter for closed fracture] Onset: 05-09-2024 05-09-2024 Episodic Other circulatory disease (4 sources) Other specified symptoms and signs involving the circulatory and respiratory systems; 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: [OTH SPEC SX SIGNS INVLV CIRC RS] Onset: 03-12-2022 Episodic Other non-traumatic joint disorders (20 sources) Pain of left wrist; 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: [Pain in left wrist] Onset: 05-09-2024 05-09-2024 Episodic Other screening for suspected conditions (not mental disorders or infectious disease) (10 sources) Encounter for screening mammogram for malignant [...] Value Interpretation Reference Range Facility Orders Onlyon 11-19-2024 Orders Only [id number] Sharri Cooney 1950 F Date Provider Department Center 11/19/2024 Gareth-[facility]NER [facility] No family history on file Normal [facility] Office Visiton 07-27-2024 Follow-up visit [id number] Sharri Cooney 1950 F Date Provider Department Center 07/27/2024 271-CECILIA PETER CARD [facility] No family history on file Level of Service:73119 CT OFFICE/OUTPATIENT ESTABLISHED MOD MDM 30 MIN Normal [facility] IGP,APTIMA HPV,AGE GDLNon AGE GDLN ACOG TESTING Note . [facility] Comment on above: TESTS RESULT FLAG UN ITS REF RANGE LAB Clinician Provided Cytology Information Source.............Cervix;Endocervix No. of containers..01 ThinPrep Vial Age Algo ACOG Rayna... Note 01 <21 or >65 or no age provided FLAG LEGEND: L-Low Normal,H-High Normal,LL-Alert Low,HH-Alert High <-Panic Low,>-Panic High,A-Abnormal,AA-Critical Abnormal Performed at: 01 =[facility] [place] [address] Prabha Vizcarra MD, PAP IG (IMAGE GUIDED) Note . [facility] Comment on above: TESTS RESULT FLAG UN ITS REF RANGE LAB DIAGNOSIS: 02 NEGATIVE FOR INTRAEPITHELIAL LESION OR MALIGNANCY. REACTIVE CELLULAR CHANGES AND/OR REPAIR ARE PRESENT. CELLULAR CHANGES ASSOCIATED WITH ATROPHY ARE PRESENT. Specimen adequacy: 02 Satisfactory for evaluation. Endocervical component may not be distinguished in cases of atrophy. Performed by: 02 Will Aaron, Inpatient Services Director (ASCP) Electronically si... 02 Monique Loyd MD, Pathologist . 02 Note: [...] <-Panic Low,>-Panic High,A-Abnormal,AA-Critical Abnormal Performed at: [address] [facility] [address] [address] Prabha Vizcarra MD, Performed at: =G - [facility] [address] [id number] De Icer: Prabha Vizcarra MD, Phone: [phone] Performed at: WB - [facility] [address] [id number] De Icer: Prahba Vizcarra MD, Phone: [phone] BRUSH-SPATULA CERVIX ENDOCERVIX [facility] ALL LIPID PROFILE (FASTING)o n 03-09-2024 CHOL HDL RATIO 2.4 Located within [facility] hcare Comment on above: 3.3 - 4.4 LOW RISK 4.4 - 7.1 AVERAGE RISK 7.1 - 11.0 MODERATE RISK >11.0 HIGH RISK Cholesterol [Mass/Vol] 154 mg/dL NINF - 200 mg/dL [facility] Cholesterol in HDL [Mass/Vol] 63 mg/dL High 40 - 60 mg/dL [facility] Comment on above: > or =60 mg/dl - LOW CARDIOVASCULAR RISK <40 mg/dl - HIGH CARDIOVASCULAR RISK Interpretation and review of laboratory results Abnormal [facility] Magnesium [Mass/Vol] 81.0 mg/dL [facility] Comment on above: <100 mg/dl OPTIMAL 100-129 mg/dl NEAR OR ABOVE OPTIMAL 130-159 mg/dl BORDERLINE HIGH 160-189 mg/dl HIGH >190 mg/dl VERY HIGH Magnesium [Mass/Vol] 10.4 mg/dL [facility] Triglyceride [Mass/Vol] 52 mg/dL NINF - 150 mg/dL [facility] Office Visiton 02-01-2024 Follow-up visit [id number] Sharri Cooney 1950 F Date Provider Department Center 02/01/2024 166-PRETTY PLAZA CARD [facility] No family history on file Level of Service:69714 CT OFFICE/OUTPATIENT ESTABLISHED MOD MDM 30 MIN Normal [facility] ANESon 01-13-2024 ANES Attestation signed by Cecilia Peter MD at 01/13/2024 8:28 AM Cecilia Peter MD, MPH, [facility], [facility], [facility] Interventional Cardiology Pager Email: [email or web address] Patient: Sharri Cooney Procedure Information Date/Time: 01/13/24 0830 Procedure: Coronary angiography; PC Approved (12/02-05/31) Location: [facility] EMAIL CAMPAIGN MANAGER 3 / [facility] (Cath) Providers: Cecilia Peter MD [...] discussed with attending. Additional Equipment Requests Normal [facility] HPon 01-13-2024 HP Attestation signed by Cecilia Peter MD at [...] to proceed. Cecilia Peter MD, MPH, [facility], [facility], [facility] Interventional Cardiology Pager Email: [email or web address] H&P reviewed. The patient was examined and there are no changes to the H&P. Sharri Cooney is a 73 y.o. year old with past medical history of A-fib RVR, hypertension, dyslipidemia, and mild MR presents for ischemic work up for Afib. Patient will undergo coronary angiography. [facility] NURSNOTEjennifer 01-13-2024 JAIME RN educated pt on d/c instructions. RN encouraged pt to voice any questions or concerns. Pt verbalizes no questions or concerns at this time. Pt was wheeled off of unit with all of belongings. Normal [facility] HPon 12-14-2023 HP New order for cardiac cath [facility] Orders Onlyon 12-14-2023 Orders Only [id number] Sharri Cooney 1950 F Date Provider Department Center 12/14/2023 Key-PRE[facility]Y PLA[facility] CARD [facility] No family history on file [facility] Telephoneon 12-10-2023 Telephone [id number] Sharri Cooney 1950 F Date Provider Department Center 12/10/2023 BASSAM GAR Alyssa VASC LAB [facility] No family history on file Normal [facility] Telephoneon 12-01-2023 Telephone [id number] Sharri Cooney 1950 F Date Provider Department [place] 12/01/20[address] [facility] [address] C[facility] No family history on file Normal [facility] COVID/FLU RT-PCRon SARS-CoV-2 (COVID-19) RNA VERONICA+probe Ql (Unsp spec) Positive [facility] Other COVID/FLU RT-PCR Negative [facility] Other SGOTon 10-23-2022 AST [Catalytic activity/Vol] 45 U/L Critically high 15-37 [facility] Comment on above: Performed By: #### A LT, AST #### [facility] [address] [place] [address] Dr. Fred Jackson [facility] 10-23-2022 ALT [Catalytic activity/Vol] 48 U/L Normal 14-59 [facility] Comment on above: Performed By: #### A LT, AST #### [facility] [address] [place] [address] Dr. Fred Jackson [facility] 09-10-2022 AST [Catalytic activity/Vol] 40 U/L Critically high 15-37 [facility] Comment on above: Performed By: #### A LT, AST #### [facility] [address] [place] [address] Dr. Fred Jackosn [facility] 09-10-2022 ALT [Catalytic activity/Vol] 52 U/L Normal 14-59 [facility] Comment on above: Performed By: #### A LT, AST #### [facility] [address] [place] [address] Dr. Fred Jackson DXA Skeletal system Views fo r bone densityon 08-25-2022 osteopenia [facility] Radiology Study observation (narrative) [facility] XR DEXA BONE DENSITYon 02-21 -2023 XR DEXA BONE DENSITY DEXA Bone Density Study CLINICAL: Evaluate bone mineral density. Postmenopausal COMPARISON: FINDINGS: The bone density study was assessed by dual-energy x-ray absorptiometry with the CHARMS PPEC scanner. The test results are expressed in [...] RAFIQ SEALS Date: 2022-08-25 09:50 Normal [facility] BNPon 08-16-2022 Natriuretic peptide B (Bld) [Mass/Vol] 87.0 pg/mL Normal <=900.0 [facility] Comment on above: Performed By: #### T SH, CMP, BNP, CMADM ####[facility] [address] [address]Dr. Fred Jackson CARDIAC JASSI ADMITon 023 CK [Catalytic activity/Vol] 152 U/L Normal 26-192 [facility] Comment on above: Performed By: #### T SH, CMP, BNP, CMADM ####[facility] [address] [address]Dr. Fred Jackson CK.MB [Mass/Vol] 2.96 ng/mL Normal <=3.60 [facility] Comment on above: Performed By: #### T SH, CMP, BNP, CMADM ####[facility] [address] [address]Dr. Fred Jackson HSTROP 6.1 pg/mL Normal 4.0-51.3 [facility] Comment on above: Result Comment: CUT- OFF POINTS HAVE BEEN ESTABLISHED BASED ON THE FOURTH UNIVERSAL DEFINITIONS OF MYOCARDIAL INFARCTION. THE UPPER REFERENCE LIMIT (URL) OF TROPONIN, DEFINED THE 99TH PERCENTILE OF cTnI DISTRIBUTION IN A REFERENCE POPULATION, HAS BEEN CONFIRMED THE DECISION THRESHOLD FOR ME DIAGNOSIS. Performed By: #### T SH, CMP, BNP, CMADM ####[facility] [address] [address]Dr. Fred Jackson ANGELI 80 ng/mL Normal 9-82 [facility] Comment on above: Performed By: #### T SH, CMP, BNP, CMADM ####[facility] [address] [id number]. Fred Jackson CBC AUTO DIFFon 08-16-2022 BASO # 0.1 103/ul Normal 0.0-0.1 [facility] Comment on above: Performed By: #### C BC #### [facility] [address] [address] [address] Fred Jackson Basophils/100 WBC (Bld) 1.4 % Normal 0.2-2.0 [facility] Comment on above: Performed By: #### C BC #### [facility] [address] [address] [address] Fred Jackson EO # 0.3 103/ul Normal 0.0-0.7 [facility] Comment on above: Performed By: #### C BC #### [facility] [address] [address] [address] Fred Jackson Eosinophils/100 WBC (Bld) 3.1 % Normal 0.9-7.0 [facility] Comment on above: Performed By: #### C BC #### [facility] [address] [address] [address] Fred Jackson Erythrocyte distribution width (RBC) [Ratio] 12.0 % Normal 11.0-15.0 [facility] Comment on above: Performed By: #### C BC #### [facility] [address] [address] [address] Fred Jackson Hematocrit (Bld) [Volume fraction] 40.5 % Normal 36.0-48.0 [facility] Comment on above: Performed By: #### C BC #### [facility] [address] [address] [address] Fred Jackson Hemoglobin (Bld) [Mass/Vol] 13.8 g/dL Normal 12.0-16.0 [facility] Comment on above: Performed By: #### C BC #### [facility] [address] [address] [address] Fred Jackson IG # 0.06 10e3/ul Critically high 0.00-0.03 [facility] Comment on above: Performed By: #### C BC #### [facility] [address] [place] [address] Dr. Fred Jackson IG % 0.6 % Critically high 0.0-0.5 [facility] Comment on above: Performed By: #### C BC #### [facility] [address] [place] [address] Dr. Fred Jackson LYMPH # 3.8 103/ul Normal 1.2-3.8 [facility] Comment on above: Performed By: #### C BC #### [facility] [address] [place] [address] Dr. Fred Jackson Lymphocytes/100 WBC (Bld) 36.6 % Normal 20.5-60.0 [facility] Comment on above: Performed By: #### C BC #### [facility] [address] [place] [address] Dr. Fred Jackson MANUAL DIFF REQ NO Normal [facility] Comment on above: Performed By: #### C BC #### [facility] [address] [place] [address] Dr. Fred Jackson MCH (RBC) [Entitic mass] 31.2 pg Normal 26.7-34.0 [facility] Comment on above: Performed By: #### C BC #### [facility] [address] [place] [address] Dr. Fred Jackson MCHC (RBC) [Mass/Vol] 34.1 g/dL Normal 29.9-35.2 [facility] Comment on above: Performed By: #### C BC #### [facility] [address] [place] [address] Dr. Fred Jackson MCV (RBC) [Entitic vol] 91.6 fL Normal 81.0-99.0 [facility] Comment on above: Performed By: #### C BC #### [facility] [address] [place] [address] Dr. Fred Jackson MONO # 1.2 103/ul Critically high 0.3-0.8 [facility] Comment on above: Performed By: #### C BC #### [facility] [address] [place] [address] Dr. Fred Jackson Monocytes/100 WBC (Bld) 11.3 % Normal 1.7-12.0 [facility] Comment on above: Performed By: #### C BC #### [facility] [address] [place] [address] Dr. Fred Jackson NEUT # 4.9 103/ul Normal 1.4-6.5 [facility] Comment on above: Performed By: #### C BC #### [facility] [address] [place] [address] Dr. Fred Jackson Neutrophils/100 WBC (Bld) 47.0 % Normal 43.0-75.0 [facility] Comment on above: Performed By: #### C BC #### [facility] [address] [place] [address] Dr. Fred Jackson Platelet mean volume (Bld) [Entitic vol] 8.9 fL Critically low 9.5-13.5 [facility] Comment on above: Performed By: #### C BC #### [facility] [address] [place] [address] Dr. Fred Jackson PLT 404 103/ul Normal 150-450 [facility] Comment on above: Performed By: #### C BC #### [facility] [address] [place] [address] Dr. Fred Jackson RBC 4.42 106/ul Normal 4.20-5.40 [facility] Comment on above: Performed By: #### C BC #### [facility] [address] [place] [address] Dr. Fred Jackson WBC 10.3 103/ul Normal 4.0-11.0 [facility] Comment on above: Performed By: #### C BC #### [facility] [address] [place] [address] Dr. Fred Jackson PROF 14(COMP METB)on 023 Albumin [Mass/Vol] 4.3 g/dL Normal 3.4-5.0 [facility] Comment on above: Performed By: #### T SH, CMP, BNP, CMADM ####[facility] [address] [address]Dr. Fred Jackson Albumin/Globulin [Mass ratio] 1.2 {ratio} Normal [facility] Comment on above: Performed By: #### T SH, CMP, BNP, CMADM ####[facility] [address] [place] [address]Dr. Fred Jackson ALP [Catalytic activity/Vol] 96 U/L Normal 46-116 [facility] Comment on above: Performed By: #### T SH, CMP, BNP, CMADM ####[facility] [address] [place] [address]Dr. Fred Manuel ALT [Catalytic activity/Vol] 34 U/L Normal 14-59 [facility] Comment on above: Performed By: #### T SH, CMP, BNP, CMADM ####[facility] [address] [place] [address]Dr. Fred Jackson Anion gap [Moles/Vol] 16.6 mmol/L Normal [facility] Comment on above: Performed By: #### T SH, CMP, BNP, CMADM ####[facility] [address] [place], [place] [address]Dr. Shivandana Jackson AST [Catalytic activity/Vol] 39 U/L Critically high 15-37 [facility] Comment on above: Performed By: #### T SH, CMP, BNP, CMADM ####[facility] [address] [address]Dr. Fred Jackson Bilirubin [Mass/Vol] 0.8 mg/dL Normal 0.2-1.0 [facility] Comment on above: Performed By: #### T SH, CMP, BNP, CMADM ####[facility] [address] [address]Dr. Fred [place] Calcium [Mass/Vol] 10.1 mg/dL Normal 8.5-10.1 [facility] Comment on above: Performed By: #### T SH, CMP, BNP, CMADM ####[facility] [address] [address]Dr. Fred [place] Chloride [Moles/Vol] 91 mmol/L Critically low 98-107 [facility] Comment on above: Performed By: #### T SH, CMP, BNP, CMADM ####[facility] [address] [place] [address]Dr. Fred [place] CO2 [Moles/Vol] 25.5 mmol/L Normal 21.0-32.0 [facility] Comment on above: Performed By: #### T SH, CMP, BNP, CMADM ####[facility] [address] [place] [address]Dr. Fred [place] Creatinine [Mass/Vol] 0.95 mg/dL Normal 0.55-1.02 [facility] Comment on above: Performed By: #### T SH, CMP, BNP, CMADM ####[facility] [address] [place] [address]Dr. Fred [place] EGFR-AF BULGARIAN >60 Normal >=60 [facility] Comment on above: Performed By: #### T SH, CMP, BNP, CMADM ####[facility] [address] [address]Dr. Fred [place] EGFR-NON AF BULGARIAN 58 mL/min/1.73m2 Critically low >=60 [facility] Comment on above: Performed By: #### T SH, CMP, BNP, CMADM ####[facility] [address] [place] [address]Dr. Fred [place] Globulin (S) [Mass/Vol] 3.6 g/dL Normal [facility] Comment on above: Performed By: #### T SH, CMP, BNP, CMADM ####[facility] [address] [place] [address]Dr. Fred [place] Glucose [Mass/Vol] 116 mg/dL Critically high 74-106 [facility] Comment on above: Performed By: #### T SH, CMP, BNP, CMADM ####[facility] [address] [place] [address]Dr. Fred [place] Potassium [Moles/Vol] 3.1 mmol/L Critically low 3.5-5.1 [facility] Comment on above: Performed By: #### T SH, CMP, BNP, CMADM ####[facility] [address] [place] [address]Dr. Fred [place] Protein [Mass/Vol] 7.9 g/dL Normal 6.4-8.2 [facility] Comment on above: Performed By: #### T SH, CMP, BNP, CMADM ####[facility] [address] [place] [address]Dr. Fred [place] Sodium [Moles/Vol] 130 mmol/L Critically low 136-[address] [facility] Comment on above: Performed By: #### T SH, CMP, BNP, CMADM ####[facility] [address] [place], [place] [address]Dr. Fred Jackson Urea nitrogen [Mass/Vol] 17.0 mg/dL Normal 7.0-18.0 [facility] Comment on above: Performed By: #### T SH, CMP, BNP, CMADM ####[facility] [address] [place], [place] [address]Dr. Fred [place] Urea nitrogen/Creatinin e [Mass ratio] 17.9 mg/mg Normal [facility] Comment on above: Performed By: #### T SH, CMP, BNP, CMADM ####[facility] [address] [place], [place] [address]Dr. Fred Jackson PROTIMEon 08-16-2022 INR Coag (PPP) [Relative time] 1.01 {INR} [facility] Comment on above: Performed By: #### P TT, PT ####[facility] [address] [place], [place] [address]Dr. Fred Jackson INR GUIDELINES SEE BELOW Normal [facility] Comment on above: Result Comment: DOTTY RED INR: 2.0 - 3.0 CONDITIONS NOT LISTED BELOW 2.5 - 3.5 FOR PROSTHETIC HEART VALVE REPLACEMENT 2.5 - 3.5 RECURRENT THROMBOSIS Performed By: #### P TT, PT ####[facility] [address] [place], [place] [address]Dr. Fred Jackson PT Coag (PPP) [Time] 10.7 s Normal 9.0-11.6 [facility] Comment on above: Performed By: #### P TT, PT ####[facility] [address] [place], [place] [address]Ky. Shivandana Jackson PTTon 08-16-2022 aPTT Coag (Bld) [Time] 33.9 s Normal 22.3-36.2 [facility] Comment on above: Performed By: #### P TT, PT ####[facility] [address] [place], [place] [address]IbCaroline Fred Manuel TROPONIN, HIGH SENSITIVITYon 08-16-2022 HSTROP 15.1 pg/mL Normal 4.0-51.3 [facility] Comment on above: Result Comment: CUT- OFF POINTS HAVE BEEN ESTABLISHED BASED ON THE FOURTH UNIVERSAL DEFINITIONS OF MYOCARDIAL INFARCTION. THE UPPER REFERENCE LIMIT (URL) OF TROPONIN, DEFINED THE 99TH PERCENTILE OF cTnI DISTRIBUTION IN A REFERENCE POPULATION, HAS BEEN CONFIRMED THE DECISION THRESHOLD FOR ME DIAGNOSIS. Performed By: #### H STROPN #### [facility] [address] [place], [place] [address] Dr. Fred Jackson TSHon 08-16-2022 TSH 4.364 uIU/mL Critically high 0.358-3.740 [facility] Comment on above: Performed By: #### T SH, CMP, BNP, CMADM ####[facility] [address] [place], [place] [address]WhCaroline Fred Manuel XR CHEST 1 Von 08-16-2022 XR CHEST [...] DALI MYERS Date: 2022-08-16 00:02 Normal [facility] Covid-19 PCR (CVDTBH)on 03-06 SARS-CoV-2 (COVID-19) RNA VERONICA+probe Ql (Unsp spec) Detected Critically abnormal NOT DETECTED [facility] Comment on above: Result Comment: This test is not yet approved or cleared by the [place] FDA. When there are no FDA-approved or cleared tests available, and other criteria are met, FDA can make tests available under an emergency access mechanism called an Emergency Use Authorization (EUA). The EUA for this test is supported by the [facility] Rn of Health and Human Service's (HHS's) declaration [...] longer be used). Performed By: #### [facility] ####[facility] [address] [place] [id number]. Shivandana Jackson CAROTID ART BILon 022 CAROTID ART JASMEET EXAMINATION: US CAROTID ART [...] by: TIFFANIE LEON Date: 2022-03-12 14:51 Normal [facility] MG MAMM SCREEN 3D JASMEET CADon 02-09-2022 MG MAMM SCREEN 3D JASMEET CAD Patient: SHARRI COONEY Exam Date: 02/09/2022 : 1950 Gender:F Ordering : DR RINKU PETERSON . Admission #: [id number] Family : Order #: [id number] CLICK HERE TO VIEW EXAM RADIOLOGY REPORT [...] prostate cancer at age 60. LOCATION: [facility] BREAST COMPOSITION: Heterogeneously dense,which may obscure [...] MD on 02/09/2022 at 09:50 Normal [facility] Coding Summary.on 03-12-2021 Coding Summary. CD:[id number] Gh0bWw+PGhlYWQ+PE1FV MUxM04fsHRghS5HE9jHD K6HCBFEKFFSWB6OBD0vy HY8KOtbA1SxemGp ZckcyEErRZ84YHc1ETX5 bNpcJFxggT5xqXPzN0m3 JvYoBT40kF91IIsjHTDd FqH4KiRusdbevDPt H6bkItWogQGxNki+PHRh YmxlIHdpZHRoPScxMDAl BuGtcFalMY5vFy7gWHQy LWNvbGxhcHNlOiBj s7ptLRUwMPveNV4dfMua Z7GozFY0QOIfe6n8Gf28 dHI+VMEmALE1vAycDDry q865HjKsq9yqWWV9 xKSyMMvoLVO5C59la2R8 MYJvDABcWUA7vAW3oH1p xJfyjvyjR8TieOHpAmM3 HCV2gTTgjL1sgVsp rwvcpK9gVno+M84SKW9S BKTLGC1HBxz4A9WmYotu dHI+UU00KYOhGV08hNVs nXXvh1lwrZf3XvIq FTFlGLM7zXayHDtpg8Hv GOEjC63scSIcw4B7QQYd aMtjyTRnZyQyzHV7wW4q GGoalwmlb5idcdrj Wojnl2aqxg76tC98T54l CSkhZGDxLBS9QLMdRQAi gSfkrh8frI2xSz9+IDxj f3fyi8ijyIj1QaNq EQHdifTbxXktGHH2g4Xq Zy64E8JeiBvay8WfWxb3 ib21tLEfj0P4mDA1SUjp NULvsH8zYFylSkN8 DLChRqHheU95uRJdVGge Gt3vgMxuxFoaIS1oJBGt yhmwZSVzvE3hOIQyfHFh xHkvUU4nBIXvssxx w674YwXxQBT7JKZyfJHq B8QcbV8oZeVvPEWsYXVo C3GhqWAvAHlbO291FQel SsU5ORUpbqPcS9Lm GKUtwQlhUlM0p4T3Xe8A j4ClkpktKPP3WWweAIR8 KjM5KgTfLbD8M8TjEey2 LZQbjKnvKL9iB5Co FXUlxynagbnqbFB8HVBw PFYovA24cTEdHKtzGd9v e5L0l873ZXKyESNlrB93 Wm7rgLetRBVftXFW cP3akjzmz6cewclwBgVe BKUyVIe8CUc6UCYxlLqb RoHwTXP6PlW9DVI6pTHs qG4sbOqfuyxwtN7w Oyc+A73nuY1vFZN8UJZ4 ogccKAKgwvGyVA86BU25 N6TcVwnhtBKctHB+PGRp urVniNqxVV8bHhUa a5yur7TrPCuiX0PpJXOx GGnkSek7GLPaWDW9wCI2 yC0xVIJoRQoih7H8mXV3 N1RrbtXxyj4to8ie WWHvYTbfE17reZXid1U1 NXDovBY1ZJZnuMoaHcGc wV99Bfg+FLMdeHpoy7Xb Ahnan8bmx4ovuNe5 IjMwJSIgdmFsaWduPSJ0 e3FjFt66T87vFLbcLJIv RIJiVDGcZIHgwQuctk0l lO1tLx9+PGNvbCB3 uHI1hU9uYDCpLkW7VIom O706EoJkwRJwXtjqn7wx k3lkxPq9BhEvORTnznWp mSogSWJ1n2HkCe02 C11aWGeaMPQhDTLdQNFe CYQzyMxtyf2lzH5bDa0+ LR6rv6nkzw69eD16jJR+ CXYmGSA2wZxwZMzp JZOdvJ8cWUgbJaI5NMKd NdDqgA29hYMhVJxyUp4m oOnmkMegSC5kCLNxjwlh y130VrJgg4xaUFIo fEUvKMurDCI9T29dd3G9 AHEuJTFeGJU0rJK4oL6a bGlnbjogbGVmdDsgdmVy xAgbOGjvIBtdH760 IHRvcDsnPlBhdGllbnQg LkJdETe8P3GuTms4NRRy yTadXM0ccLSmZEdsQh7e yDwcePjiMR9bRYTz bngsl325MpBqj8shODLf yCYlQNvyJQP0O91gv5N5 EFDdUCTvGBC2tCY5hA7y bGlnbjogbGVmdDsg okDbrPmqQBtlFCukY227 IHRvcDsnPkJpcnRoIERh vGM7GE69SJ06dWTpq0T1 iHP5F4YtZERbjiqm ordsqSN7UMYeSQGseB45 Si4aaGivAi0yZCBuHCS8 KUOjxJVkK2KqdR0jKfGz XNPhLYZvR4XqwOWl KThiW133OFtiQdD2ASPy wkFtY3OzMIWypYvrSkS9 e3C5Jy9EP3C8MK69US27 dIGyl9B1bJU5N7Tw BLXtdzniutvavAK2GSTs KJEhbX55Ty7wcCtzEt4f IHMsFBW6LEGwqLZaM4Wr tX0xKjBbMQBmXKOv O8VfkKDkYZhjD899XTyc CgL7JPBgrnWtI1UwFSJg yTqkAqV5c3K6Or1SGLi7 OA87HU01qARhi5C4 wHI4V7XxQJFxormikajy wNE7GDKkHPCiuT51Wr6u aJlrIt2rTINwEJA3EEWe tTLgH2LnbJ2pUyBb TPIoLRCfL7DosCKmDMwh C598RIpuIxC2YRVyiqPy X5XyWDEwtRqhQaV1o5K8 Yx8BYVJaIZ66ZNF6 mAZ7YG56JK05J7JoInqv dGFibGU+PHRhYmxlIHdp ZHRoPScxMDAlJyBzdHls SQ0gTk2cLHLbSFBr rJhvpJPsQtOpd3bwRUTr NTzwAQ9ncUisL2GegWS3 LQUgp7r1Zf22D64oB1Km dXA+HSHfwWZ3rMT3 gT8jYvSxZiX7DKlhB340 BqOmhDKpIuywk6gar8hx aNs8UjH1PUNlnhJlvHhs BBW5s0IlYp43Y58h IHdpZHRoPSIxNSUiIHZh sDvtqw7obB2cEm8+PGNv sLZ0yEC4oK6tMzLdBiL4 MQpuY808EkPgvIHl Lyovt7ifr0lgmQo6JoTx DWGgcsCytQxhOSY1q4Vu Pt95F9SqvPwip6KlJta8 ed43xSXwc0A3iLE6 N2YiQLXlswwyiMIfhQvp VG7eNZAbunmiMAUcjZ8e RZIwN8d4VlPiLmI1OPqs K7SktqQ8AZUkmPXc HDxjRBF8I44so8F2RCWn QSYgJMW8pPI8dM2rxUed bjogbGVmdDsgdmVydGlj HKfkWJqoJ842JEEp yPjaAYIgjV5tDTVwrJPk tAinXU8iEWZkdmrzUqML UlJPTEwsIFNVWkFOTkU8 D9XzPvm3OWCsuHxv YV0jpYNlHEfqOn5qzOfr hWefKN0gCMWfcizkGURj wZ1vPRYluPWeoDpfHP3c PJFqnpyaa590SiWl FFZ6WRJooQXwX8ImyC4e ZnViISVrWHBxS9CfoGNz EMstN392DQodQqU8ZAAw voSoF6MrENTjjTgp DiQ0c5U3Fb8nLy1zPC8o RTJiUU17GB29qLTds3J7 fZE0Z2BmXGFiojcvigcc zBM7EPPcBWViyV05 dLFzCIdjVb5zg8B5e169 PUCdDXWtxP95Tc3imTrm TPUlgTVEfP9lqcoky8kx cjogIzAwMDAwMDt0 ROl4GPNbuPwbClDxNWX0 YiK4WRR2qPBjxH1bbFlk mhfuaM9jCqc+NjggWWVh rwN1H0XvXse1WCJf aBlsLR2gzKKdMMzsZw7f vYogwRpfHT2gZJXbnsli RDRdoV7eJCVbgZTvqQrs HI2yPAOysgiks832 FrEaWPK3TPLwzXEfS6It fT2mFkDgBJMjSRKpP1Ek pZDpLSzkH265SXrgNgY6 WQBwedCuG4LlDWWd qOvuGzU3r7R5Hs9DZB2x mDM4H4WqHpe8HDHxxLzf YZ2omHKcLNdrYu3yzPln kHbkIK1fRZGtrwtd AANmrM1vYUJtjZVtiBna XM4mPAGvgchiv543PiDv CRD8QXYsjEOxB8BfgO0w WsMmHGEzLUPrR3Uy vXXhKPgqF951EVzzXbK1 ZJCwkvDdZ0PsXCIhwSnn AuU8u9N5Cm5OAIJgCJAq oFWgPtG0E8BuHeve dHI+XY80RCIfFI61vQHt jKGxr7slpHe6SeQwUQMm PJY0tEmnUYzqn6GgPQSm P75ecKTir4P5LMYp fMyjwJKvBoFehEO9zQ9r VLulfothu3qyvhnqIonv w3njmn14rW90T20mPAvj ZHRoPSIzMCUiIHZh tGzwcq3syY2kSf5+PGNv mUF2wJU0kP3aUqZoGdS3 VWeyM748CcBggTBrJvab e7hfk6eauIx1WpFq QPDjysPlhOwrOAD2o8Ha Ww20R94bBNbaPMHcOSTt PCYfIOSllMtrcs5iqX7g Ii8+IL6wu3zmqu47 tX57mIP+VOQfVGW5lEid UQuaWVFaiP9vCYkeVyI3 TMSxZcIjmV48eMMcCOju Xn6jjEricWxnZV2i LIDrpbepk777XnMrw2tu JLAhrUVmUNhiRHO2B86z u9D2DXCsSWAcYXI5xUT8 kS8dnBfhbackpGKb dDsgdmVydGljYWwtYWxp B820WFTvyYhySxGmkSHj G6jodgZHIQ8nLyyvuSW+ XCKrGPO6bKxqDAad BKJwxH9kCLXbZ4u8RoQf SaU6TOecC2HjjkA7YMSz zCEgRKNspNQPzY7yuunr e8uctliwJyOjCZZw DIa6SQj9HZNdaLujAcWk GES9UgZ7QJW9aIUcxR3f iZrxkwedbM2fGdb+RklO OjwvdGQ+PHRkIHN0 pGvpCQdnRFSogQ9zMLAs H4w0SnUeWnQ3EYopP0Cr egE5OSSggYQuNZTqjNYW jY4hzxftt1yjnobp SqGyQRHaDSa8VWo4YSGm yWuqMzQyYTQ1RqV8BIS9 sVOjzG2crNdbbipwdE4a Oyc+TVJOOjwvdGQ+ NKFrDVH8mRdwEZjxGMLf vE4qPFTjE3t6VkLfHvG3 GXfvW6XujaN4OXWcgZVq SSLhiSRRzB9fjwri o7stinrkYcJuVVNfCKh0 OCu6ECJczGpfEvXyKPC9 HxA1VVJ1kGGhiK2sbJme gxiylT2zAnj+UGF5 VEV1BU76HP73L0NvPusw dGFibGU+PHRhYmxlIHdp ZHRoPScxMDAlJyBzdHls WT8sIp3kELSxQRKk bGxh (more content not included)... [facility] Physician Orderon 02-19-2021 Physician Order [id number] [id number]:127 [facility] Vital Signs Date Time Vital Sign Value Performing Clinician Facility 09-14-2024 10: Body height 152.4 cm Dwayne Glasgow [employer] Work Phone: [facility] 09-14-2024 10: Body mass index (BMI) [Ratio] 25.97 kg/m2 Dwayne Glasgow [employer]ING [employer] DIRECT[employer] Work Phone: [facility] 09-14-2024 10: Body weight 60.33 kg Dwayne Glasgow [employer] Work Phone: [facility] 09-14-2024 10:01-0400 Diastolic blood pressure 74 mm[Hg] Dwayne Glasgow [employer] DIRECTOR Work Phone: [facility] 09-14-2024 10:01-0400 Heart rate 78 /min Dwayne Glasgow [employer] DIRECT[employer] Work Phone: [facility] 09-14-2024 10:01-0400 SaO2% (BldA) [Mass fraction] 96 % Dwayne Glasgow [employer]ANGING [employer]ER[employer] DIRECTOR Work Phone: [facility] 09-14-2024 10:01-0400 Systolic blood pressure 128 mm[Hg] Dwayne Glasgow [employer]ANGING [employer]ERAL DIRECTOR Work Phone: [facility] 06-05-2024 11:30-0500 Body mass index (BMI) [Ratio] 26.25 kg/m2 Theo Jil DO Work Phone: [facility] 06-05-2024 11:30-0500 Body weight 60.96 kg Theo Jil DO Work Phone: [facility] 06-05-2024 11:30-0500 Diastolic blood pressure 80 mm[Hg] Theo Jil DO Work Phone: [facility] 06-05-2024 11:30-0500 Systolic blood pressure 130 mm[Hg] Theo Jil DO Work Phone: [facility] 03-08-2024 08:25-0400 Body height 152.4 cm Ryan Ruiz MD Work Phone: [facility] 03-08-2024 08:25-0400 Body mass index (BMI) [Ratio] 25.58 kg/m2 Ryan Ruiz MD Work Phone: [facility] 03-08-2024 08:25-0400 Body weight 59.42 kg Ryan Ruiz MD Work Phone: [facility] 03-08-2024 08:25-0400 Diastolic blood pressure 80 mm[Hg] Ryan uRiz MD Work Phone: [facility] 03-08-2024 08:25-0400 Heart rate 62 /min Ryan Ruiz MD Work Phone: [facility] 03-08-2024 08:25-0400 SaO2% (BldA) [Mass fraction] 98 % Ryan Ruiz MD Work Phone: [facility] 03-08-2024 08:25-0400 Systolic blood pressure 130 mm[Hg] Ryan Ruiz MD Work Phone: [facility] 04-22-2023 12:20-0400 Body height 153.67 cm Broderick Solomon Other [facility] Other 04-22-2023 12:20-0400 Body mass index (BMI) [Ratio] 24.58 kg/m2 Broderick Solomon Other [facility] Other 04-22-2023 12:20-0400 Body temperature 98.3 [degF] Broderick Solomon Other [facility] Other 04-22-2023 12:20-0400 Body weight 58.06 kg Broderick Solomon Other [facility] Other 04-22-2023 12:20-0400 Respiratory rate 18 /min Broderick Solomon Other [facility] Other 04-22-2023 12:20-0400 SaO2% (BldA) [Mass fraction] 96 % Broderick Solomon Other [facility] Other Encounters Encounter Date Encounter Type Care Provider Facility Start: 11-20-2024 ambulatory [facility] Start: 09-22-2024 ambulatory [facility] Start: 09-14-2024 End: 09-14-2024 Bamboo flowsheet Dwayne Glasgow NP Work Phone: [facility] Start: 09-14-2024 End: 09-14-2024 Bamboo flowsheet Dwayne Glasgow [employer]ING [employer] DIRECT[employer] Work Phone: [facility] Start: 09-14-2024 End: 09-14-2024 ambulatory DWAYNE GLASGOW Not Available Start: 09-14-2024 End: 09-14-2024 Assay of hemosiderin, quant Dwayne Glasgow [employer]ING [employer] DIRECTOR Work Phone: [facility] Start: 09-14-2024 End: 09-14-2024 Patient encounter procedure Dwayne Glasgow [employer]ING [employer]ER[employer] DIRECTOR Work Phone: [facility] Comment on above: Medicare annual [facility] visit, subsequent (Primary Dx); ACP (advance care planning); Encounter for screening for malignant neoplasm of colon; Paroxysmal atrial fibrillation (CMS/HCC); 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/HCC); Nonrheumatic mitral valve regurgitation; Pulmonary hypertension (CMS/HCC); Nonobstructive atherosclerosis of coronary artery (CMS/HCC); Osteopenia of multiple sites; Mixed hyperlipidemia (CMS/HCC); Routine general medical examination at health care facility Start: 07-27-2024 End: 07-27-2024 ambulatory [facility] Start: 07-25-2024 ambulatory [facility] Start: 07-25-2024 Encounter for preprocedural cardiovascular examination [facility] Start: 06-13-2024 End: 06-13-2024 Bamboo Skritterheet Amberly Galvin OT Work Phone: [facility] Start: 06-13-2024 End: 06-13-2024 Bamboo flowsheet Amberly Galvin OT Work Phone: [facility] Start: 06-13-2024 End: 06-13-2024 ambulatory Amberly Galvin OT Work Phone: [facility] Comment on above: 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, init (Primary Dx); Left wrist pain Start: 06-12-2024 ambulatory [facility] Start: 06-09-2024 End: 06-09-2024 ambulatory Jeffery Doe [...] Postmenopausal state Start: 06-05-2024 End: 06-05-2024 ambulatory THEO JIL Not Available Start: 05-30-2024 End: 05-30-2024 Bamboo Skritterheet Amberly Galvin OT Work Phone: [facility] [...] of left radius, init Start: 05-24-2024 ambulatory [facility] Start: 05-23-2024 End: 05-23-2024 Bamboo flowsgirma Galvin [...] Dx); Left wrist pain Start: 05-08-2024 ambulatory [facility] Start: 04-26-2024 ambulatory [facility] Start: 03-31-2024 ambulatory [facility] Start: 03-09-2024 End: 03-09-2024 Clinisync Result Encounter [...] Not Available Start: 02-01-2024 End: 02-01-2024 ambulatory [facility]TETY [facility] Start: 01-13-2024 End: 01-13-2024 ambulatory [facility] Start: 12-10-2023 End: 12-10-2023 ambulatory [facility] Start: 12-06-2023 End: 12-06-2023 ambulatory RYAN RUIZ Not Available Start: 04-22-2023 End: 04-22-2023 ambulatory Broderick Solomon Other [facility] Other Start: 04-22-2023 Office outpatient vi sit [...] Start: 03-09-2024 ALL LIPID PROFILE (FASTING) Ryan Ruiz MD Work Phone: Start: 02-18-2024 Mammography Ryan corona MD Work Phone: Start: 08-25-2022 Dxa bone density kimberly dy 1/> sites axial skel Ryan Ruiz MD Work Phone: Plan of Treatment Date Care Activity Detail Author Start: 09-14-2025 Medicare Annual Wellness (AWV) Medicare Annual Wellness (AWV) [facility] Start: 06-07-2025 End: 06-07-2025 Patient encounter procedure 06/07/2025 9:00 AM EST Office Visit [facility] [address] [place] [address] Laura Jones PA [address] [place] [address] [place] [address] [facility] Start: 06-05-2025 Medicare Annual Wellness (AWV) Medicare Annual Wellness (AWV) [facility] Start: 02-17-2025 Screening for malign ant neoplasm of breast Mammogram [facility] Start: 09-14-2024 End: 09-14-2025 Noninvasive colorectal cancer DNA and occult blood screening [Presence] in Stool Cologuard colon cancer screening Lab Routine Encounter for screening for malignant neoplasm of colon Expected: 09/14/2024 (Approximate), Expires: 09/14/2025 [facility] Work Phone: Comment on above: Expected: 09/14/2024 (Approximate), Expires: 09/14/2025 Start: 09-06-2024 End: 09-06-2024 Patient encounter procedure 09/06/2024 8:30 AM EST Office Visit [facility] [address] [facility] [address] [place] [id number] Ryan Ruiz MD [address] [facility] [address] [place] [address] [facility] Start: 06-20-2024 End: 06-20-2024 ambulatory 06/20/2024 9:00 AM EST Treatment [facility] [address] [facility] [address] [place] [address] Amberly Galvin, OT [address] [facility] [address] [place] [address] [facility] Start: 06-16-2024 End: 06-16-2024 ambulatory 06/16/2024 1:00 PM EST Treatment [facility] [address] [facility] [address] [place] [address] Jeffery Doe, OT [address] [place] [address] [facility] Start: 06-13-2024 End: 06-13-2024 [...] PT [address] [place] [address] [place] [address] Amberly Galvin, OT [address] [place] [address] [place] [address] [facility] Start: 05-26-2024 End: 05-26-2024 ambulatory [facility] Comment on above: Arrived Start: 05-23-2024 End: 05-23-2024 ambulatory 05/23/2024 11:00 AM EST Treatment [facility] [address] [place] [address] [place] [address] Amberly Galvin, OT [address] [facility] [address] [place] [address] [facility] Start: 05-19-2024 End: 05-19-2024 ambulatory 05/19/2024 11:00 AM EST Treatment [facility] [address] [place] [address] [place] [address] Amberly Galvin, OT [address] [facility] [address] [place] [address] [facility] Start: 05-16-2024 End: 05-16-2024 ambulatory 05/16/2024 2:00 PM EST Treatment [facility] [address] [place] [address] [place] [address] Amberly Galvin, OT [address] [place] [address] [place] [address] [facility] Start: 03-08-2024 End: 03-08-2025 Lipid 1996 panel - Serum or Plasma Lipid panel Lab Routine Mixed hyperlipidemia (CMS/HCC) Expected: 03/08/2024 (Approximate), Expires: 03/08/2025 [facility] Work Phone: Comment on above: Expected: 03/08/2024 (Approximate), Expires: 03/08/2025 Start: 03-08-2024 End: 03-08-2024 Patient encounter procedure 03/08/2024 8:30 AM EDT Office Visit [facility] [address] [facility] [address] [place] [address] Ryan Ruiz MD [address] [place] [address] [place] [address] Arrived [facility] Comment on above: Arrived Start: 03-05-2024 Influenza vaccination Influenza Vacc ine (#1) [facility] Start: 03-27-2023 Screening for malign ant neoplasm of colon [facility] Start: 2017 Pneumococcal Vaccine : 65+ Years (1 of 1 - PCV) Pneumococcal Vaccine: 65+ Years (1 of 1 - PCV) [facility] Start: 1958 Pneumococcal Vaccine : 65+ Years (1 of 2 - PCV) Pneumococcal Vaccine: 65+ Years (1 of 2 - PCV) [facility] Start: 1950 Screening for malign ant neoplasm of colon [facility] THIN PREP TIS PAP AN D HR HPV DNA THIN PREP TIS PAP AND HR HPV DNA Pathology and Cytology Routine Well woman exam with routine gynecological exam Ordered: 06/05/2024 [facility] Comment on above: Ordered: 06/05/2024 Immunizations Immunization Date Immunization Notes Care Provider Henry greenberg 12-19-2016 tetanus toxoid, reduced diphtheria toxoid, and acellular pertussis vaccine, adsorbed Broderick Truxton Other [facility] Other Payers Date Payer Category Payer Medicaid [employer] MED[employer]ARE A DV[employer]AGE [id number] 2021 Medicare [employer] MEDICARE A DVANTAGE [employer] MEDICARE REPLACEMENT [id number] 2021-Present [address] [place] [address] [id number] 1959 Medicare [id number] 1952 Unknown [id number] 2.16.840.1.472669.3.579.2.593 1952 Unknown [id number] 2.16.840.1.048067.3.579.2.593 1952 Unknown [id number] 2.16.840.1.925982.3.579.2.593 1952 Unknown [id number] 2.16.840.1.298762.3.579.2.593 1952 Unknown [id number] 2.16.840.1.770812.3.579.2.593 1952 Unknown [id number] 2.16.840.1.468651.3.579.2.593 1952 Unknown [id number] 2.16.840.1.536613.3.579.2.593 1952 Unknown [id number] 2.16.840.1.915481.3.579.2.1259 1952 Unknown [id number] 2.16.840.1.466546.3.579.2.1259 1952 Unknown [id number] 2.16.840.1.850053.3.579.2.1259 1952 Unknown [id number] 2.16.840.1.463450.3.579.2.125 1952 Unknown [id number] 2.16.840.1.568736.3.579.2.1259 1952 Unknown [id number] 2.16.840.1.287966.3.579.2.1259 1952 Unknown [id number] 2.16.840.1.679592.3.579.2.1259 1952 Unknown [id number] 2.16.840.1.378468.3.579.2.1259 1952 Unknown [id number] 2.16.840.1.976485.3.579.2.1259 1952 Unknown [id number] 2.16.840.1.649353.3.579.2.125 1952 Unknown [id number] 2.16.840.1.207734.3.579.2.1259 1952 Unknown [id number] 2.16.840.1.790095.3.579.2.1259 Social History Date Type Detail Facility Unknown if ever smoked [facility] Other Start: 03-08-2024 End: 09-14-2024 Sex Assigned At [facility] Other Start: 12-31-2022 Tobacco smoking status NHIS Never smoked tobacco [facility] Start: 12-31-2022 Tobacco use and exposure Smokeless tobacco non-user [facility] Start: 03-08-2024 End: 09-14-2024 Alcoholic beverage intake Lifetime non-drinker (finding) [facility] Start: 03-08-2024 End: 09-14-2024 History of Social function [facility] Start: 1950 Sex assigned at Female [facility] Start: 12-25-2023 Gender identity Identifies as female gender (finding) [facility] NEGATED: Highlighted rowStart: NINF History of tobacco use Passive smoker [facility] Clinical Notes 04-22-2023 to 09-14-2024 Dwayne Glasgow, [employer] - 09/14/2024 10:00 AM EDTPatient Joon Galvin, OT - 06/13/2024 1:00 PM Jose Miguel Doe, OT - 06/09/2024 9:30 AM DONNA Reynoso - 06/05/2024 11:00 AM EST Note Date & Type Note Facility 09-14-2024 History of Present illness Narrative Images from the original note were not included. Subjective : Chief Complaint: Sharri Cooney is an 74 y.o. female here for an annual wellness visit. I have reviewed and reconciled the history and medication list with the patient today. Current Outpatient Medications Medication Sig Dispense Refill apixaban (Eliquis) 5 MG tablet Take 1 tablet by mouth in the morning and 1 tablet before bedtime. Calcium 600-5 MG-MCG tablet Take by mouth Cholecalciferol (Vitamin D) 10 MCG/ML liquid Take by mouth Cranberry 500 MG capsule Take by mouth lisinopril-hydroCHLOROthiazide 10-12.5 MG tablet Take 1 tablet by mouth Daily 1/2 tablet as directed Magnesium Oxide -Mg Supplement 400 MG capsule metoprolol succinate XL (Toprol-XL) 100 MG 24 hr tablet Take 100 mg by mouth Daily potassium chloride CR (Klor-Con) 10 MEQ ER tablet Take 10 mEq by mouth in the morning. sertraline (Zoloft) 50 MG tablet Take 50 mg by mouth Daily simvastatin (Zocor) 10 MG tablet Take 10 mg by mouth in the morning. No current facility-administered medications for this visit. Review of Systems Constitutional: Negative. HENT: Negative. Eyes: Negative. Respiratory: Negative. Cardiovascular: Negative. Gastrointestinal: Negative. Genitourinary: Negative. Musculoskeletal: Negative. Skin: Negative. Neurological: Negative. Psychiatric/Behavioral: Negative. Hematological: Negative. Endocrine: Negative. Allergic/Immunologic: Negative. List of current healthcare providers: Patient Care Team: Rinku Peterson MD as PCP - General (Family Medicine) Ryan Ruiz MD as PCP - tna Medicare Annual Visit Over the past 2 weeks, how often have you been bothered by any of the following problems? Little interest or pleasure in doing things: Not at all Feeling down, depressed, or hopeless: Not at all Patient Health Questionnaire-2 Score: 0 Carlson Fall Risk History of Falling, Immediate or Within 3 Months: No Secondary Diagnosis: No Ambulatory Aid: Walks without aid/bedrest/nurse assist Health Risk Assessment Form Do you need help eating, bathing, using the toilet, dressing, or getting around your home?: No Can you prepare your own meals?: Yes Can you do your own housework without help?: Yes Can you shop for groceries or clothes without help?: Yes Do you exercise for about 20 minutes 3 or more days a week?: Yes How confident are you that you can control and manage most of your health problems?: Very confident Can you mange your money, credit cards and accounts, pay bills and taxes?: Yes Cognitive Screening Three Word Registration: Apple, Watch, Carolee Clock Drawing: Normal Clock - 2 Three Word Recall: All 3 words correct - 3 Total Score (0-5 Points): 5 Pain Assessment Pain Score: 1 Advance Care Planning Do you have a living will?: Yes Do you have a medical power of ip technology transactions attorney?: Yes Who is your medical power of ip technology transactions attorney?: daughter Objective : BP 128/74 Pulse 78 Ht 5' Wt 133 lb SpO2 96% BMI 25.97 kg/m No results found. Physical Exam Vitals reviewed. Constitutional: Appearance: Normal appearance. HENT: Head: Normocephalic and atraumatic. Right Ear: Tympanic membrane, ear canal and external ear normal. Left Ear: Tympanic membrane, ear canal and external ear normal. Nose: Nose normal. Mouth/Throat: Mouth: Mucous membranes are moist. Pharynx: Oropharynx is clear. Eyes: Extraocular Movements: Extraocular movements intact. Conjunctiva/sclera: Conjunctivae normal. Pupils: Pupils are equal, round, and reactive to light. Cardiovascular: Rate and Rhythm: Normal rate and regular rhythm. Heart sounds: Normal heart sounds. Pulmonary: Effort: Pulmonary effort is normal. Breath sounds: Normal breath sounds. Abdominal: General: Abdomen is flat. Bowel sounds are normal. Palpations: Abdomen is soft. Musculoskeletal: General: Normal range of motion. Cervical back: Normal range of motion and neck supple. Skin: General: Skin is warm and dry. Neurological: General: No focal deficit present. Mental Status: She is alert and oriented to person, place, and time. Psychiatric: Mood and Affect: Mood normal. Behavior: Behavior normal. Thought Content: Thought content normal. Judgment: Judgment normal. Assessment/Plan : The following health maintenance schedule was reviewed with the patient and provided in printed form in the after visit summary: Health Maintenance Topic Date Due Pneumococcal Vaccine: 65+ Years (1 of 2 - PCV) Never done Colorectal Cancer Screening 03/27/2023 Influenza Vaccine (1) Never done Mammogram 02/17/2025 Medicare Annual Wellness (AWV) 06/05/2025 Advance Care Planning 1. Medicare annual wellness visit, subsequent 2. ACP (advance care planning) 3. Encounter for screening for malignant neoplasm of colon - Cologuard colon cancer screening; Future - Cologuard colon cancer screening 4. Paroxysmal atrial fibrillation (CMS/HCC) metoprolol succinate XL (Toprol-XL) 100 MG 24 hr tablet, apixaban (Eliquis) 5 MG tablet continue as ordered, stable. Followed per cardiology 5. 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/HCC) lisinopril-hydroCHLOROthiazide 10-12.5 MG tablet continues as ordered, bp stable. 6. Nonrheumatic mitral valve regurgitation Stable. 7. Pulmonary hypertension (CMS/HCC) Stable 8. Nonobstructive atherosclerosis of coronary artery (CMS/HCC) Stable, eliquis continues. 9. Osteopenia of multiple sites Calcium 600-5 MG-MCG tablet and Cholecalciferol (Vitamin D) continue as ordered, stable. 01/05/24 CALCIUM 8.5 - 10.1 mg/dL 9.5 10. Mixed hyperlipidemia (CMS/HCC) Simvastatin continues as ordered. 03/09/24 TRIGLYCERIDES <=150 mg/dL 52 136 R 24.8 R 140 R 19.0 Low R CHOLESTEROL <=200 mg/dL 154 4.0 R 0.6 High R 3.9 R 0.5 R HDL CHOLESTEROL 40 - 60 mg/dL 63 High 8.2 R 2.8 R 14.2 R 4.0 R Comment: > or =60 mg/dl - LOW CARDIOVASCULAR RISK <40 mg/dl - HIGH CARDIOVASCULAR RISK LDL CHOLESTEROL CALCULATED mg/dL 81.0 94 R 1.2 Orders Placed This Encounter Procedures DEXA bone density This order was created through External Result Entry Cologuard colon cancer screening Standing Status: Future Number of Occurrences: 1 Standing Expiration Date: 09/14/2025 Electronically signed by Dwayne Glasgow NP on September 14, 2024 documented in this encounter [facility] 09-14-2024 Instructions Dwayne Glasgow NP - 09/14/2024 10:00 AM EDT Cologuard requisition sent Bone density sent per [employer]IST Mammogram order sent per [employer] documented in this encounter [facility] 07-27-2024 Note [facility] Consult Note Reason for visit: Patient [...] or signs patient was recently seen in [facility] 08/2022 for palpitations. She was found [...] palpitations, lightness, dizziness, fatigue 08/2022 ECG by [facility]- appears to be sinus tach with [...] alcohol infrequently, no significant caffeine intake, no cjgl-yfa-xghyzoy decongestions Family history: Her mother of a brain aneurysm, no history of premature coronary artery disease, no history of arrhythmias Medications: Eliquis 5 mg p.o. twice daily, lisinopril 10/hydrochlorothiazide 12.5 mg daily, Toprol-XL 50 mg daily, Zocor 10 mg daily ---- 03/03/[address] Stephanie estevez?c; Afib H?PI: [...] alcohol infrequently, no significant caffeine intake, no dnlh-ybn-ljwiguj decongestions Family history: Her mother of a [...] and systolic functio (more content not included)... [facility] 06-13-2024 History of Present illness Narrative Occupational Therapy Occupational Therapy Discharge Visit Patient Name: Sharri Cooney Today's Date: 06/13/2024 Linked Episodes Type: Episode: Status: Noted: Resolved: Last update: Updated by: Occupational Therapy L wrist fx Active 05/09/2024 06/13/2024 3:13 PM Amberly [...] to 3# handweight complete. 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 Encouraged ice/ biofreeze for soreness at night. Pt verbalized understanding of all education. Treatment: Manual: STM/ DTM along the L wrist Therapeutic Exercise: light strengthening of the wrist/forearm. Therapeutic Activity: Modalities: Neuro Re-Ed: Assessment/Plan Short Term Goals: Pt will be independent with home exercise program for light strengthening and ROM at discharge. GOAL MET Drier Belt Conveyor Goals: PRWHE Pain Score < 5/50 ( IE: ) GOAL MET 3/50 PRWHE Functional Score <3/100 ( IE: 7/100 ) GOAL MET 3/100 Increase wrist ROTHMAN to at least 90% pain free at discharge. (IE: 71%) GOAL NOT MET 86.5% - progressing with HEP. Pt to increase commercial hvac service technician strength by 10# and LP by 2# pain free at discharge. ( L hand 6# LP: 2# ) GOAL MET L commercial hvac service technician 20# LP: 5#) Pt will be able [...] after 30 days. documented in this encounter [facility] 06-09-2024 History of Present illness Narrative Occupational Therapy Occupational Therapy Evaluation Visit Patient Name: Sharri Cooney Today's Date: 06/09/2024 Linked Episodes Type: Episode: Status: Noted: Resolved: Last update: Updated by: Occupational Therapy L wrist fx Active 05/09/2024 06/09/2024 9:31 AM Amberly Galvin OT Comments: Occupational Therapy Occupational Therapy Treatment Visit Patient Name: Sahrri Cooney Today's Date: 06/09/2024 Linked Episodes Type: [...] to 3# handweight complete. 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 Encouraged ice/ [...] progress per toleration. documented in this encounter [facility] 06-05-2024 History of Present illness Narrative [...] Noted Anxiety disorder, unspecified 10/28/2023 Atrial fibrillation ([facility]/HCC) 02/24/2021 Benign hypertensive heart disease without congestive heart failure ([facility]/HCC) 10/29/2023 Essential hypertension (CMS/HCC) 12/30/2022 Hypokalemia 10/29/2023 Hypomagnesemia 10/29/2023 Mass of left adrenal gland ([facility]/HCC) 12/30/2022 Mixed hyperlipidemia ([facility]/HCC) 10/29/2023 Nonrheumatic mitral valve regurgitation 12/30/2022 Pulmonary hypertension (CMS/HCC) 12/06/2023 Osteopenia of multiple sites 12/06/2023 Nonobstructive atherosclerosis of coronary artery ([facility]) 03/08/2024 Oth intartic fracture of lower end [...] nursing note reviewed. Exam conducted with a healthcare prof present. Vitals: Estimated body mass index is [...] Theo Ley DO documented in this encounter [facility] 05-30-2024 History of Present illness Narrative [...] to 3# handweight complete. 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 Encouraged ice/ [...] progress per toleration. documented in this encounter [facility] 05-26-2024 History of Present illness Narrative [...] is feeling good today. 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 Encouraged ice/ [...] progress per toleration. documented in this encounter [facility] 05-23-2024 History of Present illness Narrative Occupational Therapy Occupational Therapy Treatment Visit Patient Name: Sharri Cooney Today's Date: 05/23/2024 Linked Episodes Type: Episode: Status: Noted: Resolved: Last update: Updated by: Occupational Therapy L wrist fx Active 05/09/2024 05/23/2024 12:54 PM Amberly Galvin OT Comments: Visit number: 10/14 Timed Code Treatment minutes: 60 Total Treatment Time: 60 Subjective Pain: 2/10. I carried all my Forest totes up [...] to 2# handweight complete. 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 Trialed weightbearing [...] progress per toleration. documented in this encounter [facility] 05-19-2024 History of Present illness Narrative Occupational Therapy Occupational Therapy Treatment Visit Patient Name: Sharri Cooney Today's Date: 05/19/2024 Linked Episodes Type: Episode: Status: Noted: Resolved: Last update: Updated by: Occupational Therapy L wrist fx Active 05/09/2024 05/19/2024 11:21 AM Amberly Galvin OT Comments: Visit number: 09/13 Timed Code Treatment minutes: 60 Total Treatment Time: 60 Subjective Pain: 2/10. I have been able to do more [...] to 2# handweight complete. 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 Trialed weightbearing [...] progress per toleration. documented in this encounter [facility] 05-16-2024 History of Present illness Narrative [...] to 2# handweight complete. 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 Trialed weightbearing [...] progress per toleration. documented in this encounter [facility] 05-09-2024 History of Present illness Narrative [...] deviation: 4/5. Pronation: 4/5. Supination: 4/5. L commercial hvac service technician strength: 6# LP: 2# R commercial hvac service technician strength: 35# LP: 9# Treatment: Education: HEP [...] for light strengthening and ROM at discharge. Intermediate Goals: PRWHE Pain Score < 5/50 ( IE: 13/50) PRWHE Functional Score <3/100 ( IE: 7/100 ) Increase wrist ROTHMAN to at least 90% pain free at discharge. (IE: 71%) Pt to increase commercial hvac service technician strength by 10# and LP by 2# pain free at discharge. ( L hand 6# LP: 2# ) Pt will be able to use ;eft UE in light daily activities. Pt will benefit from skilled OT to address the above impairments for 2x/week for 4 weeks. I hereby deem this POC medically necessary. Please sign below. Date: documented in this encounter [facility] 03-08-2024 History of Present illness Narrative [...] for Routine F/U. documented in this encounter [facility] 02-01-2024 Note [facility] Consult Note [...] or signs patient was recently seen in [facility] 08/2022 for palpitations. She was found [...] palpitations, lightness, dizziness, fatigue 08/2022 ECG by [facility]- appears to be sinus tach with PACs, [...] alcohol infrequently, no significant caffeine intake, no xbei-mad-bvslehp decongestions Family history: Her mother of a brain aneurysm, no history of premature coronary artery disease, no history of arrhythmias Medications: Eliquis 5 mg p.o. twice daily, lisinopril 10/hydrochlorothiazide 12.5 mg daily, Toprol-XL 50 mg daily, Zocor 10 mg daily ---- 03/03/[address] Stephanie estevez?alyssa; Afib H?PI: 71-year-old woman with HTN was [...] alcohol infrequently, no significant caffeine intake, no xhjv-kpe-ckmkehv decongestions Family history: Her mother of a [...] Not on file (more content not included)... [facility] 02-01-2024 Note Patient here for fol low up heart cath with Dr. Peter on 01/13/2024. Says she's been feeling good. Denies chest pain, SOB, palpitations, lightheadedness/syncope, and bleeding on Eliquis. BP's from home are low at times. Review of Systems All other systems reviewed and are negative. [facility] 01-13-2024 Note Cardiovascular Labor atory Report FINAL IMPRESSIONS: Angiographically nonobstructive coronary arteries Normal global left ventricular systolic function by noninvasive imaging RECOMMENDATIONS: Aggressive cardiovascular risk factor modification Optimal medical therapy for mild coronary disease should include aspirin, moderate intensity statin therapy, plus or minus an angiotensin-converting enzyme inhibitor/receptor jimy She is to follow-up with Dr. Turner Hardign and [place] CNP in the next [...] left radial artery was obtained. A 6 Greek glide sheath was inserted without difficulty. Difficulty [...] is angiographically nonobstructive. INDICATIONS: Abnormal stress test [facility] 12-14-2023 Note New order for cardiac cath [facility] 12-01-2023 Note This report has been cancelled. [facility] 12-01-2023 Note Error [facility] 04-22-2023 Evaluation note Encounter Date Diagnosis Assessment [...] see your pcp. Take tylenol as needed. [facility] Other Evaluation note* Diagnosis Oth intartic fracture [...] artery (CMS/HCC) documented [facility] this encounter [facility] Diagnosis Medicare annual wellness visit, subsequent- Primary ACP (advance care planning) Other specified counseling Encounter for screening for malignant neoplasm of colon Paroxysmal atrial fibrillation (CMS/HCC) Atrial fibrillation 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/HCC) Benign hypertensive heart disease without heart failure Nonrheumatic mitral valve regurgitation Pulmonary hypertension (CMS/HCC) Other chronic pulmonary heart diseases Nonobstructive atherosclerosis of coronary artery (CMS/HCC) Osteopenia of multiple sites Mixed hyperlipidemia (CMS/HCC) Mixed hyperlipidemia Routine general medical examination at health care facility Routine general medical examination at a health care facility documented in this encounter [facility] Narrative - Reported* Type Description Date Medical History HTN Medical History HYPERLIPIDEMIA Medical History SHINGLES Medical History GUILLAIN-BARRE SYNDROME Medical History Afib Surgical History TUBALIGATION Surgical History EYE SURGERY Surgical History MACULAR HOLE Surgical History LUMP REMOVED FROM LEFT BREAST Surgical History bunionectomy Hospitalization History 3 CHILD BIRTHS Hospitalization History GUILLAIN-BARRE SYNDROME [facility] Other [employer] for visit Narrative* Rehabilitation - Outpatient (Routine) - Authorized Specialty Diagnoses / Procedures Referred By Nemesio cristina Referred To Contact Occupational Therapy / Physical Therapy Diagnoses Other intraarticular fracture of lower end of left radius, subsequent encounter for closed fracture with routine healing PO L Wrist Procedures CT OCCUPATIONAL THERAPY EVALUATION EVALUATION Tiffanie Villanueva MD [address] [place] [address] Phone: tel: fax: Amberly Galvin, OT [address] [place] [id number] Phone: tel:[phone] fax:[phone] Referral ID Status Reason Start Date Expiration Date V isits Requested Visits Authorized [id number] Authorized 05/09/2024 11/05/2024 99 99 [facility] for visit Narrative* Rehabilitation - Outpatient (Routine) - Closed Specialty Diagnoses / Procedures Referred By Nemesio cristina Referred To Contact Occupational Therapy / Physical Therapy Diagnoses Other intraarticular fracture of lower end of left radius, subsequent encounter for closed fracture with routine healing PO L Wrist Procedures CT OCCUPATIONAL THERAPY EVALUATION EVALUATION Tiffanie Villanueva MD [address] [place], [place] [id number] Phone: tel: fax: Amberly Galvin, OT [address] [place] [address] Phone: tel:[phone] fax:[phone] Referral ID Status Reason Start Date Expiration Date Visits Re quested Visits Authorized [id number] Closed 05/09/2024 11/05/2024 99 99 [facility] Summary Purpose Family History No Family History Records FoundNo Family History Records FoundNo Family History Records FoundNo Family History Records Found Advance Directives No Advanced Directives Records FoundNo Advanced Directives Records FoundNo Advanced Directives Records FoundNo Advanced Directives Records Found Additional Source Comments INFORMATION SOURCE (unrecogn ized section and content) DATE CREATED AUTHOR 03/13/2021 [facility] DATE CREATED AUTHOR AUTHOR'S ORGANIZ ATION 10/30/2022 [facility] DATE CREATED AUTHOR AUTHOR'S ORGANIZ ATION 09/17/2024 [facility] EPIC DATE CREATED AUTHOR AUTHOR'S ORGANIZ ATION 11/28/2024 [facility] REASON FOR VISIT (unrecogniz ed section and content) Reason Comments Well Women Visit Reason Comments Hypertension Reason Comments Medicare Annual Wellness Visit Subsequen t Care Teams (unrecognized sec tion and content) [employer] Worker Relationship Specialty Start Date End Date Rinku Peterson MD [address] [place] [address] PCP - General Family Medicine 12/31/22 [employer] Worker Relationship Specialty Start Date End Date Rinku Peterson MD [address] [place] [address] PCP - General Family Medicine 12/31/22 Ryan Ruiz MD [address] [facility] [address] [place] [address] PCP - [employer] 05/05/24 [employer] Worker Relationship Specialty Start Date End Date Rinku Peterson MD [address] [place] [address] PCP - General Family Medicine 12/31/22 Ryan Ruiz MD [address] [facility] [address] [place] [address] PCP - [employer] 05/05/24 [employer] Worker Relationship Specialty Start Date End Date Rinku Peterson MD [address] [place] [address] PCP - General Family Medicine 12/31/22 Ryan Ruiz MD [address] [facility] [address] [place] [address] PCP - [employer] 05/05/24 [employer] Worker Relationship Specialty Start Date End Date Rinku Peterson MD [address] [place] [facility] [address] PCP - General Family Medicine 12/31/22 Ryan Ruiz MD [address] [facility] [address] [place] [address] PCP - [employer] 05/05/24 [employer] Worker Relationship Specialty Start Date End Date Rinku Peterson MD [address] [place] [address] PCP - General Family Medicine 12/31/22 Ryan Ruiz MD [address] [address] PCP - [employer] 05/05/24 [employer] Worker Relationship Specialty Start Date End Date Rinku Peterson MD [address] [place] [address] PCP - General Family Medicine 12/31/22 Ryan Ruiz MD [address] [place] [address] PCP - [employer] 05/05/24 [employer] Worker Relationship Specialty Start Date End Date Rinku Peterson MD [address] [place] [facility] [address] PCP - General Family Medicine 12/31/22 Ryan Ruiz MD [address] [facility] [address] [place] [address] PCP - [employer] 05/05/24 [employer] Worker Relationship Specialty Start Date End Date Rinku Peterson MD [address] [place] [facility] [address] PCP - General Family Medicine 12/31/22 [employer] Worker Relationship Specialty Start Date End Date Rinku Peterson MD [address] [place] [facility] [address] PCP - General Family Medicine 12/31/22 [employer] Worker Relationship Specialty Start Date End Date Rinku Peterson MD [address] [place] [facility] [address] PCP - General Family Medicine 12/31/22 [employer] Worker Relationship Specialty Start Date End Date Rinku Peterson MD [address] [place] [facility] [address] PCP - General Family Medicine 12/31/22 Ryan Ruiz MD [address] [facility] [address] [place] [address] PCP - [employer] 05/05/24 Black Ash Worker Relationship Specialty Start Date End Date Rinku Peterson MD [address] [facility] [address] PCP - General Family Medicine 12/31/22 Ryan Ruiz MD [address] [facility] [address] [place] [address] PCP - [employer] 05/05/24 FOR RECORDS PERTAINING TO PATIENTS WHO [...] BE BASED ON THE PRIMARY CLINICAL RECORDS. [facility] [employer] [facility]. provides no warranty or guarantee of the accuracy or completeness of information in this document.
--- OUTSIDE RECORDS SUMMARY | 2025-01-03 20:55 | XMS_ITS | Clinical Summary ---
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 Sulfa Antibiotics Unknown Medium 07/06/2013 Other Reaction(s): Not available CYANOSIS Sulfacetamide Hives 12/31/2022 Medications lisinopril-hydro CHLOROthiazide 10-12.5 MG tablet Take 1 tablet by mouth Daily 1/2 tablet as directed 3 Active potassium chloride CR (Klor-Con) 10 MEQ ER tablet Take 10 mEq by mouth in the morning. 3 Active simvastatin (Zocor) 10 MG tablet Take 10 mg by mouth in the morning. 3 Active apixaban (Eliquis) 5 MG tablet Take 1 tablet by mouth in the morning and 1 tablet before bedtime. Active Magnesium Oxide -Mg Supplement 400 MG capsule 4 Active Calcium 600-5 MG-MCG tablet Take by mouth Ac tive Cholecalciferol (Vitamin D) 10 MCG/ML liquid Take by mouth Ac tive Cranberry 500 MG capsule Take by mouth Active metoprolol succinate XL (Toprol-XL) 100 MG 24 hr tablet Take 100 mg by mouth Daily 5 Active sertraline (Zoloft) 50 MG tabletIndication s:Anxiety disorder, unspecified type Take 1 tablet (50 mg) by mouth Daily 90 tablet 3 Active Active Problems Problem Noted Date Diagnosed Date Oth intartic fracture of lower end of left radiu s, init 05/09/2024 Left wrist pain 05/09/2024 Nonobstructive atherosclerosis of coronary arter y 03/08/2024 Pulmonary hypertension 12/06/2023 Osteopenia of multiple sites 12/06/2023 Benign hypertensive heart di sease without congestive heart failure 10/29/2023 Hypokalemia 10/29/2023 Hypomagnesemia 10/29/2023 Mixed hyperlipidemia 10/29/2023 Anxiety disorder, unspecified 10/28/2023 Essential hypertension 12/30/2022 Overview (12/03/2023): Last Assessment & Plan: - elevated today, she states this normally low - we will have her check her blood pressure 2-3 times a day for 1 week and send clinic the readings - continue Toprol-XL 50 mg daily, Zocor 10 mg daily, lisinopril- hydrochlorothiazide 10-12.5 mg daily Mass of left adrenal gland 12/30/2022 Nonrheumatic mitral valve regurgitation 12/31/19 Overview (12/03/2023): Last Assessment & Plan: - history of mild regurgitation from echo 2020 - we will repeat echocardiogram to assess valvular regurgitation and LA size Atrial fibrillation 02/24/2021 Overview (12/03/2023): Last Assessment & Plan: -History of paroxysmal A-fib, recent ER visit does not look like she had A-fib - continue Eliquis 5 mg twice daily - [id number] at least 3 for age, gender, hypertension - continue metoprolol XL 50 mg daily - in the past she was on amiodarone for short-term, converted chemically and then amiodarone was discontinued - recent ER visit she had elevated TSH Encounters Date Type Department Care Team Description 10/19/2024 Refill [facility] [address] [place] [address] Nayeli Davison LPN Anxiety disorder, unspecified type 10/05/2024 Telephone [facility] [address] [facility] [address] [place] [address] Adelina Chamberlain, PASSENGER BARGE MASTER from Last 3 Months Immunizations Immunization Administration Dates Next Due Tdap 12/19/2016 Family History Medical History Relation Name Comments Cancer Father Aneurysm Mother Hypertension Mother Relation Name Status Comments Father Mother Social History Tobacco Use Types Packs/Day Years [...] AM EDT Sexual Orientation Not on file Last Filed Vital Signs Vital Sign Reading Time Taken Comments Blood Pressure 128/74 09/14/2024 10:01 AM EDT Pulse 78 09/14/2024 10:01 AM EDT Temperature - - Respiratory Rate 15 12/06/2023 1:49 PM EDT Oxygen Saturation 96% 09/14/2024 10:01 AM EDT Inhaled Oxygen Concentration - - Weight 60.3 kg (133 lb) 09/14/2024 10:01 AM EDT Height 152.4 cm (5') 09/14/2024 10:01 AM EDT Body Mass Index 25.97 09/14/2024 10:01 AM EDT Plan of Treatment Upcoming Encounters Date Type Department Care Team (Late st Contact Info) Description 06/07/2025 9:00 AM EST Office Visit [facility] OB [address] [place] [address] Lauar Jones PA [address] [place] [address] Health Maintenance Due Date Last Done Comments CT Colonography 1950 Colonoscopy 1950 FIT 1950 FOBT 1950 Sigmoidoscopy 1950 Pneumococcal Vaccine: 65+ Ye ars (1 of 2 - PCV) 09/03/1971 Mammogram 02/17/2025 02/18/2024, 07/0 01/2017, 01/21/2015 Influenza Vaccine (#1) 2025 Medicare Annual Wellness (AWV) 09/14/2025 0 09/14/2024, 06/05/2024, 06/01/2023 Colorectal Cancer Screening 09/27/2027 FIT-DNA 09/27/2027 09/26/2024, 03/27/2020 Procedures Procedure Name Priority Date/Time Associated Diagnosis Comments LAB COLOGUARD COLON CANCER SCREEN Routine 09/26/2024 9:00 AM EDT Encounter for screening for malignant neoplasm of colon MM TOMOSYNTHESIS SCREENING BI 02/18/2024 9:56 AM EDT from Last 3 Months or Most Recently Relevant to Health Maintenance Results * Cologuard?? colon cancer screening (09/26/2024 9:00 AM EDT) NONINV COLON CA DNA+OCC BLD SCRN STL-IMP Negative Negative 09/29/2024 12:41 PM EDT [employer] [facility] (CLIA #:[id number]) Comment: NEGATIVE TEST RESULT. A negative Cologuard result indicates a low likelihood that a colorectal cancer (CRC) or advanced adenoma (adenomatous polyps with more advanced pre-malignant features) is present. The chance that a person with a negative Cologuard test has a colorectal cancer is less than 1 in 1500 (negative predictive value >99.9%) or has an advanced adenoma is less than 5.3% (negative predictive value 94.7%). These data are based on a prospective cross-sectional study of 10,000 individuals at average risk for colorectal cancer who were screened with both Cologuard and colonoscopy. (James Moore al, N Engl J Med 2014;370(14):0034-3298) The normal value (reference range) for this assay is negative. COLOGUARD RE-SCREENING RECOMMENDATION: Periodic colorectal cancer screening is an important part of preventive healthcare for asymptomatic individuals at average risk for colorectal cancer. Following a negative Cologuard result, the [place] [employer] Society and U.S. Multi-Society Task Force screening guidelines recommend a Cologuard re-screening interval of 3 years. References: [place] [employer] Guideline for Colorectal Cancer Screening: https://www.cancer.org/cancer/qqvoy-pmziix-divupv/zwhagliwq-skowfxmsg-durihko/ac s-rec ommendations.html.; Alvaro DK, Jakub CR, Osmani AbbasiK, Colorectal Cancer Screening: Recommendations for Physicians and Patients from the U.S. Multi-Society Task Force on Colorectal Cancer Screening , Am J Gastroenterology 2017; 112:8024-4495. TEST DESCRIPTION: Composite algorithmic analysis of stool DNA-biomarkers with hemoglobin immunoassay. Quantitative values of individual biomarkers are not reportable and are not associated with individual biomarker result reference ranges. Cologuard is intended for colorectal cancer screening of adults of either sex, 45 years or older, who are at average-risk for colorectal cancer (CRC). Cologuard has been approved for use by the U.S. FDA. The performance of Cologuard was established in a cross sectional study of average-risk adults aged 50-84. Cologuard performance in patients ages 45 to 49 years was estimated by sub-group analysis of near-age groups. Colonoscopies performed for a positive result may find as the most clinically significant lesion: colorectal cancer [4.0%], advanced adenoma (including sessile serrated polyps greater than or equal to 1cm diameter) [20%] or non- advanced adenoma [31%]; or no colorectal neoplasia [45%]. These estimates are derived from a prospective cross-sectional screening study of 10,000 individuals at average risk for colorectal cancer who were screened with both Cologuard and colonoscopy. (James Moore al, N Engl J Med 2014;370(14):3503-2608.) Cologuard may produce a false negative or false positive result (no colorectal cancer or precancerous polyp present at colonoscopy follow up). A negative Cologuard test result does not guarantee the absence of CRC or advanced adenoma (pre-cancer). The current Cologuard screening interval is every 3 years. ([place] [employer] Society and U.S. Multi-Society Task Force). Cologuard performance data in a 10,000 patient pivotal study using colonoscopy as the reference method can be accessed at the following location: www.[place].Moviecom.tv/results. Additional description of the Cologuard test process, warnings and precautions can be found at www.cologuard.com. Stool specimen (specimen) 09/26/2024 9:00 AM EDT 09/27/2024 12:42 PM EDT us Adelina Chamberlain PASSENGER BARGE MASTER LAB [facility]LEC[facility] DIAGNOSTICS ORDERA BLES Final Result .[facility] (CLIA #:[id number]) [address] [address], [employer] (CLIA #:[id number]) [address] [place] [address] * MM TOMOSYNTHESIS SCREENING BI (02/18/2024 9:56 AM EDT) Anatomical Region Laterality Modality Other 02/18/2024 9:56 AM EDT Narrative 02/18/2024 9:57 [place] [address] Mammography Report Signed Patient: SHARRI COONEY MR#: [id number] : 1950 Acct:[id number] Age/Sex: 73 / F ADM Date: 02/17/24 Loc: MAMMO Attending Dr: Theo Ley D.O. Ordering Physician: Theo Ley D.O. Results: Date of Service: 02/17/24 Follow Up: Procedure(s): MM tomosynthesis screening BI Accession Number(s): [id number] cc: RYAN RUIZ ; Theo Ley D.O. Patient Name: SHARRI COONEY MR#: [id number] : 1950 Exam Date: 02/17/2024 Ordering Doctor: [...] prostate cancer at age 60. LOCATION: [facility] BREAST COMPOSITION: The breasts are heterogeneously [...] Donahue M.D. Signed By: 02/18/24 0957 DD/ 0956 TD/TT: Tele Marketing Executive: Procedure Note Radiology, Radiologist, MD - 02/18/2024 [place] [address] Mammography Report Signed Patient: SHARRI COONEY LMR#: [id number] : 3Acct:[id number] Age/Sex: 73 / FADM Date: 02/17/24 Loc: MAMMO Attending Dr: Theo Ley D.O. Ordering Physician: Theo Ley D.O.Results: Date of Service: 02/17/24Follow Up: Procedure(s): MM tomosynthesis screening BI Accession Number(s): [id number] cc: RYAN RUIZ ; Theo Ley D.O. Patient Name: SHARRI COONEY MR#: [id number] : 1950 Exam Date: 02/17/2024 Ordering Doctor: DR Theo Ley . RADIOLOGY REPORT PROCEDURE: MM TOMOSYNTHESIS SCREENING BI COMPARISON: MM TOMOSYNTHESIS SCREENING BI, 02/10/2023. MG MAMM [id number] JASMEET CAD, 02/09/2022. MG MAMM SCREEN 3D JASMEET CAD, 02/03/2021. MG MAMM SCREENBIL W CAD, 01/21/2015. INDICATIONS: Screening Calculator Name NCI Breast Cancer Risk Assessment Tool 5 Year Breast Cancer Risk 1.70% Lifetime Breast Cancer Risk 4.70% Personal Breast Cancer No Personal Ovarian Cancer No Treatments None Family Cancers Father with prostate cancer at age 58. LOCATION: [facility] BREAST COMPOSITION: The breasts are heterogeneously [...] 09:56 Dictated By: Leander Donahue M.D. Signed By:02/18/24 0957 DD/ 0956 TD/TT: Tele Marketing Executive: Generic External Data Provider [facility] Final Result from Last 3 Months or Most Recently Relevant to Health Maintenance Insurance [employer] MEDICARE ADVANTAGE Care Teams Service Desk Team Lead Relationship Specialty Start Date End Date Ron Peterson MD PCP - General Family Medicine 12/31/22 Ryan Ruiz MD [address] [place] [id number] PCP - [employer] 05/05/24
--- OUTSIDE RECORDS SUMMARY | 2025-01-03 20:55 | XMS_ITS | Patient Health Record ---
Author Organization [facility] Address [address] [place], [place] [address] Care Team Providers Care Signal System Testing Maintainer Name Role Phone Ab Catiecorycassandra Unavailable [phone] Allergies Allergen (clinical drug ingredient) Drug/Non Drug Allergy documented on EMR Reaction Allergy Type Onset Date Status Substance with sulfonamide structure and antibacterial mechanism of action (substance) Sulfa Antibiotics Unknown Drug Allergy Active Reason For Referral No Information Medications Medication SIG (Take, Route, Frequency, Duration) Notes Start Date End Date Status Hair Skin & Nails Advanced - 1 tablet Orally Once a day Active Vitamin C 100 MG 1 tablet Orally Once a day Active Lisinopril-hydroCHLOROthiaz eli 10-12.5 MG TAKE 1 TABLET BY MOUTH ONCE DAILY Oral for 90 Days Active Calcium 600 MG 1 tablet with meals Orally Twice a day Active Vitamin D 10 MCG/ML as directed Orally Active Cranberry 500 MG 1 capsule Orally Onc e a day Active Potassium Chloride ER 10 MEQ TAKE 1 TABLET BY MOUTH ONCE DAILY Oral for 90 Days Active Eliquis 5 MG 1 tablet Orally Twic e a day for 30 days Active Simvastatin 10 MG TAKE 1 TABLET BY MISBAH TH ONCE DAILY Oral for 90 Days Active Metoprolol Succinate ER 50 MG TAKE 1 TABLET BY MOUTH ONCE DAILY Oral for 90 Days Active Social History Tobacco Use: Social History Observation Description Date Details (start date - stop date) Never Smoker NA - NA Sex Assigned At : Social History Observation Description Sex Assigned At Female Household Question Answer Notes Number of adults in household: 2 Tobacco Use/Smoking Question Answer Notes Tobacco use: nonsmoker patient enter ed data CAGE-AID Questionnaire (2018 Edition) Question Answer Notes Have you ever felt that you ought to cut down on your drinking or drug use? No patient entered data Have people annoyed you by c riticizing your drinking or drug use? No Have you ever felt bad or gu ilty about your drinking or drug use? No patient entered data Have you ever had a drink or used drugs first thing in the morning to steady your nerves or to get rid of a hangover? No patient entered data CAGE-AID Score 0 Interpretation Negative PRAPARE Question Answer Notes Date Completed/Updated: 05/30/2023 kimberly nt entered data What is your current housing situation? I have housing patient entered data Are you worried about losing your housing? No patient entered data What is the highest level of school that you have finished? High school diploma or GED patient entered data What is your current work situation? Otherwise unemployed but not seeking work (ex. 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 Check all that apply I do not have problems meeting my needs Has lack of transportation k ept you from medical appointments, meetings, work or from getting things needed for daily living? No How often do you see or talk to people that you care about and feel close to? (For example: talking to friends on the phone, visiting friends or family, going to mormonism or club meetings) More than 5 times a week patient entered data How stressed are you? Stress is when someone feels tense, nervous, anxious, or can't sleep at night because their mind is troubled A little bit patient entered data In the past year have you sp ent more than 2 nights in a row in a custodial, skilled nursing, halfway center, or juvenile correctional facility? No patient entered data Are you a refugee? No patient en tered data What country are you from? [place] gerry omer entered data Do you feel physically and emotionally safe where you currently live? Yes patient entered data In the past year, have you b een afraid of your partner or ex-partner? 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) Active confirmed Problem Pain in female genitalia on intercourse (82581247) Dyspareunia in female (N94.10) Active confirmed Plan Of Treatment No Information Insurance Providers Payer Name Payer Address Payer Phone Subscriber Number Group Number Insured Name Patient Relationship to Insured Coverage Start Date Coverage End Date A[employer] Medicare [address] [place] [address] [id number] Sharri Dickson Self - patient is the insured 2 Medicare NGS PPS [address] [place], [place] [id number] Sharri Dickson Self - patient is the insured 0 0 Medical (General) History Medical History History ICD Code A Fib after bunion surgery Surgical History Surgery Date(Month/Year) Tubal eye surgery bunion lump removed in left breast
--- OUTSIDE RECORDS SUMMARY | 2025-01-03 20:55 | XMS_ITS | Encounter Summary ---
Author Organization [facility] Address [address] [facility] [place] [address] Care Team Providers Care Sql Programmer Analyst Name Role Phone Ron Peterson MD Primary Care Provider [phone] Tita Ruiz MD Unavailable [phone] Encounter Details Date Type Department Care Team (Late st Contact Info) Description 06/06/2024 Clinisync Result Encounter [facility] External Department Unsolicited [...] OB [address] [place] [address] Laura Jones PA [address] [place] [address] documented as of this encounter Procedures Procedure Name Priority Date/Time Associated Diagnosis Comments XR WRIST LT MIN 3 V 06/06/2024 6 :22 AM EST documented in this encounter Results * XR WRIST LT MIN 3 V (06/06/2024 6:22 AM EST) Anatomical Region Laterality Modality Radiographic Jacquelin ging 06/06/2024 6:22 AM EST Narrative 06/06/2024 6:24 AM EST [address] [address] XRay Report Signed Patient: MADAN COONEY MR#: [id number] : 1950 Acct:[id number] Age/Sex: 73 / F ADM Date: 06/05/24 Loc: EC Attending Dr: Tiffanie Villanueva M.D. Ordering Physician: Tiffanie Villanueva M.D. Date of Service: 06/05/24 Procedure(s): XR wrist LT min 3V Accession Number(s): [id number] cc: TITA RUIZ ; Tiffanie Villanueva M.D. The [address] [address] Patient Name: MADAN COONEY MRN: [facility]:[id number] date: 1950 Sex: F Assigned Patient Location: Current Patient Location: Accession/Order Number: [id number] Exam Date: 06/05/2024 08:05 Report Date: 06/06/2024 06:22 At the request of: TIFFANIE VILLANUEVA Procedure: XR wrist LT min 3V PROCEDURE: XR wrist LT min 3V HISTORY: LEFT WRIST PAIN COMPARISON: XR wrist left 05/08/2024 FINDINGS: BONES:Stable alignment and decrease in density of prior distal radius fracture. Stable degenerative changes of the carpal joints and radiocarpal joint. SOFT TISSUES:Soft tissue swelling surrounding the wrist. EFFUSION:None visible. OTHER: Negative. XR/XR wrist LT min 3V IMPRESSION: 1. Stable alignment and ongoing bone healing of distal radius fracture. Electronically authenticated by: TIFFANIE DONAHUE Date: 06/06/2024 06:22 Dictated By: Tiffanie Donahue M.D. Signed By: 06/06/24623 DD/ 1 TD/TT: Process Inspector: Procedure Note Radiology, Radiologist, MD - 06/06/2024 [place] [id number] XRay Report Signed Patient: MADAN COONEY LMR#: [id number] : 1950cct:[id number] Age/Sex: 73 / FADM Date: 06/05/24 Loc: EC Attending Dr: Tiffanie Villanueva M.D. Ordering Physician: Tiffanie Villanueva M.D. Date of Service: 06/05/24 Procedure(s): XR wrist LT min 3V Accession Number(s): [id number] cc: TITA RUIZ ; Tiffanie Villanueva M.D. The [place] [address] Patient Name: MADAN COONEY MRN: [id number] date: 1950 Sex: F Assigned Patient Location: Current Patient Location: Accession/Order Number: [id number] Exam Date: 06/05/2024 08:05 Report Date: 06/06/2024 06:22 At the request of: TIFFANIE VILLANUEVA Procedure: XR wrist LT min 3V PROCEDURE: XR wrist LT min 3V HISTORY: LEFT WRIST PAIN COMPARISON: XR wrist left 05/08/2024 FINDINGS: BONES:Stable alignment and decrease in density of prior distal radius fracture. Stable degenerative changes of the carpal joints and radiocarpal joint. SOFT TISSUES:Soft tissue swelling surrounding the wrist. EFFUSION:None visible. OTHER: Negative. XR/XR wrist LT min 3V IMPRESSION: 1. Stable alignment and ongoing bone healing of distal radius fracture. Electronically authenticated by: TIFFANIE DONAHUE Date: 06/06/2024 06:22 Dictated By: Tiffanie Donahue M.D. Signed By:06/06/24623 DD/ 1 TD/TT: Process Inspector: us Generic External Data Provider IMG XR PROCEDURES Final Result documented in this encounter Visit Diagnoses Not on filedocumented in this encounter Care Teams Sql Programmer Analyst Relationship Specialty Start Date End Date Ron Peterson MD PCP - General Family Medicine 12/31/22 Tita Ruiz MD [address] [place] [address] PCP - Aetpati 05/05/24 documented as of this encounter
--- OUTSIDE RECORDS SUMMARY | 2025-01-03 20:55 | XMS_ITS | Encounter Summary ---
Author Organization [facility] Address [address] [facility] [place] [address] Care Team Providers Care Beef Cattle Specialist Name Role Phone Ron Peterson MD Primary Care Provider [phone] Ryan Ruiz MD Unavailable [phone] Encounter Details Date Type Department Care Team (Late st Contact Info) Description 06/15/2024 Orders Only [facility] OB [address] [place] [address] Mervat Mary LPN [address] [facility] [address] [place] [address] Social History Tobacco Use Types Packs/Day Years [...] 06/07/2025 9:00 AM EST Office Visit [facility] OB [address] [place] [address] Laura Jones PA [address] [place], [facility] documented as of this encounter Procedures Procedure Name Priority Date/Time Associated Diagnosis Comments PAP SMEAR Routine 06/05/2024 12:00 AM EST documented in this encounter Results * Pap Smear (06/05/2024 12:00 AM EST) Swab Cervical swab / Unknown Jil Nurse [facility] Ob LAB CYTOLOGY ORDERABLES Final Result EXTERNAL LAB documented in this encounter Visit Diagnoses Not on filedocumented in this encounter Care Teams Beef Cattle Specialist Relationship Specialty Start Date End Date Ron Peterson MD PCP - General Family Medicine 12/31/22 Ryan Ruiz MD [address] [place] [address] PCP - [employer] 05/05/24 documented as of this encounter
--- NOTE | 2025-01-03 20:58 | CT_ITS ---
The [address] [address] Patient Name: MADAN COONEY MRN: [id number] date: 1950 Sex: F Assigned Patient Location: ER Current Patient Location: ER Accession/Order Number: [id number] Exam Date: 01/03/2025 22:21 Report Date: 01/03/2025 22:23 At the request of: CARLEE ROCHA Procedure: CT head/brain wo con Unenhanced head CT TECHNIQUE: Contiguous axial imaging of the head. The CT exam was performed using one or more the following dose reduction techniques: Automated exposure control, adjustment of the MA and/or Kv according to patient size, or use of the iterative reconstruction technique. COMPARISON: None HISTORY: Fell. Left eye bruising. VENTRICLES: Within normal limits ATROPHY: None BRAIN PARENCHYMA: Adequate wood-white matter differentiation identified. HEMORRHAGE: None HERNIATION: No mass effect or herniation INFARCTION: No recent vascular distribution infarction is seen. EXTRA-AXIAL FLUID COLLECTIONS None MIDBRAIN: Unremarkable DYANA: Unremarkable MEDULLA: Unremarkable SINUSES: Unremarkable ORBITS: Grossly unremarkable MASTOIDS: Unremarkable BONY STRUCTURES Intact ADDITIONAL FINDINGS: Left periorbital soft tissue swelling CT/CT head/brain wo con IMPRESSION: No acute intracranial findings. Impression dictated by: Yung Scott M.D. 01/03/2025 10:23 PM Dictation Location: [place] [address] Electronically authenticated by: [id number] Y Date: 01/03/2025 22:23
[2025-01-03 21:04] VITALS: BP 151/80
[2025-01-03] MEDS: ACETAMINOPHEN 325 MG TABLET 650 MG PO (21:26)
--- NOTE | 2025-01-03 21:27 | XR_ITS ---
[place] [address] Patient Name: MADAN COONEY MRN: [id number] date: 1950 Sex: F Assigned Patient Location: ER Current Patient Location: Accession/Order Number: [id number] Exam Date: 01/03/2025 22:28 Report Date: 01/03/2025 22:29 At the request of: CARLEE ROCHA Procedure: XR wrist LT min 3V 3 views left wrist plain film COMPARISON: 06/05/2024 HISTORY: Fell injuring left wrist history of left wrist fracture ACUTE FINDINGS: None DEGENERATIVE CHANGE: Extensive degeneration. Ulnar plus variance. Impaction changes of the lunate and radius redemonstrated. Similar finding. SOFT TISSUE FINDINGS: Unremarkable JOINT EFFUSION: None POSTOP CHANGES: None BONE MINERALIZATION: Adequate XR/XR wrist LT min 3V IMPRESSION: No acute displaced fracture. Impression dictated by: Yung Scott M.D. 01/03/2025 10:29 PM Dictation Location: [place] [address] Electronically authenticated by: [id number] Y Date: 01/03/2025 22:29
--- NOTE | 2025-01-03 22:44 | ED.FALL1 ---
HPI HPI - Fall General Chief Complaint: Fall Stated Complaint: FALL Time Seen by Provider: 01/03/25 20:44 Source: patient Mode of arrival: walk-in Limitations: no limitations History of Present Illness HPI Narrative: cc - fall Patient was outside watering her plants when she tripped over the hose and her foot struck a nearby block and she fell forward, using her outstretched left arm to break her fall. She did hit the left side of her Head:, Lateral to the left eye, on the ground. No loss of consciousness. She complains of pain at the left wrist - which she previously broke -but denies pain elsewhere. She apparently also landed onto her left hip but denies pain there. She denies any headache at this time. No visual change, nausea or vomiting. She does take Eliquis daily. No neck or back pain. No other extremity injuries. Related Data Home Medications ?Medication ?Instructions ?Recorded ?Confirmed apixaban 5 mg tablet (Eliquis) 5 mg PO BID 10/26/23 01/03/25 ascorbic acid (vitamin C) 500 mg 500 mg PO DAILY 10/26/23 03/24/24 tablet (Vitamin C) calcium 600 mg (as 1 cap PO BID 10/26/23 03/24/24 carbonate)-vitamin D3 5 mcg (200 unit) capsule (Calcium 600 + D(3)) lisinopril 10 1 tab PO DAILY 10/26/23 03/24/24 mg-hydrochlorothiazide 12.5 mg tablet potassium chloride 10 mEq 20 meq PO DAILY 10/26/23 03/24/24 tablet,extended release simvastatin 10 mg tablet 10 mg PO DAILY 10/26/23 03/24/24 metoprolol succinate 100 mg 100 mg PO DAILY 03/24/24 03/24/24 tablet,extended release 24 hr sertraline 50 mg tablet 50 mg PO DAILY 03/24/24 03/24/24 Allergies Allergy/AdvReac Type Severity Reaction Status Date / Time ciprofloxacin (From Cipro) Allergy Severe Unknown Verified 01/03/25 20:50 levofloxacin (From Levaquin) Allergy Severe Joint Pain Verified 01/03/25 20:50 Sulfa (Sulfonamide Allergy Flushing Verified 01/03/25 20:50 Antibiotics) Opioid HPI Opioid Management Most Recent Pain and Opioid Data: Last Pain Scale 5 09/20/24, 12:03 PFSH PFSH Social History Little interest or pleasure in doing things: not at all Feeling down, depressed, or hopeless: not at all Exam Narrative Exam Narrative: Nurses note and vital signs reviewed and patient is not hypoxic. afebrile General: The patient appears well and in no apparent distress. Patient is resting comfortably on cart. GCS = 15. Skin: Warm, dry, no pallor noted. Head: Soft tissue tenderness and small amount of ecchymosis developing on the left side of the face just lateral to the left eye and anterior to the hairline. No palpable fracture. The remainder of the face and scalp are normocephalic, atraumatic Neck: Supple, trachea mid-line, no tenderness, no lymphadenopathy. Full ROM and no cervical spinal tenderness. The patient has no step-offs or crepitus noted Eyes: PERRLA, EOMI ENT: TM's clear, no hemotympanum detected, no blood in posterior oropharynx Cardiovascular: Regular Rate and Rhythm Respiratory: Patient is in no distress, no accessory muscle use, lungs are clear to auscultation, no wheezing, rales or rhonchi Back: No thoracic vertebral or lumbar vertebral tenderness to palpation. Musculoskeletal: She has no bony tenderness on palpation of the left forearm, left wrist, left hand and fingers of the left hand. No additional sign of long bone fracture - no pelvis, right hip or left hip tenderness. Pulses at femoral, DP, PT, and popiteal were 2+ bilaterally. Moves all four extremities in all modalities with 5/5 strength. Neurological: A&O x4, normal equal loss control consultant strength, normal finger to nose, normal speech, normal coordination, normal motor, normal sensory. Psychiatric: Cooperative Constitutional Vital Signs, click to edit/add: Last Vital Signs Temp 98.1 F 01/03/25 20:43 Pulse 89 01/03/25 20:43 Resp 18 01/03/25 20:43 BP 151/80 H 01/03/25 21:04 Pulse Ox 94 L 01/03/25 20:43 O2 Del Method Room Air 01/03/25 20:43 Course Vital Signs Vital signs: Vital Signs Temperature 98.1 F 01/03/25 20:43 Pulse Rate 89 01/03/25 20:43 Respiratory Rate 18 01/03/25 20:43 Pulse Oximetry 94 L 01/03/25 20:43 Oxygen Delivery Method Room Air 01/03/25 20:43 Temperature 98.1 F 01/03/25 20:43 Pulse Rate 89 01/03/25 20:43 Respiratory Rate 18 01/03/25 20:43 Blood Pressure 151/80 H 01/03/25 21:04 Pulse Oximetry 94 L 01/03/25 20:43 Oxygen Delivery Method Room Air 01/03/25 20:43 MDM - Fall MDM Narrative Medical decision making narrative: Due to being on Eliquis, the patient was sent for CT scanning of the head/brain to rule out ICH. She was very concerned about her left wrist and therefore x-rays of the left wrist were also obtained. She was given Tylenol for pain. Radiographic imaging did not reveal any acute worrisome pathology -the patient was informed of these negative results, given reassurance and discharged home. I asked the emergency department nurse to apply an osei bandage to the patient's left wrist. She was instructed to take Tylenol as needed for pain. Return to the ED for any worrisome conditions Imaging Data xr wrist, ct head: Radiologist's impression: ITS Impressions Head CT 01/03/25 20:58 IMPRESSION: No acute intracranial findings. Impression dictated by: Yung Scott M.D. 01/03/2025 10:23 PM Dictation Location: [facility] Electronically authenticated by: [id number] Y Date: 01/03/2025 22:23 Wrist X-Ray 01/03/25 21:27 IMPRESSION: No acute displaced fracture. Impression dictated by: Yung Scott M.D. 01/03/2025 10:29 PM Dictation Location: [facility] Electronically authenticated by: [id number] Y Date: 01/03/2025 22:29 Discharge Plan Discharge Chief Complaint: Fall Clinical Impression: Closed head injury, Left wrist sprain, Contusion of hip, left Patient Disposition: Home, Self-Care Time of Disposition Decision: 22:48 Prescriptions / Home Meds: No Action metoprolol succinate 100 mg tablet extended release 24 hr 100 mg PO DAILY sertraline 50 mg tablet 50 mg PO DAILY simvastatin 10 mg tablet 10 mg PO DAILY lisinopril-hydrochlorothiazide 10-12.5 mg tablet 1 tab PO DAILY Eliquis 5 mg tablet 5 mg PO BID potassium chloride 10 mEq tablet extended release 20 meq PO DAILY Calcium 600 + D(3) 600 mg-5 mcg (200 unit) capsule 1 cap PO BID ascorbic acid (vitamin C) [Vitamin C] 500 mg tablet 500 mg PO DAILY Print Language: Panamanian Instructions: Head Injury (ED), Contusion in Adults (ED), Wrist Sprain (ED) Referrals: TITA SHELDON [Primary Care Provider, Internal Medicine] - 1 week
== END 2025-01-03 22:59 | disposition home or self-care (01) ==
PROVIDERS: Emergency Provider Emergency Medicine; PCP Internal Medicine
DX: S09.8XXA Other specified injuries of head, initial encounter (principal); S63.502A Unspecified sprain of left wrist, initial encounter; S70.02XA Contusion of left hip, initial encounter; Z79.01 Long term (current) use of anticoagulants; W01.0XXA Fall on same level from slipping, tripping and stumbling without subsequent striking against object, initial encounter; Y92.096 Garden or yard of other non-institutional residence as the place of occurrence of the external cause
CPT/HCPCS: 70450; 73110; 99284

== ENCOUNTER 2025-02-19 09:50 | Outpatient (OUT) | payer MEDICARE, SELFPAY ==
--- OUTSIDE RECORDS SUMMARY | 2025-02-19 09:52 | XMS_ITS | Encounter Summary ---
Author Organization [facility] Address [address] [facility] [place] [address] Care Team Providers Care Service Manager Name Role Phone Ron Peterson MD Primary Care Provider [phone] Tita Ruiz MD Unavailable [phone] Encounter Details Date Type Department Care [...] 06/07/2025 9:00 AM EST Office Visit [facility] P[facility]aj OBNILESH [address] [place] [phone] Laura Jones PA [address] [facility] [address] [place], [facility]11 documented as of this encounter Procedures Procedure Name Priority Date/Time Associated Diagnosis Comments XR WRIST LT MIN 3 V 04/04/2024 5 :44 AM EDT documented in this encounter Results * XR WRIST LT MIN 3 V (04/04/2024 5:44 AM EDT) Anatomical Region Laterality Modality Radiographic Jacquelin ging 04/04/2024 5:44 AM EDT Narrative 04/04/2024 5:46 AM EDT [address] [address] XRay Report Signed Patient: MADAN COONEY MR#: [id number] : 1950 Acct:[id number] Age/Sex: 73 / F ADM Date: 04/03/24 Loc: EC Attending Dr: Tiffanie Villanueva M.D. Ordering Physician: Tiffanie Villanueva M.D. Date of Service: 04/03/24 Procedure(s): XR wrist LT min 3V Accession Number(s): [id number] cc: TITA RUIZ ; Tiffanie Villanueva M.D. [address] [address] Patient Name: MADAN COONEY MRN: [facility]:[id number] date: 1950 Sex: F Assigned Patient Location: Current Patient Location: Accession/Order Number: [id number] Exam Date: 04/03/2024 09:54 Report Date: 04/04/2024 [...] Tiffanie Donahue M.D. Signed By: 04/04/2446 DD/ TD/TT: Social Media Content Specialist: Procedure Note Radiology, Radiologist, MD - 04/04/[address] [address] XRay Report Signed Patient: MADAN COONEY LMR#: [id number] : 1950cct:[id number] Age/Sex: 73 / FADM Date: 04/03/24 Loc: EC Attending Dr: Tiffanie Villanueva M.D. Ordering Physician: Tiffanie Villanueva M.D. Date of Service: 04/03/24 Procedure(s): XR wrist LT min 3V Accession Number(s): [id number] cc: TITA RUIZ ; Tiffanie Villanueva M.D. The [place] [id number] Patient Name: MADAN COONEY MRN: [id number] date: 1950 Sex: F Assigned Patient Location: Current Patient Location: Accession/Order Number: [id number] Exam Date: 04/03/2024 09:54 Report Date: 04/04/2024 [...] By: Tiffanie Donahue M.D. Signed By:04/04/2446 DD/ TD/TT: Social Media Content Specialist: us Generic External Data Provider IMG XR PROCEDURES Final Result documented in this encounter Visit Diagnoses Not on filedocumented in this encounter Care Teams Service Manager Relationship Specialty Start Date End Date Ron Peterson MD PCP - General Family Medicine 12/31/22 Tita Ruiz MD [address] [address] PCP - [employer] 05/05/24 documented as of this encounter
--- OUTSIDE RECORDS SUMMARY | 2025-02-19 09:52 | XMS_ITS | Encounter Summary ---
Author Organization [facility] Address [address] [facility] [place] [address] Care Team Providers Care Registered Diet Technician Name Role Phone Ron Peterson MD Primary Care Provider [phone] Ryan Ruiz MD Unavailable [phone] Encounter Details Date Type Department Care Team (Late Contact Info) Description 01/10/2025 Abstract [facility] Family [facility] [address] [place] [phone] Unallocated, Noms MD Mc [address] [place] [address] Social History Tobacco Use Types Packs/Day Years [...] Description 06/07/2025 9:00 AM EST Office Visit NOMJesus HIDALGO [address] [facility] [address] [place] [address] Laura Jones PA [address] [facility] [place] [address] documented as of this encounter Visit Diagnoses Not on filedocumented in this encounter Care Teams Registered Diet Technician Relationship Specialty Start Date End Date Ron Peterson MD PCP - General Family Medicine 12/31/22 Ryan Ruiz MD [address] [address] PCP - [employer] 05/05/24 documented as of this encounter
--- OUTSIDE RECORDS SUMMARY | 2025-02-19 09:52 | XMS_ITS | Encounter Summary ---
Author Organization [facility] Address [address] [facility] [place] [address] Care Team Providers Care Sales Assistants And Salespersons Name Role Phone Ron Peterson MD Primary Care Provider [phone] Ryan Riuz MD Unavailable [phone] Encounter Details Date Type Department Care Team (Late Contact Info) Description 12/31/2022 Abstract [facility] [address] [facility] 120 [place] [phone] Quoc Bartlett, DPEloina [address] [facility] [address] [place] [address] Social History Tobacco Use Types Packs/Day Years [...] 9:00 AM EST Office Visit [facility] Pankaj [facility]ID[facility] [address] [place] [address] Laura Jones PA [address] [facility] [place] [address] documented as of this encounter Visit Diagnoses Not on filedocumented in this encounter Care Teams Sales Assistants And Salespersons Relationship Specialty Start Date End Date Ron Peterson MD PCP - General Family Medicine 12/31/22 Ryan Ruiz MD [address] [facility] 110 [place] [address] PCP - [employer] 05/05/24 documented as of this encounter
--- OUTSIDE RECORDS SUMMARY | 2025-02-19 09:52 | XMS_ITS | Encounter Summary ---
Author Organization [facility] Address [address] [facility] [place] [address] Care Team Providers Care Registered Public Surveyor Name Role Phone Ron Peterson MD Primary Care Provider [phone] Ryan Ruiz MD Unavailable [phone] Encounter Details Date Type Department Care Team (Late Contact Info) Description 12/09/2023 Abstract [facility] [address] [facility] 110 [place] [address] Ryan Ruiz MD 112 [facility] 110 [place], [place] [phone] Social History Tobacco Use Types Packs/Day Years [...] EST Office Visit [facility] Pankaj [facility] [address] [facility] [place] [address] Laura Jones PA [address] [place] [address] documented as of this encounter Visit Diagnoses Not on filedocumented in this encounter Care Teams Registered Public Surveyor Relationship Specialty Start Date End Date Ron Peterson MD PCP - General Family Medicine 12/31/22 Ryan Ruiz MD 112 [facility] 110 [place] [address] PCP - [employer] 05/05/24 documented as of this encounter
--- OUTSIDE RECORDS SUMMARY | 2025-02-19 09:52 | XMS_ITS | Clinical Summary ---
Author Organization [employer] Address [id number] [address] [place] [address] Care Team Providers Care Experience Design Director Name Role Phone Ron Peterson MD Primary Care Provider [phone] Family History Medical History Relation Name Comments Breast cancer Neg Hx Social History Tobacco Use Types Packs/Day Years Used Date Smoking Tobacco: Never Assessed Childcare Answer Date Recorded Childcare Unknown 12/14/2018 Employment Answer Date Recorded Employment Unknown 12/14/2018 Purpose - Life Answer Date Recorded Purpose and direction in life Unknown Comments Unknown Sex and Gender Information Value Date Recorded Sex Assigned at Not on file Legal Sex Female 11:42 AM EDT Gender Identity Not on file Sexual Orientation Not on file Plan of Treatment Health Maintenance Due Date Last Done Comments Depression Screening 1964 Tobacco Screening 1964 Adult BMI Screening 1970 DTaP,Tdap and Td Vaccines (1 - Tdap) 09/03/1971 Zoster (Shingles) Vaccine (1 of 2) 2002 Fall Risk Screening 2017 Influenza Vaccine 03/05/2025 Medical Devices Not on file Insurance [employer] Care Teams Experience Design Director Relationship Specialty Start Date End Date Ron Peterson MD PCP - General 01/08/17
--- OUTSIDE RECORDS SUMMARY | 2025-02-19 09:52 | XMS_ITS | Clinical Summary ---
Author Organization [facility] Address [address] [facility], [address] [place] [address] Care Team Providers Care Wardrobe Assistant Name Role Phone Ron Peterson MD Primary Care Provider [phone] Allergies Active Allergy Reactions Criticality Noted Date [...] of Treatment Not on file Care Teams Wardrobe Assistant Relationship Specialty Start Date End Date Ron Peterson MD [address] [place] [address] PCP - General 07/06/13
--- OUTSIDE RECORDS SUMMARY | 2025-02-19 09:52 | XMS_ITS | Encounter Summary ---
Author Organization [facility] Address [address] [facility] [place] [address] Care Team Providers Care Terra Cotta Mold Maker Name Role Phone Ron Peterson MD Primary Care Provider [phone] Ryan Ruiz MD Unavailable [phone] Encounter Details Date Type Department Care Team (Late st Contact Info) Description 09/14/2024 Abstract [facility] [address] [place] [address] Unallocated, Noms Provider, [address] [place] [address] Social History Tobacco Use Types Packs/Day Years [...] AM EST Office Visit NOMJesus H[facility]AL[facility] [address] [facility] [place] [phone] Laura Jones PA [address] [facility] [address] [place], [place] [phone] documented as of this encounter Visit Diagnoses Not on filedocumented in this encounter Care Teams Terra Cotta Mold Maker Relationship Specialty Start Date End Date Ron Peterson MD PCP - General Family Medicine 12/31/22 Ryan Ruiz MD 112 [facility] 110 [place] [address] PCP - [employer] 05/05/24 documented as of this encounter
--- OUTSIDE RECORDS SUMMARY | 2025-02-19 09:52 | XMS_ITS | Encounter Summary ---
Author Organization [facility] Address [address] [facility] [place] [address] Care Team Providers Care Stonemason Supervisor Name Role Phone Ron Peterson MD Primary Care Provider [phone] Tita Ruiz MD Unavailable [phone] Encounter Details Date Type Department Care [...] EST Office Visit [facility] Pankaj HIDALGO [address] [facility] [place] [phone] Laura Jones PA [address] [facility] [address] [place], [facility]11 documented as of this encounter Procedures Procedure Name Priority Date/Time Associated Diagnosis Comments NM ANGELI PERF SPECT REST STR 11/24/2023 3:31 PM EDT documented in this encounter Results * NM ANGELI PERF SPECT REST STR (11/24/2023 3:31 PM EDT) Anatomical Region Laterality Modality Other 11/24/2023 3:31 PM EDT Narrative 11/24/2023 3:32 PM EDT [address] [address] Nuclear Medicine Report Signed Patient: MADAN COONEY MR#: [id number] : 1950 Acct:[id number] Age/Sex: 73 / F ADM Date: 11/23/23 Loc: [place] Attending Dr: PRETTY ALEMAN APRN Ordering Physician: PRETTY ALEMAN APRN Date of Service: 11/23/23 Procedure(s): NM angeli perf SPECT rest str Accession Number(s): [id number] cc: TITA RUIZ ; PRETTY ALEMAN APRN Patient Name: MADAN COONEY MR#: [id number] : 1950 Exam Date: 11/23/2023 Ordering Doctor: PRETTY ALEMAN [facility] RADIOLOGY REPORT PROCEDURE: NM ANGELI PERF SPECT [...] By: Burton Zuñiga M.D. Signed By: 11/24/23 153 DD/ 153 TD/TT: Interior Design Faculty Member: Procedure Note Radiology, Radiologist, MD - 11/24/2023 [place] [address] Nuclear Medicine Report Signed Patient: MADAN COONEY LMR#: [id number] : 1950cct:[id number] Age/Sex: 73 / FADM Date: 11/23/23 Loc: [place] Attending Dr: PRETTY ALEMAN APRN Ordering Physician: PRETTY ALEMAN APRN Date of Service: 11/23/23 Procedure(s): NM angeli perf SPECT rest str Accession Number(s): [id number] cc: TITA RUIZ ; PRETTY ALEMAN APRN Patient Name: MADAN COONEY MR#: [id number] : 1950 Exam Date: 11/23/2023 Ordering Doctor: [...] Pending exercise test results Dictated by: Burton Zuiñga MD on 11/24/2023 at 15:30 Approved by: Burton Zuñiga MD on 11/24/2023 at 15:31 Dictated By: Burton Zuñiga M.D. Signed By:11/24/23 1532 DD/ 153 TD/TT: Interior Design Faculty Member: us Generic External Data Provider [facility] Final Result documented in this encounter Visit Diagnoses Not on filedocumented in this encounter Care Teams Stonemason Supervisor Relationship Specialty Start Date End Date Ron Peterson MD PCP - General Family Medicine 12/31/22 Tita Ruiz MD [address] [place] [address] PCP - [employer] 05/05/24 documented as of this encounter
--- OUTSIDE RECORDS SUMMARY | 2025-02-19 09:52 | XMS_ITS | Encounter Summary ---
Author Organization [facility] Address [address] [facility] [place] [address] Care Team Providers Care Hairmasters Manager Name Role Phone Ron Peterson MD Primary Care Provider [phone] Ryan Ruiz MD Unavailable [phone] Encounter Details Date Type Department Care Team (Late Contact Info) Description 12/09/2023 Abstract [facility] [address] [facility] 110 [place] [address] Ryan Ruiz MD 112 [facility] 110 [place], [place] [phone] Social History Tobacco Use Types Packs/Day Years [...] EST Office Visit [facility]S Pankaj [facility] [address] [facility] [place] [address] Laura Jones PA [address] [facility] [place] [address] documented as of this encounter Visit Diagnoses Not on filedocumented in this encounter Care Teams Hairmasters Manager Relationship Specialty Start Date End Date Ron Peterson MD PCP - General Family Medicine 12/31/22 Ryan Ruiz MD 112 [facility] 110 [place] [address] PCP - [employer] 05/05/24 documented as of this encounter
--- OUTSIDE RECORDS SUMMARY | 2025-02-19 09:52 | XMS_ITS | Clinical Summary ---
Author Organization [facility] Address [address] [facility] [place] [address] Care Team Providers Care Steeping Press Tender Name Role Phone Ron Peterson MD Primary Care Provider [phone] Ryan Ruiz MD Unavailable [phone] Allergies Active Allergy Reactions Criticality Noted [...] mg) by mouth Daily 90 tablet 3 5 Active Active Problems Problem Noted Date Diagnosed [...] continue Eliquis 5 mg twice daily - [id number] at least 3 for age, gender, hypertension - continue metoprolol XL 50 mg daily - in the past she was on amiodarone for short-term, converted chemically and then amiodarone was discontinued - recent ER visit she had elevated TSH Encounters Date Type Department Care Team Description 01/15/2025 10:00 AM EDT Office Visit [facility] [place] [facility] [address] [facility] [address] [place] [address] Ryan Ruiz MD Tendonitis of wrist, left (Primary Dx); Fall at home, sequela 01/15/2025 Bamboo flowsheet [facility] [place] [facility] [address] [facility] [address] [place] [address] Ryan Ruiz MD 01/15/2025 Travel 01/10/2025 Abstract [facility] [place] [facility] [address] [facility] [address] [place] [address] Unallocated, Noms MD Mc 01/10/2025 Abstract [facility] [place] [facility] [address] [facility] [address] [place] [address] Unallocated, Noms MD Mc 01/10/2025 Abstract [facility] [place] [facility] [address] [facility] [address] [place] [address] Unallocated, Noms MD Mc from Last 3 Months Immunizations Immunization Administration [...] Sign Reading Time Taken Comments Blood Pressure 128/78 01/15/2025 9:58 AM EDT Pulse 68 01/15/2025 9:58 AM EDT Temperature - - Respiratory Rate 15 12/06/2023 1:49 PM EDT Oxygen Saturation 97% 01/15/2025 9:58 AM EDT Inhaled Oxygen Concentration - - Weight 60.3 kg (133 lb) 01/15/2025 9:58 AM EDT Height 152.4 cm (5') 01/15/2025 9:58 AM EDT Body Mass Index 25.97 01/15/2025 9:58 AM EDT Plan of Treatment Upcoming Encounters Date Type Department Care Team (Late st Contact Info) Description 06/07/2025 9:00 AM EST Office Visit [facility] [address] [place] [address] Laura Jones PA [address] [facility] [address] [place] [address] Health Maintenance Due Date Last Done Comments [...] STL-IMP Negative Negative 09/29/2024 12:41 PM EDT [facility] (CLIA #:[id number]) Comment: NEGATIVE TEST RESULT. A negative Cologuard [...] screened with both Cologuard and colonoscopy. (James Snow. et al, N Engl J Med 2014;370(14):0425-0150) The normal value (reference range) for this assay is negative. COLOGUARD RE-SCREENING RECOMMENDATION: Periodic colorectal cancer screening is an important part of preventive healthcare for asymptomatic individuals at average risk for colorectal cancer. Following a negative Cologuard result, the [place] Cancer Society and U.S. Multi-Society Task Force screening guidelines recommend a Cologuard re-screening interval of 3 years. References: [place] Cancer Society Guideline for Colorectal Cancer Screening: https://www.cancer.org/cancer/hdxac-iisude-uibgzc/ofxwrjjjy-mbmniubni-dytvdkr/ac s-rec ommendations.html.; Alvaro MINOR, Jakub GUTHRIE, Osmani AbbasiK, Colorectal Cancer Screening: Recommendations for Physicians and Patients from the U.S. Multi-Society Task Force on Colorectal Cancer Screening , Am J Gastroenterology 2017; 112:3686-8160. TEST DESCRIPTION: Composite algorithmic analysis of stool [...] screened with both Cologuard and colonoscopy. (James San et al, N Engl J Med 2014;370(14):7114-4967.) Cologuard may produce a false negative or false positive result (no colorectal cancer or precancerous polyp present at colonoscopy follow up). A negative Cologuard test result does not guarantee the absence of CRC or advanced adenoma (pre-cancer). The current Cologuard screening interval is every 3 years. ([place] Cancer Society and U.S. Multi-Society Task Force). Cologuard performance data in a 10,000 patient pivotal study using colonoscopy as the reference method can be accessed at the following location: www.Visualead.BugSense/results. Additional description of the Cologuard test process, warnings and precautions can be found at www.cologuard.com. Stool specimen (specimen) 09/26/2024 9:00 AM EDT 09/27/2024 12:42 PM EDT Adelina Chamberlain NP LAB MOLECULAR DIAGNOSTICS ORDERA BLES Final Result [facility] (CLIA #:[id number]) [address] [id number], [facility] (CLIA #:[id number]) [address] [id number] * MM TOMOSYNTHESIS SCREENING BI (02/18/2024 9:56 AM EDT) Anatomical Region Laterality Modality Other 02/18/2024 9:56 AM EDT Narrative 02/18/2024 9:57 AM EDT The [address] [address] Mammography Report Signed Patient: SHARRI COONEY MR#: [id number] : 1950 Acct:[id number] Age/Sex: 73 / F ADM Date: 02/17/24 Loc: MAMMO Attending Dr: Theo Ley D.O. Ordering Physician: Theo Ley D.O. Results: Date of Service: 02/17/24 Follow Up: Procedure(s): MM tomosynthesis screening BI Accession Number(s): [id number] cc: RYAN RUIZ ; Theo Ley D.O. Patient Name: SHARRI COONEY MR#: [id number] : 1950 Exam Date: 02/17/2024 Ordering Doctor: [...] prostate cancer at age 60. LOCATION: The [facility] BREAST COMPOSITION: The breasts are heterogeneously [...] Signed By: 02/18/24 0957 DD/ 0956 TD/TT: Electrical Apprentice: Procedure Note Radiology, Radiologist, MD - 02/18/2024 [place] [address] Mammography Report Signed Patient: SHARRI COONEY LMR#: [id number] : 1950cct:[id number] Age/Sex: 73 / FADM Date: 02/17/24 Loc: MAMMO Attending Dr: Theo Ley D.O. Ordering Physician: Theo Ley D.O.Results: Date of Service: 02/17/24Follow Up: Procedure(s): MM tomosynthesis screening BI Accession Number(s): [id number] cc: RYAN RUIZ ; Theo Ley D.O. Patient Name: SHARRI COONEY MR#: [id number] : 1950 Exam Date: 02/17/2024 Ordering Doctor: DR Theo Ley . RADIOLOGY REPORT PROCEDURE: MM TOMOSYNTHESIS SCREENING BI COMPARISON: MM TOMOSYNTHESIS SCREENING BI, 02/10/2023. MG MAMM [id number] JASMEET CAD, 02/09/2022. MG MAMM SCREEN 3D JASMEET CAD, 02/03/2021. MG MAMM SCREENBIL W CAD, 01/21/2015. INDICATIONS: Screening Calculator Name NCI Breast Cancer Risk Assessment Tool 5 Year Breast Cancer Risk 1.70% Lifetime Breast Cancer Risk 4.70% Personal Breast Cancer No Personal Ovarian Cancer No Treatments None Family Cancers Father with prostate cancer at age 58. LOCATION: The [facility] BREAST COMPOSITION: The breasts are heterogeneously [...] By: Leander Donahue M.D. Signed By:02/18/2457 DD/ TD/TT: Electrical Apprentice: Generic External Data Provider [facility] Final Result from Last 3 Months or Most Recently Relevant to Health Maintenance [place] [address] [employer] MEDICARE ADVANTAGE Care Teams Steeping Press Tender Relationship Specialty Start Date End Date Ron Peterson MD PCP - General Family Medicine 12/31/22 Ryan Ruiz MD [address] [facility] [address] [place] [address] PCP - [employer] 05/05/24
--- OUTSIDE RECORDS SUMMARY | 2025-02-19 09:52 | XMS_ITS | Encounter Summary ---
Author Organization [facility] Address [address] [facility] [place] [address] Care Team Providers Care Flower Machine Operator Name Role Phone Ron Peterson MD Primary Care Provider [phone] Tita Ruiz MD Unavailable [phone] Encounter Details Date Type Department Care [...] EST Office Visit [facility] [address] [facility] [place] [address] Laura Jones PA [address] [facility] [address] [place], [facility] documented as of this encounter Procedures Procedure Name Priority Date/Time Associated Diagnosis Comments XR WRIST LT MIN 3 V 04/10/2024 1 :58 PM EDT documented in this encounter Results * XR WRIST LT MIN 3 V (04/10/2024 1:58 PM EDT) Anatomical Region Laterality Modality Radiographic Jacquelin ging 04/10/2024 1:58 PM EDT Narrative 04/10/2024 2:01 PM EDT [address] [address] XRay Report Signed Patient: MADAN COONEY MR#: [id number] : 1950 Acct:[id number] Age/Sex: 73 / F ADM Date: 04/10/24 Loc: EC Attending Dr: Tiffanie Villanueva M.D. Ordering Physician: Tiffanie Villanueva M.D. Date of Service: 04/10/24 Procedure(s): XR wrist LT min 3V Accession Number(s): [id number] cc: TITA RUIZ ; Tiffanie Villanueva M.D. [address] [address] Patient Name: MADAN COONEY MRN: [facility]:[id number] date: 1950 Sex: F Assigned Patient Location: Current Patient Location: Accession/Order Number: [id number] Exam Date: 04/10/2024 07:35 Report Date: 04/10/2024 [...] Signed By: 04/10/24 1401 DD/ 1358 TD/TT: Sign Board Erector: Procedure Note Radiology, Radiologist, MD - 04/10/[address] [address] XRay Report Signed Patient: MADAN COONEY LMR#: [id number] : 1950cct:[id number] Age/Sex: 73 / FADM Date: 04/10/24 Loc: EC Attending Dr: Tiffanie Villanueva M.D. Ordering Physician: Tiffanie Villanueva M.D. Date of Service: 04/10/24 Procedure(s): XR wrist LT min 3V Accession Number(s): [id number] cc: TITA RUIZ ; Tiffanie Villanueva M.D. The [address] [address] Patient Name: MADAN COONEY MRN: [id number]:[id number] date: 1950 Sex: F Assigned Patient Location: Current Patient Location: Accession/Order Number: [id number] Exam Date: 04/10/2024 07:35 Report Date: 04/10/2024 [...] Dictated By: Rafiq Hammond M.D. Signed By:04/10/24 1407 DD/ 1358 TD/TT: Sign Board Erector: us Generic External Data Provider IMG XR PROCEDURES Final Result documented in this encounter Visit Diagnoses Not on filedocumented in this encounter Care Teams Flower Machine Operator Relationship Specialty Start Date End Date Ron Peterson MD PCP - General Family Medicine 12/31/22 Tita Ruiz MD 112 [facility] 110 [place] [address] PCP - [employer] 05/05/24 documented as of this encounter
--- OUTSIDE RECORDS SUMMARY | 2025-02-19 09:52 | XMS_ITS | Encounter Summary ---
Author Organization [facility] Address [address] [facility] [place] [address] Care Team Providers Care Telecom Coordinator Name Role Phone Ron Peterson MD Primary Care Provider [phone] Ryan Ruiz MD Unavailable [phone] Encounter Details Date Type Department Care Team (Late Contact Info) Description 12/09/2023 Abstract [facility] [place] [facility] [address] [facility] 110 [place] [address] Ryan Ruiz MD 112 [facility] 110 [place], [place] [address] Social History Tobacco Use Types Packs/Day Years [...] EST Office Visit [facility] [address] [place] [address] Laura Jones PA [address] [facility] [place] [address] documented as of this encounter Visit Diagnoses Not on filedocumented in this encounter Care Teams Telecom Coordinator Relationship Specialty Start Date End Date Ron Peterson MD PCP - General Family Medicine 12/31/22 Ryan Ruiz MD 112 [facility] 110 [place] [address] PCP - [employer] 05/05/24 documented as of this encounter
--- OUTSIDE RECORDS SUMMARY | 2025-02-19 09:52 | XMS_ITS | Encounter Summary ---
Author Organization [facility] Address [address] [facility] [place] [address] Care Team Providers Care Cleaner Laboratory Equipment Name Role Phone Ron Peterson MD Primary Care Provider [phone] Ryan Ruiz MD Unavailable [phone] Encounter Details Date Type Department Care Team (Late Contact Info) Description 12/09/2023 Abstract [facility] [place] [facility] [address] [facility] 110 [place] [address] Ryan Ruiz MD 112 [facility] 110 [place], [place] [address] Social History Tobacco Use Types Packs/Day Years [...] EST Office Visit [facility] [address] [facility] [place] [address] Laura Jones PA [address] [facility] [place] [address] documented as of this encounter Visit Diagnoses Not on filedocumented in this encounter Care Teams Cleaner Laboratory Equipment Relationship Specialty Start Date End Date Ron Peterson MD PCP - General Family Medicine 12/31/22 Ryan Ruiz MD 112 [facility] 110 [place] [address] PCP - [employer] 05/05/24 documented as of this encounter
--- OUTSIDE RECORDS SUMMARY | 2025-02-19 09:52 | XMS_ITS | Encounter Summary ---
Author Organization [employer] Address [id number] [address] 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 She wants toknow if getting the COVID vaccine is okay to get. She wants to get it but her PCP states no too. Charisma Dubon CMA 08/15/20 1500 documented in this encounter Plan of Treatment Not on file documented as of this encounter Visit Diagnoses Not on filedocumented in this encounter Care Teams Rag Washer Relationship Specialty Start Date End Date Ron Peterson MD PCP - General 01/08/17 documented as of this encounter
--- OUTSIDE RECORDS SUMMARY | 2025-02-19 09:52 | XMS_ITS | Encounter Summary ---
Author Organization [facility] Address [address] [facility] [place] [address] Care Team Providers Care Sweatband Maker Name Role Phone Ron Peterson MD Primary Care Provider [phone] Tita Ruiz MD Unavailable [phone] Encounter Details Date Type Department Care Team (Late st Contact Info) Description 02/18/2024 Clinisync Result Encounter [...] EST Office Visit [facility] [address] [facility] [place] [address] Laura Jones PA [address] [facility] [address] [place], [facility]11 documented as of this encounter Procedures Procedure Name Priority Date/Time Associated Diagnosis Comments MM TOMOSYNTHESIS SCREENING BI 02/18/2024 9:56 AM EDT documented in this encounter Results * MM TOMOSYNTHESIS SCREENING BI (02/18/2024 9:56 AM EDT) Anatomical Region Laterality Modality Other 02/18/2024 9:56 AM EDT Narrative 02/18/2024 9:57 AM EDT The [address] [address] Mammography Report Signed Patient: MADAN COONEY MR#: [id number] : 1950 Acct:[id number] Age/Sex: 73 / F ADM Date: 02/17/24 Loc: MAMMO Attending Dr: Theo Ley D.O. Ordering Physician: Theo Ley D.O. Results: Date of Service: 02/17/24 Follow Up: Procedure(s): MM tomosynthesis screening BI Accession Number(s): [id number] cc: TITA RUIZ ; Theo Ley D.O. Patient Name: MADAN COONEY MR#: [id number] : 1950 Exam Date: 02/17/2024 Ordering Doctor: [...] prostate cancer at age 60. LOCATION: The [facility] BREAST COMPOSITION: The breasts are [...] Dictated By: Leander Donahue M.D. Signed By: 02/18/2457 DD/ 5 TD/TT: Swedger: Procedure Note Radiology, Radiologist, MD - 02/18/2024 [place] [address] Mammography Report Signed Patient: MADAN COONEY LMR#: [id number] : 1950cct:[id number] Age/Sex: 73 / FADM Date: 02/17/24 Loc: MAMMO Attending Dr: Theo Ley D.O. Ordering Physician: Theo Ley D.O.Results: Date of Service: 02/17/24Follow Up: Procedure(s): MM tomosynthesis screening BI Accession Number(s): [id number] cc: TITA RUIZ ; Theo Ley D.O. Patient Name: MADAN COONEY MR#: [id number] : 1950 Exam Date: 02/17/2024 Ordering Doctor: DR Theo Ley . RADIOLOGY REPORT PROCEDURE: MM TOMOSYNTHESIS SCREENING BI COMPARISON: MM TOMOSYNTHESIS SCREENING BI, 02/10/2023. MG MAMM [id number] JASMEET CAD, 02/09/2022. MG MAMM SCREEN 3D JASMEET CAD, 02/03/2021. MG MAMM SCREENBIL W CAD, 01/21/2015. INDICATIONS: Screening Calculator Name NCI Breast Cancer Risk Assessment Tool 5 Year Breast Cancer Risk 1.70% Lifetime Breast Cancer Risk 4.70% Personal Breast Cancer No Personal Ovarian Cancer No Treatments None Family Cancers Father with prostate cancer at age 58. LOCATION: The [facility] BREAST COMPOSITION: The breasts are [...] Donahue M.D. Signed By:02/18/2457 DD/ 5 TD/TT: Swedger: Generic External Data Provider [facility] Final Result documented in this encounter Visit Diagnoses Not on filedocumented in this encounter Care Teams Sweatband Maker Relationship Specialty Start Date End Date Ron Peterson MD PCP - General Family Medicine 12/31/22 Tita Ruiz MD [address] [place] [address] PCP - [employer] 05/05/24 documented as of this encounter
--- OUTSIDE RECORDS SUMMARY | 2025-02-19 09:52 | XMS_ITS | Encounter Summary ---
Author Organization [facility] Address [address] [place] [address] Care Team Providers Care Restaurant Culinary Manager Name Role Phone Ron Peterson MD Primary Care Provider [phone] Tita Ruiz MD Unavailable [phone] Encounter Details Date Type Department Care Team (Late st Contact Info) Description 05/09/2024 Clinisync Result Encounter NOM[facility] External Department Unsolicited [...] EST Office Visit [facility] [address] [facility] [place] [address] Laura Jones PA [address] [facility] [address] [place], [facility]11 documented as of this encounter Procedures Procedure Name Priority Date/Time Associated Diagnosis Comments XR WRIST LT MIN 3 V 05/09/2024 1 0:13 AM EST documented in this encounter Results * XR WRIST LT MIN 3 V (05/09/2024 10:13 AM EST) Anatomical Region Laterality Modality Radiographic Jacquelin ging 05/09/2024 10:1 3 AM EST Narrative 05/09/2024 10:15 AM EST [address] [address] XRay Report Signed Patient: MADAN COONEY MR#: [id number] : 1950 Acct:[id number] Age/Sex: 73 / F ADM Date: 05/08/24 Loc: EC Attending Dr: Tiffanie Villanueva M.D. Ordering Physician: Tiffanie Villanueva M.D. Date of Service: 05/08/24 Procedure(s): XR wrist LT min 3V Accession Number(s): [id number] cc: TITA RUIZ ; Tiffanie Villanueva M.D. [address] [address] Patient Name: MADAN COONEY MRN: [facility]:[id number] date: 1950 Sex: F Assigned Patient Location: Current Patient Location: Accession/Order Number: [id number] Exam Date: 05/08/2024 07:55 Report Date: 05/09/2024 10:13 At the request of: ITFFANIE VILLANUEVA Procedure: XR wrist LT min 3V PROCEDURE: XR wrist LT min 3V COMPARISON: 04/10/2024 HISTORY: LEFT WRIST PAIN FINDINGS: BONES:Stable healing complex intra-articular distal radius fracture with interval increase in overall sclerosis. No change in angulation or distraction. Moderate degenerative changes with joint space narrowing. SOFT TISSUES:Negative. No visible soft tissue swelling. EFFUSION:None visible. OTHER: Negative. XR/XR wrist LT min 3V IMPRESSION: Stable healing complex distal intra-articular radius fracture Electronically authenticated by: RAFIQ HAMMOND Date: 05/09/2024 10:13 Dictated By: Rafiq Hammond M.D. Signed By: 05/09/24 1015 DD/ 1013 TD/TT: Household Appliance Assembler: Procedure Note Radiology, Radiologist, MD - 05/09/[address] [place] [address] XRay Report Signed Patient: MADAN COONEY LMR#: [id number] : 1950cct:[id number] Age/Sex: 73 / FADM Date: 05/08/24 Loc: EC Attending Dr: Tiffanie Villanueva M.D. Ordering Physician: Tiffanie Villanueva M.D. Date of Service: 05/08/24 Procedure(s): XR wrist LT min 3V Accession Number(s): [id number] cc: TITA RUIZ ; Tiffanie Villanueva M.D. The [place] [id number] Patient Name: MADAN COONEY MRN: [facility]:[id number] date: 1950 Sex: F Assigned Patient Location: Current Patient Location: Accession/Order Number: [id number] Exam Date: 05/08/2024 07:55 Report Date: 05/09/2024 10:13 At the request of: TIFFANIE VILLANUEVA Procedure: XR wrist LT min 3V PROCEDURE: XR wrist LT min 3V COMPARISON: 04/10/2024 HISTORY: LEFT WRIST PAIN FINDINGS: BONES:Stable healing complex intra-articular distal radius fracture with interval increase in overall sclerosis. No change in angulation or distraction. Moderate degenerative changes with joint space narrowing. SOFT TISSUES:Negative. No visible soft tissue swelling. EFFUSION:None visible. OTHER: Negative. XR/XR wrist LT min 3V IMPRESSION: Stable healing complex distal intra-articular radius fracture Electronically authenticated by: RAFIQ HAMMOND Date: 05/09/2024 10:13 Dictated By: Rafiq Hammond M.D. Signed By:05/09/24 1015 DD/ 1013 TD/TT: Household Appliance Assembler: us Generic External Data Provider IMG XR PROCEDURES Final Result documented in this encounter Visit Diagnoses Not on filedocumented in this encounter Care Teams Restaurant Culinary Manager Relationship Specialty Start Date End Date Ron Peterson MD PCP - General Family Medicine 12/31/22 Tita Ruiz MD 112 [facility] 110 [place] [id number] PCP - [employer] 05/05/24 documented as of this encounter
--- OUTSIDE RECORDS SUMMARY | 2025-02-19 09:52 | XMS_ITS | Encounter Summary ---
Author Organization [facility] Address [address] [facility] [place] [address] Care Team Providers Care Barrel Turner Name Role Phone Ron Peterson MD Primary Care Provider [phone] Ryan Ruiz MD Unavailable [phone] Encounter Details Date Type Department Care Team (Late Contact Info) Description 12/09/2023 Abstract [facility] [place] [facility] [address] [facility] 110 [place] [address] Ryan Ruiz MD 112 [facility] 110 [place], [place] [address] Social History Tobacco Use Types Packs/Day Years [...] EST Office Visit [facility] [address] [facility] [place] [address] Laura Jones PA [address] [facility] [place] [address] documented as of this encounter Visit Diagnoses Not on filedocumented in this encounter Care Teams Barrel Turner Relationship Specialty Start Date End Date Ron Peterson MD PCP - General Family Medicine 12/31/22 Ryan Ruiz MD 112 [facility] 110 [place] [address] PCP - [employer] 05/05/24 documented as of this encounter
--- OUTSIDE RECORDS SUMMARY | 2025-02-19 09:52 | XMS_ITS | Encounter Summary ---
Author Organization [facility] Address [address] [facility] [place] [address] Care Team Providers Care Cadastral Surveyor Name Role Phone Ron Peterson MD Primary Care Provider [phone] Ryan Ruiz MD Unavailable [phone] Encounter Details Date Type Department Care Team (Late Contact Info) Description 03/08/2024 Abstract [facility] [place] [facility] 112 [facility] 110 [place] [address] Ron Peterson MD [address] [facility] [place] [address] Social History Tobacco Use Types Packs/Day Years [...] EST Office Visit [facility] [address] [facility] [place] [address] Laura Jones PA [address] [facility] [address] [place], [place] [address] documented as of this encounter Visit Diagnoses Not on filedocumented in this encounter Care Teams Cadastral Surveyor Relationship Specialty Start Date End Date Ron Peterson MD PCP - General Family Medicine 12/31/22 Ryan Ruiz MD 112 [facility] 110 [place] [address] PCP - [employer] 05/05/24 documented as of this encounter
--- OUTSIDE RECORDS SUMMARY | 2025-02-19 09:52 | XMS_ITS | Encounter Summary ---
Author Organization [facility] Address [address] [facility] [place] [address] Care Team Providers Care Preparatory Technician Name Role Phone Ron Peterson MD Primary Care Provider [phone] Encounter Details Date Type Department Care Team (Late st Contact Info) Description 07/06/2013 PAT Telephone [facility] Pre-Admit Testing [address] [place], [place] [phone] Bandar Chamberlain RN Social History Tobacco Use Types Packs/Day Years [...] on filedocumented in this encounter Care Teams Preparatory Technician Relationship Specialty Start Date End Date Ron Peterson MD [address] [place] [address] PCP - General 07/06/13 documented as of this encounter
--- OUTSIDE RECORDS SUMMARY | 2025-02-19 09:52 | XMS_ITS | Encounter Summary ---
Author Organization [facility] Address [address] [facility] [place] [address] Care Team Providers Care Engineering Research Manager Name Role Phone Ron Peterson MD Primary Care Provider [phone] Ryan Ruiz MD Unavailable [phone] Encounter Details Date Type Department Care Team (Late Contact Info) Description 12/09/2023 Abstract [facility] [address] [facility] [address] [place] [address] Ryan Ruiz MD 112 [facility] 110 [place], [place] [phone] Social History Tobacco Use Types Packs/Day Years [...] EST Office Visit [facility] P[facility]aj [facility] [address] [facility] [place] [address] Laura Jones PA [address] [facility] [place] [address] documented as of this encounter Visit Diagnoses Not on filedocumented in this encounter Care Teams Engineering Research Manager Relationship Specialty Start Date End Date Ron Peterson MD PCP - General Family Medicine 12/31/22 Ryan Ruiz MD 112 [facility] 110 [place] [address] PCP - [employer] 05/05/24 documented as of this encounter
--- OUTSIDE RECORDS SUMMARY | 2025-02-19 09:53 | XMS_ITS | Encounter Summary ---
Author Organization [facility] Address [address] [facility] [place] [address] Care Team Providers Care Barrel Line Operator Name Role Phone Ron Peterson MD Primary Care Provider [phone] Tita Ruiz MD Unavailable [phone] Encounter Details Date Type Department Care Team (Late st Contact Info) Description 07/31/2024 Clinisync Result Encounter [...] Office Visit [facility] Pankaj H[facility]ALGO [address] [facility] [place] [phone] Laura Jones PA [address] [facility] [address] [place], [facility]11 documented as of this encounter Procedures Procedure Name Priority Date/Time Associated Diagnosis Comments CA ECHO DOPPLER COMPLETE 07/31/2024 10:41 AM EST documented in this encounter Results * CA ECHO DOPPLER COMPLETE (07/31/2024 10:41 AM EST) Anatomical Region Laterality Modality Other 07/31/2024 10:4 1 AM EST Narrative 07/31/2024 10:42 [place] [address] Cardiology Report Signed Patient: MADAN COONEY MR#: [id number] : 1950 Acct:[id number] Age/Sex: 73 / F ADM Date: 07/31/24 Loc: CARD Attending Dr: Holly Pelayo M.D. Ordering Physician: Holly Pelayo M.D. Date of Service: 07/31/24 Procedure(s): CA echo doppler complete Accession Number(s): [id number] cc: TITA RUIZ ; Holly Pelayo M.D. Patient Name: MADAN COONEY MR#: [id number] : 1950 Exam Date: 07/31/2024 Ordering Doctor: [...] Signed By: 07/31/24 1042 DD/ 1041 TD/TT: Pulmonologist Intensivist: Procedure Note Radiology, Radiologist, MD - 07/31/2024 [place] [address] Cardiology Report Signed Patient: MADAN COONEY LMR#: [id number] : 1950cct:[id number] Age/Sex: 73 / FADM Date: 07/31/24 Loc: CARD Attending Dr: Holly Pelayo M.D. Ordering Physician: Holly Pelayo M.D. Date of Service: 07/31/24 Procedure(s): CA echo doppler complete Accession Number(s): [id number] cc: TITA RUIZ ; Holly Pelayo M.D. Patient Name: MADAN COONEY MR#: [id number] : 1950 Exam Date: 07/31/2024 Ordering Doctor: [...] ROBERTS Signed By:07/31/24 1042 DD/ 1041 TD/TT: Pulmonologist Intensivist: Generic External Data Provider [facility] Final Result documented in this encounter Visit Diagnoses Not on filedocumented in this encounter Care Teams Barrel Line Operator Relationship Specialty Start Date End Date Ron Peterson MD PCP - General Family Medicine 12/31/22 Tita Ruiz MD [address] [place] [id number] PCP - [employer] 05/05/24 documented as of this encounter
--- OUTSIDE RECORDS SUMMARY | 2025-02-19 09:53 | XMS_ITS | Encounter Summary ---
Author Organization [facility] Address [address] [place] [address] Care Team Providers Care Aircraft Structural Repairer Name Role Phone Ryan Ruiz MD Primary Care Provider [phone] Encounter Details Date Type Department Care Team (Late st Contact Info) Description 01/05/2025 Orders Only [facility] [address] [place] [address] Turner Harding MD [address] [place] [address] Social History Tobacco Use Types Packs/Day Years Used Date Smoking Tobacco: Never Smokeless Tobacco: Never Alcohol Use Standard Drinks/Week Comments Not Currently 0 (1 standard drink = 0.6 oz pur e alcohol) [place] Safety & Environment Answer Date Rec orded Fear of Current or Ex-Partner Not on file Emotionally Abused Not on file 08/26/2023 Physically Abused Not on file 08/26/2023 Sexually Abused Not on file 08/26/2023 Physically or Sexually Abused Not on file Comments No Sex and Gender Information Value Date Recorded Sex Assigned at Choose not to disclose 10/2024 9:25 PM EDT Legal Sex Female 12:39 AM EDT Gender Identity Choose not to disclose 9:25 PM EDT Sexual Orientation Choose not to disclose 2024 9:25 PM EDT documented as of this encounter Plan of Treatment Not on file documented as of this encounter Procedures Procedure Name Priority Date/Time Associated Diagnosis Comments CARDIAC DEVICE CHECK - REMOTE - LOOP RECORDER (ILR) Routine 01/05/2025 12:00 AM EDT documented in this encounter Results * Cardiac device check - Remote loop recorder (ILR) (01/05/2025 12:00 AM EDT) Anatomical Region Laterality Modality Other 01/05/2025 Turner Harding MD CV IMPLANTABLE CARDIAC DEVICE [place] OCEDURES Final Result documented in this encounter Visit Diagnoses Not on filedocumented in this encounter Care Teams Aircraft Structural Repairer Relationship Specialty Start Date End Date Ryan Ruiz MD PCP - General Internal Medicine 01/05/24 documented as of this encounter
--- OUTSIDE RECORDS SUMMARY | 2025-02-19 09:53 | XMS_ITS | Encounter Summary ---
Author Organization [facility] Address [address] [facility] [place] [address] Care Team Providers Care Senior C Web Developer Name Role Phone Ron Peterson MD Primary Care Provider [phone] Ryan Ruiz MD Unavailable [phone] Encounter Details Date Type Department Care Team (Late Contact Info) Description 01/10/2025 Abstract [facility] [address] [place] [phone] Unallocated, Noms MD Mc [address] [place] [address] Social History Tobacco Use Types Packs/Day Years [...] AM EST Office Visit [facility] [address] [facility] [place] [address] Laura Jones PA [address] [facility] [place] [address] documented as of this encounter Visit Diagnoses Not on filedocumented in this encounter Care Teams Senior C Web Developer Relationship Specialty Start Date End Date Ron Peterson MD PCP - General Family Medicine 12/31/22 Ryan Ruiz MD [address] [address] PCP - [employer] 05/05/24 documented as of this encounter
--- OUTSIDE RECORDS SUMMARY | 2025-02-19 09:53 | XMS_ITS | Encounter Summary ---
Author Organization [facility] Address [address] [facility] [place] [address] Care Team Providers Care Machine Farmworker Name Role Phone Ron Peterson MD Primary Care Provider [phone] Tita Ruiz MD Unavailable [phone] Encounter Details Date Type Department Care [...] EST Office Visit [facility] P[facility]aj [facility] [address] [facility] [place] [phone] Laura Jones PA [address] [facility] [address] [place], [facility]11 documented as of this encounter Procedures Procedure Name Priority Date/Time Associated Diagnosis Comments XR WRIST LT MIN 3 V 06/06/2024 6 :22 AM EST documented in this encounter Results * XR WRIST LT MIN 3 V (06/06/2024 6:22 AM EST) Anatomical Region Laterality Modality Radiographic Jacquelin ging 06/06/2024 6:22 AM EST Narrative 06/06/2024 6:24 AM EST [address] [address] XRay Report Signed Patient: MADAN COONEY MR#: [id number] : 1950 Acct:[id number] Age/Sex: 73 / F ADM Date: 06/05/24 Loc: EC Attending Dr: Tiffanie Villanueva M.D. Ordering Physician: Tiffanie Villanueva M.D. Date of Service: 06/05/24 Procedure(s): XR wrist LT min 3V Accession Number(s): [id number] cc: TITA RUIZ ; Tiffanie Villanueva M.D. The [address] [address] Patient Name: MADAN COONEY MRN: [facility]:[id number] date: 1950 Sex: F Assigned Patient Location: Current Patient Location: Accession/Order Number: [id number] Exam Date: 06/05/2024 08:05 Report Date: 06/06/2024 [...] M.D. Signed By: 06/06/24623 DD/ 1 TD/TT: Nuclear Power Plant Engineer: Procedure Note Radiology, Radiologist, MD - 06/06/[address] [address] XRay Report Signed Patient: MADAN COONEY LMR#: [id number] : 1950cct:[id number] Age/Sex: 73 / FADM Date: 06/05/24 Loc: EC Attending Dr: Tiffanie Villanueva M.D. Ordering Physician: Tiffanie Villanueva M.D. Date of Service: 06/05/24 Procedure(s): XR wrist LT min 3V Accession Number(s): [id number] cc: TITA RUIZ ; Tiffanie Villanueva M.D. The [address] [address] Patient Name: MADAN COONEY MRN: [id number] date: 1950 Sex: F Assigned Patient Location: Current Patient Location: Accession/Order Number: [id number] Exam Date: 06/05/2024 08:05 Report Date: 06/06/2024 [...] Donahue M.D. Signed By:06/06/24623 DD/ 1 TD/TT: Nuclear Power Plant Engineer: us Generic External Data Provider IMG XR PROCEDURES Final Result documented in this encounter Visit Diagnoses Not on filedocumented in this encounter Care Teams Machine Farmworker Relationship Specialty Start Date End Date Ron Peterson MD PCP - General Family Medicine 12/31/22 Tita Ruiz MD 112 [facility] 110 [place] [address] PCP - [employer] 05/05/24 documented as of this encounter
--- OUTSIDE RECORDS SUMMARY | 2025-02-19 09:53 | XMS_ITS | Clinical Summary ---
Author Organization [facility] Address [address] [place] [address] Care Team Providers Care Cw Operator Name Role Phone Ryan Ruiz MD Primary Care Provider [phone] Allergies Active Allergy Reactions Criticality Noted Date [...] continue Eliquis 5 mg twice daily - [id number] at least 3 for age, gender, hypertension - continue metoprolol XL 50 mg daily - in the past she was on amiodarone for short-term, converted chemically and then amiodarone was discontinued - recent ER visit she had elevated TSH Macular cyst, hole, or pseudohole of retina 09/201312/30/2022 Encounters Date Type Department Care Team Description 01/05/2025 Orders Only [facility] [address] [place] [phone] Turner Harding MD 12/22/2024 4:50 PM EDT Ancillary Procedure [facility] [address] [place] [phone] Awareness of heartbeats 12/22/2024 1:20 AM EDT Ancillary Procedure [facility] [address] [place] [phone] Awareness of heartbeats 11/19/2024 Orders Only [facility] [address] [place] [phone] Turner Harding MD from Last 3 Months Immunizations Immunization Administration Dates Next Due Covid (1o1Media) Bivalent Ethan ter =>12 YRS 05/14/2022 Tdap [...] not to disclose 2024 9:25 PM EDT Last Filed Vital Signs Vital Sign Reading [...] Done Comments CT Colonography 1950 Colonoscopy 1950 FOBT 1950 Medicare Annual Wellness (AWV) 1950 Sigmoidoscopy 1950 Depression Screening 1964 Pneumococcal Vaccine: 50+ Years (1 of 2 - PCV) 09/03/1971 Zoster Vaccines (1 of 2) 2002 Fall Risk Screening 2017 Mammogram 01/08/2019 01/08/2017 COVID-19 Vaccine ( season) 2024 08/19/2023, 05/14/2022, 10/14/2021, Additional history exists Influenza Vaccine (#1) 2025 FIT 09/26/2025 09/26/2024 Adult Tetanus 12/19/2026 12/19/2016 Colorectal Cancer Screening 09/27/2027 FIT-DNA 09/27/2027 09/26/2024 HIB Vaccines Aged Out No longer eligi [...] this topic Medical Devices Implanted Type Area Product Technology Scientist Device Identifier Shelf Expiration Date Model / Serial / Lot Monitor,Cardi ac,Lux,Dxii+I - [id number] - [id number] Implanted:Qty : 1 on 11/24/2023 by Turner Harding MD at [facility] Implantable Loop Recorder Left: Chest [employer] 03/29/2025 [id number] / [id number] / Procedures Procedure Name Priority Date/Time Associated Diagnosis Comments CARDIAC DEVICE CHECK CHECK - REMOTE Routine 02/05/2025 5:34 PM EDT Awareness of heartbeats CARDIAC DEVICE CHECK CHECK - REMOTE Routine 01/22/2025 4:55 PM EDT Awareness of heartbeats CARDIAC DEVICE CHECK CHECK - REMOTE Routine 01/17/2025 11:46 AM EDT Awareness of heartbeats CARDIAC DEVICE CHECK - REMOTE - LOOP RECORDER (ILR) Routine 01/05/2025 12:00 AM EDT CARDIAC DEVICE CHECK CHECK - REMOTE Routine 11/20/2024 9:57 AM EDT Awareness of heartbeats CARDIAC DEVICE CHECK - REMOTE - LOOP RECORDER (ILR) Routine 11/19/2024 12:00 AM EDT from Last 3 Months Results * CARDIAC DEVICE CHECK - REMOTE - LOOP RECORDER (ILR) (02/05/2025 5:34 PM EDT) Only the most recent of4 resultswithin the time period is included. Turner Harding MD CV IMPLANTABLE CARDIAC DEVICE [place] OCEDURES Final Result CPACS * Cardiac device check - Remote loop recorder (ILR) (01/05/2025 12:00 AM EDT) Only the most recent of2 resultswithin the time period is included. Anatomical Region Laterality Modality Other 01/05/2025 Turner Harding MD CV IMPLANTABLE CARDIAC DEVICE [place] OCEDURES Final Result from Last 3 Months Insurance [employer] MEDICARE ADVANTAGE Advance Directives * Full Code (Latest Code Status on File) Date Activated Date Inactivated Comments 01/13/2024 9:10 AM 01/13/2024 2:55 PM Care Teams Cw Operator Relationship Specialty Start Date End Date Ryan Ruiz MD PCP - General Internal Medicine 01/05/24
--- OUTSIDE RECORDS SUMMARY | 2025-02-19 09:53 | XMS_ITS | Encounter Summary ---
Author Organization [facility] Address [address] [facility] [place] [address] Care Team Providers Care Punch Machine Hand Name Role Phone Ron Peterson MD Primary Care Provider [phone] Ryan Ruiz MD Unavailable [phone] Encounter Details Date Type Department Care Team (Late Contact Info) Description 06/15/2024 Orders Only [facility] [address] [facility] [place] [address] Mervat Mary LPN [address] [facility] [address] [place], [place] [address] Social History Tobacco Use Types Packs/Day Years [...] AM EST Office Visit [facility]aj [facility] [address] [place] [address] [place] [address] Laura Jones PA [address] [facility] [address] [place], [facility]11 documented as of this encounter Procedures Procedure Name Priority Date/Time Associated Diagnosis Comments PAP SMEAR Routine 06/05/2024 12:00 AM EST documented in this encounter Results * Pap Smear (06/05/2024 12:00 AM EST) Swab Cervical swab / Unknown us Jil Nurse [facility] Ob LAB CYTOLOGY ORDERABLES Final Result EXTERNAL LAB documented in this encounter Visit Diagnoses Not on filedocumented in this encounter Care Teams Punch Machine Hand Relationship Specialty Start Date End Date Ron Peterson MD PCP - General Family Medicine 12/31/22 Ryan Ruiz MD [address] [address] PCP - [employer] 05/05/24 documented as of this encounter
--- OUTSIDE RECORDS SUMMARY | 2025-02-19 09:53 | XMS_ITS | Encounter Summary ---
Author Organization [facility] Address [address] [facility] [place] [address] Care Team Providers Care Daub Color Mixer Name Role Phone Ron Peterson MD Primary Care Provider [phone] Ryan Ruiz MD Unavailable [phone] Encounter Details Date Type Department Care Team (Late Contact Info) Description 01/10/2025 Abstract [facility] [address] [place] [phone] Unallocated, Noms MD Mc [address] [place] [address] Social History Tobacco Use Types Packs/Day Years [...] AM EST Office Visit [facility] [address] [facility] [place] [address] Laura Jones PA [address] [facility] [place] [address] documented as of this encounter Visit Diagnoses Not on filedocumented in this encounter Care Teams Daub Color Mixer Relationship Specialty Start Date End Date Ron Peterson MD PCP - General Family Medicine 12/31/22 Ryan Ruiz MD [address] [address] PCP - [employer] 05/05/24 documented as of this encounter
--- OUTSIDE RECORDS SUMMARY | 2025-02-19 09:55 | XMS_ITS | CCD ---
Author Organization [facility] CliniSynh Care Team Providers Care Fitter Tacker Name Role Phone DIONY Velazquez, DR DOBBS [...] Unavailable Rinku Peterson MD Primary Care Provider [phone] Ryan Ruiz MD Unavailable Rinku Peterson MD Primary Care Provider [phone] RYAN RUIZ Attending Unavailable JEFFERY DOE Attending Unavailable TIFFANIE VILLANUEVA Referring Unavailable THEO LEY Attending Unavailable AMBERLY GALVIN Attending Unavailable TIFFANIE VILLANUEVA Referring Unavailable AMBERLY GALVIN Attending Unavailable TIFFANIE VILLANUEVA Referring Unavailable AMBERLY GALVIN Attending Unavailable TIFFANIE VILLANUEVA Referring Unavailable AMBERLY GALVIN Attending Unavailable TIFFANIE VILLANUEVA Referring Unavailable JORGE, AMBERLY Attending Unavailable VILLANUEVA, TIFFANIE Estevez Referring Unavailable JORGE, AMBERLY Attending Unavailable VILLANUEVA, TIFFANIE Estevez Referring Unavailable DWAYNE CHAMBERLAIN Attending Unavailable JORGE, AMBERLY Attending Unavailable VILLANUEVA, TIFFANIE Estevez Referring Unavailable RYAN RUIZ Attending Unavailable STEPHANIE, ROBERT Referring Unavailable STEPHANIE, ROBERT Referring Unavailable STEPHANIE, ROBERT Referring Unavailable STEPHANIE, ROBERT Referring Unavailable ELTAHAWY, EHAB Attending Unavailable STEPHANIE, ROBERT Referring Unavailable STEPHANIE, ROBERT Referring Unavailable STEPHANIE, ROBERT Referring Unavailable STEPHANIE, ROBERT Referring Unavailable STEPHANIE, ROBERT Referring Unavailable STEPHANIE, ROBERT Referring Unavailable STEPHANIE, ROBERT Referring Unavailable Allergies Allergy Classification Reported Allergen(s) Allergy Type Date of Onset Reaction(s) Facility (1 source) Sulfonamides (Antibiotic) Drug allergy (disorder) 09-01-19 21 [facility] Repository (1 source) Sulfamethoxazole / Trimethoprim Drug Allergy NAILS TURNED PURPLE ENDOTRONIX Other (20 sources) Ciprofloxacin; 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: [CIPROFLOXACIN] Drug Allergy 11-24-19 24 [facility] (20 sources) levoFLOXacin; 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: [LEVOFLOXACIN] Drug Allergy 11-24-19 24 [facility] (20 sources) Sulfacetamide Drug Allergy 01-01-20 23 [facility] (20 sources) Sulfonamides (Antibiotic) Drug Allergy 07-06-19 14 Unknown [facility] (1 source) Sulfonamides (Antibiotic); 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: [SULFA (SULFONAMIDE ANTIBIOTICS)] Propensity to adverse reactions to drug (disorder) 12-03-19 23 [facility] Repository Medications Current Medications Medication Drug Class(es) [...] extended release oral tablet (20 sources) beta-Adrenergic Lucretia Start: 08-25-2024 take 1 tablet by mouth [...] tablet (20 sources) Serotonin Reuptake Inhibitor Start: 10-19-2024 take 1 tablet by mouth once daily sertraline (Zoloft) 50 MG tablet Indications: Anxiety disorder, unspecified type Take 1 tablet (50 mg) by mouth Daily 90 tablet 3 10/19/2024 Active Start: 11-30-2023 [facility] daily sertraline (Zoloft) 50 MG tablet [...] (1 source) take 2 tablets by mo [facility] once daily Vitamin D-3 1000 UNIT 2 [...] coronary artery; 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: [Atherosclerotic heart disease of [place] coronary artery without angina pectoris] Onset: 03-08-2024 03-08-2024 Chronic Disorders of lipid metabolism (20 sources) Mixed hyperlipidemia; 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: [Mixed hyperlipidemia] Onset: 10-29-2023 12-03-2023 Chronic E Codes: Fall (2 sources) Fall in home; 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: [Unspecified fall, sequela] 01-15-2025 Episodic Essential hypertension (20 sources) Essential hypertension; 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: [...] Onset: 08-25-2022 Chronic Other aftercare (1 source) [facility] (current) use of anticoagulants; 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: [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 USE ANTICOAGULANTS] Onset: 08-18-2022 Episodic Other aftercare (1 source) Other jail (current) drug therapy; 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: [OTH 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 CURRENT DRUG THERAPY] Onset: 08-18-2022 Episodic Other bone disease and musculoskeletal deformities (1 source) Other specified disorders of bone density and structure, multiple sites; 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: [OTH D/O BONE DENSITY STRUCT MX SITE] Onset: 08-28-2022 Episodic Other connective tissue disease (2 sources) Tendonitis of left wrist; 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: [Other enthesopathies, not elsewhere classified] 01-15-2025 Episodic Other endocrine disorders (20 sources) Mass [...] 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: [Patient encounter status] Onset: 02-09-2022 Episodic Other upper respiratory infections [...] Date Documented Da te Episodic/Chronic Cardiac dysrhythmias (7 sources) Palpitations; 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: [PALPITATIONS] Onset: 08-16-2022 Episodic Fluid and electrolyte disorders (20 sources) Hypokalemia; 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: [Hypokalemia] Onset: 08-18-2022 12-03-2023 Episodic Fracture of upper limb (20 sources) Closed fracture of distal end of radius; 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: [Other intraarticular fracture of lower end of left radius, initial encounter for closed fracture] Onset: 05-09-2024 05-09-2024 Episodic Other bone disease and musculoskeletal deformities [...] in left wrist] Onset: 05-09-2024 05-09-2024 Episodic Residual codes; unclassified (1 source) Family history of malignant neoplasm of prostate; 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: [FAMILY HX MALIG NEOPLASM PROSTATE] Onset: 02-11-2022 Episodic Unclassified (1 source) Contact with and (suspected) exposure to covid-19 Z20.822 Viral infection (2 sources) COVID-19; 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: [COVID-19] Onset: 04-01-2022 Results Test Name Value Interpretation Reference Range Facility Orders Onlyon 11-19-2024 Orders Only [id number] Sharri Cooney 1950 F Date Provider Department Center 11/19/2024 241-[facility] CARD [facility] No family history on file Normal [facility] Office Visiton 07-27-2024 Follow-up visit [id number] Sharri Cooney 1950 F Date Provider Department Center 07/27/2024 271-PIERCE, EHAB CARD [facility] No family history on file Level of Service:15517 PA OFFICE/OUTPATIENT ESTABLISHED MOD MDM 30 MIN Normal [facility] IGP,APTIMA HPV,AGE GDLNon AGE GDLN ACOG TESTING Note . [facility] Comment on above: TESTS RESULT FLAG UN ITS REF RANGE LAB Clinician Provided Cytology Information Source.............Cervix;Endocervix No. of containers..01 ThinPrep Vial Age Algo ACOG Rayna... Note 01 <21 or >65 or no age provided FLAG LEGEND: L-Low Normal,H-High Normal,LL-Alert Low,HH-Alert High <-Panic Low,>-Panic High,A-Abnormal,AA-Critical Abnormal Performed at: 01 =G [facility] [address] [place] [address] Prabha Vizcarra MD, PAP IG (IMAGE GUIDED) Note . [facility] Comment on above: TESTS RESULT FLAG U NITS REF RANGE LAB DIAGNOSIS: 02 NEGATIVE FOR INTRAEPITHELIAL LESION OR MALIGNANCY. REACTIVE CELLULAR CHANGES AND/OR REPAIR ARE PRESENT. CELLULAR CHANGES ASSOCIATED WITH ATROPHY ARE PRESENT. Specimen adequacy: 02 Satisfactory for evaluation. Endocervical component may not be distinguished in cases of atrophy. Performed by: 02 Will Aaron, Technical Proposal Writer (ASCP) Electronically si... 02 Monique Loyd MD, [...] <-Panic Low,>-Panic High,A-Abnormal,AA-Critical Abnormal Performed at: [address] [id number] Prabha Vizcarra MD, Performed at: = - [facility] [id number] Truck Bench Mechanic: Prabha Vizcarra MD, Phone: [phone] Performed at: [facility] [address] [id number] Truck Bench Mechanic: Prabha Vizcarra MD, Phone: [phone] BRUSH-SPATULA CERVIX ENDOCERVIX [facility] e ALL LIPID PROFILE (FASTING)o n 03-09-2024 CHOL HDL RATIO 2.4 [facility] Comment on above: 3.3 - 4.4 LOW RISK 4.4 - 7.1 AVERAGE RISK 7.1 - 11.0 MODERATE RISK >11.0 HIGH RISK Cholesterol [Mass/Vol] 154 mg/dL NINF - 200 mg/dL [facility] Cholesterol in HDL [Mass/Vol] 63 mg/dL High 40 - 60 mg/dL [facility] Comment on above: > or =60 mg/dl - LOW CARDIOVASCULAR RISK <40 mg/dl - HIGH CARDIOVASCULAR RISK Interpretation and review of laboratory results Abnormal [facility] re Magnesium [Mass/Vol] 81.0 mg/dL [facility] Comment on above: <100 mg/dl OPTIMAL 100-129 mg/dl NEAR OR ABOVE OPTIMAL 130-159 mg/dl BORDERLINE HIGH 160-189 mg/dl HIGH >190 mg/dl VERY HIGH Magnesium [Mass/Vol] 10.4 mg/dL [facility] Triglyceride [Mass/Vol] 52 mg/dL NINF - 150 mg/dL [facility] [employer] [facility] COVID/FLU RT-PCRon 3 SARS-CoV-2 (COVID-19) RNA VERONICA+probe Ql (Unsp spec) Positive ENDOTRONIX Other COVID/FLU RT-PCR Negative [facility] [employer] Other SGOTon 10-23-2022 AST [Catalytic activity/Vol] 45 U/L Critically high 15-37 [facility] Comment on above: Performed By: #### A LT, AST #### [facility] [address] [place] [address] Dr. Fred Jackson [facility] 10-23-2022 ALT [Catalytic activity/Vol] 48 U/L Normal 14-59 [facility] Comment on above: Performed By: #### A LT, AST #### [facility] [address] [place] [address] Dr. Fred Jackson [facility] 09-10-2022 AST [Catalytic activity/Vol] 40 U/L Critically high 15-37 [facility] Comment on above: Performed By: #### A LT, AST #### [facility] [address] [place] [address] Dr. Fred Jackson [facility] 09-10-2022 ALT [Catalytic activity/Vol] 52 U/L Normal 14-59 [facility] Comment on above: Performed By: #### A LT, AST #### [facility] [address] [place] [address] Dr. Fred Jackson DXA Skeletal system Views fo r bone densityon 08-25-2022 osteopenia [facility] Rad[facility] Study observation (narrative) [facility] XR DEXA BONE DENSITYon 08-25 XR DEXA BONE DENSITY DEXA Bone Density Study CLINICAL: Evaluate bone mineral density. Postmenopausal COMPARISON: FINDINGS: The bone density study was assessed by dual-energy x-ray absorptiometry with the [employer] scanner. The test results are expressed in [...] RAFIQ SEALS Date: 2022-08-25 09:50 Normal [facility] BNPon 08-16-2022 Natriuretic peptide B (Bld) [Mass/Vol] 87.0 pg/mL Normal <=900.0 [facility] Comment on above: Performed By: #### T SH, CMP, BNP, CMADM ####[facility] [address] [address]Dr. Shivandana Jackson CARDIAC JASSI ADMITon 023 CK [Catalytic activity/Vol] 152 U/L Normal 26-192 [facility] Comment on above: Performed By: #### T SH, CMP, BNP, CMADM ####[facility] [address] [address]Dr. Fred Jackson CK.MB [Mass/Vol] 2.96 ng/mL Normal <=3.60 The [facility] Comment on above: Performed By: #### T SH, CMP, BNP, CMADM ####[facility] [address] [address]Dr. Fred Jackson HSTROP 6.1 pg/mL Normal 4.0-51.3 [facility] Comment on above: Result Comment: CUT- OFF POINTS HAVE BEEN ESTABLISHED BASED ON THE FOURTH UNIVERSAL DEFINITIONS OF MYOCARDIAL INFARCTION. THE UPPER REFERENCE LIMIT (URL) OF TROPONIN, DEFINED THE 99TH PERCENTILE OF cTnI DISTRIBUTION IN A REFERENCE POPULATION, HAS BEEN CONFIRMED THE DECISION THRESHOLD FOR [place] DIAGNOSIS. Performed By: #### T SH, CMP, BNP, CMADM ####[facility] [address] [address]Dr. Fred Jackson ANGELI 80 ng/mL Normal 9-82 [facility] Comment on above: Performed By: #### T SH, CMP, BNP, CMADM ####[facility] [address] [address]Dr. Fred Manuel CBC AUTO DIFFon 08-16-2022 BASO # 0.1 103/ul Normal 0.0-0.1 [facility] Comment on above: Performed By: #### C BC #### [facility] [address] [address] [address] Fred Jackson Basophils/100 WBC (Bld) 1.4 % Normal 0.2-2.0 [facility] Comment on above: Performed By: #### C BC #### [facility] [address] [address] [address] Fred Jackson EO # 0.3 103/ul Normal 0.0-0.7 [facility] Comment on above: Performed By: #### C BC #### [facility] [address] [address] [address] Fred Jackson Eosinophils/100 WBC (Bld) 3.1 % Normal 0.9-7.0 [facility] Comment on above: Performed By: #### C BC #### [facility] [address] [address] [address] Fred Jackson Erythrocyte distribution width (RBC) [Ratio] 12.0 % Normal 11.0-15.0 [facility] Comment on above: Performed By: #### C BC #### [facility] [address] [address] [address] Fred Jackson Hematocrit (Bld) [Volume fraction] 40.5 % Normal 36.0-48.0 [facility] Comment on above: Performed By: #### C BC #### [facility] [address] [address] [address] Fred Jackson Hemoglobin (Bld) [Mass/Vol] 13.8 g/dL Normal 12.0-16.0 [facility] Comment on above: Performed By: #### C BC #### [facility] [address] [address] [address] Fred Jackson IG # 0.06 10e3/ul Critically high 0.00-0.03 [facility] Comment on above: Performed By: #### C BC #### [facility] [address] [address] [address] Fred Jackson IG % 0.6 % Critically high 0.0-0.5 The [facility] Comment on above: Performed By: #### C BC #### [facility] [address] [place] [address] Dr. Fred Jackson LYMPH # 3.8 103/ul Normal 1.2-3.8 [facility] Comment on above: Performed By: #### C BC #### [facility] [address] [place] [address] Dr. Fred Jackson Lymphocytes/100 WBC (Bld) 36.6 % Normal 20.5-60.0 [facility] Comment on above: Performed By: #### C BC #### [facility] [address] [place] [address] Dr. Fred Jackson MANUAL DIFF REQ NO Normal [facility] Comment on above: Performed By: #### C BC #### [facility] [address] [place] [address] Dr. Fred Jackson MCH (RBC) [Entitic mass] 31.2 pg Normal 26.7-34.0 [facility] Comment on above: Performed By: #### C BC #### [facility] [address] [place] [address] Dr. Fred Jackson MCHC (RBC) [Mass/Vol] 34.1 g/dL Normal 29.9-35.2 [facility] Comment on above: Performed By: #### C BC #### [facility] [address] [place] [address] Dr. Fred Jackson MCV (RBC) [Entitic vol] 91.6 fL Normal 81.0-99.0 [facility] Comment on above: Performed By: #### C BC #### [facility] [address] [place] [address] Dr. Fred Jackson MONO # 1.2 103/ul Critically high 0.3-0.8 The [facility] Comment on above: Performed By: #### C BC #### [facility] [address] [place] [address] Dr. Fred Jackson Monocytes/100 WBC (Bld) 11.3 % Normal 1.7-12.0 [facility] Comment on above: Performed By: #### C BC #### [facility] [address] [place], [place] [id number] Dr. Fred Jackson NEUT # 4.9 103/ul Normal 1.4-6.5 [facility] Comment on above: Performed By: #### C BC #### [facility] [address] [address] [address] Fred Jackson Neutrophils/100 WBC (Bld) 47.0 % Normal 43.0-75.0 [facility] Comment on above: Performed By: #### C BC #### [facility] [address] [address] [address] Fred Jackson Platelet mean volume (Bld) [Entitic vol] 8.9 fL Critically low 9.5-13.5 [facility] Comment on above: Performed By: #### C BC #### [facility] [address] [place] [address] Dr. Fred Jackson PLT 404 103/ul Normal 150-450 [facility] Comment on above: Performed By: #### C BC #### [facility] [address] [address] [address] Fred Jackson RBC 4.42 106/ul Normal 4.20-5.40 [facility] Comment on above: Performed By: #### C BC #### [facility] [address] [address] [address] Fred Jackson WBC 10.3 103/ul Normal 4.0-11.0 [facility] Comment on above: Performed By: #### C BC #### [facility] [address] [place] [address] Dr. Fred Jackson PROF 14(COMP METB)on 023 Albumin [Mass/Vol] 4.3 g/dL Normal 3.4-5.0 [facility] Comment on above: Performed By: #### T SH, CMP, BNP, CMADM ####[facility] [address] [address]Dr. Fred Jackson Albumin/Globulin [Mass ratio] 1.2 {ratio} Normal [facility] Comment on above: Performed By: #### T SH, CMP, BNP, CMADM ####[facility] [address] [address]Dr. Fred Jackson ALP [Catalytic activity/Vol] 96 U/L Normal 46-116 [facility] Comment on above: Performed By: #### T SH, CMP, BNP, CMADM ####[facility] [address] [place] [address]Dr. Fred Jackson ALT [Catalytic activity/Vol] 34 U/L Normal 14-59 The [facility] Comment on above: Performed By: #### T SH, CMP, BNP, CMADM ####[facility] [address] [place] [address]Dr. Fred Jackson Anion gap [Moles/Vol] 16.6 mmol/L Normal [facility] Comment on above: Performed By: #### T SH, CMP, BNP, CMADM ####[facility] [address] [place] [address]Dr. Fred Jackson AST [Catalytic activity/Vol] 39 U/L Critically high 15-37 [facility] Comment on above: Performed By: #### T SH, CMP, BNP, CMADM ####[facility] [address] [address]Dr. Fred Jackson Bilirubin [Mass/Vol] 0.8 mg/dL Normal 0.2-1.0 [facility] Comment on above: Performed By: #### T SH, CMP, BNP, CMADM ####[facility] [address] [place] [address]Dr. Fred Jackson Calcium [Mass/Vol] 10.1 mg/dL Normal 8.5-10.1 [facility] Comment on above: Performed By: #### T SH, CMP, BNP, CMADM ####[facility] [address] [address]Dr. Fred Jackson Chloride [Moles/Vol] 91 mmol/L Critically low 98-107 [facility] Comment on above: Performed By: #### T SH, CMP, BNP, CMADM ####[facility] [address] [place] [address]Dr. Fred Jackson CO2 [Moles/Vol] 25.5 mmol/L Normal 21.0-32.0 [facility] Comment on above: Performed By: #### T SH, CMP, BNP, CMADM ####[facility] [address] [place], [place] [address]Dr. Fred Jackson Creatinine [Mass/Vol] 0.95 mg/dL Normal 0.55-1.02 [facility] Comment on above: Performed By: #### T SH, CMP, BNP, CMADM ####[facility] [address] [place], [place] [address]Dr. Fred Jackson EGFR-AF WALLISIAN >60 Normal >=60 [facility] Comment on above: Performed By: #### T SH, CMP, BNP, CMADM ####[facility] [address] [place], [place] [address]Dr. Fred Jackson EGFR-NON AF WALLISIAN 58 mL/min/1.73m2 Critically low >=60 [facility] Comment on above: Performed By: #### T SH, CMP, BNP, CMADM ####[facility] [address] [place], [place] [address]Dr. Fred Jackson Globulin (S) [Mass/Vol] 3.6 g/dL Normal [facility] Comment on above: Performed By: #### T SH, CMP, BNP, CMADM ####[facility] [address] [place] [address]Dr. Fred Jackson Glucose [Mass/Vol] 116 mg/dL Critically high 74-[address] [facility] Comment on above: Performed By: #### T SH, CMP, BNP, CMADM ####[facility] [address] [place], [place] [address]Dr. Fred Jackson Potassium [Moles/Vol] 3.1 mmol/L Critically low 3.5-5.1 [facility] Comment on above: Performed By: #### T SH, CMP, BNP, CMADM ####[facility] [address] [place], [place] [address]Dr. Fred Jackson Protein [Mass/Vol] 7.9 g/dL Normal 6.4-8.2 [facility] Comment on above: Performed By: #### T SH, CMP, BNP, CMADM ####[facility] [address] [place] [address]Dr. Fred Jackson Sodium [Moles/Vol] 130 mmol/L Critically low 136-145 Th e [facility] Comment on above: Performed By: #### T SH, CMP, BNP, CMADM ####[facility] [address] [place] [address]Dr. Fred Jackson Urea nitrogen [Mass/Vol] 17.0 mg/dL Normal 7.0-18.0 [facility] Comment on above: Performed By: #### T SH, CMP, BNP, CMADM ####[facility] [address] [place], [place] [address]Dr. Fred Jackson Urea nitrogen/Creatinin e [Mass ratio] 17.9 mg/mg Normal [facility] Comment on above: Performed By: #### T SH, CMP, BNP, CMADM ####[facility] [address] [place], [place] [address]Dr. Fred Jackson PROTIMEon 08-16-2022 INR Coag (PPP) [Relative time] 1.01 {INR} Normal [facility] Comment on above: Performed By: #### P TT, PT ####[facility] [address] [place], [place] [address]Dr. Fred Jackson INR GUIDELINES SEE BELOW Normal [facility] Comment on above: Result Comment: DOTTY RED INR: 2.0 - 3.0 CONDITIONS NOT LISTED BELOW 2.5 - 3.5 FOR PROSTHETIC HEART VALVE REPLACEMENT 2.5 - 3.5 RECURRENT THROMBOSIS Performed By: #### P TT, PT ####[facility] [address] [place], [place] [address]Dr. Fred Jackson PT Coag (PPP) [Time] 10.7 s Normal 9.0-11.6 [facility] Comment on above: Performed By: #### P TT, PT ####[facility] [address] [place], [place] [address]Dr. Fred Jackson PTTon 08-16-2022 aPTT Coag (Bld) [Time] 33.9 s Normal 22.3-36.2 The [facility] Comment on above: Performed By: #### P TT, PT ####[facility] [address] [place], [place] [address]GaDr. Fred Jackson TROPONIN, HIGH SENSITIVITYon 08-16-2022 HSTROP 15.1 pg/mL Normal 4.0-51.3 The [facility] Comment on above: Result Comment: CUT- OFF POINTS HAVE BEEN ESTABLISHED BASED ON THE FOURTH UNIVERSAL DEFINITIONS OF MYOCARDIAL INFARCTION. THE UPPER REFERENCE LIMIT (URL) OF TROPONIN, DEFINED THE 99TH PERCENTILE OF cTnI DISTRIBUTION IN A REFERENCE POPULATION, HAS BEEN CONFIRMED THE DECISION THRESHOLD FOR [place] DIAGNOSIS. Performed By: #### H STROPN #### [facility] [address] [place], [place] [address] Dr. Fred Jackson TSHon 08-16-2022 TSH 4.364 uIU/mL Critically high 0.358-3.740 The [facility] Comment on above: Performed By: #### T SH, CMP, BNP, CMADM ####[facility] [address] [place], [place] [address]OfCaroilne Jackson XR CHEST 1 Von 08-16-2022 XR [...] DALI MYERS Date: 2022-08-16 00:02 Normal [facility] Covid-19 PCR (CVDTBH)on 03-06 SARS-CoV-2 (COVID-19) RNA VERONICA+probe Ql (Unsp spec) Detected Critically abnormal NOT DETECTED The [facility] Comment on above: Result Comment: This test is not yet approved or cleared by the [place] FDA. When there are no FDA-approved or cleared tests available, and other criteria are met, FDA can make tests available under an emergency access mechanism called an Emergency Use Authorization (EUA). The EUA for this test is supported by the [place] of Health and Human Service's (HHS's) declaration [...] longer be used). Performed By: #### [facility] ####[facility] [id number] [place], [place] [address]Ig. Fred Jackson US CAROTID ART BILon 022 CAROTID ART JASMEET [...] by: TIFFANIE LEON Date: 2022-03-12 14:51 Normal [facility] MG MAMM SCREEN 3D JASMEET CADon 02-09-2022 MG MAMM SCREEN 3D JASMEET CAD Patient: SHARRI COONEY Exam Date: 02/09/2022 : 1950 Gender:F Ordering : DR RINKU PETERSON . Admission #: [id number] Family : Order #: [id number] CLICK HERE TO VIEW EXAM RADIOLOGY REPORT [...] prostate cancer at age 60. LOCATION: [facility] BREAST COMPOSITION: Heterogeneously dense,which may obscure [...] MD on 02/09/2022 at 09:50 Normal [facility] Coding Summary.on 03-12-2021 Coding Summary. [id number] Gh0bWw+PGhlYWQ+PE1FV YNaB97mhCApmZ7YB1gAZ F2IUBVUYBCMON0MBW9ki KB2MXtdX2WptfDa VuozeTWaMM17OTj0UKZ9 lJoxEKtcoU8qlNMeX2b3 HsOyUG29tN07GScwDMEc HaB1XeFymcemvJEl A5xuYpYyiFDeQel+PHRh YmxlIHdpZHRoPScxMDAl QlYkvGkkUM8yRg5jCDCv LWNvbGxhcHNlOiBj g7irWNQkRJrkSY2ziVjd L7UnmYJ2XSMod6m9Rq63 dHI+EZSbFPX2lHzpDSlb f859IvBuj1ahWJN2 yKIkAYnxJTZ7F57uq5O3 RMGnMUNnAKP8mFA0nE4x cNdzlzryU6VxnPChXqK8 VUX2tTYmxE5pgShj lhvpoN9mPmc+F54VKZ7H KYWSEB3UByr6T2ApFfgi dHI+AG33ZLXgLT19lPKy gOFaq1gxvGs1IjHx YSPyLYZ3rDgqLCzcv8Vb OBKtO64ffYKbg3M8PTAv uOfxiDVeFrGirJQ9cG5v TBhyjxdom0ghbpun Ulnue3uyqx87qN22E83h LKzvXVAzNUY2CPAsIPVn aAalfm8obH3kPa8+IDxj a4oce9eqmMj1ZhFg TQVenhInvXulIFY2c8Ob Lv22Z8TtyMxgz2BrMhr3 yu79hVHad0Y6tJR6SJhr DGNeuW7tFXepZeH6 JZOqMiOgxR75zKDxCRaw Cm4laGhxpLocLS8qJQDx qzodDQDbkO0gTKFtzXVa iMqbUK9pDIEunswp r456XfVnGQK1ZNIouFRd M5GwrE9dFhPkEIQfGBMl I6XipTMpHKsyN695MBiw EhU6TPXauzOzI6Yp NTOljIbbOnN1r6J9Kz9F o6DwfhvaMDQ0BSnjFUU9 EqM4NjSxYdC4Y3QcAho1 ZEKbfOkcEL7bH4Vh MFYnujeviiwivMB7TOTg YHEubV95jBHrGYsoOw9r z5U0z942VBCySETneD24 Qp9jdMkkUJGkiYFA kS3uxivon2jrsltjXhJq SPVqXHf8TYf1XCMcxKrr IpNfDIO5WcE0ZBX6pPJt aQ4mqVdpjwmljX1e Oyc+Y85teL2lTAO7HKZ5 cmlnNRQvarDmSG19RG90 B5SrUruyqVRazTX+PGRp ybTleQeqUQ7tYoGo v3idl2OvQSkaZ5NcBEMf ZLcsLft4LNWmKYN0oEU8 rF2hUEVpNJjdp1F2yRI0 Z9KgwvYzri0bn4uh HFVjFGjgT30hpTBof7Z6 MPLakLN8AJGouTmqLzRe qC62Nwc+YUPocDvmr8Ar Txykt9rlb2xmiUg7 IjMwJSIgdmFsaWduPSJ0 b6EtKj98U58vLEsrAJSd GMVlOTIxVQGbgPyviy0k wS2jGk1+PGNvbCB3 fRR8mR9tCLCaYfW0NIxv E930DqKzpUFxElvbb4zt j9stiQs4NkHcWXSbkkLl rDntJCG8l1HaZv46 Z41kVAcuIKXxISCtFTSv ZBVvaNrixg3fqE5sEh6+ RY4pw7bueh28hS35hIA+ NGPsLLO5aXcxOVvm LCVrfZ4nAUhqAiA2JQMv UkAkuS40sVElWEwkJx5x dMegtPwrOA2qXKYclpch f282DxJog9umRUGi fAUyYSvaHUY8A47pa4G7 RNHeDHMpEHE6oFJ9bQ5g bGlnbjogbGVmdDsgdmVy xArsBSumMNoxX626 IHRvcDsnPlBhdGllbnQg AvSnWXj1X3FhWld3QRZy jSmoJR6vyFBfVBkzFv6y tQuxhCtjOU7yCVWe pzijf228MdOea5njRAJo xUJzQBuzTYS0T63tw3I5 JDIoPEZhUQV0pKV3nA4g bGlnbjogbGVmdDsg ixBfsZpmCDmeETuvY796 IHRvcDsnPkJpcnRoIERh bNU9ZZ08QQ02dNTyq3G8 tXN5L3IiMBUztedr kqpzwUE1LWLaULHivV61 Xa9fiSygHp3sAYHvSEE6 GJBdlHGcU2WbvK7pMdZo PFZgTQEmF1EtyDEc USxoW416JUfmGzE4UPEl zmReY5HzUIHkvKbeQeB7 a8W1Qx5UB2E3DI78ZQ36 eDPsd4V2xTX0M2Wf XRKjnyinnkrjqAS5GWUj ZBMnnK47Su1swTvnOj0o DGNjLWZ6ZQDbyFTsH4Xe yY5cChKtQGVuUZRi O6PmuJXgBHxeD988AHcf LpR2LZTeyeDyM0QwDLGk sQbzYqI8u5B1Wv2KAGv7 PH29TX81bBMnh0Z0 wHJ9F4MoNLRfbwedvqgs tSE0WGMaTPQayN21Li3m oHebNy7aXEXmOAG7LGTk aAYgR9MijA8cZnMq BBFkFTIbF4OozZHgJPxb P156CWknEiF6TZVbbbYy B8JpYWFraXbqAcV1w7C7 Yn7ZRHLxJJ85QOS3 sBA6GM57QA96X6JfNben dGFibGU+PHRhYmxlIHdp ZHRoPScxMDAlJyBzdHls BK2kWz6eJVYjLGZf bEhszDGkGhWvi9izWASg PEviEA8wjCpdB5XmaKL1 RTKds5y7Ta26F17lW8Zu dXA+UZCowJY8lDU1 vG2wNqUuOuB3EBuqC887 LxXegKYxVmyja2dcv9yj vTq5IhZ6FGPcatEmmOcb HWQ3m8UaQu00T03r IHdpZHRoPSIxNSUiIHZh eIjdzd6alD9cAz5+PGNv rHF8gXH8fR5yJtQwBhK9 KDbgY359BsEmuAJq Eecuw3qtj5hltUj2ZtJk MSRjacZunEchFHN9a1Hr Oy49Z9ZwkKpjl9VaWdo0 ey45xLXhq8Y0aFF2 W3NdTQZwiytcxQMblKtq UO3vMRLbhjjfTSAhjU0m UOXdQ3k1GmSnQlE3DRcd P9CyxsG5RHFviJBw SHvxZFT2U40gv8J8WPVf JDSwIXT8rVL7lX3wzIco bjogbGVmdDsgdmVydGlj BYxdQYliC579PYGd xLhgLYDmiU6qVAOrsJPb aTdgSJ1cUKSyomksLxPT UlJPTEwsIFNVWkFOTkU8 G4BcXkg5XEOwbCmd OC6adSWaJPenPi5ebDac lImmUB9tIJYcjuwfPMUi nK2vCMOfnQVofQekYY4j FNHmggvij091WuFc HTV8SESubURlS1FybH8d PlLcPNGkEQOgN9VjjAPi NKvhR047JXrtGvM5ULVr ecNeS5FdBGOhuNzr CkP5l1X4Rw1eBl5oXI1d HRWvVW88YU62kMElc3Y8 oWX8E9YmTRQtkjxlvxry bYK1OXYoCRMgpX45 hEQaNDbpXr1co8I7g403 THGmNKItpH14Xg0aoZrn BKWrzIRPtQ5jylhcj5lv cjogIzAwMDAwMDt0 RNo3NACfyFkaMiGpZFR1 XgH6ONH7kHUyxP9efYnn fgyhwQ5sJnm+NjggWWVh uqR2V6FpOgv4RBBh sVbrLT7zzSGsZPsmCl4c xEjcyQclFP8zUHJmxqmm WOAcaL9rYVHusRTtyYai XO1tYLNdlzrqf435 CmTdUSV8MEAeoPGmS0Gb oK1eSsJiHJMaLQLrL0Pf bTCaURryG505SKorGdR8 IBTinkAkV9XvGHAb eFagQxE6t5I0Wx1WZK2x hPZ6A1SyXbo7AHTpdMge ET6jlYDkBXuxDo0wcWkg qPkrAP7xYKJtdiyg TYRplU3yCDWcvLCxoPrh KC0rYSDbwfhjk648XhXa FUG6HPIdzSRbJ3JneS1i XpOpNMAyUFUvQ3Un tVCsCLkoN831WZbjVyR0 PMKxazIwM4QxENHeyCsk AyS4l2I2Bg4FOICaKNQe dJNyXpS2F0KiHpku dHI+CY35KXErSM14sYIy wTHzg1ezjUn4ByMdUHGv HJK1pEszYThsd5QuJTIm D68lyOHxg4H8UWRk bNiluJOmOgHwoTU5pS5g SUbmnfsjl6crvcatFkty k0wklb32vK51D97wQCsh ZHRoPSIzMCUiIHZh qSnkft0zdX5dGw5+PGNv fOA6zFV7nB8gQnMjPkW3 KKjfB241NfDwaQEpCusb r3haq7wcgBx5HmIw KHJmyyCktQvzPEB0d9Sa Ut07T28mNQddONBwXUEv LYDoTSOywIpfik3rmC0l Ii8+PO8qe7nkcs06 aO51fHY+VXPbNNJ2uGqv YAcrMKTaxS8nNYbkIfR6 YQTbQfAzxN66hXCjWOdx Yq7oyZrlwQztQE3u EQIoejlgs438DsXzv2gn NJNaxKAkMEfmWVT7C77d n9V8JCCpUHGfSLZ9jGW7 yT2mrMbnigffvHZt dDsgdmVydGljYWwtYWxp P906DOXioQvcHoOruDVa N0legdGZHD7zWgoreAC+ YFDfWHG7iVdmYEec NOWteL1uMMDtU8z6YoYs NuM1UCxbQ0FrexY4KDAr kTHgRYAvrKJSuU8yopkc l1hhabesVsCtPXBc ZYn6MKc0UTUudBvxRwNu OSK6IdR4GQE9rIYqdN5i lYpgnzfjfV2uXrr+RklO OjwvdGQ+PHRkIHN0 wCxgBXmfMHDeyS6nEJLf C6h2MfTcMvP8WRnbZ2Ze wzH6LHBlrNEwMSXqqUED mH3mcfxhs6cjfsfm FoDrQUAnEBb1LGl6NTGw pJlaBoCeIYC1WrJ7ICN4 oROomN7tvTdotmumrK9r Oyc+TVJOOjwvdGQ+ EOAbALF3bLymUEohAVUb cX0zPHJzA3q3DdYiNtN0 DLdsB0DuckW8QDOkvWIs HZSeaRNHxL2owcdy v9qdhpyxOuIcVVUnHWg9 FRq2NNLsrEjlGoVbOAU2 MuH1PBM9vWEdeN4ihGiw lzfhtJ2bWyr+UGF5 GUH9EU59RL33C1GaLyvi dGFibGU+PHRhYmxlIHdp ZHRoPScxMDAlJyBzdHls TA5aSe4dIBUdQXDf bGxh (more content not included)... Normal [facility] Physician Orderon 02-19-2021 Physician Order [id number] [id number]:127 Normal [facility] Vital Signs Date Time Vital Sign Value Performing Clinician Facility 01-15-2025 09:58-0400 Body height 152.4 cm Ryan Ruiz MD Work Phone: [facility] 01-15-2025 09:58-0400 Body mass index (BMI) [Ratio] 25.97 kg/m2 Ryan Ruiz MD Work Phone: [facility] 01-15-2025 09:58-0400 Body weight 60.33 kg Ryan Ruiz MD Work Phone: [facility] 01-15-2025 09:58-0400 Diastolic blood pressure 78 mm[Hg] Ryan Ruiz MD Work Phone: [facility] 01-15-2025 09:58-0400 Heart rate 68 /min Ryan Ruiz MD Work Phone: [facility] 01-15-2025 09:58-0400 SaO2% (BldA) [Mass fraction] 97 % Ryan Ruiz MD Work Phone: [facility] 01-15-2025 09:58-0400 Systolic blood pressure 128 mm[Hg] Ryan Ruiz MD Work Phone: [facility] 09-14-2024 10:01-0400 Body height 152.4 cm Dwayne Chamberlain TRA[employer] Work Phone: [facility] 09-14-2024 10:01-0400 Body mass index (BMI) [Ratio] 25.97 kg/m2 Dwayne Chamberlain TRA[employer] Work Phone: [facility] 09-14-2024 10:01-0400 Body weight 60.33 kg Dwayne Chamberlain TRA[employer] Work Phone: [facility] 09-14-2024 10:01-0400 Diastolic blood pressure 74 mm[Hg] Dwayne Chamberlain TRAILER MECHANIC Work Phone: [facility] 09-14-2024 10:01-0400 Heart rate 78 /min Dwayne Chamberlain TRAILER MECH[employer] Work Phone: [facility] 09-14-2024 10:01-0400 SaO2% (BldA) [Mass fraction] 96 % Dwayne Chamberlain TRAILER MECHANIC Work Phone: [facility] 09-14-2024 10:01-0400 Systolic blood pressure 128 mm[Hg] Dwayne Chamberlain TRAILER MECHANIC Work Phone: [facility] 06-05-2024 11:30-0500 Body mass index (BMI) [Ratio] 26.25 kg/m2 Theo Jil DO Work Phone: [facility] 06-05-2024 11:30-0500 Body weight 60.96 kg Theo Jil DO Work Phone: [facility] 06-05-2024 11:30-0500 Diastolic blood pressure 80 mm[Hg] Theo Jil DO Work Phone: [facility] 06-05-2024 11:30-0500 Systolic blood pressure 130 mm[Hg] Theo Ley DO Work Phone: [facility] 03-08-2024 08:25-0400 Body height 152.4 cm Ryan Ruiz MD Work Phone: [facility] 03-08-2024 08:25-0400 Body mass index (BMI) [Ratio] 25.58 kg/m2 Ryan Ruiz MD Work Phone: [facility] [employer] 03-08-2024 08:25-0400 Body weight 59.42 kg Ryan Ruiz MD Work Phone: [facility] 03-08-2024 08:25-0400 Diastolic blood pressure 80 mm[Hg] Ryan Ruiz MD Work Phone: [facility] 03-08-2024 08:25-0400 Heart rate 62 /min Ryan Ruiz MD Work Phone: [facility] 03-08-2024 08:25-0400 SaO2% (BldA) [Mass fraction] 98 % Ryan Ruiz MD Work Phone: [facility] 03-08-2024 08:25-0400 Systolic blood pressure 130 mm[Hg] Ryan Ruiz MD Work Phone: [facility] [employer] 04-22-2023 12:20-0400 Body height 153.67 cm Broderick Solomon Other [employer] Other 04-22-2023 12:20-0400 Body mass index (BMI) [Ratio] 24.58 kg/m2 Broderick Solomon Other [facility] Other 04-22-2023 12:20-0400 Body temperature 98.3 [degF] Broderick Solomon Other [facility] Other 04-22-2023 12:20-0400 Body weight 58.06 kg Broderick Solomon Other [facility] Other 04-22-2023 12:20-0400 Respiratory rate 18 /min Broderick Solomon Other [employer] [facility] [employer] Other 04-22-2023 12:20-0400 SaO2% (BldA) [Mass fraction] 96 % Broderick Solomon Other [facility] Other Encounters Encounter Date Encounter Type Care Provider Facility Start: 02-05-2025 ambulatory [facility] Start: 01-22-2025 ambulatory [facility] Start: 01-17-2025 ambulatory [facility] Start: 01-15-2025 End: 01-15-2025 Bamboo flowsheet Ryan Ruiz MD Work Phone: [facility] Start: 01-15-2025 End: 01-15-2025 Bamboo flowsheet Ryan Ruiz MD Work Phone: [facility] Start: 01-15-2025 End: 01-15-2025 Office outpatient visit 15 minutes Ryan Ruiz MD Work Phone: [facility] Comment on above: Tendonitis of wrist, left (Primary Dx); Fall at home, sequela Start: 01-15-2025 End: 01-15-2025 ambulatory RYAN RUIZ Not Available Start: 11-20-2024 ambulatory [facility] Start: 09-22-2024 ambulatory [facility] Start: 09-14-2024 End: 09-14-2024 Bamboo flowsheet Dwayne Chamberlain TRAILER MECHANIC Work Phone: [facility] Start: 09-14-2024 End: 09-14-2024 Bamboo flowsheet Dwayne Chamberlain TRAILER MECHANIC Work Phone: [facility] Start: 09-14-2024 End: 09-14-2024 ambulatory DWAYNE CHAMBERLAIN Not Available Start: 09-14-2024 End: 09-14-2024 Assay of hemosiderin, quant Dwayne Chamberlain TRAILER MECHANIC Work Phone: [facility] Start: 09-14-2024 End: 09-14-2024 Patient encounter procedure Dwayne Chamberlain TRAILER [employer] Work Phone: [facility] Comment on above: Medicare annual well ness visit, subsequent (Primary Dx); ACP (advance care planning); Encounter for screening for malignant neoplasm of colon; Paroxysmal atrial fibrillation (CMS/HCC); 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/HCC); Nonrheumatic mitral valve regurgitation; Pulmonary hypertension (CMS/HCC); Nonobstructive atherosclerosis of coronary artery (CMS/HCC); Osteopenia of multiple sites; Mixed hyperlipidemia (CMS/HCC); Routine general medical examination at health care facility Start: 07-27-2024 End: 07-27-2024 ambulatory [facility] Start: 07-25-2024 ambulatory [facility] Start: 07-25-2024 Encounter for preprocedural cardiovascular examination [facility] Start: 06-13-2024 End: 06-13-2024 Bamboo flowsheet Amberly Galvin OT Work Phone: [facility] Start: 06-13-2024 End: 06-13-2024 Bamboo flowsheet Amberly Galvin OT Work Phone: [facility] Start: 06-13-2024 End: 06-13-2024 ambulatory Amberly Galvin OT Work Phone: [facility] Comment on above: 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, init (Primary Dx); Left wrist pain Start: 06-12-2024 ambulatory [facility] Start: 06-09-2024 End: 06-09-2024 ambulatory Jeffery Connie OT Work Phone: [facility] Comment on above: 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, init (Primary Dx) Start: 06-05-2024 End: 06-05-2024 Bamboo flowsheet Theo Jil DO Work Phone: [facility] Start: 06-05-2024 End: 06-14-2024 Bamboo flowsheet Theo Whiteo DO Work Phone: [facility] Start: 06-05-2024 End: 06-14-2024 Clinisync Result Encounter Theo Whiteo DO Work Phone: [facility] Unsolicited Start: 06-05-2024 End: 06-05-2024 Patient encounter procedure Theo Whiteo DO Work Phone: [facility] Work Phone: Start: 06-05-2024 End: 06-05-2024 Periodic preventive med est patient 65yrs& older Theo Whiteo DO Work Phone: [facility] Comment on above: Well woman exam with routine gynecological exam; Breast cancer screening by mammogram; Postmenopausal state Start: 06-05-2024 End: 06-05-2024 ambulatory THEO LEY Not Available Start: 05-30-2024 End: 05-30-2024 Bamboo flowsheet Amberly Galvin OT Work Phone: [facility] Start: 05-30-2024 End: 05-30-2024 Bamboo flowsheet Amberly Galvin OT Work Phone: [facility] Start: 05-30-2024 End: 05-30-2024 ambulatory Amberly Galvin OT Work Phone: [facility] Comment on above: Left wrist pain (Erica kurtz Dx); Oth intartic fracture of lower end of left radius, init Start: 05-26-2024 End: 05-26-2024 Bamboo flowsheet Amberly Galvin OT Work Phone: [facility] Start: 05-26-2024 End: 05-26-2024 Bamboo flowsheet Ambrely Galvin OT Work Phone: [facility] Start: 05-26-2024 End: 05-26-2024 ambulatory Amberly Galvin OT Work Phone: [facility] Comment on above: Left wrist pain (Erica jerardo Dx); Oth intartic fracture of lower end of left radius, init Start: 05-24-2024 ambulatory [facility] Start: 05-23-2024 End: 05-23-2024 Bamboo WOMNgirma Galvin OT Work Phone: [facility] Start: 05-23-2024 End: 05-23-2024 Bamboo flowsheet Amberly Galvin OT Work Phone: [facility] Start: 05-23-2024 End: 05-23-2024 ambulatory Amberly Galvin OT Work Phone: [facility] Comment on above: Left wrist pain (Erica jerardo Dx); Oth intartic fracture of lower end of left radius, init Start: 05-19-2024 End: 05-19-2024 Bamboo WOMNgirma Galvin OT Work Phone: [facility] Start: 05-19-2024 End: 05-19-2024 Bamboo WOMNgirma Galvin OT Work Phone: [facility] [...] Dx); Left wrist pain Start: 05-08-2024 ambulatory [facility] Start: 04-26-2024 ambulatory [facility] Start: 03-31-2024 ambulatory [facility] Start: 03-09-2024 End: 03-09-2024 Clinisync Result [...] 03-08-2024 ambulatory RYAN RUIZ Not Available Start: 04-22-2023 End: 04-22-2023 ambulatory Broderick Solomon Other [facility] Other Start: 04-22-2023 Office outpatient vi sit 15 minutes Broderick Solomon [facility] [place] Start: 10-23-2022 [...] Treatment Date Care Activity Detail Author Start: 09-27-2027 Screening for malign ant neoplasm of colon [facility] Start: 09-14-2025 Medicare Annual Wellness (AWV) Medicare Annual Wellness (AWV) [facility] Start: 06-07-2025 End: 06-07-2025 Patient encounter procedure 06/07/2025 9:00 AM EST Office Visit [facility] [address] [place] [address] Laura Jones PA [address] [address] [facility] Start: 06-05-2025 Medicare Annual Wellness (AWV) Medicare Annual Wellness (AWV) [facility] Start: 03-05-2025 Influenza vaccination Influenza Vacc ine (#1) [facility] Start: 02-17-2025 Screening for malign ant neoplasm of breast Mammogram [facility] Start: 01-15-2025 End: 01-15-2025 Patient encounter procedure 01/15/2025 10:00 AM EDT Office Visit [facility] [address] [place] [address] Ryan Ruiz MD [address] [place] [address] Arrived [facility] Comment on above: Arrived Start: 09-14-2024 End: 09-14-2025 Noninvasive colorectal cancer [...] Visit [facility] [address] [place] [id number] Ryan Ruiz MD [address] [place] [address] [facility] Start: 06-20-2024 End: 06-20-2024 ambulatory 06/20/2024 9:00 AM EST Treatment [facility] [address] [place] [address] ArmenAmberly head, OT [address] [place] [address] [facility] Start: 06-16-2024 End: 06-16-2024 ambulatory 06/16/2024 1:00 PM EST Treatment [facility] [address] [place] [address] Jeffery Doe, OT [address] [place] [address] [facility] Start: 06-13-2024 End: 06-13-2024 [...] PT [address] [place] [address] ArmenAmberly head, OT [address] [place] [address] [facility] Start: 05-26-2024 End: 05-26-2024 ambulatory [facility] Comment on above: Arrived Start: 05-23-2024 End: 05-23-2024 ambulatory 05/23/2024 11:00 AM EST Treatment [facility] [address] [place] [address] ArmenAmberly head, OT [address] [place] [address] [facility] Start: 05-19-2024 End: 05-19-2024 ambulatory 05/19/2024 11:00 AM EST Treatment [facility] [address] [place] [address] Amberly Galvin, OT [address] [place] [address] [facility] Start: 05-16-2024 End: 05-16-2024 ambulatory 05/16/2024 2:00 PM EST Treatment [facility] [address] [place] [id number] Amberly Galvin, OT [address] [place] [address] [facility] Start: 03-08-2024 End: 03-08-2025 Lipid 1996 panel - Serum or Plasma Lipid panel Lab Routine Mixed hyperlipidemia (CMS/HCC) Expected: 03/08/2024 (Approximate), Expires: 03/08/2025 [facility] Work Phone: Comment on above: Expected: 03/08/2024 (Approximate), Expires: 03/08/2025 Start: 03-08-2024 End: 03-08-2024 Patient encounter procedure 03/08/2024 8:30 AM EDT Office Visit [facility] [address] [facility] [address] [place] [id number] Ryan Ruiz MD [address] [facility] [address] [place] [address] Arrived [facility] Comment on above: Arrived Start: 03-05-2024 Influenza vaccination Influenza Vacc ine (#1) [facility] Start: 03-27-2023 Screening for malign ant neoplasm of colon [facility] Start: 2017 Pneumococcal Vaccine : 65+ Years (1 of 1 - PCV) Pneumococcal Vaccine: 65+ Years (1 of 1 - PCV) [facility] Start: 09-03-1971 Pneumococcal Vaccine : 65+ Years (1 of 2 - PCV) Pneumococcal Vaccine: 65+ Years (1 of 2 - PCV) [facility] Start: 1958 Pneumococcal Vaccine : 65+ Years (1 of 2 - PCV) Pneumococcal Vaccine: 65+ Years (1 of 2 - PCV) [facility] Start: 1950 Screening for malign ant neoplasm of colon [facility] THIN PREP TIS PAP AN D HR HPV DNA THIN PREP TIS PAP AND HR HPV DNA Pathology and Cytology Routine Well woman exam with routine gynecological exam Ordered: 06/05/2024 [facility] Comment on above: Ordered: 06/05/2024 Immunizations Immunization Date Immunization Notes Care Provider Henry greenberg 12-19-2016 tetanus toxoid, reduced diphtheria toxoid, and acellular pertussis vaccine, adsorbed Broderick Nitta Y[facility] Other [facility] Other Payers Date Payer Category Payer Medicaid [employer] MEDICARE A DVANTAGE [id number] 2021 Medicare [employer] MEDICARE A DVANTAGE A[employer]NA MEDICARE REPLACEMENT [id number] 2021-Present [address] [place] [address] [id number] 1959 Medicare [id number] 1952 Unknown [id number] 2.16.840.1.700174.3.579.2.593 1952 Unknown [id number] 2.16.840.1.154565.3.579.2.593 1952 Unknown [id number] 2.16.840.1.837618.3.579.2.593 1952 Unknown [id number] 2.16.840.1.598193.3.579.2.593 1952 Unknown [id number] 2.16.840.1.277809.3.579.2.593 1952 Unknown [id number] 2.16.840.1.074167.3.579.2.593 1952 Unknown [id number] 2.16.840.1.793888.3.579.2.593 1952 Unknown [id number] 2.16.840.1.664579.3.579.2.1259 1952 Unknown [id number] 2.16.840.1.419497.3.579.2.1259 1952 Unknown [id number] 2.16.840.1.421009.3.579.2.1259 1952 Unknown [id number] 2.16.840.1.945939.3.579.2.1259 1952 Unknown [id number] 2.16.840.1.245294.3.579.2.1259 1952 Unknown [id number] 2.16.840.1.864028.3.579.2.1259 1952 Unknown [id number] 2.16.840.1.568260.3.579.2.1259 1952 Unknown [id number] 2.16.840.1.186752.3.579.2.125 1952 Unknown [id number] 2.16.840.1.812740.3.579.2.1259 1952 Unknown [id number] 2.16.840.1.805765.3.579.2.1259 1952 Unknown [id number] 2.16.840.1.659214.3.579.2.9 1952 Unknown [id number] 2.16.840.1.440659.3.579.2.1259 Social History Date Type Detail Facility Unknown if ever smoked [facility] Other Start: 03-08-2024 End: 09-14-2024 Sex Assigned At [facility] Other Start: 12-31-2022 Tobacco smoking status NHIS Never smoked tobacco [facility] Start: 12-31-2022 Tobacco use and exposure Smokeless tobacco non-user [facility] Start: 03-08-2024 End: 01-15-2025 Alcoholic beverage intake Lifetime non-drinker (finding) [facility] Start: 03-08-2024 End: 09-14-2024 History of Social function [facility] Start: 1950 Sex assigned at Female [facility] Start: 12-25-2023 Gender identity Identifies as female gender (finding) [facility] NEGATED: Highlighted rowStart: NINF History of tobacco use Passive smoker [facility] Clinical Notes 04-22-2023 to 01-15-2025 Ryan Ruiz MD - 01/15/2025 10:00 AM EDBharath Chamberlain NP - 09/14/2024 10:00 AM EDTPatient Joon aGlvin, OT - 06/13/2024 1:00 PM Jose Miguel Doe, OT - 06/09/2024 9:30 AM EST Note Date & Type Note Facility 01-15-2025 History of Present illness Narrative Images from the original note were not included. HPI Follow-up Additional comments: [facility] 01/03/25 dx: fall at home, left wrist sprain no med changes made discharged home Last edited by Nayeli Davison LPN on 01/15/2025 9:58 AM. Subjective Patient ID: Sharri Cooney is a 74 y.o. female who presents for Follow-up ([facility] 01/03/25 dx: fall at home, left wrist sprain no med changes made discharged home). Follow up ER visit after fall at home Pt states left wrist is feeling much better Some mild pain and swelling uses OTC tylenol and that helps Current Outpatient Medications on File Prior to [...] morning. sertraline (Zoloft) 50 MG tablet Take 1 tablet (50 mg) by mouth Daily 90 tablet 3 simvastatin (Zocor) 10 MG tablet Take 10 [...] Medical History: Diagnosis Date Guillain Jarquin syndrome (HCC) Hypertension Past Surgical History: Procedure Laterality Date BREAST SURGERY Left cyst removal BUNIONECTOMY EYE SURGERY LOOP RECORDER IMPLANT Left 11/25/2023 TUBAL LIGATION Visit Vitals Ht 5' BMI 25.97 kg/m Smoking Status Never BSA 1.6 m Review of Systems Objective Physical Exam HENT: Head: Comments: Bruise as noted Musculoskeletal: Left wrist: Swelling and tenderness present. Neurological: General: No focal deficit present. Mental Status: She is oriented to person, place, and time. Gait: Gait is intact. Assessment/Plan Diagnoses and all orders for this visit: Tendonitis of wrist, left - Ice, brace, Tylenol. No NSAIDs due to OAC Fall at home, sequela - The patient was seen today in follow up of recent hospital ER visit. All available hospital records/labs/diagnostics were reviewed and discussed with the patient. ER discharge meds were reviewed. Any changes to plan are as noted. No follow-ups on file. documented in this encounter [facility] 09-14-2024 History of Present illness Narrative Images [...] Medicine) Ryan Ruiz MD as PCP - [employer] Annual Visit Over the past 2 [...] Do you have a medical power of district attorney?: Yes Who is your medical power of district attorney?: daughter Objective : BP 128/74 Pulse [...] Expiration Date: 09/14/2025 Electronically signed by Dwayne Chamberlain NP on September 14, 2024 documented in this encounter [facility] 09-14-2024 Instructions Dwayne Chamberlain NP - 09/14/2024 10:00 AM EDT Cologuard requisition sent Bone density sent per HORSE RACETRACK MANAGER Mammogram order sent per HORSE RACETRACK MANAGER documented in this encounter [facility] 07-27-2024 Note [facility] Electrophysiology Consult Note Reason [...] or signs patient was recently seen in [facility] 08/2022 for palpitations. She was found [...] palpitations, lightness, dizziness, fatigue 08/2022 ECG by [facility]- appears to be sinus tach with PACs, [...] alcohol infrequently, no significant caffeine intake, no vcxy-fgt-vsesvja decongestions Family history: Her mother of a [...] alcohol infrequently, no significant caffeine intake, no ucak-kpd-skgwngj decongestions Family history: Her mother of a [...] and systolic functio (more content not included)... [facility] 06-13-2024 History of Present illness Narrative Occupational [...] to 3# handweight complete. T-putty for added spray machine operator strengthening complete with good toleration. Encouraged ice/ biofreeze for soreness at night. Pt verbalized understanding of all education. Treatment: Manual: STM/ DTM along the L wrist Therapeutic Exercise: light strengthening of the wrist/forearm. Therapeutic Activity: Modalities: Neuro Re-Ed: Assessment/Plan Short Term Goals: Pt will be independent with home exercise program for light strengthening and ROM at discharge. GOAL MET [facility] Goals: PRWHE Pain Score < 5/50 ( IE: 13/50) GOAL MET 3/50 PRWHE Functional Score <3/100 ( IE: 7/100 ) GOAL MET 3/100 Increase wrist ROTHMAN to at least 90% pain free at discharge. (IE: 71%) GOAL NOT MET 86.5% - progressing with HEP. Pt to increase spray machine operator strength by 10# and LP by 2# pain free at discharge. ( L hand 6# LP: 2# ) GOAL MET L spray machine operator 20# LP: 5#) Pt will be able [...] after 30 days. documented in this encounter [facility] 06-09-2024 History of Present illness Narrative Occupational [...] Last update: Updated by: Occupational Therapy Reji wrist fx Active 05/09/2024 06/09/2024 9:31 AM [...] to 3# handweight complete. T-putty for added spray machine operator strengthening complete with good toleration. Encouraged ice/ [...] progress per toleration. documented in this encounter [facility] 06-05-2024 History of Present illness Narrative Reason [...] nursing note reviewed. Exam conducted with a social organization professor present. Vitals: Estimated body mass index is [...] Theo Ley DO documented in this encounter [facility] 05-30-2024 History of Present illness Narrative Occupational [...] to 3# handweight complete. T-putty for added spray machine operator strengthening complete with good toleration. Encouraged ice/ [...] progress per toleration. documented in this encounter [facility] 05-26-2024 History of Present illness Narrative Occupational Therapy Occupational Therapy Treatment Visit Patient Name: Sharri Cooney Today's Date: 05/26/2024 Linked Episodes Type: Episode: Status: Noted: Resolved: Last update: Updated by: Occupational Therapy L wrist fx Active 05/09/2024 05/26/2024 11:02 AM Amberly Galvin OT Comments: Visit number: 11/13 Timed Code Treatment minutes: 60 Total Treatment Time: 60 Subjective Pain: 08/14. It is feeling good today. I decorated [...] to 2# handweight complete. T-putty for added spray machine operator strengthening complete with good toleration. Encouraged ice/ [...] progress per toleration. documented in this encounter [facility] 05-23-2024 History of Present illness Narrative Occupational [...] to 2# handweight complete. T-putty for added spray machine operator strengthening complete with good toleration. Trialed weightbearing [...] progress per toleration. documented in this encounter [facility] 05-19-2024 History of Present illness Narrative Occupational [...] to 2# handweight complete. T-putty for added spray machine operator strengthening complete with good toleration. Trialed weightbearing [...] progress per toleration. documented in this encounter [facility] 05-16-2024 History of Present illness Narrative Occupational [...] to 2# handweight complete. T-putty for added spray machine operator strengthening complete with good toleration. Trialed weightbearing [...] progress per toleration. documented in this encounter [facility] 05-09-2024 History of Present illness Narrative Occupational [...] deviation: 4/5. Pronation: 4/5. Supination: 4/5. L spray machine operator strength: 6# LP: 2# R spray machine operator strength: 35# LP: 9# Treatment: Education: HEP [...] for light strengthening and ROM at discharge. Senior Care Goals: PRWHE Pain Score < 5/50 ( IE: 13/50) PRWHE Functional Score <3/100 ( IE: 7/100 ) Increase wrist ROTHMAN to at least 90% pain free at discharge. (IE: 71%) Pt to increase spray machine operator strength by 10# and LP by 2# pain free at discharge. ( L hand 6# LP: 2# ) Pt will be able to use ;eft UE in light daily activities. Pt will benefit from skilled OT to address the above impairments for 2x/week for 4 weeks. I hereby deem this POC medically necessary. Please sign below. Date: documented in this encounter [facility] 03-08-2024 History of Present illness Narrative Subjective [...] for Routine F/U. documented in this encounter [facility] 04-22-2023 Evaluation note Encounter Date Diagnosis Assessment [...] see your pcp. Take tylenol as needed. ENDOTRONIX Other Evaluation note* Diagnosis Oth intartic fracture [...] [facility] Tendonitis of wrist, left- Primary Fall at home, sequela [facility] N[facility]ative - Reported* Type Description Date Medical History HTN Medical History HYPERLIPIDEMIA Medical History SHINGLES Medical History GUILLAIN-BARRE SYNDROME Medical History Afib Surgical History TUBALIGATION Surgical History EYE SURGERY Surgical History MACULAR HOLE Surgical History LUMP REMOVED FROM LEFT BREAST Surgical History bunionectomy Hospitalization History 3 CHILD BIRTHS Hospitalization History GUILLAIN-BARRE SYNDROME ENDOTRONIX Other Reason for visit Narrative* Rehabilitation - Outpatient (Routine) - Authorized Specialty Diagnoses / Procedures Referred By Nemesio cristina Referred To Contact Occupational Therapy / Physical Therapy Diagnoses Other intraarticular fracture of lower end of left radius, subsequent encounter for closed fracture with routine healing PO L Wrist Procedures PA OCCUPATIONAL THERAPY EVALUATION EVALUATION Tiffanie Villanueva MD [address] [place] [address] Phone: tel: fax: Jorge Amberly, OT [address] [place] [id number] Phone: tel: fax:[phone] Referral ID Status Reason Start Date Expiration Date V isits Requested Visits Authorized [id number] Authorized 05/09/2024 11/05/2024 99 99 [facility] Rehabilitation - Outpatient (Routine) - Closed Specialty Diagnoses / Procedures Referred By Nemesio cristina Referred To Contact Occupational Therapy / Physical Therapy Diagnoses Other intraarticular fracture of lower end of left radius, subsequent encounter for closed fracture with routine healing PO L Wrist Procedures PA OCCUPATIONAL THERAPY EVALUATION EVALUATION Tiffanie Villanueva MD [address] [place] [address] Phone: tel: fax: Jorge Amberly, OT [address] [place] [id number] Phone: tel:[phone] fax:[phone] Referral ID Status Reason Start Date Expiration Date Visits Re quested Visits Authorized [id number] Closed 05/09/2024 11/05/2024 99 99 [facility] Summary Purpose Family History No Family History Records FoundNo Family History Records FoundNo Family History Records FoundNo Family History Records Found Advance Directives No Advanced Directives Records FoundNo Advanced Directives Records FoundNo Advanced Directives Records FoundNo Advanced Directives Records Found Additional Source Comments INFORMATION SOURCE (unrecogn ized section and content) DATE CREATED AUTHOR 03/13/2021 Vinny Christy [facility] DATE CREATED AUTHOR AUTHOR'S ORGANIZ ATION 10/30/2022 [facility] DATE CREATED AUTHOR AUTHOR'S ORGANIZ ATION 01/18/2025 [facility] EPIC DATE CREATED AUTHOR AUTHOR'S ORGANIZ ATION 02/08/2025 [facility] REASON FOR VISIT (unrecogniz ed section and content) Reason Comments Well Women Visit Reason Comments Hypertension Reason Comments Medicare Annual Wellness Visit Subsequen t Reason Comments Follow-up [facility] 01/03/25 dx: fa ll at home, left wrist sprain no med changes made discharged home Care Teams (unrecognized sec tion and content) Fitter Tacker Relationship Specialty Start Date End Date Rinku Peterson MD [address] [place] [address] PCP - General Family Medicine 12/31/22 Fitter Tacker Relationship Specialty Start Date End Date Rinku Peterson MD [address] [place] [address] PCP - General Family Medicine 12/31/22 Ryan Ruiz MD [address] [address] PCP - [employer] 05/05/24 Fitter Tacker Relationship Specialty Start Date End Date Rinku Peterson MD [address] [place] [address] PCP - General Family Medicine 12/31/22 Ryan Ruiz MD [address] [facility] [address] [place] [address] PCP - [employer] 05/05/24 Fitter Tacker Relationship Specialty Start Date End Date Rinku Peterson MD [address] [place] [address] PCP - General Family Medicine 12/31/22 Ryan Ruiz MD [address] [facility] [address] [place] [address] PCP - [employer] 05/05/24 Fitter Tacker Relationship Specialty Start Date End Date Rinku Peterson MD [address] [place] [address] PCP - General Family Medicine 12/31/22 Ryan Ruiz MD [address] [address] PCP - [employer] 05/05/24 Fitter Tacker Relationship Specialty Start Date End Date Rinku Peterson MD [address] [place] [address] PCP - General Family Medicine 12/31/22 Ryan Ruiz MD [address] [address] PCP - [employer] 05/05/24 Fitter Tacker Relationship Specialty Start Date End Date Rinku Peterson MD [address] [place] [address] PCP - General Family Medicine 12/31/22 Ryan Ruiz MD [address] [address] PCP - [employer] 05/05/24 Fitter Tacker Relationship Specialty Start Date End Date Rinku Peterson MD [address] [place] [address] PCP - General Family Medicine 12/31/22 Ryan Ruiz MD [address] [facility] [address] [place] [address] PCP - [employer] 05/05/24 Fitter Tacker Relationship Specialty Start Date End Date Rinku Peterson MD [address] [facility] [place] [address] PCP - General Family Medicine 12/31/22 Fitter Tacker Relationship Specialty Start Date End Date Rinku Peterson MD [address] [facility] [place] [address] PCP - General Family Medicine 12/31/22 Fitter Tacker Relationship Specialty Start Date End Date Rinku Peterson MD [address] [facility] [place] [address] PCP - General Family Medicine 12/31/22 Fitter Tacker Relationship Specialty Start Date End Date Rinku Peterson MD [address] [facility] [place] [address] PCP - General Family Medicine 12/31/22 Ryan Ruiz MD [address] [facility] [address] [place] [address] PCP - [employer] 05/05/24 Fitter Tacker Relationship Specialty Start Date End Date Rinku Peterson MD [address] [facility] [place] [address] PCP - General Family Medicine 12/31/22 Ryan Ruiz MD [address] [facility] [place] [address] PCP - [employer] 05/05/24 Fitter Tacker Relationship Specialty Start Date End Date Rinku Peterson MD PCP - [facility] 12/31/22 Ryan Ruiz MD [address] [facility] [place] [address] PCP - [employer] 05/05/24 Fitter Tacker Relationship Specialty Start Date End Date Rinku Peterson MD PCP - [facility] 12/31/22 Ryan Ruiz MD 112 [facility] [place] [address] PCP - Aet 05/05/24 FOR RECORDS PERTAINING [...] BE BASED ON THE PRIMARY CLINICAL RECORDS. [employer] [facility]. provides no warranty or guarantee of the accuracy or completeness of information in this document.
--- NOTE | 2025-02-19 09:57 | MM_ITS ---
Patient Name: MADAN COONEY MR#: [id number] : 1950 Exam Date: 02/19/2025 Ordering Doctor: DR JUSTIN SERRA . RADIOLOGY REPORT PROCEDURE: MM TOMOSYNTHESIS SCREENING BI COMPARISON: MM TOMOSYNTHESIS SCREENING BI, 02/17/2024. MM TOMOSYNTHESIS SCREENING BI, 02/10/2023. MG MAMM SCREEN 3D JASMEET CAD, 02/09/2022. MG MAMM SCREEN JASMEET W CAD, 01/21/2015. INDICATIONS: Screening Calculator Name NCI Breast Cancer Risk Assessment Tool 5 Year Breast Cancer Risk 1.70% Lifetime Breast Cancer Risk 4.40% Personal Breast Cancer No Personal Ovarian Cancer No Treatments None Family Cancers Father with prostate cancer at age 58. LOCATION: [facility] BREAST COMPOSITION: There are scattered areas of fibroglandular density. FINDINGS: DIAGNOSTIC CATEGORY 1--NEGATIVE. RIGHT BREAST: No significant suspicious finding. LEFT BREAST: No significant suspicious finding. RECOMMENDATIONS: ROUTINE MAMMOGRAM AND CLINICAL EVALUATION IN 12 MONTHS. PLEASE NOTE: A NORMAL MAMMOGRAM DOES NOT EXCLUDE THE POSSIBILITY OF BREAST CANCER. A CLINICALLY SUSPICIOUS PALPABLE LUMP SHOULD BE BIOPSIED. Dictated by: Mode Douglas MD on 02/19/2025 at 12:44 Approved by: Mode Douglas MD on 02/19/2025 at 12:52
== END 2025-02-19 09:51 | disposition home or self-care (01) ==
LOC: MAMMO 09:51
PROVIDERS: PCP Internal Medicine; Visit Provider Obstetrics & Gynecology
DX: Z12.31 Encounter for screening mammogram for malignant neoplasm of breast (principal); Z78.0 Asymptomatic menopausal state; Z80.42 Family history of malignant neoplasm of prostate; M85.88 Other specified disorders of bone density and structure, other site
CPT/HCPCS: 77063; 77067; 77080

== ENCOUNTER 2025-06-29 16:25 | Emergency (ER) | payer MEDICARE, SELFPAY ==
[2025-06-29 16:30] VITALS: BP 173/82; PULSE 92; TEMP 36.9; O2SAT 95; BMI 26.4
--- OUTSIDE RECORDS SUMMARY | 2025-06-29 17:12 | XMS_ITS | Clinical Summary ---
Author Organization [facility] Address [address] [place] [address] Care Team Providers Care Risk Consulting Treasury Director Name Role Phone Ryan Ruiz MD Primary Care Provider [phone] Allergies Active AllergyReactionsCriticalityNoted GvgfMcegnlprHtshilfaidyviTcnlj07/22/2024 Patient states 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 VhmfkynmvdkoPteoq25/22/2024 Patient states 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 Sulfa (Sulfonamide Antibiotics)12/02/2022 Medications MedicationSigDispense QuantityRefillsLast FilledStart DateEnd DateStatus calcium carbonate 600 mg calcium (1,500 mg) tablet Take 600 mg by mouth every 12 (twelve) hours.Active cholecalciferol, vitamin D3, 50 mcg (2,000 unit) capsule Take 2,000 Units by mouth in the morning.Active sertraline (Zoloft) 50 mg tablet Take 50 mg by mouth in the morning.Active apixaban (Eliquis) 5 mg tablet Indications:Paroxysmal atrial fibrillation (CMS/HCC)Take 1 tablet (5 mg) by mouth in the morning and at bedtime. Do not start before December 01, 2023. 60 tablet 12/01/2023ctive Additional Information Patient taking differently:5 mg oral2 times daily, Reported on 02/01/2024 lisinopriL-hydrochlorothiazide 10-12.5 mg tablet Indications:Benign hypertensive heart disease without congestive heart failure Take 1 tablet by mouth once daily as directed. 90 tablet 312/11/2024Active Additional Information Patient taking differently: 0.5 tabletoral Once Daily, Reported on 07/27/2024 potassium chloride CR (Klor-Con) 10 mEq ER tablet Indications:Benign hypertensive heart disease without congestive heart failure TAKE 2 TABLETS BY MOUTH IN THE MORNING 180 tablet 5Active metoprolol succinate XL (Toprol-XL) 100 mg 24 hr tablet Indications:Benign hypertensive heart disease without congestive heart failure TAKE 1 TABLET BY MOUTH ONCE DAILY DIRECTED 90 tablet 5Active simvastatin (Zocor) 10 mg tablet Indications:Hyperlipidemia, unspecified hyperlipidemia typeTake 1 tablet (10 mg) by mouth at bedtime. 90 tablet 5Active Active Problems Patient Care Coordination No te Formatting of this note migh t be different from the original. Patient notified of abnormal stress test. Recommend coronary angiogram for further ischemic evaluation. Discussed risks vs benefits. Patient is agreeable to proceed. ProblemNoted DateDiagnosed DateLeft wrist pain05/09/2024Oth intartic fracture of lower end of left radius, init05/09/2024Nonobstructive atherosclerosis of coronary eydsia9503/08/2024bnormal stress ECG12/14/2023Osteopenia of multiple sites12/06/2023ulmonary vhutyyuietjx20/03/2024bnormal stress test12/01/2023 Benign hypertensive heart disease without congestive heart skvplsx6410/29/2023 Wcyiojnzgje82/26/8788Ehycihmfmknfko40/26/2024Mixed rtzbytljkdislt90/26/2024 Anxiety disorder, mlfvimzonso98/25/202404/trophic nyfriqkel79/28/2023 12/30/2022Mass of left adrenal glandain in female genitalia on gjiertectav25Essential meymfwzeyztt03/28/2023 Assessment & Plan (12/30/2022 10:04 AM EDT): - elevated today, she states this normally low - we will have her check her blood pressure 2-3 times a day for 1 week and send clinic the readings - continue Toprol-XL 50 mg daily, Zocor 10 mg daily, lisinopril- hydrochlorothiazide 10-12.5 mg daily Nonrheumatic mitral valve hmamounwmozhm68/ Assessment & Plan (12/30/2022 10:05 AM EDT): - history of mild regurgitation from echo 2020 - we will repeat echocardiogram to assess valvular regurgitation and LA size Atrial igdtnkbwpydj60/23/2021 Assessment & Plan (12/30/2022 10:04 AM EDT): -History of paroxysmal A-fib, recent ER visit does not look like she had A-fib - continue Eliquis 5 mg twice daily - IEM7LJ1-TOKh at least 3 for age, gender, hypertension - continue metoprolol XL 50 mg daily - in the past she was on amiodarone for short-term, converted chemically and then amiodarone was discontinued - recent ER visit she had elevated TSH Macular cyst, hole, or pseudohole of upsufo70 Encounters DateTypeDepartmentCare NuduBjizphnbxse51/21/2025 10:00 AM EDTAncillary Procedure [facility] [address] [place] [address] Awareness of ennsypjqjh26/21/2025Orders Only [facility] [address] [place] [address] Roberto Renner MD from Last 3 Months Immunizations ImmunizationAdministration DatesNext DueCovid (Pfizer) Bivalent Booster =>12 YRS 05/14/2022Tdap12/19/2016Unspecified Sars-Cov-2 Wlbdjofwkus15/12/2022,04/14/2021, 09/24/2020,2020 Social History Tobacco UseTypesPacks/DayYears UsedDateSmoking Tobacco: NeverSmokeless Tobacco: Never Tobacco Cessation:Counseling Given: Not Answered Alcohol UseStandard Drinks/WeekCommentsNot Currently0 (1 standard drink = 0.6 oz pure alcohol)UT Safety & EnvironmentAnswerDate RecordedFear of Current or Ex-PartnerNot on file08/26/2023Emotionally AbusedNot on file08/26/2023hysically AbusedNot on file08/26/2023Sexually AbusedNot on file08/26/2023hysically or Sexually AbusedNot on file08/26/2023CommentsNoSex and Gender Information ValueDate RecordedSex Assigned at BirthNot on fileLegal YgdWlgynt92/30/2022 12:39 AM EDTGender IdentityChoose not to /04/2025 9:25 PM EDTSexual OrientationChoose not to qhvsreom73/04/2025 9:25 PM EDT Last Filed Vital Signs Vital SignReadingTime TakenCommentsBlood Lrvtmwgv680/78007/27/2024 1:29 PM EST Hyiet566107/27/2024 1:29 PM ZQYAasljqtbhks39.9 ??C (98.4 ??F)11/03/2023 1:16 PM EDTRespiratory Yvgb688201/13/2024 10:45 AM EDTOxygen Jmxinxxbpc39%07/27/2024 1:29 PM ESTInhaled Oxygen Concentration--Xeiovm63.2 kg (135 lb)07/27/2024 1:29 PM EST Dzumiz071.4 cm (5')07/27/2024 1:29 PM ESTBody Mass Index26.37007/27/2024 1:29 PM EST Plan of Treatment DateTypeDepartmentCare Team (Latest Contact Info)Hcbjircnwhx56/04/2026 11:30 AM ESTOffice Visit [facility] [place] [address] [place] [address] Cecilia Peter MD [address] [facility] [place] [address] Health MaintenanceDue DateLast DoneCommentsCT Rmjoxveezwpg95/01/1953Colonoscopy 1950FOBT1952Medicare Annual Wellness (AWV)1950Sigmoidoscopy 1950epression Lxkddxeut11/01/1965Pneumococcal Vaccine: 50+ Years (1 of 2 - PCV)09/03/19713841Odaoxeoek18/01/1993Zoster Vaccines (1 of 2)2002Fall Risk Ynhbcijsk57/01/2018COVID-19 Vaccine (2024- season), 05/14/2022, 10/14/2021, Additional history existsInfluenza Vaccine (#1) 03/05/2025FIT6009/26/2024dult Jsixrac49Colorectal Cancer Luvejxheh65/25/2028FIT-DNAHIB VaccinesAged OutNo longer eligible based on patient's age to complete this topicHPV VaccinesAged OutNo longer eligible based on patient's age to complete this topicIPV Vaccines Aged OutNo longer eligible based on patient's age to complete this topic Meningococcal B VaccineAged OutNo longer eligible based on patient's age to complete this topicMeningococcal VaccineAged OutNo longer eligible based on patient's age to complete this topicRotavirus VaccinesAged OutNo longer eligible based on patient's age to complete this topic Medical Devices ImplantedTypeAreaManufacturerDevice IdentifierShelf Expiration DateModel / Serial / LotMonitor,Cardiac,Lux,Dxii+[facility] - [id number] - [id number] Implanted:Qty: 1 on 11/24/2023 by Turner Harding MD at [facility] HospitalImplantable Loop RecorderLeft: ChestChilton Medical Centerton Slofciejmi18/25/2025 [id number] / [id number] / Procedures Procedure NamePriorityDate/TimeAssociated DiagnosisCommentsCARDIAC DEVICE CHECK CHECK - RPORWVTcjpydv79/24/2025 9:53 AM EDT Awareness of heartbeats CARDIAC DEVICE CHECK - REMOTE - LOOP RECORDER (ILR)Sbfvwlv9304/24/2025 12:00 AM EDTfrom Last 3 Months Results * CARDIAC DEVICE CHECK - REMOTE - LOOP RECORDER (ILR) (04/27/2025 9:53 AM EDT) Specimen (Source)Anatomical Location / LateralityCollection Method / Volume Collection TimeReceived Time Narrative Authorizing ProviderResult TypeResult StatusPaul Mehdi MDCV IMPLANTABLE CARDIAC DEVICE PROCEDURESFinal ResultPerforming OrganizationAddressCity/State/ZIP Code Phone Number CPACS * Cardiac device check - Remote loop recorder (ILR) (04/24/2025 12:00 AM EDT) Anatomical RegionLateralityModalityOtherSpecimen (Source)Anatomical Location / LateralityCollection Method / VolumeCollection TimeReceived Time04/24/2025 Narrative Authorizing ProviderResult TypeResult StatusSamer Elroy Renner MDC IMPLANTABLE CARDIAC DEVICE PROCEDURESFinal Result from Last 3 Months Insurance Advance Directives * Full Code (Latest Code Status on File) Date ActivatedDate InactivatedComments01/13/2024 9:10 AM01/13/2024 2:55 PM Care Teams Team MemberRelationshipSpecialtyStart DateEnd Date Ryan Ruiz MD PCP - GeneralInternal Medicine01/05/24
--- OUTSIDE RECORDS SUMMARY | 2025-06-29 17:12 | XMS_ITS | Clinical Summary ---
Author Organization [facility] Address [address], [address] [place] [address] Care Team Providers Care Dispenser Operator Name Role Phone Ron Peterson MD Primary Care Provider [phone] Allergies Active AllergyReactionsCriticalityNoted DateCommentsSulfa AntibioticsOther (See Comments)Nmixwp6207/06/2013 CYANOSIS Medications MedicationSigDispense QuantityRefillsLast FilledStart DateEnd DateStatus lisinopril-hydrochlorothiazide (PRINZIDE;ZESTORETIC) 20-25 MG per tablet Take 0.5 tablets by mouth daily.Active metoprolol (LOPRESSOR) 25 MG tablet Take 25 mg by mouth 2 times daily.Active simvastatin (ZOCOR) 10 MG tablet Take 10 mg by mouth nightly.Active Cholecalciferol (VITAMIN D) 2000 UNITS CAPS capsule Take 1 capsule by mouth daily.Active Calcium Carb-Cholecalciferol (CALCIUM + D3 PO) Take 600 mg by mouth 2 times daily.Active brimonidine (ALPHAGAN) 0.2 % ophthalmic solution One drop to operative eye twice daily. 1 Bottle ctive atropine 1 % ophthalmic solution One drop to operative eye daily 1 Bottle ctive tobramycin-dexamethasone (TOBRADEX) ophthalmic ointment apply to operative eye three times daily as needed for comfort 1 Tube ctive gentamicin-prednisoLONE (PRED-G) 0.3-1 % ophthalmic drops Apply one drop to operative eye 4 times daily 1 Bottle ctive Active Problems ProblemNoted DateDiagnosed DateMacular cyst, hole, or pseudohole of retina 07/07/2013 Social History Tobacco UseTypesPacks/DayYears UsedDateSmoking Tobacco: NeverAlcohol UseStandard Drinks/WeekCommentsNo0 (1 standard drink = 0.6 oz pure alcohol)Comments NoSex and Gender InformationValueDate RecordedSex Assigned at BirthNot on file Legal LurWlsfdm20/10/2013 11:57 AM ESTGender IdentityNot on fileSexual OrientationNot on file Last Filed Vital Signs Vital SignReadingTime TakenCommentsBlood Lfjchbup588/64007/07/2013 12:00 PM EST Wzajz0168/03/2014 12:00 PM RAKEoaxyxidsio20.2 ??C (97.2 ??F)07/07/2013 11:45 AM ESTRespiratory Mtyq592107/07/2013 12:00 PM ESTOxygen Xtcxfpgdjr56%07/07/2013 12:00 PM ESTInhaled Oxygen Concentration--Nbuleh29 kg (130 lb)07/06/2013 2:41 PM EST Jgzqgk921.9 cm (5' 1 )07/06/2013 2:41 PM ESTBody Mass Index24.56007/06/2013 2:41 PM EST Plan of Treatment Not on file Care Teams Team MemberRelationshipSpecialtyStart DateEnd Ron Peterson MD [address] [place] [address] PCP - General07/06/13
--- OUTSIDE RECORDS SUMMARY | 2025-06-29 17:12 | XMS_ITS | Clinical Summary ---
Author Organization [facility] Address [id number] [place] [address] Care Team Providers Care Chief Communications Officer Name Role Phone Ron Peterson MD Primary Care Provider [phone] Family History Medical HistoryRelationNameCommentsBreast cancerNeg Hx Social History Tobacco UseTypesPacks/DayYears UsedDateSmoking Tobacco: Never AssessedChildcare AnswerDate JpyeyxupZduswcvtsAlcjdph33/12/2019EmploymentAnswerDate Recorded OfpecexvyoJpcmvet23/12/2019Purpose - LifeAnswerDate RecordedPurpose and direction in rfilPrabnim71/11/2021CommentsUnknownSex and Gender InformationValueDate RecordedSex Assigned at BirthNot on fileLegal SexFemale 02/07/2015 11:42 AM EDTGender IdentityNot on fileSexual OrientationNot on file Plan of Treatment Health MaintenanceDue DateLast DoneCommentsDepression Oylnqowcj24/01/1965Tobacco Bckfrbkid41/01/1965Adult BMI Baujbwflm73/01/1971DTaP,Tdap and Td Vaccines (1 - Tdap)09/03/1971Zoster (Shingles) Vaccine (1 of 2)2002Fall Risk Screening 2017Influenza Uezqhtj9703/05/2025RSV ( or age 60+ yrs) (1 - 1-dose 75+ series)09/03/2027 Medical Devices Not on file Insurance Care Teams Team MemberRelationshipSpecialtyStart DateEnd Ron Peterson MD [facility]01/08/17
--- OUTSIDE RECORDS SUMMARY | 2025-06-29 17:12 | XMS_ITS | Patient Health Record ---
Author Organization [facility] Address [address] [place], [place] [address] Care Team Providers Care Alley Cleaner Name Role Phone Maggi Haddad Unavailable [phone] Allergies Allergen (clinical drug ingredient) Drug/Non Drug Allergy documented on EMR Reaction Allergy Type Onset Date Status Substance with sulfonamide s tructure and antibacterial mechanism of action (substance) Sulfa Antibiotics Unknown Drug Allergy Active Reason For Referral No Information Medications Medication SIG (Take, Route, Frequency, Duration) Notes Start Date End Date Status Hair Skin & Nails Advanced - Tablet 1 tablet Ora lly Once a day ActiveVitamin C 100 MG Tablet1 tablet Orally Once a dayActiveLisinopril- hydroCHLOROthiazide 10-12.5 MG TabletTAKE 1 TABLET BY MOUTH ONCE DAILY Oral; Duration: 90 DaysActiveCalcium 600 MG Tablet1 tablet with meals Orally Twice a dayActiveVitamin D 10 MCG/ML Liquidas directed OrallyActiveCranberry 500 MG Capsule1 capsule Orally Once a dayActivePotassium Chloride ER 10 MEQ Tablet Extended ReleaseTAKE 1 TABLET BY MOUTH ONCE DAILY Oral; Duration: 90 DaysActive Eliquis 5 MG Tablet1 tablet Orally Twice a day; Duration: 30 daysActive Simvastatin 10 MG TabletTAKE 1 TABLET BY MOUTH ONCE DAILY Oral; Duration: 90 DaysActiveMetoprolol Succinate ER 50 MG Tablet Extended Release 24 HourTAKE 1 TABLET BY MOUTH ONCE DAILY Oral; Duration: 90 DaysActive Social History Tobacco Use: Social History Observation Description Date Details (start date - stop date) Never Smoker NA - NA Sex Assigned At : Social History Observation Description Sex Assigned At Female Social History Social DeterminantsSocial InfoQuestionAnswerNotesPRAPAREDate Completed/Updated: 05/30/2023patient entered dataWhat is your current housing situation?I have housingpatient entered dataAre you worried about losing your housing?No patient entered dataWhat is the highest level of school that you have finished?High school diploma or GEDpatient entered dataWhat is your current work situation?Otherwise unemployed but not seeking work (ex. 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 Check all that applyI do not have problems meeting my needsHas lack of transportation kept you from medical appointments, meetings, work or from getting things needed for daily living?NoHow often do you see or talk to people that you care about and feel close to? (For example: talkingto friends on the phone, visiting friends or family, going to alevism or club meetings)More than 5 times a weekpatient entered dataHow stressed are you? Stress is when someone feels tense, nervous, anxious, or can't sleep at nightbecause their mind is troubledA little bitpatient entered dataIn the past year have you spent more than 2 nights in a row in a long-term, assisted, long-term center, orjuvenile correctional facility?Nopatient entered dataAre you a refugee?Nopatient entered dataWhat country are you from?[place] patient entered dataDo you feel physically and emotionally safe where you currently live?Yespatient entered dataIn the past year, have you been afraid of your partner or ex-partner?Nopatient entered dataPRAPARE Score:5PCMH and UDS DemographicsSocial InfoQuestionAnswerNotesPrimary Care Medical Home QuestionsDo you have any barriers to learning?Nonepatient entered dataWhat is your preferred method of learning?Watching a videopatient entered dataHow often do you need to have someone help you read instructions?Neverpatient entered dataHousehold:Social InfoQuestionAnswerNotesHouseholdNumber of adults in household:2Drugs/Alcohol/Caffeine:Social InfoQuestionAnswerNotesDrugsHave you used drugs other than those for medical reasons in the past 12 months?NoCAGE-AID Questionnaire (2018 Edition)Have you ever felt that you ought to cut down on your drinking or drug use?Nopatient entered dataHave people annoyed you by criticizing your drinking or drug use?NoHave you ever felt bad or guilty about your drinking or drug use?Nopatient entered dataHave you ever had a drink or used drugs first thing in the morning to steady your nerves or to get rid of a hangover?Nopatient entered dataCAGE-AID Fhrcx8UczfczwmxmcmkmFvlozgsbYguxjwkx Intake:noneTobacco Use:Social InfoQuestionAnswerNotesTobacco Use/SmokingTobacco use:nonsmokerpatient entered dataAdditional DetailsCategorySocial InfoOptions DetailsMiscellaneous:Culture/Language BarrierNoEducation LevelGrade 7-12Barriers to LearningNoneLearning PreferenceWatching a videoHow often do you need to have someone help you read instructionsNeverSafetyPatient feels safe in relationships YesDrugs/Alcohol/Caffeine:Do you smoke marijuana?DeniesDo you drink alcohol?No Problems Problem Type SNOMED Code ICD Code Onset Dates Problem Status W/U Status Risk Notes Problem Mass of left adrenal gland (1563 [id number]) Left adrenal mass (E27.8) ActiveconfirmedProblemAtrophic vaginitis (57058277)Post-menopause atrophic vaginitis (N95.2)ActiveconfirmedProblemPain in female genitalia on intercourse (75334133)Dyspareunia in female (N94.10)Activeconfirmed Plan Of Treatment No Information Insurance Providers Payer Name Payer Address Payer Phone Subscriber Number Group Number Insured Name Patient Relationship to Insured Coverage Start Date Coverage End Date Aet[employer] Medicare [address] [place] [address] [id number] Jamie Dickson - patient is the [id number] 2021Medicare NGS [address] [place], [place] [id number], SuzanneSelf - patient is the Medical (General) History Medical History History ICD Code A Fib after bunion surgery Surgical History Surgery Date(Month/Year) Tubal eye surgerybunionlump removed in left breast
--- OUTSIDE RECORDS SUMMARY | 2025-06-29 17:12 | XMS_ITS | Clinical Summary ---
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 Sulfa UpdakxufqwqQnkfxlnLtpvzm33/02/2014 Other Reaction(s): Not available CYANOSIS PyswhhbxetevoWbdje91/29/2023 Medications MedicationSigDispense QuantityRefillsLast FilledStart DateEnd DateStatus lisinopril-hydroCHLOROthiazide 10-12.5 MG tablet Take 1 tablet by mouth Daily 1/2 tablet as rgcppium25/07/2023ctive potassium chloride CR (Klor-Con) 10 MEQ ER tablet Take 10 mEq by mouth in the morning.12/02/2022ctive simvastatin (Zocor) 10 MG tablet Take 10 mg by mouth in the morning.12/02/2022ctive apixaban (Eliquis) 5 MG tablet Take 1 tablet by mouth in the morning and 1 tablet before bedtime.Active Magnesium Oxide -Mg Supplement 400 MG capsule 12/01/2023ctive Calcium 600-5 MG-MCG tablet Take by mouthActive Cholecalciferol (Vitamin D) 10 MCG/ML liquid Take by mouthActive Cranberry 500 MG capsule Take by mouthActive metoprolol succinate XL (Toprol-XL) 100 MG 24 hr tablet Take 100 mg by mouth Daily08/25/2024tive sertraline (Zoloft) 50 MG tablet Indications:Anxiety disorder, unspecified typeTake 1 tablet (50 mg) by mouth Daily 90 tablet 5Active Estradiol (Estrace) 0.01 % cream Indications:Vaginal lesionInsert 2 g into the vagina See administration instructions daily for 2 weeks, then 2 times weekly following initial 2 weeks. 42.5 g 5Active cephalexin (Keflex) 500 MG capsule Indications:Vaginal lesionTake 1 capsule (500 mg) by mouth in the morning and 1 capsule (500 mg) before bedtime. Do all this for 10 days. 20 capsule Expired Active Problems ProblemNoted DateDiagnosed DateOth intartic fracture of lower end of left radius, init05/09/2024Left wrist pain05/09/2024Nonobstructive atherosclerosis of coronary euntpf2503/08/2024ulmonary ovvctayvhebi17/03/2024Osteopenia of multiple sites12/06/2023enign hypertensive heart disease without congestive heart xngxpus9610/29/20230258Fmpeciukuvh55/26/4758Hmvtjzxpomktty68/26/2024Mixed /26/2024nxiety disorder, zqsbqfiannt41/25/2024Essential xctdvtygomfa23/28/2023 Overview (12/03/2023): Last Assessment & Plan: - elevated today, she states this normally low - we will have her check her blood pressure 2-3 times a day for 1 week and send clinic the readings - continue Toprol-XL 50 mg daily, Zocor 10 mg daily, lisinopril- hydrochlorothiazide 10-12.5 mg daily Mass of left adrenal gland12/30/2022Nonrheumatic mitral valve regurgitation 12/30/2022 Overview (12/03/2023): Last Assessment & Plan: - history of mild regurgitation from echo 2020 - we will repeat echocardiogram to assess valvular regurgitation and LA size Atrial kjcvmdlndocv02/23/2021 Overview (12/03/2023): Last Assessment & Plan: -History of paroxysmal A-fib, recent ER visit does not look like she had A-fib - continue Eliquis 5 mg twice daily - MGW5RZ6-DYRj at least 3 for age, gender, hypertension - continue metoprolol XL 50 mg daily - in the past she was on amiodarone for short-term, converted chemically and then amiodarone was discontinued - recent ER visit she had elevated TSH Encounters DateTypeDepartmentCare MwptOhlqgzspqlt43/04/2025 9:00 AM ESTOffice Visit [facility] [address] [place] [address] Laura Jones PA Visit for pelvic exam; Breast cancer screening by mammogram; Encounter for screening for osteoporosis; Osteoporosis, post-menopausal; Vaginal lesion; Vaginal dryness, menopausal; Vaginal dryness during vpezqxpcmct56/04/2025amboo flowsheet [facility] [place] [address] [place] [address] Laura Jones PA 06/06/2025Travelfrom Last 3 Months Immunizations ImmunizationAdministration DatesNext UfhQqyo6312/19/2016 Family History Medical HistoryRelationNameCommentsCancerFatherAneurysmMotherHypertensionMother RelationNameStatusCommentsFatherDeceasedMotherDeceased Social History Tobacco UseTypesPacks/DayYears UsedDateSmoking Tobacco: NeverPassive Smoke Exposure: NeverSmokeless Tobacco: Never Tobacco Cessation:Counseling Given: Not Answered Alcohol UseStandard Drinks/WeekCommentsNever0 (1 standard drink = 0.6 oz pure alcohol)PHQ-2AnswerDate RecordedPatient Health Questionnaire-2 Zoqtm508 CommentsNoSex and Gender InformationValueDate RecordedSex Assigned at AqxtpFuaivm40/22/2024 11:22 AM EDTLegal ZnwOpdglc53/15/2023 11:18 PM EDTGender PzycmnpkLeouoz17/22/2024 11:22 AM EDTSexual OrientationNot on file Last Filed Vital Signs Vital SignReadingTime TakenCommentsBlood Iutlpwla720/8212/10/2024 9:00 AM EST Wjhes8156/ 9:58 AM EDTTemperature--Respiratory Izgh399312/06/2023 1:49 PM EDTOxygen Mpmbxxtzsn74%01/15/2025 9:58 AM EDTInhaled Oxygen Concentration-- Khgzjl08.2 kg (135 lb)06/07/2025 9:00 AM VOTCszcts310.4 cm (5')01/15/2025 9:58 AM EDTBody Mass Index26.37001/15/2025 9:58 AM EDT Plan of Treatment DateTypeDepartmentCare Team (Latest Contact Info)Dltrosbtvpw21/10/2026 10:00 AM ESTProcedure Visit [facility] [address] [place] [address] Laura Jones PA [address] [place], [place] [address] Health MaintenanceDue DateLast DoneCommentsCT Egcweaqnzldm72/01/1953Colonoscopy 1950FIT1950FOBT1950 9984Ggrrxnagfzzqv27/01/1953Pneumococcal Vaccine: 65+ Years (1 of 2 - PCV)09/03/1971Influenza Vaccine (#1)2025 Medicare Annual Wellness (AWV)/, 06/05/2024, 06/05/2024, Additional history btnqguEdknnbhew37/18/202608/, 02/18/2024, 01/08/2017, Additional history existsColorectal Cancer Pilkwdzbq81/25/2028FIT-DNA09/27/2027 09/26/2024, 03/27/2020 Procedures Procedure NamePriorityDate/TimeAssociated DiagnosisCommentsMM TOMOSYNTHESIS SCREENING BI02/19/2025 12:52 PM EDT LAB COLOGUARD?? COLON CANCER LWPRBJUkuvoet70/25/2025 9:00 AM EDT Encounter for screening for malignant neoplasm of colon from Last 3 Months or Most Recently Relevant to Health Maintenance Results * MM TOMOSYNTHESIS SCREENING BI (02/19/2025 12:52 PM EDT)Anatomical Region LateralityModalityOtherSpecimen (Source)Anatomical Location / Laterality Collection Method / VolumeCollection TimeReceived Time02/19/2025 12:52 PM EDT Narrative 02/19/2025 12:54 PM EDT The ?[address] ? [place] [address] ? Mammography Report ? Signed ? Patient: SHARRI COONEY L ?MR#: [id number] ?? : 1950 ?Acct:[id number] ?? Age/Sex: 74 / F ?ADM Date: 02/19/25 ?? Loc: MAMMO ? Attending Dr: Justin Ley D.O. ? Ordering Physician: Justin Ley D.O. ?Results: ? Date of Service: 02/19/25 ?Follow Up: ? Procedure(s): MM tomosynthesis screening BI ?? Accession Number(s): [id number] ? cc: RYAN RUIZ ; Justin Ley D.O. ? Patient Name: ? SHARRI COONEY ? MR#: [id number] ? : 1950 ? Exam Date: 02/19/2025 ?? Ordering Doctor: DR JUSTIN LEY . ? RADIOLOGY REPORT ? PROCEDURE: ? MM TOMOSYNTHESIS SCREENING BI ? COMPARISON: ? MM TOMOSYNTHESIS SCREENING BI, 02/17/2024. ??MM TOMOSYNTHESIS ?? SCREENING BI, 02/10/2023. ??MG MAMM SCREEN 3D JASMEET CAD, 02/09/2022. ??MG MAMM ?? SCREEN JASMEET W CAD, 01/21/2015. ? INDICATIONS: ? Screening ? Calculator Name ? NCI Breast Cancer Risk Assessment Tool ?? 5 Year Breast Cancer Risk ? 1.70% ?? Lifetime Breast Cancer Risk ? 4.40% ?? Personal Breast Cancer ?No ?? Personal Ovarian Cancer ? No ?? Treatments ? None ?? Family Cancers ? Father with prostate cancer at age 58. ? LOCATION: ? The ? BREAST COMPOSITION: ? There are scattered areas of fibroglandular density. ? FINDINGS: ? DIAGNOSTIC CATEGORY 1--NEGATIVE. ? RIGHT BREAST: ??No significant suspicious finding. ? LEFT BREAST: ??No significant suspicious finding. ? RECOMMENDATIONS: ? ROUTINE MAMMOGRAM AND CLINICAL EVALUATION IN 12 MONTHS. ? PLEASE NOTE: ??A NORMAL MAMMOGRAM DOES NOT EXCLUDE THE POSSIBILITY OF BREAST ?? CANCER. ??A CLINICALLY SUSPICIOUS PALPABLE LUMP SHOULD BE BIOPSIED. ? Dictated by: Mode Douglas MD on 02/19/2025 at 12:44 ? Approved by: Mode Douglas MD on 02/19/2025 at 12:52 ? Dictated By: ?Mode Douglas M.D. ? Signed By: ?02/19/25 1254 ? DD/ 1252 ? TD/TT: ? Acds Block 1 Operator: Procedure Note Radiology, Radiologist, MD - 02/19/[address] [place] [address] Mammography Report Signed Patient: SHARRI COONEY R#: [id number] : 3Acct:[id number] Age/Sex: 74 / FADM Date: 02/19/25 Loc: MAMMO Attending Dr: Justin Ley D.O. Ordering Physician: Justin Ley D.O.Results: Date of Service: 02/19/25Follow Up: Procedure(s): MM tomosynthesis screening BI Accession Number(s): [id number] cc: RYAN RUIZ ; Justin Ley D.O. Patient Name: SHARRI COONEY MR#: [id number] : 1950 Exam Date: 02/19/2025 Ordering Doctor: DR JUSTIN LEY . RADIOLOGY REPORT PROCEDURE: MM TOMOSYNTHESIS SCREENING BI COMPARISON: MM TOMOSYNTHESIS SCREENING BI, 02/17/2024. MMTOMOSYNTHESIS SCREENING BI, 02/10/2023. MG MAMM SCREEN 3D JASMEET CAD, 02/09/2022. MG MAMM SCREEN JASMEET W CAD, 01/21/2015. INDICATIONS: Screening Calculator Name NCI Breast Cancer Risk Assessment Tool 5 Year Breast Cancer Risk 1.70% Lifetime Breast Cancer Risk 4.40% Personal Breast Cancer No Personal Ovarian Cancer No Treatments None Family Cancers Father with prostate cancer at age 58. LOCATION: The BREAST COMPOSITION: There are scattered areas of fibroglandulardensity. FINDINGS: DIAGNOSTIC CATEGORY 1--NEGATIVE. RIGHT BREAST: No significant suspicious finding. LEFT BREAST: No significant suspicious finding. RECOMMENDATIONS: ROUTINE MAMMOGRAM AND CLINICAL EVALUATION IN 12 MONTHS. PLEASE NOTE: A NORMAL MAMMOGRAM DOES NOT EXCLUDE THE POSSIBILITY OFBREAST CANCER. A CLINICALLY SUSPICIOUS PALPABLE LUMP SHOULD BE BIOPSIED. Dictated by: Mode Douglas MD on 02/19/2025 at 12:44 Approved by: Mode Douglas MD on 02/19/2025 at 12:52 Dictated By: Mode Douglas M.D. Signed By:02/19/25 1254 DD/ 1252 TD/TT: Acds Block 1 Operator: Authorizing ProviderResult TypeResult StatusGeneric External Data Provider CLINISYNC IMAGINGFinal Result * Cologuard?? colon cancer screening (09/26/2024 9:00 AM EDT)ComponentValueRef RangeTest MethodAnalysis TimePerformed AtPathologist SignatureNONINV COLON CA DNA+OCC BLD SCRN STL-MPKDfgkkmzuGdmpkums60/28/2025 12:41 PM EDTEXFameBit (CLIA #:[id number])Comment: NEGATIVE TEST RESULT. A negative Cologuard result indicates a low likelihood that a colorectal cancer (CRC) or advanced adenoma (adenomatous polyps with more advanced pre-malignant features) ??is present. The chance that a person with a negative Cologuard test has a colorectal cancer is less than 1in 1500 (negative predictive value >99.9%) or has an advanced adenoma is less than 5.3% (negative predictive value 94.7%). These data are based on a prospective cross-sectional study of 10,000individuals at average risk for colorectal cancer who were screened with both Cologuard and colonoscopy. (James Moore al, N Engl J Med 2014;370(14):4762-4934) The normal value (reference range) for this assay is negative. COLOGUARD RE-SCREENING RECOMMENDATION: Periodic colorectal cancer screening is an important part ofpreventive healthcare for asymptomatic individuals at average risk for colorectal cancer. ??Following a negative Cologuard result, the [place] [employer] Society and U.S. Multi-Society Task Force screening guidelines recommend a Cologuard re-screening interval of 3 years. References: [place] [employer] Society Guideline for Colorectal Cancer Screening: https://www.cancer.or g/cancer/myord-vbmasf-tscjbt/uzvlfqvge-azgodgovq-yoekqqv/acs-recommendations.htm sheba; Alvaro MINOR, Jakub GUTHRIE, Osmani AbbasiK, Colorectal Cancer Screening: Recommendations for Physicians and Patients from the U.S. Multi-Society Task Force on Colorectal Cancer Screening , Am J Gastroenterology 2017; 112:8039-2618. TEST DESCRIPTION: Composite algorithmic analysis of stool DNA-biomarkers with hemoglobin immunoassay. ?? Quantitative values of individual biomarkers are not reportable and are not associated with individual biomarker result reference ranges. Cologuard is intended for colorectal cancer screening ofadults of either sex, 45 years or older, [...] San et al, N Engl J Med 2014;370(14):2834-7364.) Cologuard may produce a false negative or false positive result (no colorectal cancer or precancerous polyp present at colonoscopy follow up). A negative Cologuard test result does not guarantee the absence of CRC or advanced adenoma (pre-cancer). The current Cologuard screening interval is every 3 years. ([place] Cancer Society and U.S. Multi-Society Task Force). Cologuard performance data in a 10,000 patient pivotal study using colonoscopy as the reference method can be accessed at the following location: www.[employer]/results. Additional description of the Cologuard test process, warnings and precautions can be found at www.[employer]ard.com. Specimen (Source)Anatomical Location / LateralityCollection Method / Volume Collection TimeReceived TimeStool specimen (specimen)09/26/2024 9:00 AM EDT 09/27/2024 12:42 PM EDT Narrative Authorizing ProviderResult TypeResult StatusAdelina Chamberlain NPROM[facility] ORDERABLESFinal ResultPerforming OrganizationAddressCity/State/ZIP CodePhone Number .[employer] (CLIA #:[id number]) [address] [address] [phone] [employer] (CLIA #:[id number]) [address] [id number] from Last 3 Months or Most Recently Relevant to Health Maintenance Insurance * Guarantor: Gia Cooney TypeRelation to PatientDate of BirthPhone Billing AddressPersonal/YofmqsFqzf00/01/1951 [facility] [address] Care Teams Team MemberRelationshipSpecialtyStart DateEnd Date Ron Peterson MD [address] [place] [address] PCP - GeneralFamily Medicine12/31/22 Ryan Ruiz MD [address] [address] PCP - [employer]05/05/24
--- OUTSIDE RECORDS SUMMARY | 2025-06-29 17:12 | XMS_ITS | Patient Health Record ---
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 Name Role Phone PROVIDER, UNKNOWN Primary Care Provider Kira Aguiar Leander Unavailable [phone] Allergies Allergen (clinical drug ingredient) Drug/Non Drug Allergy documented on EMR Reaction Allergy Type Onset Date Status SULFA (uncoded)UnknownAllergyActiveciprofloxacinciprofloxacinUnknownDrug Allergy ActivelevofloxacinlevoFLOXacinUnknownDrug AllergyActive Reason For Referral No Information Medications Medication SIG (Take, Route, Frequency, Duration) Notes Start Date End Date Status hydroCHLOROthiazide ActivesimvastatinActivemetoprololActivepotassium chlorideActiveCalcium 500+D Activemagnesium citrateActivesertralineActiveapixabanActivelisinoprilActive Social History Tobacco Use: Social History Observation Description Date Details (start date - stop date) Never Smoker NA - NA AUDIT-C (Standard) Question Answer Notes Did you have a drink containing alcohol in the p ast year? No Svppyy0LzdrlgrbgqkztrUxcrmyupSpheojw Control (Standard) Question Answer Notes Tobacco use: Nonsmoker Problems Problem Type SNOMED Code ICD Code Onset Dates Problem Status W/U Status Risk Notes Problem Closed fracture of d istal end of left radius ([id number]) Other intraarticular fracture of lower end of left radius, subsequent encounter for closed fracture with routine healing (S52.572D) Activeconfirmed Plan Of Treatment Pending Test Test Name Order Date SCC- WRIST 3 VIEW LEFT [id number] 04/03/2024 SCC- WRIST 3 VIEW LEFT [id number] 04/10/2024 Insurance Providers Payer Name Payer Address Payer Phone Subscriber Number Group Number Insured Name Patient Relationship to Insured Coverage Start Date Coverage End Date Medicare [employer] [address] [place] [phone] [id number] Dao COONEY - patient is the insured Medical (General) History Medical History History ICD Code Heart problems: High Blood PressureDrug Allergies
--- OUTSIDE RECORDS SUMMARY | 2025-06-29 17:55 | XMS_ITS | CCD ---
Author Organization [facility] Care Team Providers Care Supervising Floorperson Name Role Phone DIONY Velazquez, DR DOBBS [...] Unavailable HOY ., DR DOBBS Admitting Unavailable HOAna ., DR DOBBS Primary Care Unavailable RAFIQ SEALS Consulting Unavailable MYRA LEUNG Attending Unavailable MYRA LEUNG Admitting Unavailable DIONY ., DR DOBBS Primary Care Unavailable MYRA LEUNG Consulting Unavailable Broderick Solomon Unavailable Rinku Peterson MD Primary Care Provider [phone] Rayn Ruiz MD Unavailable Rinku Peterson MD Primary Care Provider RYAN RUIZ Attending Unavailable JEFFERY DOE Attending Unavailable TIFFANIE VILLANUEVA Referring Unavailable THEO LEY Attending Unavailable AMBERLY GALVIN Attending Unavailable TIFFANIE VILLANUEVA Referring Unavailable AMBERLY GALVIN Attending Unavailable TIFFANIE VILLANUEVA Referring Unavailable JORGE, AMBERLY Attending Unavailable VILLANUEVA, TIFFANIE Estevez Referring Unavailable JORGE, AMBERLY Attending Unavailable TIFFANIE VILLANUEVA Referring Unavailable JORGE, AMBERLY Attending Unavailable VILLANUEVA, TIFFANIE Estevez Referring Unavailable JORGE, AMBERLY Attending Unavailable VILLANUEVA, TIFFANIE Estevez Referring Unavailable DWAYNE CHAMBERLAIN Attending Unavailable JORGE, AMBERLY Attending Unavailable TIFFANIE VILLANUEVA Referring Unavailable RYAN RUIZ Attending Unavailable STEPHANIE, ROBERT Referring Unavailable STEPHANIE, ROBERT Referring Unavailable STEPHANIE, ROBERT Referring Unavailable STEPHANIE, ROBERT Referring Unavailable ELTAHAWY, EHAB Attending Unavailable STEPHANIE, ROBERT Referring Unavailable STEPHANIE, ROBERT Referring Unavailable STEPHANIE, ROBERT Referring Unavailable STEPHANIE, ROBERT Referring Unavailable STEPHANIE, ROBERT Referring Unavailable STEPHANIE, ROBERT Referring Unavailable STEPHANIE, ROBERT Referring Unavailable Allergies Allergy ClassificationReported Allergen(s)Allergy TypeDate of OnsetReaction(s) Facility (1 source)Sulfonamides (Antibiotic)Drug allergy (disorder)60-10-5007[facility] (1 source)Sulfamethoxazole / TrimethoprimDrug AllergyNAILS TURNED [facility] Other (20 sources)Ciprofloxacin; 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: [CIPROFLOXACIN]Drug Ktdihkj77-22-8556 [facility] (20 sources)levoFLOXacin; 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: [LEVOFLOXACIN]Drug Lqzclgq95-68-2763[facility] (20 sources)SulfacetamideDrug Uvbjvvo19-33-7160JwuhbQOKY [facility] (20 sources)Sulfonamides (Antibiotic)Drug Uaitees19-12-9480[facility] (1 source)Sulfonamides (Antibiotic); 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: [SULFA (SULFONAMIDE ANTIBIOTICS)]Propensity to adverse reactions to drug (disorder)12-02-2022 [facility] Repository Medications Current Medications MedicationDrug Class(es)DatesSig (Normalized)Sig (Original)apixaban 5 mg oral tablet (20 sources)Factor Xa Inhibitortake 1 tablet by mouth in the morningapixaban (Eliquis) 5 MG tablet Take 1 tablet by mouth in the morning and 1 tablet before bedtime. Activeazithromycin 250 mg oral tablet (1 source)Macrolide AntimicrobialStart: 47-61-9773Hvamkxncssmw 250 MG 2 tablets on the first day, then 1 tablet daily for 4 days Orally Once a day for 5 day(s) Apr, Activebiotin 10 mg oral tablet (1 source)Biotin 10 MG as directed Orally ActiveCalcium 600 + D 600-200 MG-UNIT (1 source)take 1 tablet by mouth twice daily at mealtimeCalcium 600 + D 600-200 MG-UNIT 1 tablet with food Orally bid ActiveCalcium 600-5 MG-MCG tablet (20 sources)Calcium 600-5 MG-MCG tablet Take by mouth ActiveCentrum Silver Adult 50+ - (1 source)Centrum Silver Adult 50+ - as directed Orally Activecholecalciferol 0.01 mg/ml oral solution (20 sources)Vitamin DCholecalciferol (Vitamin D) 10 MCG/ML liquid Take by mouth Activecranberry preparation 500 mg oral capsule (20 sources)Non-Standardized Food Allergenic Extract, Non-Standardized Plant Allergenic ExtractCranberry 500 MG capsule Take by mouth ActiveCranberry 250 MG as directed Orally ActivehydroCHLOROthiazide 12.5 mg / lisinopril 10 mg oral tablet (20 sources)Thiazide Diuretic, Angiotensin Converting Enzyme InhibitorStart: 02-72-1896uxqgpdwwby-hydroCHLOROthiazide 10-12.5 MG tablet Take 1 tablet by mouth Daily 1/2 tablet as directed 12/09/2022 ActiveStart: 68-92-2660xwal 1 tablet by mouth in the morninglisinopril-hydroCHLOROthiazide 10-12.5 MG tablet Take 1 tablet by mouth in the morning. as directed. 12/09/2022 ActiveLisinopril- hydroCHLOROthiazide Activemagnesium oxide 400 mg oral capsule (20 sources)Start: 11-36-3433Ecsfhqswi Oxide -Mg Supplement 400 MG capsule 12/01/2023 Wbddzf98 hr metoprolol succinate 100 mg extended release oral tablet (20 sources)beta-Adrenergic BlockerStart: 94-15-2601onqf 1 tablet by mouth once dailymetoprolol succinate XL (Toprol-XL) 100 MG 24 hr tablet Take 100 mg by mouth Daily 08/25/2024 ActiveStart: 12-02-2022 End: 44-91-7927rkat 1 tablet by mouth every twenty-four hours in the morning metoprolol succinate XL (Toprol-XL) 50 MG 24 hr tablet Take 50 mg by mouth in the morning. 12/02/2022 09/14/2024 Discontinued (Dose adjustment)Metoprolol Succinate ER Activemolnupiravir 200 MG Oral Capsule [Lagevrio] (1 source)Start: 18-94-5284mulb 4 capsules by mouth every twelve hours Molnupiravir 200 MG 4 capsules Orally every 12 hrs for 5 day(s) Apr, Activepotassium 99 mg extended release oral tablet (1 source)take 1 tablet by mouth once dailyPotassium 99 MG 1 tablet Orally Once a day Activepotassium chloride 10 meq extended release oral tablet (20 sources)Start: 12-43-1042dhsj 1 tablet by mouth in the morningpotassium chloride CR (Klor-Con) 10 MEQ ER tablet Take 10 mEq by mouth in the morning. 12/02/2022 Activesertraline 50 mg oral tablet (20 sources)Serotonin Reuptake InhibitorStart: 76-61-4297jxqf 1 tablet by mouth once dailysertraline (Zoloft) 50 MG tablet Indications: Anxiety disorder, unspecified type Take 1 tablet (50 mg) by mouth Daily 90 tablet 3 10/19/2024 ActiveStart: 16-60-0719ncdy 1 tablet by mouth once dailysertraline (Zoloft) 50 MG tablet Take 50 mg by mouth Daily 11/30/2023 Activesimvastatin 10 mg oral tablet (20 sources)HMG-CoA Reductase InhibitorStart: 92-20-7169cbjq 1 tablet by mouth in the morningsimvastatin (Zocor) 10 MG tablet Take 10 mg by mouth in the morning. 12/02/2022 ActiveSimvastatin ActiveVitamin D-3 1000 UNIT (1 source)take 2 tablets by mouth once dailyVitamin D-3 1000 UNIT 2 tablet Orally Once a day Active Completed/Discontinued Medications MedicationDrug Class(es)DatesSig (Normalized)Sig (Original)cyclobenzaprine hydrochloride 10 mg oral tablet (1 source)Muscle RelaxantStart: 50-32-5476ziou 1 tablet by mouth every eight hoursCyclobenzaprine HCl 10 MG 1 tablet as needed Orally Three times a day for 10 days Oct, Not-TakingmethylPREDNISolone 4 mg oral tablet (1 source)CorticosteroidStart: 92-79-0650ihulyyKAEQCNEnkflh 4 MG as directed Orally Once a day for 6 days Oct, Not-Taking Problems Active Problems Problem ClassificationProblemDateDocumented DateEpisodic/Chronic Administrative/social admission (2 sources)Patient encounter status; 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: [Other specified counseling] 10-24-8373DoiqvrpmRianvdm disorders (20 sources)Anxiety disorder; 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: [Anxiety disorder, unspecified] Onset: 842033-32-6923PcabxwsNvnpcjm dysrhythmias (20 sources)Atrial fibrillation; 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: [Unspecified atrial fibrillation] Onset: 095221-36-1154QrsqgicPeplmuk dysrhythmias (7 sources)Palpitations; 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: [PALPITATIONS]Onset: 34-34-6263Vaescbcp Coagulation and hemorrhagic disorders (2 sources)Thrombophilia; 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: [Other thrombophilia]99-77-5728Llswrde Conduction disorders (2 sources)Presence of automatic (implantable) cardiac defibrillator; 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: [Presence of automatic (implantable) cardiac defibrillator]Onset: 92-45-7389CsrosssFecpqhuu atherosclerosis and other heart disease (20 sources)Non-obstructive atherosclerosis of coronary artery; 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: [Atherosclerotic heart disease ofnative coronary artery without angina pectoris] Onset: 850975-26-4627ZuijabcZzlmaeomu of lipid metabolism (20 sources)Mixed hyperlipidemia; 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: [Mixed hyperlipidemia]Onset: 169518-48-7193TbtteszM Codes: Fall (2 sources)Fall in home; 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: [Unspecified fall, sequela]01-15-2025 EpisodicEssential hypertension (20 sources)Essential hypertension; 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: [Essential (primary) hypertension]Onset: 457927-36-4482NswgdlrAcxyy valve disorders (20 sources)Non-rheumatic mitral regurgitation ; 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: [Nonrheumatic mitral (valve) insufficiency]Onset: 037829-82-9593IsceyvuYedxltgbikyb with complications and secondary hypertension (20 sources)Benign hypertensive heart disease without congestive heart failure; 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: [Hypertensive heart disease without heart failure]Onset: 677555-05-2885IoofgszZumjhdm (4 sources)Tinea unguium; 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: [TINEA UNGUIUM]Onset: 47-15-8648Sxisstqn Osteoporosis (4 sources)Age-related osteoporosis without current pathological fracture; 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: [AGE-REL OSTEOPOR W/OCURR PATH FX]Onset: 10-54-3868AicsxbaUyuuo aftercare (1 source)[facility] (current) use of anticoagulants; 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: [INVESTOR CURRNT USE ANTICOAGULANTS]Onset: 33-16-2613IfhkqhyaSaeem aftercare (1 source)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; 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: [OTH INVESTOR CURRENT DRUG THERAPY]Onset: 16-91-8061HttzgixvJfpho bone disease and musculoskeletal deformities (1 source)Other specified disorders of bone density and structure, multiple sites; 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: [OTH D/O BONE DENSITY STRUCT MX SITE]Onset: 08-28-2022 EpisodicOther connective tissue disease (2 sources)Tendonitis of left wrist; 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: [Other enthesopathies, not elsewhere classified]49-59-8390XhkaqquaExayq endocrine disorders (20 sources)Mass of left adrenal gland; 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: [Other specified disorders of adrenal gland]Onset: 024917-50-2256ZcpkbcyRqhfg nutritional; endocrine; and metabolic disorders (1 source)Hypomagnesemia; 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: [HYPOMAGNESEMIA]Onset: 21-93-3009Vlyspub Other nutritional; endocrine; and metabolic disorders (20 sources)Hypomagnesemia; 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: [Hypomagnesemia]Onset: 10-29-2023 74-62-0752NaqhwgtBfjql screening for suspected conditions (not mental disorders or infectious disease) (8 sources)Encounter for screening mammogram for malignant neoplasm of breast; 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: [Patient encounter status]Onset: 51-81-6730FubfkgsfUlvdk upper respiratory infections (4 sources)Chronic sinusitis, unspecified; 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: [CHRONIC SINUSITIS UNSPECIFIED]Onset: 25-51-6733YqbsntgGlllb upper respiratory infections (1 source)Acute upper respiratory infection, unspecifiedEpisodicPulmonary heart disease (20 sources)Pulmonary hypertension; 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: [Pulmonary hypertension, unspecified]Onset: 041793-57-3819GpaxnxpCcbtvhhf codes; unclassified (2 sources)Postmenopausal state; 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: [Asymptomatic menopausal state] 10-43-6764Pebqtluz Past or Other Problems Problem ClassificationProblemDateDocumented DateEpisodic/ChronicFluid and electrolyte disorders (20 sources)Hypokalemia; 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: [Hypokalemia]Onset: 638662-66-6693 EpisodicFracture of upper limb (20 sources)Closed fracture of distal end of radius; 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: [Other intraarticular fracture of lower end of left radius, initial encounter for closed fracture]Onset: 217008-49-0243YnykcjxzVqcts bone disease and musculoskeletal deformities (20 sources)Osteopenia; Translations: [Other specified disorders of bone density and structure, multiple sites]Onset: 883562-57-3305GkapeypeNxnci circulatory disease (4 sources)Other specified symptoms and signs involving the circulatory and respiratory systems; Translations:[OTH SPEC SX SIGNS INVLV CIRC RS]Onset: 80-91-7842XyqohlubWlrww non-traumatic joint disorders (20 sources)Pain of left wrist; Translations: [Pain in left wrist]Onset: 158662-19-1639RfjfzhvhVxknrzyy codes; unclassified (1 source)Family history of malignant neoplasm of prostate; Translations: [FAMILY HX MALIG NEOPLASM PROSTATE]Onset: 54-80-9988FeufnpptFyrhrwlixlqu (1 source)Contact with and (suspected) exposure to covid-19 Z20.822Viral infection (2 sources)COVID-19; Translations: [COVID-19]Onset: 04-01-2022 Results Test NameValueInterpretationReference RangeFacilityOrders Onlyon 04-24-2025 Orders [id number] Sharri Cooney 1950 F Date Provider Department Center 04/24/2025 [facility] No family history on fileNormalUniversKnox Community HospitalOrders Onlyon 27-70-5617Iqsvia [id number] Sharri Cooney 1950 F Date Provider Department Center 02/21/2025 [facility] No family history on fileNormalUniversity Holmes County [facility] HospitalMM TOMOSYNTHESIS SCREENING BIon 56-31-6741QahLun[place], [place] [address] Mammography Report Signed Patient: SHARRI COONEY MR#: [id number] : 1950 Acct:[id number] Age/Sex: 74 / F ADM Date: 02/19/25 Loc: MAMMO Attending Dr: Theo Ley D.O. Ordering Physician: Theo Ley D.O. Results: Date of Service: 02/19/25 Follow Up: Procedure(s): MM tomosynthesis screening BI Accession Number(s): [id number] cc: RYAN RUIZ ; Theo Ley D.O. Patient Name: SHARRI COONEY MR#: [id number] : 1950 Exam Date: 02/19/2025 Ordering Doctor: DR THEO LEY . RADIOLOGY REPORT PROCEDURE: MM TOMOSYNTHESIS SCREENING BI COMPARISON: MM TOMOSYNTHESIS SCREENING BI, 02/17/2024. MM TOMOSYNTHESIS SCREENING BI, 02/10/2023. MG MAMM SCREEN 3D JASMEET CAD, 02/09/2022. MG MAMM SCREEN JASMEET W CAD, 01/21/2015. INDICATIONS: Screening Calculator Name NCI Breast Cancer Risk Assessment Tool 5 Year Breast Cancer Risk 1.70% Lifetime Breast Cancer Risk 4.40% Personal Breast Cancer No Personal Ovarian Cancer No Treatments None Family Cancers Father with prostate cancer at age 58. LOCATION: [facility] BREAST COMPOSITION: There are scattered areas of fibroglandular density. FINDINGS: DIAGNOSTIC CATEGORY 1--NEGATIVE. RIGHT BREAST: No [...] 12:52 Dictated By: Mode Douglas M.D. Signed By: 02/19/25 1254 DD/ 1252 TD/TT: Weatherization Specialist:TBHRadiology, Radiologist, - 02/19/2025 [place] [address] Mammography Report Signed Patient: SHARRI COONEY MR#: [id number] : 1950 Acct:[id number] Age/Sex: 74 / F ADM Date: 02/19/25 Loc: MAMMO Attending Dr: Theo Ley D.O. Ordering Physician: Theo Ley D.O. Results: Date of Service: 02/19/25 Follow Up: Procedure(s): MM tomosynthesis screening BI Accession Number(s): [id number] cc: RYAN RUIZ ; Theo Ley D.O. Patient Name: SHARRI COONEY MR#: [id number] : 1950 Exam Date: 02/19/2025 Ordering Doctor: DR THEO LEY . RADIOLOGY REPORT PROCEDURE: MM TOMOSYNTHESIS SCREENING BI COMPARISON: MM TOMOSYNTHESIS SCREENING BI, 02/17/2024. MM TOMOSYNTHESIS SCREENING BI, 02/10/2023. MG MAMM SCREEN 3D JASMEET CAD, 02/09/2022. MG MAMM SCREEN JASMEET W CAD, 01/21/2015. INDICATIONS: Screening Calculator Name NCI Breast Cancer Risk Assessment Tool 5 Year Breast Cancer Risk 1.70% Lifetime Breast Cancer Risk 4.40% Personal Breast Cancer No Personal Ovarian Cancer No Treatments None Family Cancers Father with prostate cancer at age 58. LOCATION: [facility] BREAST COMPOSITION: There are scattered areas of fibroglandular density. FINDINGS: DIAGNOSTIC CATEGORY 1--NEGATIVE. RIGHT BREAST: No [...] 12:52 Dictated By: Mode Douglas M.D. Signed By: 02/19/25 1254 DD/ 1252 TD/TT: Weatherization Specialist: GADIEL HealthcareRadiology Study observation (narrative)[facility] HospitalMM TOMOSYNTHESIS SCREENING BIOrdered By: Radiologist Radiology on 80-00-2942DGUF NCR Work Phone: Orders Onlyon 75-88-9477Pdmres [id number] Sharri Cooney 1950 F Date Provider Department Center 11/19/2024 [facility] No family history on fileNormalUniversity Holmes County [facility] HospitalCA ECHO DOPPLER COMPLETEon 08-55-4547[place], [place] [address] Cardiology Report Signed Patient: SHARRI COONEY MR#: [id number] : 1950 Acct:[id number] Age/Sex: 73 / F ADM Date: 07/31/24 Loc: CARD Attending Dr: Cecilia Pelayo M.D. Ordering Physician: Cecilia Pelayo M.D. Date of Service: 07/31/24 Procedure(s): CA echo doppler complete Accession Number(s): [id number] cc: RYAN RUIZ ; Cecilia Pelayo M.D. Patient Name: SHARRI COONEY MR#: [id number] : 1950 Exam Date: 07/31/2024 Ordering Doctor: DR CECILIA PELAYO M.D. ECHOCARDIOGRAM REPORT PROCEDURE: CA ECHO [...] Pressure: 41.00 ml, 41.00 ml Dictated by: Delmy Orantes M.D. on 07/31/2024 at 10:37 Approved (more content not included)...TBHRadiology, Radiologist, MD - 07/31/2024 [place] [address] Cardiology Report Signed Patient: SHARRI COONEY MR#: [id number] : 1950 Acct:[id number] Age/Sex: 73 / F ADM Date: 07/31/24 Loc: CARD Attending Dr: Cecilia Pelayo M.D. Ordering Physician: Cecilia Pelayo M.D. Date of Service: 07/31/24 Procedure(s): CA echo doppler complete Accession Number(s): [id number] cc: RYAN RUIZ ; Cecilia Pelayo M.D. Patient Name: SHARRI COONEY MR#: [id number] : 1950 Exam Date: 07/31/2024 Ordering Doctor: DR CECILIA PELAYO M.D. ECHOCARDIOGRAM REPORT PROCEDURE: CA ECHO [...] Pressure: 41.00 ml, 41.00 ml Dictated by: Delmy Orantes M.D. on 07/31/2024 at 10:37 Approved by: Delmy Orantes M.D. on 07/31/2024 at 10:41 Dictated By: DELMY ORANTES Signed By: 07/31/24 1042 DD/ 1041 TD/TT: Weatherization Specialist: [facility] HealthcareRadiology Study observation (narrative)[facility] ECHO DOPPLER COMPLETEOrdered By: Radiologist Radiology on 73-83-7485HJDR [facility] Work Phone: Office Visiton 60-79-7169Ahdoam-up [id number] Sharri Cooney 1950 F Date Provider Department Center 07/[facility]/2024 [facility] No family history on file Level of Service:04505 CO OFFICE/OUTPATIENT ESTABLISHED MOD MDM 30 [facility] CenterIGP,APTIMA HPV,AGE GDLNon 88-28-4157VUT GDLN ACOG TESTINGNote.[facility] HealthcareComment on above:TESTS RESULT FLAG UNITS REF RANGE LAB Clinician Provided Cytology Information Source.............Cervix;Endocervix No. of containers..01 ThinPrep Vial Age Dajuano ACOG Rayna... Note 01 <21 or >65 or no age provided FLAG LEGEND: L-Low Normal,H-High Normal,LL-Alert Low,HH-Alert High <-Panic Low,>-Panic High,A-Abnormal,AA-Critical Abnormal Performed at: 01 =G [facility] [address] Prabha Vizcarra MD, PAP IG (IMAGE GUIDED)Note.NOMS HealthcareComment on above:TESTS RESULT FLAG UNITS REF RANGE LAB DIAGNOSIS: 02 NEGATIVE FOR INTRAEPITHELIAL LESION OR MALIGNANCY. REACTIVE CELLULAR CHANGES AND/OR REPAIR ARE PRESENT. CELLULAR CHANGES ASSOCIATED WITH ATROPHY ARE PRESENT. Specimen adequacy: 02 Satisfactory for evaluation. Endocervical component may not be distinguished in cases of atrophy. Performed by: 02 Will Aaron, Lithograph Press Feeder (ASCP) Electronically si... 02 Monique Loyd MD, [...] <-Panic Low,>-Panic High,A-Abnormal,AA-Critical Abnormal Performed at: [address] [phone] Prabha Vizcarra MD, Performed at: = - [facility] [id number] Motorcycle Assembler: Prabha Vizcarra MD, Phone: [phone] Performed at: [address] [id number] Motorcycle Assembler: Prabha Vizcarra MD, Phone: [phone] BRUSH-SPATULA CERVIX ENDOCERVIX CLINISYNCNOIL HealthcareXR WRIST LT MIN 3 Von 32-71-0774[place], [place] [address] XRay Report Signed Patient: SHARRI COONEY MR#: [id number] : 1950 Acct:[id number] Age/Sex: 73 / F ADM Date: 06/05/24 Loc: EC Attending Dr: Tiffanie Villanueva M.D. Ordering Physician: Tiffanie Villanueva M.D. Date of Service: 06/05/24 Procedure(s): XR wrist LT min 3V Accession Number(s): [id number] cc: RYAN RUIZ ; Tiffanie Villanueva M.D. [place] [id number] Patient Name: SHARRI COONEY MRN: [id number]:[id number] date: 1950 Sex: F Assigned Patient Location: Current Patient Location: Accession/Order Number: [id number] Exam Date: 06/05/2024 08:05 Report Date: 06/06/2024 [...] M.D. Signed By: 06/06/24623 DD/ 1 TD/TT: Weatherization Specialist:TBHRadiology, Radiologist, MD - 06/06/2024 [place] [address] XRay Report Signed Patient: SHARRI COONEY MR#: [id number] : 1950 Acct:[id number] Age/Sex: 73 / F ADM Date: 06/05/24 Loc: EC Attending Dr: Tiffanie Villanueva M.D. Ordering Physician: Tiffanie Villanueva M.D. Date of Service: 06/05/24 Procedure(s): XR wrist LT min 3V Accession Number(s): [id number] cc: RYAN RUIZ ; Tiffanie Villanueva M.D. The [address] [address] Patient Name: SHARRI COONEY MRN: [id number]:[id number] date: 1950 Sex: F Assigned Patient Location: Current Patient Location: Accession/Order Number: [id number] Exam Date: 06/05/2024 08:05 Report Date: 06/06/2024 [...] M.D. Signed By: 06/06/24623 DD/ 1 TD/TT: Weatherization Specialist: [facility]Jesus HealthcareRadiology Study observation (narrative)[facility] HospitalXR WRIST LT MIN 3 VOrdered By: Radiologist Radiology on 65-75-7435ANDW Healthcare Work Phone: XR WRIST LT MIN 3 Von 10-12-0194[place], [place] [address] XRay Report Signed Patient: SHARRI COONEY MR#: [id number] : 1950 Acct:[id number] Age/Sex: 73 / F ADM Date: 05/08/24 Loc: EC Attending Dr: Tiffanie Villanueva M.D. Ordering Physician: Tiffanie Villanueva M.D. Date of Service: 05/08/24 Procedure(s): XR wrist LT min 3V Accession Number(s): [id number] cc: RYAN RUIZ ; Tiffanie Villanueva M.D. The [address] [address] Patient Name: SHARRI COONEY MRN: [id number]:[id number] date: 1950 Sex: F Assigned Patient Location: Current Patient Location: Accession/Order Number: [id number] Exam Date: 05/08/2024 07:55 Report Date: 05/09/2024 [...] Signed By: 05/09/24 1015 DD/ 1013 TD/TT: Weatherization Specialist:CHARLESHRadiology, Radiologist, - 05/09/2024 [place] [address] XRay Report Signed Patient: SHARRI COONEY MR#: [id number] : 1950 Acct:[id number] Age/Sex: 73 / F ADM Date: 05/08/24 Loc: Attending Dr: Tiffanie Villanueva M.D. Ordering Physician: Tiffanie Villanueva M.D. Date of Service: 05/08/24 Procedure(s): XR wrist LT min 3V Accession Number(s): [id number] cc: RYAN RUIZ ; Tiffanie Villanueva M.D. The [place] [address] Patient Name: SHARRI COONEY MRN: [id number] date: 1950 Sex: F Assigned Patient Location: Current Patient Location: Accession/Order Number: [id number] Exam Date: 05/08/2024 07:55 Report Date: 05/09/2024 [...] Signed By: 05/09/24 1015 DD/ 1013 TD/TT: Weatherization Specialist: [facility] HealthcareRadiology Study observation (narrative)[facility] HealthcareXR WRIST LT MIN 3 VOrdered By: Radiologist Radiology on 50-36-4265TQFZ Healthcare Work Phone: XR WRIST LT MIN 3 Von 46-76-3571[place], [place] [address] XRay Report Signed Patient: SHARRI COONEY MR#: [id number] : 1950 Acct:[id number] Age/Sex: 73 / F ADM Date: 04/10/24 Loc: Attending Dr: Tiffanie Villanueva M.D. Ordering Physician: Tiffanie Villanueva M.D. Date of Service: 04/10/24 Procedure(s): XR wrist LT min 3V Accession Number(s): [id number] cc: RYAN RUIZ ; Tiffanie Villanueva M.D. The [place] [id number] Patient Name: SHARRI COONEY MRN: [id number]:[id number] date: 1950 Sex: F Assigned Patient Location: Current Patient Location: Accession/Order Number: [id number] Exam Date: 04/10/2024 07:35 Report Date: 04/10/2024 [...] By: Rafiq Hammond M.D. Signed By: 04/10/24 1408 DD/ 1358 TD/TT: Weatherization Specialist:TBHRadiology, Radiologist, MD - 04/10/2024 [place] [address] XRay Report Signed Patient: SHARRI COONEY MR#: [id number] : 1950 Acct:[id number] Age/Sex: 73 / F ADM Date: 04/10/24 Loc: Attending Dr: Tiffanie Villanueva M.D. Ordering Physician: Tiffanie Villanueva M.D. Date of Service: 04/10/24 Procedure(s): XR wrist LT min 3V Accession Number(s): [id number] cc: RYAN RUIZ ; Tiffanie Villanueva M.D. The [place] [address] Patient Name: SHARRI COONEY MRN: [facility]:[id number] date: 1950 Sex: F Assigned Patient Location: Current Patient Location: Accession/Order Number: [id number] Exam Date: 04/10/2024 07:35 Report Date: 04/10/2024 [...] By: Rafiq Hammond M.D. Signed By: 04/10/24 1404 DD/ 0102 TD/TT: Weatherization Specialist: NOMJesus HealthcareRadiology Study observation (narrative)[facility] HealthcareXR WRIST LT MIN 3 VOrdered By: Radiologist Radiology on 86-56-8647HJAB Healthcare Work Phone: XR WRIST LT MIN 3 Von 43-38-3322Aje[place], [place] [address] XRay Report Signed Patient: SHARRI COONEY MR#: [id number] : 1950 Acct:[id number] Age/Sex: 73 / F ADM Date: 04/03/24 Loc: EC Attending Dr: Tiffanie Villanueva M.D. Ordering Physician: Tiffanie Villanueva M.D. Date of Service: 04/03/24 Procedure(s): XR wrist LT min 3V Accession Number(s): [id number] cc: RYAN RUIZ ; Tiffanie Villanueva M.D. [place] [address] Patient Name: SHARRI COONEY MRN: [id number] date: 1950 Sex: F Assigned Patient Location: Current Patient Location: Accession/Order Number: [id number] Exam Date: 04/03/2024 09:54 Report Date: 04/04/2024 [...] Donahue M.D. Signed By: 04/04/2446 DD/ TD/TT: Weatherization Specialist:TBHRadiology, Radiologist, - 04/04/2024 [place] [address] XRay Report Signed Patient: SHARRI COONEY MR#: [id number] : 1950 Acct:[id number] Age/Sex: 73 / F ADM Date: 04/03/24 Loc: EC Attending Dr: Tiffanie Villanueva M.D. Ordering Physician: Tiffanie Villanueva M.D. Date of Service: 04/03/24 Procedure(s): XR wrist LT min 3V Accession Number(s): [id number] cc: RYAN RUIZ ; Tiffanie Villanueva M.D. [address] [place] [address] Patient Name: SHARRI COONEY MRN: [id number] date: 1950 Sex: F Assigned Patient Location: Current Patient Location: Accession/Order Number: [id number] Exam Date: 04/03/2024 09:54 Report Date: 04/04/2024 [...] Dictated By: Tiffanie Donahue M.D. Signed By: 04/04/24545 DD/ 3 TD/TT: Weatherization Specialist: GADIEL HealthcareRadiology Study observation (narrative)NOMJesus HealthcareXR WRIST LT MIN 3 VOrdered By: Radiologist Radiology on 09-50-6853JFAB Healthcare Work Phone: aLL LIPID PROFILE (FASTING)on 37-58-7537MMXE HDL RATIO 2.4NOMS HealthcareComment on above:3.3 - 4.4 LOW RISK 4.4 - 7.1 AVERAGE RISK 7.1 - 11.0 MODERATE RISK >11.0 HIGH RISK Cholesterol [Mass/Vol]154 mg/dLNINF - 200 mg/dLNOIL HealthcareCholesterol in HDL [Mass/Vol]63 mg/xNEucf11 - 60 mg/dLNOIL HealthcareComment on above:> or =60 mg/dl - LOW CARDIOVASCULAR RISK <40 mg/dl - HIGH CARDIOVASCULAR RISK Interpretation and review of laboratory resultsAbnormalNOIL HealthcareMagnesium [Mass/Vol]81.0 mg/dLNOIL HealthcareComment on above:<100 mg/dl OPTIMAL 100-129 mg/dl NEAR OR ABOVE OPTIMAL 130-159 mg/dl BORDERLINE HIGH 160-189 mg/dl HIGH >190 mg/dl VERY HIGH Magnesium [Mass/Vol]10.4 mg/dLNOMS HealthcareTriglyceride [Mass/Vol]52 mg/dLNINF - 150 mg/dLNOIL HealthcareCLINISYNCNOMS HealthcareMM TOMOSYNTHESIS SCREENING BI on 73-05-4318[place], [place] [address] Mammography Report Signed Patient: SHARRI COONEY MR#: [id number] : 1950 Acct:[id number] Age/Sex: 73 / F ADM Date: 02/17/24 Loc: MAMMO Attending Dr: Theo Ley D.O. Ordering Physician: Theo Ley D.O. Results: Date of Service: 02/17/24 Follow Up: Procedure(s): MM tomosynthesis screening BI Accession Number(s): [id number] cc: RYAN RUIZ ; Theo Ley D.O. Patient Name: SHARRI COONEY MR#: [id number] : 1950 Exam Date: 02/17/2024 Ordering Doctor: [...] prostate cancer at age 60. LOCATION: [facility] BREAST COMPOSITION: The breasts are heterogeneously dense,which [...] PALPABLE LUMP SHOULD BE BIOPSIED. Dictated by: Tiffanie Donahue M.D. on 02/18/2024 at 09:55 Approved by: Tiffanie Donahue M.D. on 02/18/2024 at 09:56 Dictated By: Tiffanie Donahue M.D. Signed By: 02/18/24 0957 DD/ 0956 TD/TT: Weatherization Specialist:TBHRadiology, Radiologist, MD - 02/18/2024 [place] [address] Mammography Report Signed Patient: SHARRI COONEY MR#: [id number] : 1950 Acct:[id number] Age/Sex: 73 / F ADM Date: 02/17/24 Loc: MAMMO Attending Dr: Theo Ley D.O. Ordering Physician: Theo Ley D.O. Results: Date of Service: 02/17/24 Follow Up: Procedure(s): MM tomosynthesis screening BI Accession Number(s): [id number] cc: RYAN RUIZ ; Theo Ley D.O. Patient Name: SHARRI COONEY MR#: [id number] : 1950 Exam Date: 02/17/2024 Ordering Doctor: [...] prostate cancer at age 60. LOCATION: [facility] BREAST COMPOSITION: The breasts are heterogeneously dense,which [...] PALPABLE LUMP SHOULD BE BIOPSIED. Dictated by: Tiffanie Donahue M.D. on 02/18/2024 at 09:55 Approved by: Tiffanie Donahue M.D. on 02/18/2024 at 09:56 Dictated By: Tiffanie Donahue M.D. Signed By: 02/18/24 0957 DD/ 0956 TD/TT: Weatherization Specialist: GADIEL HealthcareRadiology Study observation (narrative)[facility] TOMOSYNTHESIS SCREENING BIOrdered By: Radiologist Radiology on 22-77-8522CJJZ Healthcare Work Phone: nm ANGELI PERF SPECT REST STRon 37-16-9566Wal[place], [place] [address] Nuclear Medicine Report Signed Patient: SHARRI COONEY MR#: [id number] : 1950 Acct:[id number] Age/Sex: 73 / F ADM Date: 11/23/23 Loc: PA Attending Dr: PRETTY ALEMAN APRN Ordering Physician: PRETTY ALEMAN APRN Date of Service: 11/23/23 Procedure(s): NM angeli perf SPECT rest str Accession Number(s): [id number] cc: RYAN RUIZ ; PRETTY ALEMAN APRN Patient Name: SHARRI COONEY MR#: [id number] : 1950 Exam Date: 11/23/2023 Ordering Doctor: [...] 2. Pending exercise test results Dictated by: Rafiq Hammond MD on 11/24/2023 at 15:30 Approved by: Rafiq Hammond MD on 11/24/2023 at 15:31 Dictated By: Rafiq Hammond M.D. Signed By: 11/24/23 1532 DD/ 1531 TD/TT: Weatherization Specialist:CHARLESHRadiology, Radiologist, - 11/24/2023 [place] [address] Nuclear Medicine Report Signed Patient: SHARRI COONEY MR#: [id number] : 1950 Acct:[id number] Age/Sex: 73 / F ADM Date: 11/23/23 Loc: PA Attending Dr: PRETTY ALEMAN APRN Ordering Physician: PRETTY ALEMAN APRN Date of Service: 11/23/23 Procedure(s): NM angeli perf SPECT rest str Accession Number(s): [id number] cc: RYAN RUIZ ; PRETYT ALEMAN APRN Patient Name: SHARRI COONEY MR#: [id number] : 1950 Exam Date: 11/23/2023 Ordering Doctor: PRETTY ALEMAN [facility] RADIOLOGY REPORT PROCEDURE: NM ANGELI PERF SPECT [...] 2. Pending exercise test results Dictated by: Rafiq Hammond MD on 11/24/2023 at 15:30 Approved by: Rafiq Hammond MD on 11/24/2023 at 15:31 Dictated By: Rafiq Hammond M.D. Signed By: 11/24/231531 DD/ 30 TD/TT: Weatherization Specialist: [facility] HospitalRad[facility] Study observation (narrative)[facility] ANGELI PERF SPECT REST STROrdered By: Radiologist Radiology on 68-38-4358VZMUSaint Louis University Hospital Work Phone: cOVID/FLU RT-PCRon 38-24-7195XTTD-CoV-2 (COVID-19) RNA VERONICA+probe Ql (Unsp spec)PositiveNoMagee Rehabilitation Hospital ThumbAd Other COVID/FLU RT-PCRNegativeNowashington county memorial hospital Therma-Wave Other SGOTon 11-37-8503TLL [Catalytic activity/Vol]45 U/L Critically czol32-69JgbMercy Health St. Vincent Medical CenterComment on above:Performed By: #### ALT, AST #### [facility] [address] [address] [address] Fred Hanson 54-17-9812EMV [Catalytic activity/Vol]48 U/RGdmytq55-80JrxOur Lady of Mercy Hospital - Andersonment on above:Performed By: #### ALT, AST #### [facility] [address] [address] [address] Fred Nickerson 26-28-1523NTX [Catalytic activity/Vol]40 U/LCritically jpvw76-43NmxMercy Health St. Vincent Medical CenterComselect specialty hospital-flint on above:Performed By: #### ALT, AST #### [facility] [address] [address] [address] Fred Hanson 07-00-0643QNO [Catalytic activity/Vol]52 U/XAgqhla93-22UvoMercy Health St. Vincent Medical CenterComment on above:Performed By: #### ALT, AST #### [facility] [address] [place] [address] Dr. Fred Sanford Skeletal system Views for bone densityon 45-55-8787sdanuhlsfd [facility] HealthcareRadiology Study observation (narrative)[facility] HospitalXR DEXA BONE DENSITYon 63-62-2964CP DEXA BONE DENSITYDEXA Bone Density Study CLINICAL: Evaluate bone mineral density. Postmenopausal COMPARISON: FINDINGS: The bone density study was assessed by dual-energy x-ray absorptiometry with the Shoot Extreme scanner. The test results are expressed in [...] Electronically authenticated by: RAFIQ SEALS Date: 2022-08-25 09:[address] [place], [place] [address]BNPon 61-87-0946Qjlnoxsrsmr peptide B (Bld) [Mass/Vol]87.0 pg/mLNormal<=900.0The [facility] Hospitalment on above:Performed By: #### TSH, CMP, BNP, CMADM ####[facility] [address] [place] [address]Dr. Fred BowlingDIAC JASSI ADMITon 49-44-6751CL [Catalytic activity/Vol]152 U/QKznchb62-662Owy [facility] Hospitalment on above:Performed By: #### TSH, CMP, BNP, CMADM ####[facility] [address] [place], [place] [address]DrCaroline JacksonCK.MB [Mass/Vol]2.96 ng/mLNormal<=3.60 [facility] on above:Performed By: #### TSH, CMP, BNP, CMADM ####[facility] [address] [place], [place] [address]Dr. Fred JacksonHSTROP6.1 pg/mLNormal4.0-51.3The [facility] on above: Result Comment: CUT-OFF POINTS HAVE BEEN ESTABLISHED BASED ON THE FOURTH UNIVERSAL DEFINITIONS OF MYOCARDIAL INFARCTION. THE UPPER REFERENCE LIMIT (URL) OF TROPONIN, DEFINED THE 99TH PERCENTILE OF cTnI DISTRIBUTION IN A REFERENCE POPULATION, HAS BEEN CONFIRMED THE DECISION THRESHOLD FOR [place] DIAGNOSIS.Performed By: #### TSH, CMP, BNP, CMADM ####[facility] [address] [place], [place] [address]Dr. Fred JacksonMYO80 ng/mL Normal9-82The Pankaj HospitalComment on above:Performed By: #### TSH, CMP, BNP, CMADM ####[facility] [address] [place] [address]Dr. Fred Cuevas AUTO DIFFon 54-52-3013DQCL #0.1 103/ulNormal0.0-0.1The [facility] HealthComment on above:Performed By: #### CBC #### [facility] [address] [address] [address] Fred JacksonBasophils/100 WBC (Bld)1.4 %Normal0.2-2.0[facility] Comment on above:Performed By: #### CBC #### [facility] [address] [place] [address] Dr. Fred Giang #0.3 103/ulNormal0.0-0.7The Premier HealthComment on above: Performed By: #### CBC #### [facility] [address] [place] [address] Dr. Fred Montes De Ocaosinophils/100 WBC (Bld)3.1 %Normal0.9-7.0[facility] Comment on above:Performed By: #### CBC #### [facility] [address] [place] [address] Dr. Fred Montes De Ocarythrocyte distribution width (RBC) [Ratio]12.0 %Ruwvov46.0-15.0 The Premier HealthComment on above:Performed By: #### CBC #### [facility] [address] [place] [address] Dr. Fred JacksonHematocrit (Bld) [Volume fraction]40.5 %Yafrjo08.0-48.0The Premier HealthComment on above:Performed By: #### CBC #### [facility] [address] [place] [address] Dr. Fred JacksonHemoglobin (Bld) [Mass/Vol]13.8 g/gMKdlvtg69.0-16.0The Premier HealthComment on above:Performed By: #### CBC #### [facility] [address] [address] [address] Fred Rosario #0.06 10e3/ulCritically high0.00-0.03[facility] Comment on above:Performed By: #### CBC #### [facility] [address] [place] [address] Dr. Fred Rosario %0.6 %Critically high0.0-0.5The [facility] HealthComment on above:Performed By: #### CBC #### [facility] [address] [place] [address] Dr. Fred Childers #3.8 103/ulNormal1.2-3.8The Premier HealthComment on above:Performed By: #### CBC #### [facility] [address] [place] [address] Dr. Fred Lawrencehocytes/100 WBC (Bld)36.6 %Djuzsc73.5-60.0The [facility] HealthComment on above:Performed By: #### CBC #### [facility] [address] [place] [address] Dr. Fred FarleyST. ELIZAB[facility] DIFF REQNONormalThe Premier HealthComment on above: Performed By: #### CBC #### [facility] [address] [place] [address] Dr. Fred Chester (RBC) [Entitic mass]31.2 cgLdxwjk25.7-34.0The [facility] HealthComment on above:Performed By: #### CBC #### [facility] [address] [place] [address] Dr. Fred Chester (RBC) [Mass/Vol]34.1 g/sMYhwyhg19.9-35.2The [facility] HealthComment on above:Performed By: #### CBC #### [facility] [address] [place] [address] Dr. Fred Chester (RBC) [Entitic vol]91.6 fALxtlkc74.0-99.0The [facility] HealthComment on above:Performed By: #### CBC #### [facility] [address] [place] [address] Dr. Fred Fu #1.2 103/ulCritically high0.3-0.8The [facility] Comment on above:Performed By: #### CBC #### [facility] [address] [place] [address] Dr. Fred Hammondsocytes/100 WBC (Bld)11.3 %Normal1.7-12.0[facility] Comment on above:Performed By: #### CBC #### [facility] [address] [place] [address] Dr. Fred Aguirre #4.9 103/ulNormal1.4-6.5The [facility] HealthComment on above:Performed By: #### CBC #### [facility] [address] [place] [address] Dr. Fred Zarateutrophils/100 WBC (Bld)47.0 %Ysqluk77.0-75.0The [facility] HealthComment on above:Performed By: #### CBC #### [facility] [address] [place] [address] Dr. Fred Cowart mean volume (Bld) [Entitic vol]8.9 fLCritically low 9.5-13.5The [facility] HealthComment on above:Performed By: #### CBC #### [facility] [address] [place] [address] Dr. Fred MckinneyT404 103/acTfcjez960-623Bye [facility] HealthComment on above: Performed By: #### CBC #### [facility] [address] [place] [address] Dr. Fred JacksonRBC4.42 106/ulNormal4.20-5.40The [facility] HealthComment on above:Performed By: #### CBC #### [facility] [address] [place] [address] Dr. Fred JacksonWBC10.3 103/ulNormal4.0-11.0The [facility] HealthComment on above:Performed By: #### CBC #### [facility] [address] [place] [address] Dr. Fred Gonzales 14(COMP METB)on 12-58-9793Gcleghr [Mass/Vol]4.3 g/dLNormal 3.4-5.0The Premier HealthComment on above:Performed By: #### TSH, CMP, BNP, CMADM ####[facility] [address] [place] [address]Dr. Fred JacksonAlbumin/Globulin [Mass ratio]1.2 {ratio}NormalThe Premier HealthComment on above:Performed By: #### TSH, CMP, BNP, CMADM ####[facility] [address] [place] [address]Dr. Fred JacksonALP [Catalytic activity/Vol]96 U/LTjxnyq83-500Eyu [facility] HealthComment on above: Performed By: #### TSH, CMP, BNP, CMADM ####[facility] [address] [place] [address]Dr. Fred JacksonALT [Catalytic activity/Vol] 34 U/VPaezxi10-00Vqk [facility] HealthComment on above:Performed By: #### TSH, CMP, BNP, CMADM ####[facility] [address] [place], [place] [address]Dr. Fred JacksonAnion gap [Moles/Vol]16.6 mmol/LNormalThe [facility] HealthComment on above:Performed By: #### TSH, CMP, BNP, CMADM ####[facility] [address] [place] [address]Dr. Fred ChangAST [Catalytic activity/Vol]39 U/LCritically rwil89-13Jbn [facility] HealthComment on above:Performed By: #### TSH, CMP, BNP, CMADM ####[facility] Yndgg[address]wiy[address] [place], [place] [address]Dr. Fred JacksonBilirubin [Mass/Vol]0.8 mg/dLNormal0.2-1.0The [facility] HealthComment on above:Performed By: #### TSH, CMP, BNP, CMADM ####[facility] [address] [place], [place] [address]Dr. Yilan ChangCalcium [Mass/Vol]10.1 mg/dLNormal 8.5-10.1The [facility] on above:Performed By: #### TSH, CMP, BNP, CMADM ####[facility] [address] [place] [address]Dr. Yilan ChangChloride [Moles/Vol]91 mmol/LCritically dde50-881Ulr [facility] HealthComselect specialty hospital-[facility] on above:Performed By: #### TSH, CMP, BNP, CMADM ####[facility] [address] [place] [address]Dr. Yilan ChangCO2 [Moles/Vol]25.5 mmol/WIuggfk93.0-32.0The [facility] on above:Performed By: #### TSH, CMP, BNP, CMADM ####[facility] [address] [place], [place] [address]Dr. Yilan ChangCreatinine [Mass/Vol]0.95 mg/dLNormal0.55-1.02The [facility] on above: Performed By: #### TSH, CMP, BNP, CMADM ####[facility] [address] [place], [place] [address]Dr. Yilan ChangEGFR-AF SPANISH>60Normal>=60 [facility] on above:Performed By: #### TSH, CMP, BNP, CMADM ####[facility] [address] [place], [place] [address]Dr. Yilan ChangEGFR-NON AF DMLNCLTQ93 mL/min/1.57d0Szcllnijrj low>=60The [facility] on above:Performed By: #### TSH, CMP, BNP, CMADM ####[facility] [address]ds[address] [place], [place] [address]Dr. Yilan Jackson Globulin (S) [Mass/Vol]3.6 g/dLNormalThe [facility] HealthComselect specialty hospital-flint on above: Performed By: #### TSH, CMP, BNP, CMADM ####[facility] [address] [place], [place] [address]Dr. Yilan ChangGlucose [Mass/Vol]116 mg/dL Critically hztz84-726Rmc [facility] HealthComment on above:Performed By: #### TSH, CMP, BNP, CMADM ####[facility] [address] [place] [address]Dr. Yilan ChangPotassium [Moles/Vol]3.1 mmol/L Critically low3.5-5.1The Premier HealthComment on above:Performed By: #### TSH, CMP, BNP, CMADM ####[facility] [address] [place], [place] [address]Dr. Yilan ChangProtein [Mass/Vol]7.9 g/dLNormal6.4-8.2 The Premier HealthComment on above:Performed By: #### TSH, CMP, BNP, CMADM ####[facility] [address]pt[address] [place], [place] [address]Dr. Yilan ChangSodium [Moles/Vol]130 mmol/LCritically tmm864-056Jhq [facility] HealthComment on above:Performed By: #### TSH, CMP, BNP, CMADM ####[facility] [address] [place], [place] [address]Dr. Yilan ChangUrea nitrogen [Mass/Vol]17.0 mg/dLNormal7.0-18.0The [facility] Hospitalment on above:Performed By: #### TSH, CMP, BNP, CMADM ####[facility] [address] [place], [place] [address]Dr. Yilan ChangUrea nitrogen/Creatinine [Mass ratio]17.9 mg/mgNormalThe [facility] HealthComment on above:Performed By: #### TSH, CMP, BNP, CMADM ####[facility] [address] [place], [place] [address]Dr. Yilan ChangPROTIMEon 24-85-8666GOG Coag (PPP) [Relative time]1.01 {INR}NormalThe [facility] Comment on above:Performed By: #### PTT, PT ####[facility] [address] [place], [place] [address]Dr. Yilan ChangINR GUIDELINESSEE BELOWNormal [facility] on above:Result Comment: DESIRED INR: 2.0 - 3.0 CONDITIONS NOT LISTED BELOW 2.5 - 3.5 FOR PROSTHETIC HEART VALVE REPLACEMENT 2.5 - 3.5 RECURRENT THROMBOSISPerformed By: #### PTT, PT ####[facility] [address] [address]Dr. Fred JacksonPT Coag (PPP) [Time]10.7 sNormal9.0-11.6The [facility] HealthComment on above:Performed By: #### PTT, PT ####[facility] [address] [address]DrCaroline JacksonPTTon 11-06-0828oWBG Coag (Bld) [Time]33.9 lCbgkav64.3-36.2 [facility] on above:Performed By: #### PTT, PT ####[facility] [address] [address]DrCaroline Jackson TROPONIN, HIGH SENSITIVITYon 02-10-8212XLEEYI62.1 pg/mLNormal4.0-51.3The [facility] HealthComselect specialty hospital-[facility] on above:Result Comment: CUT-OFF POINTS HAVE BEEN ESTABLISHED BASED ON THE FOURTH UNIVERSAL DEFINITIONS OF MYOCARDIAL INFARCTION. THE UPPER REFERENCE LIMIT (URL) OF TROPONIN, DEFINED THE 99TH PERCENTILE OF cTnI DISTRIBUTION IN A REFERENCE POPULATION, HAS BEEN CONFIRMED THE DECISION THRESHOLD FOR [place] DIAGNOSIS.Performed By: #### HSTROPN #### [facility] [address] [address] [address] Fred BrodyHosaulo 90-78-0193YOM8.364 uIU/mLCritically high0.358-3.740[facility] on above:Performed By: #### TSH, CMP, BNP, CMADM ####[facility] [address] [address]Dr. Fred JacksonXR CHEST 1 Von 25-72-2799FD CHEST 1 VEXAM: XR CHEST 1 V HISTORY: CHEST PAIN, [...] Electronically authenticated by: DALI MYERS Date: 2022-08-16 00:02[facility] CenterCovid-19 PCR (CVDTBH)on 35-71-7308PPFY-CoV-2 (COVID-19) RNA VERONICA+probe Ql (Unsp spec)DetectedCritically abnormalNOT DETECTEDThe [facility] HealthComment on above:Result Comment: This test is not yet approved or cleared by the [place] FDA. When there are no FDA-approved or cleared tests available, and other criteria are met, FDA can make tests available under an emergency access mechanism called an Emergency Use Authorization (EUA). The EUA for this test is supported by the Glove Maker of Health and Human Service's (HHS's) declaration [...] no longer be used). Performed By: #### CVDTB ####[facility] [address] [place], [place] [address]Oy. Fred Guerrier CAROTID ART BILon 11-08-2047UL CAROTID ART BILEXAMINATION: US CAROTID ART JASMEET HISTORY: Cardiovascular symptoms [...] within thyroid gland. Electronically authenticated by: TIFFANIE DONAHUE Date: 2022-03-12 14:51[facility] Medical CenterMG MAMM SCREEN 3D JASMEET CADon 67-23-7330TM MAMM SCREEN 3D JASMEET CAD Patient: SHARRI COONEY Exam Date: 02/09/2022 : 1950 Gender:F Ordering : DR RINKU PETERSON . Admission #: [id number] Family : Order #: [id number] CLICK HERE TO VIEW EXAM RADIOLOGY REPORT [...] prostate cancer at age 60. LOCATION: [facility] BREAST COMPOSITION: Heterogeneously dense,which may obscure small [...] LUMP SHOULD BE BIOPSIED. Dictated by: Rafiq Hammond MD on 02/09/2022 at 09:48 Approved by: Rafiq Hammond MD on 02/09/2022 at 09:50[facility] Coding Summary.on 83-51-3840Iktsnj Summary. CD:[id number]:[id number]+PGhlYWQ+CB0GEPZaT00hzTXdfB8XW8lGZL8CKANADVMLHI3TTN5la EE7BFpfE4QzcaSh [file] bGxh (more content not included)...NormalFishMeritus Medical CenterPhysician Orderon 72-64-8428Usbmbprsb Order [id number]:127NoP[facility]rene Hospital Vital Signs Date TimeVital SignValuePerforming CrrafnvxqHldjuoke22-15-4917 09:58-0400Body .4 cmRyan Ruiz MD Work Phone: [phone] Memorial HospitalVtkpfckycn93-54-5469 09:58-0400Body mass index (BMI) [Ratio]25.97 kg/g1HyvmprRyan Ruiz MD Work Phone: [phone] Memorial HospitalQgxjezrjga84-08-1198 09:58-0400Body hxembp18.33 kgRyan Ruiz MD Work Phone: [phone] Memorial HospitalPpvlcnetwz13-64-2696 09:58-0400Diastolic blood bisukhce62 mm[Hg]Ryan Ruiz MD Work Phone: [phone] Memorial HospitalNrbvzffrqk90-86-8750 09:58-0400Heart rate68 /min Ryan Ruiz MD Work Phone: [phone] Memorial HospitalFkdsihvywl87-41-7530 09:58-8616PoA2% (BldA) [Mass fraction]97 %Ryan Ruiz MD Work Phone: [phone] Memorial HospitalXvwxhoffdv47-75-8116 09:58-0400Systolic blood psyrajju072 mm[Hg]Ryan Ruiz MD Work Phone: [phone] Memorial HospitalIjjmdsumfd48-31-9951 10:01-0400Body qjbifj469.4 cmDwayen Chamberlain ANALYTICS INTERN Work Phone: [phone] Memorial HospitalNuqxhfdych88-87-0354 10:01-0400Body mass index (BMI) [Ratio]25.97 kg/m2Dwayne Chamberlain ANALYTICS INTERN Work Phone: [phone] Memorial HospitalHvugscxhap04-06-5737 10:01-0400Body udwizv50.33 kgDwayne Chamberlain ANALYTICS INTERN Work Phone: [phone] Memorial HospitalXrxtmrbrxk38-54-8150 10:01-0400Diastolic blood vgafzvgj65 mm[Hg]Dwayne Chamberlain ANALYTICS INTERN Work Phone: [phone] Memorial HospitalIwnruzkicq91-86-4509 10:01-0400Heart rate78 /min Dwayne Chamberlain ANALYTICS INTERN Work Phone: [phone] Memorial HospitalDnxzsyiygc88-97-5672 10:01-3726XjJ7% (BldA) [Mass fraction]96 %Dwayne Chamberlain ANALYTICS INTERN Work Phone: NOEllett Memorial HospitalYfepsblijf15-08-9598 10:01-0400Systolic blood mm[Hg]Dwayne Chamberlain ANALYTICS INTERN Work Phone: NOEllett Memorial HospitalLgonhnpuvs45-25-3923 11:30-0500Body mass index (BMI) [Ratio]26.25 kg/u0Evssv Jil DO Work Phone: NOEllett Memorial HospitalDugbzuyuzl51-40-8241 11:30-0500Body tphqaa39.96 kgCorey Jil DO Work Phone: NOEllett Memorial HospitalQbwwizuutn99-20-4754 11:30-0500Diastolic blood zvgkcusa88 mm[Hg]Theo Jil DO Work Phone: NOEllett Memorial HospitalIfdjaxjaop95-02-3494 11:30-0500Systolic blood ukwkwxqm793 mm[Hg]Theoana Whiteo DO Work Phone: [facility] HospitalRakkzdmpbq79-67-7750 08:25-0400Body pyeawp443.4 cmRyan Ruiz MD Work Phone: NOEllett [facility] HospitalAkgfrxvtms61-60-3960 08:25-0400Body mass index (BMI) [Ratio]25.58 kg/e2VfadxgRyan Ruiz MD Work Phone: NOEllett Memorial HospitalOfqpiemxcc31-87-3293 08:25-0400Body wdearp81.42 kgRyan Ruiz MD Work Phone: NOEllett [facility] HospitalWxbvhcmqpd83-53-3750 08:25-0400Diastolic blood zrrzptfi09 mm[Hg]Ryan Ruiz MD Work Phone: NOEllett Memorial HospitalYlwaybgleu78-99-9114 08:25-0400Heart rate62 /min Ryan Ruiz MD Work Phone: [facility]El[facility] HospitalZdwimkezzz65-95-3932 08:25-7605SoL9% (BldA) [Mass fraction]98 %Ryan Ruiz MD Work Phone: NOEl[facility] HospitalJftaeawfpe33-74-4315 08:25-0400Systolic blood pbrngybd201 mm[Hg]Ryan Ruiz MD Work Phone: NOEl[facility] HospitalAypofhiusp34-05-2412 12:20-0400Body mkraid376.67 cmThomas Neha Other [employer] Other 10-19-2023 12:20-0400Body mass index (BMI) [Ratio] 24.58 kg/d7Jtwdqt Neha Other [employer] Other 10-19-2023 12:20-0400Body vsfksrdvwry54.3 [degF]Broderick Solomon Other [employer] Other 10-19-2023 12:20-0400Body fsnatk51.06 kgThomas Neha Other [employer] Other 10-19-2023 12:20-0400Respiratory rate18 /minThomas Neha Other [employer] Other 10-19-2023 12:20-9383MfI4% (BldA) [Mass fraction]96 % Broderick Solomon Other [employer] Other Encounters Encounter DateEncounter TypeCare ProviderFacilityStart: 80-43-4747qzkrrfccqeWLYWTriHealth Bethesda Butler Hospitaltart: 32-81-7046aapsejssypGSTCHolmes County Joel [facility] Memorial Hospitaltart: 02-19-2025 End: 64-98-2483Zfximwdib Result EncounterGeneric External Data ProviderNOMS External Department UnsolicitedStart: 02-19-2025 End: 79-60-1143Hnaajujxe Result EncounterGeneric External Data ProviderNOMS External Department UnsolicitedStart: 91-37-8769oqiinkcnilKHGYSelect Medical TriHealth Rehabilitation Hospitaltart: 69-62-8471oqvkqvkdlxZASMSelect Medical TriHealth Rehabilitation Hospitaltart: 93-50-4609yyspqtdedoAQKDSelect Medical TriHealth Rehabilitation Hospitaltart: 01-15-2025 End: 25-23-3807Blidluaraceli Ruiz MD Work Phone: NOMS CI FMStart: 01-15-2025 End: 48-35-2587Umgzgu Martine Ruiz MD Work Phone: NOMS CI FMStart: 01-15-2025 End: 18-54-9886Yxyako outpatient visit 15 minutesDasavi Ruiz MD Work Phone: NOMS CI FMComment on above:Tendonitis of wrist, left (Primary Dx); Fall at home, sequelaStart: 01-15-2025 End: 93-03-5327sixlnsmglqJRYHRE B BERRYNot AvailableStart: 76-93-5829brzqgfyorz PAUL [facility] Hospitaltart: 20-98-2546gvczxfxdlnYKVOSelect Medical TriHealth Rehabilitation Hospitaltart: 09-14-2024 End: 13-23-6482Tdgejn Asif Chamberlain ANALYTICS INTERN Work Phone: NOMS CI FMStart: 09-14-2024 End: 46-32-6853Bfkaly Asif Chamberlain ANALYTICS INTERN Work Phone: NOMS CI FMStart: 09-14-2024 End: 27-78-6638tacteucdhrBAH C MILLERNot AvailableStart: 09-14-2024 End: 12-16-8209Zqbkc of hemosiderin, Christian Chamberlain ANALYTICS INTERN Work Phone: NOMS HealthcareStart: 09-14-2024 End: 49-97-8882Wgwqcwt encounter Jody Chamberlain ANALYTICS INTERN Work Phone: NOMS CI FMComment on above:Medicare annual wellness visit, subsequent (Primary Dx); ACP (advance care planning); Encounter for screening for malignant neoplasm of colon; Paroxysmal atrial fibrillation (CMS/HCC); 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/HCC); Nonrheumatic mitral valve regurgitation; Pulmonary hypertension (CMS/HCC); Nonobstructive atherosclerosis of coronary artery (CMS/HCC); Osteopenia of multiple sites; Mixed hyperlipidemia (CMS/HCC); Routine general medical examination at health care facilityStart: 07-31-2024 End: 76-03-8808Chyfglmsh Result EncounterGeneric External Data ProviderNOMS External Department UnsolicitedStart: 07-31-2024 End: 38-94-6690Dfwcpggdk Result EncounterGeneric External Data ProviderNOMS External Department UnsolicitedStart: 07-27-2024 End: 42-29-8047tznhmgfktaIFEA [facility] Hospitaltart: 83-37-3747hjfuorpodfUIKKTriHealth Bethesda Butler Hospitaltart: 44-11-0631Kmmgiyirk for preprocedural cardiovascular examinationMercy Health Urbana Hospitaltart: 06-13-2024 End: 05-87-2624Hcjpjx arcbazar.comlucastommy Armencooper university hospital OT Work Phone: NOMS CI PTStart: 06-13-2024 End: 93-27-3764Oznobc X[employer] TechnologiesWVUMedicine Barnesville Hospitaleliza Ayerscooper university hospital OT Work Phone: noms CI PTStart: 06-13-2024 End: 92-72-3890sslhgpmnzsJtklxjvc Blacksco[facility] OT Work Phone: NOMS CI PTComment on above:Oth intartic fracture of lower end of left radius, init (Primary Dx); Left wrist painStart: 53-78-3885ijbqznuhfiLIFNTriHealth Bethesda Butler Hospitaltart: 06-09-2024 End: 30-08-5626trelsztejiQlwzxt [place] OT Work Phone: noms CI PTComment on above:Oth intartic fracture of lower end of left radius, init (Primary Dx)Start: 06-06-2024 End: 10-85-4335Sqbvglmga Result EncounterGeneric External Data ProviderNOMS External Department UnsolicitedStart: 06-06-2024 End: 47-23-0415Ysdmxppwa Result EncounterGeneric External Data ProviderNOMS External Department UnsolicitedStart: 06-05-2024 End: 05-49-5395Zbtrgv flowsheetCorey Jil DO Work Phone: noms BCP OBStart: 06-05-2024 End: 59-68-8036Larzxm flowsheetCorey Jil DO Work Phone: noms BCP OBStart: 06-05-2024 End: 55-59-1922Qsxivvlnt Result EncounterCorey Jil DO Work Phone: noms External Department UnsolicitedStart: 06-05-2024 End: 15-45-4887Qnsdavi encounter procedureCorey Jil DO Work Phone: [facility] Work Phone: Start: 06-05-2024 End: 27-32-2944Aupmyeni preventive med est patient 65yrs& olderCorey Jil DO Work Phone: noms BCP OBComment on above:Well woman exam with routine gynecological exam; Breast cancer screening by mammogram; Postmenopausal stateStart: 06-05-2024 End: 52-69-7269ecqgguzoapCOPDK FAZIONot AvailableStart: 05-30-2024 End: 16-02-5834Lacdip flowsheetCourttommy Jorge OT Work Phone: noms CI PTStart: 05-30-2024 End: 97-36-2390Zwqezo flowsheetCourttommy Jorge OT Work Phone: noms CI PTStart: 05-30-2024 End: 25-66-2417enswzhtvkoCcsovbpx Blackssonido OT Work Phone: noms CI PTComment on above:Left wrist pain (Primary Dx); Oth intartic fracture of lower end of left radius, initStart: 05-26-2024 End: 69-90-9761Qowbtc flowsheetCourttommy Armensonido OT Work Phone: noms CI PTStart: 05-26-2024 End: 07-02-5621Jbbhzo Tommy Galvin OT Work Phone: noMS CI PTStart: 05-26-2024 End: 98-69-4087iskannrausZxnssfin [place] OT Work Phone: NOMS CI PTComment on above:Left wrist pain (Primary Dx); Oth intartic fracture of lower end of left radius, initStart: 05-24-2024 [facility] 05-23[facility]2024 End: 70-94-1940Pohhct Tommy Galvin OT Work Phone: noMS CI PTStart: 05-23-2024 End: 54-13-0109Xbmkki Tommy Galvin OT Work Phone: noMS CI PTStart: 05-23-2024 End: 07-91-3088fljwvcwvhaQqenfbzu [place] OT Work Phone: NOMS CI PTComment on above:Left wrist pain (Primary Dx); Oth intartic fracture of lower end of left radius, initStart: 05-19-2024 End: 13-89-5031Bmtfjg Tommy Galvin OT Work Phone: NOMS CI PTStart: 05-19-2024 End: 27-34-8095Vdzrxa Tommy Galvin OT Work Phone: NOMS CI PTStart: 05-19-2024 End: 19-38-8936wftvampevmOxzydfhy [place] OT Work Phone: noMS CI PTComment on above:Left wrist pain (Primary Dx); Oth intartic fracture of lower end of left radius, initStart: 05-16-2024 End: 34-96-2181plzjdobjxiMvnfodzi [place] OT Work Phone: NOMS CI PTComment on above:Left wrist pain (Primary Dx); Oth intartic fracture of lower end of left radius, initStart: 05-09-2024 End: 72-41-4852rraehhhaboKaorvvmu [place] OT Work Phone: NONS CI PTComment on above:Oth intartic fracture of lower end of left radius, init (Primary Dx); Left wrist painStart: 05-09-2024 End: 20-10-1491Xoppkiibs Result EncounterGeneric External Data ProviderNOMS External Department UnsolicitedStart: 05-09-2024 End: 23-91-2152Isyvuitwa Result EncounterGeneric External Data ProviderNOMS External Department UnsolicitedStart: 79-90-4794jpdcylbmhsYJUDTriHealth Bethesda Butler Hospitaltart: 04-10-2024 End: 28-08-6664Tdqtbjxak Result EncounterGeneric External Data ProviderNOMS External Department UnsolicitedStart: 04-10-2024 End: 15-13-7469Lppmipzjp Result EncounterGeneric External Data ProviderNOMS External Department UnsolicitedStart: 04-04-2024 End: 50-11-3438Zizbngpwv Result EncounterGeneric External Data ProviderNOMS External Department UnsolicitedStart: 04-04-2024 End: 18-03-3679Cbrmiwxya Result EncounterGeneric External Data ProviderNOMS External Department UnsolicitedStart: 03-09-2024 End: 11-84-3992Dixotdlgm Result EncounterRyan Ruiz MD Work Phone: NOMS External Department UnsolicitedStart: 03-09-2024 End: 00-95-9695Shpcrxvrf Result EncounterRyan Ruiz MD Work Phone: NOMS External Department UnsolicitedStart: 03-08-2024 End: 71-82-8220Cbgftp flowsheetRyan Ruiz MD Work Phone: NOMS CI FMStart: 03-08-2024 End: 19-87-4936Ankjpy flowsMeghna Ruiz MD Work Phone: NOMS CI FMStart: 03-08-2024 End: 98-70-2366Sjgnza outpatient visit 25 minutesDasavi Ruiz MD Work Phone: NOII FMComment on above:Paroxysmal atrial fibrillation (CMS/HCC) (Primary Dx); Mixed hyperlipidemia (CMS/HCC); Essential hypertension (CMS/HCC); Other thrombophilia (CMS/HCC); Pulmonary hypertension, unspecified (CMS/HCC); Nonobstructive atherosclerosis of coronary artery (CMS/HCC)Start: 03-08-2024 End: 44-54-4989ilrbjeypgePCYGSU B BERRYNot AvailableStart: 02-18-2024 End: 94-71-3565Tbzpiaocs Result EncounterGeneric External Data ProviderNOMS External Department UnsolicitedStart: 02-18-2024 End: 16-02-3497Xfvjphzlc Result EncounterGeneric External Data ProviderNOMS External Department UnsolicitedStart: 11-24-2023 End: 10-97-0319Ewvdwbefi Result EncounterGeneric External Data ProviderNOMS External Department UnsolicitedStart: 11-24-2023 End: 45-23-7893Glymbfqyn Result EncounterGeneric External Data ProviderNOMS External Department UnsolicitedStart: 04-22-2023 End: 74-79-7726wrugtogstcBaeocw Neha Other [employer] Other Start: 23-09-4214Zqnxrm outpatient visit 15 minutes Broderick SolomonWICK[facility] ClydeStart: 10-23-2022 End: 07-05-7159iyhiddlozvEBESFNZP BROWNFacility:C9Fhutx: 09-10-2022 End: 56-73-2049yemtslogoyZQFZGYXU BROWNFacility:M6Vqwei: 08-25-2022 End: 03-09-0059dpkjmxgjwuEF RINKU PETERSON .Facility:B1Qmnwv: 08-16-2022 End: 26-07-9500sbkdkrepnuVZ RINKU PETERSON .Facility:M8Hkroo: 03-30-2022 End: 25-64-4856gvxvsqqfnyZHPLQQ CRAMERFacility:X6Urczb: 03-12-2022 End: 24-23-4061mmeartdyxiRP TIFFANIE DONAHUEFacility:S8Qmntj: 02-09-2022 End: 85-02-0895hoijfinlqgHS RINKU PETERSON .Facility: Procedures DateProcedureProcedure DetailPerforming ClinicianStart: 75-28-4713BH TOMOSYNTHESIS SCREENING BIGeneric External Data ProviderStart: 02-19-2025 MammographyGeneric ProviderStart: 91-38-9150DH ECHO DOPPLER COMPLETEGeneric External Data ProviderStart: 38-77-6109SY WRIST LT MIN 3 VGeneric External Data ProviderStart: 05-37-3773LJH,APTIMA HPV,AGE GDLNGeneric External Data Provider Start: 99-97-2874RV WRIST LT MIN 3 VGeneric External Data ProviderStart: 52-79-2849FD WRIST LT MIN 3 VGeneric External Data ProviderStart: 19-66-8966ZB WRIST LT MIN 3 VGeneric External Data ProviderStart: 42-16-3065DTK LIPID PROFILE (FASTING)Ryan Ruiz MD Work Phone: Start: 77-72-7308WZ TOMOSYNTHESIS SCREENING BIGeneric External Data ProviderStart: 07-85-0959NwsfgwtawhzOevyrr Berry MD Work Phone: Start: 54-80-7899FV ANGELI PERF SPECT REST STRGeneric External Data ProviderStart: 34-66-5295Hda bone density study 1/> sites axial Day Ruiz MD Work Phone: Plan of Treatment DateCare ActivityDetailAuthorStart: 45-79-6628Ksyfvjrob for malignant neoplasm of colonNOMS HealthcareStart: 44-03-5942Rogjwuank for malignant neoplasm of breastMammogramNOMS HealthcareStart: 03-13-2026Medicare Annual Wellness (AWV) Medicare Annual Wellness (AWV)NOMS HealthcareStart: 06-07-2025 End: 82-11-9452Bjjqcfn encounter procedureNOMS BCP OBStart: 12-02-2025Medicare Annual Wellness (AWV)Medicare Annual Wellness (AWV)NOMS HealthcareStart: 63-28-3787Zdfjwlrxe vaccinationInfluenza Vaccine (#1)NOMS HealthcareStart: 07-67-8889Gmfilyvht for malignant neoplasm of breastMammogramNOMS Healthcare Start: 01-15-2025 End: 51-13-7616Uuijrvu encounter airjnsrww58/14/2025 10:00 AM EDT Office Visit [facility] FM [address] [place] [address] Ryan Ruiz MD [address] [place] [address] ArrivedNOMS CI FMComment on above:ArrivedStart: 09-14-2024 End: 88-98-1596Ddkoyyuvpna colorectal cancer DNA and occult blood screening [Presence] in StoolCologuard colon cancer screening Lab Routine Encounter for screening for malignant neoplasm of colon Expected: 09/14/2024 (Approximate), Expires: 09/14/2025[facility] Work Phone: Comment on above:Expected: 09/14/2024 (Approximate), Expires: 09/14/2025Start: 09-06-2024 End: 69-71-4566Zwtelet encounter imgjgyqfj64/05/2025 8:30 AM EST Office Visit [facility] [address] [facility] [address] [place] [address] Ryan Ruiz MD [address] [facility] [address] [place] [address] NOMS CI FMStart: 06-20-2024 End: 09-97-0105shhasmliop35/17/2024 9:00 AM EST Treatment [facility] PT [address] [facility] [address] [place] [address] Amberly Galvin, OT [address] [place] [address] NOMS CI PTStart: 06-16-2024 End: 09-42-5176agjbjjdfdb40/13/2024 1:00 PM EST Treatment [facility] [address] [place] [address] Jeffery Doe, OT [address] [place] [address] NOMS CI PTStart: 06-13-2024 End: 58-77-6919efzqysughvPYIM CI PTComment on above:ArrivedStart: 06-05-2024 End: 67-77-6659ZLY Skeletal system Views for bone densityDEXA bone density Imaging Routine Postmenopausal state Expected: 06/05/2024 (Approximate), Expires:06/05/2025NOMS HealthcareComment on above:Expected: 06/05/2024 (Approximate), Expires: 06/05/2025Start: 06-05-2024 End: 12-10-6476AM Breast - bilateral ScreeningBilateral screening mammogram Imaging Routine Breast cancer screening by mammogram Expected: 06/05/2024, Expires: 08/06/2025[facility] Work Phone: Comment on above:Expected: 06/05/2024, Expires: 08/06/2025Start: 06-05-2024 End: 91-78-9585Kpepvbz encounter procedureNOMS BCP OBComment on above:Arrived Start: 11-28-2024Medicare Annual Wellness (AWV)Medicare Annual Wellness (AWV) NOMS HealthcareStart: 05-30-2024 End: 70-39-1007wnqmnhuhaq06/26/2024 11:00 AM EST Treatment [facility] [address] [facility] [address] [place] [address] Amberly Galvin, OT [address] [facility] [address] [place] [address] NOMS CI PTStart: 05-26-2024 End: 90-67-0865hckacayxilQUTV CI PTComment on above:ArrivedStart: 05-23-2024 End: 44-02-9403ynymnrclzx12/19/2024 11:00 AM EST Treatment [facility] [address] [facility] [address] [place] [address] Amberly Galvin, OT [address] [facility] [address] [place] [address] NOMS CI PTStart: 05-19-2024 End: 98-70-9034qikqyleagd41/15/2024 11:00 AM EST Treatment [facility] [address] [place] [address] Amberly Galvin, OT [address] [place] [address] NOMS CI PTStart: 05-16-2024 End: 08-16-8407tcbwwkupxn84/12/2024 2:00 PM EST Treatment [facility] [address] [place] [address] Amberly Galvin, OT [address] [place] [address] NOMS CI PTStart: 03-08-2024 End: 02-61-3102Imjpo 1996 panel - Serum or PlasmaLipid panel Lab Routine Mixed hyperlipidemia (CMS/HCC) Expected: 03/08/2024 (Approximate), Expires:03/08/2025 [facility] Work Phone: Comment on above:Expected: 03/08/2024 (Approximate), Expires: 03/08/2025Start: 03-08-2024 End: 92-90-8427Iqkfpba encounter yomvdgnpw30/04/2024 8:30 AM EDT Office Visit [facility] [address] [place] [address] Ryan Ruiz MD [address] [place] [address] ArrivedNOMS CI FMComment on above:ArrivedStart: 03-05-2024 Influenza vaccinationInfluenza Vaccine (#1)NOMS HealthcareStart: 03-27-2023 Screening for malignant neoplasm of colonNOMS HealthcareStart: 2017 Pneumococcal Vaccine: 65+ Years (1 of 1 - PCV)Pneumococcal Vaccine: 65+ Years (1 of 1 - PCV)[facility] HealthcareStart: 21-49-8236Phxnobxvxhuz Vaccine: 65+ Years (1 of 2 - PCV)Pneumococcal Vaccine: 65+ Years (1 of 2 - PCV)[facility] HealthcareStart: 22-40-7803Imylzleliceh Vaccine: 65+ Years (1 of 2 - PCV)Pneumococcal Vaccine: 65+ Years (1 of 2 - PCV)[facility] HealthcareStart: 19-63-1177Sykazrigk for malignant neoplasm of colonNOMS HealthcareTHIN PREP TIS PAP AND HR HPV DNATHIN PREP TIS PAP AND HR HPV DNA Pathology and Cytology Routine Well woman exam with routine gynecological exam Ordered: 06/05/2024NOIL HealthcareComment on above:Ordered: 06/05/2024 Immunizations Immunization DateImmunizationNotesCare AvdqqstsLjozhxyo06-16-4739hitsram toxoid, reduced diphtheria toxoid, and acellular pertussis vaccine, adsorbedThomas [place] Other [facility] [employer] Other Payers DatePayer CategoryPayerPolicy [id number] MEDICARE ADVANTAGE [id number] 2022MedicareAETNA MEDICARE ADVANTAGE AETNA MEDICARE REPLACEMENT [id number] 2021-Present [address] [place] [id number] [id number] [id number] 2.16.840.1.658749.3.579.2.593 [id number] 2.16.840.1.131733.3.579.[id number] 2.16.840.1.955111.3.57[id number] 2.16.840.1.839780.3.57[id number] 2.16.840.1.440060.3.57[id number] 2.16.840.1.997125.3.579.[id number] 2.16840.1.098363.3.57[id number] 2.16.840.1.274527.3.57[id number] 2.16.840.1.368370.3.579.[id number] 2.16.840.1.103050.3.57[id number] 2.16840.1.009987.3.579.[id number] 2.16.840.1.257592.3.579.[id number] 2.16.840.1.584252.3.579.[id number] 2.16.840.1.404261.3.579.2.[id number] 2.16840.1.565166.3.579.2.3[id number] 2.16.840.1.062626.3.57[id number] 2.16.840.1.195740.3.579.[id number] 2..840.1.875829.3.579.[id number] 2.16.840.1.885944.3.579.2.1259 Social History DateTypeDetailFacilityUnknown if ever smokedAlexandria [employer] Other Start: 03-08-2024 End: 30-37-2449Ims Assigned At [facility] [employer] Other Start: 79-38-2764Zhlouzl smoking status NHISNever smoked tobaccoNOMS HealthcareStart: 75-58-5211Fealyau use and exposureSmokeless tobacco non-userNOMS HealthcareStart: 12-31-2022 End: 09-77-7503Rkwntcfqj beverage intakeLifetime non-drinker (finding)[facility] HealthcareStart: 03-08-2024 End: 46-64-9910Hjrwoxd of Social functionNOMS HealthcareStart: 93-42-2632Gxq assigned at [facility] HealthcareStart: 23-66-8623Irylwm identityIdentifies as female gender (finding)[facility] HealthcareStart: 38-34-3131JxcQebqamNZUJ HealthcareNEGATED: Highlighted rowStart: NINFHistory of tobacco usePassive smokerNOIL Healthcare Functional Status UmkzXsrzmxfajmNaiunyZxcgvsor95-82-8768Cefatiy Health Questionnaire 2 item (PHQ- 2) [Reported][facility] Clinical Notes 04-22-2023 to 01-15-2025 Note Date & QcquMyrxZipsitay13-72-3447 History of Present illness Narrative* Ryan Ruiz MD - 01/15/2025 10:00 AM EDT Images from the original note were not included. HPI Follow-up Additional comments: [facility] ER 01/03/25 dx: fall at home, left wrist sprain no med changes made discharged home Last edited by Nayeli Davison LPN on 01/15/2025 9:58 AM. Subjective Patient ID: Sharri Cooney is a 74 y.o. female who presents for Follow-up ([facility] 01/03/25 dx: fall at home, left [...] No follow-ups on file. documented in this encounterSaint Louis University HospitalKqdxueyben07-04-1243 History of Present illness Narrative* Dwayne Chamberlain NP - 09/14/2024 10:00 AM EDT Images from the original note were not [...] Do you have a medical power of assistant attorney general?: Yes Who is your medical power of assistant attorney general?: daughter Objective : BP 128/74 Pulse 78 [...] tablet, apixaban (Eliquis) 5 MG tablet continue asordered, stable. Followed per cardiology 5. Benign hypertensive [...] on September 14, 2024 documented in this [facility]03-13-2025 Instructions* Patient Instructions* Dwayne Chamberlain NP - 09/14/2024 10:00 AM EDT Cologuard requisition sent Bone density sent per ABSTRACTOR Mammogram order sent per ABSTRACTOR documented in this [facility]01-23-2025 NoteUT Electrophysiology Consult Note Reason for visit: Patient [...] or signs patient was recently seen in [facility] 08/2022 for palpitations. She was found [...] palpitations, lightness, dizziness, fatigue 08/2022 ECG by [facility]- appears to be sinus tach with [...] alcohol infrequently, no significant caffeine intake, no vroy-lhz-numhuhi decongestions Family history: Her mother of a brain aneurysm, no history of premature coronary artery disease, no history of arrhythmias Medications: Eliquis 5 mg p.o. twice daily, lisinopril 10/hydrochlorothiazide 12.5 mg daily, Toprol-XL 50 mg daily, Zocor 10 mg daily 03/03/[address] Stephanie estevez?herb; Afib H?PI: 71-year-old woman with HTN [...] alcohol infrequently, no significant caffeine intake, no xsth-pss-ygcymad decongestions Family history: Her mother of a [...] and systolic functio (more content not included)... [facility]12-10-2024 History of Present illness Narrative* Amberly Galvin OT - 06/13/2024 1:00 PM EST Occupational Therapy Occupational Therapy Discharge Visit Patient [...] and wrist flexion/extension. Intrinsic stretch x5 to eachdigit. LLPS increased to 3# handweight flex/extension x2 minutes. light manual resistance for wrist flex/extension 1x20 with good toleration. 30' Fluido complete x10 minutes for tissue preconditioning/ supervised KAI. AAROM x20 to all wrist and thumb planes. AROM for sup/pro/flex/extension and UD/RD. Weight added 2# 1x20 fatigue evident. MRE for AB/ADD x25 of each for intrinsic strengthening. Therabar for wrist strengthening red in 4 posi tions.UD/RD complete increased to 3# handweight complete. T-putty for added sterilisation technician strengthening complete with good toleration. Encouraged ice/ biofreeze for soreness at night. Pt verbalized understanding of all education. Treatment: Manual: STM/ DTM along the L wrist Therapeutic Exercise: light strengthening of the wrist/forearm. Therapeutic Activity: Modalities: Neuro Re-Ed: Assessment/Plan Short Term Goals: Pt will be independent with home exercise program for light strengthening and ROM at discharge. GOAL MET Halfway Goals: PRWHE Pain Score < 5/50 ( IE: ) GOAL MET 3/50 PRWHE Functional Score <3/100 ( IE: 7/100 ) GOAL MET 3/100 Increase wrist ROTHMAN to at least 90% pain free at discharge. (IE: 71%) GOAL NOT MET 86.5% - progressing with HEP. Pt to increase sterilisation technician strength by 10# and LP by 2# pain free at discharge. ( L hand 6# LP: 2# ) GOAL MET L sterilisation technician 20# LP: 5#) Pt will be able to use Left UE in light daily activities.GOAL MET Pt tolerated session well and has met all goals with the exception of range of motion of the wrist at 86.5%. This will continue to improve with established HEP. Pt confident of HEP. Will reach out tous should any issues arise. P : discharge after 30 days. documented in this encounterSaint Louis University HospitalWarcttubfy88-55-9482 History of Present illness Narrative* Jeffery Doe, OT - 06/09/2024 9:30 AM EST Occupational Therapy Occupational Therapy Evaluation Visit Patient [...] Therabar for wrist strengthening red in 4 posi tions.UD/RD complete increased to 3# handweight complete. T-putty for added sterilisation technician strengthening complete with good toleration. Encouraged ice/ biofreeze for soreness at night. Pt verbalized understanding of all education. Treatment: Manual: STM/ DTM along the L wrist Therapeutic Exercise: light strengthening of the wrist/forearm. Therapeutic Activity: Modalities: Neuro Re-Ed: Assessment/Plan Pt tolerated session well. Fatigue with all exercises with added resistance. Able to increase to 3#for PRE's. OT remains necessary to continue to increase wrist/ forearm strength in order to complete all I/ADL tasks pain free at discharge. P : Continue with POC, progress per toleration. documented in this encounterSaint Louis University [id number] History of Present illness Narrative* DONNA Good - 06/05/2024 11:00 AM EST Reason for Appointment: Patient ID: Sharri Cooney is a 73 y.o. female who presents for [facility] Visit Patient presents today for Annual [...] Noted Anxiety disorder, unspecified 10/28/2023 Atrial fibrillation ([facility]/HCC) 02/24/2021 Benign hypertensive heart disease without congestive heart failure ([facility]/HCC) 10/29/2023 Essential hypertension ([facility]/HCC) 12/30/2022 Hypokalemia 10/29/2023 Hypomagnesemia 10/29/2023 Mass of left adrenal gland ([facility]) 12/30/2022 Mixed hyperlipidemia ([facility]/HCC) 10/29/2023 Nonrheumatic mitral valve regurgitation 12/30/2022 Pulmonary hypertension ([facility]) 12/06/2023 Osteopenia of multiple sites 12/06/2023 Nonobstructive atherosclerosis of coronary artery ([facility]/HCC) 03/08/2024 Oth intartic fracture of lower end of left radius, init 05/09/2024 Left wrist pain 05/09/2024 Resolved Ambulatory Problems Diagnosis Date Noted No Resolved Ambulatory Problems Past Medical History: Diagnosis Date Guillain Jarquin syndrome (CMS/HCC) Hypertension (CMS/HCC) HISTORY PAST MEDICAL HISTORY SOCIAL HISTORY Past Medical History: Diagnosis Date Guillain Jarquin syndrome (CMS/HCC) Hypertension ([facility]) Social History Tobacco Use Smoking status: Never [...] nursing note reviewed. Exam conducted with a reel fed printer present. Vitals: Estimated body mass index is [...] of: Theo Ley DO documented in this encounterSaint Louis University [id number] History of Present illness Narrative* Amberly Galvin OT - 05/30/2024 11:00 AM EST Occupational Therapy Occupational Therapy Treatment Visit Patient Name: Sharri Cooney Today's Date: 05/30/2024 Linked Episodes Type: Episode: Status: Noted: Resolved: Last update: Updated by: Occupational Therapy Reji wrist fx Active 05/09/2024 05/30/2024 1:40 PM [...] Therabar for wrist strengthening red in 4 posi tions.UD/RD complete increased to 3# handweight complete. T-putty for added sterilisation technician strengthening complete with good toleration. Encouraged ice/ biofreeze for soreness at night. Pt verbalized understanding of all education. Treatment: Manual: STM/ DTM along the L wrist Therapeutic Exercise: light strengthening of the wrist/forearm. Therapeutic Activity: Modalities: Neuro Re-Ed: Assessment/Plan Pt tolerated session well. Fatigue with all exercises with added resistance. Able to increase to 3#for PRE's. OT remains necessary to continue to increase wrist/ forearm strength in order to complete all I/ADL tasks pain free at discharge. P : Continue with POC, progress per toleration. documented in this encounterSaint Louis University [id number] History of Present illness Narrative* Amberly Galvin OT - 05/26/2024 11:00 AM EST Occupational Therapy Occupational Therapy Treatment Visit Patient Name: Sharri Cooney Today's Date: 05/26/2024 Linked Episodes Type: Episode: Status: Noted: Resolved: Last update: Updated by: Occupational Therapy L wrist fx Active 05/09/2024 05/26/2024 11:02 AM Amberly Galvin OT Comments: Visit number: 11/13 Timed Code Treatment minutes: 60 Total Treatment Time: 60 Subjective Pain: 2/10. It is feeling good today. 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 T-putty for added sterilisation technician strengthening complete with good toleration. Encouraged [...] POC, progress per toleration. documented in this encounterSaint Louis University [id number] History of Present illness Narrative* Amberly Galvin OT - 05/23/2024 11:00 AM EST Occupational Therapy Occupational Therapy Treatment Visit Patient Name: Sharri Cooney Today's Date: 05/23/2024 Linked Episodes Type: Episode: Status: Noted: Resolved: Last update: Updated by: Occupational Therapy L wrist fx Active 05/09/2024 05/23/2024 12:54 PM Amberly Galvin OT Comments: Visit number: 10/14 Timed Code Treatment minutes: 60 Total Treatment Time: 60 Subjective Pain: 08/14. I carried all my [place] totes up [...] Therabar for wrist strengthening red in 4 posi tions.UD/RD complete increased to 2# handweight complete. T-putty for added sterilisation technician strengthening complete with good toleration. Trialed [...] POC, progress per toleration. documented in this encounterSaint Louis University HospitalAlqdwzhzip15-01-0539 History of Present illness Narrative* Amberly Galvin OT - 05/19/2024 11:00 AM EST Occupational Therapy Occupational Therapy Treatment Visit Patient [...] my wrist. I peeled 4 potatoes yesterday buthad my brace on. It gets sore on [...] Therabar for wrist strengthening red in 4 posi tions.UD/RD complete increased to 2# handweight complete. T-putty for added sterilisation technician strengthening complete with good toleration. Trialed [...] POC, progress per toleration. documented in this encounterSaint Louis University [id number] History of Present illness Narrative* Amberly Galvin OT - 05/16/2024 2:00 PM EST Occupational Therapy Occupational Therapy Treatment Visit Patient [...] Therabar for wrist strengthening red in 4 posi tions.UD/RD complete increased to 2# handweight complete. T-putty for added sterilisation technician strengthening complete with good toleration. Trialed [...] POC, progress per toleration. documented in this encounterSaint Louis University HospitalXjftnhqitd73-55-6969 History of Present illness Narrative* Amberly Galvin OT - 05/09/2024 3:30 PM EST Occupational Therapy Occupational Therapy Evaluation Visit Patient [...] as I possibly can in/out of cast .Extension is main deficit at this time. Pain: [...] distal radius fx. Objective PRWHE Pain Score: 1350 PRWHE Functional Score: 7/100 Hand/Wrist Musculoskeletal Exam [...] deviation: 4/5. Pronation: 4/5. Supination: 4/5. L sterilisation technician strength: 6# LP: 2# R sterilisation technician strength: 35# LP: 9# Treatment: Education: [...] for light strengthening and ROM at discharge. 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 (IE: 71%) Pt to increase sterilisation technician strength by 10# and LP by 2# pain free at discharge. ( L hand 6# LP: 2# ) Pt will be able to use ;eft UE in light daily activities. Pt will benefit from skilled OT to address the above impairments for 2x/week for 4 weeks. I hereby deem this POC medically necessary. Please sign below. Date: documented in this encounterSaint Louis University HospitalUctqcmovlw31-48-0933 History of Present illness Narrative* Ryan Ruiz MD - 03/08/2024 8:30 AM EDT Subjective Patient ID: Sharri Cooney is a [...] advanced age (older than 55 for men, 65for women). Hypertension Pertinent negatives include no chest [...] 09/05/2024) for Routine F/U. documented in this encounterSaint Louis University HospitalFhmptdoffg86-56-4038 Evaluation note* Encounter Date Diagnosis Assessment Notes Treatment Notes Treatment Clinical Notes Apr, Upper respiratory tr act infection, unspecified type (ICD-10 - J06.9) Apr,OVID-19 virus infection (ICD-10 - U07.1)I feel the risk is not worth the [...] molnupiravir in stock. Will prescribe azithromycin instead. Apr,ontact with and (suspected) exposure to covid-19 (ICD-10 - Z20.822) Apr,OtherDrink plenty of fluids and get plenty of rest. If symptoms worsen or do not improve in 3-5 days, return to urgent care if you can not get in to see your pcp. Take tylenol as needed. [employer] Other Evaluation note* Diagnosis Oth intartic fracture of lower end of left radius, init- Primary Left wrist pain Pain in joint, forearm documented in this encounter [facility] HealthcareEvaluation note* Diagnosis Left wrist pain- Primary [...] Type Description Date Medical History HTN Medical HistoryHYPERLIPIDEMIAMedical HistorySHINGLESMedical HistoryGUILLAIN- BARRE SYNDROMEMedical HistoryAfibSurgical HistoryTUBALIGATIONSurgical HistoryEYE SURGERYSurgical HistoryMACULAR HOLESurgical HistoryLUMP REMOVED FROM LEFT BREASTSurgical HistorybunionectomyHospitalization History3 CHILD BIRTHS Hospitalization HistoryGUILLAIN-BARRE SYNDROME [place] [employer] Other Reason for visit Narrative* Rehabilitation - Outpatient (Routine) - AuthorizedSpecialtyDiagnoses / ProceduresReferred By ContactReferred To ContactOccupational Therapy / Physical Therapy Diagnoses Other intraarticular fracture of lower end of left radius, subsequent encounter for closed fracturewith routine healing PO L Wrist Procedures CO OCCUPATIONAL THERAPY EVALUATION EVALUATION Tiffanie Villanueva MD [address] [place] [address] Phone: tel: fax: Amberly Galvin, OT [address] [place] [address] Phone: tel: fax: Referral IDStatusReasonStart DateExpiration DateVisits RequestedVisits [id number] [facility] HealthcareReason for visit Narrative* Rehabilitation - Outpatient (Routine) - ClosedSpecialtyDiagnoses / ProceduresReferred By ContactReferred To Contact Occupational Therapy / Physical Therapy Diagnoses Other intraarticular fracture of lower end of left radius, subsequent encounter for closed fracturewith routine healing PO L Wrist Procedures CO OCCUPATIONAL THERAPY EVALUATION EVALUATION Tiffanie Villanueva MD [address] [place] [address] Phone: tel: fax: Amberly Galvin, OT [address] [place] [address] Phone: tel: fax: Referral IDStatusReasonStart DateExpiration DateVisits RequestedVisits [id number] [facility] Summary Purpose Family History No Family History Records FoundNo Family History Records FoundNo Family History Records FoundNo Family History Records Found Advance Directives No Advanced Directives Records FoundNo Advanced Directives Records FoundNo Advanced Directives Records FoundNo Advanced Directives Records Found Additional Source Comments INFORMATION SOURCE (unrecogn ized section and content) DATE CREATED AUTHOR 03/13/2021 [facility] DATE CREATED AUTHOR AUTHOR'S ORGANIZ ATION 10/30/[address] [facility] DATE CREATED AUTHOR AUTHOR'S ORGANIZ ATION 01/18/2025 [facility] EPIC DATE CREATED AUTHOR AUTHOR'S ORGANIZ ATION 04/30/2025 [facility] REASON FOR VISIT (unrecogniz ed section and content) ReasonCommentsWell Women VisitReasonCommentsHypertensionReasonCommentsMedicare Annual Wellness Visit SubsequentReasonCommentsFollow-upTB ER 01/03/25 dx: fall at home, left wrist sprain no med changes made discharged home Care Teams (unrecognized sec tion and content) Team MemberRelationshipSpecialtyStart DateEnd Date Rinku Peterson MD [address] [place] [address] PCP - GeneralFamily Medicine12/31/22Team MemberRelationshipSpecialtyStart DateEnd Date Rinku Peterson MD [address] [place] [address] PCP - GeneralFamily Medicine12/31/22 Ryan Ruiz MD [address] [facility] [address] [place] [address] PCP - [employer]05/05/24Team MemberRelationshipSpecialtyStart DateEnd Date Rinku Peterson MD [address] [place] [address] PCP - GeneralFamily Medicine12/31/22 Ryan Ruiz MD [address] [facility] [address] [place] [address] PCP - [employer]05/05/24Team MemberRelationshipSpecialtyStart DateEnd Date Rinku Peterson MD [address] [place] [facility] [place] [address] PCP - GeneralFamily Medicine12/31/22 Ryan Ruiz MD [address] [facility] [address] [place] [address] PCP - [employer]05/05/24Team MemberRelationshipSpecialtyStart DateEnd Date Rinku Peterson MD [address] [place] [facility] [place] [address] PCP - GeneralFami Medicine12/31/22 Ryan Ruiz MD [address] [facility] [address] [place] [address] PCP - Aet05/05/24Team MemberRelationshipSpecialtyStart DateEnd Date Rinku Peterson MD [address] [place] [address] PCP - GeneralFamily Medicine12/31/22 Ryan Ruiz MD [address] [facility] [address] [place] [address] PCP - Aet05/05/24Team MemberRelationshipSpecialtyStart DateEnd Date Rinku Peterson MD [address] [place] [facility] [place] [address] PCP - Generalmi Medicine12/31/22 Ryan Ruiz MD [address] [facility] [address] [place] [address] PCP - [employer]05/05/24Team MemberRelationshipSpecialtyStart DateEnd Date Rinku Peterson MD [address] [place] [facility] [place] [address] PCP - GeneralFamily Medicine12/31/22 Ryan Ruiz MD [address] [facility] [address] [place] [address] PCP - [employer]05/05/24Team MemberRelationshipSpecialtyStart DateEnd Date Rinku Peterson MD [address] [place] [facility] [place] [address] PCP - GeneralFamily Medicine12/31/22Team MemberRelationshipSpecialtyStart DateEnd Date Rinku Peterson MD [address] [place] [facility] [place] [address] PCP - GeneralFamily Medicine12/31/22Team MemberRelationshipSpecialtyStart DateEnd Date Rinku Peterson MD [address] [place] [facility] [place] [address] PCP - GeneralFamily Medicine12/31/22Team MemberRelationshipSpecialtyStart DateEnd Date Rinku Peterson MD [address] [place] [facility] [place] [address] PCP - GeneralFamily Medicine12/31/22 Ryan Ruiz MD [address] [facility] [address] [place] [address] PCP - [employer]et[employer]11Team MemberRelationshipSpecialtyStart DateEnd Date Rinku Peterson MD [address] [place] [address] [place] [address] PCP - GeneralFamily Medicine12/31/22 Ryan Ruiz MD [address] [place] [address] PCP - [employer]et[employer]11Team MemberRelationshipSpecialtyStart DateEnd Date Rinku Peterson MD [facility] - [facility]12/31/22 Ryan Ruiz MD [address] [facility] [address] [place] [address] PCP - [employer]05/05/24Team MemberRelationshipSpecialtyStart DateEnd Date Rinku Peterson MD PCP - [facility]Hamilton [facility]12/31/22 Ryan Ruiz MD [address] [facility] [address] [place] [address] PCP - [employer]05/05/24Team MemberRelationshipSpecialtyStart DateEnd Date Rinku Peterson MD PCP - [facility]Hamilton [facility]12/31/22 Ryan Ruiz MD [address] [facility] [address] [place] [address] PCP - [employer]11Team MemberRelationshipSpecialtyStart DateEnd Date Rinku Peterson MD [facility]12/31/22 Ryan Ruiz MD [address] [facility] [address] [place] [address] [facility]05/05/24Team MemberRelationshipSpecialtyStart DateEnd Rinku Peterson MD [facility] - [facility]12/31/22 Ryan Ruiz MD [address] [facility] [address] [place] [address] [facility] - [facility]05/05/24 FOR RECORDS PERTAINING TO PATIENTS WHO ARE [...] BE BASED ON THE PRIMARY CLINICAL RECORDS. [facility]. provides no warranty or guarantee of the accuracy or completeness of information in this document.
--- NOTE | 2025-06-29 18:21 | ED.GENADUL1 ---
HPI HPI - General Adult General Chief complaint: Fall Stated complaint: FELL DOWN STEPS/ HIT HER HEAD Time Seen by Provider: 06/29/25 16:29 Source: family Mode of arrival: Wheelchair Limitations: no limitations History of Present Illness HPI narrative: Patient is a 74-year-old female presenting to the emergency department for evaluation of a head injury. Patient states she was walking down the stairs when she tripped and fell down 6 steps. She states she hit the back of her head during this time. She had no nausea or vomiting. She denies any loss of consciousness. She states she bit her lip, but denies any other injuries. She states she is on Eliquis, which was the main reason for ED visit. Related Data Home Medications ?Medication ?Instructions ?Recorded ?Confirmed apixaban 5 mg tablet (Eliquis) 5 mg PO BID 10/26/23 01/03/25 potassium chloride 10 mEq 20 meq PO DAILY 10/26/23 06/29/25 tablet,extended release simvastatin 10 mg tablet 10 mg PO .qhs 10/26/23 06/29/25 metoprolol succinate 100 mg 100 mg PO DAILY 03/24/24 06/29/25 tablet,extended release 24 hr sertraline 50 mg tablet 50 mg PO DAILY 03/24/24 06/29/25 Allergies Allergy/AdvReac Type Severity Reaction Status Date / Time ciprofloxacin (From Cipro) Allergy Severe Unknown Verified 06/29/25 16:30 levofloxacin (From Levaquin) Allergy Severe Joint Pain Verified 06/29/25 16:30 Sulfa (Sulfonamide Allergy Flushing Verified 06/29/25 16:30 Antibiotics) Opioid HPI Opioid Management Most Recent Opioid Data: Last Pain Scale 5 Today, 16:30 Review of Systems ROS Status of ROS 10 or more systems reviewed and unremarkable except as noted in history and below PFSH PFSH Social History Little interest or pleasure in doing things: not at all Feeling down, depressed, or hopeless: not at all Exam Narrative Exam Narrative: CONSTITUTIONAL: Well-appearing, answering questions and following commands appropriately SKIN: Was warm and dry. HEAD: Other than a small posterior scalp hematoma, her head is atraumatic and normocephalic. No C-spine tenderness. EYES: Sclerae white. EARS, NOSE, THROAT: Moist oral mucosa. RESPIRATORY: Clear to auscultation bilaterally, no wheezes, crackles, or stridor, no use of accessory muscles CARDIOVASCULAR: Normal rate and regular rhythm. There is no S3, S4, murmur, rub. GASTROINTESTINAL: Abdomen is soft, nontender, nondistended. MUSCULOSKELETAL: No peripheral edema. No tenderness throughout all 4 extremities. Full range of motion x 4 extremities. NEUROLOGIC: Patient is awake and alert. Equal strength in all 4 extremities. Facies were symmetrical. GCS 15. Constitutional Vital Signs, click to edit/add: Last Vital Signs Temp 98.5 F 06/29/25 16:30 Pulse 92 H 06/29/25 16:30 Resp 20 06/29/25 16:30 BP 173/82 H 06/29/25 16:30 Pulse Ox 95 06/29/25 16:30 Course Vital Signs Vital signs: Vital Signs Temperature 98.5 F 06/29/25 16:30 Pulse Rate 92 H 06/29/25 16:30 Respiratory Rate 20 06/29/25 16:30 Blood Pressure 173/82 H 06/29/25 16:30 Pulse Oximetry 95 06/29/25 16:30 Temperature 98.5 F 06/29/25 16:30 Pulse Rate 92 H 06/29/25 16:30 Respiratory Rate 20 06/29/25 16:30 Blood Pressure 173/82 H 06/29/25 16:30 Pulse Oximetry 95 06/29/25 16:30 Medical Decision Making MDM Narrative Medical decision making narrative: Patient is a 74-year-old female presenting to the emergency department for evaluation of a head injury after mechanical fall down 6 steps earlier today. Her vital signs are within normal limits. She is afebrile and hemodynamically stable. Other than a posterior scalp hematoma she has an otherwise normal physical examination. GCS of 15. Mentating appropriately. Differential diagnosis includes closed head injury, concussion, intracranial hemorrhage. CT head independently reviewed/interpreted by myself demonstrated no acute intracranial pathology or hemorrhage. I do believe the patient is stable for discharge. Patient's presentation is most likely consistent with mild closed head injury. They were instructed to follow up with her PCP as needed. Return precautions were given including any new or worsening symptoms, including nausea, vomiting, lethargy, or altered mentation. Patient and her family members at the bedside understands and agrees to the plan. FINAL IMPRESSION: #Acute closed head injury on anticoagulation DISPOSITION: Discharged home CONDITION: Good Imaging Data CT scan - head: Attestation: I personally reviewed and interpreted this imaging study as follows: Discharge Plan Discharge Chief Complaint: Fall Clinical Impression: Closed head injury Patient Disposition: Home, Self-Care Time of Disposition Decision: 17:17 Condition: Good Mode of Transportation: Private Vehicle Prescriptions / Home Meds: No Action metoprolol succinate 100 mg tablet extended release 24 hr 100 mg PO DAILY sertraline 50 mg tablet 50 mg PO DAILY simvastatin 10 mg tablet 10 mg PO .qhs Eliquis 5 mg tablet 5 mg PO BID potassium chloride 10 mEq tablet extended release 20 meq PO DAILY Print Language: Maltese Instructions: Head Injury (ED) Referrals: TITA SHELDON [Primary Care Provider, Internal Medicine] - 1 week Discharge Date/Time: 06/29/25 17:24
== END 2025-06-29 17:24 | disposition home or self-care (01) ==
PROVIDERS: Emergency Provider Student in an Organized Health Care Education/Training Program; PCP Internal Medicine
DX: S09.8XXA Other specified injuries of head, initial encounter (principal); W10.8XXA Fall (on) (from) other stairs and steps, initial encounter; Z79.01 Long term (current) use of anticoagulants
CPT/HCPCS: 70450; 99284